=== PATIENT | female | born 1945 | race Caucasian/White ===

== ENCOUNTER 2018-11-11 01:39 | Emergency (ER) | payer MEDICARE ==
[~2018-11-11] VITALS: Ht 167.6 cm; Wt 52.2 kg
--- OUTSIDE RECORDS SUMMARY | ~2018-11-11 | XMS | Clinical Summary ---
Demographics + + + | Address | [address] | | | [place] [address] | + + + | Home Phone | | + + + | Preferred Language | Unknown | + + + | Marital Status | | + + + | Advent Affiliation | 1041 | + + + | Race | Unknown | + + + | Ethnic Group | Unknown | + + + Author + + + | Author | [facility] | + + + | Organization | [facility] | + + + | Address | [...] Team Providers + +------+ + | Care Special Events Assistant Name | Role | Phone | + +------+ + | Juan Dong MD | PP | | + +------+ + Allergies + + + + + + | Active Allergy | Reactions | Severity | Noted | Comments | | | | | Date | | + + + + + + | Codeine | Rash | Medium | 12/31/19 | | | | | | 15 | | + + + + + + | Prednisone | Red Man Syndrome | Medium | 01/19/20 | | | | | | 15 | | + + + + + + | Fluoxetine | Nausea and Vomiting | Low | 01/19/20 | | | | | | 15 | | + + + + + + | Zoledronic Acid | Nausea and Vomiting, | Medium | 01/22/20 | Loss of muscle | | | Other (See | | 18 | | | | Comments), Muscle | | | | | | Pain | | | | + + + + + + | Serotonin Reuptake | Anxiety, Rash | Medium | 12/31/19 | | | Inhibitors (Ssris) | | | 15 | | + + + + + + | Tramadol | Other (See Comments) | Medium | 01/19/20 | Blisters | | | | | 15 | | + + + + + + Current Medications + + +--------+---------+------+------+-------+ | Prescription | Sig. | Disp. | Refills | Star | End | Statu | | | | | | t | Date | s | | | | | | Date | | | + + +--------+---------+------+------+-------+ | omeprazole | Take 20 mg by mouth | | | | | Activ | | (PRILOSEC) 20 MG | every morning before | | | | | e | | capsule | breakfast. | | | | | | + + +--------+---------+------+------+-------+ | clonazePAM | Take 0.25 mg by | | | | | Activ | | (KLONOPIN) 0.5 MG | mouth daily. | | | | | e | | tabletIndications: | Indications: Take | | | | | | | Take half tabe by | half tabe by mouth | | | | | | | mouth every day. | every day. | | | | | | + + +--------+---------+------+------+-------+ | Coenzyme Q10 | Take by mouth | | | | | Activ | | (COQ10) 100 MG CAPS | daily. | | | | | e | + + +--------+---------+------+------+-------+ | Multiple | Take 1 tablet by | 30 | 0 | 05/0 | | Activ | | Vitamins-Minerals | mouth daily with | tablet | | 8/20 | | e | | (MULTIVITAMIN WITH | breakfast. | | | 15 | | | | MINERALS) tablet | | | | | | | + + +--------+---------+------+------+-------+ | Cholecalciferol | Take 2,000 Units by | | | | | Activ | | (VITAMIN D-3 PO) | mouth daily. | | | | | e | + + +--------+---------+------+------+-------+ | loratadine | Take 10 mg by mouth | | | | | Activ | | (CLARITIN) 10 MG | daily. | | | | | e | | tablet | | | | | | | + + +--------+---------+------+------+-------+ | ascorbic acid | Take 250 mg by mouth | | | | | Activ | | (VITAMIN C) 250 MG | daily. | | | | | e | | tablet | | | | | | | + + +--------+---------+------+------+-------+ | ferrous sulfate, | Take 65 mg of iron | | | | | Activ | | 65 FE, 324 (65 FE) | by mouth daily. | | | | | e | | MG EC tablet | | | | | | | + + +--------+---------+------+------+-------+ | aspirin 81 MG EC | Take 81 mg by mouth | | | | | Activ | | tablet | daily. | | | | | e | + + +--------+---------+------+------+-------+ | famotidine | Take 40 mg by mouth | | | | | Activ | | (PEPCID) 40 MG | daily. | | | | | e | | tablet | | | | | | | + + +--------+---------+------+------+-------+ | cyanocobalamin | Take 500 mcg by | | | | | Activ | | (VITAMIN B-12) 500 | mouth daily. | | | | | e | | MCG tablet | | | | | | | + + +--------+---------+------+------+-------+ Active Problems + + + | Problem | Noted Date | + + + | Sepsis(995.91) | 01/02/2015 | + + + | Anemia, unspecified | 01/02/2015 | + + + | Thrombocytopenia, unspecified | 01/02/2015 | + + + | Elevated liver enzymes | 01/02/2015 | + + + | STEMI (ST elevation myocardial infarction) | 12/31/2014 | + + + | Rhabdomyolysis | 12/30/2014 | + + + | BERTIN (acute kidney injury) | 12/30/2014 | + + + Resolved Problems + + + + | Problem | Noted | Resolved | | | Date | Date | + + + + | STEMI (ST elevation myocardial infarction) | 01/02/20 | | | | 15 | 5 | + + + + | Fever, unspecified | 12/31/19 | | | | 15 | 5 | + + + + | Delirium | 12/31/19 | | | | 15 | 5 | + + + + | Acute respiratory failure (HCC) | 12/31/19 | | | | 15 | 5 | + + + + | Metabolic acidosis | 12/31/19 | | | | 15 | 5 | + + + + | Severe sepsis with septic shock (HCC) | 12/31/19 | | | | 15 | 5 | + + + + Family History + + +------+ + | Medical History | Relation | Name | Comments | + + +------+ + | Diabetes type II | Father | | | + + +------+ + | Hypertension | Mother | | | + + +------+ + + +------+ + + | Relation | Name | Status | Comments | + +------+ + + | Father | | | acute pulmonary edema | | | | (Age | | | | | 83) | | + +------+ + + | Mother | | | | | | | (Age | | | | | 87) | | + +------+ + + Social History + +-------+ +--------+------+ | Tobacco Use | Types | Packs/Day | Years | Date | | | | | Used | | + +-------+ +--------+------+ | Former Smoker | | | | | + +-------+ +--------+------+ + +---+---+---+ | Smokeless Tobacco: | | | | | Never Used | | | | + +---+---+---+ + + | Comments: Cigars in college | + + + + +---------+ + | Alcohol Use | Drinks/We | oz/Week | Comments | | | ek | | | + + +---------+ + | Yes | | | | + + +---------+ + + + + | Sex Assigned at | Date Recorded | | | | + + + | Not on file | | + + + Last Filed Vital Signs + + + + | Vital Sign | Reading | Time Taken | + + + + | Blood Pressure | 110/70 | 01/21/2018 8:33 AM PDT | + + + + | Pulse | 69 | 01/21/2018 8:33 AM PDT | + + + + | Temperature | 36.3 C (97.4 F) | 01/11/2015 2:59 PM PDT | + + + + | Respiratory Rate | 20 | 01/21/2018 8:33 AM PDT | + + + + | Oxygen Saturation | 99% | 01/21/2018 8:33 AM PDT | + + + + | Inhaled Oxygen | - | - | | Concentration | | | + + + + | Weight | 53.2 kg (117 lb 3.2 | 01/21/2018 8:33 AM PDT | | | oz) | | + + + + | Height | 167.6 cm (5' 6") | 01/21/2018 8:33 AM PDT | + + + + | Body Mass Index | 18.92 | 01/21/2018 8:33 AM PDT | + + + + Plan of Treatment + + + + + | Health Maintenance | Due Date | Last Done | Comments | + + + + + | Vaccine: | | | | | Dtap/Tdap/Td (1 - | 6 | | | | Tdap) | | | | + + + + + | Breast Cancer | | | | | Screening | 7 | | | | (Mammogram) | | | | + + + + + | Colon Cancer | | | | | Screening | 7 | | | | (Colonoscopy) | | | | + + + + + | Vaccine: Zoster (1 | | | | | of 2) | 7 | | | + + + + + | DEXA SCAN SCREENING | | | | | | 2 | | | + + + + + | Vaccine: | | | | | Pneumococcal 65+ | 2 | | | | Low/Medium Risk (1 | | | | | of 2 - PCV13) | | | | + + + + + | Vaccine: Influenza | | | | | (#1) | 8 | | | + + + + + Results Not on filefrom Last 3 Months Insurance + +--------+ +--------+-------+---------+ | Payer | Benefi | Subscriber | Type | Phone | Address | | | t Plan | ID | | | | | | / | | | | | | | Group | | | | | + +--------+ +--------+-------+---------+ | [place] - GENERIC | [place]-GEN | [id number] | Medica | | | | | DONALD | | re | | | + +--------+ +--------+-------+---------+ + +--------+ +--------+ + + | Guarantor Name | Accoun | Relation to | Date | Phone | Billing Address | | | t Type | Patient | of | | | | | | | | | | + +--------+ +--------+ + + | JOSELYN LEUNG | Person | Self [birth year] | Home: | [address] | | | al/Kit | | 1946 | [phone] | [place] [address] | | | ike | | | [phone] | | + +--------+ +--------+ + +
--- OUTSIDE RECORDS SUMMARY | ~2018-11-11 | XMS | Clinical Summary ---
Demographics + + + | Address | [address] | | | [place] [address] | + + + | Home Phone [...] Team Providers + +------+ + | Care Print Line Inspector Name | Role | Phone | + +------+ + | Juan Dong MD | PP | | + +------+ + Source Comments [facility] and [facility] Allergies + + + + + + [...] Vomiting | | 03/19/20 | | | Kopn-Mooolfmh-Qnpzz | | | 17 | | + [...] + + + Current Medications + + +-------+---------+------+------+-------+ | Prescription | Sig. | Disp. | Refills | Star | End | Statu | | | | | | t | Date | s | | | | | | Date | | | + + +-------+---------+------+------+-------+ | cholecalciferol | Take 2,000 Units by | | | | | Activ | | (Vitamin D3) 1,000 | mouth once daily. | | | | | e | | unit oral tablet | | | | | | | + + +-------+---------+------+------+-------+ | | Take 1 tablet by | | | | | Activ | | multivitamin-mineral | mouth once daily. | | | | | e | | s oral tablet | | | | | | | + + +-------+---------+------+------+-------+ | Coenzyme Q10 10 mg | Take by mouth. | | | | | Activ | | oral capsule | | | | | | e | + + +-------+---------+------+------+-------+ | omeprazole 10 mg | Take 2 capsules by | | | 05/01 | | Activ | | oral capsule,delayed | mouth once daily. | | | 5/20 | | e | | release(DR/EC) | | | | 17 | | | + + +-------+---------+------+------+-------+ | acetaminophen 325 | Take 2 tablets by | | | 11/0 | | Activ | | mg oral | mouth every four | | | 8/20 | | e | | tabletIndications: | hours as needed. | | | 17 | | | | Primary | | | | | | | | hyperparathyroidism | | | | | | | | ([facility]) | | | | | | | + + +-------+---------+------+------+-------+ Active Problems + + + | Problem | Noted Date | + + + | Cough | 05/15/2017 | + + + | Seasonal allergies | 03/19/2017 | + + + | GERD (gastroesophageal reflux disease) | 03/19/2017 | + + + | Primary hyperparathyroidism (HCC) | 03/19/2017 | + + + | [...] Pressure | 100/52 | 07/08/2017 7:43 AM PST | + + + + | Pulse | 70 | 07/08/2017 7:43 AM PST | + + + + | Temperature | 36.8 C (98.2 F) | 07/08/2017 7:43 AM PST | + + + + | Respiratory Rate | 18 | 07/08/2017 7:43 AM PST | + + + + | Oxygen Saturation | 95% | 07/08/2017 7:43 AM PST | + + + + | Inhaled Oxygen | - | - | | Concentration | | | + + + + | Weight | 55.3 kg (122 lb) | 07/07/2017 8:54 AM PST | + + + + | Height | 168.9 cm (5' 6.5") | 07/07/2017 8:54 AM PST | + + + + | Body Mass Index | 19.4 | 07/07/2017 8:54 AM PST | + + + + Plan of Treatment + + + + + | Health Maintenance | Due Date | Last Done | Comments | + + + + + | Pneumococcal (Adult) | | | | | (1 of 2 - PCV13) | 2 | | | + + + + + | Influenza (Flu) | | | | | vaccination (#1) | 8 | | | + + + + + Results Not on filefrom Last 3 Months Insurance + +--------+ +------+ + + | Payer | Benefi | Subscriber | Type | Phone | Address | | | t Plan | ID | | | | | | / | | | | | | | Group | | | | | + +--------+ +------+ + + | [employer] | MODA | [phone] | PPO | [phone] [address] | | | MEDICA | | | [phone] | [place] [address] | | | RE PPO | | | | | + +--------+ +------+ + + + +--------+ +--------+ + + | Guarantor Name | Accoun | Relation to | Date | Phone | Billing Address | | | t Type | Patient | of | | | | | | | | | | + +--------+ +--------+ + + | PASTORA LEUNG | Person | Self [birth year] | Home: | [address] | | | al/Kit | | 1946 | [phone] | [place] [address] | | | ike | | | [phone] | | + +--------+ +--------+ + +
--- OUTSIDE RECORDS SUMMARY | ~2018-11-11 | XMS | Clinical Summary ---
Demographics + + + | Address | [address] | | | [place] [address] | + + + | Home Phone | | + + + | Preferred Language | Unknown | + + + | Marital Status | Single | + + + | Mormon Affiliation | 1041 | + + + | Race | Unknown | + + + | Ethnic Group | Unknown | + + + Author + + + | Author | [facility] | | | and [place] | + + + | Organization | [facility] | | | and [place] | + + + | Address | [...] Team Providers + +------+ + | Care Tank Crewmember Name | Role | Phone | + +------+ + | Mick Malik MD | PP | | + +------+ + Allergies + + + + + + | Active Allergy | Reactions | Severity | Noted | Comments | | | | | Date | | + + + + + + | Codeine Sulfate | | | | | + + + + + + | Serotonin Reuptake | | | 10/09/19 | | | Inhibitors (Ssris) | | | 12 | | + + + + + + | Tramadol Hcl | | | | | + + + + + + Current Medications + + +-------+---------+------+------+-------+ | Prescription | Sig. | Disp. | Refills | Star | End | Statu | | | | | | t | Date | s | | | | | | Date | | | + + +-------+---------+------+------+-------+ | gabapentin | Take 300 mg by mouth | | | 05/01 | | Activ | | (NEURONTIN) 300 mg | 3 times daily. | | | 01/17 | | e | | capsule | | | | 12 | | | + + +-------+---------+------+------+-------+ | Cholecalciferol | Take 2,000 Units by | | | 05/01 | | Activ | | (VITAMIN D3) 2000 | mouth Daily. | | | 01/17 | | e | | UNITS CAPS | | | | 12 | | | + + +-------+---------+------+------+-------+ | omeprazole | Take 20 mg by mouth | | | 05/01 | | Activ | | (PRILOSEC) 20 mg | 2 times daily. | | | 01/17 | | e | | capsule | | | | 12 | | | + + +-------+---------+------+------+-------+ | multivitamin | daily | | | 1 | | Activ | | (THERAGRAN) per | | | | 20 | | e | | tablet | | | | 12 | | | + + +-------+---------+------+------+-------+ | Calcium | 2 tablets two times | | | 09/1 | | Activ | | Citrate-Vitamin D | daily | | | 01/17 | | e | | (CITRACAL/VITAMIN D) | | | | 12 | | | | 250-200 MG-UNIT | | | | | | | | TABS | | | | | | | + + +-------+---------+------+------+-------+ | clonazePAM | one tablet at | | | 05/01 | | Activ | | (KLONOPIN) 0.5 mg | bedtime and twice | | | 01/17 | | e | | tablet | during the day as | | | 12 | | | | | needed | | | | | | + + +-------+---------+------+------+-------+ | Ibuprofen (ADVIL) | Take 200 mg by mouth | | | 05/01 | | Activ | | 200 MG CAPS | as needed. | | | 01/17 | | e | | | | | | 12 | | | + + +-------+---------+------+------+-------+ | Pseudoephedrine | TABS | | | 10/29 | | Activ | | HCl (SUDAFED PO) | | | | 11/17 | | e | | | | | | 12 | | | + + +-------+---------+------+------+-------+ Active Problems + + + | Problem | Noted Date | + + + | PERIPHERAL NEUROPATHY | 11/11/2011 | + + + | SACROILIITIS | | + + + | DEGENERATIVE DISC DISEASE, LUMBAR SPINE | | + + + | BACK PAIN, LUMBAR | | + + + | OSTEOARTHRITIS, LUMBOSACRAL SPINE | | + + + | ANXIETY DISORDER, GENERALIZED | | + + + | SPONDYLOLISTHESIS, LUMBAR | | + + + | DISTURBANCE OF SKIN SENSATION | | + + + | SOMATIC DYSFUNCTION, SPINE, SACRAL | | + + + | SCIATICA | | + + + | SCOLIOSIS | | + + + Social History + +-------+ [...] + + + | Blood Pressure | 118/76 | 11/26/2011 0000 PDT | + + + + | Pulse | - | - | + + + + | Temperature | - | - | + + + + | Respiratory Rate | - | - | + + + + | Oxygen Saturation | - | - | + + + + | Inhaled Oxygen | - | - | | Concentration | | | + + + + | Weight | 53.1 kg (117 lb) | 11/26/2011 0000 PDT | + + + + | Height | 167.6 cm (5' 6") | 10/09/2011 0000 PST | + + + + | Body Mass Index | 18.88 | 11/26/2011 0000 PDT | + + + + Plan [...] | | | + +--------+ +--------+-------+---------+ | [employer] | MODA | [id number] | Medica | | | | | HEALTH | | re | | | | | MDCR | | | | | + +--------+ +--------+-------+---------+ + [...] | [birth year] | Home: | [address] | | | al/[address] | | 1946 | [phone] | [place] [address] | | | ike | | | [phone] | | + +--------+ +--------+ + +
--- OUTSIDE RECORDS SUMMARY | ~2018-11-11 | XMS | Clinical Summary ---
Demographics + + + | Address | [address] | | | [place] [address] | + + + | Home Phone | | + + + | Preferred Language | Unknown | + + + | Marital Status | Single | + + + | Shinto Affiliation | CAT | + + + [...] Team Providers + +------+ + | Care Bookkeeping Clerk Name | Role | Phone | + +------+ + | Juan Dong MD | PP | | + +------+ + Source Comments STORMY is fully live on both [facility] and [facility] & [facility] Allergies + + + + + + [...] Vomiting | | 03/19/20 | | | Vxwn-Xbspfxov-Gggsh | | | 17 | | + [...] | MEDICA | | | [phone] | [place] [address] | | | RE PPO | | [...] | 1946 | [phone] | [place] [address] | | | ike | | | [phone] | | + +--------+ +--------+ + +
--- OUTSIDE RECORDS SUMMARY | ~2018-11-11 | XMS | Clinical Summary ---
Demographics + + + | Address | [address] | | | [place] [address] | + + + | Home Phone | | + + + | Preferred Language | Unknown | + + + | Marital Status | | + + + | Episcopal Affiliation | 1041 | + + + | Race | Unknown | + + + | Ethnic Group | Unknown | + + + Author + + + | Author | [facility] | + + + | Organization | [facility] | + + + [...] Team Providers + +------+ + | Care Manager Of Employee Relations Name | Role | Phone | + [...] | MA - GENERIC | MA-GEN | [id number] | Medica | | | | | [...] | 1946 | [phone] | [place] [address] | | | ike | | | [phone] | | + +--------+ +--------+ + +
--- OUTSIDE RECORDS SUMMARY | ~2018-11-11 | XMS | Clinical Summary ---
Demographics + + + | Address | [address] | | | [place] [address] | + + + | Home Phone | | + + + | Preferred Language | Unknown | + + + | Marital Status | Single | + + + | Anabaptism Affiliation | 1041 | + + + | Race | Unknown | + + + | Ethnic Group | Unknown | + + + Author + + + | Author | [facility] | | | and [place] | + + + | Organization | [facility] | | | and [place] | [...] Team Providers + +------+ + | Care Power Crane Operator Name | Role | Phone | [...] | [employer] | MODA | [id number] | Medica | | | | | [...] | 1946 | [phone] | [place] [address] | | | ike | | | [phone] | | + +--------+ +--------+ + +
[~2018-11-11 01:39] MED LIST: ASPIRIN EC81 MG PO; CLONAZEPAM0.5 MG PO; COQ-10100 MG PO; METFORMIN HCL500 MG PO; MULTI COMPLETE1 EACH PO; PRILOSEC20 MG PO; VITAMIN D2000 UNI1 PO
[2018-11-11] MEDS ORDERED: FAMOTIDINE40 MG PO (01:55)
--- NOTE | 2018-11-11 07:35 | EKG ---
[facility] [address] [facility] [place], [place] [address] Signed Normal sinus rhythm Low voltage QRS Possible Inferior infarct , age undetermined Abnormal ECG No previous ECGs available Confirmed by STEFFANIE WICK MD ([id number]) on 11/11/2018 7:35:00 AM Electronically Signed By: STEFFANIE WICK MD 11/11/18 0735 PATIENT NAME: PASTORA TREJO Electrocardiogram DATE OF : 47 PHYSICIAN: STEFFANIE WICK MD REPORT #: [id number] REPORT IS CONFIDENTIAL AND NOT TO BE RELEASED WITHOUT AUTHORIZATION
== END 2018-11-11 03:28 | disposition home or self-care (01) ==
LOC: ED 01:39
DX: M79.7 Fibromyalgia (principal); E11.9 Type 2 diabetes mellitus without complications; K21.9 Gastro-esophageal reflux disease without esophagitis; Z88.5 Allergy status to narcotic agent; Z88.8 Allergy status to other drugs, medicaments and biological substances; Z79.899 Other long term (current) drug therapy
CPT/HCPCS: 71045; 80053; 84484; 85025; 93005; 93010; 99284-25

== ENCOUNTER 2019-12-22 07:26 | Emergency (ER) | payer MEDICARE, OTHER ==
[~2019-12-22] VITALS: Ht 167.6 cm; Wt 53.5 kg
[~2019-12-22 07:26] MED LIST changes: +CIPROFLOXACIN500 MG PO; +FAMOTIDINE40 MG PO
== END 2019-12-22 09:34 | disposition home or self-care (01) ==
LOC: ED 07:26
DX: G43.909 Migraine, unspecified, not intractable, without status migrainosus (principal); E87.1 Hypo-osmolality and hyponatremia; E11.9 Type 2 diabetes mellitus without complications; K21.9 Gastro-esophageal reflux disease without esophagitis; Z88.5 Allergy status to narcotic agent; Z79.899 Other long term (current) drug therapy
CPT/HCPCS: 80048; 96374; 96375; 99284-25; J0780; J1100; J1200; J1885; J7030

== ENCOUNTER 2020-05-21 14:24 | Emergency (ER) | payer MEDICARE, OTHER ==
[~2020-05-21] VITALS: Ht 167.6 cm; Wt 53.5 kg
--- OUTSIDE RECORDS SUMMARY | ~2020-05-21 | XMS | Encounter Summary ---
Demographics + + + | Address | [address] | | | [place] [address] | + + + | Home Phone | | + + + | Preferred Language | Unknown | + + + | Marital Status | Single | + + + | Restoration Affiliation | 1041 | + + + | Race | White | + + + | Ethnic Group | Not or | + + + Author + + + | Author | [facility] | | | and [place] | + + + | Organization | [facility] | | | and [place] | + + + | Address | Unknown | + + + | Phone | Unavailable | + + + Support + + +---------+ + | Name | Relationship | Address | Phone | + + +---------+ + | Douglas Springer | ECON | Unknown | | + + +---------+ + | Isabelel Bell | ECON | Unknown | | + + +---------+ + | Facundo Springer | ECON | Unknown | | + + +---------+ + Care Team Providers + +------+ + | Care Database Administration Project Manager Name | Role | Phone | + +------+ + | Juan Dong MD | PCP | | + +------+ + Encounter Details +--------+ + + + + | Date | Type | Department | Care Team | Description | +--------+ + + + + | 12/02/ | Hospital | [facility] | Caitlin Shore | Visit for screening | | 2016 | Encounter | [facility] | Lissett Gomez DO | mammogram | | | | [address] | [address] | | | | | [place] | [place] | | | | | [address] | [id number] | | | | | [phone] | | | +--------+ + + + + Social History + +-------+ +--------+------+ | Tobacco Use | Types | Packs/Day | Years | Date | | | | | Used | | + +-------+ +--------+------+ | Never Assessed | | | | | + +-------+ +--------+------+ + + + | Sex Assigned at | Date Recorded | | | | + + + | Not on file | | + + + documented as of this encounter Medications at Time of Discharge + + + +---------+ + + | Medication | Sig | Dispensed | Refills | Start | End Date | | | | | | Date | | + + + +---------+ + + | Cholecalciferol | Take 2,000 Units by | | 0 | 05/15/20 | | | (VITAMIN D3) 2000 | mouth Daily. | | | 12 | | | UNITS CAPS | | | | | | + + + +---------+ + + | Multiple | Take 1 tablet by | | 0 | 01/06/20 | | | Vitamins-Minerals | mouth daily with | | | 15 | | | (MULTIVITAMIN WITH | breakfast. | | | | | | MINERALS) tablet | | | | | | + + + +---------+ + + | Calcium | 2 tablets two times | | 0 | 05/15/20 | | | Citrate-Vitamin D | daily | | | 12 | 9 | | (CITRACAL/VITAMIN D) | | | | | | | 250-200 MG-UNIT | | | | | | | TABS | | | | | | + + + +---------+ + + | clonazePAM | one tablet at | | 0 | 05/15/20 | | | (KLONOPIN) 0.5 mg | bedtime and twice | | | 12 | 9 | | tablet | during the day as | | | | | | | needed | | | | | + + + +---------+ + + | gabapentin | Take 300 mg by mouth | | 0 | 05/15/20 | | | (NEURONTIN) 300 mg | 3 times daily. | | | 12 | 9 | | capsule | | | | | | + + + +---------+ + + | Ibuprofen (ADVIL) | Take 200 mg by mouth | | 0 | 05/15/20 | | | 200 MG CAPS | as needed. | | | 12 | 9 | + + + +---------+ + + | multivitamin | daily | | 0 | 05/15/20 | | | (THERAGRAN) per | | | | 12 | 9 | | tablet | | | | | | + + + +---------+ + + | omeprazole | Take 20 mg by mouth | | 0 | 05/15/20 | | | (PRILOSEC) 20 mg | 2 times daily. | | | 12 | 9 | | capsule | | | | | | + + + +---------+ + + | Pseudoephedrine | TABS | | 0 | 11/11/19 | | | HCl (DEDE PO) | | | | 12 | 9 | + + + +---------+ + + documented as of this encounter Plan of Treatment Not on filedocumented as of this encounter Procedures + +--------+ + + + | Procedure Name | Priori | Date/Time | Associated Diagnosis | Comments | | | ty | | | | + +--------+ + + + | ASHANTI TOMOSYN | Routin | 12/03/2015 | Visit for | Results for this | | SCREENING BILATERAL | e | 11:03 AM | screening mammogram | procedure are in the | | | | PDT | | results section. | + +--------+ + + + documented in this encounter Results ASHANTI Tomosynthesis Screening Bilateral (12/03/2015 11:03 AM PDT) + + | Specimen | + + | | + + + + + | Narrative | Performed At | + + + | DIGITAL MAMMOGRAM WITH COMPUTER ASSISTED DIAGNOSIS AND | [facility] | | TOMOSYNTHESIS: 12/03/2015 10:45 AM CLINICAL HISTORY: Screening | | | COMPARISON: 2013 and 2014 FINDINGS: Digital MLO and CC views of | | | the breast along with bilateral breast tomosynthesis. The breast | | | parenchyma is of scattered fibroglandular density. Stable | | | asymmetric glandular tissue upper outer right breast. No underlying | | | mass or architectural distortion on tomosynthesis. No new mass or | | | area of distortion. No suspicious or clustered microcalcifications. | | | IMPRESSION - BI-RADS category 2-benign. RECOMMENDATION: Annual | | | screening. Dictated and Signed by: Bryan Flores MD | | | Electronically signed: 12/04/2015 7:41 AM | | + + + + + | Procedure Note | + + | Flavio, Rad Results In - 12/04/2015 7:44 AM PDT DIGITAL MAMMOGRAM WITH COMPUTER | | ASSISTED DIAGNOSIS AND TOMOSYNTHESIS: 12/03/201510:45 AMCLINICAL HISTORY: | | ScreeningCOMPARISON: 2013 and 2014FINDINGS: Digital MLO and CC views of the breast along | | with bilateral breasttomosynthesis. The breast parenchyma is of scattered | | fibroglandular density. Stable asymmetric glandular tissue upper outer right breast. No | | underlying massor architectural distortion on tomosynthesis. No new mass or area of | | distortion.No suspicious or clustered microcalcifications.IMPRESSION - BI-RADS category | | 2-benign.RECOMMENDATION: Annual screening.Dictated and Signed by: Bryan Flores MD | | Electronically signed: 12/04/2015 7:41 AM | | | |Stable asymmetric glandular tissue upper outer right breast. No underlying mass | |or architectural distortion on tomosynthesis. No new mass or area of distortion. | |No suspicious or clustered microcalcifications. | | | |IMPRESSION - BI-RADS category 2-benign. | | | |RECOMMENDATION: Annual screening. | | | |Dictated and Signed by: Bryan Flores MD | | Electronically signed: 12/04/2015 7:41 AM | + + + +---------+ + + | Performing | Address | City/State/Zipcode | Phone Number | | Organization | | | | + +---------+ + + | [facility] | | | | + +---------+ + + documented in this encounter Visit Diagnoses + + | Diagnosis | + + | Visit for screening mammogram Other screening mammogram | + + documented in this encounter"
--- OUTSIDE RECORDS SUMMARY | ~2020-05-21 | XMS | Encounter Summary ---
Demographics + + + | Address | [address] | | | [place] [address] | + + + | Home Phone | | + + + | Preferred Language | Unknown | + + + | Marital Status | Single | + + + | Confucianism Affiliation | 1041 | + + + | Race | White | + + + | Ethnic Group | Not or | + + + Author + + + | Author | [facility] | | | and [place] | + + + | Organization | [facility] | | | and [place] | + + + | Address | Unknown | + + + | Phone | Unavailable | + + + Support + + +---------+ + | Name | Relationship | Address | Phone | + + +---------+ + | Douglas Springer | ECON | Unknown | | + + +---------+ + | Isabel Bell | ECON | Unknown | | + + +---------+ + | Facundo Springer | ECON | Unknown | | + + +---------+ + Care Team Providers + +------+ + | Care Electric Arc Welder Name | Role | Phone | + +------+ + PCP | Unavailable | + +------+ + Encounter Details +--------+ + + + + | Date | Type | Department | Care Team | Description | +--------+ + + + + | 04/08/ | Hospital | [facility] | | | | 1998 | Encounter | [facility] | | | | | | CONV DEPT [address] | | | | | | [place], | | | | | | [place] [address] | | | | | | [phone] | | | +--------+ + + + [...] Not on filedocumented as of this encounter Visit Diagnoses Not on filedocumented in this encounter"
--- OUTSIDE RECORDS SUMMARY | ~2020-05-21 | XMS | Encounter Summary ---
Demographics + + + | Address | [address] | | | [place] [address] | + + + | Home Phone | | + + + | Preferred Language | Unknown | + + + | Marital Status | Single | + + + | Episcopalian Affiliation | 1041 | + + + | Race | White | + + + | Ethnic Group | Not or | + + + Author + + + | Author | [facility] | | | and [place] | + + + | Organization | [facility] | | | and [...] Team Providers + +------+ + | Care Visual Design Lead Name | Role | Phone | + +------+ + | Juan Dong MD | PCP | | + +------+ + Encounter Details +--------+ + + + + | Date | Type | Department | Care Team | Description | +--------+ + + + + | 12/30/ | Hospital | [facility] | Adonay Sesay MD | STEMI (ST elevation | | 2015 - | Encounter | [facility] | [address] | myocardial | | | | CARE FLOOR [address] | [place] [address] | infarction) ([facility]) | | 01/05/ | | [address] | [phone] | | | 2015 | | [place], [place] | | | | | | [address] | | | | | | [phone] | | | +--------+ + + + [...] + + documented as of this encounter Discharge Summaries Diane Nichols MD - 01/05/2015 11:01 AM PDT Discharge Summaries by Diane Nichols MD at 01/05/15 1101 Author: Diane Nichols MD Service: (none) Author Type: Physician Filed: 01/05/15 1601 Date of Service: 01/05/15 1101 Status: Signed Planning Assistant: Diane Nichols MD (Physician) Related Notes: Original Note by Diane Nichols MD (Physician) filed at 01/05/15 1126 [facility] Service: Hospitalist Physician Discharge Summary Patient ID: Pastora Trejo 1945 69 y.o. Admit date: 12/30/2014 Discharge date: 01/05/2015 Admitting Physician: Adonay Sesay MD Discharge Physician: Diane Nichols MD Consultants: Treatment Team: Consulting Physician: Clifford Quick DO Consulting Physician: Giorgi Javier MD Admitting Provider: Adonay Sesay MD Primary Discharge Diagnoses: Sepsis(995.91) resolved Secondary Discharge Diagnoses: Rhabdomyolysis Acute renal failure resolving STEMI (ST elevation myocardial infarction) Anemia, unspecified Thrombocytopenia, unspecified Elevated liver enzymes HPI and Hospital Course: A 69-year-old female with a past medical history of diabetes and history of getting dehydra debbie fast, was present at [facility] on December 30, 2014. She had a white count of 11,00 0 and was hypotensive and also had a fever of 105. She was given 5 liters of normal saline a nd then went into pulmonary edema. The patient was then transferred to the intensive care un it at [facility]. The patient was admitted with severe sepsis and septic shock. She also went into acute respiratory failure possibly secondary to pneumonia and als o required intubation. Also, infectious diseases was consulted, and she was started on broad -spectrum antibiotics. The patient also had acute renal failure secondary to the septic shoc k and the patient also had elevated LFTs. The patient also had ST-elevation UT in the intens cuca care unit and received aspirin and was treated with heparin. The patient was extubated, stabilized and transferred to the medical floor. The patient was restarted on a small dose o f metoprolol and Dr. Javier recommended outpatient cardiology followup. She was not started on Lisinopril or lipid-lowering therapy as the patient has an elevated creatinine and her LFTs continue to be high. This was explained to the patient and her family. Will require outpati ent followup to start the patient on an HARSHA inhibitor and lipid-lower therapy. The patient a lso had anemia and thrombocytopenia which are improving. The patient was started on ciproflo xacin and doxycycline and has been doing well. The patient has been ambulating with no diffi culty and has remained hemodynamically stable. She will follow up outpatient with cardiology and with Dr. Quick. Echocardiogram showed a normal ejection fraction. Blood cultures and CSF cultures have all been negative. Stool for Clostridium difficile was also negative. The kira n has been explained in detail to the patient and her . All data was reviewed with marie melgoza. All questions have been answered. Her creatinine is trending down. LFTs are trending karin n. Patient to be discharged home today with outpatient followup. Past Medical History: No past medical history on file. No past surgical history on file. Discharged Condition: Stable for discharge as stated above. Significant Diagnostic Studies: Ct Chest Abdomen Pelvis Without Contrast 12/31/2014 1. Large bilateral lower lobe consolidations and small effusions, suspicious fo r pneumonia. 2. Pancolitis. C. difficile colitis is possible. 3. NG tube tip in the transver se duodenum. [facility] Electronically signed by Vasyl Silver MD on Dec 31 2014 4:59AM Referring Provider Line: [phone] ID: [id number] X-ray Chest 1 View 01/01/2015 FINDINGS/ IMPRESSION: Endotracheal tube 4.4 cm above the jeramie. Enteric tube p assing below the level of diaphragm. Right internal jugular central venous catheter tip with in the proximal right atrium. Bilateral small pleural effusions with adjacent basilar atele ctasis. No pneumothorax. Lungs are otherwise clear. No acute osseous abnormality. Electr onically signed by Shekhar Hu MD on 01/01/2015 6:47 AM X-ray Chest 1 View 12/31/2014 1. Overall no interval change compared to the prior study. Bilateral lower lobe airspace densities/infiltrate and small moderate sized bilateral effusion X-ray Chest Ap Only 12/31/2014 1. Life-support devices as reported above with interval intubation and placemen t of a nasogastric tube 2. Interval progression of the bilateral lower lobe airspace densit ies and small effusions infiltrate versus edema. X-ray Chest Ap Only 12/30/2014 FINDINGS/ IMPRESSION: Right internal jugular central venous catheter with tip i n the proximal right atrium. No pneumothorax. Bilateral diffuse airspace disease, consisten t with pulmonary edema or diffuse infection. Left pleural effusion. Upper mediastinal cont ours are normal. Heart size is normal. Bibasilar atelectasis. Echo Cardiac Adult Complete 01/01/2015 1. Sinus rhythm. 2. A 2-dimensional transthoracic echocardiogram with m-mode, sp ectral and color flow Doppler was perfomed. 3. This was a technically difficult study with s uboptimal apical views. 4. Overall left ventricular systolic function is low-normal with, an EF between 50 - 55 %. 5. The left ventricle cavity size is normal. 6. Left ventricular wall thickness is normal. 7. The diastolic filling pattern indicates impaired relaxation consist ent with mild dysfunction (Grade I). 8. The right ventricle is normal in size. 9. The left a trial size is normal. 10. The right atrial size is normal. 11. The aortic valve is trileafle t and appears structurally normal. 12. There is no evidence of aortic regurgitation. 13. The re is no evidence of aortic stenosis. 14. The mitral valve is normal. 15. There is trace lotus ral regurgitation. 16. Mild mitral annular calcification present. 17. The tricuspid valve ap pears structurally normal. 18. Mild tricuspid regurgitation present. 19. There is no evidenc e of pulmonary hypertension. 20. The right ventricular systolic pressure (pulmonary artery s ystolic pressure), as measured by Doppler, is 29.00mmHg. 21. The pulmonic valve was not well visualized. 22. Trace pulmonic regurgitation 23. There is no pericardial effusion. 24. The IVC is normal size (1.5-2.5cm) and collapses <50% with sniff, consistent with central venous pressures of 10-15mmHg. Discharge Vitals: Filed Vitals: 01/04/15 2317 01/05/15 0100 01/05/15 0417 01/05/15 0800 BP: 112/62 125/70 138/70 122/69 Pulse: 74 77 79 89 Temp: 97.8 F (36.6 C) 97.5 F (36.4 C) 97.7 F (36.5 C) 96 F (35.6 C) TempSrc: Oral Axillary Axillary Axillary Resp: 20 16 16 18 Height: Weight: 62.959 kg (138 lb 12.8 oz) SpO2: 93% 95% 97% 97% Discharge Exam: General: Well nourished. Psych: Alert and oriented x 3. Calm, cooperative. Cardiovascular: Regular rate and rhythm, no murmurs, no thrills. Normal PMI. Respiratory: Clear to auscultation, no wheezing or crackles, breathing non labored. Decrea sed breath sounds bilaterally Gastrointestinal: Soft, non-tender, non-distended, positive bowel sounds. No HSM. Musculoskeletal: No edema in bilateral lower extremities. No joint swelling. Skin: Warm and dry, no rashes. Neck: No JVD, Trachea midline. Neurological: Non focal. Motor grossly intact. LABS: Recent Labs Lab 01/05/15 0440 01/04/15 0412 01/03/15 0408 WBC 9.08 9.04 12.44* RBC 3.19* 2.93* 2.94* HGB 8.5* 7.8* 7.8* HCT 26.0* 23.7* 23.7* MCV 81.4 81.0 80.6 MCH 26.5* 26.8* 26.5* MCHC 32.6 33.1 32.8 RDW 39.8 39.4 38.5 PLT 119* 65* 56* MPV 9.7 9.0 9.2 DIFFTYPE MANUAL MANUAL MANUAL Recent Labs Lab 01/05/15 04401/04/15 1450 01/04/1541101/03/15 0408 NA 139 -- 140 -- 139 K 3.8 3.9 3.3* < > 2.9* CL 103 -- 105 -- 100 CO2 29 -- 29 -- 30 BUN 13 -- 19 -- 27* CREATININE 1.06* -- 1.17* -- 1.51* PROT 5.7* -- 5.4* -- 5.8* BILITOT 1.8* -- 1.5 -- 2.0* ALT 136* -- 167* -- 209* AST 77* -- 115* -- 187* GLUF 93 -- 95 -- 78 < > = values in this interval not displayed. Recent Labs Lab 01/05/1543901/04/15 1050 01/04/1541101/03/15 0408 12/31/14 1622 12/31/14 0633 12/31/14 0046 CKTOTAL 322* -- 434* 908* < > 4956* 6104* 6732* TROPONINI -- 4.53* 6.01* 5.86* < > 7.52* 0.121* 0.178* CKMBINDEX -- -- -- -- -- 0.7 0.6 0.6 < > = values in this interval not displayed. Recent Labs Lab 01/05/1543901/04/1541101/03/15 2045 PHOS 2.5 2.9 1.8* Recent Labs Lab 01/05/1543901/04/1541101/03/15 0408 MG 1.7 1.8 2.2 Invalid input(s): ABG Disposition: Home Follow up: Giorgi Javier MD [address] [place] [address] Schedule an appointment as soon as possible for a visit in 2 weeks Clifford Quick DO [address] [facility] [address] Schedule an appointment as soon as possible for a visit in 1 week Juan Dong MD [address] [address] Schedule an appointment as soon as possible for a visit in 4 days Medication List START taking these medications aspirin 325 MG tablet QTY: 30 tablet Refills: 0 Take 1 tablet by mouth daily with breakfast. ciprofloxacin 500 MG tablet QTY: 14 tablet Refills: 0 Commonly known as: CIPRO Take 1 tablet by mouth Two times daily-Quinalones. doxycycline 100 MG tablet QTY: 14 tablet Refills: 0 Commonly known as: VIBRA-TABS Take 1 tablet by mouth every 12 (twelve) hours. metoprolol 25 MG tablet QTY: 30 tablet Refills: 0 Commonly known as: LOPRESSOR Take 0.5 tablets by mouth 2 (two) times daily. CHANGE how you take these medications * B COMPLEX PLUS VITAMIN C PO Refills: 0 What changed: Another medication with the same name was added. Make sure you understand ho w and when to take each. * multivitamin with minerals tablet QTY: 30 tablet Refills: 0 Take 1 tablet by mouth daily with breakfast. What changed: You were already taking a medication with the same name, and this prescripti on was added. Make sure you understand how and when to take each. * Notice: This list has 2 medication(s) that are the same as other medications prescribed for you. Read the directions carefully, and ask your doctor or other care provider to revie w them with you. CONTINUE taking these medications clonazePAM 0.5 MG tablet Refills: 0 Commonly known as: KlonoPIN CoQ10 100 MG Caps Refills: 0 omeprazole 20 MG capsule Refills: 0 Commonly known as: PRILOSEC Vitamin D-3 1000 UNITS Caps Refills: 0 STOP taking these medications metFORMIN 500 MG 24 hr tablet Commonly known as: GLUCOPHAGE-XR Where to Get Your Medications These are the prescriptions that you need to pick up attendant. You may get the following medications from any pharmacy - aspirin 325 MG tablet - ciprofloxacin 500 MG tablet - doxycycline 100 MG tablet - metoprolol 25 MG tablet - multivitamin with minerals tablet Diane Nichols MD 01/05/2015 11:01 AM Discharge took 40 minutes, to include final examination, discussion of admission, and prep aration of prescriptions, instructions for ongoing care, follow up and dictation of summary. This entry has been created using [employer] Speech Recognition software and [employer] The entry has been reviewed and there may still exist sound alike word errors. documented in th is encounter Medications at Time of Discharge + [...] 0 | 11/11/19 | | | HCl (SUDAFED PO) | | | | 12 | 9 | + + + +---------+ + + documented as of this encounter Progress Notes Conversion Transaction, Provider Unknown - 01/05/2015 12:28 PM PDTFormatting of this note m ight be different from the original. Progress Notes by Lyudmila Grijalva RN at 01/05/15 1228 Author: Lyudmila Grijalva RN Service: (none) Author Type: Registered Nurse Filed: 01/05/15 1229 Date of Service: 01/05/15 1228 Status: Signed Planning Assistant: Lyudmila Grijalva RN (Registered Nurse) Patient discharged to home. Patient was given discharge informations and had their question s answered. Patient was notified she should call the doctor if something is wrong. Patient was given information on Cardiac and Renal diet. I informed her to get labs drawn and sent t o her primary care provider. Lyudmila Grijalva RN Patricia Harris MD - 01/05/2015 10:13 AM PDT Progress Notes by Patricia Harper MD at 01/05/15 1013 Author: Patricia Harper MD Service: Infectious Disease Author Type: Physician Filed: 01/05/15 1044 Date of Service: 01/05/15 1013 Status: Signed Planning Assistant: Patricia Haprer MD (Physician) [facility] Service: Infectious Disease Progress Note Hospital Day: LOS: 6 days Post-Op Day: * No surgery found * SUBJECTIVE Patient Summary: 69 y.o. female with no significant past medical history, no chronic illnesses, known to get dehydrated easily due to small body habitus who was in her usual [facility] and recently attended a fitness class. Following that, the patient had reporte d some low back pain and thought that she might have strained a muscle. 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 Yesterday the patient started having nausea, vomiting, diar nelson and fever and was taken to the emergency department at [facility]. She had mild leukopenia there and low-grade fever. She was given cefepime and vancomycin and transfe rred to the ICU here for further management. Labs on arrival showed worsening rhabdomyolysis , renal failure, pancytopenia. She has been started on cefepime doxycycline and Cipro. She r emains on doxycycline and Cipro at this time, clinically improving, all workup negative incl uding stool cultures. Brucella and Q fever antibodies pending. CC: diarrheal illness, severe sepsis Chart reviewed: No new events. Subjective Patient feels well-ambulated and also Still has intermittent loose stools-more formed Denies any nausea vomiting Tolerating oral antibiotics Denies any rash or abdominal pain Scheduled Medications aspirin 325 mg Oral Daily with breakfast cholecalciferol 2,000 Units Oral Daily ciprofloxacin 500 mg Oral BIDQ co-enzyme Q-10 100 mg Oral Daily denture cleanser 1 tablet Does not apply Daily doxycycline 100 mg Oral 2 times per day insulin aspart 0-3 Units Subcutaneous Nightly insulin aspart 0-6 Units Subcutaneous TID AC metoprolol 12.5 mg Oral BID multivitamin with minerals 1 tablet Oral Daily with breakfast pantoprazole 40 mg Oral QAM AC Continuous Infusions dextrose PRN Medications benzocaine-menthol, dextrose, dextrose, dextrose, glucagon, glucagon, magnesium sulfate O R magnesium sulfate OR magnesium sulfate OR magnesium sulfate, ondansetron OR ondansetron, phosphorus OR sodium phosphate IVPB 10 mmol OR sodium phosphate IVPB 20 mmol, polyethylene glycol, potassium chloride OR potassium chloride OR potassium ch loride OBJECTIVE Vital Signs: BP 122/69 | Pulse 89 | Temp(Src) 96 F (35.6 C) (Axillary) | Resp 18 | Ht 1.651 m (5' 5" ) | Wt 62.959 kg (138 lb 12.8 oz) | BMI 23.10 kg/m2 | SpO2 97% | ? No Temp (24hrs), Av.7 F (36.5 C), Min:96 F (35.6 C), Max:98.3 F (36.8 C) Const: Vitals reviewed. No acute distress Skin: No rashes, no edema Tongue appears well-hydrated. No thrush Lungs: CTAB, no rales or wheezes Heart: RRR, no murmur Abd: soft, NT, + bowel sounds Alert and appropriate DATA CBC: Lab Results Component Value Date WBC 9.08 01/05/2015 RBC 3.19* 01/05/2015 HGB 8.5* 01/05/2015 HCT 26.0* 01/05/2015 MCV 81.4 01/05/2015 MCH 26.5* 01/05/2015 MCHC 32.6 01/05/2015 RDW 39.8 01/05/2015 PLT 119* 01/05/2015 MPV 9.7 01/05/2015 DIFFTYPE MANUAL 01/05/2015 CMP: Lab Results Component Value Date NA 139 01/05/2015 K 3.8 01/05/2015 CL 103 01/05/2015 CO2 29 01/05/2015 ANIONGAP 12 01/05/2015 GLUF 93 01/05/2015 BUN 13 01/05/2015 CREATININE 1.06* 01/05/2015 BCR 12 01/05/2015 CA 9.0 01/05/2015 PROT 5.7* 01/05/2015 ALB 2.8* 01/05/2015 BILITOT 1.8* 01/05/2015 ALP 113 01/05/2015 AST 77* 01/05/2015 ALT 136* 01/05/2015 EGFR 55* 01/05/2015 Component Latest Ref Rng 01/02/2015 01/03/2015 01/04/2015 01/05/2015 3:43 AM 4:08 AM 4:12 AM 4:40 AM TOTAL PROTEIN 6.3 - 8.2 g/dL 5.5 (L) 5.8 (L) 5.4 (L) 5.7 (L) ALBUMIN 3.3 - 4.8 g/dL 3.0 (L) 2.9 (L) 2.7 (L) 2.8 (L) TBIL 0.1 - 1.5 mg/dL 2.6 (H) 2.0 (H) 1.5 1.8 (H) BILI, DIRECT 0.0 - 0.3 mg/dL 0.4 (H) 0.3 0.4 (H) 0.3 ALK PHOS 35 - 115 U/L 98 125 (H) 114 113 AST 10 - 45 U/L 308 (H) 187 (H) 115 (H) 77 (H) ALT 10 - 65 U/L 239 (H) 209 (H) 167 (H) 136 (H) Microbiology: Stool cultures pending. Blood cultures negative so far. Serology for Brucella and Q fever pending. 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 Differen tial diagnosis includes gastroenteritis secondary to cattle associated scottie such as Escheri alana coli, although foodborne illness is also possible. Consideration was also given to Q fe kun and Brucella. So for stool culture, rotavirus and C. difficile negative. With elevation in liver enzymes, creatinine, CPK, GI symptoms-also check for Leptospira. Patient on oral doxycycline and ciprofloxacin Tolerating well. Fever, unspecified (12/30/2014) Resolved. We will continue to monitor. Rhabdomyolysis (12/30/2014) Component CPK Latest Ref Rng 30 - 240 U/L 12/31/2014 12:46 AM 6732 (H) 12/31/2014 6:33 AM 6104 (H) 12/31/2014 4:22 PM 4956 (H) 01/01/2015 5:50 AM 4131 (H) 01/01/2015 1:48 PM 3441 (H) 01/01/2015 6:08 PM 2897 (H) 01/03/2015 4:08 AM 908 (H) 01/04/2015 4:12 AM 434 (H) 01/05/2015 4:40 AM 322 (H) Suspect secondary to severe sepsis. Steadily improving. Continue attention to hydration. BERTIN (acute kidney injury) (12/30/2014) most likely secondary to acute dehydration and rhabdomyolysis. Component CREATININE Latest Ref Rng 0.50 - 1.00 mg/dL 12/30/2014 10:20 PM 2.48 (H) 12/31/2014 3:45 AM 1.97 (H) 12/31/2014 6:33 AM 2.07 (H) 12/31/2014 12:42 PM 2.18 (H) 12/31/2014 5:52 PM 1.98 (H) 01/01/2015 4:40 AM 1.73 (H) 01/02/2015 3:43 AM 1.97 (H) 01/03/2015 4:08 AM 1.51 (H) 01/04/2015 4:12 AM 1.17 (H) 01/05/2015 4:40 AM 1.06 (H) Consistent improvement noted , antibiotics may be dosed at regular dose Patient may be discharged on doxycycline and ciprofloxacin for 7 more days. To follow-up in the office in one week Code Status: Full Code Patricia Harper MD 01/05/2015 onversio n Transaction, Provider Unknown - 01/05/2015 8:46 AM PDTFormatting of this note might be di fferent from the original. Progress Notes by Cristina Kirkland RN at 01/05/15845 Author: Cristina Kirkland RN Service: (none) Author Type: Registered Nurse Filed: 01/05/15845 Date of Service: 01/05/15845 Status: Signed Planning Assistant: Cristina Kirkland RN (Registered Nurse) Patient up walking in the hallway with her , able to ambulate without her walker, st neeta gait noted. Denied any dizziness or light headedness, no chest pain/pressure or SOB. Royal Kirkland RN iane Rocha MD - 01/04/2015 2:44 PM PDTFormatting of this note might be different from t elsy original. Progress Notes by Diane Nichols MD at 01/04/151443 Author: Diane Nichols MD Service: (none) Author Type: Physician Filed: 01/04/15 1915 Date of Service: 01/04/151443 Status: Signed Planning Assistant: Diane Nichols MD (Physician) [facility] Service: Hospitalist Progress Note Hospital Day: LOS: 5 days SUBJECTIVE Patient Summary: 69-year-old female with history of Diabetes admitted to the intensi ve care unit with septic shock. Patient also had a ST elevation UT and cardiology consult w as obtained patient was treated with heparin and aspirin. Patient also had acute respirator y failure which required intubation. The patient also had bilateral pneumonia on CT scan an d infectious disease is consulted. She also had acute renal insufficiency secondary to dehy dration and rhabdomyolysis. Septic shock was thought to be secondary to acute gastroenterit is and aspiration pneumonia. Events Overnight: Denies any chest pain, shortness of breath dizziness. She has been able to ambulate in the hallway with no difficulty. Scheduled Medications [START ON 01/05/2015] aspirin 325 mg Oral Daily with breakfast cholecalciferol 2,000 Units Oral Daily ciprofloxacin 500 mg Oral BIDQ co-enzyme Q-10 100 mg Oral Daily denture cleanser 1 tablet Does not apply Daily doxycycline 100 mg Oral 2 times per day insulin aspart 0-3 Units Subcutaneous Nightly insulin aspart 0-6 Units Subcutaneous TID AC metoprolol 12.5 mg Oral BID multivitamin with minerals 1 tablet Oral Daily with breakfast pantoprazole 40 mg Oral QAM AC Continuous Infusions dextrose PRN Medications benzocaine-menthol, dextrose, dextrose, dextrose, glucagon, glucagon, magnesium sulfate O R magnesium sulfate OR magnesium sulfate OR magnesium sulfate, ondansetron OR ondansetron, phosphorus OR sodium phosphate IVPB 10 mmol OR sodium phosphate IVPB 20 mmol, polyethylene glycol, potassium chloride OR potassium chloride OR potassium ch loride OBJECTIVE Vital Signs: BP 125/69 | Pulse 78 | Temp(Src) 98.3 F (36.8 C) (Oral) | Resp 16 | Ht 1.651 m (5' 5") | Wt 61.598 kg (135 lb 12.8 oz) | BMI 22.60 kg/m2 | SpO2 96% | ? No Patient Vitals for the past 24 hrs: BP Temp Temp src Pulse Resp SpO2 01/04/15 1113 125/69 mmHg 98.3 F (36.8 C) Oral 78 16 96 % 05/07/15 0717 143/86 mmHg 97.9 F (36.6 C) Oral 82 16 94 % 01/04/15 0400 99/55 mmHg 98 F (36.7 C) Oral 81 18 97 % 01/03/15 2314 105/59 mmHg 98.5 F (36.9 C) Oral 84 18 94 % 01/03/152006 108/56 mmHg 98.2 F (36.8 C) Oral 98 18 91 % 01/03/15 1622 100/60 mmHg 98.6 F (37 C) Oral 96 20 91 % Intake/Output Summary (Last 24 hours) at 01/04/15 1444 Last data filed at 01/04/15 1348 Gross per 24 hour Intake 1010 ml Output 1250 ml Net -240 ml Physical Exam: Constitutional: Alert and oriented to person, place, and time. HEENT: Neck supple, no JVD, non icteric sclera. Right IJ present Cardiovascular: Normal rate, regular rhythm, normal heart sounds with S1 and S2, distant heart sounds Pulmonary/Chest: Effort normal and breath sounds decreased bilaterally. Bibasilar rales pr esent Abdominal: Soft. Bowel sounds are normal. exhibits no distension and no mass. There is no tenderness. There is no rebound and no guarding. Extremeties/Musculoskeletal: Normal range of motion.exhibits no tenderness. exhibits no ed andrew. Neurological: Alert and oriented to person, place, and time. Skin: Skin is warm and dry. Psychiatric: Has a normal mood and affect. DATA Recent Labs Lab 01/04/1541101/03/1540701/02/153 WBC 9.04 12.44* 11.87* RBC 2.93* 2.94* 3.11* HGB 7.8* 7.8* 8.1* HCT 23.7* 23.7* 24.7* MCV 81.0 80.6 79.3* MCH 26.8* 26.5* 26.1* MCHC 33.1 32.8 32.9 RDW 39.4 38.5 38.1 PLT 65* 56* 56* MPV 9.0 9.2 8.8 DIFFTYPE MANUAL MANUAL MANUAL Recent Labs Lab 01/04/1541101/03/15204401/03/158 01/02/15 034 NA 140 -- 139 132* K 3.3* 3.1* 2.9* 4.4 CL 105 -- 100 96* CO2 29 -- 30 28 BUN 19 -- 27* 27* CREATININE 1.17* -- 1.51* 1.97* PROT 5.4* -- 5.8* 5.5* BILITOT 1.5 -- 2.0* 2.6* ALT 167* -- 209* 239* AST 115* -- 187* 308* GLUF 95 -- 78 138* Recent Labs Lab 01/04/15 1050 01/04/15 0412 01/03/15 0408 01/01/15 1808 12/31/14 1622 12/31/14 0633 12/31/14 0046 CKTOTAL -- 434* 908* -- 2897* < > 4956* 6104* 6732* TROPONINI 4.53* 6.01* 5.86* < > 19.3* < > 7.52* 0.121* 0.178* CKMBINDEX -- -- -- -- -- -- 0.7 0.6 0.6 < > = values in this interval not displayed. Recent Labs Lab 01/04/1541101/03/15204401/03/15407 PHOS 2.9 1.8* 1.3* Recent Labs Lab 01/04/15 04101/03/15 0408 01/02/15 034 MG 1.8 2.2 2.0 Invalid input(s): ABG No results for input(s): CALCIUM in the last 168 hours. Recent Labs Lab 01/02/15 03401/01/15200001/01/15 1349 12/31/14 1829 12/30/14 2220 APTT 48* 53* 56* < > 58* 37* INR -- -- -- -- 1.7 1.3 < > = values in this interval not displayed. PROBLEM LIST Principal Problem: Sepsis(995.91) Active Problems: Rhabdomyolysis BERTIN (acute kidney injury) STEMI (ST elevation myocardial infarction) Anemia, unspecified Thrombocytopenia, unspecified Elevated liver enzymes ASSESSMENT & PLAN 1. Sepsis resolved secondary to gastroenteritis and pneumonia. . We will continue ciprof loxacin and doxycycline per 's recommendations. Patient remains afebrile. White cou nt is within normal limits. Cultures remain negative 2. Acute renal insufficiency creatinine is trending down and we will continue to monitor. 3 ST elevation UT we will continue aspirin .Troponin is trending down. Outpatient follow- up per . Blood pressure has improved today so we will start her on low-dose beta blo cker. We will hold off starting HARSHA inhibitor As her creatinine is still elevated. Will h old off starting lipid-lowering therapy as patient has elevated LFTs. 4. Diabetes blood sugars controlled on sliding scale insulin 5. DVT prophylaxis will only use mechanical agents as patient has thrombocytopenia 6. Elevated LFTs probably secondary to the septic shock .AST ALT are coming down , will co ntinue to monitor 7. Rhabdomyolysis CPK is trending down 8. Thrombocytopenia secondary to severe sepsis we will monitor and will hold all anticoagu lation. Platelet counts remain stable 9. Normocytic normochromic anemia we will monitor hemoglobin closely and transfuse if need ed 10. Hypokalemia will replenish 11.Bilateral lower lobe aspiration pneumonia. Continue antibiotics The plan has explained in detail to the patient and patient's , all questions were answered.All data was reviewed. Disposition: Pending course Code Status: Full Code Diane Nichols MD 01/04/2015 2:44 PM This entry has been created using [employer] Speech Recognition software and [employer] The entry has been reviewed and there may still exist sound alike word errors. Giorgi Reyes MD - 01/04/2015 1:29 PM PDT Progress Notes by Giorgi Javier MD at 01/04/15 1323 Author: Giorgi Javier MD Service: (none) Author Type: Physician Filed: 01/04/15 1580 Date of Service: 01/04/15 1329 Status: Signed Planning Assistant: Giorgi Javier MD (Physician) rec op cardiology fu, unless pt has cardiac symptoms while still in hospital. If so, then f urther in-pt testing will be appropriate. onversion Transacti on, Provider Unknown - 01/04/2015 11:03 AM PDTFormatting of this note might be different fro m the original. Therapy Progress Note by Alicia Tran PT at 01/04/15 1103 Author: Alicia Tran PT Service: (none) Author Type: Physical Therapist Filed: 01/04/15 1103 Date of Service: 01/04/151102 Status: Signed Planning Assistant: Alicia Tran PT (Physical Therapist) 01/04/15 1000 PT Last Visit PT Received On 01/04/15 Reason for Treatment Other (comment) (STEMI) Requires PT Follow Up No Follow up PT Only? No Assistance Required 1 person Other Comments Comments Pt moving appropriately w/use of FWW and able to have assist to move FWW up/down e ntry steps.Pt safe on steps and appropriate for amb in toth w/SO and use of FWW. Cognition Overall Cognitive Status WFL Orientation Level Oriented Bed Mobility Supine to Sit Independent Scooting Independent Transfers Sit to/from Stand Independent (from bed; to/from toilet) Mobility Ambulation Assistance Supervision;Verbal instruction Maximal Ambulation Distance (feet) 160 Total Ambulation Distance (feet) 160 (pt left ambulating halls w/SO) Pattern Alternating;Decreased andrea Assistive Device Walker front wheeled Stairs Assistance Standby assist;Verbal instruction Number of Stairs 6 Number of stairs limited by? (IV pole attached) Stair Management Technique [id number];Rail on right ascending Balance Balance (appropriate balance throughout eval using FWW) Activity Tolerance Activity Tolerance Patient tolerated treatment without report of fatigue Plan Treatment/Interventions Discharge skilled PT services Progress Reached highest level of independence with therapy Recommendation Recommendations Prior Setting Equipment Recommended Walker front wheeled PT Ready for Discharge Yes Recommendation Comments Pt safe to return home w/assist from spouse. onver ousmane Transaction, Provider Unknown - 01/04/2015 10:48 AM PDT Progress Notes by Sesar Duggan RPH at 01/04/15 1048 Author: Sesar Duggan RPH Service: Pharmacy Author Type: Pharmacist Filed: 01/04/158 Date of Service: 01/04/15 104 Status: Signed Planning Assistant: Sesar Duggan RPH (Pharmacist) Estimated Creatinine Clearance: 41.4 mL/min (by C-G formula based on Cr of 1.17). -adjusted Cipro from 400mg q24hr to q12h onver ousamne Transaction, Provider Unknown - 01/04/2015 9:14 AM PDT Progress Notes by Tracy Nuñez RPH at 01/04/15913 Author: Tracy Nuñez RPH Service: Pharmacy Author Type: Pharmacist Filed: 01/04/15914 Date of Service: 01/04/15913 Status: Signed Planning Assistant: Tracy Nuñez RPH (Pharmacist) Antimicrobial Stewardship Team Note IV to PO Antimicrobial Conversion Recommendation Patient: Pastora Trejo Admission Date: [id number] Current Antimicrobial Medications: Anti-infectives Start Dose/Rate Route Frequency Ordered Stop 01/01/15 0100 ciprofloxacin (CIPRO) IVPB 400 mg Ordering Provider: Adonay Sesay MD 400 mg 200 mL/hr over 60 Minutes Intravenous Every 24 Hours 12/31/14 0756 12/31/14 0030 doxycycline (VIBRAMYCIN) 100 mg in dextrose 5 % 250 mL IVPB Ordering Provider: Adonay Sesay MD 100 mg 250 mL/hr over 60 Minutes Intravenous Every 12 Hours 12/31/14 0002 Current Indication: Treatment Indication: Other (Comment) Specifiy Indication: Sepsis Assessment/Recommendation: Stewardship Recommendation Type: Parenteral to oral conversion Recommendation: Per Dr. Solitario note, suggest changing to oral therapy for ciprofloxacin and doxycyline Ciprofloxacin 500 mg po Bid Doxycycline 100 mg po Bid (Stewardship Recommendation Review Status: Pending MD Evaluation) Submitted by: Tracy Nuñez RPH Disclaimer: The recommendations from the Antibiotic Stewardship Program are derived from a review of the medical records and not a history and/or physical. The recommendations are n ot a substitute for either clinical judgement or an infectious disease consultation and are not binding. Clifford Blair DO - 01/04/2015 8:02 AM PDTFormatting of this note might be different from the gabbi ginal. Progress Notes by Clifford Quick DO at 01/04/15801 Author: Clifford Quick DO Service: (none) Author Type: Physician Filed: 01/04/1546 Date of Service: 01/04/15801 Status: Signed Planning Assistant: Clifford Quick DO (Physician) [facility] Service: Infectious Disease Progress Note Hospital Day: LOS: 5 days Post-Op Day: * No surgery found * SUBJECTIVE Patient Summary: 69 y.o. female with no significant past medical history, no chronic illnesses, known to get dehydrated easily due to small body habitus who was in her usual [facility] and recently attended a fitness class. Following that, the patient had reporte d some low back pain and thought that she might have strained a muscle. 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 Yesterday the patient started having nausea, vomiting, diar nelson and fever and was taken to the emergency department at [facility]. She had mild leukopenia there and low-grade fever. She was given cefepime and vancomycin and transfe rred to the ICU here for further management. Labs on arrival showed worsening rhabdomyolysis , renal failure, pancytopenia. She has been started on cefepime doxycycline and Cipro. She r emains on doxycycline and Cipro at this time, clinically improving, all workup negative incl uding stool cultures. Brucella and Q fever antibodies pending. CC: diarrheal illness, severe sepsis Chart reviewed: No new events. Subjective The patient was able to eat better yesterday. She denies any nausea or vomiting this mornin g. No more diarrhea. No abdominal pain or cramps. She is feeling much better overall. ROS No fevers, chills or sweats. No diarrhea. No rashes or pruritis. Scheduled Medications aspirin 325 mg Per OG Tube Daily with breakfast cholecalciferol 2,000 Units Oral Daily ciprofloxacin 400 mg Intravenous Q24H co-enzyme Q-10 100 mg Oral Daily denture cleanser 1 tablet Does not apply Daily doxycycline (VIBRAMYCIN) IVPB 100 mg Intravenous Q12H insulin aspart 0-3 Units Subcutaneous Nightly insulin aspart 0-6 Units Subcutaneous TID AC multivitamin with minerals 1 tablet Oral Daily with breakfast pantoprazole 40 mg Oral QAM AC pneumococcal 23-valent vaccine 0.5 mL Intramuscular Once Immunization Continuous Infusions dextrose PRN Medications benzocaine-menthol, dextrose, dextrose, dextrose, glucagon, glucagon, magnesium sulfate O R magnesium sulfate OR magnesium sulfate OR magnesium sulfate, ondansetron OR ondansetron, phosphorus OR sodium phosphate IVPB 10 mmol OR sodium phosphate IVPB 20 mmol, polyethylene glycol, potassium chloride OR potassium chloride OR potassium ch loride OBJECTIVE Vital Signs: BP 143/86 | Pulse 82 | Temp(Src) 97.9 F (36.6 C) (Oral) | Resp 16 | Ht 1.651 m (5' 5") | Wt 61.598 kg (135 lb 12.8 oz) | BMI 22.60 kg/m2 | SpO2 94% | ? No Temp (24hrs), Av.9 F (36.6 C), Min:96.8 F (36 C), Max:98.6 F (37 C) Exam: Const: Vitals reviewed. No acute distress Skin: No rashes, no edema Right IJ triple-lumen catheter site unremarkable. ENT: No thrush. Lungs: CTAB, no rales or wheezes Heart: RRR, no murmur Abd: soft, NT, + bowel sounds DATA CBC: Lab Results Component Value Date WBC 9.04 01/04/2015 RBC 2.93* 01/04/2015 HGB 7.8* 01/04/2015 HCT 23.7* 01/04/2015 MCV 81.0 01/04/2015 MCH 26.8* 01/04/2015 MCHC 33.1 01/04/2015 RDW 39.4 01/04/2015 PLT 65* 01/04/2015 MPV 9.0 01/04/2015 DIFFTYPE MANUAL 01/04/2015 CMP: Lab Results Component Value Date NA 140 01/04/2015 K 3.3* 01/04/2015 CL 105 01/04/2015 CO2 29 01/04/2015 ANIONGAP 10 01/04/2015 GLUF 95 01/04/2015 BUN 19 01/04/2015 CREATININE 1.17* 01/04/2015 BCR 17 01/04/2015 CA 8.1* 01/04/2015 PROT 5.4* 01/04/2015 ALB 2.7* 01/04/2015 BILITOT 1.5 01/04/2015 ALP 114 01/04/2015 AST 115* 01/04/2015 ALT 167* 01/04/2015 EGFR 49* 01/04/2015 Microbiology: Stool cultures pending. Blood cultures negative so far. Serology for Brucella and Q fever pending. 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 Differen tial diagnosis includes gastroenteritis secondary to cattle associated scottie such as Escheri alana coli, although foodborne illness is also possible. Consideration was also given to Q fe kun and Brucella. Cefepime can be discontinued. Continue Cipro and doxycycline, both of whic h can be given orally at this point. Fever, unspecified (12/30/2014) Resolved. We will continue to monitor. Rhabdomyolysis (12/30/2014) Suspect secondary to severe sepsis. BERTIN (acute kidney injury) (12/30/2014) Improving. Could be suggestive of Escherichia coli 0157 syndrome, versus septic shock. Im proving, will continue to monitor. Disposition: Anticipate discharge in 24 hours if she continues to do well on oral Cipro and doxycycline. Dr. Harper will assume Infectious Diseases followup on Thursday01/05/15. Code Status: Full Code Clifford Quick DO 01/04/2015 onversion Transaction , Provider Unknown - 01/04/2015 5:25 AM PDT Nurse Progress Note by Deb Ortiz RN at 01/04/15524 Author: Deb Ortiz RN Service: (none) Author Type: Registered Nurse Filed: 01/04/1528 Date of Service: 01/04/15524 Status: Signed Planning Assistant: Deb Ortiz RN (Registered Nurse) Troponin at 0412 was 6.01, elevated from yesterday's 5.86 but down significantly from 5/4 l evel of 49.2. Pt asymptomatic, no active chest pain, not on telemetry. Dr Barker notified, w ill draw another troponin level in 4 hours and continue to monitor. Deb Ortiz RN, 01/04/2015 5:26 AM onver ousmane Transaction, Provider Unknown - 01/03/2015 7:54 PM PDT Nurse Progress Note by Mirella Campos RN at 01/03/151953 Author: Mirella Campos RN Service: (none) Author Type: Registered Nurse Filed: 01/03/151958 Date of Service: 01/03/151953 Status: Signed Planning Assistant: Mirella Campos RN (Registered Nurse) Patient has been doing well today. She has been up ambulating in the hallway X 3 with FWW a nd SBA. She ate approximately 75% of her lunch and dinner tray. She denied any nausea or dis comfort. She was able to shower independently with setup. She continues be weak but she is i mproving throughout the day. onver ousmane Transaction, Provider Unknown - 01/03/2015 4:43 PM PDT Progress Notes by Noemi Olivares RD at 01/03/151642 Author: Noemi Olivares RD Service: (none) Author Type: Registered Dietitian Filed: 01/03/151642 Date of Service: 01/03/151642 Status: Signed Planning Assistant: Noemi Olivares RD (Registered Dietitian) 01/03/15 1634 Subjective Timepoint Follow up (Consult - poor po; H risk follow-up) Pt c/o Family reports pt has been eating well. Pt reports she is eating 'like a horse'. R eports getting sick this morning, but thinks it was due to the cranberry juice. Diet Experience Self-selected diet(s) followed Pt reports she typically eats 3 meals daily. Family thinks p t eats small meals typically. Pt reports she has oatmeal, egg, toast and 1/2 grapefruit for breakfast. Lunch is varied and dinner is substantial. Food Intake Amount of Food Family reports pt is eating more than she does at home. Ate eggs and toast for breakfast. Eating a sandwich for lunch currently. Type of Food / Meals Cardiac, diabetic 2200 kcal Nutrition-Focused Physical Findings Digestive System (Mouth to Rectum) Reports throat was a little sore from intubation, but be tter now. Anthropometrics Weight change Reports wt has been stable. Biochemical data, medical tests, and procedures reviewed Biochemical data, medical tests, and procedures reviewed Better BG control. BUN now WNL, C r trending down. Recommendations Recommended energy needs Monitor po intake. Supplements available if indicated. Nutritional Risk Nutritional risk Low / moderate Follow up date 01/09/15 Diane Azevedo MD - 01/03/2015 1:02 PM PDTFormatting of this note might be different from t he original. Progress Notes by Diane Nichols MD at 01/03/15 1302 Author: Diane Nichols MD Service: (none) Author Type: Physician Filed: 01/03/15 6030 Date of Service: 01/03/15 1302 Status: Signed Planning Assistant: Diane Nichols MD (Physician) [facility] Service: Hospitalist Progress Note Hospital Day: LOS: 4 days SUBJECTIVE Patient Summary: 69-year-old female with history of Diabetes admitted to the intensi ve care unit with septic shock. Patient also had a ST elevation UT and cardiology consult w as obtained patient was treated with heparin and aspirin. Patient also had acute respirator y failure which required intubation. The patient also had bilateral pneumonia on CT scan an d infectious disease is consulted. She also had acute renal insufficiency secondary to dehy dration and rhabdomyolysis. Septic shock was thought to be secondary to acute gastroenterit is and aspiration pneumonia. Events Overnight: Patient had nausea this morning which has resolved, denies any ches t pain, shortness of breath or dizziness. Patient states that she feels fatigued. Patient denies diarrhea Scheduled Medications aspirin 325 mg Per OG Tube Daily with breakfast cholecalciferol 2,000 Units Oral Daily ciprofloxacin 400 mg Intravenous Q24H co-enzyme Q-10 100 mg Oral Daily doxycycline (VIBRAMYCIN) IVPB 100 mg Intravenous Q12H insulin aspart 0-3 Units Subcutaneous Nightly insulin aspart 0-6 Units Subcutaneous TID AC multivitamin with minerals 1 tablet Oral Daily with breakfast pantoprazole 40 mg Oral QAM AC pneumococcal 23-valent vaccine 0.5 mL Intramuscular Once Immunization Continuous Infusions dextrose PRN Medications dextrose, dextrose, dextrose, glucagon, glucagon, magnesium sulfate OR magnesium sulfat e OR magnesium sulfate OR magnesium sulfate, ondansetron OR ondansetron, phospho jossy OR sodium phosphate IVPB 10 mmol OR sodium phosphate IVPB 20 mmol, polyethylene glycol, potassium chloride OR potassium chloride OR potassium chloride OBJECTIVE Vital Signs: BP 95/56 | Pulse 90 | Temp(Src) 96.8 F (36 C) (Axillary) | Resp 16 | Ht 1.651 m (5' 5") | Wt 61.598 kg (135 lb 12.8 oz) | BMI 22.60 kg/m2 | SpO2 91% | ? No Patient Vitals for the past 24 hrs: BP Temp Temp src Pulse Resp SpO2 Weight 01/03/15 1127 95/56 mmHg 96.8 F (36 C) Axillary 90 16 91 % - 01/03/15 0823 105/66 mmHg 97.2 F (36.2 C) Oral 81 16 88 % - 01/03/15 0409 104/65 mmHg - - - - - - 01/03/15 0400 86/52 mmHg 98 F (36.7 C) Oral 95 20 92 % 61.598 kg (135 lb 12.8 oz) 01/03/15 0015 99/66 mmHg - - - - - - 01/02/15 2313 84/50 mmHg 97.6 F (36.4 C) Oral 95 20 94 % - 01/02/15 1938 92/56 mmHg 98 F (36.7 C) Oral 93 22 93 % - 01/02/15 1500 98/71 mmHg 98.1 F (36.7 C) Oral 89 20 97 % - Intake/Output Summary (Last 24 hours) at 01/03/15 1303 Last data filed at 01/03/15 0402 Gross per 24 hour Intake 857.52 ml Output 700 ml Net 157.52 ml Physical Exam: Constitutional: Alert and oriented to person, place, and time. HEENT: Neck supple, no JVD, non icteric sclera. Right IJ present Cardiovascular: Normal rate, regular rhythm, normal heart sounds with S1 and S2, distant heart sounds Pulmonary/Chest: Effort normal and breath sounds decreased bilaterally. Bibasilar rales pr esent Abdominal: Soft. Bowel sounds are normal. exhibits no distension and no mass. There is no tenderness. There is no rebound and no guarding. Extremeties/Musculoskeletal: Normal range of motion.exhibits no tenderness. exhibits no ed andrew. Neurological: Alert and oriented to person, place, and time. Skin: Skin is warm and dry. Psychiatric: Has a normal mood and affect. DATA Recent Labs Lab 01/03/1540701/02/15 03401/01/15 0440 WBC 12.44* 11.87* 9.24 RBC 2.94* 3.11* 3.37* HGB 7.8* 8.1* 9.0* HCT 23.7* 24.7* 26.5* MCV 80.6 79.3* 78.6* MCH 26.5* 26.1* 26.8* MCHC 32.8 32.9 34.2 RDW 38.5 38.1 36.8* PLT 56* 56* 63* MPV 9.2 8.8 7.9 DIFFTYPE MANUAL MANUAL MANUAL Recent Labs Lab 01/03/15 0408 01/02/15 0343 01/01/15 1348 01/01/15 0441 01/01/15 0440 NA 139 132* -- -- 128* K 2.9* 4.4 3.4* -- 3.1* CL 100 96* -- -- 94* CO2 30 28 -- -- 23 BUN 27* 27* -- -- 24 CREATININE 1.51* 1.97* -- -- 1.73* PROT 5.8* 5.5* -- 5.0* -- BILITOT 2.0* 2.6* -- 2.7* -- ALT 209* 239* -- 226* -- AST 187* 308* -- 423* -- GLUF 78 138* -- -- 186* Recent Labs Lab 01/03/15 0408 01/02/15 0343 01/01/15 1808 01/01/15 1348 12/31/14 1622 12/31/14 0633 12/31/14 0046 CKTOTAL 908* -- 2897* 3441* < > 4956* 6104* 6732* TROPONINI -- 9.29* 19.3* 30.7* < > 7.52* 0.121* 0.178* CKMBINDEX -- -- -- -- -- 0.7 0.6 0.6 < > = values in this interval not displayed. Recent Labs Lab 01/03/15 0408 01/02/15 03412/31/14 0633 PHOS 1.3* 2.7 2.3 Recent Labs Lab 01/03/15 0408 01/02/15 03412/31/14 1933 MG 2.2 2.0 2.8* Invalid input(s): ABG No results for input(s): CALCIUM in the last 168 hours. Recent Labs Lab 01/02/15 0344 01/01/15200001/01/15 1349 12/31/14 1829 12/30/14 2220 APTT 48* 53* 56* < > 58* 37* INR -- -- -- -- 1.7 1.3 < > = values in this interval not displayed. Ct Chest Abdomen Pelvis Without Contrast 12/31/2014 1. Large bilateral lower lobe consolidations and small effusions, suspicious fo r pneumonia. 2. Pancolitis. C. difficile colitis is possible. 3. NG tube tip in the transver se duodenum. [facility] Electronically signed by Vasyl Silver MD on Dec 31 2014 4:59AM Referring Provider Line: [phone] ID: [id number] Echo Cardiac Adult Complete 01/01/2015 1. Sinus rhythm. 2. A 2-dimensional transthoracic echocardiogram with m-mode, sp ectral and color flow Doppler was perfomed. 3. This was a technically difficult study with s uboptimal apical views. 4. Overall left ventricular systolic function is low-normal with, an EF between 50 - 55 %. 5. The left ventricle cavity size is normal. 6. Left ventricular wall thickness is normal. 7. The diastolic filling pattern indicates impaired relaxation consist ent with mild dysfunction (Grade I). 8. The right ventricle is normal in size. 9. The left a trial size is normal. 10. The right atrial size is normal. 11. The aortic valve is trileafle t and appears structurally normal. 12. There is no evidence of aortic regurgitation. 13. The re is no evidence of aortic stenosis. 14. The mitral valve is normal. 15. There is trace lotus ral regurgitation. 16. Mild mitral annular calcification present. 17. The tricuspid valve ap pears structurally normal. 18. Mild tricuspid regurgitation present. 19. There is no evidenc e of pulmonary hypertension. 20. The right ventricular systolic pressure (pulmonary artery s ystolic pressure), as measured by Doppler, is 29.00mmHg. 21. The pulmonic valve was not well visualized. 22. Trace pulmonic regurgitation 23. There is no pericardial effusion. 24. The IVC is normal size (1.5-2.5cm) and collapses <50% with sniff, consistent with central venous pressures of 10-15mmHg. PROBLEM LIST Principal Problem: Sepsis(995.91) Active Problems: Rhabdomyolysis BERTIN (acute kidney injury) STEMI (ST elevation myocardial infarction) Anemia, unspecified Thrombocytopenia, unspecified Elevated liver enzymes ASSESSMENT & PLAN 1. Sepsis secondary to gastroenteritis and pneumonia. Septic shock has resolved. We will continue ciprofloxacin and doxycycline per 's recommendations. White count has gone up and patient remains afebrile. We will monitor. Cultures remain negative 2. Acute renal insufficiency creatinine is trending down and we will continue to monitor. 3 ST elevation UT we will continue aspirin .Blood pressure remains borderline so will not start patient on HARSHA inhibitor or beta jeremie Echocardiogram results noted. Will hold off starting lipid-lowering therapy as patient has elevated LFTs. Troponin is trending down 4. Diabetes blood sugars controlled on sliding scale insulin 5. DVT prophylaxis will only use mechanical agents as patient has thrombocytopenia 6. Elevated LFTs probably secondary to the septic shock .AST ALT are coming down , will co ntinue to monitor 7. Rhabdomyolysis CPK is trending down 8. Thrombocytopenia secondary to severe sepsis we will monitor and will hold all anticoagu lation. Platelet counts remain stable 9. Normocytic normochromic anemia we will monitor hemoglobin closely and transfuse if need ed 10. Hypokalemia/ hyperphosphatemia will replenish 11.Bilateral lower lobe aspiration pneumonia. Continue antibiotics The plan has explained in detail to the patient and patient's , all questions were answered.All data was reviewed. Disposition: Pending course Code Status: Full Code Diane Nichols MD 01/03/2015 1:03 PM This entry has been created using [employer] Speech Recognition software and [employer] The entry has been reviewed and there may still exist sound alike word errors. ork, Xin Amador O - 01/03/2015 7:06 AM PDT Progress Notes by Clifford Quick DO at 01/03/15705 Author: Clifford Quick DO Service: (none) Author Type: Physician Filed: 01/03/15 0743 Date of Service: 01/03/15705 Status: Signed Planning Assistant: Clifford Quick DO (Physician) [facility] Service: Infectious Disease Progress Note Hospital Day: LOS: 4 days Post-Op Day: * No surgery found * SUBJECTIVE Patient Summary: 69 y.o. female with no significant past medical history, no chronic illnesses, known to get dehydrated easily due to small body habitus who was in her usual [facility] and recently attended a fitness class. Following that, the patient had reporte d some low back pain and thought that she might have strained a muscle. 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 Yesterday the patient started having nausea, vomiting, diar nelson and fever and was taken to the emergency department at [facility]. She had mild leukopenia there and low-grade fever. She was given cefepime and vancomycin and transfe rred to the ICU here for further management. Labs on arrival showed worsening rhabdomyolysis , renal failure, pancytopenia. She has been started on cefepime doxycycline and Cipro. CC: diarrheal illness, severe sepsis Chart reviewed: No new events. Subjective The patient has had some nausea this morning after having milk on her cereal, notes that sh e is always lactose intolerant. She has otherwise been feeling better. She denies abdominal pain and cramps. No diarrhea. ROS No fevers, chills or sweats. No diarrhea. No rashes or pruritis. Scheduled Medications aspirin 325 mg Per OG Tube Daily with breakfast cefepime 1 g Intravenous Q12H cholecalciferol 2,000 Units Oral Daily ciprofloxacin 400 mg Intravenous Q24H co-enzyme Q-10 100 mg Oral Daily doxycycline (VIBRAMYCIN) IVPB 100 mg Intravenous Q12H insulin aspart 0-15 Units Subcutaneous TID AC insulin aspart 0-15 Units Subcutaneous Nightly multivitamin with minerals 1 tablet Oral Daily with breakfast pantoprazole 40 mg Oral QAM AC pneumococcal 23-valent vaccine 0.5 mL Intramuscular Once Immunization Continuous Infusions dextrose PRN Medications dextrose, dextrose, dextrose, glucagon, glucagon, magnesium sulfate OR magnesium sulfat e OR magnesium sulfate OR magnesium sulfate, ondansetron OR ondansetron, phospho jossy OR sodium phosphate IVPB 10 mmol OR sodium phosphate IVPB 20 mmol, polyethylene glycol, potassium chloride OR potassium chloride OR potassium chloride OBJECTIVE Vital Signs: BP 104/65 | Pulse 95 | Temp(Src) 98 F (36.7 C) (Oral) | Resp 20 | Ht 1.651 m (5' 5") | Wt 61.598 kg (135 lb 12.8 oz) | BMI 22.60 kg/m2 | SpO2 92% | ? No Temp (24hrs), Av.1 F (36.7 C), Min:97.6 F (36.4 C), Max:98.5 F (36.9 C) Exam: Const: Vitals reviewed. No acute distress Skin: No rashes, no edema Right IJ triple-lumen catheter site unremarkable. ENT: No thrush. Lungs: CTAB, no rales or wheezes Heart: RRR, no murmur Abd: soft, NT, + bowel sounds DATA CBC: Lab Results Component Value Date WBC 12.44* 01/03/2015 RBC 2.94* 01/03/2015 HGB 7.8* 01/03/2015 HCT 23.7* 01/03/2015 MCV 80.6 01/03/2015 MCH 26.5* 01/03/2015 MCHC 32.8 01/03/2015 RDW 38.5 01/03/2015 PLT 56* 01/03/2015 MPV 9.2 01/03/2015 DIFFTYPE MANUAL 01/03/2015 CMP: Lab Results Component Value Date NA 139 01/03/2015 K 2.9* 01/03/2015 CL 100 01/03/2015 CO2 30 01/03/2015 ANIONGAP 12 01/03/2015 GLUF 78 01/03/2015 BUN 27* 01/03/2015 CREATININE 1.51* 01/03/2015 BCR 18 01/03/2015 CA 8.5 01/03/2015 PROT 5.8* 01/03/2015 ALB 2.9* 01/03/2015 BILITOT 2.0* 01/03/2015 ALP 125* 01/03/2015 AST 187* 01/03/2015 ALT 209* 01/03/2015 EGFR 36* 01/03/2015 Microbiology: Stool cultures pending. Blood cultures negative so far. PROBLEM LIST Active Problems: Rhabdomyolysis BERTIN (acute kidney injury) STEMI (ST elevation myocardial infarction) Sepsis(995.91) Anemia, unspecified Thrombocytopenia, unspecified Elevated liver enzymes ASSESSMENT & PLAN Severe sepsis with septic shock (12/30/2014) The illnesses associated with severe diarrhea and recent exposure to young cattle. [place] dwyer diagnosis includes gastroenteritis secondary to cattle associated scottie such as Escheri alana coli, although foodborne illness is also possible. Consideration was also given to Q fe kun and Brucella. Cefepime can be discontinued. Continue Cipro and doxycycline, both of whic h can be given orally. I will hold off on switching 2 pills today due to the patient's nause a and vomiting this morning. Fever, unspecified (12/30/2014) Improving. We will continue to monitor. Rhabdomyolysis (12/30/2014) Suspect secondary to severe sepsis. BERTIN (acute kidney injury) (12/30/2014) Improving. Could be suggestive of Escherichia coli 0157 syndrome, versus septic shock. Im proving, will continue to monitor. Code Status: Full Code Clifford Quick DO 01/03/2015 onversion Transaction , Provider Unknown - 01/02/2015 6:12 PM PDT Case Management by AMOS Hyman at 01/02/151811 Author: AMOS Hyman Service: (none) Author Type: Cash Controller Filed: 01/02/151815 Date of Service: 01/02/151811 Status: Addendum Planning Assistant: AMOS Hyman (Cash Controller) Related Notes: Original Note by AMOS Hyman (Cash Controller) filed at 01/02/15181301/02/151807 Discharge Planning Evaluation Admitting Diagnosis rhabdo Readmission No Living Arrangements Alone Support Systems Children;Family members;Friends/neighbors Type of Residence Private residence House type House 2 story Steps to enter 6 (w/ hand rail) Independent with ADL's Yes Independent with Mobility Yes Home Care Services No Caregiver after Discharge Yes Caregiver Name several family members and family happily able to assist Mental Status Oriented (Son answered questions d/t pt's pain associated with ET tube.) Prior functional status independent, very active (does tonya chi daily), drives, excelled soc ial support. Power of Charm Filter Operator Helper Yes Power of Charm Filter Operator Helper Name alex Louis Power of Charm Filter Operator Helper Anticipated Discharge Plan Post Acute Care Needs None at this time (PT note not available - RN states pt walked with PT. Family reports no needs.) Plan communicated to patient/family Yes Resources Financial concerns No Transportation issues No (friend will transport w/ a vehicle that pt is able to get into easily) Patient/Family concerns [place] [facility] [place], [place] *Correction to flow sheet - PT note is available and indicates likely return to PLOF. Met with pt, son and friend to discuss discharge planning, Pt is a 69 y.o., female Patient's PCP is: JUAN DONG Pt is not engaged in any o/p medical services; she is not on home O2; she does not use bipa p. Pt does see her PCP and does not see any other specialists routinely. Pt's Son reports that pt is typically very active and in good health - they are very surprised by her current illness. Patient's insurance: "[place]" Coverage concerns: Medication coverage/concerns: Community resources utilized / needed: n/a Assistance in transportation: family, friends available to assist prn Identification of any specific education / training: n/a Barriers to Discharge / Alternative housing needed: none identified at this time Anticipated DCP: home w/ friend to transport, family and friends to assist Pamela Drew onver ousmane Transaction, Provider Unknown - 01/02/2015 1:03 PM PDT Therapy Progress Note by Vasyl Vera PT at 01/02/15 1303 Author: Vasyl Vera PT Service: Physical Medicine and Rehab Author Type: Physical Therapist Filed: 01/02/15 1424 Date of Service: 01/02/15 1303 Status: Signed Planning Assistant: Vasyl Vera PT (Physical Therapist) 01/02/15 1303 PT Last Visit PT Received On 01/02/15 Reason for Treatment Other (comment) (STEMI) Requires PT Follow Up Awaiting tx order Follow up PT Only? 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) Cognition Overall Cognitive Status WFL Orientation Level Oriented Comments (lethargic) Assessment of Patient Status Assessment of Patient Status Decreased functional mobility;Decreased endurance Prognosis Should progress with skilled therapy intervention Safety Devices Safety Devices in Place (call button in reach, family in room) Activity Tolerance Endurance Fair Sitting Balance Sits without support for > 30 sec Plan Treatment/Interventions Gait training;Stair training;Assist d/c plannning PT Frequency Once per day;5-7x/wk Care Duration (# of days) 5 # of days Recommendation Recommendations Defer Recommendation Comments Pt was active and independent before hospitalization. She was able to walk with FWW 400ft on initial PT session. She will likely progress to PLOF through hospi dave course and be appropriate for return home. 01/02/15 1303 PT Last Visit PT Received On 01/02/15 Reason for Treatment Other (comment) (STEMI) Requires PT Follow Up Awaiting tx order Follow up PT Only? No Focus for Next Treatment (ambulation w/o AD) PT Eval/Reassessment Date 01/02/15 Assistance Required 1 person Other Comments Comments Pt is 69 yo F s/p Admission with Septic Shock and subsequent STEMI. She reports n o pain, but is very tired. She is independent with bed mobility, and requires CGA with STS a nd ambulation. Was able to walk 400ft w/ FWW w/o LOB or symptoms. Pt returned to bed after s ession and reported increase in fatigue. VS: 115/73, 90, 95% post: 134/81, 115, 93% Cognition Overall Cognitive Status WFL Orientation Level Oriented Comments (lethargic) Bed Mobility Supine to Sit Independent Sit to Supine Independent Scooting Independent Transfers Sit to/from Stand Modified independent;Standby assist Bed to/from Chair Modified independent;Standby assist Mobility Ambulation Assistance Standby assist (CGA) Maximal Ambulation Distance (feet) 400 Total Ambulation Distance (feet) 400 Distance limited by? Therapist/staff discretion;Patient's ability Pattern Alternating;Decreased andrea Assistive Device Walker front wheeled Activity Tolerance Activity Tolerance Patient limited by fatigue Nurse Made Aware RN Hallspot Devices Safety Devices in Place (call button in reach, family in room) Plan Treatment/Interventions Gait training;Stair training;Assist d/c plannning PT Frequency Once per day;5-7x/wk Care Duration (# of days) 5 # of days Recommendation Recommendations Defer Recommendation Comments Pt was active and independent before hospitalization. She was able to walk with FWW 400ft on initial PT session. She will likely progress to PLOF through hospi dave course and be appropriate for return home. Alicia Carrillo MD - 01/02/2015 7:41 AM PDTFormatting of this note might be different from t he original. Progress Notes by Alicia Gomez MD at 01/02/15740 Author: Alicia Gomez MD Service: Equipment Application Specialist Author Type: Physician Filed: 01/02/1510 Date of Service: 01/02/15740 Status: Signed Planning Assistant: Alicia Gomez MD (Physician) [facility] Service: Equipment Application Specialist Progress Note Pastora Trejo 69 y.o. Date of Admission: 12/30/2014 Requesting Physician: Dr Whitney [facility], [place] Indication for ICU Admission: Fever, Rhabdomyolysis and BERTIN History Obtained From: Son Allison CHIEF COMPLAINT: "My mom really got sick and dehydrated" HISTORY OF PRESENT ILLNESS The patient is a 69 y.o. female with significant past medical history easily getting dehydr ated when she gets sick, diabetes. She is actually in good health without chronic illnesses . 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 Latter she de veloped diarrhea and seemed to get dehydrated. She had several episodes of vomiting. She f elt a little better on Thursday12/29/14 but worse again on Thursday12/30/14 so went to the ED at [facility]. In ED she had a WBC of 11 K without a left shift but had a fever to 105 degrees Farenheit. She was cultured up and given Cefipime and Vanco IV. CXR and CT of the head were negative. She was given 5 liters of NS but by the time she got to [facility] she had gone into mild pulmonary edema dn was wheezing. CVP was 20 and she was given bronchodiloat ors and Lasix. CPK was 2452 and Myoglobin 5691, troponin was low and EKG without ishcimic c hanges. Her creatinine was 3.3 and BUN was 40, bicarb was 19 and ABG 7.4//. She was co nfused. She had a mild [place] but denied CP of abdominal pain. No blood in diarrhea the color of it was green. ICU TIME LINE: 12/30/14 [place] [facility] Admission with Septic Shock 12/31/14 STEMI 01/01/15 Extubated. Off pressors Overnight Events: Extubated and doing well. Off pressors. Still generally weak. Eating. C ontinues to have some loose stools PAST MEDICAL HISTORY No past medical history on file. PAST SURGICAL HISTORY No past surgical history on file. ALLERGIES Allergies Allergen Reactions Codeine Rash Serotonin Reuptake Inhibitors (Ssris) Anxiety and Rash MEDICATIONS PRIOR TO ADMISSION Prior to Admission medications Not on File FAMILY HISTORY OF SIGNIFICANCE No family history on file. SOCIAL HISTORY History Social History Marital Status: Spouse Name: N/A Number of Children: N/A Years of Education: N/A Occupational History Not on file. Social History Main Topics Smoking status: Never Smoker Smokeless tobacco: Not on file Alcohol Use: Not on file Drug Use: Not on file Sexual Activity: Not on file Other Topics Concern Not on file Social History Narrative No narrative on file PHYSICAL EXAM VITAL SIGNS Temp: [98.2 F (36.8 C)-99.9 F (37.7 C)] 99 F (37.2 C) Heart Rate: [86-126] 86 Resp: [12-55] 25 BP: (77-106)/(51-67) 91/62 mmHg Arterial Line BP: (88-173)/(53-137) 92/58 mmHg FiO2 : [30 %-40 %] 30 % CVP (mean): [12 mmHg-48 mmHg] 19 mmHg (01/02 0300) PA catheter wave form: [-] EXAM GEN: eyes closed but easily rouses NEURO: PERRLA, EOMI, no facial asymmetry, moves all extremities well HEENT: sclerae clear, icteric sclera, oral mmm, pink, no exudates NECK: supple, trachea midline, right IJ in place. HEART: RRR, S1/S2, no murmur, rub or gallop LUNGS: Equal expansion, crackles on the lower lung zones, no wheezing ABD: soft, nondistended, nontender to palpation, no masses, no hepatosplenomegaly EXTR: no edema, clubbing or cyanosis SKIN: warm, dry, no rash or mottling; no e/o skin breakdown over the occiput, scapulae, elb ows, sacrum or heels LINES/TUBES: Right IJ TLC, Bonner catheter DATA Recent Labs Lab 01/02/15 0343 01/01/15 0440 12/31/14 1752 WBC 11.87* 9.24 7.29 HGB 8.1* 9.0* 9.8* HCT 24.7* 26.5* 28.8* PLT 56* 63* 77* Recent Labs Lab 01/02/15 0343 01/01/15 0440 12/31/14 1933 12/31/14 0633 NA 132* -- 128* -- -- < > 128* K 4.4 < > 3.1* < > -- < > 2.6* CL 96* -- 94* -- -- < > 95* CO2 28 -- 23 -- -- < > 17* ANIONGAP 13 -- 14 -- -- < > 19 GLUF 138* -- 186* -- -- < > 346* BUN 27* -- 24 -- -- < > 28* CREATININE 1.97* -- 1.73* -- -- < > 2.07* BCR 14 -- 14 -- -- < > 13 CA 7.8* -- 7.6* -- -- < > 6.2* ALB 3.0* < > -- -- -- -- -- PROT 5.5* < > -- -- -- -- -- BILITOT 2.6* < > -- -- -- -- -- ALT 239* < > -- -- -- -- -- AST 308* < > -- -- -- -- -- EGFR 27* -- 31* -- -- < > 25* PHOS -- -- -- -- -- -- 2.3 MG -- -- -- -- 2.8* < > 1.3* < > = values in this interval not displayed. Recent Labs Lab 12/31/14 [address] Chest Abdomen Pelvis Without Contrast 12/31/2014 1. Large bilateral lower lobe consolidations and small effusions, suspicious fo r pneumonia. 2. Pancolitis. C. difficile colitis is possible. 3. NG tube tip in the transver se duodenum. RADIA Electronically signed by Vasyl Silver MD on Dec 31 2014 4:59AM Referring Provider Line: [phone] ID: [id number] Echo Cardiac Adult Complete 01/01/2015 1. Sinus rhythm. 2. A 2-dimensional transthoracic echocardiogram with m-mode, sp ectral and color flow Doppler was perfomed. 3. This was a technically difficult study with s uboptimal apical views. 4. Overall left ventricular systolic function is low-normal with, an EF between 50 - 55 %. 5. The left ventricle cavity size is normal. 6. Left ventricular wall thickness is normal. 7. The diastolic filling pattern indicates impaired relaxation consist ent with mild dysfunction (Grade I). 8. The right ventricle is normal in size. 9. The left a trial size is normal. 10. The right atrial size is normal. 11. The aortic valve is trileafle t and appears structurally normal. 12. There is no evidence of aortic regurgitation. 13. The re is no evidence of aortic stenosis. 14. The mitral valve is normal. 15. There is trace lotus ral regurgitation. 16. Mild mitral annular calcification present. 17. The tricuspid valve ap pears structurally normal. 18. Mild tricuspid regurgitation present. 19. There is no evidenc e of pulmonary hypertension. 20. The right ventricular systolic pressure (pulmonary artery s ystolic pressure), as measured by Doppler, is 29.00mmHg. 21. The pulmonic valve was not well visualized. 22. Trace pulmonic regurgitation 23. There is no pericardial effusion. 24. The IVC is normal size (1.5-2.5cm) and collapses <50% with sniff, consistent with central venous pressures of 10-15mmHg. PROBLEM LIST Principal Problem: Severe sepsis with septic shock Active Problems: Fever, unspecified Delirium Rhabdomyolysis BERTIN (acute kidney injury) Acute respiratory failure Metabolic acidosis STEMI (ST elevation myocardial infarction) ASSESSMENT & PLAN NEURO: Metabolic Encephalopathy: Resolved. LP done on admission with negative cultures. CV: Severe Sepsis with Shock: Related to dehydration from diarrhea and fever. A unifying diagnosis is still not clear. 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 She has been pancultures and put on broad spectrum antibioti cs to cover a variety of enteric pathogens and Q fever. Covered with Doxy, Cipro and Cefapi me, cultures here still negative will need to check with [facility]. Awaiting Q fever and Brucella serologies. Off vasopressors currently. STEMI: Lateral wall on EKG, ECHO pending and troponin peaked at 12, treated with hepari n and ASA. Appreciate Dr Zuniga input. Will add b blockers, Harsha Inhibitors and statins as she recovers. PULM: Acute Resp Failure: Resolved. Bilateral lower lobe PNA, likely from aspiration. Appropriately covered with antibiotics . GI/NUTRITION: Nutrition: Tolerating a diet Diarrhea: Stools studies thus far negative Transaminitis: Likely from ischemic hepatopathy from severe shock. Liver enzymes trendi ng down. RENAL/LYTES: BERTIN: Related to dehydration and rhabdomyolysis, will keep well hydrated. Rhabdomyolysis. CPK trending down with hydration. Off HCO3 gtt. ID: Acute Gastroenteritis with Septic Shock: Suspected to have had a severe gastroenteritis resulting in septic shock and aspiration pneumonia from her persistent vomiting. Awaiting o n stool CS, and serology for Q fever and Brucellosis. Appreciate Dr Quick's input. On cefepim e, ciprofloxacin, and doxycycline. HEME: Pancytopenia; This is resolved and may have been related to severe sepsis. Thrombocytopenia. May still be related to sepsis and bone marrow suppression. ENDO: DM. On metformin at home. Will continue with SSI given her acute renal injury. MUSC/SKIN: no Skin lesions PROPHYLAXIS: Stress ulcer prophylaxis: H2 jeremie DVT prophylaxis: SCD, was on heparin for 48 hours, and now off. Ambulate. Disposition: Will need physical therapy. May be able to transition to floor level of care. Handed off care to Dr Feliciano Rangel. Code Status: Full Code Primary Care Physician: JUAN DONG *Please bill 45 minutes of critical care time spent evaluating the patient, reviewing the d niecy and formulating a plan exclusive of all other procedures. Alicia Gomez MD 01/02/2015 7:41 AM Clifford Blair D O - 01/02/2015 6:36 AM PDT Progress Notes by Clifford Quick DO at 01/02/1536 Author: Clifford Quick DO Service: (none) Author Type: Physician Filed: 01/02/15 0651 Date of Service: 01/02/15635 Status: Signed Planning Assistant: Clifford Quick DO (Physician) [facility] Service: Infectious Disease Progress Note Hospital Day: LOS: 3 days Post-Op Day: * No surgery found * SUBJECTIVE Patient Summary: 69 y.o. female with no significant past medical history, no chronic illnesses, known to get dehydrated easily due to small body habitus who was in her usual [facility] and recently attended a fitness class. Following that, the patient had reporte d some low back pain and thought that she might have strained a muscle. 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 Yesterday the patient started having nausea, vomiting, diar nelson and fever and was taken to the emergency department at [facility]. She had mild leukopenia there and low-grade fever. She was given cefepime and vancomycin and transfe rred to the ICU here for further management. Labs on arrival showed worsening rhabdomyolysis , renal failure, pancytopenia. She has been started on cefepime doxycycline and Cipro. CC: diarrheal illness, severe sepsis Chart reviewed: No new events. Subjective The patient was extubated yesterday. She denies shortness of breath and cough. She has been taking sips of clear liquids and eating Jell-O, feels hungry to eat more. Denies abdominal pain. No bowel movements since rectal tube was removed. Bonner catheter has been removed. ROS No fevers, chills or sweats. No nausea, vomiting or diarrhea. No rashes or pruritis. Scheduled Medications aspirin 325 mg Per OG Tube Daily with breakfast cefepime 1 g Intravenous Q12H cholecalciferol 2,000 Units Oral Daily ciprofloxacin 400 mg Intravenous Q24H co-enzyme Q-10 100 mg Oral Daily docusate sodium 100 mg Oral BID Or docusate 100 mg Per OG Tube BID doxycycline (VIBRAMYCIN) IVPB 100 mg Intravenous Q12H hydrocortisone sodium succinate PF 50 mg Intravenous Q6H insulin aspart 0-15 Units Subcutaneous TID AC insulin aspart 0-15 Units Subcutaneous Nightly multivitamin with minerals 1 tablet Oral Daily with breakfast pantoprazole 40 mg Oral QAM AC pneumococcal 23-valent vaccine 0.5 mL Intramuscular Once Immunization Continuous Infusions dextrose heparin 50 units/mL 250 Units/hr (01/01/15 0750) insulin regular 1 unit/mL 4.2 Units/hr (12/31/14 1054) norepinephrine in D5W 64 mcg/mL Stopped (01/01/15 1300) sodium chloride (IV) PRN Medications acetaminophen OR acetaminophen, dextrose, dextrose, dextrose, glucagon, glucagon, hepar in (porcine), heparin (porcine), lip moisturizer, magnesium sulfate OR magnesium sulfate OR magnesium sulfate OR magnesium sulfate, nystatin, nystatin, ondansetron OR o ndansetron, petrolatum, phosphorus OR sodium phosphate IVPB 10 mmol OR sodium phosph ate IVPB 20 mmol potassium chloride OR potassium chloride OR potassium chloride OBJECTIVE Vital Signs: BP 91/62 | Pulse 86 | Temp(Src) 99 F (37.2 C) (Bladder) | Resp 25 | Ht 1.651 m (5' 5") | Wt 60.5 kg (133 lb 6.1 oz) | BMI 22.20 kg/m2 | SpO2 91% | ? No Temp (24hrs), Av.8 F (37.1 C), Min:98.1 F (36.7 C), Max:99.9 F (37.7 C) Exam: Const: Vitals reviewed. No acute distress Skin: No rashes, no edema Right IJ triple-lumen catheter site unremarkable. ENT: No thrush. Lungs: CTAB, no rales or wheezes Heart: RRR, no murmur Abd: soft, NT, + bowel sounds DATA CBC: Lab Results Component Value Date WBC 11.87* 01/02/2015 RBC 3.11* 01/02/2015 HGB 8.1* 01/02/2015 HCT 24.7* 01/02/2015 MCV 79.3* 01/02/2015 MCH 26.1* 01/02/2015 MCHC 32.9 01/02/2015 RDW 38.1 01/02/2015 PLT 56* 01/02/2015 MPV 8.8 01/02/2015 DIFFTYPE MANUAL 01/02/2015 CMP: Lab Results Component Value Date NA 132* 01/02/2015 K 4.4 01/02/2015 CL 96* 01/02/2015 CO2 28 01/02/2015 ANIONGAP 13 01/02/2015 GLUF 138* 01/02/2015 BUN 27* 01/02/2015 CREATININE 1.97* 01/02/2015 BCR 14 01/02/2015 CA 7.8* 01/02/2015 PROT 5.5* 01/02/2015 ALB 3.0* 01/02/2015 BILITOT 2.6* 01/02/2015 ALP 98 01/02/2015 AST 308* 01/02/2015 ALT 239* 01/02/2015 EGFR 27* 01/02/2015 Microbiology: Stool cultures pending. Blood cultures negative so far. 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 Differen tial diagnosis includes gastroenteritis secondary to cattle associated scottie such as Escheri alana coli, although foodborne illness is also possible. Consideration was also given to Q fe kun and Brucella. Continue current coverage with cefepime, Cipro and doxycycline, clinically improving. I will discontinue cefepime tomorrow if stool culture is negative. Cipro and Dox y will be continued while awaiting Q fever and Brucella serology. Fever, unspecified (12/30/2014) Improving. We will continue to monitor. Rhabdomyolysis (12/30/2014) Suspect secondary to severe sepsis. BERTIN (acute kidney injury) (12/30/2014) Could be suggestive of Escherichia coli 0157 syndrome, versus septic shock. Improving, karma l continue to monitor. Code Status: Full Code Clifford Quick DO 01/02/2015 onversion Transaction , Provider Unknown - 01/01/2015 10:02 AM PDT Case Management by AMOS Vasquez at 01/01/15 1002 Author: AMOS Vasquez Service: (none) Author Type: Cash Controller Filed: 01/01/15 1014 Date of Service: 01/01/15 1002 Status: Signed Planning Assistant: AMOS Vasquez (Cash Controller) Attended morning rounds. Pt is vented. Family are at the bedside. Pt is on pressors a abx. She has bilateral LL pneumonias. Clifford Blair DO - 01/01/2015 6:33 AM PDTFormatting of this note might be different from the gabbi ginal. Progress Notes by Clifford Quick DO at 01/01/15 0633 Author: Clifford Quick DO Service: (none) Author Type: Physician Filed: 01/01/15 0649 Date of Service: 01/01/15632 Status: Signed Planning Assistant: Clifford Quick DO (Physician) [facility] Service: Infectious Disease Progress Note Hospital Day: LOS: 2 days Post-Op Day: * No surgery found * SUBJECTIVE Patient Summary: 69 y.o. female with no significant past medical history, no chronic illnesses, known to get dehydrated easily due to small body habitus who was in her usual [facility] and recently attended a fitness class. Following that, the patient had reporte d some low back pain and thought that she might have strained a muscle. 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 Yesterday the patient started having nausea, vomiting, diar nelson and fever and was taken to the emergency department at [facility]. She had mild leukopenia there and low-grade fever. She was given cefepime and vancomycin and transfe rred to the ICU here for further management. Labs on arrival showed worsening rhabdomyolysis , renal failure, pancytopenia. She has been started on cefepime doxycycline and Cipro. CC: diarrheal illness, severe sepsis Chart reviewed: No new events. Subjective The family reiterates that she had a sudden onset of nausea, vomiting and diarrhea associat ed with fever the day of admission. She had previously been very healthy. 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 The patient has bee n weaned from ventilatory support and is currently on a spontaneous breathing trial, may be able to extubate later today. She denies pain, shortness of breath, nausea. ROS Limited as above, still intubated. Scheduled Medications albuterol 6 puff Inhalation Q4H aspirin 325 mg Per OG Tube Daily with breakfast cefepime 1 g Intravenous Q24H chlorhexidine gluconate 15 mL Mouth/Throat Q12H ciprofloxacin 400 mg Intravenous Q24H docusate sodium 100 mg Oral BID Or docusate 100 mg Per OG Tube BID doxycycline (VIBRAMYCIN) IVPB 100 mg Intravenous Q12H famotidine 20 mg Oral Daily Or famotidine 20 mg Intravenous Daily hydrocortisone sodium succinate PF 50 mg Intravenous Q6H Continuous Infusions dextrose fentaNYL in NS 5 mcg/mL 75 mcg/hr (12/31/14 0047) heparin 50 units/mL Stopped (01/01/15 0045) insulin regular 1 unit/mL 4.2 Units/hr (12/31/14 1054) midazolam in NS 1 mg/mL 5 mg/hr (12/31/14 0048) norepinephrine in D5W 64 mcg/mL 14 mcg/min (12/31/14 1416) sodium bicarbonate drip 100 mEq/1000 mL 110 mL/hr at 01/01/159 sodium chloride (IV) vasopressin in NS 0.4 unit/mL 0.03 Units/min (01/01/15 0429) PRN Medications acetaminophen OR acetaminophen, dextrose, dextrose, dextrose, glucagon, glucagon, hepar in (porcine), heparin (porcine), lip moisturizer, magnesium sulfate OR magnesium sulfate OR magnesium sulfate OR magnesium sulfate, nystatin, nystatin, ondansetron OR o ndansetron, petrolatum, phosphorus OR sodium phosphate IVPB 10 mmol OR sodium phosph ate IVPB 20 mmol potassium chloride OR potassium chloride OR potassium chloride OBJECTIVE Vital Signs: BP 102/78 | Pulse 90 | Temp(Src) 98.1 F (36.7 C) (Bladder) | Resp 18 | Ht 1.651 m (5' 5 ") | Wt 60.5 kg (133 lb 6.1 oz) | BMI 22.20 kg/m2 | SpO2 100% | ? No Temp (24hrs), Av.7 F (37.1 C), Min:96.6 F (35.9 C), Max:100.9 F (38.3 C) Exam: Const: Vitals reviewed. No acute distress, intubated, but awake and alert Skin: No rashes, no edema Right IJ triple-lumen catheter site unremarkable. ENT: No thrush. Lungs: CTAB, no rales or wheezes Heart: RRR, no murmur Abd: soft, NT, + bowel sounds Musculoskeletal: No gross deformity or active arthritis DATA CBC: Lab Results Component Value Date WBC 9.24 01/01/2015 RBC 3.37* 01/01/2015 HGB 9.0* 01/01/2015 HCT 26.5* 01/01/2015 MCV 78.6* 01/01/2015 MCH 26.8* 01/01/2015 MCHC 34.2 01/01/2015 RDW 36.8* 01/01/2015 PLT 63* 01/01/2015 MPV 7.9 01/01/2015 DIFFTYPE MANUAL 01/01/2015 CMP: Lab Results Component Value Date NA 128* 01/01/2015 K 3.1* 01/01/2015 CL 94* 01/01/2015 CO2 23 01/01/2015 ANIONGAP 14 01/01/2015 GLUF 186* 01/01/2015 BUN 24 01/01/2015 CREATININE 1.73* 01/01/2015 BCR 14 01/01/2015 CA 7.6* 01/01/2015 PROT 5.0* 01/01/2015 ALB 3.3 01/01/2015 BILITOT 2.7* 01/01/2015 ALP 55 01/01/2015 AST 423* 01/01/2015 ALT 226* 01/01/2015 EGFR 31* 01/01/2015 Microbiology: Stool cultures pending. Blood cultures negative so far. Medical imaging: This morning's chest x-ray was viewed in PACS and does not show any eviden ce of focal consolidation or infiltrates. Possible small bilateral pleural effusions. Left i nspiratory effort today, otherwise no significant change compared to yesterday's study. Radi ology report pending. 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 Differen tial diagnosis includes gastroenteritis secondary to cattle associated scottie such as Escheri alana coli, although foodborne illness is also possible. Consideration was also given to Q fe kun and Brucella. Continue current coverage with cefepime, Cipro and doxycycline, clinically improving. I am going to hold off on adding an aminoglycoside unless Brucella is confirmed, due to the patient's acute renal failure. Serology has been sent for Q fever and Brucella. Stool studies including cultures and PCR for viral syndromes pending at this time. Fever, unspecified (12/30/2014) Improving. We will continue to monitor. Rhabdomyolysis (12/30/2014) Suspect secondary to severe sepsis. BERTIN (acute kidney injury) (12/30/2014) Could be suggestive of Escherichia coli 0157 syndrome, versus septic shock. Improving, karma l continue to monitor. I will increase cefepime to 1 g every 12 hours today. Cipro dose charly ins appropriate. Code Status: Full Code Clifford Quick DO 01/01/2015 Adonay Beckford MD - 6:28 AM PDT Progress Notes by Adonay Sesay MD at 01/01/15627 Author: Adonay Sesay MD Service: Equipment Application Specialist Author Type: Equipment Application Specialist Filed: 01/01/1547 Date of Service: 01/01/15627 Status: Signed Planning Assistant: Adonay Sesay MD (Physician) [facility] Service: Equipment Application Specialist Progress Note Pastora Trejo 69 y.o. Date of Admission: 12/30/2014 Requesting Physician: Dr Chelo Paz [facility], [facility] Indication for ICU Admission: Fever, Rhabdomyolysis and BERTIN History Obtained From: Alex Cooper CHIEF COMPLAINT: "My mom really got sick and dehydrated" HISTORY OF PRESENT ILLNESS The patient is a 69 y.o. female with significant past medical history easily getting dehydr ated when she gets sick. She is actually in good health without chronic illnesses. 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 Latter she developed di arrhea and seemed to get dehydrated. She had several episodes of vomiting. She felt a west le better on Thursday12/29/14 but worse again on Thursday12/30/14 so went to the ED at [facility]. In ED she had a WBC of 11 K without a left shift but had a fever to 105 degrees F arenheit. She was cultured up and given Cefipime and Vanco IV. CXR and CT of the head were negative. She was given 5 liters of NS but by the time she got to [facility] she had gone into mild pulmonary edema dn was wheezing. CVP was 20 and she was given bronchodiloators and La six. CPK was 2452 and Myoglobin 5691, troponin was low and EKG without ishcimic changes. H er creatinine was 3.3 and BUN was 40, bicarb was 19 and ABG 7.4/. She was confused. S he had a mild CUNNINGHAM but denied CP of abdominal pain. No blood in diarrhea the color of it was green. ICU TIME LINE: 12/30/14 [place] [facility] Admission with Septic Shock 12/31/14 STEMI Overnight Events: Has stabilized but has developed a complication of a STEMI in the later al wall. ECHO pending. Troponin peaked at 12 thus far. She is being treated with heparin and ASA. Pressers are being weaned. Being readied for extubation. PAST MEDICAL HISTORY No past medical history on file. PAST SURGICAL HISTORY No past surgical history on file. ALLERGIES Allergies Allergen Reactions Codeine Rash Serotonin Reuptake Inhibitors (Ssris) Anxiety and Rash MEDICATIONS PRIOR TO ADMISSION Prior to Admission medications Not on File FAMILY HISTORY OF SIGNIFICANCE No family history on file. SOCIAL HISTORY History Social History Marital Status: Spouse Name: N/A Number of Children: N/A Years of Education: N/A Occupational History Not on file. Social History Main Topics Smoking status: Never Smoker Smokeless tobacco: Not on file Alcohol Use: Not on file Drug Use: Not on file Sexual Activity: Not on file Other Topics Concern Not on file Social History Narrative No narrative on file PHYSICAL EXAM VITAL SIGNS Temp: [96.4 F (35.8 C)-100.9 F (38.3 C)] 98.1 F (36.7 C) Heart Rate: [80-109] 90 Resp: [0-38] 18 BP: (76-116)/(50-78) 102/78 mmHg Arterial Line BP: (70-140)/(53-71) 120/64 mmHg FiO2 : [40 %-60 %] 40 % CVP (mean): [8 mmHg-237 mmHg] 15 mmHg (01/01 0600) PA catheter wave form: [-] EXAM GEN: Intubated but on no sedation, awake and fpollows commands briskly NEURO: PERRLA, EOMI, no facial asymmetry, moves all extremities well HEENT: sclerae clear, icteric sclera, oral mmm, pink, no exudates NECK: supple, trachea midline, right IJ in place. HEART: RRR, S1/S2, no murmur, rub or gallop LUNGS: expiratory wheezing, no rales or rhonchi, symmetric chest expansion, labored respir ations ABD: soft, nondistended, nontender to palpation, no masses, no hepatosplenomegaly EXTR: no edema, clubbing or cyanosis SKIN: warm, dry, no rash or mottling; no e/o skin breakdown over the occiput, scapulae, elb ows, sacrum or heels LINES/TUBES: Right IJ TLC DATA Recent Labs Lab 01/01/15439 WBC 9.24 RBC 3.37* HGB 9.0* HCT 26.5* MCV 78.6* MCH 26.8* MCHC 34.2 RDW 36.8* PLT 63* MPV 7.9 BANDSABS 2.86* MORPH 1+ Recent Labs Lab 01/01/15 04401/01/15 0440 12/31/14 1933 12/31/14 1752 12/31/14 0633 NA -- 128* -- -- 132* < > 128* K -- 3.1* < > -- 3.2* < > 2.6* CL -- 94* -- -- 97* < > 95* CO2 -- 23 -- -- 21* < > 17* ANIONGAP -- 14 -- -- 17 < > 19 GLUF -- 186* -- -- 178* < > 346* BUN -- 24 -- -- 25 < > 28* CREATININE -- 1.73* -- -- 1.98* < > 2.07* BCR -- 14 -- -- 13 < > 13 CA -- 7.6* -- -- 7.4* < > 6.2* ALB 3.3 -- -- -- -- -- -- PROT 5.0* -- -- -- -- -- -- BILITOT 2.7* -- -- -- -- -- -- ALT 226* -- -- -- -- -- -- AST 423* -- -- -- -- -- -- EGFR -- 31* -- -- 27* < > 25* PHOS -- -- -- -- -- -- 2.3 MG -- -- -- 2.8* -- < > 1.3* < > = values in this interval not displayed. Recent Labs Lab 12/31/14 1829 INR 1.7 IMAGING PROBLEM LIST Principal Problem: Severe sepsis with septic shock Active Problems: STEMI (ST elevation myocardial infarction) Fever, unspecified Delirium Rhabdomyolysis BERTIN (acute kidney injury) Acute respiratory failure Metabolic acidosis ASSESSMENT & PLAN NEURO: Metabolic Encephalopathy: Related to her acid base derangements and fever etc. LP done with clear CSF results of studies pending, Noncontrast CT unremarkable at [facility]'s CV: Severe Sepsis with Shock: Related to dehydration from diarrhea and fever. A unifying diagnosis is still not clear. 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 She has been pancultures and put on broad spectrum antibioti cs to cover a variety of enteric pathogens and Q fever. Covered with Doxy, Cipro and Cefapi me, cultures here still negative will need to check with Yovanny's STEMI: Lateral wall on EKG, ECHO pending and troponin peaked at 12, treated with hepari n and ASA. Appreciate Dr Zuniga input. Will add b blockers, Harsha Inhibitors and statins as she recovers PULM: Acute Resp Failure: minimal vent settings, awake and anticipate extubation today GI/NUTRITION: Nutrition: Advance tube feedings Diarrhea: Stools studies thus far negative Transaminitis: AST 423 ALT 226 T Bili 2.7 Alkphos 55 RENAL/LYTES: BERTIN: Related to dehydration and rhabdomyolysis, will keep well hydrated, UA does not schilling ggest UTI cpk down to 4956 on December 31 ID: Fever of unclear etiology/?Sepsis: Have cultured blood and urine and CSF but no apparen t source at this time. A unifying diagnosis is still not clear. It may be that she came down with an underlying infection that has resulted in a combination of diarrhea and dehydr ation and rhabdomyolysis and BERTIN with a metabolic acidosis. She has been pancultures and pu t on broad spectrum antibiotics. Will check serial lactic acid levels January 01 level is 3 HEME: Pancytopenia; Related to severe sepsis, Platelets are 77K doubt HIT Protime slightly elevated at 15 sec from [place] ENDO: No DM MUSC/SKIN: no Skin lesions PROPHYLAXIS: Stress ulcer prophylaxis: pepcid DVT prophylaxis: heparin VAP bundle: chlorhexadine oral care, HOB >30 degrees. Disposition: ICU Care Code Status: Full Code Primary Care Physician: JUAN DONG *Please bill 40 minutes of critical care time spent evaluating the patient, reviewing the d niecy and formulating a plan exclusive of all other procedures. Adonay Sesay MD 01/01/2015 6:33 AM onversio n Transaction, Provider Unknown - 12/31/2014 6:49 PM PDTFormatting of this note might be di fferent from the original. Progress Notes by Katie June RN at 12/31/141848 Author: Katie June RN Service: (none) Author Type: Registered Nurse Filed: 12/31/141848 Date of Service: 12/31/141848 Status: Signed Planning Assistant: Katie June RN (Registered Nurse) OK to replace [address] Gomez. Serum K: 3.2 BUN: 25 Creat: 1.98 Katie June 12/31/2014 6:49 PM Alicia Carrillo MD - 12/31/2014 6:04 PM PDTFormatting of this note might be different from t elsy original. Progress Notes by Alicia Gomez MD at 12/31/141803 Author: Alicia Gomez MD Service: Equipment Application Specialist Author Type: Physician Filed: 12/31/141806 Date of Service: 12/31/141803 Status: Signed Planning Assistant: Alicia Gomez MD (Physician) [facility] Service: Equipment Application Specialist Progress Note Troponin noted at 7 this afternoon. Repeat EKG with lateral lead ST wave elevation. Cardiol ognathaly service contacted, and Dr Javier evaluated her. Given her medical condition, her risk is t oo high for a L heart cath and PCI high right now. Medical therapy is recommended. Please se e Dr Javier's consult note. Will update family of recent events. Continue supportive therapy. Alicia Gomez MD Pulmonary and Critical Care Medicine [facility] [address] [place] [address] onversion Trans action, Provider Unknown - 12/31/2014 11:12 AM PDT Progress Notes by Joseline Joy RD at 12/31/14 111 Author: Joseline Joy RD Service: (none) Author Type: Registered Dietitian Filed: 12/31/141111 Date of Service: 12/31/141111 Status: Signed Planning Assistant: Joseline oJy RD (Registered Dietitian) 12/31/14 1052 Subjective Timepoint Admit (routine ICU consult) Pt c/o Pt intubated and sedated. Admitted with septic shock, delirium, BERTIN, acute respirat ory failure, metabolic acidosis and diarrhea. Diet Experience Self-selected diet(s) followed No family present to obtain diet hx. Food Intake Amount of Food NPO x 1 day. Per RN, no plans for TF yet. Parenteral Nutrition Intake Rate/Solution Pt on norepinephrine at 18 mcg/min. Micronutrient Intake Vitamin Intake K Nutrition-Focused Physical Findings Overall Appearance Pt intubated and sedated; appears adequately nourished. No skin breakdo wn noted. Digestive System (Mouth to Rectum) Pt admitted with diarrhea, unknown cause at this time. Anthropometrics Height 1.651 m (5' 5") Weight 60.5 kg (133 lb 6.1 oz) Weight Change 100 Weight change BMI of 22.2 (wnl) BMI (Calculated) 22.2 Biochemical data, medical tests, and procedures reviewed Biochemical data, medical tests, and procedures reviewed Na 128 (L), K2.6 (L) - being repla honey; BG 346 (H) - receiving novolog; BUN 28 (H), Cr 2.07 (H) - pt with BERTIN. Estimated Energy Needs Total Energy Estimated Needs 1510 - 1815 kcal/day Method for Estimating Needs 25 - 30 kcal/kg Estimated Protein Needs Total Protein Estimated Needs 91 - 121 g/day Method for Estimating Needs 1.5 - 2 g/kg Recommendations Recommended energy needs If unable to advance pt's diet in next 24-48 hrs, recommend nutrit ion support. RD available for recommendations. Nutritional Risk Nutritional risk High Nutritional risk comment Inadequate oral intake related to mechanical ventilation as eviden honey by NPO diet order. Follow up date 01/03/15 onver ousmane Transaction, Provider Unknown - 12/31/2014 8:01 AM PDT Progress Notes by Miladis Benton RPH at 12/31/14 08 Author: Miladis Benton RPH Service: (none) Author Type: Pharmacist Filed: 12/31/14800 Date of Service: 12/31/14800 Status: Signed Planning Assistant: Miladis Benton RPH (Pharmacist) >> MILADIS BENTON 12/31/2014 08:00 Todays Scr= 2.07 with estim CrCl= 23.4 ml/min Decrease Cipro 400mg IVPB to q24hr with next dose 0100-01/01/15. Continue Cefepine 1gm IV q 24hr (based on normal dosing sched of 2gm IV q 12h) For CrCl 11-29 ml/min. Pharmacist; Miladis Benton 12/31/2014 8:00 AM onver ousmane Transaction, Provider Unknown - 12/31/2014 8:00 AM PDT Progress Notes by Miladis Benton RPH at 12/31/14 08 Author: Miladis Benton RPH Service: (none) Author Type: Pharmacist Filed: 12/31/14799 Date of Service: 12/31/14799 Status: Signed Planning Assistant: Miladis Benton RPH (Pharmacist) Todays Scr= 2.07 with estim CrCl= 23.4 ml/min Decrease Cipro 400mg IVPB to q24hr with next dose 0100-01/01/15. Continue Cefepine 1gm IV q 24hr (based on normal dosing sched of 2gm IV q 12h) For CrCl 11-29 ml/min. Pharmacist; Miladis Benton 12/31/2014 8:00 AM onver ousmane Transaction, Provider Unknown - 12/31/2014 12:31 AM PDT Progress Notes by Nighat Trinidad RPH at 12/31/1430 Author: Nighat Trinidad RPH Service: (none) Author Type: Pharmacist Filed: 12/31/1430 Date of Service: 12/31/1430 Status: Signed Planning Assistant: Nighat Trinidad RPH (Pharmacist) Clinical Pharmacy Note: Renal Monitoring Pastora Trejo 69 y.o. female Weight: 60.5 kg Serum Creatinine: 2.48 mg/dL Estimated creatinine clearance - Cockcroft-Gault CrCl: 20 mL/min. Pharmacy dosing for renal function per Dr. Sesay Will order the following dosage adjustments: Cefepime 1 g IV Q24H (adjusted based on 2 g Q12H per MD) Pepcid 20 mg IV/PO Q24H Will continue Cipro 400 mg IV Q12H for now. Will check AM labs - if creatinine has improved, will increase Cefepime; if not improved, w ill adjust Cipro to Q24H. Pharmacy will continue to monitor for changes in medication orders and in renal function an d adjust accordingly per protocol. Nighat Trinidad PharmD 12/31/2014 12:17 AM docume nted in this encounter H&P Notes Adonay Sesay MD - 12/30/2014 10:02 PM PDT H&P by Adonay Sesay MD at 12/30/142201 Author: Adonay Sesay MD Service: Equipment Application Specialist Author Type: Equipment Application Specialist Filed: 12/31/14 0005 Date of Service: 12/30/142201 Status: Addendum Planning Assistant: Adonay Sesay MD (Physician) Related Notes: Original Note by Adonay Sesay MD (Physician) filed at 12/30/142300 [facility] Service: Equipment Application Specialist Admission History & Physical Pastora Trejo 69 y.o. Date of Admission: 12/30/2014 Requesting Physician: Dr Chelo Paz [facility] ED, [facility] Indication for ICU Admission: Fever, Rhabdomyolysis and BERTIN History Obtained From: Alex Cooper CHIEF COMPLAINT: "My mom really got sick and dehydrated" HISTORY OF PRESENT ILLNESS The patient is a 69 y.o. female with significant past medical history easily getting dehydr ated when she gets sick. She is actually in good health without chronic illnesses. 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 Latter she developed di arrhea and seemed to get dehydrated. She had several episodes of vomiting. She felt a west le better on Thursday12/29/14 but worse again on Thursday12/30/14 so went to the ED at [facility]. In ED she had a WBC of 11 K without a left shift but had a fever to 105 degrees F arenheit. She was cultured up and given Cefipime and Vanco IV. CXR and CT of the head were negative. She was given 5 liters of NS but by the time she got to [facility] she had gone into mild pulmonary edema dn was wheezing. CVP was 20 and she was given bronchodiloators and La six. CPK was 2452 and Myoglobin 5691, troponin was low and EKG without ishcimic changes. H er creatinine was 3.3 and BUN was 40, bicarb was 19 and ABG 7.4/26/67. She was confused. S he had a mild CUNNINGHAM but denied CP of abdominal pain. No blood in diarrhea the color of it was green. REVIEW OF SYSTEMS Negative except for pertinent items noted in HPI. PAST MEDICAL HISTORY No past medical history on file. PAST SURGICAL HISTORY No past surgical history on file. ALLERGIES Allergies Allergen Reactions Codeine Rash Serotonin Reuptake Inhibitors (Ssris) Anxiety and Rash MEDICATIONS PRIOR TO ADMISSION Prior to Admission medications Not on File FAMILY HISTORY OF SIGNIFICANCE No family history on file. SOCIAL HISTORY History Social History Marital Status: Spouse Name: N/A Number of Children: N/A Years of Education: N/A Occupational History Not on file. Social History Main Topics Smoking status: Not on file Smokeless tobacco: Not on file Alcohol Use: Not on file Drug Use: Not on file Sexual Activity: Not on file Other Topics Concern Not on file Social History Narrative No narrative on file PHYSICAL EXAM VITAL SIGNS Temp: [102 F (38.9 C)] 102 F (38.9 C) Heart Rate: [111-117] 115 Resp: [24-58] 58 BP: (75-126)/(42-62) 94/62 mmHg CVP (mean): [2 mmHg-12 mmHg] 2 mmHg (12/30 2134) PA catheter wave form: [-] EXAM GEN: awake and oriented to name and follows one step commands but not oriented to day or ti me, uncomfortable rollikng around in bed trying to find a comfortable position NEURO: PERRLA, EOMI, no facial asymmetry, moves all extremities well GCS [id number] = 14 HEENT: sclerae clear, icteric sclera, oral mmm, pink, no exudates NECK: supple, trachea midline HEART: RRR, S1/S2, no murmur, rub or gallop LUNGS: expiratory wheezing, no rales or rhonchi, symmetric chest expansion, labored respir ations ABD: soft, nondistended, nontender to palpation, no masses, no hepatosplenomegaly EXTR: no edema, clubbing or cyanosis SKIN: warm, dry, no rash or mottling; no e/o skin breakdown over the occiput, scapulae, elb ows, sacrum or heels LINES/TUBES: Right IJ TLC DATA Recent Labs Lab 12/30/14 2322 WBC 1.75* RBC 4.09 HGB 11.1* HCT 33.5* MCV 81.8 MCH 27.1 MCHC 33.1 RDW 38.5 PLT 101* MPV 7.7 Recent Labs Lab 12/30/14 2220 NA 137 K 4.0 CL 107 CO2 16* ANIONGAP 18 GLUF 74 BUN 34* CREATININE 2.48* BCR 14 CA 6.5* ALB 2.4* PROT 5.0* BILITOT 1.7* ALT 62 AST 155* EGFR 21* Recent Labs Lab 12/30/14 2220 INR 1.3 IMAGING PROBLEM LIST Principal Problem: Severe sepsis with septic shock Active Problems: Fever, unspecified Delirium Rhabdomyolysis BERTIN (acute kidney injury) Acute respiratory failure Metabolic acidosis ASSESSMENT & PLAN NEURO: Metabolic Encephalopathy: Related to her acid base derangements and fever etc. LP done with clear CSF results of studies pending, Noncontrast CT unremarkable at [facility] CV: Severe Sepsis with Shock: Related to dehydration from diarrhea and fever. A unifying diagnosis is still not clear. 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 She has been pancultures and put on broad spectrum antibioti cs to cover a variety of enteric pathogens and Q fever, discussed with Dr Quick from ID by ph one. PULM: Acute Resp Failure: With wheezing and bibasilar infiltrates which may be related to agr essive rehydration and mild pulmonary edema or unrelated pneumonia GI/NUTRITION: NPO for now Diarrhea: Copious green diarrhea, may be infectious will send a C Diff and check O and P and shigga toxin. Differential would include food poisoning or campylobacter related diar nelson or salmonella Transaminitis: AST 103 ALT 55 T Bili 2.2 Alkphos 68 RENAL/LYTES: BERTIN: Related to dehydration and rhabdomyolysis, will keep well hydrated, UA does not schilling ggest UTI ID: Fever of unclear etiology/?Sepsis: Have cultured blood and urine and CSF but no apparen t source at this time. A unifying diagnosis is still not clear. It may be that she came down with an underlying infection that has resulted in a combination of diarrhea and dehydr ation and rhabdomyolysis and BERTIN with a metabolic acidosis. She has been pancultures and pu t on broad spectrum antibiotics. Will check serial lactic acid levels. HEME: Pancytopenia; Related to severe sepsis Protime slightly elevated at 15 sec from [facility] ENDO: No DM MUSC/SKIN: no Skin lesions PROPHYLAXIS: Stress ulcer prophylaxis: pepcid DVT prophylaxis: heparin VAP bundle: chlorhexadine oral care, HOB >30 degrees. Disposition: ICU Care Code Status: Full Code Primary Care Physician: JUAN DONG *Please bill 90 minutes of critical care time spent evaluating the patient, reviewing the d niecy and formulating a plan exclusive of all other procedures. Adonay Sesay MD 12/30/2014 11:51 PM documente d in this encounter Procedure Notes Adonay Sesay MD - 12/31/2014 12:05 AM PDT Procedures by Adonay Sesay MD at 12/31/144 Author: Adonay Sesay MD Service: Equipment Application Specialist Author Type: Equipment Application Specialist Filed: 12/31/14 0006 Date of Service: 12/31/144 Status: Signed Planning Assistant: Adonay Sesay MD (Physician) [facility] Service: Equipment Application Specialist Right Femoral Arterial Line Procedure Pastora [id number] @OS@ Indication: To provide closer and more intense monitoring of the patients blood pressure due to the patients critical illness and need for more timely and accurate assessment of the patients blood pressure. This line will also provide access for blood draws for assorted l abs and specifically ABG draws. Consent: Risks benefits and alternatives were discussed with the patient and or the family and they were given an opportunity to ask questions. The specific risks discussed included bleeding, infection and vascular injury. The patient and or family agreed to proceed. Procedure: The patients right groin was prepped and draped in a sterile fashion using 2% c hlorhexidine. The skin over the femoral artery at the level just under the inguinal ligamen t was anesthestized with 1% lidocaine 1-2 cc's and a needle was passed into the femoral elis ry without difficulty. A guide wire was passed and a 12 cm 20 gauge arterial line was passe d into the artery and secured in place with a suture. Complications: The patient tolerated the procedure well there were no complications. EBL: <1cc Adonay Sesay MD 12/31/201412:06 AM Adonay Beckford MD - 12/31/2014 12:05 AM PDTFormatting of this note might be different from the origin al. Procedures by Adonay Sesay MD at 12/31/144 Author: Adonay Sesay MD Service: Equipment Application Specialist Author Type: Equipment Application Specialist Filed: 12/31/14 0005 Date of Service: 12/31/144 Status: Signed Planning Assistant: Adonay Sesay MD (Physician) [facility] Service: Equipment Application Specialist Procedure: Oral Trachel Intubation Indication: Respiratory Failure Consent: Risks, benefits and alternatives are discussed with the family and or patient and the decision has been made to proceed. Risks discussed include aspiration pneumonia, loss of the airway, cardiac arrest and . Anesthesia: The patient was medicated with etomidate .3mg/kg IV and rocuronium .6mg/kg IV. Procedure: The glide scope was used with a number 4 blade and a #8 ET tube. The patients airway was first evaluated and found to be acceptable. The mouth opened widely and omitted 3 finger breaths between the maxilla and mandible. There were 3 finger breaths distance be tween the thyroid cartilage and the mental aspect of the mandible. The patient was bagged w ith 100% oxygen without difficulty. The medications were given and then the glide scope karla de was introduced and the ET tube was passed without difficulty and secured at 23 cm at the lip. Good C02 return was noted on the C02 detector and the patient had good bilateral breat h sounds. Vital signs and oxygen saturations remained acceptable throughout the procedure. There were no complications. Chest Xray: Showed good position of the tube. Complications: None Adonay Sesay MD, FCCP Adonay Beckford MD - 12/30/2014 11:02 PM PDTFormatting of this note might be different from the origin al. Procedures by Adonay Sesay MD at 12/30/142301 Author: Adonay Sesay MD Service: Equipment Application Specialist Author Type: Equipment Application Specialist Filed: 12/30/142302 Date of Service: 12/30/142301 Status: Signed Planning Assistant: Adonay Sesay MD (Physician) [facility] Service: Equipment Application Specialist Lumbar Puncture Procedure Note Pre-operative Diagnosis: Post-operative Diagnosis: Indications: Diagnostic Procedure Details Consent: Informed consent was obtained. Risks of the procedure were discussed as well as al ternatives the risks discussed included: infection, bleeding, pain and headache. The patient was positioned in the right lateral decubitus position under sterile conditions . The position was assumed. A 2% chlorhexidine solution and sterile drapes were util ized. A 22 gauge spinal needle was inserted at the L 3-4 interspace. The opening pressure w as 18 cm. Eight cc's of clear spinal fluid was obtained and sent to the laboratory. Complications: "None; patient tolerated the procedure well." Condition: Stable Plan Bed rest for 4 hours. Tylenol 650 mg for pain. Adonay Sesay MD 12/30/2014 11:02 PM dAonay Beckford MD - 12/30/2014 11:02 PM PDTFormatting of this note might be different from the origin al. Procedures by Adonay Sesay MD at 12/30/142301 Author: Adonay Sesay MD Service: Equipment Application Specialist Author Type: Equipment Application Specialist Filed: 12/30/142301 Date of Service: 12/30/142301 Status: Signed Planning Assistant: Adonay Sesay MD (Physician) [facility] Service: Equipment Application Specialist ICU Right Internal Jugular Vein Triple Lumen Catheter Procedure Pastora Stock [id number] @[facility]@ Time out was called: Indication: This line is placed in order to provide access for volume assessment and deliv farrukh of vasoactive medication. Consent: Risks benefits and alternatives were discussed with the patient and or the family regarding this procedure. Major risks include bleeding, infection, vascular injury, and pn eumothorax. The patient and or family was given opportunity to ask questions. They elected to proceed. Procedure: The patient was prepped and draped in a sterile fashion using 2% chlorhexidine to cleans the skin of the right neck. In the supine position the insertion site was found u sing ultrasound guidance. The point selected was several cm above the clavicle. The skin w as anesthetized with 1% lidocaine 1-2 cc's, and the needle passed into the right internal ju gular vein. Venous blood returned and the guide wire was passed with out difficulty. A tri ple lumen catheter was passed after a dilator was used to prepare the site. The catheter wa s sutured in place and a bio patch was applied. A follow up chest xray was ordered to confi rm position of the line and exclude the possibility of a pneumothorax. EBL: <1cc Complications: None Adonay Sesay MD 12/30/201411:02 PM documente d in this encounter Consult Notes Giorgi Javier MD - 12/31/2014 6:06 PM PDTFormatting of this note might be different fro m the original. Consult* by Giorgi Javier MD at 12/31/141805 Author: Giorgi Javier MD Service: (none) Author Type: Physician Filed: 01/01/15917 Date of Service: 12/31/141805 Status: Signed Planning Assistant: Giorgi Javier MD (Physician) Related Notes: Original Note by Giorgi Javier MD (Physician) filed at 12/31/141813 [facility] Service: Cardiology Consult Note CHIEF COMPLAINT No chief complaint on file. HISTORY OF PRESENT ILLNESS 69-year-old female consulted at request of Dr. Gomez. The patient was admitted yesterday after developing problems with vomiting. 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 She later had diarrhea and seemed to be dehydrated. She was eval u[facility] at [facility] where she was found to be febrile to 105 degrees, elevated whi te count. She was treated there and then transferred here for further evaluation and treatme nt. She was found to have severe sepsis with shock syndrome as well as rhabdomyolysis, renal insufficiency, lactic acidosis, acute respiratory failure, and metabolic encephalopathy. Th is afternoon, a troponin was checked and found to be about 7. Subsequent ECG showed sinus rh ythm with new ST elevation in the lateral leads consistent with acute ST segment elevation M I in the lateral region. She apparently has no significant past medical history and no history of cardiac disease. T he patient is unable to provide history because she is intubated and sedated. PAST MEDICAL HISTORY No past medical history on file. Scheduled Meds: albuterol 6 puff Inhalation Q4H aspirin 325 mg Per OG Tube Daily with breakfast cefepime 1 g Intravenous Q24H chlorhexidine gluconate 15 mL Mouth/Throat Q12H [START ON 01/01/2015] ciprofloxacin 400 mg Intravenous Q24H docusate sodium 100 mg Oral BID Or docusate 100 mg Per OG Tube BID doxycycline (VIBRAMYCIN) IVPB 100 mg Intravenous Q12H famotidine 20 mg Oral Daily Or famotidine 20 mg Intravenous Daily hydrocortisone sodium succinate PF 50 mg Intravenous Q6H Continuous Infusions: dextrose fentaNYL in NS 5 mcg/mL 75 mcg/hr (12/31/14 0047) insulin regular 1 unit/mL 4.2 Units/hr (12/31/14 1054) midazolam in NS 1 mg/mL 5 mg/hr (12/31/14 0048) norepinephrine in D5W 64 mcg/mL 14 mcg/min (12/31/14 1416) sodium bicarbonate drip 100 mEq/1000 mL 110 mL/hr at 12/31/14 1730 sodium chloride (IV) vasopressin in NS 0.4 unit/mL 0.03 Units/min (12/31/14 0231) PRN Meds:.acetaminophen OR acetaminophen, dextrose, dextrose, dextrose, glucagon, gluca niels, lip moisturizer, magnesium sulfate OR magnesium sulfate OR magnesium sulfate OR magnesium sulfate, nystatin, nystatin, ondansetron OR ondansetron, petrolatum, phos phorus OR sodium phosphate IVPB 10 mmol OR sodium phosphate IVPB 20 mmol, potassium chloride OR potassium chloride OR potassium chloride ALLERGIES TO MEDICINES Allergies Allergen Reactions Codeine Rash Serotonin Reuptake Inhibitors (Ssris) Anxiety and Rash HABITS History Social History Marital Status: Spouse Name: N/A Number of Children: N/A Years of Education: N/A Social History Main Topics Smoking status: Never Smoker Smokeless tobacco: None Alcohol Use: None Drug Use: None Sexual Activity: None Other Topics Concern None Social History Narrative None FAMILY HISTORY No family history on file. REVIEW OF SYSTEMS The patient has no GI complaints, infection symptoms, or renal complaints. No new skin rash es, upper respiratory symptoms, or problems with his currently medical regimen. PHYSICAL EXAMINATION VITAL SIGNS: BP 90/59 | Pulse 87 | Temp(Src) 99.9 F (37.7 C) (Bladder) | Resp 18 | Ht 1.651 m (5' 5" ) | Wt 60.5 kg (133 lb 6.1 oz) | BMI 22.20 kg/m2 | SpO2 97% | ? No General Appearance: Intubated and sedated Head: Normocephalic, without obvious abnormality, atraumatic Eyes: Neck: Supple, symmetrical, trachea midline, thyroid: not enlarged, symmetric, no tendernes s, no carotid bruit or JVD Back: Lungs: Clear to auscultation bilaterally Chest Wall: nontender Heart: Regular rate and rhythm, no murmur, rub or gallop Abdomen: Soft, non-tender, bowel sounds active, No obvious masses or organomegaly Rectal: Not performed Extremities: No edema Pulses: 2+ and symmetric Skin: Skin cool and dry No obvious rashes or lesions Neurologic: sedated DATA CBC: Lab Results Component Value Date WBC 7.29 12/31/2014 RBC 3.65* 12/31/2014 HGB 9.8* 12/31/2014 HCT 28.8* 12/31/2014 MCV 78.8* 12/31/2014 MCH 26.8* 12/31/2014 MCHC 34.0 12/31/2014 RDW 36.8* 12/31/2014 PLT 77* 12/31/2014 MPV 7.3 12/31/2014 DIFFTYPE PENDING 12/31/2014 CMP: Lab Results Component Value Date NA 129* 12/31/2014 K 3.6 12/31/2014 CL 97* 12/31/2014 CO2 19* 12/31/2014 ANIONGAP 16 12/31/2014 GLUF 276* 12/31/2014 BUN 26* 12/31/2014 CREATININE 2.18* 12/31/2014 BCR 12 12/31/2014 CA 6.1* 12/31/2014 PROT 5.0* 12/31/2014 ALB 3.5 12/31/2014 BILITOT 2.4* 12/31/2014 ALP 31* 12/31/2014 AST 128* 12/31/2014 ALT 48 12/31/2014 EGFR 24* 12/31/2014 BMP: Lab Results Component Value Date NA 129* 12/31/2014 K 3.6 12/31/2014 CL 97* 12/31/2014 CO2 19* 12/31/2014 ANIONGAP 16 12/31/2014 GLUF 276* 12/31/2014 BUN 26* 12/31/2014 CREATININE 2.18* 12/31/2014 BCR 12 12/31/2014 CA 6.1* 12/31/2014 EGFR 24* 12/31/2014 Magnesium: Lab Results Component Value Date MG 1.7 12/31/2014 Phosphorus: Lab Results Component Value Date PHOS 2.3 12/31/2014 PT/INR: Lab Results Component Value Date INR 1.3 12/30/2014 PTT: Lab Results Component Value Date APTT 37* 12/30/2014 [APTT Troponin: Lab Results Component Value Date TROPONINI 7.52* 12/31/2014 Last 3 Troponin: Lab Results Component Value Date TROPONINI 7.52* 12/31/2014 TROPONINI 0.121* 12/31/2014 TROPONINI 0.178* 12/31/2014 HgBA1c: No results found for this basename: HGBA1C, LABGLYC TSH: No results found for this basename: TSH, TSHNEO, TSHREFLEX CPK: No components found with this basename: CPK CPK-MB: No components found with this basename: CPKMB EKG: Impression: Sinus rhythm with lateral ST elevation consistent with acute ST elevation UT, new from previous tracing. Radiology Review: See report IMPRESSION acute lateral wall ST elevation UT in the face of severe septic shock, rhabdomyolysis, guerline l insufficiency, metabolic acidosis, encephalopathy and thrombocytopenia. PLAN I agree with the interventionalist that she is too high risk for coronary angiography at [facility] and that she should be treated with medical therapy. To that end, aspirin and hepari n would be reasonable in the absence of contraindications. She is already on pressors and ot herwise supported. Could consider low-dose nitroglycerin if blood pressure tolerates, as wel l as a statin drug. Echocardiogram has already been ordered though I do not feel the result will change therapy. She is not a candidate for thrombolysis at this time. Giorgi Javier MD 6:07 PM 12/31/2014 Clifford Blair DO - 12/31/2014 7:10 AM PDT Consult* by Clifford Quick DO at 12/31/1410 Author: Clifford Quick DO Service: (none) Author Type: Physician Filed: 12/31/14 0724 Date of Service: 12/31/14709 Status: Signed Planning Assistant: Clifford Quick DO (Physician) [facility] Service: Infectious Disease Initial Consult Note Date of Admission: 12/30/2014 Reason for Consultation: Severe sepsis, enteric source, exposure to farm animals Requesting Physician: Shama Equipment Application Specialist History Obtained From: patient, chart review CHIEF COMPLAINT: Severe sepsis HISTORY OF PRESENT ILLNESS The patient is a 69 y.o. female with no significant past medical history, no chronic illnes ses, known to get dehydrated easily due to small body habitus who was in her usual state of health and recently attended a fitness class. Following that, the patient had reported some low back pain and thought that she might have strained a muscle. 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 Yesterday the patient started having nausea, vomiting, diarrhea an d fever and was taken to the emergency department at [facility]. She had mild le ukopenia there and low-grade fever. She was given cefepime and vancomycin and transferred to the ICU here for further management. Labs on arrival showed worsening rhabdomyolysis, renal failure, pancytopenia. She has been started on cefepime doxycycline and Cipro. The patient has required IV fluids and pressor support overnight, maxed out on norepinephrine with vasop ressin added this morning. The patient was cooled with a cooling blanket overnight, cooling blanket then removed with the patient's body temperature continuing to decline from 36-34. She is now being passively warmed under standard blankets. REVIEW OF SYSTEMS Review of Systems Not possible, intubated and sedated No past medical history on file. No past surgical history on file. Allergies Allergen Reactions Codeine Rash Serotonin Reuptake Inhibitors (Ssris) Anxiety and Rash No prescriptions prior to admission Scheduled Medications cefepime 1 g Intravenous Q24H chlorhexidine gluconate 15 mL Mouth/Throat Q12H ciprofloxacin 400 mg Intravenous Q12H docusate sodium 100 mg Oral BID Or docusate 100 mg Per OG Tube BID doxycycline (VIBRAMYCIN) IVPB 100 mg Intravenous Q12H famotidine 20 mg Oral Daily Or famotidine 20 mg Intravenous Daily heparin (porcine) 5000 unit/0.5mL 5,000 Units Subcutaneous 2 times per day hydrocortisone sodium succinate PF 50 mg Intravenous Q6H insulin aspart 0-10 Units Subcutaneous 4 times per day ipratropium-albuterol 3 mL Nebulization Q4H ipratropium-albuterol potassium chloride 40 mEq Intravenous Once Continuous Infusions dextrose fentaNYL in NS 5 mcg/mL 75 mcg/hr (12/31/14 0047) midazolam in NS 1 mg/mL 5 mg/hr (12/31/14 0048) norepinephrine in D5W 64 mcg/mL 10 mcg/min (12/30/14 6175) sodium bicarbonate drip 100 mEq/1000 mL 110 mL/hr at 12/31/14 0653 vasopressin in NS 0.4 unit/mL 0.03 Units/min (12/31/14 0231) PRN Medications acetaminophen OR acetaminophen, dextrose, dextrose, dextrose, glucagon, glucagon, lip m oisturizer, magnesium sulfate OR magnesium sulfate OR magnesium sulfate OR magne sium sulfate, nystatin, nystatin, ondansetron OR ondansetron, petrolatum, phosphorus O R sodium phosphate IVPB 10 mmol OR sodium phosphate IVPB 20 mmol, potassium chloride * *OR potassium chloride OR potassium chloride No family history on file. History Social History Marital Status: Spouse Name: N/A Number of Children: N/A Years of Education: N/A Occupational History Not on file. Social History Main Topics Smoking status: Not on file Smokeless tobacco: Not on file Alcohol Use: Not on file Drug Use: Not on file Sexual Activity: Not on file Other Topics Concern Not on file Social History Narrative No narrative on file PHYSICAL EXAM Vital Signs: BP 87/50 | Pulse 93 | Temp(Src) 95 F (35 C) (Bladder) | Resp 18 | Ht 1.651 m (5' 5") | Wt 60.5 kg (133 lb 6.1 oz) | BMI 22.20 kg/m2 | SpO2 90% | ? No Temp (24hrs), Av.5 F (38.1 C), Min:95 F (35 C), Max:102.9 F (39.4 C) Physical Exam Constitutional: The patient is intubated and sedated. Vital signs were reviewed as above Head: Normocephalic and atraumatic ENT: Mucous membranes are dry. Endotracheal tube is in place. Neck: Supple without thyromegaly or meningismus. Right IJ triple-lumen catheter site unremarkable Heart: Regular rate and rhythm without murmurs gallops or rubs Lungs: Mechanical breath sounds bilaterally without wheezes rales or rhonchi. Abdomen: Firm, not distended, bowel sounds are present, there is no organomegaly or mass Musculoskeletal: There is no gross deformity or active arthritis. Neuro: Not possible, intubated and sedated Skin: There are no rashes of clinical significance. There are no ulcerations or significant wounds. Extremities: There is no clubbing, cyanosis, or peripheral edema. Psychiatric: Not possible, intubated and sedated DATA CBC: Lab Results Component Value Date WBC 1.15* 12/31/2014 RBC 3.52* 12/31/2014 HGB 9.4* 12/31/2014 HCT 28.5* 12/31/2014 MCV 81.1 12/31/2014 MCH 26.8* 12/31/2014 MCHC 33.1 12/31/2014 RDW 38.1 12/31/2014 PLT 83* 12/31/2014 MPV 7.9 12/31/2014 DIFFTYPE MANUAL 12/31/2014 CMP: Lab Results Component Value Date NA 128* 12/31/2014 K 2.6* 12/31/2014 CL 95* 12/31/2014 CO2 17* 12/31/2014 ANIONGAP 19 12/31/2014 GLUF 346* 12/31/2014 BUN 28* 12/31/2014 CREATININE 2.07* 12/31/2014 BCR 13 12/31/2014 CA 6.2* 12/31/2014 PROT 5.0* 12/31/2014 ALB 3.5 12/31/2014 BILITOT 2.4* 12/31/2014 ALP 31* 12/31/2014 AST 128* 12/31/2014 ALT 48 12/31/2014 EGFR 25* 12/31/2014 Microbiology: Stool studies are pending including Beulah virus, rotavirus, stool culture. C. difficile n egative. Blood cultures negative 2 so far. Medical imaging: Chest x-rays were both reviewed and packs and show subtle bibasilar infiltrates, no dense c onsolidation seen, no apparent pleural effusions. Chest images on her CT scan of the chest a bdomen and pelvis show bibasilar consolidation with small adjacent pleural effusions. Radiol ogy reports as follows: Ct Chest Abdomen Pelvis Without Contrast 12/31/2014 1. Large bilateral lower lobe consolidations and small effusions, suspicious fo r pneumonia. 2. Pancolitis. C. difficile colitis is possible. 3. NG tube tip in the transver se duodenum. [facility] Electronically signed by Vasyl Silver MD on Dec 31 2014 4:59AM Referring Provider Line: [phone] ID: [id number] X-ray Chest Ap Only 12/31/2014 1. Life-support devices as reported above with interval intubation and placemen t of a nasogastric tube 2. Interval progression of the bilateral lower lobe airspace densit ies and small effusions infiltrate versus edema. X-ray Chest Ap Only 12/30/2014 FINDINGS/ IMPRESSION: Right internal jugular central venous catheter with tip i n the proximal right atrium. No pneumothorax. Bilateral diffuse airspace disease, consisten t with pulmonary edema or diffuse infection. Left pleural effusion. Upper mediastinal cont ours are normal. Heart size is normal. Bibasilar atelectasis. Medical record review: I have reviewed the patient's admission history and physical as well as progress notes from the current hospital stay. Emergency department notes have also been reviewed. Much of this information is summarized above in history of present illness. PROBLEM LIST Principal Problem: Severe sepsis with septic shock Active Problems: Fever, unspecified Delirium Rhabdomyolysis BERTIN (acute kidney injury) Acute respiratory failure Metabolic acidosis ASSESSMENT & PLAN Patient Active Hospital Problem List: Severe sepsis with septic shock (12/30/2014) The illnesses associated with severe diarrhea and recent exposure to young cattle. Differ ential diagnosis includes gastroenteritis secondary to cattle associated scottie such as Esche richia coli, although foodborne illness is also possible. Consideration was also given to Q fever and Brucella. Current coverage with cefepime, Cipro and doxycycline is reasonable. I a m going to hold off on adding an aminoglycoside unless Brucella is confirmed, due to the pat ient's current acute renal failure. Serology has been sent for Q fever and Brucella. Stool s tudies including cultures and PCR for viral syndromes pending at this time. Continue support cuca care. Fever, unspecified (12/30/2014) Resolved, although this may be artifact from cooling blanket overnight. We will continue to monitor. Rhabdomyolysis (12/30/2014) Suspect secondary to severe sepsis. BERTIN (acute kidney injury) (12/30/2014) Could be suggestive of Escherichia coli 0157 syndrome, although with the degree of illnes s antibiotic therapy needs to be given empirically. Code Status: Full Code Primary Care Physician: JUAN DONG Thank you for allowing me to participate in the care of this patient. I will continue to follow with you. Clifford Quick DO 12/31/2014 documented in this enc ounter Miscellaneous Notes Plan of Care - Conversion Transaction, Provider Unknown - 01/05/2015 9:35 AM PDT Plan of Care by Lyudmila Grijalva RN at 01/05/15 0935 Author: Lyudmila Grijalva RN Service: (none) Author Type: Registered Nurse Filed: 01/05/15 0936 Date of Service: 01/05/15934 Status: Signed Planning Assistant: Lyudmila Grijalva RN (Registered Nurse) Patient has no complaint of pain. She frequently gets up and walks around the unit. She is able to ambulate without her walker. Patient states that she is feeling better today. Lyudmila tang RN lan o f Care - Conversion Transaction, Provider Unknown - 01/04/2015 10:32 AM PDTFormatting of thi s note might be different from the original. Plan of Care by Lyudmila Grijalva RN at 01/04/15 1032 Author: Lyudmila Grijalva RN Service: (none) Author Type: Registered Nurse Filed: 01/04/15 1035 Date of Service: 01/04/15 103 Status: Signed Planning Assistant: Lyudmila Grijalva RN (Registered Nurse) Patient ambulated around the unit and to the bathroom with her walker. Patient had no complaints of pain. docume nted in this encounter Plan of Treatment Not on filedocumented as of this encounter Procedures + +--------+ + + + | Procedure Name | Priori | Date/Time | Associated Diagnosis | Comments | | | ty | | | | + +--------+ + + + | POC GLUCOSE | Routin | 01/05/2015 | | Results for this | | | e | 11:28 AM | | procedure are in the | | | | PDT | | results section. | + +--------+ + + + | POC GLUCOSE | Routin | 01/05/2015 | | Results for this | | | e | 5:19 AM | | procedure are in the | | | | PDT | | results section. | + +--------+ + + + | EXTERNAL LAB: CBC | Routin | 01/05/2015 | | Results for this | | | e | 4:40 AM | | procedure are in the | | | | PDT | | results section. | + +--------+ + + + | PHOSPHORUS | Routin | 01/05/2015 | | Results for this | | | e | 4:40 AM | | procedure are in the | | | | PDT | | results section. | + +--------+ + + + | MAGNESIUM | Routin | 01/05/2015 | | Results for this | | | e | 4:40 AM | | procedure are in the | | | | PDT | | results section. | + +--------+ + + + | CK TOTAL | Routin | 01/05/2015 | | Results for this | | | e | 4:40 AM | | procedure are in the | | | | PDT | | results section. | + +--------+ + + + | HEPATIC FUNCTION | Routin | 01/05/2015 | | Results for this | | PANEL | e | 4:40 AM | | procedure are in the | | | | PDT | | results section. | + +--------+ + + + | BASIC METABOLIC | Routin | 01/05/2015 | | Results for this | | PANEL | e | 4:40 AM | | procedure are in the | | | | PDT | | results section. | + +--------+ + + + | POC GLUCOSE | Routin | 01/04/2015 | | Results for this | | | e | 9:23 PM | | procedure are in the | | | | PDT | | results section. | + +--------+ + + + | POC GLUCOSE | Routin | 01/04/2015 | | Results for this | | | e | 3:57 PM | | procedure are in the | | | | PDT | | results section. | + +--------+ + + + | POTASSIUM | Routin | 01/04/2015 | | Results for this | | | e | 2:50 PM | | procedure are in the | | | | PDT | | results section. | + +--------+ + + + | POC GLUCOSE | Routin | 01/04/2015 | | Results for this | | | e | 11:14 AM | | procedure are in the | | | | PDT | | results section. | + +--------+ + + + | TROPONIN I | Routin | 01/04/2015 | | Results for this | | | e | 10:50 AM | | procedure are in the | | | | PDT | | results section. | + +--------+ + + + | POC GLUCOSE | Routin | 01/04/2015 | | Results for this | | | e | 5:20 AM | | procedure are in the | | | | PDT | | results section. | + +--------+ + + + | EXTERNAL LAB: CBC | Routin | 01/04/2015 | | Results for this | | | e | 4:12 AM | | procedure are in the | | | | PDT | | results section. | + +--------+ + + + | TROPONIN I | Routin | 01/04/2015 | | Results for this | | | e | 4:12 AM | | procedure are in the | | | | PDT | | results section. | + +--------+ + + + | PHOSPHORUS | Routin | 01/04/2015 | | Results for this | | | e | 4:12 AM | | procedure are in the | | | | PDT | | results section. | + +--------+ + + + | MAGNESIUM | Routin | 01/04/2015 | | Results for this | | | e | 4:12 AM | | procedure are in the | | | | PDT | | results section. | + +--------+ + + + | CK TOTAL | Routin | 01/04/2015 | | Results for this | | | e | 4:12 AM | | procedure are in the | | | | PDT | | results section. | + +--------+ + + + | HEPATIC FUNCTION | Routin | 01/04/2015 | | Results for this | | PANEL | e | 4:12 AM | | procedure are in the | | | | PDT | | results section. | + +--------+ + + + | BASIC METABOLIC | Routin | 01/04/2015 | | Results for this | | PANEL | e | 4:12 AM | | procedure are in the | | | | PDT | | results section. | + +--------+ + + + | POC GLUCOSE | Routin | 01/03/2015 | | Results for this | | | e | 9:09 PM | | procedure are in the | | | | PDT | | results section. | + +--------+ + + + | POTASSIUM | Routin | 01/03/2015 | | Results for this | | | e | 8:45 PM | | procedure are in the | | | | PDT | | results section. | + +--------+ + + + | PHOSPHORUS | Routin | 01/03/2015 | | Results for this | | | e | 8:45 PM | | procedure are in the | | | | PDT | | results section. | + +--------+ + + + | POC GLUCOSE | Routin | 01/03/2015 | | Results for this | | | e | 4:20 PM | | procedure are in the | | | | PDT | | results section. | + +--------+ + + + | POC GLUCOSE | Routin | 01/03/2015 | | Results for this | | | e | 11:25 AM | | procedure are in the | | | | PDT | | results section. | + +--------+ + + + | POC GLUCOSE | Routin | 01/03/2015 | | Results for this | | | e | 5:17 AM | | procedure are in the | | | | PDT | | results section. | + +--------+ + + + | IRON AND IRON | Routin | 01/03/2015 | | Results for this | | BINDING CAPACITY | e | 4:38 AM | | procedure are in the | | | | PDT | | results section. | + +--------+ + + + | VITAMIN B-12 | Routin | 01/03/2015 | | Results for this | | | e | 4:38 AM | | procedure are in the | | | | PDT | | results section. | + +--------+ + + + | FOLATE | Routin | 01/03/2015 | | Results for this | | | e | 4:38 AM | | procedure are in the | | | | PDT | | results section. | + +--------+ + + + | FERRITIN | Routin | 01/03/2015 | | Results for this | | | e | 4:38 AM | | procedure are in the | | | | PDT | | results section. | + +--------+ + + + | EXTERNAL LAB: CBC | Routin | 01/03/2015 | | Results for this | | | e | 4:08 AM | | procedure are in the | | | | PDT | | results section. | + +--------+ + + + | TROPONIN I | Routin | 01/03/2015 | | Results for this | | | e | 4:08 AM | | procedure are in the | | | | PDT | | results section. | + +--------+ + + + | PHOSPHORUS | Routin | 01/03/2015 | | Results for this | | | e | 4:08 AM | | procedure are in the | | | | PDT | | results section. | + +--------+ + + + | MAGNESIUM | Routin | 01/03/2015 | | Results for this | | | e | 4:08 AM | | procedure are in the | | | | PDT | | results section. | + +--------+ + + + | CK TOTAL | Routin | 01/03/2015 | | Results for this | | | e | 4:08 AM | | procedure are in the | | | | PDT | | results section. | + +--------+ + + + | HEPATIC FUNCTION | Routin | 01/03/2015 | | Results for this | | PANEL | e | 4:08 AM | | procedure are in the | | | | PDT | | results section. | + +--------+ + + + | BASIC METABOLIC | Routin | 01/03/2015 | | Results for this | | PANEL | e | 4:08 AM | | procedure are in the | | | | PDT | | results section. | + +--------+ + + + | POC GLUCOSE | Routin | 01/02/2015 | | Results for this | | | e | 9:34 PM | | procedure are in the | | | | PDT | | results section. | + +--------+ + + + | POC GLUCOSE | Routin | 01/02/2015 | | Results for this | | | e | 5:31 PM | | procedure are in the | | | | PDT | | results section. | + +--------+ + + + | POC GLUCOSE | Routin | 01/02/2015 | | Results for this | | | e | 11:18 AM | | procedure are in the | | | | PDT | | results section. | + +--------+ + + + | POC GLUCOSE | Routin | 01/02/2015 | | Results for this | | | e | 6:12 AM | | procedure are in the | | | | PDT | | results section. | + +--------+ + + + | PTT | Routin | 01/02/2015 | | Results for this | | | e | 3:44 AM | | procedure are in the | | | | PDT | | results section. | + +--------+ + + + | EXTERNAL LAB: CBC | Routin | 01/02/2015 | | Results for this | | | e | 3:43 AM | | procedure are in the | | | | PDT | | results section. | + +--------+ + + + | TROPONIN I | Routin | 01/02/2015 | | Results for this | | | e | 3:43 AM | | procedure are in the | | | | PDT | | results section. | + +--------+ + + + | PHOSPHORUS | Routin | 01/02/2015 | | Results for this | | | e | 3:43 AM | | procedure are in the | | | | PDT | | results section. | + +--------+ + + + | MAGNESIUM | Routin | 01/02/2015 | | Results for this | | | e | 3:43 AM | | procedure are in the | | | | PDT | | results section. | + +--------+ + + + | HEPATIC FUNCTION | Routin | 01/02/2015 | | Results for this | | PANEL | e | 3:43 AM | | procedure are in the | | | | PDT | | results section. | + +--------+ + + + | BASIC METABOLIC | Routin | 01/02/2015 | | Results for this | | PANEL | e | 3:43 AM | | procedure are in the | | | | PDT | | results section. | + +--------+ + + + | POC GLUCOSE | Routin | 01/01/2015 | | Results for this | | | e | 11:12 PM | | procedure are in the | | | | PDT | | results section. | + +--------+ + + + | LEGIONELLA AG, EIA, | Routin | 01/01/2015 | | Results for this | | QUAL, URINE | e | 8:47 PM | | procedure are in the | | | | PDT | | results section. | + +--------+ + + + | PTT | Routin | 01/01/2015 | | Results for this | | | e | 8:01 PM | | procedure are in the | | | | PDT | | results section. | + +--------+ + + + | CYTOMEGALOVIRUS AB, | Routin | 01/01/2015 | | Results for this | | IGG AND IGM | e | 8:00 PM | | procedure are in the | | | | PDT | | results section. | + +--------+ + + + | MYCOPLASMA AB, IGG | Routin | 01/01/2015 | | Results for this | | AND IGM | e | 8:00 PM | | procedure are in the | | | | PDT | | results section. | + +--------+ + + + | CYTOMEGALOVIRUS, | Routin | 01/01/2015 | | Results for this | | NAAT, QUANT | e | 8:00 PM | | procedure are in the | | | | PDT | | results section. | + +--------+ + + + | POC GLUCOSE | Routin | 01/01/2015 | | Results for this | | | e | 7:44 PM | | procedure are in the | | | | PDT | | results section. | + +--------+ + + + | TROPONIN I | Routin | 01/01/2015 | | Results for this | | | e | 6:08 PM | | procedure are in the | | | | PDT | | results section. | + +--------+ + + + | CK TOTAL | Routin | 01/01/2015 | | Results for this | | | e | 6:08 PM | | procedure are in the | | | | PDT | | results section. | + +--------+ + + + | POC GLUCOSE | Routin | 01/01/2015 | | Results for this | | | e | 5:24 PM | | procedure are in the | | | | PDT | | results section. | + +--------+ + + + | POC GLUCOSE | Routin | 01/01/2015 | | Results for this | | | e | 4:37 PM | | procedure are in the | | | | PDT | | results section. | + +--------+ + + + | POC GLUCOSE | Routin | 01/01/2015 | | Results for this | | | e | 2:26 PM | | procedure are in the | | | | PDT | | results section. | + +--------+ + + + | PTT | Routin | 01/01/2015 | | Results for this | | | e | 1:49 PM | | procedure are in the | | | | PDT | | results section. | + +--------+ + + + | TROPONIN I | Routin | 01/01/2015 | | Results for this | | | e | 1:48 PM | | procedure are in the | | | | PDT | | results section. | + +--------+ + + + | POTASSIUM | Routin | 01/01/2015 | | Results for this | | | e | 1:48 PM | | procedure are in the | | | | PDT | | results section. | + +--------+ + + + | CK TOTAL | Routin | 01/01/2015 | | Results for this | | | e | 1:48 PM | | procedure are in the | | | | PDT | | results section. | + +--------+ + + + | POC GLUCOSE | Routin | 01/01/2015 | | Results for this | | | e | 12:29 PM | | procedure are in the | | | | PDT | | results section. | + +--------+ + + + | POC GLUCOSE | Routin | 01/01/2015 | | Results for this | | | e | 10:33 AM | | procedure are in the | | | | PDT | | results section. | + +--------+ + + + | POC GLUCOSE | Routin | 01/01/2015 | | Results for this | | | e | 9:23 AM | | procedure are in the | | | | PDT | | results section. | + +--------+ + + + | POC GLUCOSE | Routin | 01/01/2015 | | Results for this | | | e | 8:24 AM | | procedure are in the | | | | PDT | | results section. | + +--------+ + + + | ECHO COMPLETE | Routin | 01/01/2015 | | Results for this | | | e | 7:53 AM | | procedure are in the | | | | PDT | | results section. | + +--------+ + + + | POC GLUCOSE | Routin | 01/01/2015 | | Results for this | | | e | 7:02 AM | | procedure are in the | | | | PDT | | results section. | + +--------+ + + + | XR CHEST 1 VIEW | Routin | 01/01/2015 | | Results for this | | | e | 5:56 AM | | procedure are in the | | | | PDT | | results section. | + +--------+ + + + | HIV 1 SCREEN, RAPID | Routin | 01/01/2015 | | Results for this | | | e | 5:50 AM | | procedure are in the | | | | PDT | | results section. | + +--------+ + + + | TROPONIN I | Routin | 01/01/2015 | | Results for this | | | e | 5:50 AM | | procedure are in the | | | | PDT | | results section. | + +--------+ + + + | CK TOTAL | Routin | 01/01/2015 | | Results for this | | | e | 5:50 AM | | procedure are in the | | | | PDT | | results section. | + +--------+ + + + | POC GLUCOSE | Routin | 01/01/2015 | | Results for this | | | e | 5:47 AM | | procedure are in the | | | | PDT | | results section. | + +--------+ + + + | HEPATIC FUNCTION | Routin | 01/01/2015 | | Results for this | | PANEL | e | 4:41 AM | | procedure are in the | | | | PDT | | results section. | + +--------+ + + + | EXTERNAL LAB: CBC | Routin | 01/01/2015 | | Results for this | | | e | 4:40 AM | | procedure are in the | | | | PDT | | results section. | + +--------+ + + + | PATHOLOGY CONSULT | Routin | 01/01/2015 | | Results for this | | REQUEST | e | 4:40 AM | | procedure are in the | | | | PDT | | results section. | + +--------+ + + + | PTT | Routin | 01/01/2015 | | Results for this | | | e | 4:40 AM | | procedure are in the | | | | PDT | | results section. | + +--------+ + + + | HEMOGLOBIN A1C | Routin | 01/01/2015 | | Results for this | | | e | 4:40 AM | | procedure are in the | | | | PDT | | results section. | + +--------+ + + + | BASIC METABOLIC | Routin | 01/01/2015 | | Results for this | | PANEL | e | 4:40 AM | | procedure are in the | | | | PDT | | results section. | + +--------+ + + + | POC GLUCOSE | Routin | 01/01/2015 | | Results for this | | | e | 4:25 AM | | procedure are in the | | | | PDT | | results section. | + +--------+ + + + | POC GLUCOSE | Routin | 01/01/2015 | | Results for this | | | e | 3:22 AM | | procedure are in the | | | | PDT | | results section. | + +--------+ + + + | POC GLUCOSE | Routin | 01/01/2015 | | Results for this | | | e | 2:07 AM | | procedure are in the | | | | PDT | | results section. | + +--------+ + + + | POC GLUCOSE | Routin | 01/01/2015 | | Results for this | | | e | 1:03 AM | | procedure are in the | | | | PDT | | results section. | + +--------+ + + + | TROPONIN I | Routin | 01/01/2015 | | Results for this | | | e | 12:09 AM | | procedure are in the | | | | PDT | | results section. | + +--------+ + + + | PTT | Routin | 01/01/2015 | | Results for this | | | e | 12:09 AM | | procedure are in the | | | | PDT | | results section. | + +--------+ + + + | POTASSIUM | Routin | 01/01/2015 | | Results for this | | | e | 12:09 AM | | procedure are in the | | | | PDT | | results section. | + +--------+ + + + | POC GLUCOSE | Routin | 12/31/2014 | | Results for this | | | e | 11:54 PM | | procedure are in the | | | | PDT | | results section. | + +--------+ + + + | POC GLUCOSE | Routin | 12/31/2014 | | Results for this | | | e | 10:39 PM | | procedure are in the | | | | PDT | | results section. | + +--------+ + + + | POC GLUCOSE | Routin | 12/31/2014 | | Results for this | | | e | 9:37 PM | | procedure are in the | | | | PDT | | results section. | + +--------+ + + + | POC GLUCOSE | Routin | 12/31/2014 | | Results for this | | | e | 8:30 PM | | procedure are in the | | | | PDT | | results section. | + +--------+ + + + | MAGNESIUM | Routin | 12/31/2014 | | Results for this | | | e | 7:33 PM | | procedure are in the | | | | PDT | | results section. | + +--------+ + + + | POC GLUCOSE | Routin | 12/31/2014 | | Results for this | | | e | 7:17 PM | | procedure are in the | | | | PDT | | results section. | + +--------+ + + + | PTT | Routin | 12/31/2014 | | Results for this | | | e | 6:29 PM | | procedure are in the | | | | PDT | | results section. | + +--------+ + + + | PROTIME INR | Routin | 12/31/2014 | | Results for this | | | e | 6:29 PM | | procedure are in the | | | | PDT | | results section. | + +--------+ + + + | POC GLUCOSE | Routin | 12/31/2014 | | Results for this | | | e | 6:12 PM | | procedure are in the | | | | PDT | | results section. | + +--------+ + + + | EXTERNAL LAB: CBC | Routin | 12/31/2014 | | Results for this | | | e | 5:52 PM | | procedure are in the | | | | PDT | | results section. | + +--------+ + + + | BASIC METABOLIC | Routin | 12/31/2014 | | Results for this | | PANEL | e | 5:52 PM | | procedure are in the | | | | PDT | | results section. | + +--------+ + + + | POC GLUCOSE | Routin | 12/31/2014 | | Results for this | | | e | 5:26 PM | | procedure are in the | | | | PDT | | results section. | + +--------+ + + + | ECG 12 LEAD | Routin | 12/31/2014 | | Results for this | | | e | 5:24 PM | | procedure are in the | | | | PDT | | results section. | + +--------+ + + + | TROPONIN I | Routin | 12/31/2014 | | Results for this | | | e | 4:22 PM | | procedure are in the | | | | PDT | | results section. | + +--------+ + + + | CK-MB | Routin | 12/31/2014 | | Results for this | | | e | 4:22 PM | | procedure are in the | | | | PDT | | results section. | + +--------+ + + + | POTASSIUM | Routin | 12/31/2014 | | Results for this | | | e | 4:22 PM | | procedure are in the | | | | PDT | | results section. | + +--------+ + + + | MAGNESIUM | Routin | 12/31/2014 | | Results for this | | | e | 4:22 PM | | procedure are in the | | | | PDT | | results section. | + +--------+ + + + | CK TOTAL | Routin | 12/31/2014 | | Results for this | | | e | 4:22 PM | | procedure are in the | | | | PDT | | results section. | + +--------+ + + + | POC GLUCOSE | Routin | 12/31/2014 | | Results for this | | | e | 4:18 PM | | procedure are in the | | | | PDT | | results section. | + +--------+ + + + | POC GLUCOSE | Routin | 12/31/2014 | | Results for this | | | e | 3:12 PM | | procedure are in the | | | | PDT | | results section. | + +--------+ + + + | POC GLUCOSE | Routin | 12/31/2014 | | Results for this | | | e | 2:11 PM | | procedure are in the | | | | PDT | | results section. | + +--------+ + + + | POC GLUCOSE | Routin | 12/31/2014 | | Results for this | | | e | 1:06 PM | | procedure are in the | | | | PDT | | results section. | + +--------+ + + + | CALCIUM, IONIZED | Routin | 12/31/2014 | | Results for this | | | e | 12:42 PM | | procedure are in the | | | | PDT | | results section. | + +--------+ + + + | BASIC METABOLIC | Routin | 12/31/2014 | | Results for this | | PANEL | e | 12:42 PM | | procedure are in the | | | | PDT | | results section. | + +--------+ + + + | LACTIC ACID | Routin | 12/31/2014 | | Results for this | | | e | 12:41 PM | | procedure are in the | | | | PDT | | results section. | + +--------+ + + + | POC GLUCOSE | Routin | 12/31/2014 | | Results for this | | | e | 11:57 AM | | procedure are in the | | | | PDT | | results section. | + +--------+ + + + | POC GLUCOSE | Routin | 12/31/2014 | | Results for this | | | e | 9:39 AM | | procedure are in the | | | | PDT | | results section. | + +--------+ + + + | POC GLUCOSE | Routin | 12/31/2014 | | Results for this | | | e | 6:52 AM | | procedure are in the | | | | PDT | | results section. | + +--------+ + + + | TROPONIN I | Routin | 12/31/2014 | | Results for this | | | e | 6:33 AM | | procedure are in the | | | | PDT | | results section. | + +--------+ + + + | CK-MB | Routin | 12/31/2014 | | Results for this | | | e | 6:33 AM | | procedure are in the | | | | PDT | | results section. | + +--------+ + + + | PHOSPHORUS | Routin | 12/31/2014 | | Results for this | | | e | 6:33 AM | | procedure are in the | | | | PDT | | results section. | + +--------+ + + + | MAGNESIUM | Routin | 12/31/2014 | | Results for this | | | e | 6:33 AM | | procedure are in the | | | | PDT | | results section. | + +--------+ + + + | LACTIC ACID | Routin | 12/31/2014 | | Results for this | | | e | 6:33 AM | | procedure are in the | | | | PDT | | results section. | + +--------+ + + + | CK TOTAL | Routin | 12/31/2014 | | Results for this | | | e | 6:33 AM | | procedure are in the | | | | PDT | | results section. | + +--------+ + + + | BASIC METABOLIC | Routin | 12/31/2014 | | Results for this | | PANEL | e | 6:33 AM | | procedure are in the | | | | PDT | | results section. | + +--------+ + + + | XR CHEST 1 VIEW | Routin | 12/31/2014 | | Results for this | | | e | 5:31 AM | | procedure are in the | | | | PDT | | results section. | + +--------+ + + + | CT CHEST ABDOMEN | Routin | 12/31/2014 | | Results for this | | PELVIS WO CONTRAST | e | 4:28 AM | | procedure are in the | | | | PDT | | results section. | + +--------+ + + + | EXTERNAL LAB: CBC | Routin | 12/31/2014 | | Results for this | | | e | 3:45 AM | | procedure are in the | | | | PDT | | results section. | + +--------+ + + + | LACTIC ACID | Routin | 12/31/2014 | | Results for this | | | e | 3:45 AM | | procedure are in the | | | | PDT | | results section. | + +--------+ + + + | AMMONIA | Routin | 12/31/2014 | | Results for this | | | e | 3:45 AM | | procedure are in the | | | | PDT | | results section. | + +--------+ + + + | HEPATIC FUNCTION | Routin | 12/31/2014 | | Results for this | | PANEL | e | 3:45 AM | | procedure are in the | | | | PDT | | results section. | + +--------+ + + + | BASIC METABOLIC | Routin | 12/31/2014 | | Results for this | | PANEL | e | 3:45 AM | | procedure are in the | | | | PDT | | results section. | + +--------+ + + + | POC GLUCOSE | Routin | 12/31/2014 | | Results for this | | | e | 1:16 AM | | procedure are in the | | | | PDT | | results section. | + +--------+ + + + | GRAM STAIN, REFLEX | Timed | 12/31/2014 | | Results for this | | SPUTUM CULTURE | | 1:00 AM | | procedure are in the | | | | PDT | | results section. | + +--------+ + + + | TROPONIN I | Routin | 12/31/2014 | | Results for this | | | e | 12:46 AM | | procedure are in the | | | | PDT | | results section. | + +--------+ + + + | CK-MB | Routin | 12/31/2014 | | Results for this | | | e | 12:46 AM | | procedure are in the | | | | PDT | | results section. | + +--------+ + + + | CK TOTAL | Routin | 12/31/2014 | | Results for this | | | e | 12:46 AM | | procedure are in the | | | | PDT | | results section. | + +--------+ + + + | MRSA NAAT | Timed | 12/31/2014 | | Results for this | | | | 12:23 AM | | procedure are in the | | | | PDT | | results section. | + +--------+ + + + | XR CHEST 1 VIEW | Routin | 12/31/2014 | | Results for this | | | e | 12:18 AM | | procedure are in the | | | | PDT | | results section. | + +--------+ + + + | HISTORICAL | Timed | 12/30/2014 | | Results for this | | MICROBIOLOGY RESULT | | 11:25 PM | | procedure are in the | | | | PDT | | results section. | + +--------+ + + + | OVA AND PARASITE | Timed | 12/30/2014 | | Results for this | | EXAMINATION | | 11:25 PM | | procedure are in the | | | | PDT | | results section. | + +--------+ + + + | ROTAVIRUS ANTIGEN, | Timed | 12/30/2014 | | Results for this | | STOOL | | 11:25 PM | | procedure are in the | | | | PDT | | results section. | + +--------+ + + + | CULTURE, YERSINIA | Routin | 12/30/2014 | | Results for this | | STOOL | e | 11:24 PM | | procedure are in the | | | | PDT | | results section. | + +--------+ + + + | EXTERNAL LAB: CBC | Routin | 12/30/2014 | | Results for this | | | e | 11:22 PM | | procedure are in the | | | | PDT | | results section. | + +--------+ + + + | PATHOLOGY CONSULT | Routin | 12/30/2014 | | Results for this | | REQUEST | e | 11:22 PM | | procedure are in the | | | | PDT | | results section. | + +--------+ + + + | CULTURE, BLOOD, 2ND | Timed | 12/30/2014 | | Results for this | | SPECIMEN (NON-ORD) | | 11:21 PM | | procedure are in the | | | | PDT | | results section. | + +--------+ + + + | LACTIC ACID | Routin | 12/30/2014 | | Results for this | | | e | 11:20 PM | | procedure are in the | | | | PDT | | results section. | + +--------+ + + + | PROCALCITONIN, SERUM | Routin | 12/30/2014 | | Results for this | | | e | 10:20 PM | | procedure are in the | | | | PDT | | results section. | + +--------+ + + + | CULTURE, BLOOD | Timed | 12/30/2014 | | Results for this | | | | 10:20 PM | | procedure are in the | | | | PDT | | results section. | + +--------+ + + + | PTT | Routin | 12/30/2014 | | Results for this | | | e | 10:20 PM | | procedure are in the | | | | PDT | | results section. | + +--------+ + + + | PROTIME INR | Routin | 12/30/2014 | | Results for this | | | e | 10:20 PM | | procedure are in the | | | | PDT | | results section. | + +--------+ + + + | HEPATIC FUNCTION | Routin | 12/30/2014 | | Results for this | | PANEL | e | 10:20 PM | | procedure are in the | | | | PDT | | results section. | + +--------+ + + + | BASIC METABOLIC | Routin | 12/30/2014 | | Results for this | | PANEL | e | 10:20 PM | | procedure are in the | | | | PDT | | results section. | + +--------+ + + + | HISTORICAL | Timed | 12/30/2014 | | Results for this | | MICROBIOLOGY RESULT | | 10:10 PM | | procedure are in the | | | | PDT | | results section. | + +--------+ + + + | URINALYSIS, REFLEX | Routin | 12/30/2014 | | Results for this | | MICROSCOPIC AND/OR | e | 10:10 PM | | procedure are in the | | CULTURE | | PDT | | results section. | + +--------+ + + + | URINALYSIS, | Routin | 12/30/2014 | | Results for this | | MICROSCOPIC ONLY | e | 10:10 PM | | procedure are in the | | | | PDT | | results section. | + +--------+ + + + | CULTURE, CSF, SMEAR | Timed | 12/30/2014 | | Results for this | | | | 10:10 PM | | procedure are in the | | | | PDT | | results section. | + +--------+ + + + | CELL COUNT WITH | Timed | 12/30/2014 | | Results for this | | DIFFERENTIAL, CSF | | 10:10 PM | | procedure are in the | | | | PDT | | results section. | + +--------+ + + + | PROTEIN, CSF | Timed | 12/30/2014 | | Results for this | | | | 10:10 PM | | procedure are in the | | | | PDT | | results section. | + +--------+ + + + | GLUCOSE, CSF | Timed | 12/30/2014 | | Results for this | | | | 10:10 PM | | procedure are in the | | | | PDT | | results section. | + +--------+ + + + | XR CHEST 1 VIEW | Routin | 12/30/2014 | | Results for this | | | e | 9:19 PM | | procedure are in the | | | | PDT | | results section. | + +--------+ + + + | ECG 12 LEAD | Routin | 12/30/2014 | | Results for this | | | e | 1:57 AM | | procedure are in the | | | | PDT | | results section. | + +--------+ + + + documented in this encounter Results POC Glucose (01/05/2015 11:28 AM PDT) + + + + + + | Component | Value | Ref Range | Performed | Pathologist | | | | | At | Signature | + + + + + + | Glucose, | 117 (H)Comment: Testing | 65 - 99 mg/dL | EXTERNAL | | | Fingerstick | performed at [facility];[address] | | LAB | | | [address];[place] | | | | | | [address] | | | | + + + + + + + + | Specimen | + + | | + + + +---------+ + + | Performing | Address | City/State/Zipcode | Phone Number | | Organization | | | | + +---------+ + + | EXTERNAL LAB | | | | + +---------+ + + POC Glucose (01/05/2015 5:19 AM PDT) + + + + + + | Component | Value | Ref Range | Performed | Pathologist | | | | | At | Signature | + + + + + + | Glucose, | 91Comment: Testing | 65 - 99 mg/dL | EXTERNAL | | | Fingerstick | performed at [facility];[address] | | LAB | | | | [address];[place] | | | | | | [address] | | | | + + + + + + + + | Specimen | + + | | + + + +---------+ + + | Performing | Address | City/State/Zipcode | Phone Number | | Organization | | | | + +---------+ + + | EXTERNAL LAB | | | | + +---------+ + + External Lab: CBC (01/05/2015 4:40 AM PDT) + + + + + + | Component | Value | Ref Range | Performed | Pathologist | | | | | At | Signature | + + + + + + | WBC | 9.08Comment: Testing | 3.80 - 11.00 | EXTERNAL | | | | performed at [facility], [address] | [address] | LAB | | | | [address], | | | | | | [place] [address] | | | | + + + + + + | Non- | 3.19 (L)Comment: Testing | 3.70 - 5.10 | EXTERNAL | | | Red Blood | performed at [facility], [address] | [address] | LAB | | | Cells | [address], | | | | | Counted | [place] [address] | | | | + + + + + + | Hemoglobin | 8.5 (L)Comment: Testing | 11.3 - 15.5 | EXTERNAL | | | | performed at [facility], [address] | g/dL | LAB | | | | [address], | | | | | | [place] [address] | | | | + + + + + + | Hematocrit, | 26.0 (L)Comment: Testing | 34.0 - 46.0 % | EXTERNAL | | | POC | performed at [facility], [address] | | LAB | | | | [address], | | | | | | [place] [address] | | | | + + + + + + | MCV | 81.4Comment: Testing | 80.0 - 100.0 fl | EXTERNAL | | | | performed at [facility], [address] | | LAB | | | | [address], | | | | | | [place] [address] | | | | + + + + + + | MCH | 26.5 (L)Comment: Testing | 27.0 - 34.0 pg | EXTERNAL | | | | performed at [facility], [address] | | LAB | | | | [address], | | | | | | [place] [address] | | | | + + + + + + | MCHC | 32.6Comment: Testing | 32.0 - 35.5 | EXTERNAL | | | | performed at [facility], [address] | g/dL | LAB | | | | [address], | | | | | | [place] [address] | | | | + + + + + + | RDW-CV | 39.8Comment: Testing | 37 - 53 fl | EXTERNAL | | | | performed at [facility], [address] | | LAB | | | | [address], | | | | | | [place] [address] | | | | + + + + + + | Platelet | 119 (L)Comment: Testing | 150 - 400 K/uL | EXTERNAL | | | Count | performed at [facility], [address] | | LAB | | | Plasma | [address], | | | | | | [place] [address] | | | | + + + + + + | MPV | 9.7Comment: Testing | fl | EXTERNAL | | | | performed at [facility], [address] | | LAB | | | | [address], | | | | | | [place] [address] | | | | + + + + + + | Differentia | MANUALComment: Testing | | EXTERNAL | | | l Type | performed at [facility], [address] | | LAB | | | | [address], | | | | | | [place], [place] [address] | | | | + + + + + + | Segmented | 60Comment: Testing | % | EXTERNAL | | | Neutrophils | performed at [facility], [address] | | LAB | | | Manual | [address], | | | | | | [place], [place] [address] | | | | + + + + + + | % Bands | 8Comment: Testing | % | EXTERNAL | | | | performed at [facility], [address] | | LAB | | | | [address], | | | | | | [place], [place] [address] | | | | + + + + + + | Lymphocytes | 21Comment: Testing | % | EXTERNAL | | | Manual | performed at [facility], [address] | | LAB | | | | [address], | | | | | | [place] [address] | | | | + + + + + + | Monocytes | 10Comment: Testing | % | EXTERNAL | | | Manual | performed at [facility], [address] | | LAB | | | | [address], | | | | | | [place] [address] | | | | + + + + + + | Eosinophils | 1Comment: Testing | % | EXTERNAL | | | Manual | performed at [facility], [address] | | LAB | | | | [address], | | | | | | [place] [address] | | | | + + + + + + | Absolute | 5.44Comment: Testing | 1.90 - 7.40 | EXTERNAL | | | Neutrophils | performed at [facility], [address] | K/uL | LAB | | | | [address], | | | | | | [place] [address] | | | | + + + + + + | Bands | 0.73 (H)Comment: Testing | 0.00 - 0.20 | EXTERNAL | | | Manual | performed at [facility], [address] | [address] | LAB | | | | [address], | | | | | | [place] [address] | | | | + + + + + + | Absolute | 1.91Comment: Testing | 1.00 - 3.90 | EXTERNAL | | | Lymphocytes | performed at [facility], [address] | K/uL | LAB | | | | [address], | | | | | | [place] [address] | | | | + + + + + + | Absolute | 0.91 (H)Comment: Testing | 0.00 - 0.80 | EXTERNAL | | | Monocytes | performed at [facility], [address] | [address] | LAB | | | | [address], | | | | | | [place] [address] | | | | + + + + + + | Absolute | 0.09Comment: Testing | 0.00 - 0.50 | EXTERNAL | | | Eosinophils | performed at [facility], [address] | K[address] | LAB | | | | [address], | | | | | | [place] [address] | | | | + + + + + + | Platelet | DECREASEDComment: | | EXTERNAL | | | Estimate | Testing performed at | | LAB | | | | [facility], [address] [facility] | | | | | | [place], [place] | | | | | | [address] | | | | + + + + + + | RBC | NORMAL PLT MORPHComment: | | EXTERNAL | | | Morphology | NORMAL RBC MORPHTesting | | LAB | | | | performed at [facility], [address] | | | | | | [address], | | | | | | [place] [address] | | | | + + + + + + + + | Specimen | + + | Blood specimen | | (specimen) | + + + +---------+ + + | Performing | Address | City/State/Zipcode | Phone Number | | Organization | | | | + +---------+ + + | EXTERNAL LAB | | | | + +---------+ + + Phosphorus (01/05/2015 4:40 AM PDT) + + + + + + | Component | Value | Ref Range | Performed | Pathologist | | | | | At | Signature | + + + + + + | PHOSPHORUS | 2.5Comment: Testing | 2.3 - 4.8 mg/dL | EXTERNAL | | | | performed at [facility];[address] | | LAB | | | | [address];[place], [place] | | | | | | [address] | | | | + + + + + + + + | Specimen | + + | Blood specimen | | (specimen) | + + + +---------+ + + | Performing | Address | City/State/Zipcode | Phone Number | | Organization | | | | + +---------+ + + | EXTERNAL LAB | | | | + +---------+ + + Magnesium (01/05/2015 4:40 AM PDT) + + + + + + | Component | Value | Ref Range | Performed | Pathologist | | | | | At | Signature | + + + + + + | Magnesium | 1.7Comment: Testing | 1.7 - 2.4 mg/dL | EXTERNAL | | | | performed at [facility];[address] | | LAB | | | | [address];[place] | | | | | | [address] | | | | + + + + + + + + | Specimen | + + | Blood specimen | | (specimen) | + + + +---------+ + + | Performing | Address | City/State/Zipcode | Phone Number | | Organization | | | | + +---------+ + + | EXTERNAL LAB | | | | + +---------+ + + CK Total (01/05/2015 4:40 AM PDT) + + + + + + | Component | Value | Ref Range | Performed | Pathologist | | | | | At | Signature | + + + + + + | CK, Total | 322 (H)Comment: Testing | 30 - 240 U/L | EXTERNAL | | | | performed at [facility];[address] | | LAB | | | | [address];[place], [place] | | | | | | [address] | | | | + + + + + + + + | Specimen | + + | Blood specimen | | (specimen) | + + + +---------+ + + | Performing | Address | City/State/Zipcode | Phone Number | | Organization | | | | + +---------+ + + | EXTERNAL LAB | | | | + +---------+ + + Hepatic Function Panel (01/05/2015 4:40 AM PDT) + + + + + + | Component | Value | Ref Range | Performed | Pathologist | | | | | At | Signature | + + + + + + | Protein, | 5.7 (L)Comment: Testing | 6.3 - 8.2 g/dL | EXTERNAL | | | Total | performed at [facility];[address] | | LAB | | | | [address];[place] | | | | | | [address] | | | | + + + + + + | Albumin | 2.8 (L)Comment: Testing | 3.3 - 4.8 g/dL | EXTERNAL | | | | performed at [facility];[address] | | LAB | | | | [address];[place] | | | | | | [address] | | | | + + + + + + | Bilirubin | 1.8 (H)Comment: Testing | 0.1 - 1.5 mg/dL | EXTERNAL | | | Total | performed at [facility];[address] | | LAB | | | | [address];[place] | | | | | | [address] | | | | + + + + + + | Bilirubin | 0.3Comment: Testing | 0.0 - 0.3 mg/dL | EXTERNAL | | | Direct | performed at [facility];[address] | | LAB | | | | [address];[place] | | | | | | [address] | | | | + + + + + + | ALP, | 113Comment: Testing | 35 - 115 U/L | EXTERNAL | | | External | performed at [facility];[address] | | LAB | | | | [address];[place] | | | | | | [address] | | | | + + + + + + | AST | 77 (H)Comment: Testing | 10 - 45 U/L | EXTERNAL | | | | performed at [facility];[address] | | LAB | | | | [address];[place] | | | | | | [address] | | | | + + + + + + | ALT | 136 (H)Comment: Testing | 10 - 65 U/L | EXTERNAL | | | | performed at [facility];[address] | | LAB | | | | [address];[place] | | | | | | [address] | | | | + + + + + + + + | Specimen | + + | | + + + +---------+ + + | Performing | Address | City/State/Zipcode | Phone Number | | Organization | | | | + +---------+ + + | EXTERNAL LAB | | | | + +---------+ + + Basic Metabolic Panel (01/05/2015 4:40 AM PDT) + + + + + + | Component | Value | Ref Range | Performed | Pathologist | | | | | At | Signature | + + + + + + | Na | 139Comment: Testing | 135 - 143 | EXTERNAL | | | | performed at [facility];[address] | mmol/L | LAB | | | | [address];[place] | | | | | | [address] | | | | + + + + + + | K | 3.8Comment: Testing | 3.5 - 4.9 | EXTERNAL | | | | performed at [facility];[address] | mmol/L | LAB | | | | [address];[place] | | | | | | [address] | | | | + + + + + + | Cl | 103Comment: Testing | 99 - 109 mmol/L | EXTERNAL | | | | performed at [facility];[address] | | LAB | | | | [address];[place] | | | | | | [address] | | | | + + + + + + | CO2 | 29Comment: Testing | 23 - 32 mmol/L | EXTERNAL | | | | performed at [facility];[address] | | LAB | | | | [address];[place] | | | | | | [address] | | | | + + + + + + | Anion Gap | 12Comment: Testing | 5 - 20 mmol/L | EXTERNAL | | | | performed at [facility];[address] | | LAB | | | | [address];[place] | | | | | | [address] | | | | + + + + + + | Glucose, | 93Comment: Testing | 65 - 99 mg/dL | EXTERNAL | | | Fasting | performed at [facility];[address] | | LAB | | | | [address];[place] | | | | | | [address] | | | | + + + + + + | BUN | 13Comment: Testing | 8 - 25 mg/dL | EXTERNAL | | | | performed at [facility];[address] | | LAB | | | | [address];[place] | | | | | | [address] | | | | + + + + + + | Creatinine | 1.06 (H)Comment: Testing | 0.50 - 1.00 | EXTERNAL | | | | performed at [facility];[address] | mg/dL | LAB | | | | [address];[place] | | | | | | [address] | | | | + + + + + + | BUN/Creatin | 12Comment: Testing | | EXTERNAL | | | ine Ratio | performed at [facility];[address] | | LAB | | | | [address];[place] | | | | | | [address] | | | | + + + + + + | Calcium | 9.0Comment: Testing | 8.5 - 10.5 | EXTERNAL | | | | performed at [facility];[address] | mg/dL | LAB | | | | [address];[place] | | | | | | [address] | | | | + + + + + + | Estimated | 55 (L)Comment: GFR <60: | mL/min/1.73m2 | EXTERNAL | | | GFR | CHRONIC KIDNEY DISEASE, | | LAB | | | | IF FOUND OVER A 3 MONTH | | | | | | PERIOD.GFR <15: KIDNEY | | | | | | FAILURE.FOR | | | | | | AMERICANS, MULTIPLY THE | | | | | | CALCULATED GFR BY | | | | | | 1.210.Testing performed | | | | | | at [facility];[address];[place] [address] | | | | + + + + + + + + | Specimen | + + | Blood specimen | | (specimen) | + + + +---------+ + + | Performing | Address | City/State/Zipcode | Phone Number | | Organization | | | | + +---------+ + + | EXTERNAL LAB | | | | + +---------+ + + POC Glucose (01/04/2015 9:23 PM PDT) + + + + + + | Component | Value | Ref Range | Performed | Pathologist | | | | | At | Signature | + + + + + + | Glucose, | 112 (H)Comment: Testing | 65 - 99 mg/dL | EXTERNAL | | | Fingerstick | performed at [facility];[address] | | LAB | | | | [address];[place] | | | | | | [address] | | | | + + + + + + + + | Specimen | + + | | + + + +---------+ + + | Performing | Address | City/State/Zipcode | Phone Number | | Organization | | | | + +---------+ + + | EXTERNAL LAB | | | | + +---------+ + + POC Glucose (01/04/2015 3:57 PM PDT) + + + + + + | Component | Value | Ref Range | Performed | Pathologist | | | | | At | Signature | + + + + + + | Glucose, | 133 (H)Comment: Testing | 65 - 99 mg/dL | EXTERNAL | | | Fingerstick | performed at [facility];[address] | | LAB | | | | [address];[place], [place] | | | | | | [address] | | | | + + + + + + + + | Specimen | + + | | + + + +---------+ + + | Performing | Address | City/State/Zipcode | Phone Number | | Organization | | | | + +---------+ + + | EXTERNAL LAB | | | | + +---------+ + + Potassium (01/04/2015 2:50 PM PDT) + + + + + + | Component | Value | Ref Range | Performed | Pathologist | | | | | At | Signature | + + + + + + | K | 3.9Comment: Testing | 3.5 - 4.9 | EXTERNAL | | | | performed at [facility];[address] | mmol/L | LAB | | | | [address];[place], [place] | | | | | | [address] | | | | + + + + + + + + | Specimen | + + | Blood specimen | | (specimen) | + + + +---------+ + + | Performing | Address | City/State/Zipcode | Phone Number | | Organization | | | | + +---------+ + + | EXTERNAL LAB | | | | + +---------+ + + POC Glucose (01/04/2015 11:14 AM PDT) + + + + + + | Component | Value | Ref Range | Performed | Pathologist | | | | | At | Signature | + + + + + + | Glucose, | 115 (H)Comment: Testing | 65 - 99 mg/dL | EXTERNAL | | | Fingerstick | performed at [facility];[address] | | LAB | | | | [address];[place], [place] | | | | | | [address] | | | | + + + + + + + + | Specimen | + + | | + + + +---------+ + + | Performing | Address | City/State/Zipcode | Phone Number | | Organization | | | | + +---------+ + + | EXTERNAL LAB | | | | + +---------+ + + Troponin I (01/04/2015 10:50 AM PDT) + + + + + + | Component | Value | Ref Range | Performed | Pathologist | | | | | At | Signature | + + + + + + | Troponin I, | 4.53 ()Comment: 0.00 | 0.00 - 0.10 | EXTERNAL | | | Qual | to 0.10 CONSISTENT | ng/mL | LAB | | | | WITH NORMAL | | | | | | POPULATION0.11 to 0.60 | | | | | | CONSISTENT WITH | | | | | | INCREASED RISK FOR | | | | | | ADVERSE OUTCOMES> 0.60 | | | | | | CONSISTENT | | | | | | WITH WHO CRITERIA FOR | | | | | | ACUTE UT RESULT READ | | | | | | BACK BY:WINSTON Morley AT 1207 | | | | | | BY AETesting performed | | | | | | at [facility];[address] [place] [address] | | | | | | [facility];[place] [address] | | | | + + + + + + + + | Specimen | + + | Blood specimen | | (specimen) | + + + +---------+ + + | Performing | Address | City/State/Zipcode | Phone Number | | Organization | | | | + +---------+ + + | EXTERNAL LAB | | | | + +---------+ + + POC Glucose (01/04/2015 5:20 AM PDT) + + + + + + | Component | Value | Ref Range | Performed | Pathologist | | | | | At | Signature | + + + + + + | Glucose, | 88Comment: Testing | 65 - 99 mg/dL | EXTERNAL | | | Fingerstick | performed at [facility];[address] | | LAB | | | | [address];[place], [place] | | | | | | [address] | | | | + + + + + + + + | Specimen | + + | | + + + +---------+ + + | Performing | Address | City/State/Zipcode | Phone Number | | Organization | | | | + +---------+ + + | EXTERNAL LAB | | | | + +---------+ + + Troponin I (01/04/2015 4:12 AM PDT) + + + + + + | Component | Value | Ref Range | Performed | Pathologist | | | | | At | Signature | + + + + + + | Troponin I, | 6.01 ()Comment: 0.00 | 0.00 - 0.10 | EXTERNAL | | | Qual | to 0.10 CONSISTENT | ng/mL | LAB | | | | WITH NORMAL | | | | | | POPULATION0.11 to 0.60 | | | | | | CONSISTENT WITH | | | | | | INCREASED RISK FOR | | | | | | ADVERSE OUTCOMES> 0.60 | | | | | | CONSISTENT | | | | | | WITH WHO CRITERIA FOR | | | | | | ACUTE UT RESULTS CALLED | | | | | | TO AMITA SAN @0511T | | | | | | BY TLSREAD BACK RESULTS | | | | | | VERIFIEDTesting | | | | | | performed at [facility] | | | | | | [facility];[place], [place] | | | | | | [address] | | | | + + + + + + + + | Specimen | + + | Blood specimen | | (specimen) | + + + +---------+ + + | Performing | Address | City/State/Zipcode | Phone Number | | Organization | | | | + +---------+ + + | EXTERNAL LAB | | | | + +---------+ + + External Lab: CBC (01/04/2015 4:12 AM PDT) + + + + + + | Component | Value | Ref Range | Performed | Pathologist | | | | | At | Signature | + + + + + + | WBC | 9.04Comment: Testing | 3.80 - 11.00 | EXTERNAL | | | | performed at [facility], [address] | K/uL | LAB | | | | [address], | | | | | | [place] [address] | | | | + + + + + + | Non- | 2.93 (L)Comment: Testing | 3.70 - 5.10 | EXTERNAL | | | Red Blood | performed at [facility], [address] | M/uL | LAB | | | Cells | [address], | | | | | Counted | [place] [address] | | | | + + + + + + | Hemoglobin | 7.8 (L)Comment: Testing | 11.3 - 15.5 | EXTERNAL | | | | performed at [facility], [address] | g/dL | LAB | | | | [address], | | | | | | [place] [address] | | | | + + + + + + | Hematocrit, | 23.7 (L)Comment: Testing | 34.0 - 46.0 % | EXTERNAL | | | POC | performed at [facility], [address] | | LAB | | | | [address], | | | | | | [place] [address] | | | | + + + + + + | MCV | 81.0Comment: Testing | 80.0 - 100.0 fl | EXTERNAL | | | | performed at [facility], [address] | | LAB | | | | [address], | | | | | | [place] [address] | | | | + + + + + + | MCH | 26.8 (L)Comment: Testing | 27.0 - 34.0 pg | EXTERNAL | | | | performed at [facility], [address] | | LAB | | | | [address], | | | | | | [place] [address] | | | | + + + + + + | MCHC | 33.1Comment: Testing | 32.0 - 35.5 | EXTERNAL | | | | performed at [facility], [address] | g/dL | LAB | | | | [address], | | | | | | [place] [address] | | | | + + + + + + | RDW-CV | 39.4Comment: Testing | 37 - 53 fl | EXTERNAL | | | | performed at [facility], [address] | | LAB | | | | [address], | | | | | | [place] [address] | | | | + + + + + + | Platelet | 65 (L)Comment: Testing | 150 - 400 K/uL | EXTERNAL | | | Count | performed at [facility], [address] | | LAB | | | Plasma | [address], | | | | | | [place], [place] [address] | | | | + + + + + + | MPV | 9.0Comment: Testing | fl | EXTERNAL | | | | performed at [facility], [address] | | LAB | | | | [address], | | | | | | [place], [place] [address] | | | | + + + + + + | Differentia | MANUALComment: Testing | | EXTERNAL | | | l Type | performed at [facility], [address] | | LAB | | | | [address], | | | | | | [place], [place] [address] | | | | + + + + + + | Segmented | 60Comment: Testing | % | EXTERNAL | | | Neutrophils | performed at [facility], [address] | | LAB | | | Manual | [address], | | | | | | [place] [address] | | | | + + + + + + | % Bands | 8Comment: Testing | % | EXTERNAL | | | | performed at [facility], [address] | | LAB | | | | [address], | | | | | | [place] [address] | | | | + + + + + + | Lymphocytes | 22Comment: Testing | % | EXTERNAL | | | Manual | performed at [facility], [address] | | LAB | | | | [address], | | | | | | [place] [address] | | | | + + + + + + | Monocytes | 10Comment: Testing | % | EXTERNAL | | | Manual | performed at [facility], [address] | | LAB | | | | [address], | | | | | | [place] [address] | | | | + + + + + + | Absolute | 5.43Comment: Testing | 1.90 - 7.40 | EXTERNAL | | | Neutrophils | performed at [facility], [address] | [address] | LAB | | | | [address], | | | | | | [place] [address] | | | | + + + + + + | Bands | 0.72 (H)Comment: Testing | 0.00 - 0.20 | EXTERNAL | | | Manual | performed at [facility], [address] | [address] | LAB | | | | [address], | | | | | | [place] [address] | | | | + + + + + + | Absolute | 1.99Comment: Testing | 1.00 - 3.90 | EXTERNAL | | | Lymphocytes | performed at [facility], [address] | [address] | LAB | | | | [address], | | | | | | [place] [address] | | | | + + + + + + | Absolute | 0.90 (H)Comment: Testing | 0.00 - 0.80 | EXTERNAL | | | Monocytes | performed at [facility], [address] | [address] | LAB | | | | [address], | | | | | | [place] [address] | | | | + + + + + + | RBC | RBC AND PLT MORPHOLOGY | | EXTERNAL | | | Morphology | APPEAR NORMALComment: | | LAB | | | | Testing performed at | | | | | | [facility], [address] [facility] | | | | | | [place] | | | | | | [address] | | | | + + + + + + + + | Specimen | + + | Blood specimen | | (specimen) | + + + +---------+ + + | Performing | Address | City/State/Zipcode | Phone Number | | Organization | | | | + +---------+ + + | EXTERNAL LAB | | | | + +---------+ + + Phosphorus (01/04/2015 4:12 AM PDT) + + + + + + | Component | Value | Ref Range | Performed | Pathologist | | | | | At | Signature | + + + + + + | PHOSPHORUS | 2.9Comment: Testing | 2.3 - 4.8 mg/dL | EXTERNAL | | | | performed at [facility];[address] | | LAB | | | | [address];[place], [place] | | | | | | [address] | | | | + + + + + + + + | Specimen | + + | Blood specimen | | (specimen) | + + + +---------+ + + | Performing | Address | City/State/Zipcode | Phone Number | | Organization | | | | + +---------+ + + | EXTERNAL LAB | | | | + +---------+ + + Magnesium (01/04/2015 4:12 AM PDT) + + + + + + | Component | Value | Ref Range | Performed | Pathologist | | | | | At | Signature | + + + + + + | Magnesium | 1.8Comment: Testing | 1.7 - 2.4 mg/dL | EXTERNAL | | | | performed at [facility];[address] | | LAB | | | | [address];[place] | | | | | | [address] | | | | + + + + + + + + | Specimen | + + | Blood specimen | | (specimen) | + + + +---------+ + + | Performing | Address | City/State/Zipcode | Phone Number | | Organization | | | | + +---------+ + + | EXTERNAL LAB | | | | + +---------+ + + CK Total (01/04/2015 4:12 AM PDT) + + + + + + | Component | Value | Ref Range | Performed | Pathologist | | | | | At | Signature | + + + + + + | CK, Total | 434 (H)Comment: Testing | 30 - 240 U/L | EXTERNAL | | | | performed at [facility];[address] | | LAB | | | | [address] [facility];[place], [place] | | | | | | [address] | | | | + + + + + + + + | Specimen | + + | Blood specimen | | (specimen) | + + + +---------+ + + | Performing | Address | City/State/Zipcode | Phone Number | | Organization | | | | + +---------+ + + | EXTERNAL LAB | | | | + +---------+ + + Hepatic Function Panel (01/04/2015 4:12 AM PDT) + + + + + + | Component | Value | Ref Range | Performed | Pathologist | | | | | At | Signature | + + + + + + | Protein, | 5.4 (L)Comment: Testing | 6.3 - 8.2 g/dL | EXTERNAL | | | Total | performed at [facility];[address] | | LAB | | | | [address];[place] | | | | | | [address] | | | | + + + + + + | Albumin | 2.7 (L)Comment: Testing | 3.3 - 4.8 g/dL | EXTERNAL | | | | performed at [facility];[address] | | LAB | | | | [address];[place] | | | | | | [address] | | | | + + + + + + | Bilirubin | 1.5Comment: Testing | 0.1 - 1.5 mg/dL | EXTERNAL | | | Total | performed at [facility];[address] | | LAB | | | | [address];[place] | | | | | | [address] | | | | + + + + + + | Bilirubin | 0.4 (H)Comment: Testing | 0.0 - 0.3 mg/dL | EXTERNAL | | | Direct | performed at [facility];[address] | | LAB | | | | [address];[place] | | | | | | [address] | | | | + + + + + + | ALP, | 114Comment: Testing | 35 - 115 U/L | EXTERNAL | | | External | performed at [facility];[address] | | LAB | | | | [address];[place] | | | | | | [address] | | | | + + + + + + | AST | 115 (H)Comment: Testing | 10 - 45 U/L | EXTERNAL | | | | performed at [facility];[address] | | LAB | | | | [address];[place] | | | | | | [address] | | | | + + + + + + | ALT | 167 (H)Comment: Testing | 10 - 65 U/L | EXTERNAL | | | | performed at [facility];[address] | | LAB | | | | [address];[place] | | | | | | [address] | | | | + + + + + + + + | Specimen | + + | | + + + +---------+ + + | Performing | Address | City/State/Zipcode | Phone Number | | Organization | | | | + +---------+ + + | EXTERNAL LAB | | | | + +---------+ + + Basic Metabolic Panel (01/04/2015 4:12 AM PDT) + + + + + + | Component | Value | Ref Range | Performed | Pathologist | | | | | At | Signature | + + + + + + | Na | 140Comment: Testing | 135 - 143 | EXTERNAL | | | | performed at [facility];[address] | mmol/L | LAB | | | | [address];[place] | | | | | | [address] | | | | + + + + + + | K | 3.3 (L)Comment: Testing | 3.5 - 4.9 | EXTERNAL | | | | performed at [facility];[address] | mmol/L | LAB | | | | [address];[place] | | | | | | [address] | | | | + + + + + + | Cl | 105Comment: Testing | 99 - 109 mmol/L | EXTERNAL | | | | performed at [facility];[address] | | LAB | | | | [address];[place] | | | | | | [address] | | | | + + + + + + | CO2 | 29Comment: Testing | 23 - 32 mmol/L | EXTERNAL | | | | performed at [facility];[address] | | LAB | | | | [address];[place] | | | | | | [address] | | | | + + + + + + | Anion Gap | 10Comment: Testing | 5 - 20 mmol/L | EXTERNAL | | | | performed at [facility];[address] | | LAB | | | | [address];[place] | | | | | | [address] | | | | + + + + + + | Glucose, | 95Comment: Testing | 65 - 99 mg/dL | EXTERNAL | | | Fasting | performed at [facility];[address] | | LAB | | | | [address];[place] | | | | | | [address] | | | | + + + + + + | BUN | 19Comment: Testing | 8 - 25 mg/dL | EXTERNAL | | | | performed at [facility];[address] | | LAB | | | | [address];[place] | | | | | | [address] | | | | + + + + + + | Creatinine | 1.17 (H)Comment: Testing | 0.50 - 1.00 | EXTERNAL | | | | performed at [facility];[address] | mg/dL | LAB | | | | [address];[place] | | | | | | [address] | | | | + + + + + + | BUN/Creatin | 17Comment: Testing | | EXTERNAL | | | ine Ratio | performed at [facility];[address] | | LAB | | | | [address];[place] | | | | | | [address] | | | | + + + + + + | Calcium | 8.1 (L)Comment: Testing | 8.5 - 10.5 | EXTERNAL | | | | performed at [facility];[address] | mg/dL | LAB | | | | [address];[place] | | | | | | [address] | | | | + + + + + + | Estimated | 49 (L)Comment: GFR <60: | mL/min/1.73m2 | EXTERNAL | | | GFR | CHRONIC KIDNEY DISEASE, | | LAB | | | | IF FOUND OVER A 3 MONTH | | | | | | PERIOD.GFR <15: KIDNEY | | | | | | FAILURE.FOR | | | | | | AMERICANS, MULTIPLY THE | | | | | | CALCULATED GFR BY | | | | | | 1.210.Testing performed | | | | | | at [facility];[address];[place] [address] | | | | + + + + + + + + | Specimen | + + | Blood specimen | | (specimen) | + + + +---------+ + + | Performing | Address | City/State/Zipcode | Phone Number | | Organization | | | | + +---------+ + + | EXTERNAL LAB | | | | + +---------+ + + POC Glucose (01/03/2015 9:09 PM PDT) + + + + + + | Component | Value | Ref Range | Performed | Pathologist | | | | | At | Signature | + + + + + + | Glucose, | 130 (H)Comment: Testing | 65 - 99 mg/dL | EXTERNAL | | | Fingerstick | performed at [facility];[address] | | LAB | | | | [address];[place] | | | | | | [address] | | | | + + + + + + + + | Specimen | + + | | + + + +---------+ + + | Performing | Address | City/State/Zipcode | Phone Number | | Organization | | | | + +---------+ + + | EXTERNAL LAB | | | | + +---------+ + + Potassium (01/03/2015 8:45 PM PDT) + + + + + + | Component | Value | Ref Range | Performed | Pathologist | | | | | At | Signature | + + + + + + | K | 3.1 (L)Comment: Testing | 3.5 - 4.9 | EXTERNAL | | | | performed at [facility];[address] | mmol/L | LAB | | | | [address];[place], [place] | | | | | | [address] | | | | + + + + + + + + | Specimen | + + | Blood specimen | | (specimen) | + + + +---------+ + + | Performing | Address | City/State/Zipcode | Phone Number | | Organization | | | | + +---------+ + + | EXTERNAL LAB | | | | + +---------+ + + Phosphorus (01/03/2015 8:45 PM PDT) + + + + + + | Component | Value | Ref Range | Performed | Pathologist | | | | | At | Signature | + + + + + + | PHOSPHORUS | 1.8 (L)Comment: Testing | 2.3 - 4.8 mg/dL | EXTERNAL | | | | performed at [facility];[address] | | LAB | | | | [address];[place] | | | | | | [address] | | | | + + + + + + + + | Specimen | + + | Blood specimen | | (specimen) | + + + +---------+ + + | Performing | Address | City/State/Zipcode | Phone Number | | Organization | | | | + +---------+ + + | EXTERNAL LAB | | | | + +---------+ + + POC Glucose (01/03/2015 4:20 PM PDT) + + + + + + | Component | Value | Ref Range | Performed | Pathologist | | | | | At | Signature | + + + + + + | Glucose, | 195 (H)Comment: Testing | 65 - 99 mg/dL | EXTERNAL | | | Fingerstick | performed at [facility];[address] | | LAB | | | | [address];[place] | | | | | | [address] | | | | + + + + + + + + | Specimen | + + | | + + + +---------+ + + | Performing | Address | City/State/Zipcode | Phone Number | | Organization | | | | + +---------+ + + | EXTERNAL LAB | | | | + +---------+ + + POC Glucose (01/03/2015 11:25 AM PDT) + + + + + + | Component | Value | Ref Range | Performed | Pathologist | | | | | At | Signature | + + + + + + | Glucose, | 101 (H)Comment: Testing | 65 - 99 mg/dL | EXTERNAL | | | Fingerstick | performed at [facility];[address] | | LAB | | | | [address];[place] | | | | | | [address] | | | | + + + + + + + + | Specimen | + + | | + + + +---------+ + + | Performing | Address | City/State/Zipcode | Phone Number | | Organization | | | | + +---------+ + + | EXTERNAL LAB | | | | + +---------+ + + POC Glucose (01/03/2015 5:17 AM PDT) + + + + + + | Component | Value | Ref Range | Performed | Pathologist | | | | | At | Signature | + + + + + + | Glucose, | 96Comment: Testing | 65 - 99 mg/dL | EXTERNAL | | | Fingerstick | performed at [facility];[address] | | LAB | | | | [address];[place], [place] | | | | | | [address] | | | | + + + + + + + + | Specimen | + + | | + + + +---------+ + + | Performing | Address | City/State/Zipcode | Phone Number | | Organization | | | | + +---------+ + + | EXTERNAL LAB | | | | + +---------+ + + Iron and Iron Binding Capacity (01/03/2015 4:38 AM PDT) + + + + + + | Component | Value | Ref Range | Performed | Pathologist | | | | | At | Signature | + + + + + + | Iron | 40Comment: Testing | 30 - 180 ug/dL | EXTERNAL | | | | performed at [facility], [address] | | LAB | | | | [place], | | | | | | [place] [address] | | | | + + + + + + | TIBC | 177 (L)Comment: Testing | 260 - 490 ug/dL | EXTERNAL | | | | performed at [facility], [address] | | LAB | | | | [address], | | | | | | [place] [address] | | | | + + + + + + | Iron | 23Comment: Testing | 15 - 50 % | EXTERNAL | | | Saturation | performed at [facility], [address] | | LAB | | | | [address], | | | | | | [place] [address] | | | | + + + + + + + + | Specimen | + + | Blood specimen | | (specimen) | + + + +---------+ + + | Performing | Address | City/State/Zipcode | Phone Number | | Organization | | | | + +---------+ + + | EXTERNAL LAB | | | | + +---------+ + + Folate (01/03/2015 4:38 AM PDT) + + + + + + | Component | Value | Ref Range | Performed | Pathologist | | | | | At | Signature | + + + + + + | Folate | >24.0Comment: Testing | ng/mL | EXTERNAL | | | | performed at [facility], [address] | | LAB | | | | [address], | | | | | | [place] [address] | | | | + + + + + + + + | Specimen | + + | Blood specimen | | (specimen) | + + + +---------+ + + | Performing | Address | City/State/Zipcode | Phone Number | | Organization | | | | + +---------+ + + | EXTERNAL LAB | | | | + +---------+ + + Ferritin (01/03/2015 4:38 AM PDT) + + + + + + | Component | Value | Ref Range | Performed | Pathologist | | | | | At | Signature | + + + + + + | Ferritin, | 419 (H)Comment: Testing | 6 - 250 ng/mL | EXTERNAL | | | External | performed at [facility], [address] | | LAB | | | | [address], | | | | | | [place] [address] | | | | + + + + + + + + | Specimen | + + | Blood specimen | | (specimen) | + + + +---------+ + + | Performing | Address | City/State/Zipcode | Phone Number | | Organization | | | | + +---------+ + + | EXTERNAL LAB | | | | + +---------+ + + Vitamin B-12 (01/03/2015 4:38 AM PDT) + + + + + + | Component | Value | Ref Range | Performed | Pathologist | | | | | At | Signature | + + + + + + | VITAMIN | 1,886 (H)Comment: | 254 - 1,320 | EXTERNAL | | | B-12 | Testing performed at | pg/mL | LAB | | | | [facility], [address] | | | | | | [place] | | | | | | [address] | | | | + + + + + + + + | Specimen | + + | Blood specimen | | (specimen) | + + + +---------+ + + | Performing | Address | City/State/Zipcode | Phone Number | | Organization | | | | + +---------+ + + | EXTERNAL LAB | | | | + +---------+ + + Troponin I (01/03/2015 4:08 AM PDT) + + + + + + | Component | Value | Ref Range | Performed | Pathologist | | | | | At | Signature | + + + + + + | Troponin I, | 5.86 ()Comment: 0.00 | 0.00 - 0.10 | EXTERNAL | | | Qual | to 0.10 CONSISTENT | ng/mL | LAB | | | | WITH NORMAL | | | | | | POPULATION0.11 to 0.60 | | | | | | CONSISTENT WITH | | | | | | INCREASED RISK FOR | | | | | | ADVERSE OUTCOMES> 0.60 | | | | | | CONSISTENT | | | | | | WITH WHO CRITERIA FOR | | | | | | ACUTE UT RESULTS CALLED | | | | | | TO WINSTON Morley/[facility] | | | | | | 1342T,JBREAD BACK | | | | | | RESULTS VERIFIEDTesting | | | | | | performed at [facility];[address] | | | | | | [address];[place], [place] | | | | | | [address] | | | | + + + + + + + + | Specimen | + + | Blood specimen | | (specimen) | + + + +---------+ + + | Performing | Address | City/State/Zipcode | Phone Number | | Organization | | | | + +---------+ + + | EXTERNAL LAB | | | | + +---------+ + + External Lab: CBC (01/03/2015 4:08 AM PDT) + + + + + + | Component | Value | Ref Range | Performed | Pathologist | | | | | At | Signature | + + + + + + | WBC | 12.44 (H)Comment: | 3.80 - 11.00 | EXTERNAL | | | | Testing performed at | K/uL | LAB | | | | [facility], [address] [facility] | | | | | | [place] | | | | | | [address] | | | | + + + + + + | Non- | 2.94 (L)Comment: Testing | 3.70 - 5.10 | EXTERNAL | | | Red Blood | performed at [facility], [address] | [address] | LAB | | | Cells | [address], | | | | | Counted | [place] [address] | | | | + + + + + + | Hemoglobin | 7.8 (L)Comment: Testing | 11.3 - 15.5 | EXTERNAL | | | | performed at [facility], [address] | g/dL | LAB | | | | [address], | | | | | | [place] [address] | | | | + + + + + + | Hematocrit, | 23.7 (L)Comment: Testing | 34.0 - 46.0 % | EXTERNAL | | | POC | performed at [facility], [address] | | LAB | | | | [address], | | | | | | [place] [address] | | | | + + + + + + | MCV | 80.6Comment: Testing | 80.0 - 100.0 fl | EXTERNAL | | | | performed at [facility], [address] | | LAB | | | | [address], | | | | | | [place] [address] | | | | + + + + + + | MCH | 26.5 (L)Comment: Testing | 27.0 - 34.0 pg | EXTERNAL | | | | performed at [facility], [address] | | LAB | | | | [address], | | | | | | [place] [address] | | | | + + + + + + | MCHC | 32.8Comment: Testing | 32.0 - 35.5 | EXTERNAL | | | | performed at [facility], [address] | g/dL | LAB | | | [address], | | | | | | [place] [address] | | | | + + + + + + | RDW-CV | 38.5Comment: Testing | 37 - 53 fl | EXTERNAL | | | | performed at [facility], [address] | | LAB | | | [address], | | | | | | [place] [address] | | | | + + + + + + | Platelet | 56 (L)Comment: Testing | 150 - 400 K/uL | EXTERNAL | | | Count | performed at [facility], [address] | | LAB | | | Plasma | [address], | | | | | | [place] [address] | | | | + + + + + + | MPV | 9.2Comment: Testing | fl | EXTERNAL | | | | performed at [facility], [address] | | LAB | | | | [address], | | | | | | [place] [address] | | | | + + + + + + | Differentia | MANUALComment: Testing | | EXTERNAL | | | l Type | performed at [facility], [address] | | LAB | | | | [address], | | | | | | [place] [address] | | | | + + + + + + | Segmented | 64Comment: Testing | % | EXTERNAL | | | Neutrophils | performed at [facility], [address] | | LAB | | | Manual | [address], | | | | | | [place], [place] [address] | | | | + + + + + + | % Bands | 5Comment: Testing | % | EXTERNAL | | | | performed at [facility], [address] | | LAB | | | | [address], | | | | | | [place] [address] | | | | + + + + + + | Lymphocytes | 23Comment: Testing | % | EXTERNAL | | | Manual | performed at [facility], [address] | | LAB | | | | [address], | | | | | | [place], [place] [address] | | | | + + + + + + | Monocytes | 8Comment: Testing | % | EXTERNAL | | | Manual | performed at [facility], [address] | | LAB | | | | [address], | | | | | | [place] [address] | | | | + + + + + + | Absolute | 7.96 (H)Comment: Testing | 1.90 - 7.40 | EXTERNAL | | | Neutrophils | performed at [facility], [address] | [address] | LAB | | | | [address], | | | | | | [place] [address] | | | | + + + + + + | Bands | 0.62 (H)Comment: Testing | 0.00 - 0.20 | EXTERNAL | | | Manual | performed at [facility], [address] | [address] | LAB | | | | [address], | | | | | | [place] [address] | | | | + + + + + + | Absolute | 2.86Comment: Testing | 1.00 - 3.90 | EXTERNAL | | | Lymphocytes | performed at [facility], [address] | [address] | LAB | | | [address], | | | | | | [place] [address] | | | | + + + + + + | Absolute | 1.00 (H)Comment: Testing | 0.00 - 0.80 | EXTERNAL | | | Monocytes | performed at [facility], [address] | [address] | LAB | | | | [address], | | | | | | [place] [address] | | | | + + + + + + | RBC | RBC AND PLT MORPHOLOGY | | EXTERNAL | | | Morphology | APPEAR NORMALComment: | | LAB | | | | Testing performed at | | | | | | [facility], [address] | | | | | | [place] | | | | | | [address] | | | | + + + + + + + + | Specimen | + + | Blood specimen | | (specimen) | + + + +---------+ + + | Performing | Address | City/State/Zipcode | Phone Number | | Organization | | | | + +---------+ + + | EXTERNAL LAB | | | | + +---------+ + + Phosphorus (01/03/2015 4:08 AM PDT) + + + + + + | Component | Value | Ref Range | Performed | Pathologist | | | | | At | Signature | + + + + + + | PHOSPHORUS | 1.3 (L)Comment: Testing | 2.3 - 4.8 mg/dL | EXTERNAL | | | | performed at [facility];[address] | | LAB | | | | [address];[place] | | | | | | [address] | | | | + + + + + + + + | Specimen | + + | Blood specimen | | (specimen) | + + + +---------+ + + | Performing | Address | City/State/Zipcode | Phone Number | | Organization | | | | + +---------+ + + | EXTERNAL LAB | | | | + +---------+ + + Magnesium (01/03/2015 4:08 AM PDT) + + + + + + | Component | Value | Ref Range | Performed | Pathologist | | | | | At | Signature | + + + + + + | Magnesium | 2.2Comment: Testing | 1.7 - 2.4 mg/dL | EXTERNAL | | | | performed at [facility];[address] | | LAB | | | | [address];[place], [place] | | | | | | [address] | | | | + + + + + + + + | Specimen | + + | Blood specimen | | (specimen) | + + + +---------+ + + | Performing | Address | City/State/Zipcode | Phone Number | | Organization | | | | + +---------+ + + | EXTERNAL LAB | | | | + +---------+ + + CK Total (01/03/2015 4:08 AM PDT) + + + + + + | Component | Value | Ref Range | Performed | Pathologist | | | | | At | Signature | + + + + + + | CK, Total | 908 (H)Comment: Testing | 30 - 240 U/L | EXTERNAL | | | | performed at [facility];[address] | | LAB | | | | [address];[place] | | | | | | [address] | | | | + + + + + + + + | Specimen | + + | | + + + +---------+ + + | Performing | Address | City/State/Zipcode | Phone Number | | Organization | | | | + +---------+ + + | EXTERNAL LAB | | | | + +---------+ + + Hepatic Function Panel (01/03/2015 4:08 AM PDT) + + + + + + | Component | Value | Ref Range | Performed | Pathologist | | | | | At | Signature | + + + + + + | Protein, | 5.8 (L)Comment: Testing | 6.3 - 8.2 g/dL | EXTERNAL | | | Total | performed at [facility];[address] | | LAB | | | | [address];[place] | | | | | | [address] | | | | + + + + + + | Albumin | 2.9 (L)Comment: Testing | 3.3 - 4.8 g/dL | EXTERNAL | | | | performed at [facility];[address] | | LAB | | | | [address];[place] | | | | | | [address] | | | | + + + + + + | Bilirubin | 2.0 (H)Comment: Testing | 0.1 - 1.5 mg/dL | EXTERNAL | | | Total | performed at [facility];[address] | | LAB | | | | [address];[place] | | | | | | [address] | | | | + + + + + + | Bilirubin | 0.3Comment: Testing | 0.0 - 0.3 mg/dL | EXTERNAL | | | Direct | performed at [facility];[address] | | LAB | | | | [address];[place] | | | | | | [address] | | | | + + + + + + | ALP, | 125 (H)Comment: Testing | 35 - 115 U/L | EXTERNAL | | | External | performed at [facility];[address] | | LAB | | | | [address];[place] | | | | | | [address] | | | | + + + + + + | AST | 187 (H)Comment: Testing | 10 - 45 U/L | EXTERNAL | | | | performed at [facility];[address] | | LAB | | | | [address];[place] | | | | | | [phone] | | | | + + + + + + | ALT | 209 (H)Comment: Testing | 10 - 65 U/L | EXTERNAL | | | | performed at [facility];[address] | | LAB | | | | [address];[place] | | | | | | [address] | | | | + + + + + + + + | Specimen | + + | | + + + +---------+ + + | Performing | Address | City/State/Zipcode | Phone Number | | Organization | | | | + +---------+ + + | EXTERNAL LAB | | | | + +---------+ + + Basic Metabolic Panel (01/03/2015 4:08 AM PDT) + + + + + + | Component | Value | Ref Range | Performed | Pathologist | | | | | At | Signature | + + + + + + | Na | 139Comment: Testing | 135 - 143 | EXTERNAL | | | | performed at [facility] | mmol/L | LAB | | | | [address];[place] | | | | | | [phone] | | | | + + + + + + | K | 2.9 (L)Comment: Testing | 3.5 - 4.9 | EXTERNAL | | | | performed at [facility];[address] | mmol/L | LAB | | | | [address];[place] | | | | | | [address] | | | | + + + + + + | Cl | 100Comment: Testing | 99 - 109 mmol/L | EXTERNAL | | | | performed at [facility];[address] | | LAB | | | | [address];[place] | | | | | | [address] | | | | + + + + + + | CO2 | 30Comment: Testing | 23 - 32 mmol/L | EXTERNAL | | | | performed at [facility];[address] | | LAB | | | | [address];[place] | | | | | | [address] | | | | + + + + + + | Anion Gap | 12Comment: Testing | 5 - 20 mmol/L | EXTERNAL | | | | performed at [facility];[address] | | LAB | | | | [address];[place] | | | | | | [address] | | | | + + + + + + | Glucose, | 78Comment: Testing | 65 - 99 mg/dL | EXTERNAL | | | Fasting | performed at [facility];[address] | | LAB | | | | [address];[place] | | | | | | [address] | | | | + + + + + + | BUN | 27 (H)Comment: Testing | 8 - 25 mg/dL | EXTERNAL | | | | performed at [facility];[address] | | LAB | | | | [address];[place] | | | | | | [address] | | | | + + + + + + | Creatinine | 1.51 (H)Comment: Testing | 0.50 - 1.00 | EXTERNAL | | | | performed at [facility];888 | mg/dL | LAB | | | | [address];[place] | | | | | | [address] | | | | + + + + + + | BUN/Creatin | 18Comment: Testing | | EXTERNAL | | | ine Ratio | performed at [facility];[address] | | LAB | | | | [address];[place] | | | | | | [address] | | | | + + + + + + | Calcium | 8.5Comment: Testing | 8.5 - 10.5 | EXTERNAL | | | | performed at [facility];888 | mg/dL | LAB | | | | [address];[place] | | | | | | [address] | | | | + + + + + + | Estimated | 36 (L)Comment: GFR <60: | mL/min/1.73m2 | EXTERNAL | | | GFR | CHRONIC KIDNEY DISEASE, | | LAB | | | | IF FOUND OVER A 3 MONTH | | | | | | PERIOD.GFR <15: KIDNEY | | | | | | FAILURE.FOR | | | | | | AMERICANS, MULTIPLY THE | | | | | | CALCULATED GFR BY | | | | | | 1.210.Testing performed | | | | | | at [facility];[address] | | | | | | [address];[place] [address] | | | | + + + + + + + + | Specimen | + + | Blood specimen | | (specimen) | + + + +---------+ + + | Performing | Address | City/State/Zipcode | Phone Number | | Organization | | | | + +---------+ + + | EXTERNAL LAB | | | | + +---------+ + + POC Glucose (01/02/2015 9:34 PM PDT) + + + + + + | Component | Value | Ref Range | Performed | Pathologist | | | | | At | Signature | + + + + + + | Glucose, | 113 (H)Comment: Testing | 65 - 99 mg/dL | EXTERNAL | | | Fingerstick | performed at [facility];[address] | | LAB | | | | [address];[place], [place] | | | | | | [address] | | | | + + + + + + + + | Specimen | + + | | + + + +---------+ + + | Performing | Address | City/State/Zipcode | Phone Number | | Organization | | | | + +---------+ + + | EXTERNAL LAB | | | | + +---------+ + + POC Glucose (01/02/2015 5:31 PM PDT) + + + + + + | Component | Value | Ref Range | Performed | Pathologist | | | | | At | Signature | + + + + + + | Glucose, | 153 (H)Comment: Testing | 65 - 99 mg/dL | EXTERNAL | | | Fingerstick | performed at [facility];[address] | | LAB | | | | [address];[place] | | | | | | [address] | | | | + + + + + + + + | Specimen | + + | | + + + +---------+ + + | Performing | Address | City/State/Zipcode | Phone Number | | Organization | | | | + +---------+ + + | EXTERNAL LAB | | | | + +---------+ + + POC Glucose (01/02/2015 11:18 AM PDT) + + + + + + | Component | Value | Ref Range | Performed | Pathologist | | | | | At | Signature | + + + + + + | Glucose, | 244 (H)Comment: Testing | 65 - 99 mg/dL | EXTERNAL | | | Fingerstick | performed at [facility];[address] | | LAB | | | | [address];[place] | | | | | | [address] | | | | + + + + + + + + | Specimen | + + | | + + + +---------+ + + | Performing | Address | City/State/Zipcode | Phone Number | | Organization | | | | + +---------+ + + | EXTERNAL LAB | | | | + +---------+ + + POC Glucose (01/02/2015 6:12 AM PDT) + + + + + + | Component | Value | Ref Range | Performed | Pathologist | | | | | At | Signature | + + + + + + | Glucose, | 146 (H)Comment: Testing | 65 - 99 mg/dL | EXTERNAL | | | Fingerstick | performed at [facility];[address] | | LAB | | | | [address];[place] | | | | | | [address] | | | | + + + + + + + + | Specimen | + + | | + + + +---------+ + + | Performing | Address | City/State/Zipcode | Phone Number | | Organization | | | | + +---------+ + + | EXTERNAL LAB | | | | + +---------+ + + PTT (01/02/2015 3:44 AM PDT) + + + + + + | Component | Value | Ref Range | Performed | Pathologist | | | | | At | Signature | + + + + + + | aPTT, | 48 (H)Comment: Testing | 23 - 32 seconds | EXTERNAL | | | Patient | performed at [facility] | | LAB | | | | [address];[place], [place] | | | | | | [address] | | | | + + + + + + + + | Specimen | + + | Blood specimen | | (specimen) | + + + +---------+ + + | Performing | Address | City/State/Zipcode | Phone Number | | Organization | | | | + +---------+ + + | EXTERNAL LAB | | | | + +---------+ + + Troponin I (01/02/2015 3:43 AM PDT) + + + + + + | Component | Value | Ref Range | Performed | Pathologist | | | | | At | Signature | + + + + + + | Troponin I, | 9.29 ()Comment: 0.00 | 0.00 - 0.10 | EXTERNAL | | | Qual | to 0.10 CONSISTENT | ng/mL | LAB | | | | WITH NORMAL | | | | | | POPULATION0.11 to 0.60 | | | | | | CONSISTENT WITH | | | | | | INCREASED RISK FOR | | | | | | ADVERSE OUTCOMES> 0.60 | | | | | | CONSISTENT | | | | | | WITH WHO CRITERIA FOR | | | | | | ACUTE UT CKTRP PHONED TO | | | | | | ICU [place] AT [address] BY | | | | | | LJREAD BACK RESULTS | | | | | | VERIFIEDTesting | | | | | | performed at [facility];[address] | | | | | | [address];[place], [place] | | | | | | [address] | | | | + + + + + + + + | Specimen | + + | Blood specimen | | (specimen) | + + + +---------+ + + | Performing | Address | City/State/Zipcode | Phone Number | | Organization | | | | + +---------+ + + | EXTERNAL LAB | | | | + +---------+ + + External Lab: MERLYN (01/02/2015 3:43 AM PDT) + + +---- + + + | Component | Value | Ref Range | Performed | Pathologist | | | | | At | Signature | + + +---- + + + | WBC | 11.87 (H)Comment: | 3.8 0 - 11.00 | EXTERNAL | | | | Testing performed at | K/u L | LAB | | | | [facility], [address] | | | | | | [place] | | | | | | [address] | | | | + + +---- + + + | Non- | 3.11 (L)Comment: Testing | 3.7 0 - 5.10 | EXTERNAL | | | Red Blood | performed at [facility], [address] | M/u L | LAB | | | Cells | [address], | | | | | Counted | [place] [address] | | | | + + +---- + + + | Hemoglobin | 8.1 (L)Comment: Testing | 11. 3 - 15.5 | EXTERNAL | | | | performed at [facility], [address] | g/d L | LAB | | | | [address], | | | | | | [place] [address] | | | | + + +---- + + + | Hematocrit, | 24.7 (L)Comment: Testing | 34. 0 - 46.0 % | EXTERNAL | | | POC | performed at [facility], [address] | | LAB | | | | [address], | | | | | | [place] [address] | | | | + + +---- + + + | MCV | 79.3 (L)Comment: Testing | 80. 0 - 100.0 fl | EXTERNAL | | | | performed at [facility], [address] | | LAB | | | | [address], | | | | | | [place] [address] | | | | + + +---- + + + | MCH | 26.1 (L)Comment: Testing | 27. 0 - 34.0 pg | EXTERNAL | | | | performed at [facility], [address] | | LAB | | | | [address], | | | | | | [place] [address] | | | | + + +---- + + + | MCHC | 32.9Comment: Testing | 32. 0 - 35.5 | EXTERNAL | | | | performed at [facility], [address] | g/d L | LAB | | | | [address], | | | | | | [place] [address] | | | | + + +---- + + + | RDW-CV | 38.1Comment: Testing | 37 - 53 fl | EXTERNAL | | | | performed at [facility], [address] | | LAB | | | | [address], | | | | | | [place] [address] | | | | + + +---- + + + | Platelet | 56 (L)Comment: Testing | 150 - 400 K/uL | EXTERNAL | | | Count | performed at [facility], [address] | | LAB | | | Plasma | [address], | | | | | | [place] [address] | | | | + + +---- + + + | MPV | 8.8Comment: Testing | fl | EXTERNAL | | | | performed at [facility], [address] | | LAB | | | | [address], | | | | | | [place] [address] | | | | + + +---- + + + | Differentia | MANUALComment: Testing | | EXTERNAL | | | l Type | performed at [facility], [address] | | LAB | | | | [address], | | | | | | [place] [address] | | | | + + +---- + + + | Segmented | 75Comment: Testing | % | EXTERNAL | | | Neutrophils | performed at [facility], [address] | | LAB | | | Manual | [address], | | | | | | [place] [address] | | | | + + +---- + + + | % Bands | 14Comment: Testing | % | EXTERNAL | | | | performed at [facility], [address] | | LAB | | | | [address], | | | | | | [place] [address] | | | | + + +---- + + + | Lymphocytes | 7Comment: Testing | % | EXTERNAL | | | Manual | performed at [facility], [address] | | LAB | | | | [address], | | | | | | [place] [address] | | | | + + +---- + + + | Monocytes | 4Comment: Testing | % | EXTERNAL | | | Manual | performed at [facility], [address] | | LAB | | | | [address], | | | | | | [place] [address] | | | | + + +---- + + + | Absolute | 8.91 (H)Comment: Testing | 1.9 0 - 7.40 | EXTERNAL | | | Neutrophils | performed at [facility], [address] | K/u L | LAB | | | | [address], | | | | | | [place] [address] | | | | + + +---- + + + | Bands | 1.66 (H)Comment: Testing | 0.0 0 - 0.20 | EXTERNAL | | | Manual | performed at [facility], [address] | K/u L | LAB | | | | [address], | | | | | | [place] [address] | | | | + + +---- + + + | Absolute | 0.83 (L)Comment: Testing | 1.0 0 - 3.90 | EXTERNAL | | | Lymphocytes | performed at [facility], [address] | K/u L | LAB | | | | [address], | | | | | | [place] [address] | | | | + + +---- + + + | Absolute | 0.47Comment: Testing | 0.0 0 - 0.80 | EXTERNAL | | | Monocytes | performed at [facility], [address] | K/u L | LAB | | | | [facility] [place], | | | | | | [place] [address] | | | | + + +---- + + + | Platelet | DECREASEDComment: | | EXTERNAL | | | Estimate | Testing performed at | | LAB | | | | [facility], [address] [facility] | | | | | | [place] | | | | | | [address] | | | | + + +---- + + + | RBC | 1+Comment: | | EXTERNAL | | | Morphology | HYPO2+BURRNORMAL PLT | | LAB | | | | MORPHTesting performed | | | | | | at [facility], [address] | | | | | | [facility], | | | | | | [place] [address] | | | | | |Testing performed at [facility], [address] [facility], [place] [address] | | | | | | | | | | + + +---- + + + + + | Specimen | + + | Blood specimen | | (specimen) | + + + +---------+ + + | Performing | Address | City/State/Zipcode | Phone Number | | Organization | | | | + +---------+ + + | EXTERNAL LAB | | | | + +---------+ + + Phosphorus (01/02/2015 3:43 AM PDT) + + + + + + | Component | Value | Ref Range | Performed | Pathologist | | | | | At | Signature | + + + + + + | PHOSPHORUS | 2.7Comment: Testing | 2.3 - 4.8 mg/dL | EXTERNAL | | | | performed at [facility];[address] | | LAB | | | | [address];[place], [place] | | | | | | [address] | | | | + + + + + + + + | Specimen | + + | Blood specimen | | (specimen) | + + + +---------+ + + | Performing | Address | City/State/Zipcode | Phone Number | | Organization | | | | + +---------+ + + | EXTERNAL LAB | | | | + +---------+ + + Magnesium (01/02/2015 3:43 AM PDT) + + + + + + | Component | Value | Ref Range | Performed | Pathologist | | | | | At | Signature | + + + + + + | Magnesium | 2.0Comment: Testing | 1.7 - 2.4 mg/dL | EXTERNAL | | | | performed at [facility];[address] | | LAB | | | | [address];[place] | | | | | | [address] | | | | + + + + + + + + | Specimen | + + | Blood specimen | | (specimen) | + + + +---------+ + + | Performing | Address | City/State/Zipcode | Phone Number | | Organization | | | | + +---------+ + + | EXTERNAL LAB | | | | + +---------+ + + Hepatic Function Panel (01/02/2015 3:43 AM PDT) + + + + + + | Component | Value | Ref Range | Performed | Pathologist | | | | | At | Signature | + + + + + + | Protein, | 5.5 (L)Comment: Testing | 6.3 - 8.2 g/dL | EXTERNAL | | | Total | performed at [facility];[address] | | LAB | | | | [address];[place] | | | | | | [address] | | | | + + + + + + | Albumin | 3.0 (L)Comment: Testing | 3.3 - 4.8 g/dL | EXTERNAL | | | | performed at [facility];[address] | | LAB | | | | [address];[place] | | | | | | [address] | | | | + + + + + + | Bilirubin | 2.6 (H)Comment: Testing | 0.1 - 1.5 mg/dL | EXTERNAL | | | Total | performed at [facility];[address] | | LAB | | | | [address];[place] | | | | | | [address] | | | | + + + + + + | Bilirubin | 0.4 (H)Comment: Testing | 0.0 - 0.3 mg/dL | EXTERNAL | | | Direct | performed at [facility];[address] | | LAB | | | | [address];[place] | | | | | | [address] | | | | + + + + + + | ALP, | 98Comment: Testing | 35 - 115 U/L | EXTERNAL | | | External | performed at [facility];[address] | | LAB | | | | [address];[place] | | | | | | [address] | | | | + + + + + + | AST | 308 (H)Comment: Testing | 10 - 45 U/L | EXTERNAL | | | | performed at [facility];[address] | | LAB | | | | [address];[place] | | | | | | [address] | | | | + + + + + + | ALT | 239 (H)Comment: Testing | 10 - 65 U/L | EXTERNAL | | | | performed at [facility];[address] | | LAB | | | | [address];[place] | | | | | | [address] | | | | + + + + + + + + | Specimen | + + | | + + + +---------+ + + | Performing | Address | City/State/Zipcode | Phone Number | | Organization | | | | + +---------+ + + | EXTERNAL LAB | | | | + +---------+ + + Basic Metabolic Panel (01/02/2015 3:43 AM PDT) + + + + + + | Component | Value | Ref Range | Performed | Pathologist | | | | | At | Signature | + + + + + + | Na | 132 (L)Comment: Testing | 135 - 143 | EXTERNAL | | | | performed at [facility];[address] | mmol/L | LAB | | | | [address];[place] | | | | | | [address] | | | | + + + + + + | K | 4.4Comment: Testing | 3.5 - 4.9 | EXTERNAL | | | | performed at [facility];[address] | mmol/L | LAB | | | | [address];[place] | | | | | | [address] | | | | + + + + + + | Cl | 96 (L)Comment: Testing | 99 - 109 mmol/L | EXTERNAL | | | | performed at [facility];[address] | | LAB | | | | [address];[place] | | | | | | [address] | | | | + + + + + + | CO2 | 28Comment: Testing | 23 - 32 mmol/L | EXTERNAL | | | | performed at [facility];[address] | | LAB | | | | [address];[place] | | | | | | [address] | | | | + + + + + + | Anion Gap | 13Comment: Testing | 5 - 20 mmol/L | EXTERNAL | | | | performed at [facility];[address] | | LAB | | | | [address];[place] | | | | | | [address] | | | | + + + + + + | Glucose, | 138 (H)Comment: Testing | 65 - 99 mg/dL | EXTERNAL | | | Fasting | performed at [facility];[address] | | LAB | | | | [address];[place] | | | | | | [address] | | | | + + + + + + | BUN | 27 (H)Comment: Testing | 8 - 25 mg/dL | EXTERNAL | | | | performed at [facility];[address] | | LAB | | | | [address];[place] | | | | | | [address] | | | | + + + + + + | Creatinine | 1.97 (H)Comment: Testing | 0.50 - 1.00 | EXTERNAL | | | | performed at [facility];[address] | mg/dL | LAB | | | | [address];[place] | | | | | | [address] | | | | + + + + + + | BUN/Creatin | 14Comment: Testing | | EXTERNAL | | | ine Ratio | performed at [facility];[address] | | LAB | | | | [address];[place] | | | | | | [address] | | | | + + + + + + | Calcium | 7.8 (L)Comment: Testing | 8.5 - 10.5 | EXTERNAL | | | | performed at [facility];[address] | mg/dL | LAB | | | | [address];[place] | | | | | | [address] | | | | + + + + + + | Estimated | 27 (L)Comment: GFR <60: | mL/min/1.73m2 | EXTERNAL | | | GFR | CHRONIC KIDNEY DISEASE, | | LAB | | | | IF FOUND OVER A 3 MONTH | | | | | | PERIOD.GFR <15: KIDNEY | | | | | | FAILURE.FOR | | | | | | AMERICANS, MULTIPLY THE | | | | | | CALCULATED GFR BY | | | | | | 1.210.Testing performed | | | | | | at [facility];[address] [place] [address] | | | | | | Blvd;[place] [address] | | | | + + + + + + + + | Specimen | + + | Blood specimen | | (specimen) | + + + +---------+ + + | Performing | Address | City/State/Zipcode | Phone Number | | Organization | | | | + +---------+ + + | EXTERNAL LAB | | | | + +---------+ + + POC Glucose (01/01/2015 11:12 PM PDT) + + + + + + | Component | Value | Ref Range | Performed | Pathologist | | | | | At | Signature | + + + + + + | Glucose, | 181 (H)Comment: Testing | 65 - 99 mg/dL | EXTERNAL | | | Fingerstick | performed at [facility];[address] | | LAB | | | | [address];[place] | | | | | | [address] | | | | + + + + + + + + | Specimen | + + | | + + + +---------+ + + | Performing | Address | City/State/Zipcode | Phone Number | | Organization | | | | + +---------+ + + | EXTERNAL LAB | | | | + +---------+ + + Legionella, Ag, EIA, Qual, Urine (01/01/2015 8:47 PM PDT) + + + + + + | Component | Value | Ref Range | Performed | Pathologist | | | | | At | Signature | + + + + + + | LEGIONELLA | NEGATIVEComment: THIS | | EXTERNAL | | | AG,U INTERP | ASSAY DETECTS LEGIONELLA | | LAB | | | | PNEUMOPHILA SEROGROUP | | | | | | ONE (1) ANTIGEN.A | | | | | | NEGATIVE TEST RESULT | | | | | | DOES NOT RULE OUT THE | | | | | | POSSIBILITY OF | | | | | | LEGIONELLAINFECTION DUE | | | | | | TO OTHER SEROGROUPS OR | | | | | | SPECIES OF | | | | | | LEGIONELLA.Testing | | | | | | performed by [facility], | | | | | | [place] [address] | | | | + + + + + + + + | Specimen | + + | Urine specimen | | (specimen) | + + + +---------+ + + | Performing | Address | City/State/Zipcode | Phone Number | | Organization | | | | + +---------+ + + | EXTERNAL LAB | | | | + +---------+ + + PTT (01/01/2015 8:01 PM PDT) + + + + + + | Component | Value | Ref Range | Performed | Pathologist | | | | | At | Signature | + + + + + + | aPTT, | 53 (H)Comment: Testing | 23 - 32 seconds | EXTERNAL | | | Patient | performed at [facility];[address] | | LAB | | | | [address];[place], [place] | | | | | | [address] | | | | + + + + + + + + | Specimen | + + | Blood specimen | | (specimen) | + + + +---------+ + + | Performing | Address | City/State/Zipcode | Phone Number | | Organization | | | | + +---------+ + + | EXTERNAL LAB | | | | + +---------+ + + Cytomegalovirus Ab, IgG and IgM (01/01/2015 8:00 PM PDT) + + + + + + | Component | Value | Ref Range | Performed | Pathologist | | | | | At | Signature | + + + + + + | CMV IGG | NEGATIVEComment: CMV | | EXTERNAL | | | | AB, IGG (U/ML): <0.20A | | LAB | | | | VALUE OF LESS THAN 0.6 | | | | | | U/ML IS CONSIDERED | | | | | | NEGATIVETHE MAGNITUDE OF | | | | | | THE MEASURED RESULTS | | | | | | ARE NOT INDICATIVE OF | | | | | | THE AMOUNTOF ANTIBODY | | | | | | PRESENT.NO DETECTABLE | | | | | | IGG ANTIBODIES TO | | | | | | CYTOMEGALOVIRUS.Testing | | | | | | performed at [facility], [address] | | | | | | [facility] | | | | | | [place] [address] | | | | + + + + + + | CMV IGM | NEGATIVEComment: CMV | | EXTERNAL | | | | AB, IGM (AU/ML): <8.0A | | LAB | | | | VALUE OF LESS THAN 30.0 | | | | | | AU/ML IS CONSIDERED | | | | | | NEGATIVETHE MAGNITUDE OF | | | | | | THE MEASURED RESULTS | | | | | | ARE NOT INDICATIVE OF | | | | | | THE AMOUNTOF ANTIBODY | | | | | | PRESENT.NO DETECTABLE | | | | | | IGM ANTIBODIES TO | | | | | | CYTOMEGALOVIRUS.Testing | | | | | | performed at [facility], [address] | | | | | | [facility] | | | | | | [place] [address] | | | | + + + + + + + + | Specimen | + + | | + + + +---------+ + + | Performing | Address | City/State/Zipcode | Phone Number | | Organization | | | | + +---------+ + + | EXTERNAL LAB | | | | + +---------+ + + Mycoplasma Ab, IgG and IgM (01/01/2015 8:00 PM PDT) + + + + + + | Component | Value | Ref Range | Performed | Pathologist | | | | | At | Signature | + + + + + + | M PNEUMO | 0.060Comment: NEGATIVE. | U/L | EXTERNAL | | | AB,IGG | NO DETECTABLE IGG | | LAB | | | | ANTIBODY, SUGGESTS NO | | | | | | PRIOR EXPOSURE | | | | | | TOMYCOPLASMA PNEUMONIAE. | | | | | | RESULTS DO NOT RULE | | | | | | OUT RECENT | | | | | | EXPOSURE.Testing | | | | | | performed at [facility], [address] | | | | | | [place] | | | | | | [place] [address] | | | | + + + + + + | M PNEUMO | 0.117Comment: NEGATIVE. | U/L | EXTERNAL | | | AB,IGM | NO CLINICALLY | | LAB | | | | SIGNIFICANT AMOUNT OF | | | | | | MYCOPLASMA PNEUMONIAEIGM | | | | | | ANTIBODY | | | | | | DETECTED.Testing | | | | | | performed at [facility], [address] | | | | | | [place] | | | | | | [place] [address] | | | | + + + + + + + + | Specimen | + + | | + + + +---------+ + + | Performing | Address | City/State/Zipcode | Phone Number | | Organization | | | | + +---------+ + + | EXTERNAL LAB | | | | + +---------+ + + PAM Adams Quant (01/01/2015 8:00 PM PDT) + + + + + + | Component | Value | Ref Range | Performed | Pathologist | | | | | At | Signature | + + + + + + | Source | PLASMAComment: Testing | | EXTERNAL | | | | performed at [facility];[address] | | LAB | | | | [address] [facility];[place], [place] | | | | | | [address] | | | | + + + + + + | CMV DNA | NOT DETECTEDComment: | | EXTERNAL | | | QUANTITATIV | Unit: IU/MLTesting | | LAB | | | E INTERP | performed at [facility], [address] | | | | | | [place] | | | | | | [place] [address] | | | | + + + + + + | CMV DNA, | NOT DETECTEDComment: | | EXTERNAL | | | Qual PCR | Unit: COPIES/MLTesting | | LAB | | | | performed at [facility], [address] | | | | | | [place] | | | | | | [place] [address] | | | | + + + + + + | CMV, Quant, | NOT DETECTEDComment: | | EXTERNAL | | | log | Unit: LOG COPIES/ML | | LAB | | | copy/mL | REPORTABLE RANGE: | | | | | | 137 TO 9,100,000 | | | | | | IU/ML 151 | | | | | | TO 10,010,000 COPIES/ML | | | | | | 2.2 TO | | | | | | 7.0 LOG COPIES/MLA | | | | | | RESULT OF NOT DETECTED | | | | | | DOES NOT RULE OUT | | | | | | PRESENCE OF PCR | | | | | | INHIBITORSIN PATIENT | | | | | | SPECIMENS OR | | | | | | CYTOMEGALOVIRUS | | | | | | CONCENTRATIONS BELOW THE | | | | | | LEVELOF DETECTION OF | | | | | | THE ASSAY.THIS TEST WAS | | | | | | DEVELOPED AND ITS | | | | | | PERFORMANCE | | | | | | CHARACTERISTICS | | | | | | DETERMINEDBY [facility] | | | | | | DIVISION OF LABORATORY | | | | | | MEDICINE. THE [place] [employer] | | | | | | AND DRUGADMINISTRATION | | | | | | (FDA) HAS NOT APPROVED | | | | | | OR CLEARED THIS TEST. | | | | | | HOWEVER,FDA APPROVAL OR | | | | | | CLEARANCE IS CURRENTLY | | | | | | NOT REQUIRED FOR | | | | | | CLINICAL USEOF THIS | | | | | | TEST.THE RESULTS ARE NOT | | | | | | INTENDED TO BE USED | | | | | | THE SOLE MEANS FOR | | | | | | CLINICALDIAGNOSIS OR | | | | | | PATIENT MANAGEMENT | | | | | | DECISIONS. [facility] | | | | | | IS AUTHORIZEDUNDER | | | | | | CLINICAL LABORATORY | | | | | | IMPROVEMENT AMENDMENTS | | | | | | (CLIA) TO | | | | | | PERFORMHIGH-COMPLEXITY | | | | | | TESTING.THIS ASSAY | | | | | | INCLUDES REPORTING IN | | | | | | IU/ML TO PROVIDE | | | | | | TRACABILITY TO THE1ST | | | | | | WHO INTERNATIONAL | | | | | | STANDARD FOR HUMAN | | | | | | CYTOMEGALOVIRUS | | | | | | (HCMV).Testing performed | | | | | | at [facility], [address] | | | | | | [place] | | | | | | [id number] | | | | + + + + + + + + | Specimen | + + | Blood specimen | | (specimen) | + + + +---------+ + + | Performing | Address | City/State/Zipcode | Phone Number | | Organization | | | | + +---------+ + + | EXTERNAL LAB | | | | + +---------+ + + POC Glucose (01/01/2015 7:44 PM PDT) + + + + + + | Component | Value | Ref Range | Performed | Pathologist | | | | | At | Signature | + + + + + + | Glucose, | 155 (H)Comment: Testing | 65 - 99 mg/dL | EXTERNAL | | | Fingerstick | performed at [facility] | [address] | | | | [address];[place] | | | | | | [address] | | | | + + + + + + + + | Specimen | + + | | + + + +---------+ + + | Performing | Address | City/State/Zipcode | Phone Number | | Organization | | | | + +---------+ + + | EXTERNAL LAB | | | | + +---------+ + + Troponin I (01/01/2015 6:08 PM PDT) + + + + + + | Component | Value | Ref Range | Performed | Pathologist | | | | | At | Signature | + + + + + + | Troponin I, | 19.3 ()Comment: 0.00 | 0.00 - 0.10 | EXTERNAL | | | Qual | to 0.10 CONSISTENT | ng/mL | LAB | | | | WITH NORMAL | | | | | | POPULATION0.11 to 0.60 | | | | | | CONSISTENT WITH | | | | | | INCREASED RISK FOR | | | | | | ADVERSE OUTCOMES> 0.60 | | | | | | CONSISTENT | | | | | | WITH WHO CRITERIA FOR | | | | | | ACUTE [facility] RESULT READ | | | | | | BACK BY:DONOVAN M/ICU AT | | | | | | 1854 SAMTesting | | | | | | performed at [facility];[address] | | | | | | [address] [facility];[place], [place] | | | | | | [address] | | | | + + + + + + + + | Specimen | + + | Blood specimen | | (specimen) | + + + +---------+ + + | Performing | Address | City/State/Zipcode | Phone Number | | Organization | | | | + +---------+ + + | EXTERNAL LAB | | | | + +---------+ + + CK Total (01/01/2015 6:08 PM PDT) + + + + + + | Component | Value | Ref Range | Performed | Pathologist | | | | | At | Signature | + + + + + + | CK, Total | 2897 (H)Comment: Testing | 30 - 240 U/L | EXTERNAL | | | | performed at [facility];[address] | | LAB | | | | [address] [facility];[place], [place] | | | | | | [address] | | | | + + + + + + + + | Specimen | + + | Blood specimen | | (specimen) | + + + +---------+ + + | Performing | Address | City/State/Zipcode | Phone Number | | Organization | | | | + +---------+ + + | EXTERNAL LAB | | | | + +---------+ + + POC Glucose (01/01/2015 5:24 PM PDT) + + + + + + | Component | Value | Ref Range | Performed | Pathologist | | | | | At | Signature | + + + + + + | Glucose, | 76Comment: Testing | 65 - 99 mg/dL | EXTERNAL | | | Fingerstick | performed at [facility];[address] | | LAB | | | | [address];[place], [place] | | | | | | [address] | | | | + + + + + + + + | Specimen | + + | | + + + +---------+ + + | Performing | Address | City/State/Zipcode | Phone Number | | Organization | | | | + +---------+ + + | EXTERNAL LAB | | | | + +---------+ + + POC Glucose (01/01/2015 4:37 PM PDT) + + + + + + | Component | Value | Ref Range | Performed | Pathologist | | | | | At | Signature | + + + + + + | Glucose, | 53 (L)Comment: Testing | 65 - 99 mg/dL | EXTERNAL | | | Fingerstick | performed at [facility] | | LAB | | | | [address];[place] | | | | | | [address] | | | | + + + + + + + + | Specimen | + + | | + + + +---------+ + + | Performing | Address | City/State/Zipcode | Phone Number | | Organization | | | | + +---------+ + + | EXTERNAL LAB | | | | + +---------+ + + POC Glucose (01/01/2015 2:26 PM PDT) + + + + + + | Component | Value | Ref Range | Performed | Pathologist | | | | | At | Signature | + + + + + + | Glucose, | 134 (H)Comment: Testing | 65 - 99 mg/dL | EXTERNAL | | | Fingerstick | performed at [facility];[address] | | LAB | | | | [address];[place] | | | | | | [address] | | | | + + + + + + + + | Specimen | + + | | + + + +---------+ + + | Performing | Address | City/State/Zipcode | Phone Number | | Organization | | | | + +---------+ + + | EXTERNAL LAB | | | | + +---------+ + + PTT (01/01/2015 1:49 PM PDT) + + + + + + | Component | Value | Ref Range | Performed | Pathologist | | | | | At | Signature | + + + + + + | aPTT, | 56 (H)Comment: Testing | 23 - 32 seconds | EXTERNAL | | | Patient | performed at [facility];[address] | | LAB | | | | [address];[place], [place] | | | | | | [address] | | | | + + + + + + + + | Specimen | + + | Blood specimen | | (specimen) | + + + +---------+ + + | Performing | Address | City/State/Zipcode | Phone Number | | Organization | | | | + +---------+ + + | EXTERNAL LAB | | | | + +---------+ + + Troponin I (01/01/2015 1:48 PM PDT) + + + + + + | Component | Value | Ref Range | Performed | Pathologist | | | | | At | Signature | + + + + + + | Troponin I, | 30.7 ()Comment: 0.00 | 0.00 - 0.10 | EXTERNAL | | | Qual | to 0.10 CONSISTENT | ng/mL | LAB | | | | WITH NORMAL | | | | | | POPULATION0.11 to 0.60 | | | | | | CONSISTENT WITH | | | | | | INCREASED RISK FOR | | | | | | ADVERSE OUTCOMES> 0.60 | | | | | | CONSISTENT | | | | | | WITH WHO CRITERIA FOR | | | | | | ACUTE UT RESULT READ | | | | | | BACK BY:OMAR Melendez/ICU AT | | | | | | 1449 SAMTesting | | | | | | performed at [facility];[address] | | | | | | [facility];[place], [place] | | | | | | [address] | | | | + + + + + + + + | Specimen | + + | Blood specimen | | (specimen) | + + + +---------+ + + | Performing | Address | City/State/Zipcode | Phone Number | | Organization | | | | + +---------+ + + | EXTERNAL LAB | | | | + +---------+ + + Potassium (01/01/2015 1:48 PM PDT) + + + + + + | Component | Value | Ref Range | Performed | Pathologist | | | | | At | Signature | + + + + + + | K | 3.4 (L)Comment: Testing | 3.5 - 4.9 | EXTERNAL | | | | performed at [facility];[address] | mmol/L | LAB | | | | [address];[place] | | | | | | [address] | | | | + + + + + + + + | Specimen | + + | | + + + +---------+ + + | Performing | Address | City/State/Zipcode | Phone Number | | Organization | | | | + +---------+ + + | EXTERNAL LAB | | | | + +---------+ + + CK Total (01/01/2015 1:48 PM PDT) + + + + + + | Component | Value | Ref Range | Performed | Pathologist | | | | | At | Signature | + + + + + + | CK, Total | 3441 (H)Comment: Testing | 30 - 240 U/L | EXTERNAL | | | | performed at [facility];[address] | | LAB | | | | [address];[place] | | | | | | [address] | | | | + + + + + + + + | Specimen | + + | Blood specimen | | (specimen) | + + + +---------+ + + | Performing | Address | City/State/Zipcode | Phone Number | | Organization | | | | + +---------+ + + | EXTERNAL LAB | | | | + +---------+ + + POC Glucose (01/01/2015 12:29 PM PDT) + + + + + + | Component | Value | Ref Range | Performed | Pathologist | | | | | At | Signature | + + + + + + | Glucose, | 121 (H)Comment: Testing | 65 - 99 mg/dL | EXTERNAL | | | Fingerstick | performed at [facility];[address] | | LAB | | | | [address];[place] | | | | | | [address] | | | | + + + + + + + + | Specimen | + + | | + + + +---------+ + + | Performing | Address | City/State/Zipcode | Phone Number | | Organization | | | | + +---------+ + + | EXTERNAL LAB | | | | + +---------+ + + POC Glucose (01/01/2015 10:33 AM PDT) + + + + + + | Component | Value | Ref Range | Performed | Pathologist | | | | | At | Signature | + + + + + + | Glucose, | 124 (H)Comment: Testing | 65 - 99 mg/dL | EXTERNAL | | | Fingerstick | performed at [facility];[address] | | LAB | | | | [address];[place] | | | | | | [address] | | | | + + + + + + + + | Specimen | + + | | + + + +---------+ + + | Performing | Address | City/State/Zipcode | Phone Number | | Organization | | | | + +---------+ + + | EXTERNAL LAB | | | | + +---------+ + + POC Glucose (01/01/2015 9:23 AM PDT) + + + + + + | Component | Value | Ref Range | Performed | Pathologist | | | | | At | Signature | + + + + + + | Glucose, | 118 (H)Comment: Testing | 65 - 99 mg/dL | EXTERNAL | | | Fingerstick | performed at [facility];[address] | | LAB | | | | [address];[place] | | | | | | [address] | | | | + + + + + + + + | Specimen | + + | | + + + +---------+ + + | Performing | Address | City/State/Zipcode | Phone Number | | Organization | | | | + +---------+ + + | EXTERNAL LAB | | | | + +---------+ + + POC Glucose (01/01/2015 8:24 AM PDT) + + + + + + | Component | Value | Ref Range | Performed | Pathologist | | | | | At | Signature | + + + + + + | Glucose, | 119 (H)Comment: Testing | 65 - 99 mg/dL | EXTERNAL | | | Fingerstick | performed at [facility];[address] | | LAB | | | | [address];[place], [place] | | | | | | [address] | | | | + + + + + + + + | Specimen | + + | | + + + +---------+ + + | Performing | Address | City/State/Zipcode | Phone Number | | Organization | | | | + +---------+ + + | EXTERNAL LAB | | | | + +---------+ + + ECHO Complete (01/01/2015 7:53 AM PDT) + + | Specimen | + + | | + + + + + | Impressions | Performed At | + + + | 1. Sinus rhythm. 2. A 2-dimensional transthoracic echocardiogram | | | with m-mode, spectral and color flow Doppler was perfomed. 3. This | | | was a technically difficult study with suboptimal apical views. 4. | | | Overall left ventricular systolic function is low-normal with, an EF | | | between 50 - 55 %. 5. The left ventricle cavity size is normal. 6. | | | Left ventricular wall thickness is normal. 7. The diastolic filling | | | pattern indicates impaired relaxation consistent with mild dysfunction | | | (Grade I). 8. The right ventricle is normal in size. 9. The left | | | atrial size is normal. 10. The right atrial size is normal. 11. The | | | aortic valve is trileaflet and appears structurally normal. 12. There | | | is no evidence of aortic regurgitation. 13. There is no evidence of | | | aortic stenosis. 14. The mitral valve is normal. 15. There is trace | | | mitral regurgitation. 16. Mild mitral annular calcification present. | | | 17. The tricuspid valve appears structurally normal. 18. Mild | | | tricuspid regurgitation present. 19. There is no evidence of | | | pulmonary hypertension. 20. The right ventricular systolic pressure | | | (pulmonary artery systolic pressure), as measured by Doppler, is | | | 29.00mmHg. 21. The pulmonic valve was not well visualized. 22. Trace | | | pulmonic regurgitation 23. There is no pericardial effusion. 24. | | | The IVC is normal size (1.5-2.5cm) and collapses <50% with sniff, | | | consistent with central venous pressures of 10-15mmHg. | | + + + + + + | Narrative | Performed At | + + + | Patient Name: PASTORA TREJO Date of : 1945 | | | Performing Physician: Mo Max MD | | | | | | INDICATIONS abnormal ekg CONCLUSIONS | | | 1. Sinus rhythm. 2. A 2-dimensional transthoracic echocardiogram with | | | m-mode, spectral and color flow Doppler was perfomed. 3. This was a | | | technically difficult study with suboptimal apical views. 4. Overall | | | left ventricular systolic function is low-normal with, an EF between | | | 50 - 55 %. 5. The left ventricle cavity size is normal. 6. Left | | | ventricular wall thickness is normal. 7. The diastolic filling | | | pattern indicates impaired relaxation consistent with mild dysfunction | | | (Grade I). 8. The right ventricle is normal in size. 9. The left | | | atrial size is normal. 10. The right atrial size is normal. 11. The | | | aortic valve is trileaflet and appears structurally normal. 12. There | | | is no evidence of aortic regurgitation. 13. There is no evidence of | | | aortic stenosis. 14. The mitral valve is normal. 15. There is trace | | | mitral regurgitation. 16. Mild mitral annular calcification present. | | | 17. The tricuspid valve appears structurally normal. 18. Mild | | | tricuspid regurgitation present. 19. There is no evidence of | | | pulmonary hypertension. 20. The right ventricular systolic pressure | | | (pulmonary artery systolic pressure), as measured by Doppler, is | | | 29.00mmHg. 21. The pulmonic valve was not well visualized. 22. Trace | | | pulmonic regurgitation 23. There is no pericardial effusion. 24. | | | The IVC is normal size (1.5-2.5cm) and collapses <50% with sniff, | | | consistent with central venous pressures of 10-15mmHg. FINDINGS | | | -------- ECG rhythm: Sinus rhythm. Study: A 2-dimensional | | | transthoracic echocardiogram with m-mode, spectral and color flow | | | Doppler was perfomed. Study: This was a technically difficult study | | | with suboptimal apical views. Left Ventricle: Overall left | | | ventricular systolic function is low-normal with, an EF between 50 - | | | 55 %. Left Ventricle: The left ventricle cavity size is normal. Left | | | Ventricle: Left ventricular wall thickness is normal. Left | | | Ventricle: The diastolic filling pattern indicates impaired relaxation | | | consistent with mild dysfunction (Grade I). Right Ventricle: The | | | right ventricle is normal in size. Left Atrium: The left atrial size | | | is normal. Right Atrium: The right atrial size is normal. Aortic | | | Valve: The aortic valve is trileaflet and appears structurally normal. | | | Aortic Valve: There is no evidence of aortic regurgitation. Aortic | | | Valve: There is no evidence of aortic stenosis. Mitral Valve: The | | | mitral valve is normal. Mitral Valve: There is trace mitral | | | regurgitation. Mitral Valve: Mild mitral annular calcification | | | present. Tricuspid Valve: The tricuspid valve appears structurally | | | normal. Tricuspid Valve: Mild tricuspid regurgitation present. | | | Tricuspid Valve: There is no evidence of pulmonary hypertension. | | | Tricuspid Valve: The right ventricular systolic pressure (pulmonary | | | artery systolic pressure), as measured by Doppler, is 29.00mmHg. | | | Pulmonic Valve: The pulmonic valve was not well visualized. Pulmonic | | | Valve: Trace pulmonic regurgitation. Pericardium: There is no | | | pericardial effusion. IVC/Hepatic Veins: The IVC is normal size | | | (1.5-2.5cm) and collapses <50% with sniff, consistent with central | | | venous pressures of 10-15mmHg. MEASUREMENTS Ao | | | asc: 2.99 cm IVC: 1.85 cm LA Major: 3.54 cm EDV(Teich): | | | 58.96 ml IVSd: 1.06 cm LVIDd: 3.72 cm LVPWd: 1.06 cm | | | LVOT Diam: 1.87 cm %FS: 27.67 % EF(Teich): 54.51 % | | | ESV(Teich): 26.81 ml IVSs: 1.05 cm LVIDs: 2.69 cm LVPWs: | | | 1.44 cm SV(Teich): 32.14 ml RA Major: 3.94 cm RVIDd: | | | 2.68 cm LAESV(A-L): 27.21 ml LAESV Index (A-L): 16.39 ml/m2 | | | LAAs A2C: 11.65 cm2 LAESV A-L A2C: 28.38 ml LAESV MOD A2C: | | | 25.43 ml LALs A2C: 4.05 cm LAAs A4C: 11.16 cm2 LAESV A-L A4C: | | | 24.20 ml LAESV MOD A4C: 22.26 ml LALs A4C: 4.37 cm HR: | | | 100.81 BPM AV maxP.59 mmHg AV meanP.07 mmHg AV Vmax: | | | 1.46 m/s AV Vmean: 1.08 m/s AV VTI: 22.83 cm WYATT Vmax: | | | 1.75 cm2 WYATT (VTI): 1.95 cm2 LVCI Dopp: 2.81 l/minm2 LVCO | | | Dopp: 4.66 l/min HR: 104.45 BPM LVOT maxP.52 mmHg LVOT | | | meanP.03 mmHg LVSI Dopp: 26.90 ml/m2 LVSV Dopp: 44.66 | | | ml LVOT Vmax: 0.93 m/s LVOT Vmean: 0.67 m/s LVOT VTI: | | | 16.26 cm MCO: 380.62 ms MV A Bobby: 0.89 m/s MV DecT: 94.14 | | | ms MV E Bobby: 0.64 m/s MV E/A Ratio: 0.72 MV PHT: 51.80 ms | | | MVA By PHT: 4.24 cm2 MV A Dur: 96.88 ms IVRT: 93.42 ms | | | Septal e': 0.06 m/s Septal E/e': 10.30 Lateral e': 0.05 m/s | | | Lateral E/e': 12.47 P Vein D: 0.36 m/s P Vein S/D Ratio: | | | 1.31 P Vein S: 0.47 m/s HR: 95.80 BPM PV maxP.27 mmHg | | | PV meanP.72 mmHg PV Vmax: 0.56 m/s PV Vmean: 0.41 m/s | | | PV VTI: 12.35 cm RAP: 10 mmHg RVSP: 28.99 mmHg TR maxPG: | | | 18.99 mmHg TR Vmax: 2.17 m/s TV A Bobby: 0.49 m/s TV Dec | | | [place]: 2.04 m/s2 TV Dec Time: 148.23 ms TV E Bobby: 0.30 m/s | | | TV E/A Ratio: 0.61 Car Icer: RICHARD Authenticated by: Mo | | | Vu Max MD Report Date/Time: 01-01-2015 17:34:32 | | + + + + + | Procedure Note | + + | Bertrand Muniz Conversion - 04/15/2019 8:35 AM PDT Patient Name: Georgia TREJO of | | : 1945 Performing Physician: Mo Max | | MD INDICATIONS a | | bnormal ekg CONCLUSIONS 1. Sinus rhythm.2. A 2-dimensional transthoracic | | echocardiogram with m-mode, spectral and color flow Doppler was perfomed.3. This was a | | technically difficult study with suboptimal apical views.4. Overall left ventricular | | systolic function is low-normal with, an EF between 50 - 55 %.5. The left ventricle | | cavity size is normal.6. Left ventricular wall thickness is normal.7. The diastolic | | filling pattern indicates impaired relaxation consistent with mild dysfunction (Grade | | I).8. The right ventricle is normal in size.9. The left atrial size is normal.10. The | | right atrial size is normal.11. The aortic valve is trileaflet and appears structurally | | normal.12. There is no evidence of aortic regurgitation.13. There is no evidence of | | aortic stenosis.14. The mitral valve is normal.15. There is trace mitral | | regurgitation.16. Mild mitral annular calcification present.17. The tricuspid valve | | appears structurally normal.18. Mild tricuspid regurgitation present.19. There is no | | evidence of pulmonary hypertension.20. The right ventricular systolic pressure | | (pulmonary artery systolic pressure), as measured by Doppler, is 29.00mmHg.21. The | | pulmonic valve was not well visualized.22. Trace pulmonic [id number]. There is no | | pericardial effusion.24. The IVC is normal size (1.5-2.5cm) and collapses <50% with | | sniff, consistent with central venous pressures of 10-15mmHg. FINDINGS--------ECG | | rhythm: Sinus rhythm.Study: A 2-dimensional transthoracic echocardiogram with m-mode, | | spectral and color flow Doppler was perfomed.Study: This was a technically difficult | | study with suboptimal apical views.Left Ventricle: Overall left ventricular systolic | | function is low-normal with, an EF between 50 - 55 %.Left Ventricle: The left ventricle | | cavity size is normal.Left Ventricle: Left ventricular wall thickness is normal.Left | | Ventricle: The diastolic filling pattern indicates impaired relaxation consistent with | | mild dysfunction (Grade I).Right Ventricle: The right ventricle is normal in size.Left | | Atrium: The left atrial size is normal.Right Atrium: The right atrial size is | | normal.Aortic Valve: The aortic valve is trileaflet and appears structurally | | normal.Aortic Valve: There is no evidence of aortic regurgitation.Aortic Valve: There is | | no evidence of aortic stenosis.Mitral Valve: The mitral valve is normal.Mitral Valve: | | There is trace mitral regurgitation.Mitral Valve: Mild mitral annular calcification | | present.Tricuspid Valve: The tricuspid valve appears structurally normal.Tricuspid | | Valve: Mild tricuspid regurgitation present.Tricuspid Valve: There is no evidence of | | pulmonary hypertension.Tricuspid Valve: The right ventricular systolic pressure | | (pulmonary artery systolic pressure), as measured by Doppler, is 29.00mmHg.Pulmonic | | Valve: The pulmonic valve was not well visualized.Pulmonic Valve: Trace pulmonic | | regurgitation.Pericardium: There is no pericardial effusion.IVC/Hepatic Veins: The IVC | | is normal size (1.5-2.5cm) and collapses <50% with sniff, consistent with central venous | | pressures of 10-15mmHg. MEASUREMENTS Ao asc: 2.99 cmIVC: 1.85 cmLA | | Major: 3.54 cmEDV(Teich): 58.96 mlIVSd: 1.06 cmLVIDd: 3.72 cmLVPWd: 1.06 | | cmLVOT Diam: 1.87 cm%FS: 27.67 %EF(Teich): 54.51 %ESV(Teich): 26.81 mlIVSs: | | 1.05 cmLVIDs: 2.69 cmLVPWs: 1.44 cmSV(Teich): 32.14 mlRA Major: 3.94 cmRVIDd: | | 2.68 cmLAESV(A-L): 27.21 mlLAESV Index (A-L): 16.39 ml/m2LAAs A2C: 11.65 [id number] | | A-L A2C: 28.38 mlLAESV MOD A2C: 25.43 mlLALs A2C: 4.05 cmLAAs A4C: 11.16 | | [id number] A-L A4C: 24.20 mlLAESV MOD A4C: 22.26 mlLALs A4C: 4.37 cmHR: 100.81 | | BPMAV maxP.59 mmHgAV meanP.07 mmHgAV Vmax: 1.46 m/Lisa Vmean: 1.08 m/Lisa | | VTI: 22.83 cmAVA Vmax: 1.75 cm2AVA (VTI): 1.95 [id number] Dopp: 2.81 [id number] | | Dopp: 4.66 l/minHR: 104.45 BPMLVOT maxP.52 mmHgLVOT meanP.03 mmHgLVSI | | Dopp: 26.90 ml/m2LVSV Dopp: 44.66 mlLVOT Vmax: 0.93 m/sLVOT Vmean: 0.67 m/sLVOT | | VTI: 16.26 cmMCO: 380.62 msMV A Bobby: 0.89 m/sMV DecT: 94.14 msMV E Bobby: 0.64 | | m/sMV E/A Ratio: 0.72MV PHT: 51.80 msMVA By PHT: 4.24 cm2MV A Dur: 96.88 msIVRT: | | 93.42 msSeptal e': 0.06 m/sSeptal E/e': 10.30Lateral e': 0.05 m/sLateral E/e': | | 12.47P Vein D: 0.36 m/sP Vein S/D Ratio: 1.31P Vein S: 0.47 m/sHR: 95.80 BPMPV | | maxP.27 mmHgPV meanP.72 mmHgPV Vmax: 0.56 m/sPV Vmean: 0.41 m/sPV VTI: | | 12.35 cmRAP: 10 mmHgRVSP: 28.99 mmHgTR maxP.99 mmHgTR Vmax: 2.17 m/sTV A | | Bobby: 0.49 m/sTV Dec [place]: 2.04 m/s2TV Dec Time: 148.23 msTV E Bobby: 0.30 m/sTV | | E/A Ratio: 0.61 Car Icer: GDAuthenticated by: Mo Max [facility] Date/Time: | | 01-01-2015 17:34:32 IMPRESSION: 1. Sinus rhythm.2. A 2-dimensional transthoracic | | echocardiogram with m-mode, spectral and color flow Doppler was perfomed.3. This was a | | technically difficult study with suboptimal apical views.4. Overall left ventricular | | systolic function is low-normal with, an EF between 50 - 55 %.5. The left ventricle | | cavity size is normal.6. Left ventricular wall thickness is normal.7. The diastolic | | filling pattern indicates impaired relaxation consistent with mild dysfunction (Grade | | I).8. The right ventricle is normal in size.9. The left atrial size is normal.10. The | | right atrial size is normal.11. The aortic valve is trileaflet and appears structurally | | normal.12. There is no evidence of aortic regurgitation.13. There is no evidence of | | aortic stenosis.14. The mitral valve is normal.15. There is trace mitral | | regurgitation.16. Mild mitral annular calcification present.17. The tricuspid valve | | appears structurally normal.18. Mild tricuspid regurgitation present.19. There is no | | evidence of pulmonary hypertension.20. The right ventricular systolic pressure | | (pulmonary artery systolic pressure), as measured by Doppler, is 29.00mmHg.21. The | | pulmonic valve was not well visualized.22. Trace pulmonic [id number]. There is no | | pericardial effusion.24. The IVC is normal size (1.5-2.5cm) and collapses <50% with | | sniff, consistent with central venous pressures of 10-15mmHg. | |LVOT Diam: 1.87 cm | |%FS: 27.67 % | |EF(Teich): 54.51 % | |ESV(Teich): 26.81 ml | |IVSs: 1.05 cm | |LVIDs: 2.69 cm | |LVPWs: 1.44 cm | |SV(Teich): 32.14 ml | |RA Major: 3.94 cm | |RVIDd: 2.68 cm | |LAESV(A-L): 27.21 ml | |LAESV Index (A-L): 16.39 ml/m2 | |LAAs A2C: 11.65 cm2 | |LAESV A-L A2C: 28.38 ml | |LAESV MOD A2C: 25.43 ml | |LALs A2C: 4.05 cm | |LAAs A4C: 11.16 cm2 | |LAESV A-L A4C: 24.20 ml | |LAESV MOD A4C: 22.26 ml | |LALs A4C: 4.37 cm | |HR: 100.81 BPM | |AV maxP.59 mmHg | |AV meanP.07 mmHg | |AV Vmax: 1.46 m/s | |AV Vmean: 1.08 m/s | |AV VTI: 22.83 cm | |WYATT Vmax: 1.75 cm2 | |WYATT (VTI): 1.95 cm2 | |LVCI Dopp: 2.81 l/minm2 | |LVCO Dopp: 4.66 l/min | |HR: 104.45 BPM | |LVOT maxP.52 mmHg | |LVOT meanP.03 mmHg | |LVSI Dopp: 26.90 ml/m2 | |LVSV Dopp: 44.66 ml | |LVOT Vmax: 0.93 m/s | |LVOT Vmean: 0.67 m/s | |LVOT VTI: 16.26 cm | |MCO: 380.62 ms | |MV A Bobby: 0.89 m/s | |MV DecT: 94.14 ms | |MV E Bobby: 0.64 m/s | |MV E/A Ratio: 0.72 | |MV PHT: 51.80 ms | |MVA By PHT: 4.24 cm2 | |MV A Dur: 96.88 ms | |IVRT: 93.42 ms | |Septal e': 0.06 m/s | |Septal E/e': 10.30 | |Lateral e': 0.05 m/s | |Lateral E/e': 12.47 | |P Vein D: 0.36 m/s | |P Vein S/D Ratio: 1.31 | |P Vein S: 0.47 m/s | |HR: 95.80 BPM | |PV maxP.27 mmHg | |PV meanP.72 mmHg | |PV Vmax: 0.56 m/s | |PV Vmean: 0.41 m/s | |PV VTI: 12.35 cm | |RAP: 10 mmHg | |RVSP: 28.99 mmHg | |TR maxP.99 mmHg | |TR Vmax: 2.17 m/s | |TV A Bobby: 0.49 m/s | |TV Dec [place]: 2.04 m/s2 | |TV Dec Time: 148.23 ms | |TV E Bobby: 0.30 m/s | |TV E/A Ratio: 0.61 | | | |Car Icer: RICHARD | |Authenticated by: Mo Max MD | |Report Date/Time: 01-01-2015 17:34:32 | | | |IMPRESSION: | |1. Sinus rhythm. | |2. A 2-dimensional transthoracic echocardiogram with m-mode, spectral and color flow Dopple r was perfomed. | |3. This was a technically difficult study with suboptimal apical views. | |4. Overall left ventricular systolic function is low-normal with, an EF between 50 - 55 %. | |5. The left ventricle cavity size is normal. | |6. Left ventricular wall thickness is normal. | |7. The diastolic filling pattern indicates impaired relaxation consistent with mild dysfunc tion (Grade I). | |8. The right ventricle is normal in size. | |9. The left atrial size is normal. | |10. The right atrial size is normal. | |11. The aortic valve is trileaflet and appears structurally normal. | |12. There is no evidence of aortic regurgitation. | |13. There is no evidence of aortic stenosis. | |14. The mitral valve is normal. | |15. There is trace mitral regurgitation. | |16. Mild mitral annular calcification present. | |17. The tricuspid valve appears structurally normal. | |18. Mild tricuspid regurgitation present. | |19. There is no evidence of pulmonary hypertension. | |20. The right ventricular systolic pressure (pulmonary artery systolic pressure), as measur ed by Doppler, is 29.00mmHg. | |21. The pulmonic valve was not well visualized. | |22. Trace pulmonic regurgitation | |23. There is no pericardial effusion. | |24. The IVC is normal size (1.5-2.5cm) and collapses <50% with sniff, consistent with centr al venous pressures of 10-15mmHg. | + + POC Glucose (01/01/2015 7:02 AM PDT) + + + + + + | Component | Value | Ref Range | Performed | Pathologist | | | | | At | Signature | + + + + + + | Glucose, | 150 (H)Comment: Testing | 65 - 99 mg/dL | EXTERNAL | | | Fingerstick | performed at [facility];[address] | | LAB | | | | [address];[place] | | | | | | [address] | | | | + + + + + + + + | Specimen | + + | | + + + +---------+ + + | Performing | Address | City/State/Zipcode | Phone Number | | Organization | | | | + +---------+ + + | EXTERNAL LAB | | | | + +---------+ + + XR Chest 1 Vw (01/01/2015 5:56 AM PDT) + + | Specimen | + + | | + + + + + | Impressions | Performed At | + + + | FINDINGS/ IMPRESSION: Endotracheal tube 4.4 cm above the jeramie. | | | Enteric tube passing below the level of diaphragm. Right internal | | | jugular central venous catheter tip within the proximal right atrium. | | | Bilateral small pleural effusions with adjacent basilar | | | atelectasis. No pneumothorax. Lungs are otherwise clear. No | | | acute osseous abnormality. | | + + + + + + | Narrative | Performed At | + + + | PASTORA TREJO 1945 69 years XR CHEST 1 VIEW 01/01/2015 5:56 | | | AM INDICATION: Tube and line position. COMPARISON: 12/31/12 | | | TECHNIQUE: Chest 1 view, AP view of the chest | | + + + + + | Procedure Note | + + | Bertrand Muniz Conversion - 04/15/2019 8:35 AM PDT PASTORA Dayami [id number] yearsXR CHEST | | 1 VIEW01/01/2015 5:56 AM INDICATION: Tube and line position. COMPARISON: 12/31/12 TECHNIQUE: | | Chest 1 view, AP view of the chest IMPRESSION: FINDINGS/ IMPRESSION: Endotracheal tube | | 4.4 cm above the jeramie. Enteric tube passing below the level of diaphragm. Right | | internal jugular central venous catheter tip within the proximal right atrium. Bilateral | | small pleural effusions with adjacent basilar atelectasis. No pneumothorax. Lungs are | | otherwise clear. No acute osseous abnormality. | |COMPARISON: 12/31/12 | | | |TECHNIQUE: Chest 1 view, AP view of the chest | | | |IMPRESSION: | |FINDINGS/ IMPRESSION: | | | |Endotracheal tube 4.4 cm above the jeramie. Enteric tube passing below the level of diaphrag m. Right internal jugular central venous catheter tip within the proximal right atrium. | | | |Bilateral small pleural effusions with adjacent basilar atelectasis. | | | |No pneumothorax. Lungs are otherwise clear. | | | |No acute osseous abnormality. | | | | | | | + + HIV 1 Screen, Rapid (01/01/2015 5:50 AM PDT) + + + + + + | Component | Value | Ref Range | Performed | Pathologist | | | | | At | Signature | + + + + + + | HIV 1 and 2 | NON REACTIVEComment: | | EXTERNAL | | | Ab, Rapid | Testing performed at | | LAB | | | | [facility];[address] | | | | | | [address];[place] [address] | | | | + + + + + + + + | Specimen | + + | | + + + +---------+ + + | Performing | Address | City/State/Zipcode | Phone Number | | Organization | | | | + +---------+ + + | EXTERNAL LAB | | | | + +---------+ + + Troponin I (01/01/2015 5:50 AM PDT) + + + + + + | Component | Value | Ref Range | Performed | Pathologist | | | | | At | Signature | + + + + + + | Troponin I, | 49.2 ()Comment: 0.00 | 0.00 - 0.10 | EXTERNAL | | | Qual | to 0.10 CONSISTENT | ng/mL | LAB | | | | WITH NORMAL | | | | | | POPULATION0.11 to 0.60 | | | | | | CONSISTENT WITH | | | | | | INCREASED RISK FOR | | | | | | ADVERSE OUTCOMES> 0.60 | | | | | | CONSISTENT | | | | | | WITH WHO CRITERIA FOR | | | | | | ACUTE UT CALLED TO JEANNETTE Mcdonough | | | | | | ON ICU AT 0708 BY | | | | | | TRREAD BACK RESULTS | | | | | | VERIFIEDTesting | | | | | | performed at [facility];[address] | | | | | | [facility];[place], [place] | | | | | | [address] | | | | + + + + + + + + | Specimen | + + | Blood specimen | | (specimen) | + + + +---------+ + + | Performing | Address | City/State/Zipcode | Phone Number | | Organization | | | | + +---------+ + + | EXTERNAL LAB | | | | + +---------+ + + CK Total (01/01/2015 5:50 AM PDT) + + + + + + | Component | Value | Ref Range | Performed | Pathologist | | | | | At | Signature | + + + + + + | CK, Total | 4131 (H)Comment: Testing | 30 - 240 U/L | EXTERNAL | | | | performed at [facility];[address] | | LAB | | | | [address];[place] | | | | | | [address] | | | | + + + + + + + + | Specimen | + + | Blood specimen | | (specimen) | + + + +---------+ + + | Performing | Address | City/State/Zipcode | Phone Number | | Organization | | | | + +---------+ + + | EXTERNAL LAB | | | | + +---------+ + + POC Glucose (01/01/2015 5:47 AM PDT) + + + + + + | Component | Value | Ref Range | Performed | Pathologist | | | | | At | Signature | + + + + + + | Glucose, | 154 (H)Comment: Testing | 65 - 99 mg/dL | EXTERNAL | | | Fingerstick | performed at [facility];[address] | | LAB | | | | [address];[place], [place] | | | | | | [address] | | | | + + + + + + + + | Specimen | + + | | + + + +---------+ + + | Performing | Address | City/State/Zipcode | Phone Number | | Organization | | | | + +---------+ + + | EXTERNAL LAB | | | | + +---------+ + + Hepatic Function Panel (01/01/2015 4:41 AM PDT) + + + + + + | Component | Value | Ref Range | Performed | Pathologist | | | | | At | Signature | + + + + + + | Protein, | 5.0 (L)Comment: Testing | 6.3 - 8.2 g/dL | EXTERNAL | | | Total | performed at [facility], [address] | | LAB | | | | [address], | | | | | | [place] [address] | | | | + + + + + + | Albumin | 3.3Comment: Testing | 3.3 - 4.8 g/dL | EXTERNAL | | | | performed at [facility], [address] | | LAB | | | | [address], | | | | | | [place] [address] | | | | + + + + + + | Bilirubin | 2.7 (H)Comment: Testing | 0.1 - 1.5 mg/dL | EXTERNAL | | | Total | performed at [facility], [address] | | LAB | | | | [address], | | | | | | [place] [address] | | | | + + + + + + | Bilirubin | 1.0 (H)Comment: Testing | 0.0 - 0.3 mg/dL | EXTERNAL | | | Direct | performed at [facility], [address] | | LAB | | | | [address], | | | | | | [place] [address] | | | | + + + + + + | ALP, | 55Comment: Testing | 35 - 115 U/L | EXTERNAL | | | External | performed at [facility], [address] | | LAB | | | | [address], | | | | | | [place] [address] | | | | + + + + + + | AST | 423 (H)Comment: Testing | 10 - 45 U/L | EXTERNAL | | | | performed at [facility], [address] | | LAB | | | | [address], | | | | | | [place] [address] | | | | + + + + + + | ALT | 226 (H)Comment: Testing | 10 - 65 U/L | EXTERNAL | | | | performed at [facility], [address] | | LAB | | | | [address], | | | | | | [place] [address] | | | | + + + + + + + + | Specimen | + + | Blood specimen | | (specimen) | + + + +---------+ + + | Performing | Address | City/State/Zipcode | Phone Number | | Organization | | | | + +---------+ + + | EXTERNAL LAB | | | | + +---------+ + + PATHOLOGY CONSULT REQUEST (01/01/2015 4:40 AM PDT) + + + + + + | Component | Value | Ref Range | Performed | Pathologist | | | | | At | Signature | + + + + + + | Pathologist | Comment: Review of CBC | | EXTERNAL | | | Review 1 | collected 01/01/15. I | | LAB | | | | agree with the automated | | | | | | and manual cell counts. | | | | | | The presence of | | | | | | anemia and | | | | | | thrombocytopenia is | | | | | | confirmed. The | | | | | | neutrophils show a left | | | | | | shift with mild toxic | | | | | | changes. There are no | | | | | | schistocytes or other | | | | | | evidence of peripheral | | | | | | destruction. [place] | | | | | | cells are present, which | | | | | | can be seen in the | | | | | | setting of uremia. The | | | | | | platelets are decreased | | | | | | in number. No | | | | | | platelet clumps are | | | | | | seen. Please correlate | | | | | | clinically. Madhav | | | | | | 01/02/15 BS/trTesting | | | | | | performed at [facility];[address] | | | | | | [address] [facility];[place], [place] | | | | | | [address] | | | | + + + + + + + + | Specimen | + + | | + + + +---------+ + + | Performing | Address | City/State/Zipcode | Phone Number | | Organization | | | | + +---------+ + + | EXTERNAL LAB | | | | + +---------+ + + PTT (01/01/2015 4:40 AM PDT) + + + + + + | Component | Value | Ref Range | Performed | Pathologist | | | | | At | Signature | + + + + + + | aPTT, | 61 (H)Comment: Testing | 23 - 32 seconds | EXTERNAL | | | Patient | performed at [facility];[address] | | LAB | | | | [address];[place], [place] | | | | | | [address] | | | | + + + + + + + + | Specimen | + + | Blood specimen | | (specimen) | + + + +---------+ + + | Performing | Address | City/State/Zipcode | Phone Number | | Organization | | | | + +---------+ + + | EXTERNAL LAB | | | | + +---------+ + + External Lab: CBC (01/01/2015 4:40 AM PDT) + + +---- + + + | Component | Value | Ref Range | Performed | Pathologist | | | | | At | Signature | + + +---- + + + | WBC | 9.24Comment: Testing | 3.8 0 - 11.00 | EXTERNAL | | | | performed at [facility], [address] | K/u L | LAB | | | | [address], | | | | | | [place] [address] | | | | + + +---- + + + | Non- | 3.37 (L)Comment: Testing | 3.7 0 - 5.10 | EXTERNAL | | | Red Blood | performed at [facility], [address] | [address] | LAB | | | Cells | [address], | | | | | Counted | [place] [address] | | | | + + +---- + + + | Hemoglobin | 9.0 (L)Comment: Testing | 11. 3 - 15.5 | EXTERNAL | | | | performed at [facility], [address] | g/d L | LAB | | | | [address], | | | | | | [place] [address] | | | | + + +---- + + + | Hematocrit, | 26.5 (L)Comment: Testing | 34. 0 - 46.0 % | EXTERNAL | | | POC | performed at [facility], [address] | | LAB | | | | [address], | | | | | | [place] [address] | | | | + + +---- + + + | MCV | 78.6 (L)Comment: Testing | 80. 0 - 100.0 fl | EXTERNAL | | | | performed at [facility], [address] | | LAB | | | | [address], | | | | | | [place] [address] | | | | + + +---- + + + | MCH | 26.8 (L)Comment: Testing | 27. 0 - 34.0 pg | EXTERNAL | | | | performed at [facility], [address] | | LAB | | | | [address], | | | | | | [place] [address] | | | | + + +---- + + + | MCHC | 34.2Comment: Testing | 32. 0 - 35.5 | EXTERNAL | | | | performed at [facility], [address] | g/d L | LAB | | | | [address], | | | | | | [place] [address] | | | | + + +---- + + + | RDW-CV | 36.8 (L)Comment: Testing | 37 - 53 fl | EXTERNAL | | | | performed at [facility], [address] | | LAB | | | | [address], | | | | | | [place] [address] | | | | + + +---- + + + | Platelet | 63 (L)Comment: Testing | 150 - 400 K/uL | EXTERNAL | | | Count | performed at [facility], [address] | | LAB | | | Plasma | [address], | | | | | | [place] [address] | | | | + + +---- + + + | MPV | 7.9Comment: Testing | fl | EXTERNAL | | | | performed at [facility], [address] | | LAB | | | | [address], | | | | | | [place] [address] | | | | + + +---- + + + | Differentia | MANUALComment: Testing | | EXTERNAL | | | l Type | performed at [facility], [address] | | LAB | | | [address], | | | | | | [place] [address] | | | | + + +---- + + + | Segmented | 56Comment: Testing | % | EXTERNAL | | | Neutrophils | performed at [facility], [address] | | LAB | | | Manual | [address], | | | | | | [place] [address] | | | | + + +---- + + + | % Bands | 31Comment: Testing | % | EXTERNAL | | | | performed at [facility], [address] | | LAB | | | | [address], | | | | | | [place] [address] | | | | + + +---- + + + | % | 1Comment: Testing | % | EXTERNAL | | | Metamyelocy | performed at [facility], [address] | | LAB | | | [place] | [address], | | | | | | [place] [address] | | | | + + +---- + + + | Lymphocytes | 10Comment: Testing | % | EXTERNAL | | | Manual | performed at [facility], [address] | | LAB | | | | [address], | | | | | | [place] [address] | | | | + + +---- + + + | Monocytes | 2Comment: Testing | % | EXTERNAL | | | Manual | performed at [facility], [address] | | LAB | | | | [address], | | | | | | [place] [address] | | | | + + +---- + + + | Absolute | 5.19Comment: Testing | 1.9 0 - 7.40 | EXTERNAL | | | Neutrophils | performed at [facility], [address] | K/u L | LAB | | | | [address], | | | | | | [place] [address] | | | | + + +---- + + + | Bands | 2.86 (H)Comment: Testing | 0.0 0 - 0.20 | EXTERNAL | | | Manual | performed at [facility], [address] | [address] | LAB | | | | [address], | | | | | | [place] [address] | | | | + + +---- + + + | Absolute | 0.09 (H)Comment: Testing | K/u L | EXTERNAL | | | Metamyelocy | performed at [facility], [address] | | LAB | | | [place] | [address], | | | | | | [place] [address] | | | | + + +---- + + + | Absolute | 0.92 (L)Comment: Testing | 1.0 0 - 3.90 | EXTERNAL | | | Lymphocytes | performed at [facility], [address] | [address] | LAB | | | | [address], | | | | | | [place] [address] | | | | + + +---- + + + | Absolute | 0.18Comment: Testing | 0.0 0 - 0.80 | EXTERNAL | | | Monocytes | performed at [facility], [address] | K/u L | LAB | | | | [address], | | | | | | [place] [address] | | | | + + +---- + + + | Platelet | DECREASEDComment: | | EXTERNAL | | | Estimate | Testing performed at | | LAB | | | | [facility], [address] | | | | | | [place] | | | | | | [address] | | | | + + +---- + + + | RBC | 1+Comment: | | EXTERNAL | | | Morphology | HYPO2+BURRNORMAL PLT | | LAB | | | | MORPHTesting performed | | | | | | at [facility], [address] | | | | | | [place], | | | | | | [place] [address] | | | | | |Testing performed at [facility], [address] [place] [address] | | | | | | | | | | + + +---- + + + + + | Specimen | + + | Blood specimen | | (specimen) | + + + +---------+ + + | Performing | Address | City/State/Zipcode | Phone Number | | Organization | | | | + +---------+ + + | EXTERNAL LAB | | | | + +---------+ + + Hemoglobin A1C (01/01/2015 4:40 AM PDT) + + + + + + | Component | Value | Ref Range | Performed | Pathologist | | | | | At | Signature | + + + + + + | Hemoglobin | 6.0Comment: The [place] | 4.0 - 6.0 % | EXTERNAL | | | A1c | Diabetes Association | | LAB | | | | considers a hemoglobin | | | | | | A1c result of <7.0% to | | | | | | be the goal of diabetic | | | | | | therapy. When results | | | | | | are consistently >8.0%, | | | | | | the ADA suggests | | | | | | reevaluation of the | | | | | | treatment regimen. The | | | | | | testing method used is | | | | | | certified traceable to | | | | | | the Diabetes Control and | | | | | | Complications Trial | | | | | | reference method.Testing | | | | | | performed at [facility], [address] | | | | | [address] [facility], | | | | | | [place] [address] | | | | + + + + + + | Glycohemogl | 126Comment: The ADA | mg/dL | EXTERNAL | | | obin | considers an eAG result | | LAB | | | (GHb),Total | of LT 154 mg/dL to be | | | | | | the goal of diabetic | | | | | | therapy. Estimated | | | | | | Average Glucose | | | | | | calculated from | | | | | | hemoglobin A1c by use of | | | | | | the ADA recommended | | | | | | formula.Testing | | | | | | performed at [facility], [address] | | | | | | [facility], | | | | | | [place] [address] | | | | + + + + + + + + | Specimen | + + | Blood specimen | | (specimen) | + + + +---------+ + + | Performing | Address | City/State/Zipcode | Phone Number | | Organization | | | | + +---------+ + + | EXTERNAL LAB | | | | + +---------+ + + Basic Metabolic Panel (01/01/2015 4:40 AM PDT) + + + + + + | Component | Value | Ref Range | Performed | Pathologist | | | | | At | Signature | + + + + + + | Na | 128 (L)Comment: Testing | 135 - 143 | EXTERNAL | | | | performed at [facility], [address] | mmol/L | LAB | | | | [address], | | | | | | [place] [address] | | | | + + + + + + | K | 3.1 (L)Comment: Testing | 3.5 - 4.9 | EXTERNAL | | | | performed at [facility], [address] | mmol/L | LAB | | | | [address], | | | | | | [place] [address] | | | | + + + + + + | Cl | 94 (L)Comment: Testing | 99 - 109 mmol/L | EXTERNAL | | | | performed at [facility], [address] | | LAB | | | | [address], | | | | | | [place] [address] | | | | + + + + + + | CO2 | 23Comment: Testing | 23 - 32 mmol/L | EXTERNAL | | | | performed at [facility], [address] | | LAB | | | | [address], | | | | | | [place] [address] | | | | + + + + + + | Anion Gap | 14Comment: Testing | 5 - 20 mmol/L | EXTERNAL | | | | performed at [facility], [address] | | LAB | | | | [address], | | | | | | [place] [address] | | | | + + + + + + | Glucose, | 186 (H)Comment: Testing | 65 - 99 mg/dL | EXTERNAL | | | Fasting | performed at [facility], [address] | | LAB | | | | [address], | | | | | | [place] [address] | | | | + + + + + + | BUN | 24Comment: Testing | 8 - 25 mg/dL | EXTERNAL | | | | performed at [facility], [address] | | LAB | | | | [address], | | | | | | [place] [address] | | | | + + + + + + | Creatinine | 1.73 (H)Comment: Testing | 0.50 - 1.00 | EXTERNAL | | | | performed at [facility], [address] | mg/dL | LAB | | | | [address], | | | | | | [place] [address] | | | | + + + + + + | BUN/Creatin | 14Comment: Testing | | EXTERNAL | | | ine Ratio | performed at [facility], [address] | | LAB | | | | [address], | | | | | | [place] [address] | | | | + + + + + + | Calcium | 7.6 (L)Comment: Testing | 8.5 - 10.5 | EXTERNAL | | | | performed at [facility], [address] | mg/dL | LAB | | | | [address], | | | | | | [place] [address] | | | | + + + + + + | Estimated | 31 (L)Comment: GFR <60: | mL/min/1.73m2 | EXTERNAL | | | GFR | CHRONIC KIDNEY DISEASE, | | LAB | | | | IF FOUND OVER A 3 MONTH | | | | | | PERIOD.GFR <15: KIDNEY | | | | | | FAILURE.FOR | | | | | | AMERICANS, MULTIPLY THE | | | | | | CALCULATED GFR BY | | | | | | 1.210.Testing performed | | | | | | at [facility], [address] | | | | | | [address], | | | | | | [place] [address] | | | | + + + + + + + + | Specimen | + + | Blood specimen | | (specimen) | + + + +---------+ + + | Performing | Address | City/State/Zipcode | Phone Number | | Organization | | | | + +---------+ + + | EXTERNAL LAB | | | | + +---------+ + + POC Glucose (01/01/2015 4:25 AM PDT) + + + + + + | Component | Value | Ref Range | Performed | Pathologist | | | | | At | Signature | + + + + + + | Glucose, | 185 (H)Comment: Testing | 65 - 99 mg/dL | EXTERNAL | | | Fingerstick | performed at [facility];[address] | | LAB | | | | [address];[place] | | | | | | [address] | | | | + + + + + + + + | Specimen | + + | | + + + +---------+ + + | Performing | Address | City/State/Zipcode | Phone Number | | Organization | | | | + +---------+ + + | EXTERNAL LAB | | | | + +---------+ + + POC Glucose (01/01/2015 3:22 AM PDT) + + + + + + | Component | Value | Ref Range | Performed | Pathologist | | | | | At | Signature | + + + + + + | Glucose, | 167 (H)Comment: Testing | 65 - 99 mg/dL | EXTERNAL | | | Fingerstick | performed at [facility];[address] | | LAB | | | | [address];[place], [place] | | | | | | [address] | | | | + + + + + + + + | Specimen | + + | | + + + +---------+ + + | Performing | Address | City/State/Zipcode | Phone Number | | Organization | | | | + +---------+ + + | EXTERNAL LAB | | | | + +---------+ + + POC Glucose (01/01/2015 2:07 AM PDT) + + + + + + | Component | Value | Ref Range | Performed | Pathologist | | | | | At | Signature | + + + + + + | Glucose, | 158 (H)Comment: Testing | 65 - 99 mg/dL | EXTERNAL | | | Fingerstick | performed at [facility];[address] | | LAB | | | | [address];[place], [place] | | | | | | [address] | | | | + + + + + + + + | Specimen | + + | | + + + +---------+ + + | Performing | Address | City/State/Zipcode | Phone Number | | Organization | | | | + +---------+ + + | EXTERNAL LAB | | | | + +---------+ + + POC Glucose (01/01/2015 1:03 AM PDT) + + + + + + | Component | Value | Ref Range | Performed | Pathologist | | | | | At | Signature | + + + + + + | Glucose, | 113 (H)Comment: Testing | 65 - 99 mg/dL | EXTERNAL | | | Fingerstick | performed at [facility];[address] | | LAB | | | | [address];[place], [place] | | | | | | [address] | | | | + + + + + + + + | Specimen | + + | | + + + +---------+ + + | Performing | Address | City/State/Zipcode | Phone Number | | Organization | | | | + +---------+ + + | EXTERNAL LAB | | | | + +---------+ + + Troponin I (01/01/2015 12:09 AM PDT) + + + + + + | Component | Value | Ref Range | Performed | Pathologist | | | | | At | Signature | + + + + + + | Troponin I, | 12.5 ()Comment: 0.00 | 0.00 - 0.10 | EXTERNAL | | | Qual | to 0.10 CONSISTENT | ng/mL | LAB | | | | WITH NORMAL | | | | | | POPULATION0.11 to 0.60 | | | | | | CONSISTENT WITH | | | | | | INCREASED RISK FOR | | | | | | ADVERSE OUTCOMES> 0.60 | | | | | | CONSISTENT | | | | | | WITH WHO CRITERIA FOR | | | | | | ACUTE UT RESULT READ | | | | | | BACK BY:MILADIS Gore/ICU ON | | | | | | [phone] AT 0223, | | | | | | VAPTesting performed at | | | | | | [facility];[address] [facility] | | | | | | [facility];[place] [address] | | | | + + + + + + + + | Specimen | + + | | + + + +---------+ + + | Performing | Address | City/State/Zipcode | Phone Number | | Organization | | | | + +---------+ + + | EXTERNAL LAB | | | | + +---------+ + + PTT (01/01/2015 12:09 AM PDT) + + + + + + | Component | Value | Ref Range | Performed | Pathologist | | | | | At | Signature | + + + + + + | aPTT, | 106 ()Comment: CALLED | 23 - 32 seconds | EXTERNAL | | | Patient | TO ZAHRAA Melendez IN ICU AT | | LAB | | | | 0040 BY CD, READ | | | | | | BACKTesting performed at | | | | | | [facility];[address];[place] [address] | | | | + + + + + + + + | Specimen | + + | Blood specimen | | (specimen) | + + + +---------+ + + | Performing | Address | City/State/Zipcode | Phone Number | | Organization | | | | + +---------+ + + | EXTERNAL LAB | | | | + +---------+ + + Potassium (01/01/2015 12:09 AM PDT) + + + + + + | Component | Value | Ref Range | Performed | Pathologist | | | | | At | Signature | + + + + + + | K | 4.0Comment: Testing | 3.5 - 4.9 | EXTERNAL | | | | performed at [facility];[address] | mmol/L | LAB | | | | [address];[place], [place] | | | | | | [address] | | | | + + + + + + + + | Specimen | + + | Blood specimen | | (specimen) | + + + +---------+ + + | Performing | Address | City/State/Zipcode | Phone Number | | Organization | | | | + +---------+ + + | EXTERNAL LAB | | | | + +---------+ + + POC Glucose (12/31/2014 11:54 PM PDT) + + + + + + | Component | Value | Ref Range | Performed | Pathologist | | | | | At | Signature | + + + + + + | Glucose, | 121 (H)Comment: Testing | 65 - 99 mg/dL | EXTERNAL | | | Fingerstick | performed at [facility];[address] | | LAB | | | | [address];[place] | | | | | | [id number] | | | | + + + + + + + + | Specimen | + + | | + + + +---------+ + + | Performing | Address | City/State/Zipcode | Phone Number | | Organization | | | | + +---------+ + + | EXTERNAL LAB | | | | + +---------+ + + POC Glucose (12/31/2014 10:39 PM PDT) + + + + + + | Component | Value | Ref Range | Performed | Pathologist | | | | | At | Signature | + + + + + + | Glucose, | 146 (H)Comment: Testing | 65 - 99 mg/dL | EXTERNAL | | | Fingerstick | performed at [facility];[address] | | LAB | | | | [address];[place], [place] | | | | | | [id number] | | | | + + + + + + + + | Specimen | + + | | + + + +---------+ + + | Performing | Address | City/State/Zipcode | Phone Number | | Organization | | | | + +---------+ + + | EXTERNAL LAB | | | | + +---------+ + + POC Glucose (12/31/2014 9:37 PM PDT) + + + + + + | Component | Value | Ref Range | Performed | Pathologist | | | | | At | Signature | + + + + + + | Glucose, | 115 (H)Comment: Testing | 65 - 99 mg/dL | EXTERNAL | | | Fingerstick | performed at [facility];[address] | | LAB | | | | [address];[place], [place] | | | | | | [id number] | | | | + + + + + + + + | Specimen | + + | | + + + +---------+ + + | Performing | Address | City/State/Zipcode | Phone Number | | Organization | | | | + +---------+ + + | EXTERNAL LAB | | | | + +---------+ + + POC Glucose (12/31/2014 8:30 PM PDT) + + + + + + | Component | Value | Ref Range | Performed | Pathologist | | | | | At | Signature | + + + + + + | Glucose, | 154 (H)Comment: Testing | 65 - 99 mg/dL | EXTERNAL | | | Fingerstick | performed at [facility];[address] | | LAB | | | | [address];[place], [place] | | | | | | [address] | | | | + + + + + + + + | Specimen | + + | | + + + +---------+ + + | Performing | Address | City/State/Zipcode | Phone Number | | Organization | | | | + +---------+ + + | EXTERNAL LAB | | | | + +---------+ + + Magnesium (12/31/2014 7:33 PM PDT) + + + + + + | Component | Value | Ref Range | Performed | Pathologist | | | | | At | Signature | + + + + + + | Magnesium | 2.8 (H)Comment: Testing | 1.7 - 2.4 mg/dL | EXTERNAL | | | | performed at [facility] | | LAB | | | | [address];[place], [place] | | | | | | [address] | | | | + + + + + + + + | Specimen | + + | Blood specimen | | (specimen) | + + + +---------+ + + | Performing | Address | City/State/Zipcode | Phone Number | | Organization | | | | + +---------+ + + | EXTERNAL LAB | | | | + +---------+ + + POC Glucose (12/31/2014 7:17 PM PDT) + + + + + + | Component | Value | Ref Range | Performed | Pathologist | | | | | At | Signature | + + + + + + | Glucose, | 147 (H)Comment: Testing | 65 - 99 mg/dL | EXTERNAL | | | Fingerstick | performed at [facility];[address] | | LAB | | | | [address];[place], [place] | | | | | | [address] | | | | + + + + + + + + | Specimen | + + | | + + + +---------+ + + | Performing | Address | City/State/Zipcode | Phone Number | | Organization | | | | + +---------+ + + | EXTERNAL LAB | | | | + +---------+ + + PTT (12/31/2014 6:29 PM PDT) + + + + + + | Component | Value | Ref Range | Performed | Pathologist | | | | | At | Signature | + + + + + + | aPTT, | 58 (H)Comment: Testing | 23 - 32 seconds | EXTERNAL | | | Patient | performed at [facility];[address] | | LAB | | | | [address];[place] | | | | | | [address] | | | | + + + + + + + + | Specimen | + + | Blood specimen | | (specimen) | + + + +---------+ + + | Performing | Address | City/State/Zipcode | Phone Number | | Organization | | | | + +---------+ + + | EXTERNAL LAB | | | | + +---------+ + + Protime INR (12/31/2014 6:29 PM PDT) + + + + + + | Component | Value | Ref Range | Performed | Pathologist | | | | | At | Signature | + + + + + + | INR | 1.7Comment: REFERENCE | | EXTERNAL | | | | RANGE:0.9 - 1.2 | | LAB | | | | NON-ANTICOAGULATED2.0 | | | | | | - 3.0 ALL OTHER | | | | | | THERAPEUTIC | | | | | | INDICATIONS2.5 - 3.5 | | | | | | MECHANICAL HEART VALVES, | | | | | | RECURRENT OR SYSTEMIC | | | | | | EMBOLISMTesting | | | | | | performed at [facility];[address] | | | | | | [facility];[place], [place] | | | | | | [address] | | | | + + + + + + + + | Specimen | + + | Blood specimen | | (specimen) | + + + +---------+ + + | Performing | Address | City/State/Zipcode | Phone Number | | Organization | | | | + +---------+ + + | EXTERNAL LAB | | | | + +---------+ + + POC Glucose (12/31/2014 6:12 PM PDT) + + + + + + | Component | Value | Ref Range | Performed | Pathologist | | | | | At | Signature | + + + + + + | Glucose, | 175 (H)Comment: Testing | 65 - 99 mg/dL | EXTERNAL | | | Fingerstick | performed at [facility];[address] | | LAB | | | | [address];[place] | | | | | | [address] | | | | + + + + + + + + | Specimen | + + | | + + + +---------+ + + | Performing | Address | City/State/Zipcode | Phone Number | | Organization | | | | + +---------+ + + | EXTERNAL LAB | | | | + +---------+ + + External Lab: CBC (12/31/2014 5:52 PM PDT) + + + + + + | Component | Value | Ref Range | Performed | Pathologist | | | | | At | Signature | + + + + + + | WBC | 7.29Comment: Testing | 3.80 - 11.00 | EXTERNAL | | | | performed at [facility];[address] | K/uL | LAB | | | | [address];[place] | | | | | | [address] | | | | + + + + + + | Non- | 3.65 (L)Comment: Testing | 3.70 - 5.10 | EXTERNAL | | | Red Blood | performed at [facility];[address] | M/uL | LAB | | | Cells | [address];[place] | | | | | Counted | [address] | | | | + + + + + + | Hemoglobin | 9.8 (L)Comment: Testing | 11.3 - 15.5 | EXTERNAL | | | | performed at [facility];[address] | g/dL | LAB | | | | [address];[place] | | | | | | [address] | | | | + + + + + + | Hematocrit, | 28.8 (L)Comment: Testing | 34.0 - 46.0 % | EXTERNAL | | | POC | performed at [facility];[address] | | LAB | | | | [address];[place] | | | | | | [address] | | | | + + + + + + | MCV | 78.8 (L)Comment: Testing | 80.0 - 100.0 fl | EXTERNAL | | | | performed at [facility];[address] | | LAB | | | | [address];[place] | | | | | | [address] | | | | + + + + + + | MCH | 26.8 (L)Comment: Testing | 27.0 - 34.0 pg | EXTERNAL | | | | performed at [facility];[address] | | LAB | | | | [address];[place] | | | | | | [address] | | | | + + + + + + | MCHC | 34.0Comment: Testing | 32.0 - 35.5 | EXTERNAL | | | | performed at [facility];[address] | g/dL | LAB | | | | [address];[place] | | | | | | [address] | | | | + + + + + + | RDW-CV | 36.8 (L)Comment: Testing | 37 - 53 fl | EXTERNAL | | | | performed at [facility];[address] | | LAB | | | | [address];[place] | | | | | | [address] | | | | + + + + + + | Platelet | 77 (L)Comment: Testing | 150 - 400 K/uL | EXTERNAL | | | Count | performed at [facility];[address] | | LAB | | | Plasma | [address];[place] | | | | | | [address] | | | | + + + + + + | MPV | 7.3Comment: Testing | fl | EXTERNAL | | | | performed at [facility];[address] | | LAB | | | | [address];[place] | | | | | | [address] | | | | + + + + + + | Differentia | MANUALComment: Testing | | EXTERNAL | | | l Type | performed at [facility];[address] | | LAB | | | | [address];[place] | | | | | | [address] | | | | + + + + + + | Segmented | 40Comment: Testing | % | EXTERNAL | | | Neutrophils | performed at [facility];[address] | | LAB | | | Manual | [address];[place] | | | | | | [address] | | | | + + + + + + | % Bands | 30Comment: Testing | % | EXTERNAL | | | | performed at [facility];[address] | | LAB | | | | [address];[place] | | | | | | [address] | | | | + + + + + + | % | 4Comment: Testing | % | EXTERNAL | | | Metamyelocy | performed at [facility];[address] | | LAB | | | [place] | [address];[place] | | | | | | [address] | | | | + + + + + + | % | 1Comment: Testing | % | EXTERNAL | | | Myelocytes | performed at [facility];[address] | | LAB | | | | [address];[place] | | | | | | [address] | | | | + + + + + + | Lymphocytes | 19Comment: Testing | % | EXTERNAL | | | Manual | performed at [facility];[address] | | LAB | | | | [address];[place] | | | | | | [address] | | | | + + + + + + | Monocytes | 6Comment: Testing | % | EXTERNAL | | | Manual | performed at [facility];[address] | | LAB | | | | [address];[place] | | | | | | [address] | | | | + + + + + + | Absolute | 2.91Comment: Testing | 1.90 - 7.40 | EXTERNAL | | | Neutrophils | performed at [facility];[address] | K/uL | LAB | | | | [address];[place] | | | | | | [address] | | | | + + + + + + | Bands | 2.19 (H)Comment: Testing | 0.00 - 0.20 | EXTERNAL | | | Manual | performed at [facility];[address] | K/uL | LAB | | | | [address];[place] | | | | | | [address] | | | | + + + + + + | Absolute | 0.29 (H)Comment: Testing | K/uL | EXTERNAL | | | Metamyelocy | performed at [facility];[address] | | LAB | | | [place] | [address];[place] | | | | | | [address] | | | | + + + + + + | Absolute | 0.07 (H)Comment: Testing | K/uL | EXTERNAL | | | Myelocytes | performed at [facility];[address] | | LAB | | | | [address];[place] | | | | | | [address] | | | | + + + + + + | Absolute | 1.39Comment: Testing | 1.00 - 3.90 | EXTERNAL | | | Lymphocytes | performed at [facility];[address] | K/uL | LAB | | | | [address];[place] | | | | | | [address] | | | | + + + + + + | Absolute | 0.44Comment: Testing | 0.00 - 0.80 | EXTERNAL | | | Monocytes | performed at [facility];[address] | K/uL | LAB | | | | [address];[place] | | | | | | [address] | | | | + + + + + + | Platelet | DECREASEDComment: | | EXTERNAL | | | Estimate | Testing performed at | | LAB | | | | [facility];[address];[place] [address] | | | | + + + + + + | RBC | RBC AND PLT MORPHOLOGY | | EXTERNAL | | | Morphology | APPEAR NORMALComment: | | LAB | | | | Testing performed at | | | | | | [facility];[address];[place] [address] | | | | + + + + + + + + | Specimen | + + | Blood specimen | | (specimen) | + + + +---------+ + + | Performing | Address | City/State/Zipcode | Phone Number | | Organization | | | | + +---------+ + + | EXTERNAL LAB | | | | + +---------+ + + Basic Metabolic Panel (12/31/2014 5:52 PM PDT) + + + + + + | Component | Value | Ref Range | Performed | Pathologist | | | | | At | Signature | + + + + + + | Na | 132 (L)Comment: Testing | 135 - 143 | EXTERNAL | | | | performed at [facility];[address] | mmol/L | LAB | | | | [address];[place] | | | | | | [address] | | | | + + + + + + | K | 3.2 (L)Comment: Testing | 3.5 - 4.9 | EXTERNAL | | | | performed at [facility];[address] | mmol/L | LAB | | | | [address];[place] | | | | | | [address] | | | | + + + + + + | Cl | 97 (L)Comment: Testing | 99 - 109 mmol/L | EXTERNAL | | | | performed at [facility];[address] | | LAB | | | | [address];[place] | | | | | | [address] | | | | + + + + + + | CO2 | 21 (L)Comment: Testing | 23 - 32 mmol/L | EXTERNAL | | | | performed at [facility];[address] | | LAB | | | | [address];[place] | | | | | | [address] | | | | + + + + + + | Anion Gap | 17Comment: Testing | 5 - 20 mmol/L | EXTERNAL | | | | performed at [facility];[address] | | LAB | | | | [address];[place] | | | | | | [address] | | | | + + + + + + | Glucose, | 178 (H)Comment: Testing | 65 - 99 mg/dL | EXTERNAL | | | Fasting | performed at [facility];[address] | | LAB | | | | [address];[place] | | | | | | [address] | | | | + + + + + + | BUN | 25Comment: Testing | 8 - 25 mg/dL | EXTERNAL | | | | performed at [facility];[address] | | LAB | | | | [address];[place] | | | | | | [address] | | | | + + + + + + | Creatinine | 1.98 (H)Comment: Testing | 0.50 - 1.00 | EXTERNAL | | | | performed at [facility];[address] | mg/dL | LAB | | | | [address];[place] | | | | | | [address] | | | | + + + + + + | BUN/Creatin | 13Comment: Testing | | EXTERNAL | | | ine Ratio | performed at [facility];[address] | | LAB | | | | [address];[place] | | | | | | [address] | | | | + + + + + + | Calcium | 7.4 (L)Comment: Testing | 8.5 - 10.5 | EXTERNAL | | | | performed at [facility];[address] | mg/dL | LAB | | | | [address];[place] | | | | | | [address] | | | | + + + + + + | Estimated | 27 (L)Comment: GFR <60: | mL/min/1.73m2 | EXTERNAL | | | GFR | CHRONIC KIDNEY DISEASE, | | LAB | | | | IF FOUND OVER A 3 MONTH | | | | | | PERIOD.GFR <15: KIDNEY | | | | | | FAILURE.FOR | | | | | | AMERICANS, MULTIPLY THE | | | | | | CALCULATED GFR BY | | | | | | 1.210.Testing performed | | | | | | at [facility];[address] [place] [address] | | | | | | [facility];[place] [address] | | | | + + + + + + + + | Specimen | + + | Blood specimen | | (specimen) | + + + +---------+ + + | Performing | Address | City/State/Zipcode | Phone Number | | Organization | | | | + +---------+ + + | EXTERNAL LAB | | | | + +---------+ + + POC Glucose (12/31/2014 5:26 PM PDT) + + + + + + | Component | Value | Ref Range | Performed | Pathologist | | | | | At | Signature | + + + + + + | Glucose, | 188 (H)Comment: Testing | 65 - 99 mg/dL | EXTERNAL | | | Fingerstick | performed at [facility];[address] | | LAB | | | | [address];[place] | | | | | | [address] | | | | + + + + + + + + | Specimen | + + | | + + + +---------+ + + | Performing | Address | City/State/Zipcode | Phone Number | | Organization | | | | + +---------+ + + | EXTERNAL LAB | | | | + +---------+ + + ECG 12 lead (12/31/2014 5:24 PM PDT) + + + + + + | Component | Value | Ref Range | Performed | Pathologist | | | | | At | Signature | + + + + + + | DIAGNOSIS: | Accelerated Junctional | | EXTERNAL | | | | rhythmLow voltage | | LAB | | | | QRSCannot rule out | | | | | | Anterior infarct , | | | | | | newInferolateral injury | | | | | | pattern ACUTE UT / | | | | | | STEMI Abnormal | | | | | | ECGWhen compared with | | | | | | ECG of 31-DEC-2014 | | | | | | 17:24,Acute Anterior | | | | | | infarct is now | | | | | | PresentConfirmed by | | | | | | PEG MAX ([id number]) on | | | | | | 01/01/2015 11:50:59 AM | | | | + + + + + + + + | Specimen | + + | | + + + + + | Narrative | Performed At | + + + | Historically converted procedure from [facility] | EXTERNAL LAB | + + + + +---------+ + + | Performing | Address | City/State/Zipcode | Phone Number | | Organization | | | | + +---------+ + + | EXTERNAL LAB | | | | + +---------+ + + CK-MB (12/31/2014 4:22 PM PDT) + + + + + -+ | Component | Value | Ref Range | Performed | Pathologist | | | | | At | Signature | + + + + + -+ | CK-MB | 32.6 (H)Comment: Testing | 0.5 - 3.6 ng/mL | EXTERNAL | | | | performed at [facility];[address] | | LAB | | | | [address];[place] | | | | | | [address] | | | | + + + + + -+ | CK-MB Index | 0.7Comment: CK INDEX | | EXTERNAL | | | | INTERPRETATION: | | LAB | | | | MMB ng/mL | | | | | | | | | | | |CK INDEX INTERPRETATION: | | | | | | MMB ng/mL | | | | | | | | | | + + + + + -+ + + | Specimen | + + | | + + + +---------+ + + | Performing | Address | City/State/Zipcode | Phone Number | | Organization | | | | + +---------+ + + | EXTERNAL LAB | | | | + +---------+ + + Troponin I (12/31/2014 4:22 PM PDT) + + + + + + | Component | Value | Ref Range | Performed | Pathologist | | | | | At | Signature | + + + + + + | Troponin I, | 7.52 ()Comment: 0.00 | 0.00 - 0.10 | EXTERNAL | | | Qual | to 0.10 CONSISTENT | ng/mL | LAB | | | | WITH NORMAL | | | | | | POPULATION0.11 to 0.60 | | | | | | CONSISTENT WITH | | | | | | INCREASED RISK FOR | | | | | | ADVERSE OUTCOMES> 0.60 | | | | | | CONSISTENT | | | | | | WITH WHO CRITERIA FOR | | | | | | ACUTE UT CALLED TO | | | | | | ICU/KATIE Robison BY [id number] | | | | | | READ BACK RESULTS | | | | | | VERIFIEDTesting | | | | | | performed at [facility] | | | | | | [address] [facility];[place], [place] | | | | | | [address] | | | | + + + + + + + + | Specimen | + + | Blood specimen | | (specimen) | + + + +---------+ + + | Performing | Address | City/State/Zipcode | Phone Number | | Organization | | | | + +---------+ + + | EXTERNAL LAB | | | | + +---------+ + + Potassium (12/31/2014 4:22 PM PDT) + + + + + + | Component | Value | Ref Range | Performed | Pathologist | | | | | At | Signature | + + + + + + | K | 3.6Comment: Testing | 3.5 - 4.9 | EXTERNAL | | | | performed at [facility];[address] | mmol/L | LAB | | | | [address];[place] | | | | | | [address] | | | | + + + + + + + + | Specimen | + + | Blood specimen | | (specimen) | + + + +---------+ + + | Performing | Address | City/State/Zipcode | Phone Number | | Organization | | | | + +---------+ + + | EXTERNAL LAB | | | | + +---------+ + + Magnesium (12/31/2014 4:22 PM PDT) + + + + + + | Component | Value | Ref Range | Performed | Pathologist | | | | | At | Signature | + + + + + + | Magnesium | 1.7Comment: Testing | 1.7 - 2.4 mg/dL | EXTERNAL | | | | performed at [facility];[address] | | LAB | | | | [address];[place], [place] | | | | | | [address] | | | | + + + + + + + + | Specimen | + + | Blood specimen | | (specimen) | + + + +---------+ + + | Performing | Address | City/State/Zipcode | Phone Number | | Organization | | | | + +---------+ + + | EXTERNAL LAB | | | | + +---------+ + + CK Total (12/31/2014 4:22 PM PDT) + + + + + + | Component | Value | Ref Range | Performed | Pathologist | | | | | At | Signature | + + + + + + | CK, Total | 4956 (H)Comment: Testing | 30 - 240 U/L | EXTERNAL | | | | performed at [facility];[address] | | LAB | | | | [address];[place] | | | | | | [address] | | | | + + + + + + + + | Specimen | + + | Blood specimen | | (specimen) | + + + +---------+ + + | Performing | Address | City/State/Zipcode | Phone Number | | Organization | | | | + +---------+ + + | EXTERNAL LAB | | | | + +---------+ + + POC Glucose (12/31/2014 4:18 PM PDT) + + + + + + | Component | Value | Ref Range | Performed | Pathologist | | | | | At | Signature | + + + + + + | Glucose, | 196 (H)Comment: Testing | 65 - 99 mg/dL | EXTERNAL | | | Fingerstick | performed at [facility];[address] | | LAB | | | | [address];[place] | | | | | | [address] | | | | + + + + + + + + | Specimen | + + | | + + + +---------+ + + | Performing | Address | City/State/Zipcode | Phone Number | | Organization | | | | + +---------+ + + | EXTERNAL LAB | | | | + +---------+ + + POC Glucose (12/31/2014 3:12 PM PDT) + + + + + + | Component | Value | Ref Range | Performed | Pathologist | | | | | At | Signature | + + + + + + | Glucose, | 230 (H)Comment: Testing | 65 - 99 mg/dL | EXTERNAL | | | Fingerstick | performed at [facility];[address] | | LAB | | | | [address];[place], [place] | | | | | | [address] | | | | + + + + + + + + | Specimen | + + | | + + + +---------+ + + | Performing | Address | City/State/Zipcode | Phone Number | | Organization | | | | + +---------+ + + | EXTERNAL LAB | | | | + +---------+ + + POC Glucose (12/31/2014 2:11 PM PDT) + + + + + + | Component | Value | Ref Range | Performed | Pathologist | | | | | At | Signature | + + + + + + | Glucose, | 239 (H)Comment: Testing | 65 - 99 mg/dL | EXTERNAL | | | Fingerstick | performed at [facility];[address] | | LAB | | | | [address];[place] | | | | | | [address] | | | | + + + + + + + + | Specimen | + + | | + + + +---------+ + + | Performing | Address | City/State/Zipcode | Phone Number | | Organization | | | | + +---------+ + + | EXTERNAL LAB | | | | + +---------+ + + POC Glucose (12/31/2014 1:06 PM PDT) + + + + + + | Component | Value | Ref Range | Performed | Pathologist | | | | | At | Signature | + + + + + + | Glucose, | 345 (H)Comment: Testing | 65 - 99 mg/dL | EXTERNAL | | | Fingerstick | performed at [facility];[address] | | LAB | | | | [address];[place] | | | | | | [address] | | | | + + + + + + + + | Specimen | + + | | + + + +---------+ + + | Performing | Address | City/State/Zipcode | Phone Number | | Organization | | | | + +---------+ + + | EXTERNAL LAB | | | | + +---------+ + + Calcium, Ionized (12/31/2014 12:42 PM PDT) + + + + + + | Component | Value | Ref Range | Performed | Pathologist | | | | | At | Signature | + + + + + + | Calcium | 0.86 (L)Comment: Testing | 1.08 - 1.25 | EXTERNAL | | | (Calc) | performed at [facility];[address] | mmol/L | LAB | | | | [address];[place] | | | | | | [address] | | | | + + + + + + | pH, Bld | 7.408Comment: Testing | 7.300 - 7.450 | EXTERNAL | | | | performed at [facility];[address] | | LAB | | | | [address];[place], [place] | | | | | | [address] | | | | + + + + + + + + | Specimen | + + | Blood specimen | | (specimen) | + + + +---------+ + + | Performing | Address | City/State/Zipcode | Phone Number | | Organization | | | | + +---------+ + + | EXTERNAL LAB | | | | + +---------+ + + Basic Metabolic Panel (12/31/2014 12:42 PM PDT) + + + + + + | Component | Value | Ref Range | Performed | Pathologist | | | | | At | Signature | + + + + + + | Na | 129 (L)Comment: Testing | 135 - 143 | EXTERNAL | | | | performed at [facility];[address] | mmol/L | LAB | | | | [address];[place] | | | | | | [address] | | | | + + + + + + | K | 3.0 (L)Comment: Testing | 3.5 - 4.9 | EXTERNAL | | | | performed at [facility];[address] | mmol/L | LAB | | | | [address];[place] | | | | | | [address] | | | | + + + + + + | Cl | 97 (L)Comment: Testing | 99 - 109 mmol/L | EXTERNAL | | | | performed at [facility];[address] | | LAB | | | | [address];[place] | | | | | | [address] | | | | + + + + + + | CO2 | 19 (L)Comment: Testing | 23 - 32 mmol/L | EXTERNAL | | | | performed at [facility];[address] | | LAB | | | | [address];[place] | | | | | | [address] | | | | + + + + + + | Anion Gap | 16Comment: Testing | 5 - 20 mmol/L | EXTERNAL | | | | performed at [facility];[address] | | LAB | | | | [address];[place] | | | | | | [address] | | | | + + + + + + | Glucose, | 276 (H)Comment: Testing | 65 - 99 mg/dL | EXTERNAL | | | Fasting | performed at [facility];[address] | | LAB | | | | [address];[place] | | | | | | [address] | | | | + + + + + + | BUN | 26 (H)Comment: Testing | 8 - 25 mg/dL | EXTERNAL | | | | performed at [facility];[address] | | LAB | | | | [address];[place] | | | | | | [address] | | | | + + + + + + | Creatinine | 2.18 (H)Comment: Testing | 0.50 - 1.00 | EXTERNAL | | | | performed at [facility];[address] | mg/dL | LAB | | | | [address];[place] | | | | | | [address] | | | | + + + + + + | BUN/Creatin | 12Comment: Testing | | EXTERNAL | | | ine Ratio | performed at [facility];[address] | | LAB | | | | [address];[place] | | | | | | [address] | | | | + + + + + + | Calcium | 6.1 (L)Comment: Testing | 8.5 - 10.5 | EXTERNAL | | | | performed at [facility];[address] | mg/dL | LAB | | | | [address];[place], [place] | | | | | | [address] | | | | + + + + + + | Estimated | 24 (L)Comment: GFR <60: | mL/min/1.73m2 | EXTERNAL | | | GFR | CHRONIC KIDNEY DISEASE, | | LAB | | | | IF FOUND OVER A 3 MONTH | | | | | | PERIOD.GFR <15: KIDNEY | | | | | | FAILURE.FOR | | | | | | AMERICANS, MULTIPLY THE | | | | | | CALCULATED GFR BY | | | | | | 1.210.Testing performed | | | | | | at [facility];[address] | | | | | [address];[place] [address] | | | | + + + + + + + + | Specimen | + + | Blood specimen | | (specimen) | + + + +---------+ + + | Performing | Address | City/State/Zipcode | Phone Number | | Organization | | | | + +---------+ + + | EXTERNAL LAB | | | | + +---------+ + + Lactic Acid (12/31/2014 12:41 PM PDT) + + + + + + | Component | Value | Ref Range | Performed | Pathologist | | | | | At | Signature | + + + + + + | Lactate | 3.0 (H)Comment: Testing | 0.4 - 2.0 | EXTERNAL | | | | performed at [facility];[address] | mmol/L | LAB | | | | [address];[place] | | | | | | [address] | | | | + + + + + + + + | Specimen | + + | Blood specimen | | (specimen) | + + + +---------+ + + | Performing | Address | City/State/Zipcode | Phone Number | | Organization | | | | + +---------+ + + | EXTERNAL LAB | | | | + +---------+ + + POC Glucose (12/31/2014 11:57 AM PDT) + + + + + + | Component | Value | Ref Range | Performed | Pathologist | | | | | At | Signature | + + + + + + | Glucose, | 313 (H)Comment: Testing | 65 - 99 mg/dL | EXTERNAL | | | Fingerstick | performed at [facility];[address] | | LAB | | | | [address];[place], [place] | | | | | | [address] | | | | + + + + + + + + | Specimen | + + | | + + + +---------+ + + | Performing | Address | City/State/Zipcode | Phone Number | | Organization | | | | + +---------+ + + | EXTERNAL LAB | | | | + +---------+ + + POC Glucose (12/31/2014 9:39 AM PDT) + + + + + + | Component | Value | Ref Range | Performed | Pathologist | | | | | At | Signature | + + + + + + | Glucose, | 347 (H)Comment: Testing | 65 - 99 mg/dL | EXTERNAL | | | Fingerstick | performed at [facility];[address] | | LAB | | | | [address];[place] | | | | | | [address] | | | | + + + + + + + + | Specimen | + + | | + + + +---------+ + + | Performing | Address | City/State/Zipcode | Phone Number | | Organization | | | | + +---------+ + + | EXTERNAL LAB | | | | + +---------+ + + POC Glucose (12/31/2014 6:52 AM PDT) + + + + + + | Component | Value | Ref Range | Performed | Pathologist | | | | | At | Signature | + + + + + + | Glucose, | 360 (H)Comment: Testing | 65 - 99 mg/dL | EXTERNAL | | | Fingerstick | performed at [facility];[address] | | LAB | | | | [address];[place] | | | | | | [address] | | | | + + + + + + + + | Specimen | + + | | + + + +---------+ + + | Performing | Address | City/State/Zipcode | Phone Number | | Organization | | | | + +---------+ + + | EXTERNAL LAB | | | | + +---------+ + + CK-MB (12/31/2014 6:33 AM PDT) + + + + + -+ | Component | Value | Ref Range | Performed | Pathologist | | | | | At | Signature | + + + + + -+ | CK-MB | 35.9 (H)Comment: Testing | 0.5 - 3.6 ng/mL | EXTERNAL | | | | performed at [facility];[address] | | LAB | | | | [address];[place] | | | | | | [address] | | | | + + + + + -+ | CK-MB Index | 0.6Comment: CK INDEX | | EXTERNAL | | | | INTERPRETATION: | | LAB | | | | MMB ng/mL | | | | | | | | | | | |CK INDEX INTERPRETATION: | | | | | | MMB ng/mL | | | | | | | | | | + + + + + -+ + + | Specimen | + + | | + + + +---------+ + + | Performing | Address | City/State/Zipcode | Phone Number | | Organization | | | | + +---------+ + + | EXTERNAL LAB | | | | + +---------+ + + Troponin I (12/31/2014 6:33 AM PDT) + + + + + + | Component | Value | Ref Range | Performed | Pathologist | | | | | At | Signature | + + + + + + | Troponin I, | 0.121 (H)Comment: 0.00 | 0.00 - 0.10 | EXTERNAL | | | Qual | to 0.10 CONSISTENT | ng/mL | LAB | | | | WITH NORMAL | | | | | | POPULATION0.11 to 0.60 | | | | | | CONSISTENT WITH | | | | | | INCREASED RISK FOR | | | | | | ADVERSE OUTCOMES> 0.60 | | | | | | CONSISTENT | | | | | | WITH WHO CRITERIA FOR | | | | | | ACUTE UT Testing | | | | | | performed at [facility];[address] | | | | | | [address];[place], [place] | | | | | | [address] | | | | + + + + + + + + | Specimen | + + | Blood specimen | | (specimen) | + + + +---------+ + + | Performing | Address | City/State/Zipcode | Phone Number | | Organization | | | | + +---------+ + + | EXTERNAL LAB | | | | + +---------+ + + Phosphorus (12/31/2014 6:33 AM PDT) + + + + + + | Component | Value | Ref Range | Performed | Pathologist | | | | | At | Signature | + + + + + + | PHOSPHORUS | 2.3Comment: Testing | 2.3 - 4.8 mg/dL | EXTERNAL | | | | performed at [facility];[address] | | LAB | | | | [address];[place] | | | | | | [address] | | | | + + + + + + + + | Specimen | + + | Blood specimen | | (specimen) | + + + +---------+ + + | Performing | Address | City/State/Zipcode | Phone Number | | Organization | | | | + +---------+ + + | EXTERNAL LAB | | | | + +---------+ + + Magnesium (12/31/2014 6:33 AM PDT) + + + + + + | Component | Value | Ref Range | Performed | Pathologist | | | | | At | Signature | + + + + + + | Magnesium | 1.3 (L)Comment: Testing | 1.7 - 2.4 mg/dL | EXTERNAL | | | | performed at [facility];[address] | | LAB | | | | [address];[place], [place] | | | | | | [address] | | | | + + + + + + + + | Specimen | + + | Blood specimen | | (specimen) | + + + +---------+ + + | Performing | Address | City/State/Zipcode | Phone Number | | Organization | | | | + +---------+ + + | EXTERNAL LAB | | | | + +---------+ + + Lactic Acid (12/31/2014 6:33 AM PDT) + + + + + + | Component | Value | Ref Range | Performed | Pathologist | | | | | At | Signature | + + + + + + | Lactate | 2.4 (H)Comment: Testing | 0.4 - 2.0 | EXTERNAL | | | | performed at [facility];[address] | mmol/L | LAB | | | | [address];[place], [place] | | | | | | [address] | | | | + + + + + + + + | Specimen | + + | Blood specimen | | (specimen) | + + + +---------+ + + | Performing | Address | City/State/Zipcode | Phone Number | | Organization | | | | + +---------+ + + | EXTERNAL LAB | | | | + +---------+ + + CK Total (12/31/2014 6:33 AM PDT) + + + + + + | Component | Value | Ref Range | Performed | Pathologist | | | | | At | Signature | + + + + + + | CK, Total | 6104 (H)Comment: Testing | 30 - 240 U/L | EXTERNAL | | | | performed at [facility];[address] | | LAB | | | | [address];[place] | | | | | | [address] | | | | + + + + + + + + | Specimen | + + | Blood specimen | | (specimen) | + + + +---------+ + + | Performing | Address | City/State/Zipcode | Phone Number | | Organization | | | | + +---------+ + + | EXTERNAL LAB | | | | + +---------+ + + Basic Metabolic Panel (12/31/2014 6:33 AM PDT) + + + + + + | Component | Value | Ref Range | Performed | Pathologist | | | | | At | Signature | + + + + + + | Na | 128 (L)Comment: Testing | 135 - 143 | EXTERNAL | | | | performed at [facility];[address] | mmol/L | LAB | | | | [address];[place] | | | | | | [address] | | | | + + + + + + | K | 2.6 (LL)Comment: CALLED | 3.5 - 4.9 | EXTERNAL | | | | NURSING UNITREAD BACK | mmol/L | LAB | | | | RESULTS VERIFIEDJENNIFER | | | | | | G. IN ICU AT 0719 BY | | | | | | CRKTesting performed at | | | | | | [facility];[address];[place] [address] | | | | + + + + + + | Cl | 95 (L)Comment: Testing | 99 - 109 mmol/L | EXTERNAL | | | | performed at [facility];[address] | | LAB | | | | [address];[place] | | | | | | [address] | | | | + + + + + + | CO2 | 17 (L)Comment: Testing | 23 - 32 mmol/L | EXTERNAL | | | | performed at [facility];[address] | | LAB | | | | [address];[place] | | | | | | [address] | | | | + + + + + + | Anion Gap | 19Comment: Testing | 5 - 20 mmol/L | EXTERNAL | | | | performed at [facility];[address] | | LAB | | | | [address];[place] | | | | | | [address] | | | | + + + + + + | Glucose, | 346 (H)Comment: Testing | 65 - 99 mg/dL | EXTERNAL | | | Fasting | performed at [facility];[address] | | LAB | | | | [address];[place] | | | | | | [address] | | | | + + + + + + | BUN | 28 (H)Comment: Testing | 8 - 25 mg/dL | EXTERNAL | | | | performed at [facility];[address] | | LAB | | | | [address];[place] | | | | | | [address] | | | | + + + + + + | Creatinine | 2.07 (H)Comment: Testing | 0.50 - 1.00 | EXTERNAL | | | | performed at [facility];[address] | mg/dL | LAB | | | | [address];[place] | | | | | | [address] | | | | + + + + + + | BUN/Creatin | 13Comment: Testing | | EXTERNAL | | | ine Ratio | performed at [facility];[address] | | LAB | | | | [address];[place] | | | | | | [address] | | | | + + + + + + | Calcium | 6.2 (L)Comment: Testing | 8.5 - 10.5 | EXTERNAL | | | | performed at [facility];[address] | mg/dL | LAB | | | | [address];[place] | | | | | | [address] | | | | + + + + + + | Estimated | 25 (L)Comment: GFR <60: | mL/min/1.73m2 | EXTERNAL | | | GFR | CHRONIC KIDNEY DISEASE, | | LAB | | | | IF FOUND OVER A 3 MONTH | | | | | | PERIOD.GFR <15: KIDNEY | | | | | | FAILURE.FOR | | | | | | AMERICANS, MULTIPLY THE | | | | | | CALCULATED GFR BY | | | | | | 1.210.Testing performed | | | | | | at [facility];[address];[place] [address] | | | | + + + + + + + + | Specimen | + + | Blood specimen | | (specimen) | + + + +---------+ + + | Performing | Address | City/State/Zipcode | Phone Number | | Organization | | | | + +---------+ + + | EXTERNAL LAB | | | | + +---------+ + + XR Chest 1 Vw (12/31/2014 5:31 AM PDT) + + | Specimen | + + | | + + + + + | Impressions | Performed At | + + + | 1. Overall no interval change compared to the prior study. | | | Bilateral lower lobe airspace densities/infiltrate and small moderate | | | sized bilateral effusion | | + + + + + + | Narrative | Performed At | + + + | PASTORA TREJO XR CHEST 1 VIEW 12/31/2014 5:31 AM HISTORY: 69 | | | years. Female. Critical care unit patient with respiratory failure | | | TECHNIQUE: XR CHEST 1 VIEW. AP portable view of the chest 0502 | | | hrs.. Total of 1 images obtained. COMPARISON: Similar study | | | of 0005 hours this morning FINDINGS: Endotracheal tube tip is in | | | the mid trachea nasogastric tube extends to the stomach right IJ | | | central venous catheter tip at the atriocaval junction bilateral lower | | | lobe airspace densities right larger than left and bilateral small to | | | moderate-sized effusions also unchanged. No pneumothorax. No new | | + + + + + | Procedure Note | + + | Bertrand Muniz Conversion - 04/15/2019 8:35 AM PDT PASTORA A IRWINXR CHEST 1 VIEW12/31/2014 | | 5:31 AM HISTORY:69 years. Female. Critical care unit patient with respiratory failure | | TECHNIQUE:XR CHEST 1 VIEW. AP portable view of the chest 0502 hrs.. Total of 1 images | | obtained. COMPARISON:Similar study of 0005 hours this morning FINDINGS:Endotracheal tube | | tip is in the mid trachea nasogastric tube extends to the stomach right IJ central | | venous catheter tip at the atriocaval junction bilateral lower lobe airspace densities | | right larger than left and bilateral small to moderate-sized effusions also unchanged. | | No pneumothorax. No new IMPRESSION: 1. Overall no interval change compared to the prior | | study. Bilateral lower lobe airspace densities/infiltrate and small moderate sized | | bilateral effusion | |COMPARISON: | |Similar study of 0005 hours this morning | | | |FINDINGS: | |Endotracheal tube tip is in the mid trachea nasogastric tube extends to the stomach right I J central venous catheter tip at the atriocaval junction bilateral lower lobe airspace densi ties right larger than left and bilateral small to moderate-sized | |effusions also unchanged. No pneumothorax. No new | | | |IMPRESSION: | |1. Overall no interval change compared to the prior study. Bilateral lower lobe airspace d ensities/infiltrate and small moderate sized bilateral effusion | | | | | | | | | + + CT Chest Abdomen Pelvis wo Contrast (12/31/2014 4:28 AM PDT) + + | Specimen | + + | | + + + + + | Impressions | Performed At | + + + | 1. Large bilateral lower lobe consolidations and small effusions, | | | suspicious for pneumonia. 2. Pancolitis. C. difficile colitis is | | | possible. 3. NG tube tip in the transverse duodenum. RADIA | | | Electronically signed by Vasyl Silver MD on Dec 31 2014 | | | 4:59AM Referring Provider Line: [phone] ID: [id number] | | + + + + + + | Narrative | Performed At | + + + | EXAM: CT CHEST, ABDOMEN AND PELVIS EXAM DATE: 12/31/2014 04:28 | | | AM. CLINICAL HISTORY: Renal failure. Sepsis. Respiratory failure. | | | Diarrhea. COMPARISONS: None. TECHNIQUE: Routine helical CT | | | imaging was performed through the chest, abdomen, and pelvis. IV | | | contrast: None due to renal failure. Enteric contrast: Yes. | | | Reconstructions: Coronal and sagittal. FINDINGS: Lungs/Pleura: | | | Large bilateral lower lobe consolidations and small effusions. | | | Mediastinum: Grossly unremarkable noncontrast study. Endotracheal tube | | | appears to be in appropriate position. Noncontrast abdominal | | | organs: Peritoneal Cavity/Bowel: NG tube tip in the transverse | | | duodenum. Edematous colon throughout with mild pericolonic stranding. | | | Bowel otherwise appears unremarkable. No free air. Mild free fluid in | | | the pelvis. Rectal bag noted. Pelvic Organs: Bladder contains | | | Bonner catheter. No adnexal masses seen. Vasculature: No aneurysms | | | or other significant abnormality. Bones: No significant | | | abnormality. Other: None. | | + + + + + | Procedure Note | + + | Flavio, Rad Conversion - 04/15/2019 8:35 AM PDT EXAM:CT CHEST, ABDOMEN AND PELVIS EXAM | | DATE: 12/31/2014 04:28 AM. CLINICAL HISTORY: Renal failure. Sepsis. Respiratory failure. | | Diarrhea. COMPARISONS: None. TECHNIQUE: Routine helical CT imaging was performed through | | the chest, abdomen, and pelvis. IV contrast: None due to renal failure. Enteric | | contrast: Yes. Reconstructions: Coronal and sagittal. FINDINGS:Lungs/Pleura: Large | | bilateral lower lobe consolidations and small effusions. Mediastinum: Grossly | | unremarkable noncontrast study. Endotracheal tube appears to be in appropriate position. | | Noncontrast abdominal organs: Peritoneal Cavity/Bowel: NG tube tip in the transverse | | duodenum. Edematous colon throughout with mild pericolonic stranding. Bowel otherwise | | appears unremarkable. No free air. Mild free fluid in the pelvis. Rectal bag noted. | | Pelvic Organs: Bladder contains Bonner catheter. No adnexal masses seen. Vasculature: No | | aneurysms or other significant abnormality. Bones: No significant abnormality. Other: | | None. IMPRESSION: 1. Large bilateral lower lobe consolidations and small effusions, | | suspicious for pneumonia.2. Pancolitis. C. difficile colitis is possible.3. NG tube tip | | in the transverse duodenum. RADIA Electronically signed by Vasyl Silver MD on December 4:59AM Referring Provider Line: [phone] ID: [id number] | |Noncontrast abdominal organs: | | | |Peritoneal Cavity/Bowel: NG tube tip in the transverse duodenum. Edematous colon throughout with mild pericolonic stranding. Bowel otherwise appears unremarkable. No free air. Mild fr ee fluid in the pelvis. Rectal bag noted. | | | |Pelvic Organs: Bladder contains Bonner catheter. No adnexal masses seen. | | | |Vasculature: No aneurysms or other significant abnormality. | | | |Bones: No significant abnormality. | | | |Other: None. | | | |IMPRESSION: | | | |1. Large bilateral lower lobe consolidations and small effusions, suspicious for pneumonia. | |2. Pancolitis. C. difficile colitis is possible. | |3. NG tube tip in the transverse duodenum. | | | | | |RADIA | | | | Electronically signed by Vasyl Silver MD on Dec 31 2014 4:59AM Referring Provider Marcella e: [phone] ID: [id number] | + + External Lab: CBC (12/31/2014 3:45 AM PDT) + + + + + + | Component | Value | Ref Range | Performed | Pathologist | | | | | At | Signature | + + + + + + | WBC | 1.15 (LL)Comment: RESULT | 3.80 - 11.00 | EXTERNAL | | | | READ BACK BY:SCOTT Jacobson | LAB | | | | G, ICU, [id number], [id number], | | | | | | EBTesting performed at | | | | | | [facility], [address] | | | | | | [place] | | | | | | [address] | | | | + + + + + + | Non- | 3.52 (L)Comment: Testing | 3.70 - 5.10 | EXTERNAL | | | Red Blood | performed at [facility], [address] | M/uL | LAB | | | Cells | [address], | | | | | Counted | [place] [address] | | | | + + + + + + | Hemoglobin | 9.4 (L)Comment: Testing | 11.3 - 15.5 | EXTERNAL | | | | performed at [facility], [address] | g/dL | LAB | | | | [address], | | | | | | [place] [address] | | | | + + + + + + | Hematocrit, | 28.5 (L)Comment: Testing | 34.0 - 46.0 % | EXTERNAL | | | POC | performed at [facility], [address] | | LAB | | | | [address], | | | | | | [place] [address] | | | | + + + + + + | MCV | 81.1Comment: Testing | 80.0 - 100.0 fl | EXTERNAL | | | | performed at [facility], [address] | | LAB | | | [address], | | | | | | [place] [address] | | | | + + + + + + | MCH | 26.8 (L)Comment: Testing | 27.0 - 34.0 pg | EXTERNAL | | | | performed at [facility], [address] | | LAB | | | | [address], | | | | | | [place] [address] | | | | + + + + + + | MCHC | 33.1Comment: Testing | 32.0 - 35.5 | EXTERNAL | | | | performed at [facility], [address] | g/dL | LAB | | | | [address], | | | | | | [place] [address] | | | | + + + + + + | RDW-CV | 38.1Comment: Testing | 37 - 53 fl | EXTERNAL | | | | performed at [facility], [address] | | LAB | | | [address], | | | | | | [place] [address] | | | | + + + + + + | Platelet | 83 (L)Comment: Testing | 150 - 400 K/uL | EXTERNAL | | | Count | performed at [facility], [address] | | LAB | | | Plasma | [address], | | | | | | [place] [address] | | | | + + + + + + | MPV | 7.9Comment: Testing | fl | EXTERNAL | | | | performed at [facility], [address] | | LAB | | | | [address], | | | | | | [place] [address] | | | | + + + + + + | Differentia | MANUALComment: Testing | | EXTERNAL | | | l Type | performed at [facility], [address] | | LAB | | | | [address], | | | | | | [place] [address] | | | | + + + + + + | Segmented | 22Comment: Testing | % | EXTERNAL | | | Neutrophils | performed at [facility], [address] | | LAB | | | Manual | [address], | | | | | | [place], [place] [address] | | | | + + + + + + | % Bands | 25Comment: Testing | % | EXTERNAL | | | | performed at [facility], [address] | | LAB | | | | [address], | | | | | | [place], [place] [address] | | | | + + + + + + | % | 4Comment: Testing | % | EXTERNAL | | | Metamyelocy | performed at [facility], [address] | | LAB | | | [place] | [address], | | | | | | [place], [place] [address] | | | | + + + + + + | Lymphocytes | 39Comment: Testing | % | EXTERNAL | | | Manual | performed at [facility], [address] | | LAB | | | | [address], | | | | | | [place], [place] [address] | | | | + + + + + + | % Atypical | 2Comment: Testing | % | EXTERNAL | | | Lymphocytes | performed at [facility], [address] | | LAB | | | | [address], | | | | | | [place] [address] | | | | + + + + + + | Monocytes | 6Comment: Testing | % | EXTERNAL | | | Manual | performed at [facility], [address] | | LAB | | | | [address], | | | | | | [place] [address] | | | | + + + + + + | Eosinophils | 2Comment: Testing | % | EXTERNAL | | | Manual | performed at [facility], [address] | | LAB | | | | [address], | | | | | | [place] [address] | | | | + + + + + + | Absolute | 0.25 (LL)Comment: RESULT | 1.90 - 7.40 | EXTERNAL | | | Neutrophils | READ BACK BY:TEZ Siddiqui, | K/uL | LAB | | | | ICU, [id number], 0726, | | | | | | EBTesting performed at | | | | | | [facility], [address] [facility] [address] | | | | | | [place] | | | | | | [address] | | | | + + + + + + | Bands | 0.29 (H)Comment: Testing | 0.00 - 0.20 | EXTERNAL | | | Manual | performed at [facility], [address] | K/uL | LAB | | | | [address], | | | | | | [place] [address] | | | | + + + + + + | Absolute | 0.05 (H)Comment: Testing | K/uL | EXTERNAL | | | Metamyelocy | performed at [facility], [address] | | LAB | | | [place] | [address], | | | | | | [place] [address] | | | | + + + + + + | Absolute | 0.45 (L)Comment: Testing | 1.00 - 3.90 | EXTERNAL | | | Lymphocytes | performed at [facility], [address] | K/uL | LAB | | | | [address], | | | | | | [place] [address] | | | | + + + + + + | Absolute | 0.02 (H)Comment: Testing | K/uL | EXTERNAL | | | Atypical | performed at [facility], [address] | | LAB | | | Lymphocytes | [address], | | | | | | [place] [address] | | | | + + + + + + | Absolute | 0.07Comment: Testing | 0.00 - 0.80 | EXTERNAL | | | Monocytes | performed at [facility], [address] | K/uL | LAB | | | | [address], | | | | | | [place] [address] | | | | + + + + + + | Absolute | 0.02Comment: Testing | 0.00 - 0.50 | EXTERNAL | | | Eosinophils | performed at [facility], [address] | K/uL | LAB | | | | [address], | | | | | | [place] [address] | | | | + + + + + + | Platelet | DECREASEDComment: | | EXTERNAL | | | Estimate | Testing performed at | | LAB | | | | [facility], [address] | | | | | | [place], [place] | | | | | | [address] | | | | + + + + + + | RBC | NORMAL RBC MORPHComment: | | EXTERNAL | | | Morphology | NORMAL PLT MORPHTesting | | LAB | | | | performed at [facility], [address] | | | | | | [address], | | | | | | [place] [address] | | | | + + + + + + + + | Specimen | + + | Blood specimen | | (specimen) | + + + +---------+ + + | Performing | Address | City/State/Zipcode | Phone Number | | Organization | | | | + +---------+ + + | EXTERNAL LAB | | | | + +---------+ + + Lactic Acid (12/31/2014 3:45 AM PDT) + + + + + + | Component | Value | Ref Range | Performed | Pathologist | | | | | At | Signature | + + + + + + | Lactate | 2.0Comment: Testing | 0.4 - 2.0 | EXTERNAL | | | | performed at [facility];[address] | mmol/L | LAB | | | | [address];[place] | | | | | | [address] | | | | + + + + + + + + | Specimen | + + | Blood specimen | | (specimen) | + + + +---------+ + + | Performing | Address | City/State/Zipcode | Phone Number | | Organization | | | | + +---------+ + + | EXTERNAL LAB | | | | + +---------+ + + Ammonia (12/31/2014 3:45 AM PDT) + + + + + + | Component | Value | Ref Range | Performed | Pathologist | | | | | At | Signature | + + + + + + | Ammonia | 16Comment: Testing | umol/L | EXTERNAL | | | | performed at [facility];[address] | | LAB | | | | [address];[place], [place] | | | | | | [address] | | | | + + + + + + + + | Specimen | + + | Blood specimen | | (specimen) | + + + +---------+ + + | Performing | Address | City/State/Zipcode | Phone Number | | Organization | | | | + +---------+ + + | EXTERNAL LAB | | | | + +---------+ + + Hepatic Function Panel (12/31/2014 3:45 AM PDT) + + + + + + | Component | Value | Ref Range | Performed | Pathologist | | | | | At | Signature | + + + + + + | Protein, | 5.0 (L)Comment: Testing | 6.3 - 8.2 g/dL | EXTERNAL | | | Total | performed at [facility], [address] | | LAB | | | | [address], | | | | | | [place] [address] | | | | + + + + + + | Albumin | 3.5Comment: Testing | 3.3 - 4.8 g/dL | EXTERNAL | | | | performed at [facility], [address] | | LAB | | | | [address], | | | | | | [place] [address] | | | | + + + + + + | Bilirubin | 2.4 (H)Comment: Testing | 0.1 - 1.5 mg/dL | EXTERNAL | | | Total | performed at [facility], [address] | | LAB | | | [address], | | | | | | [place] [address] | | | | + + + + + + | Bilirubin | 0.9 (H)Comment: Testing | 0.0 - 0.3 mg/dL | EXTERNAL | | | Direct | performed at [facility], [address] | | LAB | | | | [address], | | | | | | [place] [address] | | | | + + + + + + | ALP, | 31 (L)Comment: Testing | 35 - 115 U/L | EXTERNAL | | | External | performed at [facility], [address] | | LAB | | | | [address], | | | | | | [place] [address] | | | | + + + + + + | AST | 128 (H)Comment: Testing | 10 - 45 U/L | EXTERNAL | | | | performed at [facility], [address] | | LAB | | | | [address], | | | | | | [place] [address] | | | | + + + + + + | ALT | 48Comment: Testing | 10 - 65 U/L | EXTERNAL | | | | performed at [facility], [address] | | LAB | | | [address], | | | | | | [place] [address] | | | | + + + + + + + + | Specimen | + + | | + + + +---------+ + + | Performing | Address | City/State/Zipcode | Phone Number | | Organization | | | | + +---------+ + + | EXTERNAL LAB | | | | + +---------+ + + Basic Metabolic Panel (12/31/2014 3:45 AM PDT) + + + + + + | Component | Value | Ref Range | Performed | Pathologist | | | | | At | Signature | + + + + + + | Na | 122 (L)Comment: Testing | 135 - 143 | EXTERNAL | | | | performed at [facility], [address] | mmol/L | LAB | | | | [address], | | | | | | [place] [address] | | | | + + + + + + | K | 2.4 (LL)Comment: RESULT | 3.5 - 4.9 | EXTERNAL | | | | READ BACK BY:JEANNETTE THOMAS @ | mmol/L | LAB | | | | [id number] KAWTesting | | | | | | performed at [facility], [address] | | | | | | [address], | | | | | | [place] [address] | | | | + + + + + + | Cl | 95 (L)Comment: Testing | 99 - 109 mmol/L | EXTERNAL | | | | performed at [facility], [address] | | LAB | | | | [address], | | | | | | [place] [address] | | | | + + + + + + | CO2 | 17 (L)Comment: Testing | 23 - 32 mmol/L | EXTERNAL | | | | performed at [facility], [address] | | LAB | | | | [address], | | | | | | [place] [address] | | | | + + + + + + | Anion Gap | 12Comment: Testing | 5 - 20 mmol/L | EXTERNAL | | | | performed at [facility], [address] | | LAB | | | | [address], | | | | | | [place] [address] | | | | + + + + + + | Glucose, | 335 (H)Comment: Testing | 65 - 99 mg/dL | EXTERNAL | | | Fasting | performed at [facility], [address] | | LAB | | | | [address], | | | | | | [place] [address] | | | | + + + + + + | BUN | 29 (H)Comment: Testing | 8 - 25 mg/dL | EXTERNAL | | | | performed at [facility], [address] | | LAB | | | | [address], | | | | | | [place] [address] | | | | + + + + + + | Creatinine | 1.97 (H)Comment: Testing | 0.50 - 1.00 | EXTERNAL | | | | performed at [facility], [address] | mg/dL | LAB | | | | [address], | | | | | | [place] [address] | | | | + + + + + + | BUN/Creatin | 15Comment: Testing | | EXTERNAL | | | ine Ratio | performed at [facility], [address] | | LAB | | | | [address], | | | | | | [place] [address] | | | | + + + + + + | Calcium | 6.4 (L)Comment: Testing | 8.5 - 10.5 | EXTERNAL | | | | performed at [facility], [address] | mg/dL | LAB | | | | [address], | | | | | | [place] [address] | | | | + + + + + + | Estimated | 27 (L)Comment: GFR <60: | mL/min/1.73m2 | EXTERNAL | | | GFR | CHRONIC KIDNEY DISEASE, | | LAB | | | | IF FOUND OVER A 3 MONTH | | | | | | PERIOD.GFR <15: KIDNEY | | | | | | FAILURE.FOR | | | | | | AMERICANS, MULTIPLY THE | | | | | | CALCULATED GFR BY | | | | | | 1.210.Testing performed | | | | | | at [facility], [address] | | | | | | [address], | | | | | | [place] [address] | | | | + + + + + + + + | Specimen | + + | Blood specimen | | (specimen) | + + + +---------+ + + | Performing | Address | City/State/Zipcode | Phone Number | | Organization | | | | + +---------+ + + | EXTERNAL LAB | | | | + +---------+ + + POC Glucose (12/31/2014 1:16 AM PDT) + + + + + + | Component | Value | Ref Range | Performed | Pathologist | | | | | At | Signature | + + + + + + | Glucose, | 149 (H)Comment: Testing | 65 - 99 mg/dL | EXTERNAL | | | Fingerstick | performed at [facility];[address] | | LAB | | | | [address];[place], [place] | | | | | | [address] | | | | + + + + + + + + | Specimen | + + | | + + + +---------+ + + | Performing | Address | City/State/Zipcode | Phone Number | | Organization | | | | + +---------+ + + | EXTERNAL LAB | | | | + +---------+ + + Gram Stain, reflex Sputum Culture (12/31/2014 1:00 AM PDT) + + | Specimen | + + | Body fluid sample | | (specimen) | + + + + + | Narrative | Performed At | + + + | Specimen Description TRACHEAL ASPIRATE GRAM | EXTERNAL LAB | | STAIN GREATER THAN 10 WBCS/LPF | | | LESS THAN 10 | | | SEC/LPF 1+ | | | GRAM | | | POSITIVE COCCI CULTURE 2+ | | | NORMAL | | | UPPER RESPIRATORY SCOTTIE | | | Testing performed at [facility], [address] [place], [place] | | | [address] | | + + + + +---------+ + + | Performing | Address | City/State/Zipcode | Phone Number | | Organization | | | | + +---------+ + + | EXTERNAL LAB | | | | + +---------+ + + CK-MB (12/31/2014 12:46 AM PDT) + + + + + -+ | Component | Value | Ref Range | Performed | Pathologist | | | | | At | Signature | + + + + + -+ | CK-MB | 41.4 (H)Comment: Testing | 0.5 - 3.6 ng/mL | EXTERNAL | | | | performed at [facility];[address] | | LAB | | | | [address];[place] | | | | | | [address] | | | | + + + + + -+ | CK-MB Index | 0.6Comment: CK INDEX | | EXTERNAL | | | | INTERPRETATION: | | LAB | | | | MMB ng/mL | | | | | | | | | | | |CK INDEX INTERPRETATION: | | | | | | MMB ng/mL | | | | | | | | | | + + + + + -+ + + | Specimen | + + | | + + + +---------+ + + | Performing | Address | City/State/Zipcode | Phone Number | | Organization | | | | + +---------+ + + | EXTERNAL LAB | | | | + +---------+ + + Troponin I (12/31/2014 12:46 AM PDT) + + + + + + | Component | Value | Ref Range | Performed | Pathologist | | | | | At | Signature | + + + + + + | Troponin I, | 0.178 (H)Comment: 0.00 | 0.00 - 0.10 | EXTERNAL | | | Qual | to 0.10 CONSISTENT | ng/mL | LAB | | | | WITH NORMAL | | | | | | POPULATION0.11 to 0.60 | | | | | | CONSISTENT WITH | | | | | | INCREASED RISK FOR | | | | | | ADVERSE OUTCOMES> 0.60 | | | | | | CONSISTENT | | | | | | WITH WHO CRITERIA FOR | | | | | | ACUTE UT Testing | | | | | | performed at [facility];[address] | | | | | | [address];[place], [place] | | | | | | [address] | | | | + + + + + + + + | Specimen | + + | Blood specimen | | (specimen) | + + + +---------+ + + | Performing | Address | City/State/Zipcode | Phone Number | | Organization | | | | + +---------+ + + | EXTERNAL LAB | | | | + +---------+ + + CK Total (12/31/2014 12:46 AM PDT) + + + + + + | Component | Value | Ref Range | Performed | Pathologist | | | | | At | Signature | + + + + + + | CK, Total | 6732 (H)Comment: Testing | 30 - 240 U/L | EXTERNAL | | | | performed at [facility];[address] | | LAB | | | | [address];[place] | | | | | | [address] | | | | + + + + + + + + | Specimen | + + | Blood specimen | | (specimen) | + + + +---------+ + + | Performing | Address | City/State/Zipcode | Phone Number | | Organization | | | | + +---------+ + + | EXTERNAL LAB | | | | + +---------+ + + MRSA NAAT (12/31/2014 12:23 AM PDT) + + | Specimen | + + | Stool specimen | | (specimen) | + + + + + | Narrative | Performed At | + + + | SOURCE NARES(NOSE) | EXTERNAL LAB | | Testing performed at [facility];[address] [place] [address];[place] [address] MRSA PCR | | | NEGATIVE Testing performed at | | | [facility];[address] [place] [address];[place] [address] | | + + + + +---------+ + + | Performing | Address | City/State/Zipcode | Phone Number | | Organization | | | | + +---------+ + + | EXTERNAL LAB | | | | + +---------+ + + XR Chest 1 Vw (12/31/2014 12:18 AM PDT) + + | Specimen | + + | | + + + + + | Impressions | Performed At | + + + | 1. Life-support devices as reported above with interval intubation | | | and placement of a nasogastric tube 2. Interval progression of the | | | bilateral lower lobe airspace densities and small effusions | | | infiltrate versus edema. | | + + + + + + | Narrative | Performed At | + + + | PASTORA Dayami NEIL XR CHEST 1 VIEW 12/31/2014 12:18 AM HISTORY: 69 | | | years. Female. Critical care unit patient evaluate line and | | | placement, respiratory failure TECHNIQUE: XR CHEST 1 VIEW. AP | | | portable view of the chest 005 hours. Total of 1 images obtained. | | | COMPARISON: 12/30/2014 FINDINGS: Right IJ central venous | | | catheter has been repositioned the tip is now at the atriocaval | | | junction. Endotracheal tube is present the tip is in the mid trachea. | | | Nasogastric tube is now present tip is in the gastric antrum. Cardiac | | | size normal.. Slight interval increase in the bilateral lower lobe | | | airspace densities and small effusions. Upper lung zones are clear. | | + + + + + | Procedure Note | + + | Flavio, Rad Conversion - 04/15/2019 8:35 AM PDT PASTORA A IRWINXR CHEST 1 VIEW12/31/2014 | | 12:18 AM HISTORY:69 years. Female. Critical care unit patient evaluate line and | | placement, respiratory failure TECHNIQUE:XR CHEST 1 VIEW. AP portable view of the chest | | 005 hours. Total of 1 images obtained. COMPARISON:12/30/2014 FINDINGS:Right IJ central | | venous catheter has been repositioned the tip is now at the atriocaval junction. | | Endotracheal tube is present the tip is in the mid trachea. Nasogastric tube is now | | present tip is in the gastric antrum. Cardiac size normal.. Slight interval increase in | | the bilateral lower lobe airspace densities and small effusions. Upper lung zones are | | clear. IMPRESSION: 1. Life-support devices as reported above with interval intubation | | and placement of a nasogastric tube2. Interval progression of the bilateral lower lobe | | airspace densities and small effusions infiltrate versus edema. | | | |FINDINGS: | |Right IJ central venous catheter has been repositioned the tip is now at the atriocaval natalia ction. Endotracheal tube is present the tip is in the mid trachea. Nasogastric tube is now p resent tip is in the gastric antrum. Cardiac size normal.. Slight | |interval increase in the bilateral lower lobe airspace densities and small effusions. Upper lung zones are clear. | | | |IMPRESSION: | |1. Life-support devices as reported above with interval intubation and placement of a naso gastric tube | |2. Interval progression of the bilateral lower lobe airspace densities and small effusions infiltrate versus edema. | | | | | | | | | + + HISTORICAL MICROBIOLOGY RESULT (12/30/2014 11:25 PM PDT) + + | Specimen | + + | Stool specimen | | (specimen) | + + + + + | Narrative | Performed At | + + + | Toxigenic C Difficile NEGATIVE Testing | EXTERNAL LAB | | performed at [facility];[address] [place] [address];[place] [address] 027 NAP1 BI | | | 027 NAP1 BI PRESUMPTIVE NEGATIVE | | | Detection of 027 NAP1 BI strains of C. difficile is presumptive and | | | for epidemiological purposes and not intended to guide or monitor | | | treatment for C. difficile infections. Testing performed at [facility];[address] | | | [facility];[place] [address] | | + + + + +---------+ + + | Performing | Address | City/State/Zipcode | Phone Number | | Organization | | | | + +---------+ + + | EXTERNAL LAB | | | | + +---------+ + + Ova and Parasite Examination (12/30/2014 11:25 PM PDT) + + | Specimen | + + | Stool specimen | | (specimen) | + + + + + | Narrative | Performed At | + + + | Specimen Description STOOL OVA AND | EXTERNAL LAB | | PARASITES SPECIMEN DESCRIPTION: | | | NOT GIVEN | | | MANY WBC'S SEEN | | | NO OVA OR PARASITES SEEN | | | Testing performed at [facility], | | | [address] [place] [address] | | + + + + +---------+ + + | Performing | Address | City/State/Zipcode | Phone Number | | Organization | | | | + +---------+ + + | EXTERNAL LAB | | | | + +---------+ + + Rotavirus antigen, stool (12/30/2014 11:25 PM PDT) + + | Specimen | + + | Stool specimen | | (specimen) | + + + + + | Narrative | Performed At | + + + | ROTAVIRUS NEGATIVE Testing | EXTERNAL LAB | | performed at [facility], [address] [place] [address] | | + + + + +---------+ + + | Performing | Address | City/State/Zipcode | Phone Number | | Organization | | | | + +---------+ + + | EXTERNAL LAB | | | | + +---------+ + + Culture, Yersinia Stool (12/30/2014 11:24 PM PDT) + + | Specimen | + + | Stool specimen | | (specimen) | + + + + + | Narrative | Performed At | + + + | Specimen Description STOOL CULTURE | EXTERNAL LAB | | NEGATIVE FOR SHIGA TOXIN TYPE 1 | | | AND 2. NEGATIVE | | | FOR SALMONELLA, SHIGELLA AND CAMPYLOBACTER | | | NO YERSINIA SPECIES ISOLATED | | | IF A VIBRIO IS SUSPECTED, | | | PLEASE CONTACT THE MICRO LAB FOR SPECIAL TESTING. | | | Testing performed at [facility], [address] | | | [place] [address] | | + + + + +---------+ + + | Performing | Address | City/State/Zipcode | Phone Number | | Organization | | | | + +---------+ + + | EXTERNAL LAB | | | | + +---------+ + + PATHOLOGY CONSULT REQUEST (12/30/2014 11:22 PM PDT) + + + + + + | Component | Value | Ref Range | Performed | Pathologist | | | | | At | Signature | + + + + + + | Pathologist | Comment: Review of CBC | | EXTERNAL | | | Review 1 | collected 12/30/14. I | | LAB | | | | agree with the automated | | | | | | and manual cell counts. | | | | | | The presence of | | | | | | pancytopenia is | | | | | | confirmed. The | | | | | | neutrophils show a left | | | | | | shift with mild toxic | | | | | | changes. Reactive | | | | | | appearing lymphocytes | | | | | | are present. Please | | | | | | correlate clinically. | | | | | | Madhav 01/01/15 | | | | | | BS/trTesting performed | | | | | | at [facility];[address];[place] [address] | | | | + + + + + + + + | Specimen | + + | | + + + +---------+ + + | Performing | Address | City/State/Zipcode | Phone Number | | Organization | | | | + +---------+ + + | EXTERNAL LAB | | | | + +---------+ + + External Lab: CBC (12/30/2014 11:22 PM PDT) + + + + + + | Component | Value | Ref Range | Performed | Pathologist | | | | | At | Signature | + + + + + + | WBC | 1.75 (LL)Comment: CALLED | 3.80 - 11.00 | EXTERNAL | | | | TO BAN K IN ICU AT | K/uL | LAB | | | | 2345 BY CD, READ | | | | | | BACKTesting performed at | | | | | | [facility];[address];[place] [address] | | | | + + + + + + | Non- | 4.09Comment: Testing | 3.70 - 5.10 | EXTERNAL | | | Red Blood | performed at [facility];[address] | M/uL | LAB | | | Cells | [address];[place] | | | | | Counted | [id number] | | | | + + + + + + | Hemoglobin | 11.1 (L)Comment: Testing | 11.3 - 15.5 | EXTERNAL | | | | performed at [facility];[address] | g/dL | LAB | | | | [address];[place] | | | | | | [address] | | | | + + + + + + | Hematocrit, | 33.5 (L)Comment: Testing | 34.0 - 46.0 % | EXTERNAL | | | POC | performed at [facility];[address] | | LAB | | | | [address];[place] | | | | | | [address] | | | | + + + + + + | MCV | 81.8Comment: Testing | 80.0 - 100.0 fl | EXTERNAL | | | | performed at [facility];[address] | | LAB | | | | [address];[place] | | | | | | [address] | | | | + + + + + + | MCH | 27.1Comment: Testing | 27.0 - 34.0 pg | EXTERNAL | | | | performed at [facility];[address] | | LAB | | | | [address];[place] | | | | | | [address] | | | | + + + + + + | MCHC | 33.1Comment: Testing | 32.0 - 35.5 | EXTERNAL | | | | performed at [facility];[address] | g/dL | LAB | | | | [address];[place] | | | | | | [address] | | | | + + + + + + | RDW-CV | 38.5Comment: Testing | 37 - 53 fl | EXTERNAL | | | | performed at [facility];[address] | | LAB | | | | [address];[place] | | | | | | [address] | | | | + + + + + + | Platelet | 101 (L)Comment: Testing | 150 - 400 K/uL | EXTERNAL | | | Count | performed at [facility];[address] | | LAB | | | Plasma | [address];[place] | | | | | | [address] | | | | + + + + + + | MPV | 7.7Comment: Testing | fl | EXTERNAL | | | | performed at [facility];[address] | | LAB | | | | [address];[place] | | | | | | [address] | | | | + + + + + + | Differentia | MANUALComment: Testing | | EXTERNAL | | | l Type | performed at [facility];[address] | | LAB | | | | [address];[place] | | | | | | [address] | | | | + + + + + + | Segmented | 7Comment: Testing | % | EXTERNAL | | | Neutrophils | performed at [facility];[address] | | LAB | | | Manual | [address];[place] | | | | | | [address] | | | | + + + + + + | % Bands | 11Comment: Testing | % | EXTERNAL | | | | performed at [facility];[address] | | LAB | | | | [address];[place] | | | | | | [address] | | | | + + + + + + | % | 2Comment: Testing | % | EXTERNAL | | | Metamyelocy | performed at [facility];[address] | | LAB | | | [place] | [address];[place] | | | | | | [address] | | | | + + + + + + | % | 1Comment: Testing | % | EXTERNAL | | | Myelocytes | performed at [facility];[address] | | LAB | | | | [address];[place] | | | | | | [address] | | | | + + + + + + | Lymphocytes | 72Comment: Testing | % | EXTERNAL | | | Manual | performed at [facility];[address] | | LAB | | | | [address];[place] | | | | | | [address] | | | | + + + + + + | % Atypical | 4Comment: Testing | % | EXTERNAL | | | Lymphocytes | performed at [facility];[address] | | LAB | | | | [address];[place] | | | | | | [address] | | | | + + + + + + | Monocytes | 3Comment: Testing | % | EXTERNAL | | | Manual | performed at [facility];[address] | | LAB | | | | [address];[place] | | | | | | [address] | | | | + + + + + + | Absolute | 0.12 (LL)Comment: CALLED | 1.90 - 7.40 | EXTERNAL | | | Neutrophils | TO BAN [place] IN ICU AT | K/uL | LAB | | | | [address] BY SCAR, READ | | | | | | BACKTesting performed at | | | | | | [facility];[address];[place] [address] | | | | + + + + + + | Bands | 0.19Comment: Testing | 0.00 - 0.20 | EXTERNAL | | | Manual | performed at [facility];[address] | K/uL | LAB | | | | [address];[place] | | | | | | [address] | | | | + + + + + + | Absolute | 0.04 (H)Comment: Testing | K/uL | EXTERNAL | | | Metamyelocy | performed at [facility];[address] | | LAB | | | [place] | [address];[place] | | | | | | [address] | | | | + + + + + + | Absolute | 0.02 (H)Comment: Testing | K/uL | EXTERNAL | | | Myelocytes | performed at [facility];[address] | | LAB | | | | [address];[place] | | | | | | [address] | | | | + + + + + + | Absolute | 1.26Comment: Testing | 1.00 - 3.90 | EXTERNAL | | | Lymphocytes | performed at [facility];[address] | K/uL | LAB | | | | [address];[place] | | | | | | [address] | | | | + + + + + + | Absolute | 0.07 (H)Comment: Testing | K/uL | EXTERNAL | | | Atypical | performed at [facility];[address] | | LAB | | | Lymphocytes | [address];[place] | | | | | | [address] | | | | + + + + + + | Absolute | 0.05Comment: Testing | 0.00 - 0.80 | EXTERNAL | | | Monocytes | performed at [facility];[address] | K/uL | LAB | | | | [address];[place] | | | | | | [address] | | | | + + + + + + | Platelet | DECREASEDComment: | | EXTERNAL | | | Estimate | Testing performed at | | LAB | | | | [facility];[address];[place] [address] | | | | + + + + + + | RBC | RBC AND PLT MORPHOLOGY | | EXTERNAL | | | Morphology | APPEAR NORMALComment: | | LAB | | | | Testing performed at | | | | | | [facility];[address];[place] [address] | | | | + + + + + + + + | Specimen | + + | Blood specimen | | (specimen) | + + + +---------+ + + | Performing | Address | City/State/Zipcode | Phone Number | | Organization | | | | + +---------+ + + | EXTERNAL LAB | | | | + +---------+ + + Culture, Blood, 2nd Specimen (12/30/2014 11:21 PM PDT) + + | Specimen | + + | Blood specimen | | (specimen) | + + + + + | Narrative | Performed At | + + + | Specimen Description BLOOD, LINE DRAW SPECIAL | EXTERNAL LAB | | REQUESTS R IJ CENTRAL | | | Testing performed at [facility];[address] | | | [facility];[place] [address] CULTURE | | | NO GROWTH | | | Testing performed at [facility], [address] [place] [address] | | | [address] | | + + + + +---------+ + + | Performing | Address | City/State/Zipcode | Phone Number | | Organization | | | | + +---------+ + + | EXTERNAL LAB | | | | + +---------+ + + Lactic Acid (12/30/2014 11:20 PM PDT) + + + + + + | Component | Value | Ref Range | Performed | Pathologist | | | | | At | Signature | + + + + + + | Lactate | 1.6Comment: Testing | 0.4 - 2.0 | EXTERNAL | | | | performed at [facility];[address] | mmol/L | LAB | | | | [address];[place], [place] | | | | | | [address] | | | | + + + + + + + + | Specimen | + + | Blood specimen | | (specimen) | + + + +---------+ + + | Performing | Address | City/State/Zipcode | Phone Number | | Organization | | | | + +---------+ + + | EXTERNAL LAB | | | | + +---------+ + + Procalcitonin (12/30/2014 10:20 PM PDT) + + + + + + | Component | Value | Ref Range | Performed | Pathologist | | | | | At | Signature | + + + + + + | Source | PLASMAComment: Testing | | EXTERNAL | | | | performed at [facility] | | LAB | | | | [address];[place] | | | | | | [address] | | | | + + + + + + | PROCALCITON | >200.00 (H)Comment: | ng/mL | EXTERNAL | | | IN | INTERPRETIVE | | LAB | | | | INFORMATION: | | | | | | PROCALCITONIN PCT <= | | | | | | 0.5 ng/mL: Low risk | | | | | | for progression to | | | | | | severe systemic | | | | | | bacterial infection | | | | | | (severe sepsis/septic | | | | | | shock). Does not | | | | | | exclude an infection, | | | | | | because localized | | | | | | infections may be | | | | | | associated with such low | | | | | | levels. If PCT is | | | | | | measured very early | | | | | | after bacterial | | | | | | challenge (usually <6 | | | | | | hours), results may | | | | | | still be low and | | | | | | should re-assess PCT | | | | | | 6-24 hours later. PCT | | | | | | >0.5 and <= 2 ng/mL: | | | | | | Moderate risk for | | | | | | progression to severe | | | | | | systemic infection | | | | | | (severe sepsis/septic | | | | | | shock). Other | | | | | | conditions are known | | | | | | to elevate PCT, patient | | | | | | should be closely | | | | | | monitored both | | | | | | clinically and by | | | | | | re-assessing PCT | | | | | | within 6-24 hours. PCT > | | | | | | 2 ng/mL: High | | | | | | likelihood for | | | | | | progression to severe | | | | | | systemic bacterial | | | | | | infection (severe | | | | | | sepsis/septic shock). | | | | | | PCT >= 10 ng/mL: | | | | | | High likelihood of | | | | | | severe sepsis or septic | | | | | | shock.Testing performed | | | | | | at [facility];[address];[place] [address] | | | | + + + + + + + + | Specimen | + + | | + + + +---------+ + + | Performing | Address | City/State/Zipcode | Phone Number | | Organization | | | | + +---------+ + + | EXTERNAL LAB | | | | + +---------+ + + PTT (12/30/2014 10:20 PM PDT) + + + + + + | Component | Value | Ref Range | Performed | Pathologist | | | | | At | Signature | + + + + + + | aPTT, | 37 (H)Comment: Testing | 23 - 32 seconds | EXTERNAL | | | Patient | performed at [facility];[address] | | LAB | | | [address];[place], [place] | | | | | | [address] | | | | + + + + + + + + | Specimen | + + | Blood specimen | | (specimen) | + + + +---------+ + + | Performing | Address | City/State/Zipcode | Phone Number | | Organization | | | | + +---------+ + + | EXTERNAL LAB | | | | + +---------+ + + Protime INR (12/30/2014 10:20 PM PDT) + + + + + + | Component | Value | Ref Range | Performed | Pathologist | | | | | At | Signature | + + + + + + | INR | 1.3Comment: REFERENCE | | EXTERNAL | | | | RANGE:0.9 - 1.2 | | LAB | | | | NON-ANTICOAGULATED2.0 | | | | | | - 3.0 ALL OTHER | | | | | | THERAPEUTIC | | | | | | INDICATIONS2.5 - 3.5 | | | | | | MECHANICAL HEART VALVES, | | | | | | RECURRENT OR SYSTEMIC | | | | | | EMBOLISMTesting | | | | | | performed at [facility];[address] | | | | | | [address] [facility];[place], [place] | | | | | | [address] | | | | + + + + + + + + | Specimen | + + | Blood specimen | | (specimen) | + + + +---------+ + + | Performing | Address | City/State/Zipcode | Phone Number | | Organization | | | | + +---------+ + + | EXTERNAL LAB | | | | + +---------+ + + Hepatic Function Panel (12/30/2014 10:20 PM PDT) + + + + + + | Component | Value | Ref Range | Performed | Pathologist | | | | | At | Signature | + + + + + + | Protein, | 5.0 (L)Comment: Testing | 6.3 - 8.2 g/dL | EXTERNAL | | | Total | performed at [facility];[address] | | LAB | | | | [address];[place], [place] | | | | | | [address] | | | | + + + + + + | Albumin | 2.4 (L)Comment: Testing | 3.3 - 4.8 g/dL | EXTERNAL | | | | performed at [facility];[address] | | LAB | | | | [address];[place] | | | | | | [address] | | | | + + + + + + | Bilirubin | 1.7 (H)Comment: Testing | 0.1 - 1.5 mg/dL | EXTERNAL | | | Total | performed at [facility];[address] | | LAB | | | | [address];[place] | | | | | | [address] | | | | + + + + + + | Bilirubin | 0.3Comment: Testing | 0.0 - 0.3 mg/dL | EXTERNAL | | | Direct | performed at [facility] [place] | | LAB | | | | [address];[place] | | | | | | [id number] | | | | + + + + + + | ALP, | 50Comment: Testing | 35 - 115 U/L | EXTERNAL | | | External | performed at [facility] [place];[address] | | LAB | | | | [address];[place] | | | | | | [id number] | | | | + + + + + + | AST | 155 (H)Comment: Testing | 10 - 45 U/L | EXTERNAL | | | | performed at [facility] [place];[address] | | LAB | | | | [address];[place] | | | | | | [id number] | | | | + + + + + + | ALT | 62Comment: Testing | 10 - 65 U/L | EXTERNAL | | | | performed at [facility] [place];[address] | | LAB | | | | [address];[place] | | | | | | [id number] | | | | + + + + + + + + | Specimen | + + | | + + + +---------+ + + | Performing | Address | City/State/Zipcode | Phone Number | | Organization | | | | + +---------+ + + | EXTERNAL LAB | | | | + +---------+ + + Basic Metabolic Panel (12/30/2014 10:20 PM PDT) + + + + + + | Component | Value | Ref Range | Performed | Pathologist | | | | | At | Signature | + + + + + + | Na | 137Comment: Testing | 135 - 143 | EXTERNAL | | | | performed at [facility];888 | mmol/L | LAB | | | | [address];[place] | | | | | | [address] | | | | + + + + + + | K | 4.0Comment: Testing | 3.5 - 4.9 | EXTERNAL | | | | performed at [facility];888 | mmol/L | LAB | | | | [address];[place] | | | | | | [address] | | | | + + + + + + | Cl | 107Comment: Testing | 99 - 109 mmol/L | EXTERNAL | | | | performed at [facility];[address] | | LAB | | | | [address];[place] | | | | | | [address] | | | | + + + + + + | CO2 | 16 (L)Comment: Testing | 23 - 32 mmol/L | EXTERNAL | | | | performed at [facility];[address] | | LAB | | | | [address];[place] | | | | | | [address] | | | | + + + + + + | Anion Gap | 18Comment: Testing | 5 - 20 mmol/L | EXTERNAL | | | | performed at [facility];[address] | | LAB | | | | [address];[place] | | | | | | [address] | | | | + + + + + + | Glucose, | 74Comment: Testing | 65 - 99 mg/dL | EXTERNAL | | | Fasting | performed at [facility];[address] | | LAB | | | | [address];[place] | | | | | | [address] | | | | + + + + + + | BUN | 34 (H)Comment: Testing | 8 - 25 mg/dL | EXTERNAL | | | | performed at [facility];[address] | | LAB | | | | [address];[place] | | | | | | [address] | | | | + + + + + + | Creatinine | 2.48 (H)Comment: Testing | 0.50 - 1.00 | EXTERNAL | | | | performed at [facility];888 | mg/dL | LAB | | | | [address];[place] | | | | | | [address] | | | | + + + + + + | BUN/Creatin | 14Comment: Testing | | EXTERNAL | | | ine Ratio | performed at [facility];[address] | | LAB | | | | [address];[place] | | | | | | [address] | | | | + + + + + + | Calcium | 6.5 (L)Comment: Testing | 8.5 - 10.5 | EXTERNAL | | | | performed at [facility];888 | mg/dL | LAB | | | | [address];[place] | | | | | | [address] | | | | + + + + + + | Estimated | 21 (L)Comment: GFR <60: | mL/min/1.73m2 | EXTERNAL | | | GFR | CHRONIC KIDNEY DISEASE, | | LAB | | | | IF FOUND OVER A 3 MONTH | | | | | | PERIOD.GFR <15: KIDNEY | | | | | | FAILURE.FOR | | | | | | AMERICANS, MULTIPLY THE | | | | | | CALCULATED GFR BY | | | | | | 1.210.Testing performed | | | | | | at [facility];[address] [place] [address] | | | | | | [address];[place] [address] | | | | + + + + + + + + | Specimen | + + | | + + + +---------+ + + | Performing | Address | City/State/Zipcode | Phone Number | | Organization | | | | + +---------+ + + | EXTERNAL LAB | | | | + +---------+ + + Culture, Blood (12/30/2014 10:20 PM PDT) + + | Specimen | + + | Blood specimen | | (specimen) | + + + + + | Narrative | Performed At | + + + | Specimen Description BLOOD CULTURE | EXTERNAL LAB | | NO GROWTH | | | Testing performed at [facility], [address] | | | [place] [address] | | + + + + +---------+ + + | Performing | Address | City/State/Zipcode | Phone Number | | Organization | | | | + +---------+ + + | EXTERNAL LAB | | | | + +---------+ + + Urinalysis, Reflex Microscopic and/or Culture (12/30/2014 10:10 PM PDT) + + + + + + | Component | Value | Ref Range | Performed | Pathologist | | | | | At | Signature | + + + + + + | Color | YELLOWComment: Testing | | EXTERNAL | | | | performed at [facility], [address] | | LAB | | | | [address], | | | | | | [place] [address] | | | | + + + + + + | Clarity, | TURBIDComment: Testing | | EXTERNAL | | | Urine | performed at [facility], [address] | | LAB | | | | [address], | | | | | | [place] [address] | | | | + + + + + + | Specific | 1.022Comment: Testing | 1.002 - 1.030 | EXTERNAL | | | [place], | performed at [facility], [address] | | LAB | | | Urine | [address], | | | | | | [place] [address] | | | | + + + + + + | Leukocyte | NEGATIVEComment: Testing | | EXTERNAL | | | Esterase, | performed at [facility], [address] | | LAB | | | [address] | [address], | | | | | | [place] [address] | | | | + + + + + + | Nitrite, | NEGATIVEComment: Testing | | EXTERNAL | | | Urine | performed at [facility], [address] | | LAB | | | | [address], | | | | | | [place] [address] | | | | + + + + + + | Urobilinoge | 0.2Comment: Testing | mg/dL | EXTERNAL | | | n, Urine | performed at [facility], [address] | | LAB | | | | [address], | | | | | | [place] [address] | | | | + + + + + + | Protein, | 100 (A)Comment: Testing | mg/dL | EXTERNAL | | | Urine | performed at [facility], [address] | | LAB | | | | [address], | | | | | | [place] [address] | | | | + + + + + + | pH, Urine | 5.5Comment: Testing | 5.0 - 8.0 | EXTERNAL | | | | performed at [facility], [address] | | LAB | | | | [address], | | | | | | [place] [address] | | | | + + + + + + | Blood, | LARGE (A)Comment: | | EXTERNAL | | | Urine | Testing performed at | | LAB | | | | [facility], [address] | | | | | | [place] | | | | | | [address] | | | | + + + + + + | Ketones | TRACE (A)Comment: | mg/dL | EXTERNAL | | | | Testing performed at | | LAB | | | | [facility], [address] | | | | | | [place] | | | | | | [address] | | | | + + + + + + | Bilirubin, | NEGATIVEComment: Testing | | EXTERNAL | | | Urine | performed at [facility], [address] | | LAB | | | | [address], | | | | | | [place] [address] | | | | + + + + + + | Glucose, | NEGATIVEComment: Testing | mg/dL | EXTERNAL | | | Urine | performed at [facility], [address] | | LAB | | | | [address], | | | | | | [place] [address] | | | | + + + + + + + + | Specimen | + + | | + + + +---------+ + + | Performing | Address | City/State/Zipcode | Phone Number | | Organization | | | | + +---------+ + + | EXTERNAL LAB | | | | + +---------+ + + Urinalysis, Microscopic Only (12/30/2014 10:10 PM PDT) + + + + + + | Component | Value | Ref Range | Performed | Pathologist | | | | | At | Signature | + + + + + + | WBC, UA | 1-5Comment: Testing | 0 - 5 /hpf | EXTERNAL | | | | performed at [facility], [address] | | LAB | | | | [address], | | | | | | [place] [address] | | | | + + + + + + | RBC, UA | 1-5Comment: Testing | 0 - 5 /hpf | EXTERNAL | | | | performed at [facility], [address] | | LAB | | | | [address], | | | | | | [place] [address] | | | | + + + + + + | Bacteria, | NONE SEENComment: | | EXTERNAL | | | UA | Testing performed at | | LAB | | | | [facility], [address] | | | | | | [place] | | | | | | [address] | | | | + + + + + + | Epithelial | 26-50Comment: Testing | /lpf | EXTERNAL | | | Cells | performed at [facility], [address] | | LAB | | | | [address], | | | | | | [place] [address] | | | | + + + + + + | HYALINE | 6-10Comment: Testing | | EXTERNAL | | | CASTS UA | performed at [facility], [address] | | LAB | | | | [address], | | | | | | [place] [address] | | | | + + + + + + + + | Specimen | + + | | + + + +---------+ + + | Performing | Address | City/State/Zipcode | Phone Number | | Organization | | | | + +---------+ + + | EXTERNAL LAB | | | | + +---------+ + + HISTORICAL MICROBIOLOGY RESULT (12/30/2014 10:10 PM PDT) + + | Specimen | + + | Cerebrospinal fluid | | sample (specimen) | + + + + + | Narrative | Performed At | + + + | MICRO SPECIMEN SOURCE CEREBROSPINAL FLUID | EXTERNAL LAB | | Testing performed at [facility];[address] [place] [address];[place] [address] SOURCE | | | SEE BELOW CEREBROSPINAL FLUID | | | Testing performed by [place] [address] HSV DNA Type 1 | | | NOT DETECTED Testing performed at [facility], [address] | | | [place] [address] HSV DNA Type 2 | | | NOT DETECTED Testing performed at [facility], [address] [facility], | | | [place] [address] COMMENT | | | SEE BELOW A DIAGNOSIS OF HSV INFECTION SHOULD NOT RELY ONLY ON THE | | | RESULT OF A PCR ASSAY BUT SHOULD BE CONSIDERED IN CONJUNCTION WITH | | | CLINICAL PRESENTATION AND OTHER ESTABLISHED DIAGNOSTIC TESTS. A | | | NEGATIVE PCR RESULT INDICATES ONLY THE ABSENCE OF HSV DNA OR HSV DNA | | | IN CONCENTRATIONS BELOW THE LEVEL OF DETECTION OF THE ASSAY AND DOES | | | NOT EXCLUDE THE DIAGNOSIS OF DISEASE. Testing performed at [facility], [address] | | [address] [place] [address] COMMENT | | | SEE BELOW THIS TEST WAS DEVELOPED AND ITS | | | PERFORMANCE CHARACTERISTICS DETERMINED BY [facility]. THE [place] FOOD AND | | | DRUG ADMINISTRATION (FDA) HAS NOT APPROVED OR CLEARED THIS TEST. | | | HOWEVER, FDA APPROVAL OR CLEARANCE IS CURRENTLY NOT REQUIRED FOR | | | CLINICAL USE OF THIS TEST. THE RESULTS ARE NOT INTENDED TO BE USED | | | THE SOLE MEANS FOR CLINICAL DIAGNOSIS OR PATIENT MANAGEMENT | | | DECISIONS. [facility] IS AUTHORIZED UNDER CLINICAL LABORATORY IMPROVEMENT | | | AMENDMENTS (CLIA) TO PERFORM HIGH-COMPLEXITY TESTING. Testing | | | performed at [facility], [address] [place] [address] | | + + + + +---------+ + + | Performing | Address | City/State/Zipcode | Phone Number | | Organization | | | | + +---------+ + + | EXTERNAL LAB | | | | + +---------+ + + Culture, CSF, Smear (12/30/2014 10:10 PM PDT) + + | Specimen | + + | Cerebrospinal fluid | | sample (specimen) | + + + + + | Narrative | Performed At | + + + | Specimen Description CEREBROSPINAL FLUID GRAM | EXTERNAL LAB | | STAIN WBC'S SEEN | | | NO ORGANISMS SEEN | | | Testing performed at [facility];[address] | | | [facility];[place] [address] CULTURE | | | NO GROWTH | | | Testing performed at [facility], [address] [place], [place] | | | [address] | | + + + + +---------+ + + | Performing | Address | City/State/Zipcode | Phone Number | | Organization | | | | + +---------+ + + | EXTERNAL LAB | | | | + +---------+ + + Cell Count with Differential, CSF (12/30/2014 10:10 PM PDT) + + | Specimen | + + | Cerebrospinal fluid | | sample (specimen) | + + + + + | Narrative | Performed At | + + + | COLOR COLORLESS | EXTERNAL LAB | | Testing performed at [facility];[address] [place] [address];[place] [address] APPEARANCE | | | CLEAR Testing performed at | | | [facility];[address] [place] [address];[place] [address] Tube Number, CSF | | | 3 Testing performed at [facility];[address] [place] [address] | | | Bl;[place] [address] CSF RBC | | | 1 High Testing performed at [facility];[address];[place] [address] CSF WBC | | | 5 Testing performed at [facility];[address];[place], [place] | | | [address] | | + + + + +---------+ + + | Performing | Address | City/State/Zipcode | Phone Number | | Organization | | | | + +---------+ + + | EXTERNAL LAB | | | | + +---------+ + + Protein, CSF (12/30/2014 10:10 PM PDT) + + | Specimen | + + | Cerebrospinal fluid | | sample (specimen) | + + + + + | Narrative | Performed At | + + + | CSF TOTAL PROTEIN 38 Testing | EXTERNAL LAB | | performed at [facility];[address] [place] [address];[place] [address] | | + + + + +---------+ + + | Performing | Address | City/State/Zipcode | Phone Number | | Organization | | | | + +---------+ + + | EXTERNAL LAB | | | | + +---------+ + + Glucose, CSF (12/30/2014 10:10 PM PDT) + + | Specimen | + + | Cerebrospinal fluid | | sample (specimen) | + + + + + | Narrative | Performed At | + + + | CSF GLUCOSE 86 | EXTERNAL LAB | | Testing performed at [facility];[address] [place] [address];[place] [address] | | + + + + +---------+ + + | Performing | Address | City/State/Zipcode | Phone Number | | Organization | | | | + +---------+ + + | EXTERNAL LAB | | | | + +---------+ + + XR Chest 1 Vw (12/30/2014 9:19 PM PDT) + + | Specimen | + + | | + + + + + | Impressions | Performed At | + + + | FINDINGS/ IMPRESSION: Right internal jugular central venous | | | catheter with tip in the proximal right atrium. No pneumothorax. | | | Bilateral diffuse airspace disease, consistent with pulmonary edema or | | | diffuse infection. Left pleural effusion. Upper mediastinal | | | contours are normal. Heart size is normal. Bibasilar atelectasis. | | | | | + + + + + + | Narrative | Performed At | + + + | PASTORA TREJO 1945 69 years XR CHEST 1 VIEW 12/30/2014 9:19 | | | PM INDICATION: Catheter placement. COMPARISON: None | | | TECHNIQUE: Chest 1 view, AP view of the chest | | + + + + + | Procedure Note | + + | Flavio, Rad Conversion - 04/15/2019 8:35 AM PDT PASTORA Stock [id number] yearsXR CHEST | | 1 VIEW12/30/2014 9:19 PM INDICATION: Catheter placement. COMPARISON: None TECHNIQUE: Chest | | 1 view, AP view of the chest IMPRESSION: FINDINGS/ IMPRESSION: Right internal jugular | | central venous catheter with tip in the proximal right atrium. No pneumothorax. | | Bilateral diffuse airspace disease, consistent with pulmonary edema or diffuse | | infection. Left pleural effusion. Upper mediastinal contours are normal. Heart size is | | normal. Bibasilar atelectasis. | | PM | |COMPARISON: None | | | |TECHNIQUE: Chest 1 view, AP view of the chest | | | |IMPRESSION: | |FINDINGS/ IMPRESSION: | | | |Right internal jugular central venous catheter with tip in the proximal right atrium. No pn eumothorax. | | | |Bilateral diffuse airspace disease, consistent with pulmonary edema or diffuse infection. | | | |Left pleural effusion. | | | |Upper mediastinal contours are normal. Heart size is normal. | | | |Bibasilar atelectasis. | | | | | | | + + ECG 12 lead (12/30/2014 1:57 AM PDT) + + + + + + | Component | Value | Ref Range | Performed | Pathologist | | | | | At | Signature | + + + + + + | DIAGNOSIS: | Sinus | | EXTERNAL | | | | tachycardiaProlonged | | LAB | | | | QTAbnormal ECGNo | | | | | | previous ECGs | | | | | | availableConfirmed by | | | | | | PEG MAX ([id number]) on | | | | | | 12/31/2014 7:02:59 PM | | | | + + + + + + + + | Specimen | + + | | + + + + + | Narrative | Performed At | + + + | Historically converted procedure from [facility] [employer] environment | EXTERNAL LAB | + + + + +---------+ + + | Performing | Address | City/State/Zipcode | Phone Number | | Organization | | | | + +---------+ + + | EXTERNAL LAB | | | | + +---------+ + + documented in this encounter Visit Diagnoses + + | Diagnosis | + + | STEMI (ST elevation myocardial infarction) (HCC) Acute myocardial infarction, | | unspecified site, episode of care unspecified | + + documented in this encounter
--- OUTSIDE RECORDS SUMMARY | ~2020-05-21 | XMS | Encounter Summary ---
Demographics + + + | Address | [address] | | | [place] [address] | + + + | Home Phone | | + + + | Preferred Language | Unknown | + + + | Marital Status | Single | + + + | Bahai Affiliation | CAT | + + + | Race | White | + + + | Ethnic Group | Not or | + + + Author + + + | Author | [facility] | + + + | Organization | [facility] | + + + | Address | Unknown | + + + | Phone | Unavailable | + + + Support + + +---------+ + | Name | Relationship | Address | Phone | + + +---------+ + | Douglas Springer | ECON | Unknown | | + + +---------+ + Care Team Providers + +------+ + | Care Rotary Drier Name | Role | Phone | + +------+ + | Juan Dong MD | PCP | | + +------+ + Encounter Details +--------+ + + + + | Date | Type | Department | Care Team | Description | +--------+ + + + + | 12/30/ | Document-Sc | Health Information | Unknown . | | | 2014 | anned | Services [id number] | | | | | [address] | | | | | | Mailcode: OP17A | | | | | | [facility] | | | | | | [place], [place] | | | | | | [address] | | | | | | [phone] | | | +--------+ + + + [...] | + +--------+ + + + | RADIOLOGY | | 12/30/2014 | | Results for this | | | | 12:00 AM | | procedure are in the | | | | PDT | | results section. | + +--------+ + + + documented in this encounter Results RADIOLOGY (12/30/2014 12:00 AM PDT) + + + | Narrative | Performed At | + + + | | | + + + documented in this encounter Visit Diagnoses Not on filedocumented in this encounter"
--- OUTSIDE RECORDS SUMMARY | ~2020-05-21 | XMS | Encounter Summary ---
Demographics + + + | Address | [address] | | | [place] [address] | + + + | Home Phone | | + + + | Preferred Language | Unknown | + + + | Marital Status | Single | + + + | Gnosticism Affiliation | CAT | + + + | Race | White | + + + | Ethnic Group | Not or | + + + Author + + + | Author | [facility] | + + + | Organization | [facility] | + + + | Address | Unknown | + + + | Phone | Unavailable | + + + Support + + +---------+ + | Name | Relationship | Address | Phone | + + +---------+ + | Douglas Springer | ECON | Unknown | | + + +---------+ + Care Team Providers + +------+ + | Care Family Dentist Name | Role | Phone | + +------+ + | Juan Dong MD | PCP | | + +------+ + Reason for Visit + +--------+ + | Reason | Onset | Comments | | | Date | | + +--------+ + | Lab Results | 07/16/ | | | | 2016 | | + +--------+ + Encounter Details +--------+ + + + + | Date | Type | Department | Care Team | Description | +--------+ + + + + | 07/16/ | Telephone | Otolaryngology | Rosalind Wu, | Lab Results | | 2017 | | Thyroid Services at | MD [address] | | | | | [address] | [facility] | | | | [address] | [place], [place] | | | | | Physician's | [address] | | | | | Pavilion, 2nd floor | [phone] | | | | | [place], [place] | | | | | | [address] | | | | | | [phone] | | | +--------+ + + + + Social History + +-------+ +--------+------+ | Tobacco Use | Types | Packs/Day | Years | Date | | | | | Used | | + +-------+ +--------+------+ | Never Smoker | | | | | + +-------+ +--------+------+ + +---+---+---+ | Smokeless Tobacco: | | | | | Never Used | | | | + +---+---+---+ + + +---------+ + | Alcohol Use | Drinks/Week | oz/Week | Comments | + + +---------+ + | Yes | | | social | + + +---------+ + + + + | Sex Assigned at [...] + +--------+ + + + | CALCIUM, IONIZED, | Routin | 07/13/2017 | | Results for this | | WHOLE BLOOD | e | | | procedure are in the | | | | | | results section. | + +--------+ + + + | CALCIUM, IONIZED, | Routin | 07/13/2017 | | Results for this | | WHOLE BLOOD | e | | | procedure are in the | | | | | | results section. | + +--------+ + + + documented in this encounter Results CALCIUM, IONIZED, WHOLE BLOOD (07/13/2017) + + + + + + | Component | Value | Ref Range | Performed | Pathologist | | | | | At | Signature | + + + + + + | ICA, | 1.29 (A) | 7.40 - 11.11 | [facility] | | | CORRECTED | | mmol/L | LAB | | | TO PH 7.4 | | | | | | | | | [place] | | + + + + + + + + | Specimen | + + | Blood - Blood | | (substance) | + + + +---------+ + + | Performing | Address | City/State/Zipcode | Phone Number | | Organization | | | | + +---------+ + + | [facility] | | | [phone] | | | | | | | [place] | | | | + +---------+ + + CALCIUM, IONIZED, WHOLE BLOOD (07/13/2017) + + + + + + | Component | Value | Ref Range | Performed | Pathologist | | | | | At | Signature | + + + + + + | CALC ICA, | 1.33 (A) | 1.11 - 1.30 | [facility] | | | WHOLE BLD | | mmol/L | LAB | | | | | | | | | | | | [place] | | + + + + + + + + | Specimen | + + | Blood - Blood | | (substance) | + + + +---------+ + + | Performing | Address | City/State/Zipcode | Phone Number | | Organization | | | | + +---------+ + + | [facility] | | | [phone] | | | | | | | [place] | | | | + +---------+ + + documented in this encounter Visit Diagnoses Not on filedocumented in this encounter"
--- OUTSIDE RECORDS SUMMARY | ~2020-05-21 | XMS | Encounter Summary ---
Demographics + + + | Address | [address] | | | [place] [address] | + + + | Home Phone | | + + + | Preferred Language | Unknown | + + + | Marital Status | Single | + + + | Advent Affiliation | 1041 | + + + | Race | White | + + + | Ethnic Group | Not or | + + + Author + + + | Author | [facility] | | | and [place] | + + + | Organization | [facility] | | | [...] Team Providers + +------+ + | Care Plant Operations Coordinator Name | Role | Phone | + +------+ + PCP | Unavailable | + +------+ + Encounter Details +--------+ + + + + | Date | Type | Department | Care Team | Description | +--------+ + + + + | 01/17/ | Hospital | [facility] | Sejal Beck | | | 2011 | Encounter | [facility] EM[facility]Y | MD [address] | | | | | CENTER [address] | [facility], | | | | | [place], [place] | [place] [address] | | | | | [address] | [phone] | | | | | [phone] | | | +--------+ + + + [...] encounter Medications at Time of Discharge + +------+ +---------+ + + | Medication | Sig | Dispensed | Refills | Start | End Date | | | | | | Date | | + +------+ +---------+ + + | Pseudoephedrine | TABS | | 0 | 11/11/19 | | | HCl (SUDAFED PO) | | | | 12 | 9 | + +------+ +---------+ + + documented as of this encounter ED Notes Sejal Beck MD - 01/18/2012 4:14 PM PDTDATE: 01/18/2012 PRIMARY CARE PHYSICIAN: Eve [place]. CHIEF COMPLAINT: Vomiting, diarrhea, and dehydration. HISTORY OF PRESENT ILLNESS: This is a 66-year-old female who [facility] accompanied by her mom. The patient had the onset of inten se vomiting and diarr hea yesterday. She has had some slightly blood-tinged diarrhea, assoc iated with rectal discomfort. Te mperature measured at 99.0. She has had a previous appende ctomy, cholecystectomy. She had a previous hospitalization in this facility for hyponatremi a associated with these symptoms, and she has felt de hydrated, so she came in for evaluati on. PAST MEDICAL HISTORY: Previous appendectomy, cholecystectomy, tonsillectomy, secti on. MEDICATIONS 1. Tylenol. 2. Vitamin D. 3. Docusate. 4. Ibuprofen. 5. Multivitamin. 6. Nortriptyline. 7. Omeprazole. ALLERGIES 1. CODEINE. 2. TRAMADOL. 3. "SSRIS." REVIEW OF SYSTEMS: As noted above. No known sickening foods or ill contacts. PHYSICAL EXAMINATION VITAL SIGNS: Temp 97.0, respirations 22, heart rate 98, blood pressure 121/82, O2 saturatio n 100% jens m air, 55 kilos stated. GENERAL: A thin female. SKIN: Warm, dry, a little bit pale, no jaundice. HEENT: Head normocephalic, atraumatic. Pupils equal, round, react to light. No scleral icte jossy. HEART: Regular rate and rhythm. No murmur. No tachycardia. LUNGS: Clear, normal effort. ABDOMEN: Active bowel sounds, soft, scaphoid, nontender. NEUROLOGIC: The patient is awake, alert, and oriented. EMERGENCY DEPARTMENT COURSE: The patient had an IV established, she was given Phenergan for nausea, w hich is her most effective regimen, a liter of normal saline, and lab work was c hecked. CBC, comprehe nsive panel, amylase and lipase, along with urinalysis. Her serum telma ctrolytes show only a mildly dec reased serum sodium today at 132, normal serum bicarbonate at 26, and potassium 4.5. Normal amylase a nd lipase, mildly elevated BUN at 23, creatinin e is normal at 0.93, consistent with volume contractio n. LFTs normal except for a total bi lirubin reported out at 3.5. This may be spurious. She does not a ppear frankly jaundiced. Her white count minimally elevated at 11.5, hemoglobin normal, platelet coun t normal. With the above measures she was able to tolerate some sips of liquids. She received Phenerg an liquid and suppositories for symptom control and at this point she is ready for discharg e. She will follow u p with her primary care if she does not seem to be improving in a coup le of days. IMPRESSION ACUTE GASTROENTERITIS. DICTATED BY: Sejal Beck MD Emergency Medicine JOB #: [id number] EXT JOB #:[id number] <Electronicall y Signed by Sejal Beck MD> 02/02/12 1324 documented in this encounter Plan of Treatment Not on filedocumented as of this encounter Procedures + +--------+ + + + | Procedure Name | Priori | Date/Time | Associated Diagnosis | Comments | | | ty | | | | + +--------+ + + + | CBC WITH | Routin | 01/18/2012 | | Results for this | | DIFFERENTIAL | e | 5:25 PM | | procedure are in the | | | | PDT | | results section. | + +--------+ + + + | LIPASE | Routin | 01/18/2012 | | Results for this | | | e | 5:25 PM | | procedure are in the | | | | PDT | | results section. | + +--------+ + + + | AMYLASE | Routin | 01/18/2012 | | Results for this | | | e | 5:25 PM | | procedure are in the | | | | PDT | | results section. | + +--------+ + + + | COMPREHENSIVE | Routin | 01/18/2012 | | Results for this | | METABOLIC PANEL | e | 5:25 PM | | procedure are in the | | | | PDT | | results section. | + +--------+ + + + documented in this encounter Results Comprehensive Metabolic Panel (01/18/2012 5:25 PM PDT) + + + + + + | Component | Value | Ref Range | Performed | Pathologist | | | | | At | Signature | + + + + + + | Glucose | 143 (H) | 70 - 109 mg/dL | [facility] | | | | | [facility] | | | | | | [facility] | | | | | | [facility] - | | | | | | LABORATORY | | + + + + + + | Calcium | 8.2 (L) | 8.3 - 10.5 | [facility] | | | | | mg/dL | [facility] | | | | | | [facility] | | | | | | [facility] - | | | | | | LABORATORY | | + + + + + + | Alkaline | 92 | 40 - 110 IU/L | [facility] | | | Phosphatase | | | [facility] | | | | | | [facility] | | | | | | C[facility] - | | | | | | LABORATORY | | + + + + + + | AST | 38 | 10 - 42 IU/L | [facility] | | | | | | [facility] | | | | | | [facility] | | | | | | [facility] - | | | | | | LABORATORY | | + + + + + + | ALT | 35 | 6 - 45 IU/L | [facility] | | | | | | [facility] | | | | | | [facility] | | | | | | [facility] - | | | | | | LABORATORY | | + + + + + + | Bilirubin | 3.5 (H) | 0.2 - 1.0 mg/dL | [facility] | | | Total | | | [facility] | | | | | | [facility] | | | | | | [facility] - | | | | | | LABORATORY | | + + + + + + | Total | 6.6 | 6.0 - 7.8 gm/dL | [facility] | | | Protein | | | [facility] | | | | | | [facility] | | | | | | [facility] - | | | | | | LABORATORY | | + + + + + + | Albumin | 3.8 | 3.2 - 5.0 gm/dL | [facility] | | | | | | [facility] | | | | | | [facility] | | | | | | [facility] - | | | | | | LABORATORY | | + + + + + + | BUN | 23 (H) | 7 - 18 mg/dL | [facility] | | | | | | [facility] | | | | | | [facility] | | | | | | C[facility] - | | | | | | LABORATORY | | + + + + + + | Creatinine | 0.93 | 0.60 - 1.30 | [facility] | | | | | mg/dL | [facility] | | | | | | [facility] | | | | | | CENTER - | | | | | | LABORATORY | | + + + + + + | Estimated | >60Comment: For | >60 mL/min/A | [facility] | | | GFR | -Americans, | | [facility] | | | | please multiply the | | MEDICAL | | | | result by 1.210 | | CENTER - | | | | This is an estimated | | LABORATORY | | | | GFR and is based on a | | | | | | standard adult | | | | | | body mass (A=1.73m2) and | | | | | | serum creatinine | | | | + + + + + + | BUN/Creatin | 24.7 (H) | 12 - 20 | [facility] | | | ine Ratio | | | [facility] | [facility] | | [facility] | | | | | | [facility] - | | | | | | LABORATORY | | + + + + + + | Na | 132 (L) | 136 - 149 mEq/L | [facility] | | | | | | [facility] | | | | | | [facility] | | | | | | CENTER - | | | | | | LABORATORY | | + + + + + + | K | 4.5 | 3.5 - 5.1 mEq/l | [facility] | | | | | | [facility] | | | | | | [facility] | | | | | | CENTER - | | | | | | LABORATORY | | + + + + + + | Cl | 99 | 98 - 109 mEq/l | [facility] | | | | | | [facility] | | | | | | MEDICAL | | | | | | CENTER - | | | | | | LABORATORY | | + + + + + + | CO2 | 26 | 24 - 31 mEq/L | [facility] | | | | | | [facility] | | | | | | [facility]ICAL | | | | | | CENTER - | | | | | | LABORATORY | | + + + + + + | Anion Gap | 11.5 | 6.0 - 17.0 | [facility] | | | | | | [facility] | | | | | | [facility]ICAL | | | | | | CENTER - | | | | | | LABORATORY | | + + + + + + + + | Specimen | + + | | + + + + + + + | Performing | Address | City/State/Zipcode | Phone Number | | Organization | | | | + + + + + | [facility] | [address] | [place], [place] | [phone] | | [facility] | | [address] | | | - LABORATORY | | | | + + + + + | [facility] | [address] | [place], [place] | | | [facility] | | [id number] | | | - LABORATORY | | | | + + + + + Lipase (01/18/2012 5:25 PM PDT) + +-------+ + + + | Component | Value | Ref Range | Performed | Pathologist | | | | | At | Signature | + +-------+ + + + | Lipase | 20 | 0 - 60 U/L | [facility] | | | | | | [facility] | | | | | | [facility] | | | | | | CENTER - | | | | | | LABORATORY | | + +-------+ + + + + + | Specimen | + + | | + + + + + + + | Performing | Address | City/State/Zipcode | Phone Number | | Organization | | | | + + + + + | [facility] | [address] | [place] | [phone] | | [facility] | | [address] | | | - LABORATORY | | | | + + + + + | [facility] | [address] | [place] | | | [facility] | | [address], [facility] | | | - LABORATORY | | | | + + + + + Amylase (01/18/2012 5:25 PM PDT) + +-------+ + + + | Component | Value | Ref Range | Performed | Pathologist | | | | | At | Signature | + +-------+ + + + | Amylase | 65 | 27 - 100 U/L | [facility] | | | | | | [facility] | | | | | | MEDICAL | | | | | | CENTER - | | | | | | LABORATORY | | + +-------+ + + + + + | Specimen | + + | | + + + + + + + | Performing | Address | City/State/Zipcode | Phone Number | | Organization | | | | + + + + + | [facility] | [address] | [place], [place] | [phone] | | [facility] | | [address] | | | - LABORATORY | | | | + + + + + | [facility] | [address] | [place], [place] | | | [facility] | | [address] [place] [address] | | | - LABORATORY | | | | + + + + + CBC with Differential (01/18/2012 5:25 PM PDT) + + + + + + | Component | Value | Ref Range | Performed | Pathologist | | | | | At | Signature | + + + + + + | White Blood | 11.5 (H) | 4.0 - 11.0 K/uL | [facility] | | | Cells | | | [facility] | | | | | | [facility] | | | | | | CENTER - | | | | | | LABORATORY | | + + + + + + | Red Blood | 4.74 | 3.70 - 5.20 | [facility] | | | Cells | | M/uL | [facility] | | | | | | [facility]ICAL | | | | | | CENTER - | | | | | | LABORATORY | | + + + + + + | Hemoglobin | 13.2 | 11.5 - 16.0 | [facility] | | | | | gm/dL | [facility] | | | | | | MEDICAL | | | | | | CENTER - | | | | | | LABORATORY | | + + + + + + | Hematocrit | 38.7 | 34.0 - 47.0 % | [facility] | | | | | | [facility] | | | | | | MEDICAL | | | | | | CENTER - | | | | | | LABORATORY | | + + + + + + | MCV | 81.5 (L) | 83.0 - 101.0 fL | [facility] | | | | | | [facility] | | | | | | MEDICAL | | | | | | CENTER - | | | | | | LABORATORY | | + + + + + + | MCH | 27.9 (L) | 28.0 - 35.0 pg | [facility] | | | | | | [facility] | | | | | | MEDICAL | | | | | | CENTER - | | | | | | LABORATORY | | + + + + + + | MCHC | 34.2 | 32.0 - 36.0 | [facility] | | | | | g/dL | [facility] | | | | | | MEDICAL | | | | | | CENTER - | | | | | | LABORATORY | | + + + + + + | RDW-CV | 13.7 | <15.0 % | [facility] | | | | | | [facility] | | | | | | MEDICAL | | | | | | CENTER - | | | | | | LABORATORY | | + + + + + + | Platelet | 197 | 140 - 440 K/uL | [facility] | | | Count | | | [facility] | | | | | | MEDICAL | | | | | | CENTER - | | | | | | LABORATORY | | + + + + + + | % | 77.2 (H) | 45 - 75 % | [facility] | | | Neutrophils | | | [facility] | | | | | | MEDICAL | | | | | | CENTER - | | | | | | LABORATORY | | + + + + + + | % | 12.5 (L) | 20 - 45 % | [facility] | | | Lymphocytes | | | [facility] | | | | | | MEDICAL | | | | | | CENTER - | | | | | | LABORATORY | | + + + + + + | % Monocytes | 9.0 | 4 - 12 % | [facility] | | | | | | [facility] | | | | | | MEDICAL | | | | | | CENTER - | | | | | | LABORATORY | | + + + + + + | % | 0.9 | 0 - 5 % | [facility] | | | Eosinophils | | | [facility] | | | | | | MEDICAL | | | | | | CENTER - | | | | | | LABORATORY | | + + + + + + | % Basophils | 0.4 | 0 - 1 % | [facility] | | | | | | [facility] | | | | | | MEDICAL | | | | | | CENTER - | | | | | | LABORATORY | | + + + + + + | Absolute | 8.9 (H) | 1.5 - 6.6 K/uL | [facility] | | | Neutrophils | | | [facility] | | | | | | MEDICAL | | | | | | CENTER - | | | | | | LABORATORY | | + + + + + + | Absolute | 1.4 | 0.6 - 3.2 K/uL | [facility] | | | Lymphocytes | | | [facility] | | | | | | MEDICAL | | | | | | CENTER - | | | | | | LABORATORY | | + + + + + + | Absolute | 1.0 | 0.0 - 1.0 K/uL | [facility] | | | Monocytes | | | [facility] | | | | | | MEDICAL | | | | | | CENTER - | | | | | | LABORATORY | | + + + + + + | Absolute | 0.1 | 0.0 - 0.4 K/uL | [facility] | | | Eosinophils | | | [facility] | | | | | | MEDICAL | | | | | | CENTER - | | | | | | LABORATORY | | + + + + + + | Absolute | 0.0 | 0.0 - 0.1 K/uL | [facility] | | | Basophils | | | [facility] | | | | | | MEDICAL | | | | | | CENTER - | | | | | | LABORATORY | | + + + + + + + + | Specimen | + + | | + + + + + + + | Performing | Address | City/State/Zipcode | Phone Number | | Organization | | | | + + + + + | [facility] | [address] | [place] | [phone] | | [facility] | | [address] | | | - LABORATORY | | | | + + + + + | [facility] | [address] | [place] | | | [facility] | | [address] | | | - LABORATORY | | | | + + + + + documented in this encounter Visit Diagnoses Not on filedocumented in this encounter
--- OUTSIDE RECORDS SUMMARY | ~2020-05-21 | XMS | Encounter Summary ---
Demographics + + + | Address | [address] | | | [place] [address] | + + + | Home Phone | | + + + | Preferred Language | Unknown | + + + | Marital Status | Single | + + + | Mormonism Affiliation | 1041 | + + + | Race | White | + + + | Ethnic Group | Not or | + + + Author + + + | Author | [facility] | | | and [place] | + + + | Organization | [facility] | | | [...] Team Providers + +------+ + | Care Senior Sql Server Dba Name | Role | Phone | + +------+ + | Juan Dong MD | PCP | | + +------+ + Encounter Details +--------+ + + + + | Date | Type | Department | Care Team | Description | +--------+ + + + + | 01/30/ | Hospital | [facility] | [facility] | Visit for screening | | 2017 | Encounter | [facility] M[facility] | Lissett Gomez DO | mammogram | | | | [address] | [address] | | | | | [place] | [place] | | | | | [address] | [address] | | | | | [phone] | | | +--------+ + + + [...] + | ASHANTI TOMOSYN | Routin | 01/30/2017 | Visit for | Results for this | | SCREENING BILATERAL | e | 10:00 AM | screening mammogram | procedure are in the | | | | PDT | | results section. | + +--------+ + + + documented in this encounter Results ASHANTI Tomosynthesis Screening Bilateral (01/30/2017 10:00 AM PDT) + + | Specimen | + + | | + + + + + | Narrative | Performed At | + + + | EXAM: ASHANTI TOMOSYN SCREENING BILATERAL dated 01/30/2017 9:44 AM | [facility] | | HISTORY: Routine Screening. TECHNIQUE: Bilateral digital CC | | | and MLO. Jean Paul synthesis was performed. CAD utilized. | | | COMPARISON: 12/03/2015 and 11/29/2014 FINDINGS: Scattered areas of | | | fibroglandular density are present bilaterally. There are no | | | suspicious masses, area of architectural distortion or suspicious | | | groups of microcalcifications. Benign right breast calcification. | | | Jean Paul images demonstrate no suspicious mass or architectural | | | distortion. Images were reviewed with CAD. IMPRESSION - No | | | mammographic evidence of malignancy. BI-RAD CATEGORY 1: NEGATIVE | | | RECOMMENDATION: Annual screening. Dictated and Signed by: | | | Segundo Foreman MD Electronically signed: 01/30/2017 3:20 PM | | + + + + + | Procedure Note | + + | Flavio, Rad Results In - 01/30/2017 3:23 PM PDT EXAM: ASHANTI TOMOSYN SCREENING BILATERAL | | dated 01/30/2017 9:44 AMHISTORY: Routine Screening. TECHNIQUE: Bilateral digital CC | | and MLO. Jean Paul synthesis was performed. CADutilized.COMPARISON: 12/03/2015 and | | 11/29/2014FINDINGS: Scattered areas of fibroglandular density are present bilaterally. | | There are no suspicious masses, area of architectural distortion or suspiciousgroups of | | microcalcifications. Benign right breast calcification.Jean Paul images demonstrate no | | suspicious mass or architectural distortion. Images were reviewed with CAD.IMPRESSION - | | No mammographic evidence of malignancy.BI-RAD CATEGORY 1: NEGATIVERECOMMENDATION: | | Annual screening.Dictated and Signed by: Segundo Foreman MD Electronically signed: | | 01/30/2017 3:20 PM | |Scattered areas of fibroglandular density are present bilaterally. | | | |There are no suspicious masses, area of architectural distortion or suspicious | |groups of microcalcifications. Benign right breast calcification. | | | |Jean Paul images demonstrate no suspicious mass or architectural distortion. | | | |Images were reviewed with CAD. | | | |IMPRESSION - No mammographic evidence of malignancy. | | | |BI-RAD CATEGORY 1: NEGATIVE | | | |RECOMMENDATION: Annual screening. | | | |Dictated and Signed by: Segundo Foreman MD | | Electronically signed: 01/30/2017 3:20 PM | + + + +---------+ + + [...]
--- OUTSIDE RECORDS SUMMARY | ~2020-05-21 | XMS | Clinical Summary ---
Demographics + + + | Address | [address] | | | [place] [address] | + + + | Home Phone | | + + + | Preferred Language | Unknown | + + + | Marital Status | Single | + + + | Faith Affiliation | CAT | + + + | Race | White | + + + | Ethnic Group | Not or | + + + Author + + + | Author | [facility] | + + + | Organization | [facility] | + + + | Address | Unknown | + + + | Phone | Unavailable | + + + Support + + +---------+ + | Name | Relationship | Address | Phone | + + +---------+ + | Douglas Springer | ECON | Unknown | | + + +---------+ + Care Team Providers + +------+ + | Care Rivet Tester Name | Role | Phone | + +------+ + | Juan Dong MD | PCP | | + +------+ + Source Comments STOR[facility] is fully live on both [facility] and [facility] Allergies + + + + + + | Active Allergy | Reactions | Severity | Noted | Comments | | | | | Date | | + + + + + + | Codeine | Rash | | 03/19/20 | | | | | | 17 | | + + + + + + | Paroxetine Hcl | Anxiety, Rash | Medium | 12/31/19 | | | | | | 15 | | + + + + + + | Prednisone | Hives | | 03/19/20 | | | | | | 17 | | + + + + + + | Fluoxetine Hcl | Unknown | | 07/06/20 | serotonin | | | | | 17 | syndrome?? | + + + + + + | Zoledronic | Nausea and Vomiting | | 03/19/20 | | | Heze-Hyoavnit-Nzhjm | | | 17 | | + + + + + + | Sertraline | Unknown, Anxiety, | Medium | 10/09/19 | serotonin | | | Rash | | 12 | syndrome?? | + + + + + + | Tramadol | Lip Swelling | | 03/19/20 | | | | | | 17 | | + + + + + + Medications + + + +---------+------+------+-------+ | Medication | Sig | Dispensed | Refills | Star | End | Statu | | | | | | t | Date | s | | | | | | Date | | | + + + +---------+------+------+-------+ | cholecalciferol | Take 2,000 Units by | | 0 | | | Activ | | (Vitamin D3) 1,000 | mouth once daily. | | | | | e | | unit oral tablet | | | | | | | + + + +---------+------+------+-------+ | | Take 1 tablet by | | 0 | | | Activ | | multivitamin-mineral | mouth once daily. | | | | | e | | s oral tablet | | | | | | | + + + +---------+------+------+-------+ | Coenzyme Q10 10 mg | Take by mouth. | | 0 | | | Activ | | oral capsule | | | | | | e | + + + +---------+------+------+-------+ | omeprazole 10 mg | Take 2 capsules by | | 0 | 09/1 | | Activ | | oral capsule,delayed | mouth once daily. | | | 5/20 | | e | | release(DR/EC) | | | | 17 | | | + + + +---------+------+------+-------+ | acetaminophen 325 | Take 2 tablets by | | 0 | 11/0 | | Activ | | mg oral | mouth every four | | | 8/20 | | e | | tabletIndications: | hours as needed. | | | 17 | | | | Primary | | | | | | | | hyperparathyroidism | | | | | | | | ([facility]) | | | | | | | + + + +---------+------+------+-------+ Active Problems + + + | Problem | Noted Date | + + + | Cough | 05/15/2017 | + + + | Seasonal allergies | 03/19/2017 | + + + | GERD (gastroesophageal reflux disease) | 03/19/2017 | + + + | Primary hyperparathyroidism | 03/19/2017 | + + + | Osteoporosis without pathological fracture | 03/19/2017 | + + + Family History + + +------+ + | Medical History | Relation | Name | Comments | + + +------+ + | Blood Disease | Brother | | | + + +------+ + | Heart Attack | Father | | | + + +------+ + | Hypertension | Mother | | | + + +------+ + + +------+--------+ + | Relation | Name | Status | Comments | + +------+--------+ + | Brother | | | | + +------+--------+ + | Father | | | | + +------+--------+ + | Mother | | | | + +------+--------+ + Social History + +-------+ +--------+------+ | [...] on file | | + + + Last Filed Vital Signs + + + + + | Vital Sign | Reading | Time Taken | Comments | + + + + + | Blood Pressure | 100/52 | 07/08/2017 7:43 AM | | | | | PST | | + + + + + | Pulse | 70 | 07/08/2017 7:43 AM | | | | | PST | | + + + + + | Temperature | 36.8 C (98.2 F) | 07/08/2017 7:43 AM | | | | | PST | | + + + + + | Respiratory Rate | 18 | 07/08/2017 7:43 AM | | | | | PST | | + + + + + | Oxygen Saturation | 95% | 07/08/2017 7:43 AM | | | | | PST | | + + + + + | Inhaled Oxygen | - | - | | | Concentration | | | | + + + + + | Weight | 55.3 kg (122 lb) | 07/07/2017 8:54 AM | | | | | PST | | + + + + + | Height | 168.9 cm (5' 6.5") | 07/07/2017 8:54 AM | | | | | PST | | + + + + + | Body Mass Index | 19.4 | 07/07/2017 8:54 AM | | | | | PST | | + + + + + Plan of Treatment + + +-------+ + | Health Maintenance | Due Date | Last | Comments | | | | Done | | + + +-------+ + | Pneumococcal | | | | | vaccination (1 of 1 | 2 | | | | - PPSV23) | | | | + + +-------+ + | Influenza (Flu) | | | | | vaccination (#1) | 0 | | | + + +-------+ + Results Not on filefrom Last 3 Months Advance Directives + + + + + | Code Status | Date | Date | Comments | | | Activated | Inactivated | | + + + + + | Full Code | 07/07/2017 | 07/08/2017 | | | | 5:34 PM | 7:03 PM | | + + + + + + + + +---+ | | | | | + + + +---+ | Full Code | 07/07/2017 | 07/07/2017 | | | | 8:52 AM | 5:34 PM | | + + + +---+
--- OUTSIDE RECORDS SUMMARY | ~2020-05-21 | XMS | Encounter Summary ---
Demographics + + + | Address | [address] | | | [place] [address] | + + + | Home Phone | | + + + | Preferred Language | Unknown | + + + | Marital Status | Single | + + + | Judaism Affiliation | CAT | + + + | Race | White | + + + | Ethnic Group | Not or | + + + Author + + + | Author | [facility] | + + + | Organization | [facility] | + + + | Address | Unknown | + + + | Phone | Unavailable | + + + Support + + +---------+ + | Name | Relationship | Address | Phone | + + +---------+ + | Douglas Springer | ECON | Unknown | | + + +---------+ + Care Team Providers + +------+ + | Care Envelope Folding Machine Adjuster Name | Role | Phone | + +------+ + | Juan Dong MD | PCP | | + +------+ + Reason for Visit + +--------+ + | Reason | Onset | Comments | | | Date | | + +--------+ + | Lab Results | 05/21/ | | | | 2016 | | + +--------+ + Encounter Details +--------+ + + + + | Date | Type | Department | Care Team | Description | +--------+ + + + + | 05/21/ | Telephone | Otolaryngology | Ricco Salmeron, | Lab Results | | 2017 | | Thyroid Services at | PA-C | | | | | [facility] [address] | | | | | | Physician's | | | | | | [address], [address] floor | | | | | | [place], [place] | | | | | | [address] | | | | | | [phone] | | | +--------+ + + + [...] + + documented as of this encounter Miscellaneous Notes Telephone Encounter - Ricco Salmeron PA-C - 05/21/2017 1:57 PM PDTCalling to let patient know about CT results. No parathyroid adenoma localized per radiology read however on revi ew of the images there appears to be a candidate on the left paraesophageal side that is con cordant with what is show on the US. Will plan to start on the left, possible bilateral. R eviewed this with her, no further questions. Ricco Salmeron PA-C documented in this encounter Plan of Treatment Not on filedocumented as of this encounter Visit Diagnoses Not on filedocumented in this encounter"
--- OUTSIDE RECORDS SUMMARY | ~2020-05-21 | XMS | Encounter Summary ---
Demographics + + + | Address | [address] | | | [place] [address] | + + + | Home Phone | | + + + | Preferred Language | Unknown | + + + | Marital Status | Single | + + + | Scientology Affiliation | 1041 | + + + | Race | White | + + + | Ethnic Group | Not or | + + + Author + + + | Author | [facility] | | | and [place] | + + + | Organization | [facility] | | | and [...] Team Providers + +------+ + | Care Data Entry Operator Name | Role | Phone | + +------+ + | Mick Malik MD | PCP | | + +------+ + Encounter Details +--------+ + + + + | Date | Type | Department | Care Team | Description | +--------+ + + + + | 01/08/ | Orders Only | [facility] | Conversion | | | 2014 | | INFECTIOUS DISEASE | Transaction, | | | | | [address] | Provider Unknown | | | | | [place], [place] | | | | | | [address] | (Fax) | | | | | [phone] | | | +--------+ + + + [...] +--------+ + + + | CBC WITH MANUAL | Routin | 01/08/2015 | | Results for this | | DIFFERENTIAL | e | 12:00 AM | | procedure are in the | | | | PDT | | results section. | + +--------+ + + + | COMPREHENSIVE | Routin | 01/08/2015 | | Results for this | | METABOLIC PANEL | e | 12:00 AM | | procedure are in the | | | | PDT | | results section. | + +--------+ + + + documented in this encounter Results CBC with Manual Differential (01/08/2015 12:00 AM PDT) + +-------+ + + + | Component | Value | Ref Range | Performed | Pathologist | | | | | At | Signature | + +-------+ + + + | WBC | 8.4 | 10 | EXTERNAL | | | | | | LAB | | + +-------+ + + + | Non- | 3.35 | 10 | EXTERNAL | | | Red Blood | | | LAB | | | Cells | | | | | | Counted | | | | | + +-------+ + + + | Hemoglobin | 9.1 | g/dL | EXTERNAL | | | | | | LAB | | + +-------+ + + + | Hematocrit, | 27.9 | % | EXTERNAL | | | POC | | | LAB | | + +-------+ + + + | MCV | 83.3 | fL | EXTERNAL | | | | | | LAB | | + +-------+ + + + | MCH | 27 | pg | EXTERNAL | | | | | | LAB | | + +-------+ + + + | MCHC | 33 | g/dL | EXTERNAL | | | | | | LAB | | + +-------+ + + + | RDW-CV | 14.4 | % | EXTERNAL | | | | | | LAB | | + +-------+ + + + | Platelet | 261 | K/ L | EXTERNAL | | | Count | | | LAB | | | Plasma | | | | | + +-------+ + + + | MPV | | fL | EXTERNAL | | | | | | LAB | | + +-------+ + + + | % Segmented | 71.5 | % | EXTERNAL | | | | | | LAB | | | Neutrophils | | | | | + +-------+ + + + | % | 19.4 | % | EXTERNAL | | | Lymphocytes | | | LAB | | + +-------+ + + + | % Monocytes | 7.5 | % | EXTERNAL | | | | | | LAB | | + +-------+ + + + | % | 1.0 | % | EXTERNAL | | | Eosinophils | | | LAB | | + +-------+ + + + | % Basophils | 0.6 | % | EXTERNAL | | | | | | LAB | | + +-------+ + + + | Absolute | | / L | EXTERNAL | | | Neutrophils | | | LAB | | + +-------+ + + + | Absolute | | / L | EXTERNAL | | | Lymphocytes | | | LAB | | + +-------+ + + + | Absolute | | / L | EXTERNAL | | | Monocytes | | | LAB | | + +-------+ + + + | Absolute | | / L | EXTERNAL | | | Eosinophils | | | LAB | | + +-------+ + + + | Absolute | | / L | EXTERNAL | | | Basophils | | | LAB | | + +-------+ + + + + + | Specimen | + + | Blood specimen | | (specimen) | + + + +---------+ + + | Performing | Address | City/State/Zipcode | Phone Number | | Organization | | | | + +---------+ + + | EXTERNAL LAB | | | | + +---------+ + + Comprehensive Metabolic Panel (01/08/2015 12:00 AM PDT) + +-------+ + + + | Component | Value | Ref Range | Performed | Pathologist | | | | | At | Signature | + +-------+ + + + | Glucose, | 147 | mg/dL | EXTERNAL | | | Fasting | | | LAB | | + +-------+ + + + | BUN | 11 | mg/dL | EXTERNAL | | | | | | LAB | | + +-------+ + + + | Creatinine | 0.84 | mg/dL | EXTERNAL | | | | | | LAB | | + +-------+ + + + | BUN/Creatin | 13.1 | | EXTERNAL | | | ine Ratio | | | LAB | | + +-------+ + + + | Calcium | 9.1 | mg/dL | EXTERNAL | | | | | | LAB | | + +-------+ + + + | Protein, | 5.9 | g/dL | EXTERNAL | | | Total | | | LAB | | + +-------+ + + + | Albumin | 3.6 | | EXTERNAL | | | | | | LAB | | + +-------+ + + + | Globulin | 2.3 | | EXTERNAL | | | | | | LAB | | + +-------+ + + + | A/G Ratio | 1.6 | | EXTERNAL | | | | | | LAB | | + +-------+ + + + | Bilirubin | 1.7 | mg/dL | EXTERNAL | | | Total | | | LAB | | + +-------+ + + + | ALP, | 72 | | EXTERNAL | | | External | | | LAB | | + +-------+ + + + | ALT | 65 | U/L | EXTERNAL | | | | | | LAB | | + +-------+ + + + | AST | 39 | U/L | EXTERNAL | | | | | | LAB | | + +-------+ + + + | Na | 138 | mmol/L | EXTERNAL | | | | | | LAB | | + +-------+ + + + | K | 4.1 | mmol/L | EXTERNAL | | | | | | LAB | | + +-------+ + + + | Cl | 102 | mmol/L | EXTERNAL | | | | | | LAB | | + +-------+ + + + | CO2 | 26 | mmol/L | EXTERNAL | | | | | | LAB | | + +-------+ + + + | Anion Gap | 14.1 | mmol/L | EXTERNAL | | | | | | LAB | | + +-------+ + + + | Estimated | 67 | mg/dL | EXTERNAL | | | GFR | | | LAB | | + +-------+ + + + [...]
--- OUTSIDE RECORDS SUMMARY | ~2020-05-21 | XMS | Encounter Summary ---
Demographics + + + | Address | [address] | | | [place] [address] | + + + | Home Phone | | + + + | Preferred Language | Unknown | + + + | Marital Status | Single | + + + | Mandaen Affiliation | CAT | + + + | Race | White | + + + | Ethnic Group | Not or | + + + Author + + + | Author | [facility] | + + + | Organization | [facility] | + + + | Address | Unknown | + + + | Phone | Unavailable | + + + Support + + +---------+ + | Name | Relationship | Address | Phone | + + +---------+ + | Douglas Springer | ECON | Unknown | | + + +---------+ + Care Team Providers + +------+ + | Care Axminster Weaver Name | Role | Phone | + +------+ + | Juan Dong MD | PCP | | + +------+ + Encounter Details +--------+ + + + + | Date | Type | Department | Care Team | Description | +--------+ + + + + | 01/01/ | Document-Sc | Health Information | Unknown . | | | 2014 | anned | [phone] | | | | | [address] | | | | | | Mailcode: [id number] | | | | | | [facility] | | | | | | [place], [place] | | | | | | [address] | | | | | | [phone] | | | +--------+ + + + [...] | + +--------+ + + + | OUTSIDE CARDIOLOGY | | 01/01/2015 | | Results for this | | | | 12:00 AM | | procedure are in the | | | | PDT | | results section. | + +--------+ + + + | RADIOLOGY | | 01/01/2015 | | Results for this | | | | 12:00 AM | | procedure are in the | | | | PDT | | results section. | + +--------+ + + + documented in this encounter Results OUTSIDE CARDIOLOGY (01/01/2015 12:00 AM PDT) + + + | Narrative | Performed At | + + + | | | + + + RADIOLOGY (01/01/2015 12:00 AM PDT) + + + | Narrative | Performed At | + + + | | | + + + documented in this encounter Visit Diagnoses Not on filedocumented in this encounter"
--- OUTSIDE RECORDS SUMMARY | ~2020-05-21 | XMS | Encounter Summary ---
Demographics + + + | Address | [address] | | | [place] [address] | + + + | Home Phone | | + + + | Preferred Language | Unknown | + + + | Marital Status | Single | + + + | Yarsani Affiliation | CAT | + + + | Race | White | + + + | Ethnic Group | Not or | + + + Author + + + | Author | [facility] | + + + | Organization | [facility] | + + + | Address | Unknown | + + + | Phone | Unavailable | + + + Support + + +---------+ + | Name | Relationship | Address | Phone | + + +---------+ + | Douglas Springer | ECON | Unknown | | + + +---------+ + Care Team Providers + +------+ + | Care Dining Host Name | Role | Phone | + +------+ + | Juan Dong MD | PCP | | + +------+ + Encounter Details +--------+ + + + + | Date | Type | Department | Care Team | Description | +--------+ + + + + | 02/18/ | Abstract | Otolaryngology | Rosalind Wu, | | | 2017 | | Thyroid Services at | [address] | | | | | [facility] [address] | | | | | [address] | [place], [place] | | | | | Physician's | [address] | | | | | [address], [address] floor | [phone] | | | | | [facility] [place] | | | | | | [address] | | | | | | [phone] | | | +--------+ + + + [...]
--- OUTSIDE RECORDS SUMMARY | ~2020-05-21 | XMS | Encounter Summary ---
Demographics + + + | Address | [address] | | | [place] [address] | + + + | Home Phone | | + + + | Preferred Language | Unknown | + + + | Marital Status | Single | + + + | Bahai Affiliation | 1041 | + + + | Race | White | + + + | Ethnic Group | Not or | + + + Author + + + | Author | [facility] | | | and [place] | + + + | Organization | [facility] | | | and [...] Team Providers + +------+ + | Care Warehouse Order Selector Name | Role | Phone | + +------+ + PCP | Unavailable | + +------+ + Encounter Details +--------+ + + + + | Date | Type | Department | Care Team | Description | +--------+ + + + + | 04/28/ | Hospital | [facility] | Porfirio, Christopher Khan, | | | 2009 | Encounter | [facility] | MD [address] | | | | | CENTER [address] | [facility] [place] | | | | | [place], [place] | [place] [address] | | | | | [address] | [phone] | | | | | [phone] | | | +--------+ + + + [...]
--- OUTSIDE RECORDS SUMMARY | ~2020-05-21 | XMS | Encounter Summary ---
Demographics + + + | Address | [address] | | | [place] [address] | + + + | Home Phone | | + + + | Preferred Language | Unknown | + + + | Marital Status | Single | + + + | Christian Affiliation | CAT | + + + | Race | White | + + + | Ethnic Group | Not or | + + + Author + + + | Author | [facility] | + + + | Organization | [facility] | + + + | Address | Unknown | + + + | Phone | Unavailable | + + + Support + + +---------+ + | Name | Relationship | Address | Phone | + + +---------+ + | Douglas Springer | ECON | Unknown | | + + +---------+ + Care Team Providers + +------+ + | Care Curator [employer] Name | Role | Phone | + +------+ + | Juan Dong MD | PCP | | + +------+ + Reason for Visit AUTH/CERT +--------+--------+ + + + + | Status | Reason | Specialty | Diagnoses / | Referred By | Referred To | | | | | Procedures | Contact | Contact | +--------+--------+ + + + + | | | | | | | +--------+--------+ + + + + Encounter Details +--------+ + + + + | Date | Type | Department | Care Team | Description | +--------+ + + + + | 07/07/ | Hospital | [address] | Rosalind uW, | | | 2017 - | Encounter | [address] | [place] [address] [facility] | | | | [facility] | [address] | | | 07/08/ | | [place] | [place] | | | 2017 | | [address] | [id number] | | | | | [phone] | [phone] | | | | | | | | +--------+ + + + [...] + + documented as of this encounter Last Filed Vital Signs + + + [...] + + + documented in this encounter Discharge Summaries Rosalind Wu MD - 07/08/2017 12:37 PM PSTFormatting of this note might be different fr om the original. DOS: 07/08/2017 12:37 PM INPATIENT PHYSICIAN DISCHARGE SUMMARY Author: Deonte Zambrano PA-C Attending Physician: Rosalind Wu MD PCP: Juan Dong MD Admission Date: 07/07/2017 Discharge Date: 08 Jul 2017 Diagnoses Principal Final Diagnosis: Primary hyperparathyroidism. Past Medical History: Anxiety state GERD (gastroesophageal reflux disease) Hearing loss Comment: slight in left ear Hx of myocardial infarction 12/2014: [place] (myocardial infarction) Comment: X [address] Wu (ENT) 07/07/2017 Procedure: Parathyroidectomy Brief Hospital Course The patient underwent above procedure without complication. Voice good; No nausea; Pain under good control; No breathing difficulties. Post op PTH: 6 to 11 Ionized calculated Calcium at discharge: 1.18 Medications: Medication List START taking these medications acetaminophen 325 mg Tab Commonly known as: TYLENOL Take 2 tablets by mouth every four hours as needed. calcium carbonate chewable 300 mg elemental (750 mg total salt) Chew Commonly known as: TUMS Chew and swallow 1 tablet two times daily for 30 days. CONTINUE taking these medications cholecalciferol (Vitamin D3) 1,000 unit Tab Commonly known as: VITAMIN D-3 Coenzyme Q10 10 mg Cap Commonly known as: CO Q-10 multivitamin-minerals Tab omeprazole 10 mg Cpdr Commonly known as: PRILOSEC Take 2 capsules by mouth once daily. Diet Regular Regular diet- There are no restrictions to your diet. You may eat or drink whatever you pr efer, though healthy food choices are recommended. Other Discharge Orders and Instructions Diet: Soft or Regular as tolerated. Activity: No heavy lifting or driving for 3-4 days. No driving for 3 days or if you are taking narcotics for pain. Special Instructions: Do not take Aspirin for one week. Do not take nonsteroidal anti-inflammatory pain medicatio ns such as Motrim, Advil, etc for 3 days. Wound Care Dermabond Skin Glue: You incision is covered in dermabond skin glue. This glue will come off on its own in 1-2 weeks. You may get your incision wet immediately. It is ok to wash t he area surrounding your incision with soap and water. Do not scrub your incision. Call: and page ENT resident information technology program manager if you have any of the following: Difficulty breathing or unusual shortness of breath Excessive welling, bleeding or drainage at the operative site Fevers, chills, increased pain that is not relieved by pain medications Persistent nausea or vomiting Please watch out for symptoms of hypocalcemia: muscle cramps, numbness/tingling in the lips , perioral and fingers, toes,confusion and mental status changes. If your are expecting any of these symtoms, please go to your local ED and/or contact us at [phone] Follow Up Appointments: Please call and arrange an appointment. Come back to see Dr. Rosalind Wu MD in 2 week s. Prior to her appointment, please have your labs drawn prior to your appointment date at [facility] next week in the morning. Please continue to take 300 mg elemental of TUMS (1 tablet) twice daily Pertinent labs: Recent Labs 07/07/17 1150 07/07/17 1433 07/07/17 1802 NA 137 -- 136 K 4.9 -- 4.3 CL 103 -- 102 BICARB 26 -- 23 BUN 19 -- 18 CR 0.88 -- 0.76 GLU 86 138* 206* CA 9.6 -- 8.7 Recent Labs 07/07/17 1150 07/07/17 1802 AST 30 26 ALT 26 26 TBILI 1.5* 1.3* AP 100 93 ALB 4.0 3.5 TP 7.3 7.1 Vitals on discharge: Ht 1.689 m (5' 6.5"), Wt 55.3 kg (122 lb), BP 100/52, Pulse 70, Temper ature 36.8 C (98.2 F), RR 18, SpO2 95%, BMI 19.4 kg/(m^2). Physical Exam on discharge: General: awake, alert in NAD Neck: soft, flat, no hematoma, no crepitus. Incision c/d/i with Dermabond No perioral/extremities numbness and tingling sensation present Respiratory: Breathing unlabored on RA Outstanding labs/studies: Surgical Pathology Discharging Physician: Deonte Zambrano PA-C Attending Physician: Rosalind Wu MD I spent 52 minutes in the care of this patient. Greater than 50% of the time was spent cou nseling and coordination of care, including physical examination, wound management and coord inating follow-up appointment. DEONTE ZAMBRANO PA-C Department of Otolaryngology/Head and Neck Surgery Mail Code PV[address] [place] [address] Pager [phone] Consult/Night/Weekend Pager: [phone] I personally interviewed the patient, duplicated the pertinent parts of the physical examin ation and personally formulated the plan with the PA. I have reviewed, entered my findings, and agree with the PA's documentation. Rosalind Wu M.D. documented in this encounter Medications at Time of Discharge + + + +---------+ + + | Medication | Sig | Dispensed | Refills | Start | End Date | | | | | | Date | | + + + +---------+ + + | acetaminophen 325 | Take 2 tablets by | | 0 | 07/08/20 | | | mg oral | mouth every four | | | 17 | | | tabletIndications: | hours as needed. | | | | | | Primary | | | | | | | hyperparathyroidism | | | | | | | ([facility] | | | | | | + + + +---------+ + + | cholecalciferol | Take 2,000 Units by | | 0 | | | | (Vitamin D3) 1,000 | mouth once daily. | | | | | | unit oral tablet | | | | | | + + + +---------+ + + | Coenzyme Q10 10 mg | Take by mouth. | | 0 | | | | oral capsule | | | | | | + + + +---------+ + + | | Take 1 tablet by | | 0 | | | | multivitamin-mineral | mouth once daily. | | | | | | s oral tablet | | | | | | + + + +---------+ + + | omeprazole 10 mg | Take 2 capsules by | | 0 | 05/15/20 | | | oral capsule,delayed | mouth once daily. | | | 17 | | | release(/EC) | | | | | | + + + +---------+ + + documented as of this encounter Progress Notes Rosalidn Wu MD - 07/07/2017 2:36 PM PSTOPnote dictated Job # [id number] signed by Rosalind Wu MD at 07/07/2017 2:36 PM PSTdocali lewis in this encounter H&P Notes Ruth Carpio MD - 07/07/2017 10:55 AM PST Chief Complaint: hyperarathyroisism HPI: Joselyn Leung is a 71 y.o. female who has osteoporosis and is indicated for removal of p arathyroid adenoma. No changes to her health since last seen in clinic PAST MEDICAL HISTORY: Past Medical History: Diagnosis Date Anxiety state GERD (gastroesophageal reflux disease) Hearing loss slight in left ear Heart attack Hx of myocardial infarction [place] (myocardial infarction) 12/2014 X 2 Migraine Pneumonia due to organism PONV (postoperative nausea and vomiting) PAST SURGICAL HISTORY: Past Surgical History Procedure Laterality Date section 1977,1979 Tonsil and adenoid surgery 1951 Carpal tunnel release Bilateral 1981,1982 Cholecystectomy 2000 L5 laminectomy Cataract extraction with lens implant Bilateral HOME MEDICATIONS: lactated Ringers IV, 10 mL/hr, intravenous, PROCEDURE CONTINUOUS lidocaine (XYLOCAINE) 10 mg/mL (1 %) injection, , subcutaneous, PREPROCEDURE PRN scopolamine (TRANSDERM-SCOP) 1 mg over 3 days 1 patch, 1 patch, transdermal, ONCE ALLERGIES: Allergies Allergen Reactions Paroxetine Hcl Anxiety and Rash Sertraline Unknown, Anxiety and Rash serotonin syndrome?? Codeine Rash Prednisone Hives Prozac [Fluoxetine Hcl] Unknown serotonin syndrome?? Reclast [Zoledronic Bysx-Yqgpdsbw-Ychox] Nausea and Vomiting Tramadol Lip Swelling SOCIAL HISTORY: Social History Substance Use Topics Smoking status: Never Smoker Smokeless tobacco: Never Used Alcohol use Yes Comment: social FAMILY HISTORY: Family History Problem Relation Hypertension Mother Heart Attack Father Blood Disease Brother REVIEW OF SYSTEMS: Gen: no fevers, chills, weight loss HEENT: no post nasal drip, sore throat Resp: no SOB, cough, wheezing. CV: no chest pain, palpitations, dyspnea, claudication GI: No nausea, vomiting, diarrhea, constipation, melena, hematochezia. : no changes in urination or frequency/urge/incontinence. Skin: no changes in skin color, suspicious/new lesions, itching, or flushing. Heme: no easy bruising or bleeding, no enlarged lymph nodes. Endo: no excessive thirst or temperature sensitivity. MSK: no joint pain, muscle aches/pains. Allergic: no seasonal allergies, hives, rash, or exposure to infectious diseases. PHYSICAL EXAM: BP 136/79 | Pulse 94 | Temp 36.5 C (97.7 F) | RR 16 | Ht 1.689 m (5' 6.5") | Wt 55.3 kg (122 lb) | SpO2 100% | BMI 19.4 kg/(m^2) General: Alert and oriented, NAD HEENT: Sclerae anicteric, EOMI Respiratory: Unlabored, CTA throughout CV: RRR, no murmurs/rubs/gallops ASSESSMENT AND PLAN: To OR for parathyroidectomy. Admission bs d/c pending PTH. documented in this e ncounter Procedure Notes Rosalind Wu MD - 07/07/2017 2:56 PM PSTAssociated Order(s): OPERATION RECORDDate of Service: 07/07/2017 Attending Surgeon:Rosalind Wu MD Biology Internship(s):MD Ricco Romero PA-C Preoperative Diagnosis: Primary hyperparathyroidism. Postoperative Diagnosis: Primary hyperparathyroidism. Procedure: Parathyroidectomy. Operative Findings: Enlarged left superior (paraesophageal) parathyroid adenoma measuring approximately 2 cm x 3 mm. This was also noted to be enhancing on the CT scan. The other 3 parathyroid glands were identified, which were all normal in size, although the right super ior was also paraesophageal and measured approximately 14 mm x 2 mm. Surgical Procedure: The patient was intubated with a nerve monitoring endotracheal tube. Local anesthesia was infiltrated over the anticipated incision site as well as along the ant erior borders of the sternocleidomastoid muscle. An incision was made midway between the cr icoid and the sternal notch. Skin flaps were elevated. The left side was explored first. The recurrent laryngeal nerve was identified after rotating the thyroid lobe medially. Ante rior to the nerve, below the thyroid lobe was a normal-appearing parathyroid at the tip of t he thymic fat remnant. Approximately 1/3 of that was biopsied and sent to Surgical Patholog y for frozen section. Meanwhile, we followed the nerve up superiorly and protected it. Pos terior and lateral to the nerve was an enlarged superior parathyroid gland which was long an d tubular and sitting on the spine next to the esophagus. One-half of it was sent to Surgic al Pathology to confirm it is parathyroid. The rest of it was excised. Attention was directed to the right side where the right thyroid lobe was then reflected me dially. Just posterior to the inferior pole of the thyroid was a parathyroid gland that was identified. It was flat and triangular-shaped but normal size. Approximately 1/3 of it wa s biopsied. The rest of it was left in situ on its blood supply. The recurrent laryngeal n erve was identified posterior to it. Posterolateral to the insertion of the nerve into the cricothyroid muscle, we found the superior parathyroid gland which was tubular as well. It measured approximately 14 mm x 2 mm in size. One-half of that was biopsied and sent to Surg ical Pathology. All of the specimens came back parathyroid tissue. Of note, the right infe rior one was read as hypercellular, however, it was visually the most normal-appearing gland . We had sent an intraparathyroid hormone level preoperatively which was 1:41, approximatel y 7 minutes after the left superior parathyroid was completely excised. It came back 30.6. Another 5 minutes after that, the level was reported to be 6.85. The remaining 3 parathyro id glands were marked with hemoclips adjacent to the parathyroid glands. Hemostasis was ach ieved meticulously after making sure the wound was completely dry. The strap muscles were c losed. The platysma layer was closed and the incision was closed with interrupted subcuticu lar 4-0 Polysorb sutures and running 4-0 monofilament suture. Prior to closure, we injected the wound with local anesthetic along the incision site as well as along the anterior olmstead ocleidomastoid muscle for superficial block. The patient tolerated the procedure well without any complications. The recurrent laryngeal nerves were restimulated prior to closure and they were both intact bilaterally. The patient was awakened from anesthesia, extubated, sent to the [facility] in satisfactory condition. Complications: None. Estimated Blood Loss: Approximately 20 mL. I was physically present for the entire procedure. Rosalind Wu MD MLS/MODL /[id number] signed by Rosalind Wu MD at 07/08/2017 8:32 AM PSTdocumented in this encounter Miscellaneous Notes Handoff - Kesha Jackman RN - 07/08/2017 10:37 AM PSTNursing Handoff Patient Daily Goal: talk to family (07/08/17 0448) [facility] IP NURSE HANDOFF: [facility] hospital course events: S/P 4 Gland exploration, removal of L schilling perior parathyroid gland Hx: Anxiety, GERD, [place] 2015, PONV, migraine SAFETY Patient/Family Target: Joselyn will remain free from falls during the shift. Progress to Target: Improving As evidenced by: Joselyn has been OOB independently and she is doing well. COMFORT/ANXIETY/BEHAVIOR Patient/Family Target: Joselyn's pain will be well controlled with oral pain meds. Progress to Target: Improving As evidenced by: Joselyn has not complained of any pain and she appears comfortable and able to rest. NURSING ASSESSMENT & RECOMMENDATIONS FORWARD Nursing Assessment of Patient Stability Risk: Moderately stable Recommendations Forward: Joselyn did well overnight. Her pain is well controlled. She is am bulating and voiding. She is tolerating food and liquids. She walked off the unit and her drove her home. She understood her DC instructions and received her tums prescripti on and lab paperwork. For Thursday Auditing: Did the Pt upgrade to Inpatient? no Was Case Management involved? no Was Social Work involved? no Was the Length of Stay >1 midnight? If yes, why? Please explain any issues that arose on the weekend where applicable (will be the exception ). andoff - Pawan Flores RN - 07/08/2017 3:18 AM PSTNursing Handoff Patient Daily Goal: talk to family (07/07/17 3285) [facility] IP NURSE HANDOFF: [facility] hospital course events: Procedure: 07/07/17 - Left superior parat hyroidectomy, 4 samples for pathology PMHx: Hypothyroidism, GERD, Hearing loss in left ear, [place] x 2, Migraine, Pneumonia, Asthma SAFETY Patient/Family Target: Joselyn will ambulate 1x in toth Progress to Target: Improving As evidenced by: Ambulated up to BR several times with SBA. Has some dizziness with ambulation. She takes her time getting to edge of bed and needs time before she stands. Otherwise tolerates well. She has been walking back ind from BR COMFORT/ANXIETY/BEHAVIOR Patient/Family Target: Joselyn will have tolerable pain control to rest Progress to Target: Improving As evidenced by: Joselyn reports baseline pain in bilateral legs in calfs, hot packs, walking and SCDs help. She reports minimal pain from neck incision and has been only receiving Tylenol and ice pac ks to neck. This allows her to rest comfortably. NURSING ASSESSMENT & RECOMMENDATIONS FORWARD Nursing Assessment of Patient Stability Risk: Moderately stable Recommendations Forward: Tolerated reg diet overnight SL RA SBA Voids Pain- Tylenol/ice packs Barriers to discharge: Meeting all d/c goals this AM andcarol - Sa luis Conde RN - 07/07/2017 7:34 PM PSTNursing Handoff Patient Daily Goal: Pain management, Eat, Walk, Rest (07/07/17 0787) [facility] IP NURSE HANDOFF: [facility] hospital course events: Procedure: 07/07/17 - Left superior parat hyroidectomy, 4 samples for pathology PMHx: Hypothyroidism, GERD, Hearing loss in left ear, [place] x 2, Migraine, Pneumonia, Asthma SAFETY Patient/Family Target: Joselyn will demonstrate safe ambulation from the stretcher to the bed. Progress to Target: Improving As evidenced by: Joselyn was able to walk from the stretcher to the bed, but reported some slight dizziness. Joselyn later ambulated in the hallway with this RN without incident. NURSING ASSESSMENT & RECOMMENDATIONS FORWARD Nursing Assessment of Patient Stability Risk: Moderately stable Recommendations Forward: - Pain management - BLE with numbness/tingling and pain, intermitt ent at baseline. notified. Metabolic panel unremarkable. PO tylenol given. Continue to mo nitor. - Tolerating clear liquids. - Ambulated x 2 this shift. - Voided a large amount in PACU. Barriers to discharge: - Labs in the AM - Above documented in this encou nter Plan of Treatment Not on filedocumented as of this encounter Procedures + +--------+ + + + | Procedure Name | Priori | Date/Time | Associated Diagnosis | Comments | | | ty | | | | + +--------+ + + + | CALCIUM, IONIZED, | Urgent | 07/08/2017 | | Results for this | | WHOLE BLOOD | | 11:24 AM | | procedure are in the | | | | PST | | results section. | + +--------+ + + + | OPERATION RECORD | | 07/08/2017 | | Results for this | | | | 8:32 AM | | procedure are in the | | | | PST | | results section. | + +--------+ + + + | PTH, SERUM | Routin | 07/08/2017 | | Results for this | | | e | 4:56 AM | | procedure are in the | | | | PST | | results section. | + +--------+ + + + | LIVER SET | Routin | 07/07/2017 | | Results for this | | (AST,ALT,BILI | e | 6:02 PM | | procedure are in the | | TOTAL,BILI | | PST | | results section. | | DIRECT,ALK | | | | | | PHOS,ALB,PROT TOTAL) | | | | | + +--------+ + + + | BASIC METABOLIC SET | Routin | 07/07/2017 | | Results for this | | (NA, K, CL, TCO2, | e | 6:02 PM | | procedure are in the | | BUN, CR, GLU, CA) | | PST | | results section. | + +--------+ + + + | CAPILLARY BLOOD | Routin | 07/07/2017 | Primary | Results for this | | GLUCOSE (NO CHG), | e | 2:33 PM | hyperparathyroidism | procedure are in the | | POC | | PST | (HCC) | results section. | + +--------+ + + + | PTH - OPERATIVE | Routin | 07/07/2017 | | Results for this | | | e | 1:15 PM | | procedure are in the | | | | PST | | results section. | + +--------+ + + + | PTH - OPERATIVE | Routin | 07/07/2017 | | Results for this | | | e | 1:10 PM | | procedure are in the | | | | PST | | results section. | + +--------+ + + + | LIVER SET | Routin | 07/07/2017 | | Results for this | | (AST,ALT,BILI | e | 11:50 AM | | procedure are in the | | TOTAL,BILI | | PST | | results section. | | DIRECT,ALK | | | | | | PHOS,ALB,PROT TOTAL) | | | | | + +--------+ + + + | BASIC METABOLIC SET | Routin | 07/07/2017 | | Results for this | | (NA, K, CL, TCO2, | e | 11:50 AM | | procedure are in the | | BUN, CR, GLU, CA) | | PST | | results section. | + +--------+ + + + | PTH - OPERATIVE | Routin | 07/07/2017 | | Results for this | | | e | 11:18 AM | | procedure are in the | | | | PST | | results section. | + +--------+ + + + | PARATHYROIDECTOMY W/ | Electi | 07/07/2017 | | | | CRYOPRESERVATION | ve | 11:02 AM | Hyperparathyroidism | | | | Surgic | PST | (HCC) | | | | al | | | | + +--------+ + + + +---+--------+ | | | | | Specia | | | l | | | Needs | | | | | | OVERNI | | | GHT | | | DAYPAT | | | IENT | +---+--------+ + +--------+ +---+ + | SURGICAL PATHOLOGY | Routin | 07/07/2017 | | Results for this | | | e | | | procedure are in the | | | | | | results section. | + +--------+ +---+ + documented in this encounter Results CALCIUM, IONIZED, WHOLE BLOOD (07/08/2017 11:24 AM PST) + +-------+ + + + | Component | Value | Ref Range | Performed | Pathologist | | | | | At | Signature | + +-------+ + + + | MARGARITA ICA, | 1.19 | 1.14 - 1.32 | [facility] | | | WHOLE BLD | | mmol/L | LABORATORY | | | | | | SERVICES, | | | | | | CORE | | + +-------+ + + + | PH, WHOLE | 7.38 | | [facility] | | | BLOOD | | | LABORATORY | | | | | | SERVICES, | | | | | | CORE | | + +-------+ + + + | ICA, | 1.18 | 1.14 - 1.28 | [facility] | | | CORRECTED | | mmol/L | LABORATORY | | | TO PH 7.4 | | | SERVICES, | | | | | | CORE | | + +-------+ + + + + + | Specimen | + + | Blood - Blood | | (substance) | + + + + + + + | Performing | Address | City/State/Zipcode | Phone Number | | Organization | | | | + + + + + | [facility] | [address] | [place] [address] | | | [facility] | [address] | | | + + + + + OPERATION RECORD (07/08/2017 8:32 AM PST) + + | Procedure Note | + + | Rosalind Wu MD - 07/07/2017 2:56 PM PST Date of Service: 07/07/2017 | | Attending Surgeon:Rosalind Wu MD Biology Internship(s):Ruth Dicknison MD | | Ricco Salmeron PA-C Preoperative Diagnosis: Primary | | hyperparathyroidism.Postoperative Diagnosis: Primary hyperparathyroidism.Procedure: | | Parathyroidectomy.Operative Findings: Enlarged left superior (paraesophageal) | | parathyroid adenoma measuring approximately 2 cm x 3 mm. This was also noted to be | | enhancing on the CT scan. The other 3 parathyroid glands were identified, which were | | all normal in size, although the right superior was also paraesophageal and measured | | approximately 14 mm x 2 mm.Surgical Procedure: The patient was intubated with a nerve | | monitoring endotracheal tube. Local anesthesia was infiltrated over the anticipated | | incision site as well as along the anterior borders of the sternocleidomastoid muscle. | | An incision was made midway between the cricoid and the sternal notch. Skin flaps were | | elevated. The left side was explored first. The recurrent laryngeal nerve was | | identified after rotating the thyroid lobe medially. Anterior to the nerve, below the | | thyroid lobe was a normal-appearing parathyroid at the tip of the thymic fat remnant. | | Approximately 1/3 of that was biopsied and sent to Surgical Pathology for frozen | | section. Meanwhile, we followed the nerve up superiorly and protected it. Posterior | | and lateral to the nerve was an enlarged superior parathyroid gland which was long and | | tubular and sitting on the spine next to the esophagus. One-half of it was sent to | | Surgical Pathology to confirm it is parathyroid. The rest of it was excised. Attention | | was directed to the right side where the right thyroid lobe was then reflected | | medially. Just posterior to the inferior pole of the thyroid was a parathyroid gland | | that was identified. It was flat and triangular-shaped but normal size. Approximately | | 1/3 of it was biopsied. The rest of it was left in situ on its blood supply. The | | recurrent laryngeal nerve was identified posterior to it. Posterolateral to the | | insertion of the nerve into the cricothyroid muscle, we found the superior parathyroid | | gland which was tubular as well. It measured approximately 14 mm x 2 mm in size. | | One-half of that was biopsied and sent to Surgical Pathology. All of the specimens came | | back parathyroid tissue. Of note, the right inferior one was read as hypercellular, | | however, it was visually the most normal-appearing gland. We had sent an | | intraparathyroid hormone level preoperatively which was 1:41, approximately 7 minutes | | after the left superior parathyroid was completely excised. It came back 30.6. Another | | 5 minutes after that, the level was reported to be 6.85. The remaining 3 parathyroid | | glands were marked with hemoclips adjacent to the parathyroid glands. Hemostasis was | | achieved meticulously after making sure the wound was completely dry. The strap muscles | | were closed. The platysma layer was closed and the incision was closed with | | interrupted subcuticular 4-0 Polysorb sutures and running 4-0 monofilament suture. | | Prior to closure, we injected the wound with local anesthetic along the incision site as | | well as along the anterior sternocleidomastoid muscle for superficial block. The | | patient tolerated the procedure well without any complications. The recurrent laryngeal | | nerves were restimulated prior to closure and they were both intact bilaterally. The | | patient was awakened from anesthesia, extubated, sent to the recovery room in | | satisfactory condition.Complications: None.Estimated Blood Loss: Approximately 20 mL. | | I was physically present for the entire procedure.Rosalind Wu, PANTERA/MODLDD: | | 07/07/2017 14:35:38DT: 07/07/2017 14:56:06Job #: [id number] | |MLS/MODL | | | | | | /[id number] | + + PTH, SERUM (07/08/2017 4:56 AM PST) + +--------+ + + + | Component | Value | Ref Range | Performed | Pathologist | | | | | At | Signature | + +--------+ + + + | PTH, SERUM | 11 (L) | 12 - 77 pg/mL | [facility] | | | | | | LABORATORY | | | | | | SERVICES, | | | | | | CORE | | + +--------+ + + + + + | Specimen | + + | Blood - Blood | | (substance) | + + + + + + + | Performing | Address | City/State/Zipcode | Phone Number | | Organization | | | | + + + + + | [facility] | [address] | [place] [address] | | | SERVICES, CORE | [address] | | | + + + + + LIVER SET (AST,ALT,BILI TOTAL,BILI DIRECT,ALK PHOS,ALB,PROT TOTAL) (07/07/2017 6:02 PM PST ) + +---------+ + + + | Component | Value | Ref Range | Performed | Pathologist | | | | | At | Signature | + +---------+ + + + | ALBUMIN, | 3.5 | 3.5 - 4.7 g/dL | [facility] | | | PLASMA | | | LABORATORY | | | (LAB) | | | SERVICES, | | | | | | CORE | | + +---------+ + + + | BILIRUBIN | 1.3 (H) | 0.3 - 1.2 mg/dL | [facility] | | | TOTAL | | | LABORATORY | | | | | | SERVICES, | | | | | | CORE | | + +---------+ + + + | BILIRUBIN | 0.2 | 0.0 - 0.3 mg/dL | [facility] | | | DIRECT | | | LABORATORY | | | | | | SERVICES, | | | | | | CORE | | + +---------+ + + + | ALK PHOS | 93 | 53 - 141 U/L | [facility] | | | | | | LABORATORY | | | | | | SERVICES, | | | | | | CORE | | + +---------+ + + + | AST(SGOT) | 26 | <=41 U/L | [facility] | | | | | | LABORATORY | | | | | | SERVICES, | | | | | | CORE | | + +---------+ + + + | ALT (SGPT) | 26 | <=60 U/L | [facility] | | | | | | LABORATORY | | | | | | SERVICES, | | | | | | CORE | | + +---------+ + + + | TOTAL | 7.1 | 6.4 - 8.2 g/dL | [facility] | | | PROTEIN, | | | LABORATORY | | | PLASMA | | | SERVICES, | | | (LAB) | | | CORE | | + +---------+ + + + | AST CMNT | No Hemo | | [facility] | | | | | | LABORATORY | | | | | | SERVICES, | | | | | | CORE | | + +---------+ + + + | BILI T CMNT | No Hemo | | [facility] | | | | | | LABORATORY | | | | | | SERVICES, | | | | | | CORE | | + +---------+ + + + | BILI D CMNT | No Hemo | | [facility] | | | | | | LABORATORY | | | | | | SERVICES, | | | | | | CORE | | + +---------+ + + + + + | Specimen | + + | Blood - Blood | | (substance) | + + + + + + + | Performing | Address | City/State/Zipcode | Phone Number | | Organization | | | | + + + + + | [facility] | [address] | [place] [address] | | | SERVICES, CORE | [address] | | | + + + + + BASIC METABOLIC SET (NA, K, CL, TCO2, BUN, CR, GLU, CA) (07/07/2017 6:02 PM PST) + +---------+ + + + | Component | Value | Ref Range | Performed | Pathologist | | | | | At | Signature | + +---------+ + + + | GLUCOSE, | 206 (H) | 70 - 99 mg/dL | [facility] | | | PLASMA | | | LABORATORY | | | (LAB) | | | SERVICES, | | | | | | CORE | | + +---------+ + + + | BUN, PLASMA | 18 | 6 - 20 mg/dL | [facility] | | | (LAB) | | | LABORATORY | | | | | | SERVICES, | | | | | | CORE | | + +---------+ + + + | CREATININE | 0.76 | 0.60 - 1.10 | [facility] | | | PLASMA | | mg/dL | LABORATORY | | | (LAB) | | | SERVICES, | | | | | | CORE | | + +---------+ + + + | EGFR | >60 | >60 mL/min | [facility] | | | - | | | LABORATORY | | | SLOVENIAN | | | SERVICES, | | | | | | CORE | | + +---------+ + + + | EGFR NON | >60 | >60 mL/min | [facility] | | | -[facility] | | | LABORATORY | | | RICAN | | | SERVICES, | | | | | | CORE | | + +---------+ + + + | SODIUM, | 136 | 136 - 145 | [facility] | | | PLASMA | | mmol/L | LABORATORY | | | (LAB) | | | SERVICES, | | | | | | CORE | | + +---------+ + + + | POTASSIUM, | 4.3 | 3.4 - 5.0 | [facility] | | | PLASMA | | mmol/L | LABORATORY | | | (LAB) | | | SERVICES, | | | | | | CORE | | + +---------+ + + + | CHLORIDE, | 102 | 97 - 108 mmol/L | [facility] | | | PLASMA | | | LABORATORY | | | (LAB) | | | SERVICES, | | | | | | CORE | | + +---------+ + + + | TOTAL CO2, | 23 | 21 - 32 mmol/L | [facility] | | | PLASMA | | | LABORATORY | | | (LAB) | | | SERVICES, | | | | | | CORE | | + +---------+ + + + | CALCIUM, | 8.7 | 8.6 - 10.2 | [facility] | | | PLASMA | | mg/dL | LABORATORY | | | (LAB) | | | SERVICES, | | | | | | CORE | | + +---------+ + + + | ANION GAP | 11 | mmol/L | [facility] | | | | | | LABORATORY | | | | | | SERVICES, | | | | | | CORE | | + +---------+ + + + | POTASSIUM | No Hemo | | [facility] | | | CMNT | | | LABORATORY | | | | | | SERVICES, | | | | | | CORE | | + +---------+ + + + + + | Specimen | + + | Blood - Blood | | (substance) | + + + + + | Narrative | Performed At | + + + | Adult glucose reference range change effective 712-17. GFR is | [facility] | | estimated using the MDRD equation recommended by the National Kidney | LABORATORY | | Disease Education Program. Estimated GFR Interpretive Information: | SERVICES, CORE | | <60 mL/min/1.73 sq m Chronic Kidney Disease | | | <15 mL/min/1.73 sq m Kidney Failure Estimated | | | GFR greater that 60 mL/min/1.73 sq m is of limited clinical value. | | | The MDRD equation is not valid in the following situations: - | | | Patients under 18 years of age - Severe malnutrition or obesity - | | | Vegetarian diet - Rapidly changing kidney function | | + + + + + + + + | Performing | Address | City/State/Zipcode | Phone Number | | Organization | | | | + + + + + | [facility] | [address] | [place] [address] | | | JOVANNI INMAN | [address] | | | + + + + + CAPILLARY BLOOD GLUCOSE (NO CHG), POC (07/07/2017 2:33 PM PST) + +---------+ + + + | Component | Value | Ref Range | Performed | Pathologist | | | | | At | Signature | + +---------+ + + + | BLOOD | 138 (H) | 70 - 99 mg/dL | [facility] - | | | GLUCOSE, | | | [facility] | | | POC | | | [facility] | | | | | | OF CARE | | | | | | TESTS | | + +---------+ + + + + + | Specimen | + + | | + + + + + + + | Performing | Address | City/State/Zipcode | Phone Number | | Organization | | | | + + + + + | [facility] | [address] | [place], [place] | | | [facility]CK[facility] C[facility] | [address] | [phone] | | | TESTS | | | | + + + + + PTH - OPERATIVE (07/07/2017 1:15 PM PST) + +-------+ + + + | Component | Value | Ref Range | Performed | Pathologist | | | | | At | Signature | + +-------+ + + + | PTH - | 6.85 | pg/mL | [facility] | | | OPERATIVE | | | REFERENCE | | | | | | LAB | | + +-------+ + + + | TIME - PTH | 13:15 | Hrs:mins | [facility] | | | | | | REFERENCE | | | | | | LAB | | + +-------+ + + + + + | Specimen | + + | Blood - Blood | | (substance) | + + + + + | Narrative | Performed At | + + + | Test performed by: [facility] | [facility] | | [facility] [address], [place] | REFERENCE LAB | | [id number] | | + + + + + + + + | Performing | Address | City/State/Zipcode | Phone Number | | Organization | | | | + + + + + | [facility] | | | | + + + + + | [facility] | see below | | | + + + + + PTH - OPERATIVE (07/07/2017 1:10 PM PST) + +-------+ + + + | Component | Value | Ref Range | Performed | Pathologist | | | | | At | Signature | + +-------+ + + + | PTH - | 30.60 | pg/mL | [facility] | | | OPERATIVE | | | REFERENCE | | | | | | LAB | | + +-------+ + + + | TIME - PTH | 13:10 | Hrs:mins | [facility] | | | | | | REFERENCE | | | | | | LAB | | + +-------+ + + + + + | Specimen | + + | Blood - Blood | | (substance) | + + + + + | Narrative | Performed At | + + + | Test performed by: [facility] | [facility] | | [facility] [address], [place] | REFERENCE LAB | | [id number] | | + + + + + + + + | Performing | Address | City/State/Zipcode | Phone Number | | Organization | | | | + + + + + | [facility] | | | | + + + + + | [facility] | see below | | | + + + + + LIVER SET (AST,ALT,BILI TOTAL,BILI DIRECT,ALK PHOS,ALB,PROT TOTAL) (07/07/2017 11:50 AM PST ) + +---------+ + + + | Component | Value | Ref Range | Performed | Pathologist | | | | | At | Signature | + +---------+ + + + | ALBUMIN, | 4.0 | 3.5 - 4.7 g/dL | [facility] | | | PLASMA | | | LABORATORY | | | (LAB) | | | SERVICES, | | | | | | CORE | | + +---------+ + + + | BILIRUBIN | 1.5 (H) | 0.3 - 1.2 mg/dL | [facility] | | | TOTAL | | | LABORATORY | | | | | | SERVICES, | | | | | | CORE | | + +---------+ + + + | BILIRUBIN | 0.3 | 0.0 - 0.3 mg/dL | [facility] | | | DIRECT | | | LABORATORY | | | | | | SERVICES, | | | | | | CORE | | + +---------+ + + + | ALK PHOS | 100 | 53 - 141 U/L | [facility] | | | | | | LABORATORY | | | | | | SERVICES, | | | | | | CORE | | + +---------+ + + + | AST(SGOT) | 30 | <=41 U/L | [facility] | | | | | | LABORATORY | | | | | | SERVICES, | | | | | | CORE | | + +---------+ + + + | ALT (SGPT) | 26 | <=60 U/L | [facility] | | | | | | LABORATORY | | | | | | SERVICES, | | | | | | CORE | | + +---------+ + + + | TOTAL | 7.3 | 6.4 - 8.2 g/dL | [facility] | | | PROTEIN, | | | LABORATORY | | | PLASMA | | | SERVICES, | | | (LAB) | | | CORE | | + +---------+ + + + | AST CMNT | No Hemo | | [facility] | | | | | | LABORATORY | | | | | | SERVICES, | | | | | | CORE | | + +---------+ + + + | BILI T CMNT | No Hemo | | [facility] | | | | | | LABORATORY | | | | | | SERVICES, | | | | | | CORE | | + +---------+ + + + | BILI D CMNT | No Hemo | | [facility] | | | | | | LABORATORY | | | | | | SERVICES, | | | | | | CORE | | + +---------+ + + + + + | Specimen | + + | Blood - Blood | | (substance) | + + + + + + + | Performing | Address | City/State/Zipcode | Phone Number | | Organization | | | | + + + + + | [facility] | [address] | [place] [address] | | | SERVICES, CORE | [address] | | | + + + + + BASIC METABOLIC SET (NA, K, CL, TCO2, BUN, CR, GLU, CA) (07/07/2017 11:50 AM PST) + +---------+ + + + | Component | Value | Ref Range | Performed | Pathologist | | | | | At | Signature | + +---------+ + + + | GLUCOSE, | 86 | 70 - 99 mg/dL | [facility] | | | PLASMA | | | LABORATORY | | | (LAB) | | | SERVICES, | | | | | | CORE | | + +---------+ + + + | BUN, PLASMA | 19 | 6 - 20 mg/dL | [facility] | | | (LAB) | | | LABORATORY | | | | | | SERVICES, | | | | | | CORE | | + +---------+ + + + | CREATININE | 0.88 | 0.60 - 1.10 | [facility] | | | PLASMA | | mg/dL | LABORATORY | | | (LAB) | | | SERVICES, | | | | | | CORE | | + +---------+ + + + | EGFR | >60 | >60 mL/min | [facility] | | | - | | | LABORATORY | | | SLOVENIAN | | | SERVICES, | | | | | | CORE | | + +---------+ + + + | EGFR NON | >60 | >60 mL/min | [facility] | | | -[facility] | | | LABORATORY | | | RICAN | | | SERVICES, | | | | | | CORE | | + +---------+ + + + | SODIUM, | 137 | 136 - 145 | [facility] | | | PLASMA | | mmol/L | LABORATORY | | | (LAB) | | | SERVICES, | | | | | | CORE | | + +---------+ + + + | POTASSIUM, | 4.9 | 3.4 - 5.0 | [facility] | | | PLASMA | | mmol/L | LABORATORY | | | (LAB) | | | SERVICES, | | | | | | CORE | | + +---------+ + + + | CHLORIDE, | 103 | 97 - 108 mmol/L | [facility] | | | PLASMA | | | LABORATORY | | | (LAB) | | | SERVICES, | | | | | | CORE | | + +---------+ + + + | TOTAL CO2, | 26 | 21 - 32 mmol/L | [facility] | | | PLASMA | | | LABORATORY | | | (LAB) | | | SERVICES, | | | | | | CORE | | + +---------+ + + + | CALCIUM, | 9.6 | 8.6 - 10.2 | [facility] | | | PLASMA | | mg/dL | LABORATORY | | | (LAB) | | | SERVICES, | | | | | | CORE | | + +---------+ + + + | ANION GAP | 8 | mmol/L | [facility] | | | | | | LABORATORY | | | | | | SERVICES, | | | | | | CORE | | + +---------+ + + + | POTASSIUM | No Hemo | | [facility] | | | CMNT | | | LABORATORY | | | | | | SERVICES, | | | | | | CORE | | + +---------+ + + + + + | Specimen | + + | Blood - Blood | | (substance) | + + + + + | Narrative | Performed At | + + + | Adult glucose reference range change effective 7-12-17. GFR is | [facility] | | estimated using the MDRD equation recommended by the National Kidney | LABORATORY | | Disease Education Program. Estimated GFR Interpretive Information: | SERVICES, CORE | | <60 mL/min/1.73 sq m Chronic Kidney Disease | | | <15 mL/min/1.73 sq m Kidney Failure Estimated | | | GFR greater that 60 mL/min/1.73 sq m is of limited clinical value. | | | The MDRD equation is not valid in the following situations: - | | | Patients under 18 years of age - Severe malnutrition or obesity - | | | Vegetarian diet - Rapidly changing kidney function | | + + + + + + + + | Performing | Address | City/State/Zipcode | Phone Number | | Organization | | | | + + + + + | [facility] | [address] | [place] [address] | | | SERVICES, CORE | [address] | | | + + + + + PTH - OPERATIVE (07/07/2017 11:18 AM PST) + +--------+ + + + | Component | Value | Ref Range | Performed | Pathologist | | | | | At | Signature | + +--------+ + + + | PTH - | 141.00 | pg/mL | [facility] | | | OPERATIVE | | | REFERENCE | | | | | | LAB | | + +--------+ + + + | TIME - PTH | 11:18 | Hrs:mins | [facility] | | | | | | REFERENCE | | | | | | LAB | | + +--------+ + + + + + | Specimen | + + | Blood - Blood | | (substance) | + + + + + | Narrative | Performed At | + + + | | [facility] | | Test performed by: | REFERENCE LAB | | [facility] | | | [address] | | | [place], [place] [address] | | + + + + + + + + | Performing | Address | City/State/Zipcode | Phone Number | | Organization | | | | + + + + + | [facility] | | | | + + + + + | [facility] | see below | | | + + + + + SURGICAL PATHOLOGY (07/07/2017) + + + + + + | Component | Value | Ref Range | Performed | Pathologist | | | | | At | Signature | + + + + + + | SURGICAL | SOURCE OF SPECIMEN:A 1/4 | | [facility] | | | PATHOLOGY | of possible left | | DEPARTMENT | | | | inferior parathyroid | | OF | | | | FSSOURCE OF SPECIMEN:B | | PATHOLOGY | | | | 1/4 of left superior | | | | | | parathyroid FSSOURCE OF | | | | | | SPECIMEN:C 1/3 of right | | | | | | superior parathyroid | | | | | | FSSOURCE OF SPECIMEN:D | | | | | | 1/3 of right inferior | | | | | | parathyroid FSSOURCE OF | | | | | | SPECIMEN:E Remainder of | | | | | | left superior | | | | | | parathyroid Final | | | | | | Pathologic Diagnosis:A: | | | | | | One fourth of possible | | | | | | left inferior | | | | | | parathyroid, biopsy: | | | | | | - Normocellular | | | | | | parathyroid (40% | | | | | | cellularity, 0.01 g). | | | | | | B: One fourth of | | | | | | left superior | | | | | | parathyroid, biopsy: | | | | | | - Normocellular | | | | | | parathyroid (60% | | | | | | cellularity, 0.02 g). | | | | | | C: One third of | | | | | | right superior | | | | | | parathyroid, biopsy: | | | | | | - Normocellular | | | | | | parathyroid (40% | | | | | | cellularity, 0.02 g). | | | | | | D: One third of | | | | | | right inferior | | | | | | parathyroid, biopsy: | | | | | | - Hypercellular | | | | | | parathyroid (80% | | | | | | cellularity, 0.05 g) | | | | | | E: Remainder of left | | | | | | superior parathyroid, | | | | | | biopsy: - Enlarged | | | | | | slightly hypercellular | | | | | | parathyroid (70% | | | | | | cellularity, 0.15g) | | | | | | Case reviewed by:Renetta | | | | | | Dany Kim, Ph.D./ | | | | | | Surgical Pathology | | | | | | FellowMicjoshua Ny, | | | | | | M.DCullen/ Pathologist | | | | | | | | | | | | Intraoperative | | | | | | consultation (frozen | | | | | | section) diagnosis: | | | | | | A: One fourth of | | | | | | possible left inferior | | | | | | parathyroid | | | | | | | | | | | | | | | | | | Normocellularparathyroid | | | | | | B: One fourth of | | | | | | left superior | | | | | | parathyroid | | | | | | | | | | | | Normocellular | | | | | | parathyroid Frozen | | | | | | section diagnoses | | | | | | confirmed by Floyd | | | | | | Nasreen, | | | | | | M.Xin.,Ph.D./Pathologist | | | | | | and Analy Odom, | | | | | | M.D./Pathology Resident | | | | | | C: One third of | | | | | | right superior | | | | | | parathyroid | | | | | | | | | | | | Parathyroid tissue | | | | | | present D: One | | | | | | third of right inferior | | | | | | parathyroid | | | | | | | | | | | | Hypercellular | | | | | | parathyroidtissue | | | | | | Frozen section diagnoses | | | | | | confirmed by Zachary Hassan | | | | | | | | | | | | Dany Ny/Hematopathol | | | | | | ogist and Analy | | | | | | Dany Odom/Pathology | | | | | | Resident Clinical | | | | | | History:Primary | | | | | | hyperparathyroidism. | | | | | | Gross | | | | | | Description:Received are | | | | | | 5 specimens fresh | | | | | | labeled with the | | | | | | patient's medical | | | | | | record#[id number]. | | | | | | A: One fourth of | | | | | | possible left inferior | | | | | | parathyroid | | | | | | | | | | | | received is a 0.01 | | | | | | g,0.2 x 0.1 x 0.1 cm | | | | | | soft stanley-pink tissue. | | | | | | The entire specimen is | | | | | | submittedfor frozen | | | | | | section diagnosis, and | | | | | | is resubmitted in | | | | | | cassette A1. B: | | | | | | One fourth of left | | | | | | superior parathyroid | | | | | | | | | | | | received is a 0.02 g, | | | | | | 0.3 x0.2 x 0.2 cm soft | | | | | | stanley-pink tissue. The | | | | | | entire specimen is | | | | | | submitted forfrozen | | | | | | section diagnosis, and | | | | | | is resubmitted in | | | | | | cassette B1. C: | | | | | | One third of right | | | | | | superior parathyroid | | | | | | | | | | | | received is a 0.02 g, | | | | | | 0.5 x0.3 x 0.2 cm soft | | | | | | stanley-pink tissue. The | | | | | | entire specimen is | | | | | | submitted forfrozen | | | | | | action diagnosis and is | | | | | | resubmitted in cassette | | | | | | C1. D: One third | | | | | | of right inferior | | | | | | parathyroid | | | | | | | | | | | | received is a 0.05 g, | | | | | | 1.0 x0.4 x 0.2 cm soft | | | | | | stanley-pink tissue. The | | | | | | entire specimen is | | | | | | submitted forfrozen | | | | | | section diagnosis and is | | | | | | resubmitted in cassette | | | | | | D1. E: Remainder | | | | | | of left superior | | | | | | parathyroid | | | | | | | | | | | | received is a 0.15 g, | | | | | | 0.6 x 0.5x 0.3 cm ovoid | | | | | | red-stanley nodule, entirely | | | | | | submitted in cassette | | | | | | E1. (KAVYAK) My | | | | | | electronic signature | | | | | | indicates that I have | | | | | | personally reviewed | | | | | | alldiagnostic slides, | | | | | | the gross and/or | | | | | | microscopic portion of | | | | | | thisreport and | | | | | | formulated the final | | | | | | diagnosis. | | | | | | Electronically signed | | | | | | by: Zachary Ny | | | | | | M.EfraínHematopathologistDat | | | | | | e Completed: 07/09/2017 | | | | | | 4:08PM | | | | + + + + + + + + | Specimen | + + | | + + + + + | Narrative | Performed At | + + + | | | + + + + + + + + | Performing | Address | City/State/Zipcode | Phone Number | | Organization | | | | + + + + + | [facility] | [address] | [place] [address] | | | PATHOLOGY | [address] | | | + + + + + documented in this encounter Visit Diagnoses + + | Diagnosis | + + | Primary hyperparathyroidism (HCC) - Primary Primary hyperparathyroidism | + + documented in this encounter Administered Medications + +--------+ +--------+------+------+ | Medication Order | MAR | Action | Dose | Rate | Site | | | Action | Date | | | | + +--------+ +--------+------+------+ | acetaminophen (TYLENOL) tablet | Given | 07/08/20 | 650 mg | | | | 650 mg 650 mg, oral, EVERY 4 | | 17 10:50 | | | | | HOURS, First dose on Thu07/07/17 | | AM PST | | | | | at 1745, Until Discontinued | | | | | | + +--------+ +--------+------+------+ +-------+ +--------+---+---+ | Given | 07/08/20 | 650 mg | | | | | 17 6:40 | | | | | | AM PST | | | | +-------+ +--------+---+---+ | Given | 07/08/20 | 650 mg | | | | | 17 2:41 | | | | | | AM PST | | | | +-------+ +--------+---+---+ + +---+ | | | + +---+ | calcium carbonate chewable | | | (TUMS) tablet 300 mg elemental | | | 300 mg elemental (750 mg total | | | salt), oral, TWICE DAILY, First | | | dose on Thu07/08/17 at 1415, | | | Until Discontinued | | + +---+ | | | + +---+ + +-------+ + +---+---+ | calcium carbonate chewable | Given | 07/08/20 | 600 mg | | | | (TUMS) tablet 600 mg elemental | | 17 8:51 | elementa | | | | 600 mg elemental (1,500 mg total | | AM PST | l | | | | salt), oral, TWICE DAILY, First | | | | | | | dose on Thu07/07/17 at 2100, | | | | | | | Until Discontinued | | | | | | + +-------+ + +---+---+ +-------+ + +---+---+ | Given | 07/07/20 | 600 mg | | | | | 17 9:50 | elementa | | | | | PM PST | l | | | +-------+ + +---+---+ +---+---+ | | | +---+---+ + +-------+ +--------+---+---+ | cholecalciferol (Vitamin D3) | Given | 07/08/20 | 2,000 | | | | (VITAMIN D-3) tablet 2,000 Units | | 17 8:51 | Units | | | | 2,000 Units, oral, DAILY, First | | AM PST | | | | | dose on Thu07/07/17 at 1745, | | | | | | | Until Discontinued | | | | | | + +-------+ +--------+---+---+ +-------+ +--------+---+---+ | Given | 07/07/20 | 2,000 | | | | | 17 6:19 | Units | | | | | PM PST | | | | +-------+ +--------+---+---+ +---+---+ | | | +---+---+ + + + +---+---+---+ | lactated Ringers IV 10 mL/hr, | given by | 07/07/20 | | | | | intravenous, PROCEDURE | | 17 2:04 | | | | | CONTINUOUS, Starting 07/07/17 | anesthes | PM PST | | | | | at 0900, Until 07/07/17 at | iology | | | | | | 1732 | | | | | | + + + +---+---+---+ +---------+ + + +---+ | New Bag | 07/07/20 | | | | | | 17 10:49 | | | | | | AM PST | | | | +---------+ + + +---+ | New Bag | 07/07/20 | 10 mL/hr | 10 mL/hr | | | | 17 9:27 | | | | | | AM PST | | | | +---------+ + + +---+ +---+---+ | | | +---+---+ + + + +---------+---+ + | scopolamine (TRANSDERM-SCOP) 1 | Applied | 07/07/20 | 1 patch | | Left | | mg over 3 days 1 patch 1 patch, | Patch | 17 9:36 | | | Post | | transdermal, ONCE, 1 dose, Tue | | AM PST | | | Auricula | | 07/07/17 at 0945 | | | | | r | + + + +---------+---+ + +---+---+ | | | +---+---+ + +-------+ + +---+---+ | senna-docusate (SENOKOT S) | Given | 07/08/20 | 1 tablet | | | | 8.6-50 mg 1 tablet 1 tablet, | | 17 8:51 | | | | | oral, TWICE DAILY, First dose on | | AM PST | | | | | 07/07/17 at 2100, Until | | | | | | | Discontinued | | | | | | + +-------+ + +---+---+ +-------+ + +---+---+ | Given | 07/07/20 | 1 tablet | | | | | 17 9:50 | | | | | | PM PST | | | | +-------+ + +---+---+ +---+---+ | | | +---+---+ documented in this encounter
--- OUTSIDE RECORDS SUMMARY | ~2020-05-21 | XMS | Encounter Summary ---
Demographics + + + | Address | [address] | | | [place] [address] | + + + | Home Phone | | + + + | Preferred Language | Unknown | + + + | Marital Status | Single | + + + | Congregation Affiliation | 1041 | + + + [...] | + + +---------+ + | Isabel Arabella | ECON | Unknown | | + + +---------+ + | Facundo Springer | ECON | Unknown | | + + +---------+ + Care Team Providers + +------+ + | Care Transit Clerk Name | Role | Phone | + +------+ + | Mick Malik MD | PCP | | + +------+ + Encounter Details +--------+ + + + + | Date | Type | Department | Care Team | Description | +--------+ + + + + | 03/31/ | Orders Only | [facility] | Juan Dong | | | 2017 | | [address] | [address] | | | | | [address] | [place] [address] | | | | | [place] | [place] | | | | | [phone] | [address] | | | | | [phone] | [phone] | | | | | | | [...] + +--------+ + + + | ECHO INTERPRETATION | Routin | 03/31/2017 | | Results for this | | OF OUTSIDE FILMS | e | 11:06 AM | | procedure are in the | | | | PDT | | results section. | + +--------+ + + + documented in this encounter Results ECHO Interpretation of Outside Films (03/31/2017 11:06 AM PDT) + + | Specimen | + + | | + + + + + | Impressions | Performed At | + + + | 1. Overall left ventricular systolic function is normal with, an EF | | | between 60 - 65 %. 2. The right ventricle is normal in size and | | | function. 3. No significant valvular abnormality. 4. There are no | | | significant changes noted in comparison to the previous | | | echocardiographic study, done 01/01/15. | | + + + + + + | Narrative | Performed At | + + + | Patient Name: JOSELYN LEUNG Date of : 1945 | | | Performing Physician: RYAN KAPADIA MD | | | | | | INDICATIONS Abnormal EKG CONCLUSIONS | | | 1. Overall left ventricular systolic function is normal with, an EF | | | between 60 - 65 %. 2. The right ventricle is normal in size and | | | function. 3. No significant valvular abnormality. 4. There are no | | | significant changes noted in comparison to the previous | | | echocardiographic study, done 01/01/15. FINDINGS -------- ECG | | | rhythm: Sinus rhythm. Study: A 2-dimensional transthoracic | | | echocardiogram with m-mode, spectral and color flow Doppler was | | | perfomed at [facility]. Study: This was a technically | | | adequate study. Left Ventricle: Overall left ventricular systolic | | | function is normal with, an EF between 60 - 65 %. The EF was | | | recorded at 50-55% on the previous study. Left Ventricle: The left | | | ventricle cavity size is normal. Left Ventricle: Left ventricular | | | wall thickness is normal. Left Ventricle: Sigmoid shaped septum with | | | focal hypertrophy of the basal septum. The remaining wall thickness is | | | normal. Left Ventricle: The diastolic filling pattern indicates | | | impaired relaxation consistent with mild dysfunction (Grade I), which | | | is normal for the patient's age. Right Ventricle: The right ventricle | | | is normal in size and function. Left Atrium: The left atrium is | | | normal in size. Right Atrium: The right atrium is normal in size. | | | Aortic Valve: Aortic valve is trileaflet and is mildly thickened. | | | Aortic Valve: There is no evidence of aortic regurgitation. Aortic | | | Valve: Tech failed to record LVOT and AV waveforms however, there is | | | no evidence of aortic stenosis on 2-D images. Mitral Valve: Normal | | | appearing mitral valve. Mitral Valve: There is trace-mild mitral | | | regurgitation. Tricuspid Valve: The tricuspid valve appears | | | structurally normal. Tricuspid Valve: Mild tricuspid regurgitation | | | present. Tricuspid Valve: There is no evidence of pulmonary | | | hypertension. Tricuspid Valve: The right ventricular systolic | | | pressure (pulmonary artery systolic pressure), as measured by Doppler, | | | is 20.34mmHg. Pulmonic Valve: Pulmonic valve appears structurally | | | normal. Pulmonic Valve: Trace pulmonic regurgitation. Pericardium: | | | There is no pericardial effusion. IVC/Hepatic Veins: The IVC is | | | normal size (1.5-2.5cm) and collapses >50% with sniff, consistent with | | | central venous pressures of 5-10mmHg. Aorta: The aortic root, | | | ascending aorta and aortic arch are normal. Pulmonary Artery: The | | | pulmonary artery is normal. Mass: No mass visualized Thrombus: No | | | clot visualized Thrombus: No vegetation visualized. Septum: No ASD | | | observed. MEASUREMENTS Ao asc: 2.75 cm IVC: | | | 1.93 cm LA Major: 3.25 cm EDV(Teich): 69.95 ml IVSd: 1.00 | | | cm LVIDd: 3.99 cm LVPWd: 0.97 cm LVOT Area: 2.75 cm2 | | | LVOT Diam: 1.87 cm %FS: 40.50 % EF(Teich): 71.80 % | | | ESV(Teich): 19.72 ml LVIDs: 2.37 cm SV(Teich): 50.22 ml RA | | | Major: 4.50 cm RVIDd: 2.13 cm LVEF MOD A2C: 48.18 % SV | | | MOD A2C: 23.42 ml LVEF MOD A4C: 57.75 % SV MOD A4C: 38.99 | | | ml EF Biplane: 54.19 % LVEDV MOD BP: 59.34 ml LVESV MOD BP: | | | 27.18 ml LVEDV MOD A2C: 48.61 ml LVLd A2C: 6.17 cm LVEDV | | | MOD A4C: 67.52 ml LVLd A4C: 6.65 cm LVESV MOD A2C: 25.18 ml | | | LVLs A2C: 5.85 cm LVESV MOD A4C: 28.53 ml LVLs A4C: 5.66 | | | cm LAESV(A-L): 32.51 ml LAESV Index (A-L): 20.07 ml/m2 LAAs | | | A2C: 14.10 cm2 LAESV A-L A2C: 36.60 ml LALs A2C: 4.61 cm | | | LAAs A4C: 8.79 cm2 LAESV A-L A4C: 20.28 ml LALs A4C: 3.23 | | | cm Ao Diam: 3.06 cm LA Diam: 3.39 cm LA/Ao: 1.10 MV A | | | Bobby: 0.85 m/s MV DecT: 246.46 ms MV E Bobby: 0.86 m/s MV E/A | | | Ratio: 1.00 MV PHT: 71.47 ms MVA By PHT: 3.07 cm2 Septal | | | e': 0.07 m/s Septal E/e': 12.12 Lateral e': 0.08 m/s | | | Lateral E/e': 10.60 PV maxP.55 mmHg PV Vmax: 0.79 m/s | | | RAP: 5 mmHg RVSP: 20.33 mmHg TR maxP.33 mmHg TR Vmax: | | | 1.95 m/s Infant Teacher: WILLIS Authenticated by: RYAN KAPADAI MD | | | Report Date/Time: 03-31-2017 18:38:30 | | + + + + + | Procedure Note | + + | Flavio, Bertrand Conversion - 04/21/2019 7:43 PM PDT Patient Name: Georgia LEUNG of | | : 1945 Performing Physician: RYAN KAPADIA, | | INDICATIONS A | | bnormal EKG CONCLUSIONS 1. Overall left ventricular systolic function is | | normal with, an EF between 60 - 65 %.2. The right ventricle is normal in size and | | function. 3. No significant valvular abnormality. 4. There are no significant changes | | noted in comparison to the previous echocardiographic study, done 01/01/15. | | FINDINGS--------ECG rhythm: Sinus rhythm.Study: A 2-dimensional transthoracic | | echocardiogram with m-mode, spectral and color flow Doppler was perfomed at [facility].Study: This was a technically adequate study.Left Ventricle: Overall left | | ventricular systolic function is normal with, an EF between 60 - 65 %. The EF was | | recorded at 50-55% on the previous study.Left Ventricle: The left ventricle cavity size | | is normal.Left Ventricle: Left ventricular wall thickness is normal.Left Ventricle: | | Sigmoid shaped septum with focal hypertrophy of the basal septum. The remaining wall | | thickness is normal.Left Ventricle: The diastolic filling pattern indicates impaired | | relaxation consistent with mild dysfunction (Grade I), which is normal for the patient's | | age.Right Ventricle: The right ventricle is normal in size and function.Left Atrium: | | The left atrium is normal in size.Right Atrium: The right atrium is normal in | | size.Aortic Valve: Aortic valve is trileaflet and is mildly thickened.Aortic Valve: | | There is no evidence of aortic regurgitation.Aortic Valve: Tech failed to record LVOT | | and AV waveforms however, there is no evidence of aortic stenosis on 2-D images.Mitral | | Valve: Normal appearing mitral valve.Mitral Valve: There is trace-mild mitral | | regurgitation.Tricuspid Valve: The tricuspid valve appears structurally normal.Tricuspid | | Valve: Mild tricuspid regurgitation present.Tricuspid Valve: There is no evidence of | | pulmonary hypertension.Tricuspid Valve: The right ventricular systolic pressure | | (pulmonary artery systolic pressure), as measured by Doppler, is 20.34mmHg.Pulmonic | | Valve: Pulmonic valve appears structurally normal.Pulmonic Valve: Trace pulmonic | | regurgitation.Pericardium: There is no pericardial effusion.IVC/Hepatic Veins: The IVC | | is normal size (1.5-2.5cm) and collapses >50% with sniff, consistent with central venous | | pressures of 5-10mmHg.Aorta: The aortic root, ascending aorta and aortic arch are | | normal.Pulmonary Artery: The pulmonary artery is normal.Mass: No mass | | visualizedThrombus: No clot visualizedThrombus: No vegetation visualized.Septum: No ASD | | observed. MEASUREMENTS Ao asc: 2.75 cmIVC: 1.93 cmLA Major: 3.25 | | cmEDV(Teich): 69.95 mlIVSd: 1.00 cmLVIDd: 3.99 cmLVPWd: 0.97 cmLVOT Area: 2.75 | | [id number] Diam: 1.87 cm%FS: 40.50 %EF(Teich): 71.80 %ESV(Teich): 19.72 mlLVIDs: | | 2.37 cmSV(Teich): 50.22 mlRA Major: 4.50 cmRVIDd: 2.13 cmLVEF MOD A2C: 48.18 | | %SV MOD A2C: 23.42 mlLVEF MOD A4C: 57.75 %SV MOD A4C: 38.99 mlEF Biplane: 54.19 | | %LVEDV MOD BP: 59.34 mlLVESV MOD BP: 27.18 mlLVEDV MOD A2C: 48.61 mlLVLd A2C: | | 6.17 cmLVEDV MOD A4C: 67.52 mlLVLd A4C: 6.65 cmLVESV MOD A2C: 25.18 mlLVLs A2C: | | 5.85 cmLVESV MOD A4C: 28.53 mlLVLs A4C: 5.66 cmLAESV(A-L): 32.51 mlLAESV Index | | (A-L): 20.07 ml/m2LAAs A2C: 14.10 [id number] A-L A2C: 36.60 mlLALs A2C: 4.61 | | cmLAAs A4C: 8.79 [id number] A-L A4C: 20.28 mlLALs A4C: 3.23 cmAo Diam: 3.06 cmLA | | Diam: 3.39 cmLA/Ao: 1.10MV A Bobby: 0.85 m/sMV DecT: 246.46 msMV E Bobby: 0.86 | | m/sMV E/A Ratio: 1.00MV PHT: 71.47 msMVA By PHT: 3.07 [id number] e': 0.07 | | m/sSeptal E/e': 12.12Lateral e': 0.08 m/sLateral E/e': 10.60PV maxP.55 | | mmHgPV Vmax: 0.79 m/sRAP: 5 mmHgRVSP: 20.33 mmHgTR maxP.33 mmHgTR Vmax: | | 1.95 m/s Infant Teacher: LETYuthenticated by: Lj ANDERSON Date/Time: 03-31-2017 | | 18:38:30 IMPRESSION: 1. Overall left ventricular systolic function is normal with, an EF | | between 60 - 65 %.2. The right ventricle is normal in size and function. 3. No | | significant valvular abnormality. 4. There are no significant changes noted in | | comparison to the previous echocardiographic study, done 01/01/15. | | | |Ao asc: 2.75 cm | |IVC: 1.93 cm | |LA Major: 3.25 cm | |EDV(Teich): 69.95 ml | |IVSd: 1.00 cm | |LVIDd: 3.99 cm | |LVPWd: 0.97 cm | |LVOT Area: 2.75 cm2 | |LVOT Diam: 1.87 cm | |%FS: 40.50 % | |EF(Teich): 71.80 % | |ESV(Teich): 19.72 ml | |LVIDs: 2.37 cm | |SV(Teich): 50.22 ml | |RA Major: 4.50 cm | |RVIDd: 2.13 cm | |LVEF MOD A2C: 48.18 % | |SV MOD A2C: 23.42 ml | |LVEF MOD A4C: 57.75 % | |SV MOD A4C: 38.99 ml | |EF Biplane: 54.19 % | |LVEDV MOD BP: 59.34 ml | |LVESV MOD BP: 27.18 ml | |LVEDV MOD A2C: 48.61 ml | |LVLd A2C: 6.17 cm | |LVEDV MOD A4C: 67.52 ml | |LVLd A4C: 6.65 cm | |LVESV MOD A2C: 25.18 ml | |LVLs A2C: 5.85 cm | |LVESV MOD A4C: 28.53 ml | |LVLs A4C: 5.66 cm | |LAESV(A-L): 32.51 ml | |LAESV Index (A-L): 20.07 ml/m2 | |LAAs A2C: 14.10 cm2 | |LAESV A-L A2C: 36.60 ml | |LALs A2C: 4.61 cm | |LAAs A4C: 8.79 cm2 | |LAESV A-L A4C: 20.28 ml | |LALs A4C: 3.23 cm | |Ao Diam: 3.06 cm | |LA Diam: 3.39 cm | |LA/Ao: 1.10 | |MV A Bobby: 0.85 m/s | |MV DecT: 246.46 ms | |MV E Bobby: 0.86 m/s | |MV E/A Ratio: 1.00 | |MV PHT: 71.47 ms | |MVA By PHT: 3.07 cm2 | |Septal e': 0.07 m/s | |Septal E/e': 12.12 | |Lateral e': 0.08 m/s | |Lateral E/e': 10.60 | |PV maxP.55 mmHg | |PV Vmax: 0.79 m/s | |RAP: 5 mmHg | |RVSP: 20.33 mmHg | |TR maxP.33 mmHg | |TR Vmax: 1.95 m/s | | | |Infant Teacher: | |Authenticated by: RYAN KAPADIA MD | |Report Date/Time: 03-31-2017 18:38:30 | | | |IMPRESSION: | |1. Overall left ventricular systolic function is normal with, an EF between 60 - 65 %. | |2. The right ventricle is normal in size and function. 3. No significant valvular abnormali ty. 4. There are no significant changes noted in comparison to the previous echocardiographi c study, done 01/01/15. | + + documented in this encounter Visit Diagnoses Not on filedocumented in this encounter"
--- OUTSIDE RECORDS SUMMARY | ~2020-05-21 | XMS | Encounter Summary ---
Demographics + + + | Address | [address] | | | [place] [address] | + + + | Home Phone | | + + + | Preferred Language | Unknown | + + + | Marital Status | Single | + + + | Temple Affiliation | 1041 | + + + | Race | White | + + + | Ethnic Group | Not or | + + + Author + + + | Author | [facility] | | | and [place] | + + + | Organization | [facility] | | | [...] Team Providers + +------+ + | Care Bisque Kiln Placer Name | Role | Phone | + +------+ + | Mick Malik MD | PCP | | + +------+ + Encounter Details +--------+ + + + + | Date | Type | Department | Care Team | Description | +--------+ + + + + | 03/28/ | Orders Only | [facility] | Provider, | | | 2019 | | SYSTEM GENERIC OP | [address] | | | | | [address] | [place]. | | | | | [address] [place], [place] | [place] [address] | | | | | [address] | | | | | | [phone] | | | +--------+ + + + + Social History + +-------+ +--------+------+ | Tobacco Use | Types | Packs/Day | Years | Date | | | | | Used | | + +-------+ +--------+------+ | Former Smoker | | | | | + +-------+ +--------+------+ + + | Comments: Cigars in college | + + + + + | Sex Assigned at | Date Recorded | | | | + + + | Not on file | | + + + documented as of this encounter Plan of Treatment Not on filedocumented as of this encounter Visit Diagnoses Not on filedocumented in this encounter"
--- OUTSIDE RECORDS SUMMARY | ~2020-05-21 | XMS | Encounter Summary ---
Demographics + + + | Address | [address] | | | [place] [address] | + + + | Home Phone | | + + + | Preferred Language | Unknown | + + + | Marital Status | Single | + + + | Sikhism Affiliation | 1041 | + + + | Race | White | + + + | Ethnic Group | Not or | + + + Author + + + | Author | [facility] | | | and [place] | + + + | Organization | [facility] | | | and [...] Team Providers + +------+ + | Care Linux Architect Name | Role | Phone | + +------+ + PCP | Unavailable | + +------+ + Encounter Details +--------+ + + + + | Date | Type | Department | Care Team | Description | +--------+ + + + + | 05/14/ | Abstract | [place] [facility] | DATA MIGRATION ANDRE | | | 2011 | | Conversion Location | SR | | | | | [address] [facility] | | | | | | [place], [place] | | | | | | [address] | | | | | | [phone] | | | +--------+ + + + [...] | Blood Pressure | 118/76 | 11/26/2011 12:00 AM | | | | | PDT | | + + + + + | Pulse | - | - | | + + + + + | Temperature | - | - | | + + + + + | Respiratory Rate | - | - | | + + + + + | Oxygen Saturation | - | - | | + + + + + | Inhaled Oxygen | - | - | | | Concentration | | | | + + + + + | Weight | 53.1 kg (117 lb) | 11/26/2011 12:00 AM | | | | | PDT | | + + + + + | Height | 167.6 cm (5' 6") | 10/09/2011 12:00 AM | | | | | PST | | + + + + + | Body Mass Index | 18.88 | 10/09/2011 12:00 AM | | | | | PST | | + + + + + documented in this encounter Plan of Treatment Not on filedocumented as of this encounter Procedures + +--------+ + + + | Procedure Name | Priori | Date/Time | Associated Diagnosis | Comments | | | ty | | | | + +--------+ + + + | ENDOSCOPY, COLON, | Routin | 05/01/2011 | | Results for this | | DIAGNOSTIC | e | 12:00 AM | | procedure are in the | | | | PDT | | results section. | + +--------+ + + + documented in this encounter Results ENDOSCOPY, COLON, DIAGNOSTIC (05/01/2011 12:00 AM PDT) + + | Specimen | + + | | + + + + + | Narrative | Performed At | + + + | | | + + + documented in this encounter Visit Diagnoses Not on filedocumented in this encounter
--- OUTSIDE RECORDS SUMMARY | ~2020-05-21 | XMS | Encounter Summary ---
Demographics + + + | Address | [address] | | | [place] [address] | + + + | Home Phone [...] Author + + + | Author | [facility] | | | and [place] | + + + | Organization | [facility] | | | and [...] Team Providers + +------+ + | Care Labor Relations Supervisor Name | Role | Phone | + +------+ + | Mick Malik MD | PCP | | + +------+ + Encounter Details +--------+ + + + + | Date | Type | Department | Care Team | Description | +--------+ + + + + | 01/10/ | Abstract | [facility] | Provider, | | | 2019 | | PHYSIATRY [address] | [address] | | | | | [address] | [address] | | | | | [place] | [place] [address] | | | | | [address] | | | | | | [phone] | | | +--------+ + + + + Social History + +--------+ +--------+------+ | Tobacco Use | Types | Packs/Day | Years | Date | | | | | Used | | + +--------+ +--------+------+ | Former Smoker | Cigars | | | | + +--------+ +--------+------+ + +---+---+---+ | Smokeless Tobacco: | | | | | Never Used | | | | + +---+---+---+ + + | Comments: Cigars in college | + + + + +---------+ + | Alcohol Use | Drinks/Week | oz/Week | Comments | + + +---------+ + | Yes | | | 1/2 a beer per year | + + +---------+ + + + + | Sex Assigned at | Date Recorded | | | | + + + | Not on file | | + + + documented as of this encounter Plan of Treatment Not on filedocumented as of this encounter Visit Diagnoses Not on filedocumented in this encounter"
--- OUTSIDE RECORDS SUMMARY | ~2020-05-21 | XMS | Encounter Summary ---
Demographics + + + | Address | [address] | | | [place] [address] | + + + | Home Phone | | + + + | Preferred Language | Unknown | + + + | Marital Status | Single | + + + | Adventism Affiliation | 1041 | + + + | Race | White | + + + | Ethnic Group | Not or | + + + Author + + + | Author | [facility] | | | and [place] | + + + | Organization | [facility] | | | [...] Team Providers + +------+ + | Care Early Childhood Director Name | Role | Phone | + +------+ + | Juan Dong MD | PCP | | + +------+ + Reason for Visit + + + | Reason | Comments | + + + | Tinnitus | | + + + | Other | | + + + Evaluate & Treat (Routine) +--------+--------+ + + + + | Status | Reason | Specialty | Diagnoses / | Referred By | Referred To | | | | | Procedures | Contact | Contact | +--------+--------+ + + + + | Closed | | Audiology | Diagnoses | Iker, | Angus, | | | | | hearing | Juan Rea, | MS Isabella | | | | | loss | [address] | [facility] [address] | | | | | Procedures | [place] | [address] [place] | | | | | audiogram | [address] | [address] | | | | | | [place], | [place] | | | | | | [place] | [address] Phone: | | | | | | [address] | [phone] | | | | | | Phone: | Fax: | | | | | | [phone] | [phone] | | | | | | Fax: | | | | | | | [phone] | | +--------+--------+ + + + + Encounter Details +--------+---------+ + + + | Date | Type | Department | Care Team | Description | +--------+---------+ + + + | 06/23/ | Office | [facility] | Isabella Greco MS | Subjective tinnitus | | 2012 | Visit | AUDIOLOGY AND | [facility] [address] | (Primary Dx); | | | | [facility] | [address] | Dysfunction of | | | | [address] | [place] [address] | eustachian tube | | | | [address] [facility] | [phone] | | | | | [place] [address] | | | | | | [phone] | | | +--------+---------+ + + + Social History + +-------+ [...] documented as of this encounter Progress Notes Isabella Greco, CCC-A - 06/23/2013 2:21 PM PDTMs. Leung was referred by Dr. Dinh. Ms. Leung noticed ringing and buzzing in her ears two years ago following back surgery and new medication. Both ears also feel plugged since then. About three weeks ago, Ms. Leung expe rienced heavy nosebleeds. Results of hearing test: Right ear--Pure tone air and bone conduction testing showed a mil d conductive hearing loss with [id number] of 20-40dB in the low frequencies with normal he aring at 1000 through 4000Hz sloping to 45dB loss at 8000Hz. Left ear--Essentially normal hearing in the low fr equencies sloping to a 35-40dB sensory-neural loss at 1000Hz through 4000Hz, before sloping to 65dB loss at 8000Hz. A mild [id number]-hqfl-tno was recorded at 250 Hz and 4000Hz. Speech Recognition Thresholds were normal: 15dB in the Right ear and 20dB in hte left ear. Speech Discrimination ability was good with scores of 96% in both ears. Tympanometry showed significant positive middle-ea r air pressure in the right ear and significant negative middle-ear air pressure in the left ear. Impression and recommendation: Subjective tinnitus with bilateral eustachian tube dysfunct ion. Follow-up care with KAMERON Herman. Thank you. 3 :41 PM PDTdocumented in this encounter Procedure Notes ONBASE SCAN WAME - 06/23/2013 12:00 AM PDTAssociated Order(s): DIAGNOSTIC REPORT - EXTERNAL SCAN documented in this enco unter Plan of Treatment Not on filedocumented as of this encounter Procedures + +--------+ + + + | Procedure Name | Priori | Date/Time | Associated Diagnosis | Comments | | | ty | | | | + +--------+ + + + | DIAGNOSTIC REPORT - | | 06/23/2013 | | | | EXTERNAL SCAN | | 12:00 AM | | | | | | PDT | | | + +--------+ + + + documented in this encounter Visit Diagnoses + + | Diagnosis | + + | Subjective tinnitus - Primary | + + | Dysfunction of eustachian tube Dysfunction of Eustachian tube | + + documented in this encounter"
--- OUTSIDE RECORDS SUMMARY | ~2020-05-21 | XMS | Encounter Summary ---
Demographics + + + | Address | [address] | | | [place] [address] | + + + | Home Phone | | + + + | Preferred Language | Unknown | + + + | Marital Status | Single | + + + | Moravian Affiliation | CAT | + + + | Race | White | + + + | Ethnic Group | Not or | + + + Author + + + | Author | [facility] | + + + | Organization | [facility] | + + + | Address | Unknown | + + + | Phone | Unavailable | + + + Support + + +---------+ + | Name | Relationship | Address | Phone | + + +---------+ + | Douglas Springer | ECON | Unknown | | + + +---------+ + Care Team Providers + +------+ + | Care Health Education Director Name | Role | Phone | + +------+ + | Juan Dong MD | PCP | | + +------+ + Reason for Referral PROC - Outpatient Surgery (Routine) +--------+--------+ + + + + | Status | Reason | Specialty | Diagnoses / | Referred By | Referred To | | | | | Procedures | Contact | Contact | +--------+--------+ + + + + | Closed | | Otolaryngolog | Diagnoses | Shindo, | Shindo, | | | | y | Primary | Rosalind Mayo MD | Rosalind Mayo MD | | | | | hyperparathy | [address] | | | | | roidism | [address] | [address] | | | | | Procedures | Bina [address]ara | [address] [place], | | | | | REQUEST TO | [place], [place] | [place] | | | | | SURGERY | [address] | [address] | | | | | JOB ESTIMATOR | Phone: | Phone: | | | | | [place] EXPLORE | [phone] | [phone] | | | | | PARATHYROID | Fax: | Fax: | | | | | [place] | [phone] | [phone] | | | | | AUTOTRANSPLA | | | | | | | NT, | | | | | | | PARATHYROID | | | | | | | [place] | | | | | | | GUIDE, | | | | | | | INTRAOP 90 | | | | | | | global | | | +--------+--------+ + + + + Diagnostic Testing (Routine) +--------+--------+ + + + + | Status | Reason | Specialty | Diagnoses / | Referred By | Referred To | | | | | Procedures | Contact | Contact | +--------+--------+ + + + + | Closed | | Radiology | Diagnoses | Jaron, | Rad General | | | | | | Ricco Stock PA-C | [address] | | | | | Hyperparathy | [address] | [address] | | | | | roidism | [address] | [address] | | | | | (HCC) | [address] | Physician's | | | | | Procedures | [place], [place] | Pav[address], [address] | | | | | CT NECK | [address] | Floor | | | | | PARATHYROID | | [place], [place] | | | | | [address] CONTRAST | | [address] | | | | | [place] [address] N[address]K | | Phone: | | | | | TISSUE | | [phone] | | | | | CONTRAST | | Fax: | | | | | | | [phone] | +--------+--------+ + + + + Reason for Visit + + + | Reason | Comments | + + + | New patient | | | consultation | | + + + Consultation (Routine) +--------+--------+ + + + + | Status | Reason | Specialty | Diagnoses / | Referred By | Referred To | | | | | Procedures | Contact | Contact | +--------+--------+ + + + + | Closed | | Otolaryngolog | Diagnoses | Iker, | Bryce, | | | | y | | Juan Mayo MD | Rosalind Mayo MD | | | | | Hyperparathy | [place] | [address] [facility] | | | | | roidism | INTERNAL | [address] | | | | | ([facility]) | MEDICINE | [address] [place], | | | | | | [address] | [place] | | | | | | [address] | [address] | | | | | | [address] | Phone: | | | | | | [place], | [phone] | | | | | | [place] [address] | Fax: | | | | | | Phone: | [phone] | | | | | | [phone] | | | | | | | Fax: | | | | | | | [phone] | | +--------+--------+ + + + + Encounter Details +--------+---------+ + + + | Date | Type | Department | Care Team | Description | +--------+---------+ + + + | 03/19/ | Office | Otolaryngology | Ricco Salmeron, | Hyperparathyroidism | | 2017 | Visit | Thyroid Services at | PA-C | ([facility]) (Primary Dx); | | | | [address] | | Coronary artery | | | | [address] | | disease, angina | | | | Physician's | | presence | | | | Pavilion, [address] floor | | unspecified, | | | | [place], [place] | | unspecified vessel | | | | [address] | | or lesion type, | | | | [phone] | | unspecified whether | | | | | | [place] or | | | | | | transplanted heart; | | | | | | Osteoporosis, | | | | | | unspecified | | | | | | osteoporosis type, | | | | | | unspecified | | | | | | pathological | | | | | | fracture presence | +--------+---------+ + + + Social History [...] + + + | Blood Pressure | 122/60 | 03/19/2017 10:03 AM | | | | | PDT | | + + + + + | Pulse | 80 | 03/19/2017 10:03 AM | | | | | PDT [...] + + + + | Weight | 56 kg (123 lb 8 oz) | 03/19/2017 10:03 AM | | | | | PDT | | + + + + + | Height | - | - | | + + + + + | Body Mass Index | - | - | | + + + + + documented in this encounter Progress Notes Ricco Salmeron PA-C - 03/19/2017 11:00 AM PDTFormatting of this note might be different f rom the original. PATIENT: Joselyn Leung Date of Office Visit: 03/19/2017 [facility] MR#: [id number] : 1945 REFERRING PROVIDER: Juan Dong MD PRIMARY CARE PROVIDER: Juan Dong MD Chief Complaint Patient presents with New patient consultation HPI: Joselyn Leung is a 71 y.o. female who was referred to the [facility] by Dr. Dong for evaluation and consideration for surgical treatment of primary hype rparthyroidism. The patient was discovered to have hypercalcemia approximately 3-4 years ag o, where calcium was 10.5 at the highest. It has been followed over the years and remained high. She has osteoporosis with the left forearm being the worst at -4.7. She had one infu ousmane of Reclast but did not tolerate this. In 2014 patient was hospitalized for severe sepsis, respiratory failure, and acute ST-eleva tion ND in 2015, but has made a full recovery. Symptoms/manifestations related to primary hyperparathyroidism: History of renal stones No Bone pain Yes Muscle weakness/pain Yes Constipation No Fatigue Yes Depression/mood swings No She does have a history of fracture, broken arm at age 5 from a fall and pinky fracture fro m injury in highschool. She has had a bone density. Which shows osteopetrosis on 12/12/2015 (radius included -4.7) No past medical history on file. No past surgical history on file. Allergies Allergen Reactions Codeine Rash Prednisone Hives Reclast [Zoledronic Efcm-Igikrvmm-Drcve] Nausea and Vomiting Tramadol Lip Swelling Current Medication List Name Sig CHOLECALCIFEROL (VITAMIN D3) 1,000 UNIT TABLET Take 2,000 Units by mouth once daily. COENZYME Q10 10 MG CAPSULE Take by mouth. LORATADINE 10 MG TABLET Take 10 mg by mouth once daily. MULTIVITAMIN WITH MINERALS TABLET Take 1 tablet by mouth once daily. OMEPRAZOLE 10 MG CAPSULE,DELAYED RELEASE Take 10 mg by mouth once daily. There is no family history of high calcium or hyperparathyroidism Social Social History Substance Use Topics Smoking status: Never Smoker Smokeless tobacco: Never Used Alcohol use Yes Comment: social REVIEW OF SYSTEMS In addition to information already stated in HPI, the following was reviewed: Constitutional symptoms Fatigue - Yes Eyes: Change in vision? yes - cataract surgery 3 years ago Ears, Nose and Throat: Information in HPI. Respiratory: See HPI. In addition, no wheezing. Musculoskeletal: Joint Pain - See above HPI; Muscle pain or weakness - see above HPI Cardiovascular: Chest pain or palpitations? yes - racing heart when nervous Gastrointestinal: Constipation ? no Neurologic: Numbness or tingling? no EXAMINATION: BP 122/60 | Pulse 80 | Wt 56 kg (123 lb 8 oz) General: Well nourished, well-developed patient, calm Face: no facial deformities or dysmorphic features Eyes: sclera anicteric, conjunctiva pink Ears: Right external ear, external auditory canal, and tympanic membrane normal, no effusi ons or lesions. Left external ear, external auditory canal, and tympanic membrane normal, no effusions or lesions Nose: Normal external appearance, anterior rhinoscopy demonstrates healthy pink mucosa, no concerning lesions Oropharynx: Normal tonsillar pillars, palatine tonsils, tongue base, soft palate, pharyngea l wall on inspection and palpation Neck: On inspection and palpation, no cervical lymphadenopathy identified, no palpable thyr oid lesions, and the trachea is in the midline. Salivary gland contours normal. Respiratory and Voice: normal respiratory effort, no stridor, normal voice Cardiovascular: regular heart rate Psychiatric: Normal mood and affect, very pleasant Neurological: cranial nerves II through XII grossly intact, alert, normal speech articulati on and fluency Skin: no obvious skin lesions within scalp, head or neck skin STUDIES REVIEWED [facility] Sestamibi 08/26/2016 in [facility] DEXA 12/12/2015 12/30/2016 11/03/2016 06/13/2016 05/18/2011 TSH 3.46 2.79 2.69 0.90 Free T4 1.09 -- 1.14 -- 12/30/2016 07/23/2016 06/27/2016 06/13/2016 Intact PTH 91.37 71.31 82.52 103.3 Calcium 10.2 10.3 10.0 10.3 12/30/2016 06/13/2016 11/27/2015 01/12/2015 BUN 19 16 22 15 Creatinine 0.96 0.97 0.96 0.85 01/12/2015 01/10/2010 Vitamin D 25-Hydroxy 51 45.4 11/06/2016 24-HR Urine Calcium 212 Urine Volume 2000 Assessment: The patient does meet biochemical criteria for primary hyperparathyroidism. He r indication for surgery is osteoporosis. She had a sestamibi done in 2015 that did not lo calize a parathyroid adenoma however on review there is a possible candidate on the left. U S done today did not localize an adenoma. She did have a right sided thyroid nodule, spongi form appearing measuring 8 x 3.8 x 6.5 mm. Patient will need a CT parathyroid to evaluate f or an adenoma. She also needs an ECG, given her hx of ND in 2014. She had a follow up stre ss treadmill in 2014 that was normal and is asymptomatic. Recommendation(s). -CT parathyroid to be done same day as preop evaluation, patient may want to do preop appt the day prior to surgery since she is coming from [place], [place]. -FFL at preop visit Ricco Salmeron PA-C Department of Otolaryngology - Head & Neck Surgery Display Progress Note in MyChart: No documented in this encounter Plan of Treatment Not on filedocumented as of this encounter Procedures + +--------+ + + + | Procedure Name | Priori | Date/Time | Associated Diagnosis | Comments | | | ty | | | | + +--------+ + + + | 12 LEAD ECG | Routin | 03/19/2017 | | Results for this | | | e | 12:25 PM | Hyperparathyroidism | procedure are in the | | | | PDT | ([facility]) Coronary | results section. | | | | | artery disease, | | | | | | angina presence | | | | | | unspecified, | | | | | | unspecified vessel | | | | | | or lesion type, | | | | | | unspecified whether | | | | | | [place] or | | | | | | transplanted heart | | + +--------+ + + + documented in this encounter Results CT NECK PARATHYROID W CONTRAST (05/15/2017 12:33 PM PDT) + + | Specimen | + + | | + + + + + | Narrative | Performed At | + + + | EXAM: CT Neck - Parathyroid with contrast HISTORY: 71-year-old | [facility] | | with history of hyperparathyroidism presents for her dynamic CT | RADIOLOGY VOICE | | imaging of the neck. COMPARISON: None TECHNIQUE: 25 sec | RECOGNITION | | arterial phase CT from inferior aspect of mandible to right atrium, | | | followed by a 90 sec delayed phase scan. Sagittal and coronal | | | reconstructions for arterial and venous phase scans. Iodine based | | | contrast was administerd intravenously. FINDINGS: Neck soft | | | tissues: No definitive evidence of hyperenhancing lesion about the | | | thyroid or perithyroidal soft tissues. There is no evidence of | | | lymphadenopathy. Several subcentimeter hypoenhancing foci are observed | | | within the thyroid gland most prominently within the right aspect | | | measuring approximately 4 mm. Minimal bilateral proximal internal | | | carotid artery calcified and noncalcified atherosclerotic disease is | | | observed. Skull/Skull base: No fractures or destructive lesions. | | | Visualized mastoids and middle ears are unremarkable. Paranasal | | | sinuses: Visualized portions are unremarkable. Posterior fossa: | | | Visualized portions are unremarkable. Spine: Visualized portions | | | are unremarkable. Lung apices: Visualized portions are | | | unremarkable. IMPRESSION: No CT imaging evidence of | | | parathyroid adenoma. I have personally reviewed the images and, | | | if necessary, edited the report. I agree with the report as now | | | presented. | | + + + + + | Procedure Note | + + | Service Account, Radiant Res In Interface - 05/15/2017 2:56 PM PDT EXAM: CT Neck - | | Parathyroid with contrastHISTORY: 71-year-old with history of hyperparathyroidism | | presents for her dynamic CT imaging of the neck.COMPARISON: None TECHNIQUE: 25 sec | | arterial phase CT from inferior aspect of mandible to right atrium, followed by a 90 sec | | delayed phase scan. Sagittal and coronal reconstructions for arterial and venous phase | | scans. Iodine based contrast was administerd intravenously.FINDINGS:Neck soft tissues: | | No definitive evidence of hyperenhancing lesion about the thyroid or perithyroidal soft | | tissues. There is no evidence of lymphadenopathy. Several subcentimeter hypoenhancing | | foci are observed within the thyroid gland most prominently within the right aspect | | measuring approximately 4 mm. Minimal bilateral proximal internal carotid artery | | calcified and noncalcified atherosclerotic disease is observed.Skull/Skull base: No | | fractures or destructive lesions. Visualized mastoids and middle ears are unremarkable. | | Paranasal sinuses: Visualized portions are unremarkable.Posterior fossa: Visualized | | portions are unremarkable.Spine: Visualized portions are unremarkable. Lung apices: | | Visualized portions are unremarkable.IMPRESSION:No CT imaging evidence of parathyroid | | adenoma.I have personally reviewed the images and, if necessary, edited the report. I | | agree with the report as now presented. | | | |Posterior fossa: Visualized portions are unremarkable. | | | |Spine: Visualized portions are unremarkable. | | | |Lung apices: Visualized portions are unremarkable. | | | |IMPRESSION: | | | |No CT imaging evidence of parathyroid adenoma. | | | | | |I have personally reviewed the images and, if necessary, edited the report. I agree with t he report as now presented. | + + + +---------+ + + | Performing | Address | City/State/Zipcode | Phone Number | | Organization | | | | + +---------+ + + | [facility] | | | | | VOICE RECOGNITION | | | | + +---------+ + + 12 LEAD ECG (03/19/2017 12:25 PM PDT) + + + + + + | Component | Value | Ref Range | Performed | Pathologist | | | | | At | Signature | + + + + + + | VENTRICULAR | 72 | bpm | [facility] | | | RATE | | | OF | | | | | | CARDIOLOGY | | + + + + + + | ATRIAL RATE | 71 | ms | [facility] | | | | | | OF | | | | | | CARDIOLOGY | | + + + + + + | P-R | 156 | ms | [facility] | | | INTERVAL | | | OF | | | | | | CARDIOLOGY | | + + + + + + | P AXIS | 13 | deg | [facility] | | | | | | OF | | | | | | CARDIOLOGY | | + + + + + + | QRS | 82 | ms | [facility] | | | DURATION | | | OF | | | | | | CARDIOLOGY | | + + + + + + | QT | 404 | ms | [facility] | | | | | | OF | | | | | | CARDIOLOGY | | + + + + + + | QTC-LIZ | 443 | ms | [facility] | | | | | | OF | | | | | | CARDIOLOGY | | + + + + + + | R AXIS | -12 | deg | [facility] | | | | | | OF | | | | | | CARDIOLOGY | | + + + + + + | T AXIS | 15 | deg | [facility] | | | | | | OF | | | | | | CARDIOLOGY | | + + + + + + | ECG | SINUS RHYTHM | | [facility] | | | IMPRESSION | | | OF | | | | | | CARDIOLOGY | | + + + + + + | ECG | ABNRM R PROG, CONSIDER | | [facility] | | | IMPRESSION | ASMI OR LEAD PLACEMENT- | | OF | | | | ABNORMAL ECG - | | CARDIOLOGY | | + + + + + + | ECG | Electronically signed | | [facility] | | | IMPRESSION | by: NICK SAUCEDO | | OF | | | | 03-19-2017 13:48:15 | | CARDIOLOGY | | + + + + + [...] | + + + + + | [facility] | [address] | [place], [place] | | | CARDIOLOGY | [address] | [address] | | + + + + + documented in this encounter Visit Diagnoses + + | Diagnosis | + + | Hyperparathyroidism (HCC) - Primary Hyperparathyroidism, unspecified | + + | Coronary artery disease, angina presence unspecified, unspecified vessel or lesion | | type, unspecified whether [place] or transplanted heart | + + | Osteoporosis, unspecified osteoporosis type, unspecified pathological fracture | | presence | + + documented in this encounter"
--- OUTSIDE RECORDS SUMMARY | ~2020-05-21 | XMS | Encounter Summary ---
Demographics + + + | Address | [address] | | | [place] [address] | + + + | Home Phone [...] + + + | Author | [facility] | + + + | Organization | [facility] | + + + | Address | Unknown | + + + | Phone | Unavailable | + + + Support + + +---------+ + | Name | Relationship | Address | Phone | + + +---------+ + | Douglas Springer | ECON | Unknown | | + + +---------+ + Care Team Providers + +------+ + | Care Designer/Writer Name | Role | Phone | + [...] + + + + | 07/07/ | Anesthesia | 4N INTRA OP 3161 | Bhavik Barrow | | | 2017 | Event | BARR[place] Martin | MD Al [address] | | | | | [place] | [address] | | | | | Ambulatory Surgery | [place], [place] | | | | | Admitting Desk | [address] | | | | | Located on the [facility] | [phone] | | | | | floor, Room [facility] | | | | | | [place], [place] | Lowell Saravia, | | | | | [address] | [facility] [address] | | | | | | [address] | | | | | | [place], [place] | | | | | | [address] | | +--------+ + + + + Anesthesia Record + + + + + | Procedure Name | Responsible | Anesthesia Start | Anesthesia Stop Time | | | Anesthesiologist | Time | | + + + + + | Four gland | Bhavik Barrow, | 07/07/17 1057 | 07/07/17 1422 | | exploration; | MD | | | | specimen x 5 to | | | | | pathology (Bilateral | | | | | Neck) | | | | + + + + + +----+---+ + + | Da | T | Event | Comment | | te | i | | | | | m | | | | | e | | | +----+---+ + + | 11 | 0 | | | | /0 | 8 | | | | 7/ | 4 | | | | 20 | 1 | | | | 17 | | | | +----+---+ + + | | 1 | An Start | | | | 0 | | | | | 5 | | | | | 7 | | | +----+---+ + + | | 1 | Eq Check | Anesthesia machine checked Equipment verified | | | 1 | | | | | 0 | | | | | 2 | | | +----+---+ + + | | 1 | Pt. Check | Prior to anesthesia start, pt. Identified, examined, chart | | | 1 | | reviewed, PARQ held, anesthetic plan made or approved by | | | 0 | | attending anesthesiologist. NPO status confirmed as appropriate | | | 2 | | for procedure Preoperative evaluation: unchanged | +----+---+ + + | | 1 | An Start | | | | 1 | Data | | | | 0 | | | | | 2 | | | +----+---+ + + | | 1 | Vitals | Monitors applied Vital signs checked Patient ready for anesthesia | | | 1 | Checked | | | | 0 | | | | | 3 | | | +----+---+ + + | | 1 | ETT | | | | 1 | | | | | 0 | | | | | 9 | | | +----+---+ + + | | 1 | Ready | | | | 1 | | | | | 1 | | | | | 5 | | | +----+---+ + + | | 1 | Timeout | | | | 1 | | | | | 5 | | | | | 2 | | | +----+---+ + + | | 1 | Abx held | Contraindicated, or not indicated for this procedure, or already | | | 1 | Medical or | receiving antibiotics | | | 5 | Surgical | | | | 3 | Reason | | +----+---+ + + | | 1 | Incision | | | | 1 | | | | | 5 | | | | | 7 | | | +----+---+ + + | | 1 | Surgery end | | | | 4 | | | | | 0 | | | | | 8 | | | +----+---+ + + | | 1 | An Extubate | Neuromuscular function Intact. Pharynx suctioned. Patient obeys | | | 4 | | commands. Adequate pulmonary mechanics. | | | 1 | | | | | 0 | | | +----+---+ + + | | 1 | an stop | | | | 4 | data | | | | 1 | | | | | 1 | | | +----+---+ + + | | 1 | PACU Rpt | | | | 4 | Given | | | | 2 | | | | | 2 | | | +----+---+ + + | | 1 | Anesthesia | | | | 4 | End | | | | 2 | | | | | 2 | | | +----+---+ + + +------+ | Meds | +------+ + + + | Name | Total | + + + | midazolam | 2 mg | + + + | fentaNYL | 250 mcg | + + + | lidocaine 2% | 60 mg | + + + | propofol | 180 mg | + + + | succinylcholine | 90 mg | + + + | dexamethasone | 10 mg | + + + | PHENYLEPHrine INF (50mg/250mL) | 4,153.03 mcg | + + + | metoclopramide | 10 mg | + + + | scopolamine (TRANSDERM-SCOPE) | 1 mg | | patch | | + + + | ePHEDrine | 30 mg | + + + | PHENYLEPHrine | 400 mcg | + + + | propofol INF | 226,730 mcg | + + + | lactated Ringers IV | 1,250 mL | + + + + + | Name | + + | Insp Sevo | + + | Et Sevo | + + | EtN2O % | + + | Insp N2O % | + + | O2 Flow Rate (Total Liters) | + + | Air Flow rate (L/min) | + + + + | No blood administrations on file. | + + +--------+ + + + | Type | Details | Placement | Removal | +--------+ + + + | Incisi | 07/07/17; Anterior, Transverse; | 07/07/17 0000 by Sofi | | | on | neck | VIV Childers | | +--------+ + + + | Periph | 07/07/17; 926; Bao Turner RN; | 07/07/17926 by | 07/08/17 1255 by | | eral | Right; Forearm; 20 g; Lidocaine; | Harshad Turner RN | Kesha Jackman RN | | IV | No; Positive; 07/08/17; 1255; | | | | | Discharge | | | +--------+ + + + | Periph | 07/07/17; 1115; Clinic Staff; | 07/07/17 1115 by | 07/08/17 0859 by | | mikie | elliot rubio; Left; Wrist; 18 g; | Lowell Saravia, | Kesha Jackman RN | | IV | Positive; 07/08/17; 0859; Per | FRONT END MECHANIC | | | | patient/family request | | | +--------+ + + + documented in this encounter Social History + +-------+ +--------+------+ | Tobacco [...] + + documented as of this encounter OR Notes Anesthesia Postprocedure Evaluation - Lowell Saravia CRNA - 07/07/2017 2:23 PM PSTFor matting of this note might be different from the original. Joselyn Leung [id number] Allergies Allergen Reactions Paroxetine Hcl Anxiety and Rash Sertraline Unknown, Anxiety and Rash serotonin syndrome?? Codeine Rash Prednisone Hives Prozac [Fluoxetine Hcl] Unknown serotonin syndrome?? Reclast [Zoledronic Kwvr-Wurfoyoy-Lcnhl] Nausea and Vomiting Tramadol Lip Swelling Past Surgical History Procedure Laterality Date section 1977,1979 Tonsil and adenoid surgery 1951 Carpal tunnel release Bilateral 1981,1982 Cholecystectomy 2000 L5 laminectomy Cataract extraction with lens implant Bilateral Temp: 36.6 C (97.9 F) Pulse: 101 Resp: 14 BP: 104/61 SpO2: 99 % Evaluation Patient personally seen and evaluated for recovery from anesthesia care, VS including tempe rature and hydration status are normal and ROS including card, resp, Neuro, and GI w/o evide nce of adverse effects Complications nesthesia Proce marion Notes - Lowell Saravia CRNA - 07/07/2017 12:01 PM PSTAssociated Order(s): ANE ETTP rocedure Reason for Intubation: For surgical procedure, Location Performed: OR , Patient was preoxyg enated Mask Ventilation Grade 1 - Ventilated by mask Intubation Blade type: Carrero , Blade size: 2, Atraumatic laryngoscopy: Atraumatic Laryngoscopy, Laryn goscopic view: Grade I, Number of Attempts: 1, Positive for EtCO2: Yes, Breath sounds: Bilat eral and equal ETT Ett Adult: OtherOther Type Ett: NIMS Tube PSR ETT Size: 7 ETT secured with: adhesive tape Depth at Teeth: 22 Cm Narrative Attending physically present Associated attestation - Bhavik Barrow MD - 07/07/2017 1:11 PM PSTPresent for proce dure; agree with documentationAnesthesia Preprocedure Evaluation - Bhavik Barrow MD - 07/07/2017 8:41 AM PST Joselyn Madhu [id number] Allergies Allergen Reactions Paroxetine Hcl Anxiety and Rash Codeine Rash Prednisone Hives Prozac [Fluoxetine Hcl] Unknown serotonin syndrome?? Reclast [Zoledronic Bwhj-Opualthw-Dfroe] Nausea and Vomiting Sertraline Unknown serotonin syndrome?? Tramadol Lip Swelling NPO: Last Vitals: Temp: 36.5 C (97.7 F) Pulse: 94 Resp: 16 BP: 136/79 SpO2: 100 % O2 Delivery Device: None (room air) Preg Status/LMP: Patient Active Problem List Diagnosis Seasonal allergies GERD (gastroesophageal reflux disease) Primary hyperparathyroidism (HCC) Osteoporosis without pathological fracture Cough Past Surgical History Procedure Laterality Date section 1977,1979 Tonsil and adenoid surgery 1951 Carpal tunnel release 1981,1982 Cholecystectomy 2000 L5 laminectomy Current Medication List Name Sig Last Dose CHOLECALCIFEROL (VITAMIN D3) 1,000 UNIT TABLET Take 2,000 Units by mouth once daily. COENZYME Q10 10 MG CAPSULE Take by mouth. MULTIVITAMIN WITH MINERALS TABLET Take 1 tablet by mouth once daily. OMEPRAZOLE 10 MG CAPSULE,DELAYED RELEASE Take 2 capsules by mouth once daily. Lab Results Component Value Date RATE 72 03/19/2017 ATRIALRATE 71 03/19/2017 OK 156 03/19/2017 QRS 82 03/19/2017 QT 404 03/19/2017 PAXIS 13 03/19/2017 RAXIS -12 03/19/2017 TAXIS 15 03/19/2017 Preoperative Adult Anesthesia Plan Last edited 07/06/17 1433 by Angie Bradford NP ROS Pertinent HPI: Pulmonary: Reflux induced asthma - no treatments. Pt. Has asthma No dx of sleep apnea Cardiovascular: "intermittent "catch" - a left sided - funny feeling - palpitation. Denies CP, presyncope, syncope. ECHO normal. Activity: walks 2 flights - walks 5 miles last Thursday at the [place] without CP. Functional Capacity: Moderate - dyspnea on exertion, palpitations and chest pressure no hypertension Vascular: no VASCULAR SYMPTOMS GI/Hepatic: High bilirubin GERD Control: Well controlled No liver disease : no renal failure Endo: Borderline DM2 no Diabetes: Parathyroid: hyperparathyroidism Neurological: Treatments: Treated w/medications no seizures psychiatric problem anxiety pain Chronic pain > 6 months Chronic pain related to scheduled surgery In chronic pain: Yes Current Pain Level: MS: Chronic L5S1 back pain. Chronic upper back pain with "catch". arthritis Other MS, Heme/Onc: Within Defined Limits except as noted below no Bleeding diathesis / thrombotic bleeding Previous Transfusions: no transfusion hx Hx: no other heme, Malignancy: no cancer, Location: Metastasis: Skin: Obstetrics: 1433 Revision History Date/Time User Provider Type Action > 07/06/17 1433 Angie Bradford NP Nurse Practitioner Addend 07/06/17 1413 Angie Bradford NP Nurse Practitioner Sign Anesthesia Plan Comments ASA ASA 2 NPO Status NPO Status: NPO by protocol Monitors/Lines to be used Standard Anesthetic Consideration PONV prophylaxis and Scopolamine patch Induction intravenous induction Anesthetic Technique General; Obstetric Anesthesia Post-Op Pain Plan IV analgesics; Blood Products Interpretive Services Informed Consent PARQ discussed with: patient, Procedures, Alternatives, Risks, and Questions discussed and Risk/benefit of anesthesia plan and blood product discussed Code status in OR Patients Code Status in OR: FULL 07/07 8:41 AM documented in thi s encounter Miscellaneous Notes PMC/ANE PreOp Note - Angie Bradford NP - 07/06/2017 2:06 PM PST ROS Pertinent HPI: Pulmonary: Reflux induced asthma - no treatments. Pt. Has asthma No dx of sleep apnea Cardiovascular: "intermittent "catch" - a left sided - funny feeling - palpitation. Denies CP, presyncope, syncope. ECHO normal. Activity: walks 2 flights - walks 5 miles last Thursday at the [place] without CP. Func tional Capacity: Moderate - dyspnea on exertion, palpitations and chest pressure no hypertension Vascular: no VASCU LAR SYMPTOMS GI/Hepatic: High bilirubin GERD Control: Well controlled No liver disease : no renal failure Endo: Borderline DM2 no Diabetes: Parathyroid: hyperparathyroidism Neurological: Treatments: Treated w/medications no seizures psychiatric problem anxiety p ain Chronic pain > 6 months Chronic pain related to scheduled surgery In chronic pain: Yes Current Pain Level: MS: Chronic L5S1 back pain. Chronic upper back pain with "catch". arthritis Other MS, Heme/Onc: Within Defined Limits except as noted below no Bleeding diathesis / thrombotic bl eeding Previous Transfusions: no transfusion hx Hx: no other heme, Malignancy: no cancer, Location: Metastasis: Skin: Obstetrics: MC/ANE PreOp Note - Bhavik Elizabeth MD - 07/06/2017 1:43 PM PST ROS Pertinent HPI: HPI: Joselyn Leung is a 71 y.o. female who was referred to the [facility] for primary hyperparathyroidism. The patient was discovered to have h ypercalcemia approximately 3-4 years ago, where calcium was 10.5 at the highest. It has bee n followed over the years and remained high. She had one infusion of Reclast but did not bernie erate this. Indication for surgery is osteoporosis. In 2014 patient was hospitalized for severe sepsis, respiratory failure, and acute ST-eleva tion [place] in 2014, but has made a full recovery. ECHO - 03-31-17 1. Overall left ventricular systolic function is normal with, an EF between 60 - 65 %. 2. The right ventricle is normal in size and function. 3. No significant valvular abnormali ty. 4. There are no significant changes noted in comparison to the previous echocardiographi c study, done 01/01/15. Pulmonary: cough chronic Pt. Has no asthma no COPD No dx of sleep apnea Risks factors for sleep apnea: Age>50 Pt at low risk of PATRICK Cardiovascular: Functional Capacity: Moderate - cyanosis, dyspnea on exertion, palpitations and chest pressure no CAD no CHF no hyperte nsion no pacemaker GI/Hepatic: GERD Control: Well controlled No liver disease : no renal failure no dialysis Endo: no Diabetes: Parathyroid: hyperparathyroidism Neurological: no psychiatric problem no pain Current Pain Level: Current pain level: 0 MS: osteoporosis Heme/Onc: Skin: Obstetrics: Physical Exam General: Patients general appearance: Healthy, Alert and No distress Head & Neck/Airway: TM Distance:> 6cm Dentition: dentures-upper Dental risk discussed with/pt : Yes Pitts: No Mallampati: II Mouth Opening: > = 3 cm C-Spine: normal Neck Anatomy: Normal Jaw Protrusion: Normal, lower incisors can protrude past upper incisors Lung Exam: breath sounds normal Cardiac: Rhythm: regular Rate: normal Abdominal: Musculoskeletal: Neuro/Psych: alert Integument: Implants: documented in thi s encounter Plan of Treatment Not on filedocumented as of this encounter Procedures + +--------+ + + + | Procedure Name | Priori | Date/Time | Associated Diagnosis | Comments | | | ty | | | | + +--------+ + + + | ADRIAN FIGUEROA | Routin | 07/07/2017 | | Results for this | | | e | 1:11 PM | | procedure are in the | | | | PST | | results section. | + +--------+ + + + documented in this encounter Results ADRIAN ETDonnie (07/07/2017 1:11 PM PST) + + + | Narrative | Performed At | + + + | Lowell Saravia CRNA 07/07/2017 12:05 PM Procedure Reason | | | for Intubation: For surgical procedure, Location Performed: OR , | | | Patient was preoxygenated Mask Ventilation Grade 1 - Ventilated by | | | mask Intubation Blade type: Carrero , Blade size: 2, Atraumatic | | | laryngoscopy: Atraumatic Laryngoscopy, Laryngoscopic view: Grade I, | | | Number of Attempts: 1, Positive for EtCO2: Yes, Breath sounds: | | | Bilateral and equal ETT Ett Adult: OtherOther Type Ett: NIMS | | | Tube PSR ETT Size: 7 ETT secured with: adhesive tape Depth at | | | Teeth: 22 Cm Narrative Attending physically present | | + + + documented in this encounter Visit Diagnoses Not on filedocumented in this encounter Administered Medications + +--------+ +-------+------+------+ | Medication Order | MAR | Action | Dose | Rate | Site | | | Action | Date | | | | + +--------+ +-------+------+------+ | dexamethasone (DECADRON) | Given | 07/07/20 | 10 mg | | | | injection INTRAPROCEDURE PRN, | | 17 11:15 | | | | | Starting 07/07/17 at 1115, | | AM PST | | | | | Until 07/07/17 at 1412 | | | | | | + +--------+ +-------+------+------+ +---+---+ | | | +---+---+ + +-------+ +------+---+---+ | ePHEDrine injection | Given | 07/07/20 | 5 mg | | | | intravenous, INTRAPROCEDURE PRN, | | 17 1:25 | | | | | Starting e 07/07/17 at 1111, | | PM PST | | | | | Until e 07/07/17 at 1412 | | | | | | + +-------+ +------+---+---+ +-------+ +-------+---+---+ | Given | 07/07/20 | 10 mg | | | | | 17 11:16 | | | | | | AM PST | | | | +-------+ +-------+---+---+ | Given | 07/07/20 | 15 mg | | | | | 17 11:11 | | | | | | AM PST | | | | +-------+ +-------+---+---+ +---+---+ | | | +---+---+ + +-------+ +--------+---+---+ | fentaNYL citrate (PF) | Given | 07/07/20 | 50 mcg | | | | (SUBLIMAZE) injection | | 17 12:57 | | | | | INTRAPROCEDURE PRN, Starting Tue | | PM PST | | | | | 07/07/17 at 1109, Until Tue | | | | | | | 07/07/17 at 1412 | | | | | | + +-------+ +--------+---+---+ +-------+ +---------+---+---+ | Given | 07/07/20 | 100 mcg | | | | | 17 11:56 | | | | | | AM PST | | | | +-------+ +---------+---+---+ | Given | 07/07/20 | 100 mcg | | | | | 17 11:09 | | | | | | AM PST | | | | +-------+ +---------+---+---+ +---+---+ | | | +---+---+ + + + +---+---+---+ | lactated Ringers IV 10 mL/hr, | given by | 07/07/20 | | | | | intravenous, PROCEDURE | | 17 2:04 | | | | | CONTINUOUS, Starting e 07/07/17 | anesthes | PM PST | | | | | at 0900, Until Thu07/07/17 at | iology | | | | [...] +---+ +---+---+ | | | +---+---+ + +-------+ +-------+---+---+ | lidocaine (XYLOCAINE MPF) 2 % | Given | 07/07/20 | 60 mg | | | | (20 mg/mL) injection | | 17 11:07 | | | | | INTRAPROCEDURE PRN, Starting Tue | | AM PST | | | | | 07/07/17 at 1107, Until Tue | | | | | | | 07/07/17 at 1412 | | | | | | + +-------+ +-------+---+---+ +---+---+ | | | +---+---+ + +-------+ +-------+---+---+ | metoclopramide HCl (REGLAN) | Given | 07/07/20 | 10 mg | | | | injection intravenous, | | 17 11:15 | | | | | INTRAPROCEDURE PRN, Starting Tue | | AM PST | | | | | 07/07/17 at 1115, Until Tue | | | | | | | 07/07/17 at 1412 | | | | | | + +-------+ +-------+---+---+ +---+---+ | | | +---+---+ + +-------+ +------+---+---+ | midazolam (VERSED) injection | Given | 07/07/20 | 2 mg | | | | INTRAPROCEDURE PRN, Starting Tue | | 17 10:57 | | | | | 07/07/17 at 1057, Until Tue | | AM PST | | | | | 07/07/17 at 1412 | | | | | | + +-------+ +------+---+---+ +---+---+ | | | +---+---+ + +-------+ +---------+---+---+ | PHENYLEPHrine 100 mcg/mL IV | Given | 07/07/20 | 100 mcg | | | | syringe INTRAPROCEDURE PRN, | | 17 11:28 | | | | | Starting 07/07/17 at 1112, | | AM PST | | | | | Until 07/07/17 at 1412 | | | | | | + +-------+ +---------+---+---+ +-------+ +---------+---+---+ | Given | 07/07/20 | 100 mcg | | | | | 17 11:16 | | | | | | AM PST | | | | +-------+ +---------+---+---+ | Given | 07/07/20 | 200 mcg | | | | | 17 11:12 | | | | | | AM PST | | | | +-------+ +---------+---+---+ +---+---+ | | | +---+---+ + + + + +-------+---+ | PHENYLEPHrine 50 mg/250 mL (0.2 | Rate/Dos | 07/07/20 | 0.2 | 3.32 | | | mg/mL) IV infusion (ADC) | e Change | 17 2:00 | mcg/kg/m | mL/hr | | | intravenous, INTRAPROCEDURE | | PM PST | in | | | | CONTINUOUS PRN, Starting Tue | | | | | | | 07/07/17 at 1122, Until Tue | | | | | | | 07/07/17 at 1412 | | | | | | + + + + +-------+---+ + + + +-------+---+ | Rate/Dose Change | 11/07/20 | 0.5 | 8.3 | | | | 17 1:24 | mcg/kg/m | mL/hr | | | | PM PST | in | | | + + + +-------+---+ | Rate/Dose Change | 07/07/20 | 0.4 | 6.64 | | | | 17 1:02 | mcg/kg/m | mL/hr | | | | PM PST | in | | | + + + +-------+---+ +---+---+ | | | +---+---+ + + + + +--------+---+ | propofol (DIPRIVAN) injection | Rate/Dos | 07/07/20 | 50 | 16.59 | | | INTRAPROCEDURE CONTINUOUS PRN, | e Change | 17 1:54 | mcg/kg/m | mL/hr | | | Starting Thu07/07/17 at 1130, | | PM PST | in | | | | Until Thu07/07/17 at 1412 | | | | | | + + + + +--------+---+ +---------+ + +-------+---+ | New Bag | 07/07/20 | 25 | 8.3 | | | | 17 11:30 | mcg/kg/m | mL/hr | | | | AM PST | in | | | +---------+ + +-------+---+ +---+---+ | | | +---+---+ + +-------+ +--------+---+---+ | propofol INTRAPROCEDURE PRN, | Given | 07/07/20 | 180 mg | | | | Starting Thu07/07/17 at 1107, | | 17 11:07 | | | | | Until Thu07/07/17 at 1412 | | AM PST | | | | + +-------+ +--------+---+---+ +---+---+ | | | +---+---+ + +-------+ +------+---+---+ | scopolamine (TRANSDERM-SCOP) 1 | Given | 07/07/20 | 1 mg | | | | mg over 3 days INTRAPROCEDURE | | 17 10:26 | | | | | PRN, Starting 07/07/17 at | | AM PST | | | | | 1026, Until Thu07/07/17 at 1412 | | | | | | + +-------+ +------+---+---+ +---+---+ | | | +---+---+ + +-------+ +-------+---+---+ | SUCCINYLCHOLINE CHLORIDE 20 | Given | 07/07/20 | 90 mg | | | | MG/ML INJ (PROSED/RSI) | | 17 11:07 | | | | | INTRAPROCEDURE PRN, Starting Tue | | AM PST | | | | | 07/07/17 at 1107, Until Tue | | | | | | | 07/07/17 at 1412 | | | | | | + +-------+ +-------+---+---+ +---+---+ | | | +---+---+ documented in this encounter
--- OUTSIDE RECORDS SUMMARY | ~2020-05-21 | XMS | Encounter Summary ---
Demographics + + + | Address | [address] | | | [place] [address] | + + + | Home Phone | | + + + | Preferred Language | Unknown | + + + | Marital Status | Single | + + + | [employer]aritan Affiliation | 1041 | + + + | Race | White | + + + | Ethnic Group | Not or | + + + Author + + + | Author | [facility] | | | and [place] | + + + | Organization | [facility] | | | [...] Team Providers + +------+ + | Care Calculation Reviewer Name | Role | Phone | + +------+ + | Mick Malik MD | PCP | | + +------+ + Encounter Details +--------+ + + + + | Date | Type | Department | Care Team | Description | +--------+ + + + + | 07/08/ | Imaging | [facility] | Provider, | | | 2018 | Exam | [facility] | MD [address] | | | | | IMAGING [address] | | | | | [address] | [place] [address] | | | | | [place] [address] | | | | | | [phone] | | | +--------+ + + + [...] | + +--------+ + + + | DEXA BONE DENSITY | Routin | 12/12/2015 | | Results for this | | STUDY WO MYRONDonnie FX | e | 1:30 PM | | procedure are in the | | ASSESSMENT | | PDT | | results section. | + +--------+ + + + documented in this encounter Results DEXA Bone Density wo Vert Fx Assmt (12/12/2015 1:30 PM PDT) + + | Specimen | + + | | + + + + + | Narrative | Performed At | + + + | External films for comparison only | [facility] | | | | | No results will be in the chart. | | + + + + +---------+ + + | Performing | Address | City/State/Zipcode | Phone Number | | Organization | | | | + +---------+ + + | [facility] | | | | + +---------+ + + documented in this encounter Visit Diagnoses Not on filedocumented in this encounter"
--- OUTSIDE RECORDS SUMMARY | ~2020-05-21 | XMS | Encounter Summary ---
Demographics + + + | Address | [address] | | | [place] [address] | + + + | Home Phone | | + + + | Preferred Language | Unknown | + + + | Marital Status | Single | + + + | Sabianism Affiliation | CAT | + + + | Race | White | + + + | Ethnic Group | Not or | + + + Author + + + | Author | [facility] | + + + | Organization | [facility] | + + + | Address | Unknown | + + + | Phone | Unavailable | + + + Support + + +---------+ + | Name | Relationship | Address | Phone | + + +---------+ + | Douglas Springer | ECON | Unknown | | + + +---------+ + Care Team Providers + +------+ + | Care Director Business Management Name | Role | Phone | + +------+ + | Juan Dong MD | PCP | | + +------+ + Encounter Details +--------+ + + + + | Date | Type | Department | Care Team | Description | +--------+ + + + + | 03/18/ | Documentati | Otolaryngology | Rosalind Wu, | | | 2017 | on | Thyroid Services at | [address] | | | | | [address] [address] | | | | | [address] | [place], [place] | | | | | Physician's | [address] | | | | | Ever, [address] floor | [phone] | | | | | [place], [place] | | | | | | [address] | | | | | | [phone] | | | +--------+ + + + [...] this encounter Miscellaneous Notes Telephone Encounter - Erendira Murillo - 03/18/2017 4:48 PM PDT [facility] 08/26/2016 in [facility] DEXA 12/12/2015 12/30/2016 11/03/2016 06/13/2016 05/18/2011 TSH 3.46 2.79 2.69 0.90 Free T4 1.09 -- 1.14 -- 12/30/2016 07/23/2016 06/27/2016 06/13/2016 Intact PTH 91.37 71.31 82.52 103.3 Calcium 10.2 10.3 10.0 10.3 12/30/2016 06/13/2016 11/27/2015 01/12/2015 BUN 19 16 22 15 Creatinine 0.96 0.97 0.96 0.85 01/12/2015 01/10/2010 Vitamin D 25-Hydroxy 51 45.4 11/06/2016 24-HR Urine Calcium 212 Urine Volume 2000 documented in this encounte r Plan of Treatment Not on filedocumented as of this encounter Visit Diagnoses Not on filedocumented in this encounter"
--- OUTSIDE RECORDS SUMMARY | ~2020-05-21 | XMS | Encounter Summary ---
Demographics + + + | Address | [address] | | | [place] [address] | + + + | Home Phone | | + + + | Preferred Language | Unknown | + + + | Marital Status | Single | + + + | Adventist Affiliation | 1041 | + + + | Race | White | + + + | Ethnic Group | Not or | + + + Author + + + | Author | [facility] | | | and [place] | + + + | Organization | [facility] | | | [...] Team Providers + +------+ + | Care Hematology Technician Name | Role | Phone | + +------+ + | Mick Malik MD | PCP | | + +------+ + Reason for Visit Auth/Cert +--------+--------+ + + + + | Status | Reason | Specialty | Diagnoses / | Referred By | Referred To | | | | | Procedures | Contact | Contact | +--------+--------+ + + + + | | | | Diagnoses | | Harri, | | | | | | | Zachary Acosta MD | | | | | Gastroesopha | | [address], | | | | | geal reflux | | [address] | | | | | disease, | | [place], | | | | | esophagitis | | [place] [address] | | | | | presence not | | Phone: | | | | | specified | | [phone] | | | | | Weight loss, | | Fax: | | | | | | | [phone] | | | | | unintentiona | | | | | | | l Insomnia, | | | | | | | unspecified | | | | | | | type Hx of | | | | | | | aspiration | | | | | | | pneumonitis | | | | | | | Positive | | | | | | | colorectal | | | | | | | cancer | | | | | | | screening | | | | | | | using | | | | | | | Cologuard | | | | | | | test | | | | | | | Procedures | | | | | | | [place] | | | | | | | ESOPHAGOGAST | | | | | | | RODUODENOSCO | | | | | | | PY TRANSORAL | | | | | | | DIAGNOSTIC | | | | | | | [place] EGD | | | | | | | TRANSORAL | | | | | | | BIOPSY | | | | | | | SINGLE/MULTI | | | | | | | PLE [place] | | | | | | | ANESTHESIA | | | | | | | UPPER GI | | | | | | | ENDOSCOPIC | | | | | | | PX NOS [place] | | | | | | | COLONOSCOPY | | | | | | | FLX DX | | | | | | | W/COLLJ SPEC | | | | | | | WHEN PFRMD | | | | | | | [place] | | | | | | | COLONOSCOPY | | | | | | | W/BIOPSY | | | | | | | SINGLE/MULTI | | | | | | | PLE MN | | | | | | | COLSC FLX | | | | | | | W/RMVL OF | | | | | | | TUMOR POLYP | | | | | | | LESION SNARE | | | | | | | TQ MN | | | | | | | ANESTHESIA | | | | | | | COMBINED | | | | | | | UPPER&LOWER | | | | | | | GI | | | | | | | ENDOSCOPIC | | | | | | | PX EGD | | | +--------+--------+ + + + + Encounter Details +--------+ + + + + | Date | Type | Department | Care Team | Description | +--------+ + + + + | 05/31/ | Hospital | [facility] | Zachary Ramírez MD | Gastroesophageal | | 2019 | Encounter | [facility] | [address], [place] | reflux disease, | | | | [address] | [address] [place], [place] | esophagitis presence | | | | [place], [place] | [address] | not specified; | | | | [address] | | Weight loss, | | | | [phone] | | unintentional; | | | | | | Insomnia, | | | | | | unspecified type; Hx | | | | | | of aspiration | | | | | | pneumonitis; | | | | | | Positive colorectal | | | | | | cancer screening | | | | | | using Cologuard test | +--------+ + + + + Social [...] + + + | Blood Pressure | 106/68 | 05/31/2019 2:20 PM | | | | | PDT | | + + + + + | Pulse | 87 | 05/31/2019 2:20 PM | | | | | PDT | | + + + + + | Temperature | 36.1 C (97 F) | 05/31/2019 1:39 PM | | | | | PDT | | + + + + + | Respiratory Rate | 16 | 05/31/2019 1:39 PM | | | | | PDT | | + + + + + | Oxygen Saturation | 99% | 05/31/2019 2:20 PM | | | | | PDT | | + + + + + | Inhaled Oxygen | - | - | | | Concentration | | | | + + + + + | Weight | 52.5 kg (115 lb 11.9 | 05/31/2019 10:45 AM | | | | oz) | PDT | | + + + + + | Height | 167.6 cm (5' 6") | 05/31/2019 10:45 AM | | | | | PDT | | + + + + + | Body Mass Index | 18.68 | 05/31/2019 10:45 AM | | | | | PDT | | + + + + + documented in this encounter Medications at Time of Discharge + + + +---------+ + + | Medication | Sig | Dispensed | Refills | Start | End Date | | | | | | Date | | + + + +---------+ + + | acetaminophen | Take 2 tablets by | | 0 | 07/08/20 | | | (TYLENOL) 325 mg | mouth every four | | | 17 | | | tablet | hours as needed. | | | | | + + [...] + + + +---------+ + + | pantoprazole | Take 40 mg by mouth | | 0 | | | | (PROTONIX) 40 mg | every evening | | | | | | tablet | | | | | | + + + +---------+ + + | coenzyme Q10 100 | Take 100 mg by mouth | | 0 | | | | MG CAPS | daily | | | | 0 | + + + +---------+ + + | famotidine | Take 40 mg by mouth | | 0 | 06/14/20 | | | (PEPCID) 40 MG | daily evening | | | 18 | 9 | | tablet | | [...] + + documented as of this encounter H&P Zachary Santana MD - 05/31/2019 12:46 PM PDTPatient has no questions consent forms were sig sydney we will proceed with upper endoscopy colonoscopy arri, Zachary Acosta MD - 05/26/2019 10:30 AM PDT PRE-ENDOSCOPY HISTORY AND PRE-SEDATION ASSESSMENT PATIENT NAME: Joselyn Leung : 1945 TODAY'S DATE: 05/31/2019 PLANNED PROCEDURE: upper endoscopy and colonoscopy PERTINENT HISTORY/INDICATION FOR PROCEDURE: Joselyn Leung is a 73 y.o. female who is und ergoing upper endoscopy and colonoscopy for evaluation of GERD, weight loss and for positive Cologuard. The patient reports that her weight loss has stabilized and in fact she's been able to gain some weight. She denies any change in bowel pattern blood in the stools or abd ominal pain. The patient is on Pepcid with respect to her treatment of reflux. She denies dysphagia or odontophagia. There is no family history of colon cancer or polyps PAST HISTORY: Past Medical History: Diagnosis Date Acute kidney injury (HCC) Adverse effect of anesthesia aspirated when had colonoscopy Anorexia Anxiety Aortic heart murmur Asthma Chest pain 11/17/2018 ER Visit Elevated blood sugar GERD (gastroesophageal reflux disease) Hearing loss of left ear Hyperparathyroidism (HCC) Hyperthyroidism Impacted cerumen Insomnia Migraine Normocytic anemia Old myocardial infarction Osteoporosis Other iron deficiency anemia Parathyroid adenoma PONV (postoperative nausea and vomiting) scop patch worked well Positive PPD Prediabetes Sciatica Scoliosis of lumbosacral spine, unspecified scoliosis type Seasonal allergies Skin lesion ST elevation myocardial infarction (STEMI) (HCC) 12/2014 Syncope and collapse Tinnitus UTI (urinary tract infection) Wears dentures Weight loss PAST SURGICAL HISTORY Past Surgical History: Procedure Laterality Date CARPAL TUNNEL RELEASE Bilateral CATARACT REMOVAL SECTION x 2 CHOLECYSTECTOMY COLONOSCOPY [address] Ramírez LAMINECTOMY PARATHYROIDECTOMY 07/07/2017 [facility] TONSILLECTOMY AND ADENOIDECTOMY HOME MEDS: Prior to Admission medications Medication Sig Taking? acetaminophen (TYLENOL) 325 mg tablet Take 2 tablets by mouth every four hours as needed. acyclovir (ZOVIRAX) 400 MG tablet calcium carbonate (TUMS) 500 mg chewable tablet Take 1 tablet by mouth Daily. Calcium Citrate-Vitamin D (CITRACAL/VITAMIN D) 250-200 MG-UNIT TABS 2 tablets two times chang ly cholecalciferol (CHOLECALCIFEROL) 1000 units TABS Take 2,000 Units by mouth once daily. Cholecalciferol (VITAMIN D-3 PO) Take 2,000 Units by mouth daily. Cholecalciferol (VITAMIN D3) 2000 UNITS CAPS Take 2,000 Units by mouth Daily. ciprofloxacin (CIPRO) 500 mg tablet clonazePAM (KLONOPIN) 0.5 mg tablet one tablet at bedtime and twice during the day as neede d coenzyme Q10 10 MG CAPS Take by mouth. coenzyme Q10 100 MG CAPS Take 100 mg by mouth daily famotidine (PEPCID) 40 MG tablet Take 40 mg by mouth daily gabapentin (NEURONTIN) 300 mg capsule Take 300 mg by mouth 3 times daily. Ibuprofen (ADVIL) 200 MG CAPS Take 200 mg by mouth as needed. Multiple Vitamins-Minerals (MULTIVITAMIN WITH MINERALS) tablet Take 1 tablet by mouth daily with breakfast. Multiple Vitamins-Minerals (MULTIVITAMIN WITH MINERALS) tablet Take 1 tablet by mouth once daily. multivitamin (THERAGRAN) per tablet daily omeprazole (PRILOSEC) 10 mg capsule Take 2 capsules by mouth once daily. omeprazole (PRILOSEC) 20 mg capsule Take 20 mg by mouth 2 times daily. Oral Electrolytes (EMERGEN-C ELECTRO MIX PO) Take 4 oz by mouth daily pantoprazole (PROTONIX) 40 mg tablet Take 40 mg by mouth every morning before breakfast. Pseudoephedrine HCl (SUDAFED PO) TABS sodium sulfate-potassium sulfate-magnesium sulfate (SUPREP BOWEL PREP KIT) oral solution Ta ke 177 mLs by mouth See Admin Instructions. Drink one bottle at 4PM day prior to procedure a nd 2ND bottle at 6AM day of procedure. Vit G-Yhjytyhoaoyznsb-Tbww Hip (VITAMIN C & D3/RASHAWN HIPS PO) Take 2 tablets by mouth daily ALLERGIES Allergies Allergen Reactions Tramadol Swelling and Other (See Comments) Blisters Fluoxetine Nausea And Vomiting and Unknown serotonin syndrome?? Prednisone Hives Serotonin Reuptake Inhibitors (Ssris) Anxiety and Rash Sertraline Anxiety, Rash, Other (See Comments) and Unknown Reaction: serotonin syndrome?? Zoledronic Acid Nausea And Vomiting Codeine Rash ASA CLASSIFICATION: 3 EXAMINATION: Blood pressure 116/75, pulse 96, temperature 36.1 C (97 F), temperature source Temporal , resp. rate 16, height 1.676 m (5' 6"), weight 52.5 kg (115 lb 11.9 oz), SpO2 97 %, not cur rently . General: Alert and orientedx3 Throat: Normal Lungs: Clear Heart: Regular rate and rhythm with out significant murmur Abdomen: flat, normal bowel sounds. Soft, nontender 1. Available medical records have been reviewed. [facility] 03/11 2. Medication list reviewed. IMPRESSION: weight loss now stabilized and partially reversed positive ColoCARE history o f reflux Patient appropriate for procedures. PLAN: 1. Proceed with procedure as stated above with propofol sedation/analgesia due to allergy t o narcotics, anxiety benzodiazepine use and previous difficulty with sedation. 2. Procedure, indications, risks and alternatives explained to patient/family and they agre ed to proceed and consent was signed. 3. Patient will be reevaluated immediately (1-2 minutes) before sedation administration and approved for the plan as stated above. Electronically Signed by: Zachary Ramírez MD 05/31/2019 [facility] Portions of this chart may have been created with [employer] voice recognition software. Occasi onal wrong-word or sound-alike substitutions may have occurred due to the inherent christian itations of voice recognition software. Please read the chart carefully and recognize, using context, where these substitutions have occurred documented in this encounter Miscellaneous Notes Op Note - Zachary Ramírez MD - 05/31/2019 1:32 PM PDTUpper endoscopy was remarkable for ve ry patulous EG junction at approximately 32 cm. There appeared to be a hiatal hernia approx imately 4 cm in length. There were multiple PPI polyps which were large in the cardia and b valencia of the stomach. Sole imaging was used to identify a distal esophageal biopsies. Biops ies of the PPI polyps were also obtained as were H. pylori biopsy. Duodenal mucosa appeared normal Colonoscopy was a difficult exam due to marked redundancy and associated tortuosity of the colon. There is a small polyp removed from the sigmoid colon and submitted to pathology. P atient be discharged with post polypectomy instructions follow-up frequency I suspect in 5 y ears -C Instructions Pr ovation - Zachary Ramírez MD - 05/31/2019 12:40 PM PDTDischarge Instructions for Upper Endos copy Patient: Joselyn Leung : 1945 Acct: [id number] Exam Date: Friday, May 31, 2019 Doctor: Zachary Ramírez MD The chances of difficulty following this procedure are minimal. The following instructions will assist you in your recovery. 1. Do Not eat or drink anything for 1 hour. Try sips of water first. If tolerated, resume your regular diet or one recommended by your physician. 2. Do not drive, operate machinery, make critical decisions, or do activities that require coordination or balance for 24 hours. 3. You may experience a sore throat for 24 - 48 hours. You may use throat lozenges or gargle with warm salt water to relieve the discomfort. 4. Because air was put into your stomach druing the procedure, you may experience some belching. 5. Do not use any medication containing aspirin for 10 days, unless otherwise directed by your physician. 6. Sometimes the medications given to you druing the exam can aggravate the veins. The chemical irritation can cause inflammation or pain along the arm with redness, swelling and warmth. This does not mean there is an infection. You can treat the affected area by applying warm, wet compresses (towels) 4 times a day for 20 minutes at a time until inflammation is resolved 7. Report to your doctor: Chills and/or fever over 100 Persistent vomiting or vomiting with blood/nasal regurgitation Severe abdominal pain, other than gas cramps Severe chest pain Black, tarry stools You may reach your physician at Work: . If unable to reach your physician, call [facility] Emergency Department at Ext. [phone] Your doctor recommends these additional instructions: You have a contact number available for emergencies. The signs and symptoms of potential delayed complications were discussed with you. You may return to normal activities tomorrow. Written discharge instructions were provided to you. You are being discharged to home. Eat a mechanical soft diet for three days. Continue your present medications. Do not take any aspirin, ibuprofen (including Advil, Motrin or Nuprin), naproxen (including Aleve), or any other non-steroidal anti-inflammatory drugs for 7 days after your polyp removal. Follow an antireflux regimen indefinitely. This includes: - Do not lie down for at least 3 to 4 hours after meals. - Raise the head of the bed 4 to 6 inches. - Decrease excess weight. - Avoid citrus juices and other acidic foods, alcohol, chocolate, mints, coffee and other caffeinated beverages, carbonated beverages, fatty and fried foods. - Avoid tight-fitting clothing. - Avoid cigarettes and other tobacco products. We are waiting for your pathology results. Your physician has recommended a repeat upper endoscopy for surveillance based on pathology results. Telephone your GI clinic for pathology results in one week. These instructions have been explained to the patient and/or escort. A copy has been given to the patient/escort. Nurse Signature Patient Signature Escort Signature Date Zachary Ramírez MD 05/31/2019 1:39:54 PM This report has been signed electronically.Electronically signed by Zachary Ramírez MD at 1:40 PM PDTD-C Instructions Provation - Zachary Ramírez MD - 05/31/2019 12:39 PM P DTDischarge Instructions for Colonoscopy Exams Patient: Joselyn Leung : 1945 Acct: [id number] Exam Date: Friday, May 31, 2019 Doctor: Zachary Ramírez MD You have had an examination of the gastrointestinal tract. The chances of difficulty following this procedure are minimal. The following instructions will assist you in your recovery. ACTIVITIES: Rest quietly until sedation wears off. DO NOT drive a motor vehicle or operate machinery for 24 hours after sedation. Be cautious making critical decisions for 24 hours after sedation. DIET: If throat has been sprayed, do not eat or drink for 1 hour after. Start with a swallow of tap water, if you experience any lack of sensation in your throat, wait another 30 - 60 minutes and start with water again. Once swallowing has returned to normal you may resume your usual diet unless otherwise instructed by your physician. DISCOMFORT: If you had a bowel exam, you may have some abdominal discomfort from the air put into your bowel during the exam. Moving about will help you pass this air. Sometimes the medications given to you during the exam can aggravate the veins. The chemical irritation can cause inflammation or pain along the arm with redness, swelling and warmth. This does not mean there is an infection. You can treat the affected area by applying warm,wet compresses (towels) 4 times a day for 20 minutes at a time until inflammation is resolved. REPORT TO YOUR DOCTOR: Unusual abdominal pain Chest pain or unusual shortness of breath Shoulder pain Nausea, vomiting Fever over 100 degrees, chills Signs of rectal bleeding (red or black stools) Any concern you have resulting from procedure You may reach your physician at Work: . If unable to reach your physician, call [facility] Emergency Department at Ext. [phone] Your doctor recommends these additional instructions: You have a contact number available for emergencies. The signs and symptoms of potential delayed complications were discussed with you. You may return to normal activities tomorrow. Written discharge instructions were provided to you. You are being discharged to home. Eat a mechanical soft diet for three days. Continue your present medications. Do not take any aspirin, ibuprofen (including Advil, Motrin or Nuprin), naproxen (including Aleve), or any other non-steroidal anti-inflammatory drugs for 7 days after your polyp removal. Your physician has recommended a repeat colonoscopy for surveillance based on pathology results. Return to your primary care physician as previously scheduled. Telephone your GI clinic for pathology results in one week. Telephone your GI clinic if symptoms are present. These instructions have been explained to the patient and/or escort. A copy has been given to the patient/escort. Nurse Signature Patient Signature Escort Signature Date Zachary Ramírez MD 05/31/2019 1:43:43 PM This report has been signed electronically.Electronically signed by Zachary Ramírez MD at 1:43 PM PDTdocumented in this encounter Plan of Treatment Not on filedocumented as of this encounter Procedures + +--------+ + + + | Procedure Name | Priori | Date/Time | Associated Diagnosis | Comments | | | ty | | | | + +--------+ + + + | HELICOBACTER PYLORI | Routin | 05/31/2019 | | Results for this | | BIOPSY | e | 12:53 PM | | procedure are in the | | | | PDT | | results section. | + +--------+ + + + | COLONOSCOPY | | 05/31/2019 | Gastroesophageal | | | | | 12:45 PM | reflux disease, | | | | | PDT | esophagitis presence | | | | | | not specified | | | | | | Weight loss, | | | | | | unintentional | | | | | | Insomnia, | | | | | | unspecified type Hx | | | | | | of aspiration | | | | | | pneumonitis | | | | | | Positive colorectal | | | | | | cancer screening | | | | | | using Cologuard test | | + +--------+ + + + | EGD | | 05/31/2019 | Gastroesophageal | | | | | 12:45 PM | reflux disease, | | | | | PDT | esophagitis presence | | | | | | not specified | | | | | | Weight loss, | | | | | | unintentional | | | | | | Insomnia, | | | | | | unspecified type Hx | | | | | | of aspiration | | | | | | pneumonitis | | | | | | Positive colorectal | | | | | | cancer screening | | | | | | using Cologuard test | | + +--------+ + + + | EGD | Routin | 05/31/2019 | | Results for this | | | e | 12:40 PM | | procedure are in the | | | | PDT | | results section. | + +--------+ + + + | COLONOSCOPY | Routin | 05/31/2019 | | Results for this | | | e | 12:39 PM | | procedure are in the | | | | PDT | | results section. | + +--------+ + + + | SURGICAL PATHOLOGY | Routin | 05/31/2019 | | Results for this | | EXAM | e | 12:00 AM | | procedure are in the | | | | PDT | | results section. | + +--------+ + + + | LABS - EXTERNAL SCAN | | 04/28/2019 | | Results for this | | | | 12:00 AM | | procedure are in the | | | | PDT | | results section. | + +--------+ + + + documented in this encounter Results Helicobactor pylori Biopsy (05/31/2019 12:53 PM PDT) + + + + + + | Component | Value | Ref Range | Performed | Pathologist | | | | | At | Signature | + + + + + + | Helicobacte | Negative | Negative | [facility] | | | r pylori Ag | | | [facility] - | | | | | | LABORATORY | | + + + + + + + + | Specimen | + + | Tissue - Specimen | | from stomach | | (specimen) | + + + + + + + | Performing | Address | City/State/Zipcode | Phone Number | | Organization | | | | + + + + + | [facility] | [address] | [place] | [phone] | | [facility] | | [id number] | | | - LABORATORY | | | | + + + + + EGD (05/31/2019 12:40 PM PDT) + + | Specimen | + + | | + + + + -+ | Narrative | Performed At | + + -+ | | [facility] | | GastroenterologyPatient Name: Joselyn Mckeon Date: 05/31/2019 | [facility] | | 12:40 PMMRN: [id number] #: [id number] of : | | | 7Admit Type: AmbulatoryAge: 73Room: Endo Room 1Gender: | | | FemaleNote Status: FinalizedAttending MD: Zachary Ramírez , | | | MDProcedure: Upper GI endoscopyIndications: | | | Esophageal reflux, Follow-up of esophageal refluxProviders: | | | Zachary Ramírez MD, Juana Peng RN, Jason Martins, | | | [facility], Raymond Madrigal MD (Anesthesia | | | Staff)Medicines: Propofol per AnesthesiaComplications: | | | No immediate complications. Estimated blood loss: | | | Minimal.Procedure: Pre-Anesthesia Assessment: - Prior to | | | the procedure, a History and Physical was performed, and | | | patient medications, allergies and sensitivities were reviewed. The | | | patient's tolerance of previous anesthesia was reviewed. - | | | Prior to the procedure, a History and Physical was performed, and | | | patient medications and allergies were reviewed. The patient is | | | competent. The risks and benefits of the procedure and the | | | sedation options and risks were discussed with the patient. All | | | questions were answered and informed consent was obtained. | | | Patient identification and proposed procedure were verified by | | | the physician, the nurse, the anesthesiologist and the | | | husbandry technician in the endoscopy suite. Mental Status Examination: | | | alert and oriented. Airway Examination: normal oropharyngeal | | | airway and neck mobility and Mallampati Class II (the uvula but | | | not tonsillar pillars visualized). Respiratory Examination: | | | clear to auscultation. CV Examination: normal. Prophylactic | | | Antibiotics: The patient does not require prophylactic | | | antibiotics. Prior Anticoagulants: The patient has taken no | | | previous anticoagulant or antiplatelet agents. ASA Grade | | | Assessment: III - A patient with severe systemic disease. After | | | reviewing the risks and benefits, the patient was deemed in | | | satisfactory condition to undergo the procedure. The anesthesia | | | plan was to use monitored anesthesia care (MAC). Immediately | | | prior to administration of medications, the patient was re-assessed | | | for adequacy to receive sedatives. The heart rate, respiratory | | | rate, oxygen saturations, blood pressure, adequacy of pulmonary | | | ventilation, and response to care were monitored throughout | | | the procedure. The physical status of the patient was | | | re-assessed after the procedure. - After reviewing the risks and | | | benefits, the patient was deemed in satisfactory condition to | | | undergo the procedure. - Using IV propofol under the supervision | | | of an anesthesiologist was determined to be medically | | | necessary for this procedure based on age 65 or older, severe | | | comorbidity (greater than ASA Grade II), increased risk of | | | airway obstruction (oral, facial, neck, jaw abnormalities), patient's | | | history of problems with anesthesia and patient's anxiety. | | | - Immediately prior to administration of medications, the patient | | | was re-assessed for adequacy to receive sedatives. - The | | | heart rate, respiratory rate, oxygen saturations, blood pressure, | | | adequacy of pulmonary ventilation, and response to care were | | | monitored throughout the procedure. - The physical status | | | of the patient was re-assessed after the procedure. After | | | obtaining informed consent, the endoscope was passed under direct | | | vision. Throughout the procedure, the patient's blood pressure, | | | pulse, and oxygen saturations were monitored continuously. The | | | Endoscope was introduced through the mouth, and advanced to the | | | third part of duodenum. The upper GI endoscopy was | | | accomplished without difficulty. The patient tolerated the | | | procedure well.Findings: The cricopharyngeus, upper third of the | | | esophagus, middle third of the esophagus and lower third of | | | the esophagus were normal. A gaping lower esophageal sphincter | | | was found. The Z-line was irregular and was found 32 cm from the | | | incisors. Imaging was performed using the [employer] | | | Chromo Endoscopy (FICE) system to visualize the esophageal | | | mucosa. Biopsies were taken with a cold forceps for histology. | | | Verification of patient identification for the specimen was | | | done. Estimated blood loss was minimal. A 6 cm hiatal hernia was | | | found. The proximal extent of the gastric folds (end of | | | tubular esophagus) was 32 to 38 cm from the incisors. The hiatal | | | narrowing was 32 cm from the incisors. The Z-line was 32 cm from | | | the incisors. Multiple large sessile polyps with no | | | bleeding and no stigmata of recent bleeding were found in the | | | cardia and in the gastric fundus. Biopsies were taken with a | | | cold forceps for histology. Verification of patient | | | identification for the specimen was done. Estimated blood loss was | | | minimal. Localized mild inflammation characterized by | | | friability and granularity was found in the gastric antrum. | | | Biopsies were taken with a cold forceps for Helicobacter pylori | | | testing using CLOtest. Verification of patient identification | | | for the specimen was done. Estimated blood loss was minimal. | | | The duodenal bulb, first portion of the duodenum, second portion | | | of the duodenum, area of the papilla and third portion of the | | | duodenum were normal. The retroflexed view confirmed | | | previous findings,Impression: - Normal cricopharyngeus, upper | | | third of esophagus, middle third of esophagus and lower third | | | of esophagus. - Gaping lower esophageal sphincter. - | | | Z-line irregular, 32 cm from the incisors. Biopsied. - 6 cm | | | hiatal hernia. - Multiple gastric polyps. Biopsied. - | | | Gastritis. Biopsied. - Normal duodenal bulb, first portion of | | | the duodenum, second portion of the duodenum, area of the | | | papilla and third portion of the duodenum. - The retroflexed | | | view confirmed previous findings,Recommendation: - Patient has a | | | contact number available for emergencies. The signs and | | | symptoms of potential delayed complications were discussed with the | | | patient. Return to normal activities tomorrow. Written discharge | | | instructions were provided to the patient. - Discharge | | | patient to home (ambulatory). - Mechanical soft diet for 3 days. | | | - Continue present medications. - No aspirin, ibuprofen, | | | naproxen, or other non-steroidal anti-inflammatory drugs for 7 | | | days after polyp removal. - Follow an antireflux regimen | | | indefinitely. - Await pathology results. - Repeat upper | | | endoscopy for surveillance based on pathology results. - | | | Telephone GI clinic for pathology results in 1 week.Zachary Ramírez | | | 05/31/2019 1:39:54 PMThis report has been signed | | | electronically.Number of Addenda: 0Note Initiated On: 05/31/2019 12:40 | | | PMScope In: 12:51:54 PMScope Out: 1:00:22 PM [facility] | | | [facility], [address] [place] [id number] | | | [phone] | | | - Continue present medications. | | | - No aspirin, ibuprofen, naproxen, or other non-steroidal | | | anti-inflammatory drugs for 7 days after polyp removal. | | | - Follow an antireflux regimen indefinitely. | | | - Await pathology results. | | | - Repeat upper endoscopy for surveillance based on pathology results. | | | - Telephone GI clinic for pathology results in 1 week. | | |Zachary Ramírez MD | | |05/31/2019 1:39:54 PM | | |This report has been signed electronically. | | |Number of Addenda: 0 | | |Note Initiated On: 05/31/2019 12:40 PM | | |Scope In: 12:51:54 PM | | |Scope Out: 1:00:22 PM | | | [facility], [address] [place] [address] | | | [id number] | | + + -+ + +---------+ + + | Performing | Address | City/State/Zipcode | Phone Number | | Organization | | | | + +---------+ + + | [facility] | | | | + +---------+ + + COLONOSCOPY (05/31/2019 12:39 PM PDT) + + | Specimen | + + | | + + + + -+ | Narrative | Performed At | + + -+ | | [facility] | | GastroenterologyPatient Name: Joselyn MckeonWalker Date: 05/31/2019 | [facility] | | 12:39 PMMRN: [id number] #: [id number] of : | | | 1945dmit Type: AmbulatoryAge: 73Room: Endo Room 1Gender: | | | FemaleNote Status: FinalizedAttending MD: Zachary Ramírez , | | | MDProcedure: ColonoscopyIndications: Positive | | | Cologuard testProviders: Zachary Ramírez MD, [place] | | | VIV Peng, Jason Martins, [facility], Raymond | | | Mary Madrigal MD (Anesthesia Staff)Medicines: Propofol per | | | AnesthesiaComplications: No immediate complications. Estimated | | | blood loss: None.Procedure: Pre-Anesthesia Assessment: - | | | Prior to the procedure, a History and Physical was performed, and | | | patient medications, allergies and sensitivities were reviewed. The | | | patient's tolerance of previous anesthesia was reviewed. | | | - Prior to the procedure, a History and Physical was performed, and | | | patient medications and allergies were reviewed. The patient is | | | competent. The risks and benefits of the procedure and the | | | sedation options and risks were discussed with the patient. All | | | questions were answered and informed consent was obtained. | | | Patient identification and proposed procedure were verified. | | | Prophylactic Antibiotics: The patient does not require | | | prophylactic antibiotics. Prior Anticoagulants: The patient has | | | taken no previous anticoagulant or antiplatelet agents. ASA | | | Grade Assessment: III - A patient with severe systemic disease. After | | | reviewing the risks and benefits, the patient was deemed in | | | satisfactory condition to undergo the procedure. The anesthesia | | | plan was to use monitored anesthesia care (MAC). Immediately | | | prior to administration of medications, the patient was | | | re-assessed for adequacy to receive sedatives. The heart rate, | | | respiratory rate, oxygen saturations, blood pressure, adequacy | | | of pulmonary ventilation, and response to care were monitored | | | throughout the procedure. The physical status of the patient | | | was re-assessed after the procedure. - After reviewing the risks | | | and benefits, the patient was deemed in satisfactory condition | | | to undergo the procedure. - Using IV propofol under the | | | supervision of an anesthesiologist was determined to be | | | medically necessary for this procedure based on age 65 or | | | older, severe comorbidity (greater than ASA Grade II), patient's | | | history of problems with anesthesia and patient's anxiety. - | | | Immediately prior to administration of medications, the patient was | | | re-assessed for adequacy to receive sedatives. - The heart | | | rate, respiratory rate, oxygen saturations, blood pressure, | | | adequacy of pulmonary ventilation, and response to care were monitored | | | throughout the procedure. - The physical status of the | | | patient was re-assessed after the procedure. After I obtained | | | informed consent, the scope was passed under direct vision. | | | Throughout the procedure, the patient's blood pressure, pulse, | | | and oxygen saturations were monitored continuously. The Colonoscope | | | was introduced through the anus and advanced to the cecum, | | | identified by the appendiceal orifice, ileocecal valve and | | | palpation. The colonoscopy was technically difficult and | | | complex due to a redundant colon and a tortuous colon. | | | Successful completion of the procedure was aided by using | | | manual pressure and straightening and shortening the scope to | | | obtain bowel loop reduction. The patient tolerated the procedure well. | | | The quality of the bowel preparation was excellent.Findings: | | | The perianal and digital rectal examinations were normal. | | | Pertinent negatives include normal sphincter tone and no | | | palpable rectal lesions. The colon (entire examined portion) was | | | grossly redundant. The sigmoid colon and splenic flexure were | | | moderately tortuous. A small polyp was found in the mid sigmoid | | | colon. The polyp was sessile. The polyp was removed with a hot | | | snare. Resection and retrieval were complete. Verification of | | | patient identification for the specimen was done. Estimated | | | blood loss: none. The exam was otherwise without abnormality. | | | The retroflexed view of the distal rectum and anal verge was | | | normal and showed no anal or rectal abnormalities.Impression: | | | - Redundant colon. - Tortuous colon. - One small | | | polyp in the mid sigmoid colon, removed with a hot snare. | | | Resected and retrieved. - The examination was otherwise normal. | | | - The distal rectum and anal verge are normal on retroflexion | | | view.Recommendation: - Patient has a contact number available | | | for emergencies. The signs and symptoms of potential delayed | | | complications were discussed with the patient. Return to normal | | | activities tomorrow. Written discharge instructions were | | | provided to the patient. - Discharge patient to home | | | (ambulatory). - Mechanical soft diet for 3 days. - | | | Continue present medications. - No aspirin, ibuprofen, naproxen, | | | or other non-steroidal anti-inflammatory drugs for 7 days | | | after polyp removal. - Repeat colonoscopy for surveillance based | | | on pathology results. - Return to primary care physician as | | | previously scheduled. - Telephone GI clinic for pathology | | | results in 1 week. - Telephone GI clinic if symptomatic.Zachary Martini | | | MD Desiree05/31/2019 1:43:43 PMThis report has been signed | | | electronically.Number of Addenda: 0Note Initiated On: 05/31/2019 12:39 | | | PMScope Withdrawal Time: 0 hours 16 minutes 1 second Scope In: 1:02:29 | | | PMScope Out: 1:28:51 PM [facility], [facility] | | | [place] [address] | | | - Continue present medications. | | | - No aspirin, ibuprofen, naproxen, or other non-steroidal | | | anti-inflammatory drugs for 7 days after polyp removal. | | | - Repeat colonoscopy for surveillance based on pathology results. | | | - Return to primary care physician as previously scheduled. | | | - Telephone GI clinic for pathology results in 1 week. | | | - Telephone GI clinic if symptomatic. | | |Zachary Ramírez MD | | |05/31/2019 1:43:43 PM | | |This report has been signed electronically. | | |Number of Addenda: 0 | | |Note Initiated On: 05/31/2019 12:39 PM | | |Scope Withdrawal Time: 0 hours 16 minutes 1 second | | |Scope In: 1:02:29 PM | | |Scope Out: 1:28:51 PM | | | [facility], [address] [place], [place] | | | [address] | | + + -+ + +---------+ + + | Performing | Address | City/State/Zipcode | Phone Number | | Organization | | | | + +---------+ + + | [facility] | | | | + +---------+ + + Surgical Pathology Exam (05/31/2019 12:00 AM PDT) + + | Specimen | + + | | + + + + + | Narrative | Performed At | + + + | SPECIMEN(S): A GASTRIC POLYP SPECIMEN(S): B DISTAL ESOPHAGEAL | [facility] | | BIOPSY SPECIMEN(S): C SIGMOID POLYP SPECIMEN SOURCE: A. GASTRIC | [facility] | | POLYP B. DISTAL ESOPHAGEAL BIOPSY C. SIGMOID POLYP CLINICAL | | | HISTORY: K21.9 (gastroesophageal reflux disease without esophagitis), | | | R63.4 (abnormal weight loss), G47.00 (Insomnia, unspecified), Z87.09 | | | (Personal history of other diseases of the respiratory system), R19.5 | | | (other fecal abnormalities) MICROSCOPIC DESCRIPTION: Histologic | | | sections of all submitted blocks are examined by light microscopy. | | | These findings, together with the gross examination, support the | | | pathologic diagnosis. FINAL PATHOLOGIC DIAGNOSIS: A. Stomach, | | | gastric polyp, biopsy: - Fragments of fundic gland polyp(s) with | | | features suggestive of proton pump inhibitor effect. B. Esophagus, | | | distal, biopsy: - Fragments of squamocolumnar junction mucosa | | | with chronic inflammation and reactive epithelial changes. - | | | Negative for unequivocal intestinal metaplasia in examined sections. | | | - Negative for significantly increased intraepithelial | | | eosinophils. C. Sigmoid polyp, biopsy: - Polypoid fragment of | | | colonic mucosa with foci of adenomatous change, consistent with early | | | tubular adenoma. CLR:[facility]:C2NR GROSS DESCRIPTION: Three | | | specimens are received in three containers, labeled "TI." A. The | | | specimen, labeled "TI, gastric polyp BX," is received in formalin and | | | consists of four stanley-white soft tissue fragments ranging from 0.2-0.3 | | | cm in greatest dimension. The specimen is entirely submitted in | | | cassette (A1). B. The specimen, labeled "TI, distal esophageal | | | BX," is received in formalin and consists of three stanley-white soft | | | tissue fragments ranging from 0.1-0.2 cm in greatest dimension. The | | | specimen is entirely submitted in cassette (B1). C. The specimen, | | | labeled "TI, sigmoid polyp," is received in formalin and consists of | | | a 0.4 cm greatest dimension stanley-pink and polypoid soft tissue | | | fragment. The specimen is entirely submitted in cassette (C1). AR | | | (under the direct supervision of a pathologist) The Gross | | | Description was prepared using a voice recognition system. The | | | report was reviewed for accuracy; however, sound-alike word errors, | | | addition and/or deletions may occur. If there is any question about | | | this report, please contact Client Services. PERFORMING | | | LABORATORY: The technical component was performed by [facility] | | | [employer] [address] (Orthopedic Shoes Salesperson: | | | Joseline Soni MD; CLIA# [id number]). Professional interpretation was | | | performed by [facility], [facility] | | | [address] [address] (Orthopedic Shoes Salesperson: | | | Cesar Johnson M.D.; CLIA#: [id number]). | | | Diagnostician: Cesar Johnson MD Pathologist Electronically | | | Signed 06/01/2019 | | + + + + +---------+ + + | Performing | Address | City/State/Zipcode | Phone Number | | Organization | | | | + +---------+ + + | [facility] | | | | | [facility] | | | | + +---------+ + + LABS - EXTERNAL SCAN (04/28/2019 12:00 AM PDT) + + + | Narrative | Performed At | + + + | Ordered by an | | | unspecified provider. | | + + + documented in this encounter Visit Diagnoses + + | Diagnosis | + + | Gastroesophageal reflux disease, esophagitis presence not specified | + + | Weight loss, unintentional Loss of weight | + + | Insomnia, unspecified type | + + | Hx of aspiration pneumonitis Personal history of other diseases of respiratory system | + + | Positive colorectal cancer screening using Cologuard test | + + | Osteoporosis, severe Osteoporosis, unspecified | + + | Prediabetes Other abnormal glucose | + + | Thrombocytopenia, unspecified (HCC) Thrombocytopenia, unspecified | + + | Chronic renal insufficiency Chronic kidney disease, unspecified | + + | Migraines Migraine, unspecified, without mention of intractable migraine without | | mention of status migrainosus | + + | 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 | + + documented in this encounter Admitting Diagnoses + + | Diagnosis | + + | Gastroesophageal reflux disease, esophagitis presence not specified | + + | Weight loss, unintentional Loss of weight | + + | Insomnia, unspecified type | + + | Hx of aspiration pneumonitis Personal history of other diseases of respiratory system | + + | Positive colorectal cancer screening using Cologuard test | + + documented in this encounter Administered Medications + +--------+---------+------+------+------+ | Medication Order | MAR | Action | Dose | Rate | Site | | | Action | Date | | | | + +--------+---------+------+------+------+ + +---+ | albuterol-ipratropium 2.5-0.5 | | | mg/3 mL nebulizer solution 3 mL | | | 3 mL, Nebulization, ONCE PRN, | | | Wheezing, Shortness of Breath, | | | Starting 05/31/19 at 1339, For | | | 1 dose, Recovery/Phase I | | + +---+ | | | + +---+ + +---------+ +---+---+---+ | lactated ringers (LR) infusion | New Bag | 05/31/20 | | | | | at 100 mL/hr, Intravenous, | | 19 12:20 | | | | | CONTINUOUS, Starting 05/31/19 | | PM PDT | | | | | at 1115, Pre-op | | | | | | + +---------+ +---+---+---+ + +---+ | | | + +---+ | ondansetron (ZOFRAN ODT) | | | disintegrating tablet 4 mg 4 mg, | | | Oral, EVERY 6 HOURS PRN, Nausea, | | | Vomiting, Starting 05/31/19 | | | at 1339, First line agent, | | | Post-op/Phase II | | + +---+ | | | + +---+ | ondansetron (ZOFRAN) injection | | | 4 mg 4 mg, Oral, EVERY 4 HOURS | | | PRN, Nausea, Vomiting, Starting | | | 05/31/19 at 1339, | | | Recovery/Phase I | | + +---+ | | | + +---+ | ondansetron (ZOFRAN) injection | | | 4 mg 4 mg, Intravenous, ONCE | | | PRN, Nausea, Starting 05/31/19 | | | at 1339, For 1 dose, | | | Recovery/Phase I | | + +---+ | | | + +---+ | ondansetron (ZOFRAN) injection | | | 4 mg 4 mg, Intravenous, EVERY 6 | | | HOURS PRN, Nausea, Vomiting, | | | Starting 05/31/19 at 1339, | | | First line agent. Use PO option | | | unless NPO status or unable to | | | tolerate., Post-op/Phase II | | + +---+ | | | + +---+ + +---------+ +---------+---+ + | scopolamine (TRANSDERM-SCOP) 1 | Patch | 05/31/20 | 1 patch | | Ear-Behi | | mg/3 days 1 patch 1 patch, | Applied | 19 12:52 | | | nd Right | | Transdermal, ONCE PRN, PRN for | | PM PDT | | | | | adult patients with history of | | | | | | | PONV. Hold for patients with | | | | | | | glaucoma, dementia, altered | | | | | | | mental status, or history of | | | | | | | allergy to Scopolamine. Apply | | | | | | | to mastoid process behind ear., | | | | | | | Starting 05/31/19 at 1250, For | | | | | | | 1 dose, PRN for adult patients | | | | | | | with history of PONV. Hold for | | | | | | | patients with glaucoma, dementia, | | | | | | | altered mental status, or | | | | | | | history of allergy to | | | | | | | Scopolamine. Apply to mastoid | | | | | | | process behind ear. Each patch is | | | | | | | designed to deliver 1 mg over 3 | | | | | | | days. DO NOT CUT patch., Pre-op | | | | | | + +---------+ +---------+---+ + +---+---+ | | | +---+---+ documented in this encounter
--- OUTSIDE RECORDS SUMMARY | ~2020-05-21 | XMS | Encounter Summary ---
Demographics + + + | Address | [address] | | | [place] [address] | + + + | Home Phone | | + + + | Preferred Language | Unknown | + + + | Marital Status | Single | + + + | Yarsanism Affiliation | [id number] | + + + | Race | White | + + + | Ethnic Group | Not or | + + + Author + + + | Author | [facility] | | | and [place] | + + + | Organization | [facility] | | | [...] Team Providers + +------+ + | Care Civil Engineering Draftsperson Name | Role | Phone | + +------+ + | Mick Malik MD | PCP | | + +------+ + Encounter Details +--------+ + + + + | Date | Type | Department | Care Team | Description | +--------+ + + + + | 03/26/ | Orders Only | [facility] | Giorgi Javier, | | | 2015 | | [facility]ARDI[facility] [place] | [address] | | | | | [address] | [place] [address] | | | | | [address] | [phone] | | | | | [place], [place] | | | | | | [address] | | | | | | [phone] | | | +--------+ + + + [...] | + +--------+ + + + | NM MYOCARDIAL | Routin | 03/26/2015 | | Results for this | | PERFUSION MULT SPECT | e | 3:32 PM | | procedure are in the | | | | PDT | | results section. | + +--------+ + + + documented in this encounter Results NM Myocardial Perfusion Mult SPECT (03/26/2015 3:32 PM PDT) + + | Specimen | + + | | + + + + + | Narrative | Performed At | + + + | [facility] CARDIOLOGY Nuclear Treadmill Stress Test | | | INDICATION FOR TEST: Coronary artery disease. RISK FACTORS: | | | stress. PROCEDURE: Prashanth protocol. Rest dose- 10.2 mCi of Tc-99 | | | Myoview given intravenously. Stress dose- At 03:02 minutes 28.3 mCi of | | | Tc-99 Myoview given intravenously. Effective Dose Equivalent: 13.3 | | | mSv. Predicted exercise time was 4.5 minutes. Predicted Maximum HR: | | | 152. Predicted 85% Max HR: 129. REST DATA: Heart Rate: 74 bpm, | | | BP: 135/89. ECG: Sinus rhythm. Poor R wave progression. STRESS | | | DATA: Exercise Time: 04:46 minutes, Heart Rate achieved: 164 bpm, Max | | | BP: 177/79, RPP: 44054. METS: 7.00. The patient walked to 107% MPHR. | | | Symptoms none given The test was terminated due to patient being | | | winded, ECG: No arrhythmias. No ischemia. EJECTION FRACTION: REST | | | EF: 73% STRESS EF: 80%. IMAGING: The quality images are good. No | | | artifacts are seen. SPECT images show no significant rest or stress | | | perfusion abnormality. Gated images show normal wall motion and normal | | | systolic thickening. Post stress ejection fraction 80%.. | | | IMPRESSIONS: Average exercise time No exercise-induced arrhythmias, | | | ischemia, or symptoms No significant rest or stress perfusion | | | abnormality Normal LV systolic function No comparison studies | | | available. Giorgi Javier MD, FACC, FACP, FASNC | | | | | + + + + + | Procedure Note | + + | Flavio, Rad Conversion - 04/21/2019 9:32 PM [facility] CARDIOLOGYNuclear | | Treadmill Stress Test INDICATION FOR TEST: Coronary artery disease. RISK FACTORS: | | stress. PROCEDURE: Prashanth protocol. Rest dose- 10.2 mCi of Tc-99 Myoview given | | intravenously. Stress dose- At 03:02 minutes 28.3 mCi of Tc-99 Myoview given | | intravenously. Effective Dose Equivalent: 13.3 mSv. Predicted exercise time was 4.5 | | minutes. Predicted Maximum HR: 152. Predicted 85% Max HR: 129. REST DATA: Heart Rate: | | 74 bpm, BP: 135/89. ECG: Sinus rhythm. Poor R wave progression. STRESS DATA: Exercise | | Time: 04:46 minutes, Heart Rate achieved: 164 bpm, Max BP: 177/79, RPP: 96028. METS: | | 7.00. The patient walked to 107% MPHR. Symptoms none given The test was terminated due | | to patient being winded, ECG: No arrhythmias. No ischemia. EJECTION FRACTION: REST EF: | | 73% STRESS EF: 80%. IMAGING:The quality images are good. No artifacts are seen. SPECT | | images show no significant rest or stress perfusion abnormality. Gated images show | | normal wall motion and normal systolic thickening. Post stress ejection fraction 80%.. | | IMPRESSIONS:Average exercise timeNo exercise-induced arrhythmias, ischemia, or | | symptomsNo significant rest or stress perfusion abnormalityNormal LV systolic functionNo | | comparison studies available. Giorgi Javier MD, RENATO, RADHA ARCOS Electronically | | signed by Giorgi Javier MD on 03/31/2015 12:38 PM | | | |IMAGING: | |The quality images are good. No artifacts are seen. SPECT images show no significant rest o r stress perfusion abnormality. Gated images show normal wall motion and normal systolic thi ckening. Post stress ejection fraction 80%.. | | | |IMPRESSIONS: | |Average exercise time | |No exercise-induced arrhythmias, ischemia, or symptoms | |No significant rest or stress perfusion abnormality | |Normal LV systolic function | |No comparison studies available. | | | |Giorgi Javier MD, RENATO, RADHA ARCOS | | | | | + + documented in this encounter Visit Diagnoses Not on filedocumented in this encounter"
--- OUTSIDE RECORDS SUMMARY | ~2020-05-21 | XMS | Encounter Summary ---
Demographics + + + | Address | [address] | | | [place] [address] | + + + | Home Phone | | + + + | Preferred Language | Unknown | + + + | Marital Status | Single | + + + | Methodist Affiliation | 1041 | + + + | Race | White | + + + | Ethnic Group | Not or | + + + Author + + + | Author | [facility] | | | and [place] | + + + | Organization | [facility] | | | [...] Team Providers + +------+ + | Care Treatment Supervisor Name | Role | Phone | + +------+ + | Mick Malik MD | PCP | | + +------+ + Encounter Details +--------+ + + + + | Date | Type | Department | Care Team | Description | +--------+ + + + + | 04/27/ | Abstract | [facility] | Mary Jo, | | | 2018 | | GASTROENTEROLOGY | MD [address] | | | | | [address] [facility] | [address]. | | | | | [address] [place] | [place] [address] | | | | | [address] | | | | | | [phone] | | | +--------+ + + + [...] +---------+ + | Yes | | | Occasionally | + + +---------+ + + + + | Sex Assigned at | Date Recorded | | | | + + + | Not on file | | + + + documented as of this encounter Plan of Treatment Not on filedocumented as of this encounter Visit Diagnoses Not on filedocumented in this encounter"
--- OUTSIDE RECORDS SUMMARY | ~2020-05-21 | XMS | Encounter Summary ---
Demographics + + + | Address | [address] | | | [place] [address] | + + + | Home Phone | | + + + | Preferred Language | Unknown | + + + | Marital Status | Single | + + + | Alevism Affiliation | 1041 | + + + | Race | White | + + + | Ethnic Group | Not or | + + + Author + + + | Author | [facility] | | | and [place] | + + + | Organization | 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 Name | Role | Phone | + [...] | | Gastroesopha | | [address], | | | | | geal reflux | | [address] | | | | | disease, | | [place], | | | | | esophagitis | | [place] [address] | | | | | presence not | | Phone: | | | | | specified | | [phone] | | | | | Weight loss, | | Fax: | | | | | | | [phone] | | | | | unintentiona | [...] | | | | | | | AL | | | | | | | ESOPHAGOGAST | | | | | | | RODUODENOSCO | | | | | | | PY TRANSORAL | | | | | | | DIAGNOSTIC | | | | | | | AL EGD | | | | | | | TRANSORAL | | | | | | | BIOPSY | | | | | | | SINGLE/MULTI | | | | | | | PLE AL | | | | | | | ANESTHESIA | | | | | | | UPPER GI | | | | | | | ENDOSCOPIC | | | | | | | PX NOS AL | | | | | | | COLONOSCOPY | | | | | | | FLX DX | | | | | | | W/COLLJ SPEC | | | | | | | WHEN PFRMD | | | | | | | AL | | | | | | | COLONOSCOPY | | | | | | | W/BIOPSY | | | | | | | SINGLE/MULTI | | | | | | | PLE AL | | | | | | | COLSC FLX | | | | | | | W/RMVL OF | | | | | | | TUMOR POLYP | | | | | | | LESION SNARE | | | | | | | TQ AL | | | | | | | [...] + + + + | 05/31/ | Anesthesia | [facility] | Raymond Madrigal | | | 2019 | Event | [facility] | P, [address] | | | | | [address] | [address] [place] | | | | | [place] | [address] | | | | | [address] | [phone] | | | | | [phone] | | | +--------+ + + + + Anesthesia Record + + + + + | Procedure Name | Responsible | Anesthesia Start | Anesthesia Stop Time | | | Anesthesiologist | Time | | + + + + + | FABIOLA (N/A Omid) | Raymond Madrigal, | 05/31/19 1243 | 05/31/19 8676 | | | MD | | | + + + + + +----+---+ + + | Da | T | Event | Comment | | te | i | | | | | m | | | | | e | | | +----+---+ + + | 10 | 1 | | | | /0 | 2 | | | | 1/ | 3 | | | | 20 | 8 | | | | 19 | | | | +----+---+ + + | | 1 | An Checkout | Pre-use anesthesia machine/equipment checkout. | | | 2 | | | | | 3 | | | | | 8 | | | +----+---+ + + | | 1 | An Start | | | | 2 | Data | | | | 3 | | | | | 8 | | | +----+---+ + + | | 1 | An Start | Room ready, anesthesia equipment checked, essential drugs & | | | 2 | | equipment available. Patient Identity checked, anesthesia plan | | | 4 | | explained and consent obtained. Patient transported to [facility], | | | 3 | | Monitors applied. Reassessment prior to anesthesia | | | | | induction/procedure. | +----+---+ + + | | 1 | an vanessa now | | | | 2 | | | | | 4 | | | | | 5 | | | +----+---+ + + | | 1 | Quick Note | Head of bed elevated 30 degrees | | | 2 | | | | | 4 | | | | | 5 | | | +----+---+ + + | | 1 | AN | Per surgeon request | | | 2 | Antibiotic | | | | 4 | declined | | | | 6 | | | +----+---+ + + | | 1 | Pre-Procedu | | | | 2 | ral Timeout | | | | 4 | Completed | | | | 7 | | | +----+---+ + + | | 1 | First | | | | 2 | Inc/Proc St | | | | 4 | | | | | 9 | | | +----+---+ + + | | 1 | an vanessa now | EGD | | | 2 | | | | | 5 | | | | | 1 | | | +----+---+ + + | | 1 | Quick Note | Sigmoid distention causes hypotension/Transverse causes | | | 3 | | hypertension & coughing. | | | 0 | | | | | 2 | | | +----+---+ + + | | 1 | an vanessa now | sdsu | | | 3 | | | | | 3 | | | | | 4 | | | +----+---+ + + | | 1 | an stop | | | | 3 | data | | | | 3 | | | | | 4 | | | +----+---+ + + | | 1 | An Stop | Patient handed off to recovery nurse. | | | 3 | | | | | 9 | | | +----+---+ + + +------+ | Meds | +------+ + + + | Name | Total | + + + | propofol | 120 mg | + + + | propofol | 301.88 mg | + + + | lactated ringers (LR) infusion | 1,300 mL | + + + + + | Name | + + | O2 Flow Rate (L/Min) | + + + + | No blood administrations on file. | + + +--------+ + + + | Type | Details | Placement | Removal | +--------+ + + + | Periph | 05/31/19; 1115; Right; Forearm; | 05/31/19 1115 by | 05/31/19 1418 by | | eral | [id number] catheter system; | Keyla Pedroza RN | Marleen Shaikh RN | | IV | 20 gauge, 1 1/2 in length; | | | | | distraction, intradermal | | | | | injection, tolerated well; no | | | | | longer indicated; 05/31/19; 1418 | | | +--------+ + + + documented in this encounter Social History + +--------+ +--------+------+ | Tobacco [...] encounter OR Notes Anesthesia Postprocedure Evaluation - Raymond Madrigal MD - 05/31/2019 2:26 PM PDTForm atting of this note might be different from the original. ANESTHESIA POSTANESTHESIA EVALUATION Joselyn Sofi Leung 73 y.o. female 1945 [id number] Procedure(s) EGD (N/A Mouth) COLONOSCOPY (N/A Rectum) Cooperates? Yes Mental Status Performs simple tasks. Respiratory Satisfactory - Airway patent (self maintained). Cardiovascular Satisfactory - Blood pressure and heart rate acceptable Temperature Satisfactory Pain Satisfactory N/V Control Satisfactory Hydration Satisfactory - No signs of dehydration Vitals Value Taken Time Temp 36.1 C (97 F) 05/31/2019 13:39 Pulse 87 05/31/2019 14:20 Resp 16 05/31/2019 13:39 BP 106/68 05/31/2019 14:20 Arterial Line BP Arterial Line BP 2 SpO2 99 % 05/31/2019 14:20 Electronically signed by Raymond Madrigal MD 05/31/2019 14:26 [facility] nesthesia Preprocedure Evaluation - Raymond Madrigal MD - 2018 11:16 PM PDT ANESTHESIA PREANESTHESIA EVALUATION Joselyn Sofi Leung 73 y.o. female 1945 [id number] Procedure(s): EGD (N/A Mouth) COLONOSCOPY (N/A Rectum) Review of Systems / Med History Anesthesia History (+) PONV Cardiovascular (+) history of heart murmur (+) Dysrhythmias: . Pulmonary (+) asthma. Neuromuscular (+) history of headaches, back pain, scoliosis. Physical Exam Airway MP II, TM >3 FB, Mouth opening >2 FB. Neck: limited ROM, extends <30 degrees. Jaw prot rusion limited. CV Rhythm regular. Anesthesia Plan ASA 3 Type: TIVA. Induction: Intravenous. Potential problems: None anticipated, none anticipated. Monitors: Standard ASA monitors. Consent statement:Anesthetic plan, alternatives, risks and benefits discussed with patient. . Consenting person understands and agrees to proceed . H/O Aspiration after last EGD 5 years ago. All questions answered in pre-op area before p roceeding to GI suite - agrees to plan of TIVA with possibility of advanced airway if clinic ally indicated. Risk of aspiration and hypoxia with endoscopy under TIVA explicitly discusse d and patient desires to proceed. Patient Active Problem List: SACROILIITIS DEGENERATIVE DISC DISEASE, LUMBAR SPINE BACK PAIN, LUMBAR OSTEOARTHRITIS, LUMBOSACRAL SPINE ANXIETY DISORDER, GENERALIZED Osteoporosis, severe DISTURBANCE OF SKIN SENSATION SOMATIC DYSFUNCTION, SPINE, SACRAL PERIPHERAL NEUROPATHY SCIATICA SCOLIOSIS BERTIN (acute kidney injury) Anemia, unspecified Cough Elevated liver enzymes GERD (gastroesophageal reflux disease) History of hyperparathyroidism Primary hyperparathyroidism Prediabetes Rhabdomyolysis Seasonal allergies Sepsis STEMI (ST elevation myocardial infarction) Thrombocytopenia, unspecified Weight loss, unintentional Insomnia, unspecified type Hx of aspiration pneumonitis Chronic renal insufficiency Gastroesophageal reflux disease, esophagitis presence not specified Positive colorectal cancer screening using Cologuard test BMI less than 19 Migraines . Electronically Signed by: Raymond Madrigal MD ESi date/time: 05/30/2019 23:16 documented in thi s encounter Miscellaneous Notes Anesthesia Post-op Handoff - Raymond Madrigal MD - 05/31/2019 1:40 PM PDT ANESTHESIA HANDOFF NOTE Joselyn Leung 73 y.o. female 1945 [id number] EGD (N/A Mouth) COLONOSCOPY (N/A Rectum) HANDOFF NOTE Handoff Protocol Used: post-procedure handoff checklist completed The following were completed during the transfer of care: 1. Identification of patient 2. Identification of responsible practitioner (primary service) 3. Discussion of pertinent medical history 4. Discussion of the surgical/procedure course (procedure, reason for surgery, procedure pe rformed) 5. Intraoperative anesthetic management and issues/concerns 6. Expectations/plans for the early post-procedure period 7. Opportunity for questions and acknowledgement of understanding of report from receiving team Patient Location: Phase II Condition: sedated Airway/O2: other (see comments) Multimodal analgesia: multimodal analgesia not used between 6 hours prior to anesthesia sta rt to PACU discharge Analgesics allergies?: Patient does not have documented allergies to multiple classes of an algesics Comments: Supplemental Oxygen administered as necessary to maintain oxygen saturations abov e 92%. If the surgery does not typically require Narcotics then Multi-Modal Analgesia is not indic ated. Head of bed elevated. The significant anesthesia concerns and VS in Epic were reviewed with the receiving team. Raymond Madrigal MD 05/31/2019 13:40 [facility] documented in this encounter Plan of Treatment Not on filedocumented as of this encounter Visit Diagnoses Not on filedocumented in this encounter Administered Medications + +---------+ +------+------+------+ | Medication Order | MAR | Action | Dose | Rate | Site | | | Action | Date | | | | + +---------+ +------+------+------+ | lactated ringers (LR) infusion | New Bag | 05/31/20 | | | | | at 100 mL/hr, Intravenous, | | 19 12:20 | | | | | CONTINUOUS, Starting 05/31/19 | | PM PDT | | | | | at 1115, Pre-op | | | | | | + +---------+ +------+------+------+ +---+---+ | | | +---+---+ + +-------+ +-------+---+---+ | propofol (DIPRIVAN) injection | Given | 05/31/20 | 40 mg | | | | Intravenous, PRN, Starting Tue | | 19 12:51 | | | | | 05/31/19 at 1249, Anesthesia | | PM PDT | | | | | Intra-op | | | | | | + +-------+ +-------+---+---+ +-------+ +-------+---+---+ | Given | 05/31/20 | 40 mg | | | | | 19 12:50 | | | | | | PM PDT | | | | +-------+ +-------+---+---+ | Given | 05/31/20 | 40 mg | | | | | 19 12:49 | | | | | | PM PDT | | | | +-------+ +-------+---+---+ +---+---+ | | | +---+---+ + + + + +-------+---+ | propofol (DIPRIVAN) injection | Rate/Dos | 05/31/20 | 100 | 31.5 | | | Intravenous, CONTINUOUS PRN, | e Change | 19 1:21 | mcg/kg/m | mL/hr | | | Starting 05/31/19 at 1251, | | PM PDT | in | | | | Anesthesia Intra-op | | | | | | + + + + +-------+---+ + + + +-------+---+ | Rate/Dose Change | 05/31/20 | 125 | 39.4 | | | | 19 1:11 | mcg/kg/m | mL/hr | | | | PM PDT | in | | | + + + +-------+---+ | Rate/Dose Change | 05/31/20 | 150 | 47.3 | | | | 19 1:01 | mcg/kg/m | mL/hr | | | | PM PDT | in | | | + + + +-------+---+ +---+---+ | | | +---+---+ documented in this encounter"
--- OUTSIDE RECORDS SUMMARY | ~2020-05-21 | XMS | Clinical Summary ---
Demographics + + + | Address | [address] | | | [place] [address] | + + + | Home Phone | | + + + | Preferred Language | Unknown | + + + | Marital Status | Single | + + + | Protestant Affiliation | 1041 | + + + [...] Team Providers + +------+ + | Care Potato Chip Cooker Machine Name | Role | Phone | + +------+ + | Mick Malik MD | PCP | | + +------+ + Allergies + + + + + + | Active Allergy | Reactions | Severity | Noted | Comments | | | | | Date | | + + + + + + | Codeine | Rash | Medium | 03/19/20 | | | | | | 17 | | + + + + + + | Fluoxetine | Diarrhea, Nausea And | Medium | 01/19/20 | serotonin | | | Vomiting | | 15 | syndrome?? | + + + + + + | Paroxetine | Anxiety, Rash | Medium | | | + + + + + + | Prednisone | Hives, Rash | Medium | 01/19/20 | "Red Man Syndrome" | | | | | 15 | | + + + + + + | Serotonin Reuptake | Anxiety, Rash | Medium | 10/09/19 | | | Inhibitors (Ssris) | | | 12 | | + + + + + + | Sertraline | Anxiety, Rash | Medium | 10/09/19 | Reaction: | | | | | 12 | serotonin syndrome?? | + + + + + + | Tramadol | Hives, Swelling, | High | 01/19/20 | Blisters, | | | Dermatitis, Rash | | 15 | Angioedema (facial | | | | | | swelling) | + + + + + + | Zoledronic Acid | Nausea And Vomiting, | Medium | 03/19/20 | Loss of muscle | | | Myalgia | | 17 | | + + + + + + Medications + + + +---------+------+------+-------+ | Medication | Sig | Dispensed | Refills | Star | End | Statu | | | | | | t | Date | s | | | | | | Date | | | + + + +---------+------+------+-------+ | Cholecalciferol | Take 2,000 Units by | | 0 | 09/1 | | Activ | | (VITAMIN D3) 2000 | mouth Daily. | | | 5/20 | | e | | UNITS CAPS | | | | 12 | | | + + + +---------+------+------+-------+ | acetaminophen | Take 2 tablets by | | 0 | 11/0 | | Activ | | (TYLENOL) 325 mg | mouth every four | | | 8/20 | | e | | tablet | hours as needed. | | | 17 | | | + + + +---------+------+------+-------+ | Multiple | Take 1 tablet by | | 0 | 05/0 | | Activ | | Vitamins-Minerals | mouth daily with | | | 8/20 | | e | | (MULTIVITAMIN WITH | breakfast. | | | 15 | | | | MINERALS) tablet | | | | | | | + + + +---------+------+------+-------+ | pantoprazole | Take 40 mg by mouth | | 0 | | | Activ | | (PROTONIX) 40 mg | every evening | | | | | e | | tablet | | | | | | | + + + +---------+------+------+-------+ | coenzyme Q10 100 | Take 100 mg by mouth | | 0 | | | Activ | | MG CAPS | Daily. | | | | | e | + + + +---------+------+------+-------+ | calcium carbonate | Chew and swallow 1 | | 0 | | | Activ | | (TUMS) 500 mg | tablet Daily as | | | | | e | | chewable tablet | needed for | | | | | | | | Heartburn. | | | | | | + + + +---------+------+------+-------+ Active Problems + + + | Problem | Noted Date | + + + | Incompetent lower esophageal sphincter | 05/31/2019 | + + + + + | Overview: Leads to reflux/aspiration in supine position | + + + + + | BMI less than 19 | 05/30/2019 | + + + | Migraines | 05/30/2019 | + + + | Weight loss, unintentional | 04/28/2019 | + + + + + | Overview: Added automatically from request for surgery | | [id number] | + + + + + | Insomnia, unspecified type | 04/28/2019 | + + + + + | Overview: Added automatically from request for surgery | | [id number] | + + + + + | Hx of aspiration pneumonitis | 04/28/2019 | + + + + + | Overview: Added automatically from request for surgery | | [id number] | + + + + + | Gastroesophageal reflux disease, esophagitis presence not | 04/28/2019 | | specified | | + + + + + | Overview: Added automatically from request for surgery | | [id number] | + + + + + | Positive colorectal cancer screening using Cologuard test | 04/28/2019 | + + + + + | Overview: Added automatically from request for surgery | | [id number] | + + + + + | Prediabetes | 08/11/2018 | + + + | Cough | 05/15/2017 | + + + | GERD (gastroesophageal reflux disease) | 03/19/2017 | + + + | History of hyperparathyroidism | 03/19/2017 | + + + + + | Overview: 07/07/2017 Parathyroidectomy [facility] | + + + + + | Primary hyperparathyroidism | 03/19/2017 | + + + | Seasonal allergies | 03/19/2017 | + + + | Anemia, unspecified | 01/02/2015 | + + + | Elevated liver enzymes | 01/02/2015 | + + + | Sepsis | 01/02/2015 | + + + | Thrombocytopenia, unspecified | 01/02/2015 | + + + | STEMI (ST elevation myocardial infarction) | 12/31/2014 | + + + | BERTIN (acute kidney injury) | 12/30/2014 | + + + | Rhabdomyolysis | 12/30/2014 | + + + | PERIPHERAL NEUROPATHY | 11/11/2011 | + + + | SACROILIITIS | | + + + | DEGENERATIVE DISC DISEASE, LUMBAR SPINE | | + + + | BACK PAIN, LUMBAR | | + + + | OSTEOARTHRITIS, LUMBOSACRAL SPINE | | + + + | ANXIETY DISORDER, GENERALIZED | | + + + | Osteoporosis, severe | | + + + + + | Overview: lumbar spine T score -2.6 | | Left femoral neck T score -3.6 | | Left forearm T score -4.6 | + + + +---+ | DISTURBANCE OF SKIN SENSATION | | + +---+ | SOMATIC DYSFUNCTION, SPINE, SACRAL | | + +---+ | SCIATICA | | + +---+ | SCOLIOSIS | | + +---+ | Chronic renal insufficiency | | + +---+ + + | Overview: 2015: GFR 30's-60's (limited data) | + + Resolved Problems + + + + | Problem | Noted | Resolved | | | Date | Date | + + + + | Osteoporosis | 04/28/20 | | | | 19 | 9 | + + + + + + | Overview: Added automatically from request for surgery | | [id number] | + + Family History + + +--------+ + | Medical History | Relation | Name | Comments | + + +--------+ + | Heart attack | Brother | | | + + +--------+ + | Other (see comment) | Brother | | Blood Disease | + + +--------+ + | No known problems | Brother | | | + + +--------+ + | No known problems | Brother | | | + + +--------+ + | No known problems | Child | | | + + +--------+ + | Diabetes, NIDDM | Father | | | + + +--------+ + | Heart attack | Father | | | + + +--------+ + | Heart disease | Father | | ASCVD | + + +--------+ + | Heart failure | Father | | | + + +--------+ + | Other (see comment) | Father | | Pulmonary Edema | + + +--------+ + | Early | Maternal | | Train Accident | | | Grandfath | | | | | er | | | + + +--------+ + | No known problems | Maternal | | | | | Grandmoth | | | | | er | | | + + +--------+ + | Hypertension | Mother | | | + + +--------+ + | Parkinsonism | Mother | | | + + +--------+ + | Stroke | Mother | | CVA | + + +--------+ + | Breast cancer | Other | | | + + +--------+ + | Stroke | Paternal | | CVA | | | Grandfath | | | | | er | | | + + +--------+ + | Cancer | Paternal | | | | | Grandmoth | | | | | er | | | + + +--------+ + | No known problems | Son | Rawley | | + + +--------+ + | No known problems | Son | Facundo | | + + +--------+ + + +--------+ + + | Relation | Name | Status | Comments | + +--------+ + + | Brother | | | | + +--------+ + + | Brother | | | | + +--------+ + + | Brother | | | | + +--------+ + + | Child | | | | + +--------+ + + | Father | | | acute pulmonary edema | | | | (Age | | | | | 83) | | + +--------+ + + | Maternal Grandfather | | | | + +--------+ + + | Maternal Grandmother | | | | + +--------+ + + | Mother | | | | | | | (Age | | | | | 87) | | + +--------+ + + | Other | | | Grandmother | + +--------+ + + | Paternal Grandfather | | | | + +--------+ + + | Paternal Grandmother | | | | + +--------+ + + | Son | Rawley | Alive | | + +--------+ + + | Son | Facundo | Alive | | + +--------+ + + Social History + +--------+ +--------+------+ [...] + + + | Blood Pressure | 96/58 | 06/29/2019 11:49 AM | | | | | PDT | | + + + + + | Pulse | 84 | 06/29/2019 11:49 AM | | | | | PDT [...] + + + | Oxygen Saturation | 96% | 06/29/2019 11:49 AM | | | | | PDT | | + + + + + | Inhaled Oxygen | - | - | | | Concentration | | | | + + + + + | Weight | 54 kg (119 lb) | 06/29/2019 11:49 AM | | | | | PDT | | + + + + + | Height | 170.2 cm (5' 7") | 06/29/2019 11:49 AM | | | | | PDT | | + + + + + | Body Mass Index | 18.64 | 06/29/2019 11:49 AM | | | | | PDT | | + + + + + Plan of Treatment + + + + + | Health Maintenance | Due Date | Last | Comments | | | | Done | | + + + + + | Hepatitis C | | | | | Screening | 7 | | | + + [...] | | | | | Pneumococcal 65+ (1 | 2 | | | | of 1 - PPSV23) | | | | + + + + + | Hemoglobin A1c | | 01/02/20 | | | Screening | 6 | 15, | | | | | 05/18/20 | | | | | 11 | | + + + + + | Adult Annual | | | | | Wellness Visit | 9 | | | + + + + + | Vaccine: Influenza | | | | | (#1) | 0 | | | + + + + + | Breast Cancer | | 06/10/20 | | | Screening | 1 | 19, | | | | | 05/28/20 | | | | | 18, | | | | | 01/31/20 | | | | | 17, | | | | | Addition | | | | | al | | | | | history | | | | | exists | | + + + + + | Colorectal Cancer | | 05/31/20 | | | Screening | 4 | 19, | | | (Colonoscopy) | | 05/01/20 | | | | | 11, | | | | | 08/31/19 | | | | | 11 | | + + + + + Results Not on filefrom Last 3 Months Insurance + +--------+ +--------+ + +--------+ | Payer | Benefi | Subscriber | Effect | Phone | Address | Type | | | t Plan | ID | cuca | | | | | | / | | Dates | | | | | | Group | | | | | | + +--------+ +--------+ + +--------+ | [facility] | [facility] | [id number] | 02/29/20 | | | Medica | | MEDICARE PPO | HEALTH | | 19-Pre | | | re | | | CARE | | sent | | | | | | MDCR | | | | | | | | PPO | | | | | | + +--------+ +--------+ + +--------+ | MEDICARE | MEDICA | [id number] | 11/30/19 | [phone] | | Medica | | | RE | | 12-Pre | 5 | | re | | | PART A | | sent | | | | | | AND B | | | | | | + +--------+ +--------+ + +--------+ | MODA | MODA | [id number] | 08/31/19 | [phone] | [address] | Indemn | | | HEALTH | | 20-Pre | 9 | [id number] | ity | | | MDCR | | sent | | [place], | | | | [place] | | | | [place] [address] | | + +--------+ +--------+ + +--------+ + +--------+ +--------+ + + | Guarantor Name | Accoun | Relation to | Date | Phone | Billing Address | | | t Type | Patient | of | | | | | | | | | | + +--------+ +--------+ + + | Joselyn Leung | Person | Self [birth year] | [address] | | | al/Fam | | 1945 | [phone] | [place] [address] | | | ike | | | 4 (Home) | | + +--------+ +--------+ + + | Joselyn Leung | Person | Self [birth year] | [address] | | | al/Fam | | 1946 | [phone] | [place] [address] | | | ike | | | 4 (Home) | | + +--------+ +--------+ + + | Joselyn Leung | Person | Self [birth year] | [address] | | | al/Fam | | 1946 | [phone] | [place] [address] | | | ike | | | 4 (Home) | | + +--------+ +--------+ + + Advance Directives + + + + + | Type | Date Recorded | Patient | Explanation | | | | 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
--- OUTSIDE RECORDS SUMMARY | ~2020-05-21 | XMS | Encounter Summary ---
Demographics + + + | Address | [address] | | | [place] [address] | + + + | Home Phone | | + + + | Preferred Language | Unknown | + + + | Marital Status | Single | + + + | Amish Affiliation | [id number] | + + + | Race | White | + + + | Ethnic Group | Not or | + + + Author + + + | Author | [facility] | | | and [place] | + + + | Organization | [facility] | | [...] Providers + +------+ + | Care Senior Ui Designer Name | Role | Phone | + +------+ + PCP | Unavailable | + +------+ + Encounter Details +--------+ + + + + | Date | Type | Department | Care Team | Description | +--------+ + + + + | 01/26/ | Hospital | [facility] | Kaur Stewart, | | | 2010 - | Encounter | MED CTR MED ONC | [address] | | | | | [address] | [place] | | | 01/27/ | | [place] [address] | [address] | | | 2010 | | [phone] | | | +--------+ + + + [...] documented as of this encounter Discharge Summaries Kaur Stewart MD - 01/26/2011 6:01 PM PDTADMISSION DATE: 01/26/2011 DISCHARGE DATE: 01/27/2011 DISCHARGE CONDITION: Good. DISCHARGE DIAGNOSES 1. FACET INFLAMMATION L4-5. 2. MUSCULAR PAIN SECONDARY TO MUSCULAR INFLAMMATION. 3. HISTORY OF ELEVATED BILIRUBIN CHRONIC. HOSPITAL COURSE: The patient was admitted to observation status through the emergency dep artment with intractable back pain and severe dehydration. She has responded nicely to IV f luids. MRI testing was done of the spine. The patient does not have any abscess or evidence of tumor or other acute problem needing further evaluation at this time. She does have marco a e bilaterally symmetric muscular inflammation and facet inflammation at L4-5. I have discus sed with her and her family that she may wish to follow up with someone like Dr. Charles gonzales, who may be able to do injections of her facet, and further evaluation of her muscul ar symptoms. In the meantime, she may try cold packs to her back and continue ibuprofen. Th e patient also has Ativan and Flexeril prescribed at home. The patient has had no complicat ions, no procedures, no consultants. VITAL SIGNS: Today, the patient's temperature is 36.6, pulse 87, blood pressure 102/63, r espirations 18. LABORATORY DATA: White blood cell count is 6000, hemoglobin and hematocrit of 10 and 31, platelets 208,000. Sodium 136, potassium 4.7, chloride 102, CO2 28, BUN 8, creatinine 0.68, glucose 111. MEDICATIONS: Medication reconciliation is done. The patient may take: 1. Flexeril 10 mg, take as p.r.n. 2. Lorazepam 1 mg at bedtime p.r.n. 3. Multiple vitamin 1 daily. 4. Pepcid, alternating with Protonix 20 mg every other day. 5. Vitamin D3 2000 units p.o. daily. FOLLOW UP: She will follow up with her usual physician, who is in the [place] area, and consider outpatient followup with Dr. Charles Tariq, she will be given the phone number f or [facility] and extension for his office. DICTATED BY: Kaur Stewart MD Internal Medicine JOB #: [id number] EXT JOB #:[id number] cc: Charles Tariq MD <Electronically Signed by Kaur Stewart MD> 01/27/11 1458 documented in this encounter H&P Notes Kaur Stewart MD - 01/26/2011 6:01 PM PDTDATE: 01/26/2011 ID CHIEF COMPLAINT: A 65-year-old female with chief complaint of syncopal episode at home with diarr hea and vomiting x1 day. The patient notes also intractable back pain. HISTORY OF PRESENT ILLNESS: Her pain is increased with movement. She has been seen and al luated in the emergency department for quite some time. The patient's pain has not been abel minated with IV Dila udid and she has been treated with ongoing boluses of IV fluids and cunningham s yet to make urine output. She appears to be significantly dehydrated. PAST MEDICAL HISTORY: The patient has a past history of L5-S1 laminectomy. She states this was done at [facility] in [place]. She is status post x2, and apparent ly has 3 children. S he has had eye surgery, appendectomy, cholecystectomy, this was done a t [facility] in 2001, carpal tunnel surgery, chronic back pain, hyperbili rubinemia, gastroesophageal reflux disease and chronic fatigue syndrome. She notes that prashant wesley is diagnosed around the time of her son coming karin with Crohn disease, which was diagno sed at this hospital. ALLERGIES: CODEINE AND RECLAST. MEDICATIONS: Include: 1. Flexeril 10 mg at bedtime. 2. Lorazepam 1 mg bedtime. 3. Pepcid 20 mg alternating with 20 mg of Protonix. 4. The patient also takes xlst-dlx-ciuqdcc Tums. 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 FAMILY HISTORY: Father has history of diabetes. Mother with hypertension. HABITS: No recent smoking, seldom uses alcohol. If drinking she states she would have beer . REVIEW OF SYSTEMS: Her legs and feet have been numb. This was treated with ibuprofen and kellie Peters made it better. She discontinue use of ibuprofen as of last . She n otes that she recentl y had blood tests and laboratory in [place], which showed that she did have persistent elevation of her bilirubin, which had been worked up as an outpatient b y a physician in [place]. She sees a Dr. Kay in [place]. PHYSICAL EXAMINATION GENERAL: She is a well-developed, well-nourished female, no apparent distress. VITAL SIGNS: Blood pressure 114/72, heart rate 87 and regular, respirations 16, temperatur e 97.2, sa turating 97% on room air. HEENT: Head is atraumatic, normocephalic. The patient's skin appears grossly jaundiced. Ey es- pupils are not equal. The left is enlarged. She notes that this is chronic. Nose is price ar. Throat is clear with fair dentition. NECK: Supple without adenopathy, thyromegaly, or masses. LUNGS: Clear to auscultation. HEART: Regular with normal S1, S2. No murmur. ABDOMEN: Soft, with normoactive bowel tones. Nontender. When asked to point to where she i s having b ack pain, she points posterior to the right hip area. She notes yesterday it was on the left side. NEUROLOGICAL: Deep tendon reflexes are 1+ and equal bilaterally. Babinski is negative. Sen sation is intact to lower extremities to light touch. She is able to move all extremities, however, further gai t testing was not done. The patient is awaiting MRI. Sodium is 127, po tassium 4, chloride 93, CO2 24, BUN 12, creatinine 0.8, glucose 122. White blood cell count 11.3, H and H of 13 and 39, platelets 25 1,000, bilirubin 3.7, AST 30, ALT 25, troponin 0. 01. EKG is abnormal, which showed normal sinus rhyth m but inferior Q-waves, no acute monteiro es. ASSESSMENT AND PLAN 1. A 65-YEAR-OLD FEMALE WITH INTRACTABLE BACK PAIN. I have asked that lipase be added. Will also plan to check SPEP and UPEP, and evaluation of acute on chronic back pain. The patien t may need further e valuation. MRI is pending at the time of this admission. She will be a dmitted to observation for ongo ing IV pain medication as well as IV hydration. 2. HYPERBILIRUBINEMIA. This appears actually to be more chronic, but due to chronic back pa in I have asked that lipase be done to evaluate for underlying malignancy. 3. DEHYDRATION. Patient appears acutely dehydrated. She has received several liters of IV normal sali ne i n the emergency department and appears to continue to be dehydrated with no urine output. Wi ll co ntinue close monitoring and strict I's and O's. 4. SYNCOPE, most likely related to dehydration and low volume status. There is no obvious e vidence fo r bleeding but serial blood tests will be done. The patient to be admitted to fl dical floor for IV ob servation. Will plan to follow up on MRI and other tests pending. DICTATED BY: Kaur Stewart MD Internal Medicine JOB #: [id number] EXT JOB #:[id number] cc: Mookie De Jesus M.D. <Electronically Signed by Kaur Stewart MD> 01/27/11 0657 documented in this encounter ED Notes Mookie De Jesus MD - 01/26/2011 6:01 PM PDTDATE: 01/26/2011 CHIEF COMPLAINT: Back pain. HISTORY: Joselyn is a 65-year-old female who has a history of chronic back pain. She said th at in the 1980s she had a L5-S1 laminectomy. Since that time she has done okay but periodic ally will have flare ups of her pain. A couple of days ago she started having increasing pa in. She said that she was taki ng ibuprofen and Ativan but the pain just got out of control . Yesterday she started with diarrhea and vomiting and then had a syncopal event. Today she has had syncopal events every time she stood up or moved. She is continuing to have severe back pain to the point that she cannot function at home so h er family brought her to the ER for further evaluation and treatment. She has had no fever, no cough. She did have a lot of vomiting and diarrhea yesterday, but no blood i n her vomit or her stool. She denies any abdominal pain. PAST MEDICAL HISTORY: Significant for 1. Asthma. 2. GERD. SOCIAL HISTORY: She is here with her son. REVIEW OF SYSTEMS: All systems reviewed and were negative except as in HPI. PHYSICAL EXAM GENERAL: This is a 65-year-old female in no apparent distress. INITIAL VITALS: BP 114/72, pulse 87, respirations 16, temperature 98.7, O2 saturations 97% on room a ir. HEENT: Pupils equally round and reactive to light. Mucous membranes are moist. Nasal passa ges clear. Trachea is midline. CHEST: Lungs are clear to auscultation bilaterally. No rales, no wheezes. CARDIOVASCULAR: Rate and rhythm is regular. ABDOMEN: Nontender, nondistended. She states that the painful area is kind of diffusely ov er her who le lower back. EXTREMITIES: No edema. SKIN: No rash. EMERGENCY DEPARTMENT COURSE / STUDIES: She had a CBC which was normal except for a white b lood cell count of 11.3. She had a comprehensive metabolic panel significant for glucose of 122 and a total som irubin of 3.7. She had a sodium of 127, chloride 93, troponin was norm al as well. She had an EKG done . EKG interpretation shows a sinus rhythm with a rate 87, NJ 178, QRS is 72, there is no acut e ST or T- wave changes consistent with ischemia. Chest x-ray was negative for pneumonia, pneumothorax, widened mediastinum, pleural effusion , or other cause of her symptoms. EMERGENCY DEPARTMENT COURSE: She received a total of 3 L of saline before she was no longe r orthosta tic. She received several mg of Dilaudid, a total of 4 of Zofran, 12 1/2 of Phen ergan, 2 Percocet but continued to have severe, intractable back pain when she stood up or tried to move. She has had no b owel or bladder incontinence. She has had no peripheral wea kness, just severe kind of lumbar back gina n. Therefore, the plan is to admit her for an MR I of her lumbar spine as well as further workup of he r elevated bilirubin. DIAGNOSIS 1. INTRACTABLE BACK PAIN. 2. ELEVATED BILIRUBIN. DISPOSITION: Admit. DICTATED BY: Mookie De Jesus M.D. Emergency Medicine JOB #: [id number] EXT JOB #:[id number] <Electronicall y Signed by Mookie De Jesus MD> 01/27/11 0728 documented in this encounter Plan of Treatment Not on filedocumented as of this encounter Procedures + +--------+ + + + | Procedure Name | Priori | Date/Time | Associated Diagnosis | Comments | | | ty | | | | + +--------+ + + + | CBC WITH | Routin | 01/27/2011 | | Results for this | | DIFFERENTIAL | e | 6:36 AM | | procedure are in the | | | | PDT | | results section. | + +--------+ + + + | PROTEIN | Routin | 01/27/2011 | | Results for this | | ELECTROPHORESIS, | e | 6:36 AM | | procedure are in the | | SERUM | | PDT | | results section. | + +--------+ + + + | BASIC METABOLIC | Routin | 01/27/2011 | | Results for this | | PANEL | e | 6:36 AM | | procedure are in the | | | | PDT | | results section. | + +--------+ + + + | PROTEIN | Routin | 01/26/2011 | | Results for this | | ELECTROPHORESIS, | e | 6:53 PM | | procedure are in the | | URINE 24HR, REFLEX | | PDT | | results section. | + +--------+ + + + | URINALYSIS, REFLEX | Routin | 01/26/2011 | | Results for this | | MICROSCOPIC AND/OR | e | 6:26 PM | | procedure are in the | | CULTURE | | PDT | | results section. | + +--------+ + + + | XR CHEST AP PORTABLE | | 01/26/2011 | | Results for this | | | | 6:01 PM | | procedure are in the | | | | PDT | | results section. | + +--------+ + + + | MRI LUMBAR SPINE W | | 01/26/2011 | | Results for this | | WO CONTRAST | | 6:01 PM | | procedure are in the | | | | PDT | | results section. | + +--------+ + + + | TROPONIN I | Routin | 01/26/2011 | | Results for this | | | e | 10:25 AM | | procedure are in the | | | | PDT | | results section. | + +--------+ + + + | CBC WITH | Routin | 01/26/2011 | | Results for this | | DIFFERENTIAL | e | 10:25 AM | | procedure are in the | | | | PDT | | results section. | + +--------+ + + + | LIPASE | Routin | 01/26/2011 | | Results for this | | | e | 10:25 AM | | procedure are in the | | | | PDT | | results section. | + +--------+ + + + | COMPREHENSIVE | Routin | 01/26/2011 | | Results for this | | METABOLIC PANEL | e | 10:25 AM | | procedure are in the | | | | PDT | | results section. | + +--------+ + + + documented in this encounter Results CBC with Differential (01/27/2011 6:36 AM PDT) + + + + + + | Component | Value | Ref Range | Performed | Pathologist | | | | | At | Signature | + + + + + + | White Blood | 6.0 (A) | 4.0 - 11.0 K/uL | [facility] | | | Cells | | | [facility] | | | | | | [facility] | | | | | | [facility] - | | | | | | LABORATORY | | + + + + + + | Red Blood | 3.72 | 3.70 - 5.20 | [facility] | | | Cells | | M/uL | [facility] | | | | | | [facility] | | | | | | [facility] - | | | | | | LABORATORY | | + + + + + + | Hemoglobin | 10.5 (L) | 11.5 - 16.0 | [facility] | | | | | gm/dL | [facility] | | | | | | [facility] | | | | | | C[facility] - | | | | | | LABORATORY | | + + + + + + | Hematocrit | 31.6 (L) | 34.0 - 47.0 % | [facility] | | | | | | [facility] | | | | | | [facility] | | | | | | [facility] - | | | | | | LABORATORY | | + + + + + + | MCV | 85.1 | 83.0 - 101.0 fL | [facility] | | | | | | [facility] | | | | | | [facility] | | | | | | [facility] - | | | | | | LABORATORY | | + + + + + + | MCH | 28.2 | 28.0 - 35.0 pg | [facility] | | | | | | [facility] | | | | | | [facility] | | | | | | [facility] - | | | | | | LABORATORY | | + + + + + + | MCHC | 33.1 | 32.0 - 36.0 | [facility] | | | | | g/dL | [facility] | | | | | | [facility] | | | | | | C[facility] - | | | | | | LABORATORY | | + + + + + + | RDW-CV | 13.0 | <15.0 % | [facility] | | | | | | [facility] | | | | | | [facility] | | | | | | C[facility] - | | | | | | LABORATORY | | + + + + + + | Platelet | 208 | 140 - 440 K/uL | [facility] | | | Count | | | [facility] | | | | | | MEDICAL | | | | | | CENTER - | | | | | | LABORATORY | | + + + + + + | % | 59.8 | 45 - 75 % | [facility] | | | Neutrophils | | | [facility] | | | | | | MEDICAL | | | | | | CENTER - | | | | | | LABORATORY | | + + + + + + | % | 26.1 | 20 - 45 % | [facility] | | | Lymphocytes | | | [facility] | | | | | | MEDICAL | | | | | | CENTER - | | | | | | LABORATORY | | + + + + + + | % Monocytes | 10.9 | 4 - 12 % | [facility] | | | | | | [facility] | | | | | | [facility] | | | | | | CENTER - | | | | | | LABORATORY | | + + + + + + | % | 2.8 | 0 - 5 % | [facility] [...] + + + + | Absolute | 3.6 (A) | 1.5 - 6.6 K/uL | [facility] | | | Neutrophils | | | [facility] | | | | | | [facility]ICAL | | | | | | C[facility] - | | | | | | LABORATORY | | + + + + + + | Absolute | 1.6 | 0.6 - 3.2 K/uL | [facility] | | | Lymphocytes | | | [facility] | | | | | | MEDICAL | | | | | | CENTER - | | | | | | LABORATORY | | + + + + + + | Absolute | 0.7 | 0.0 - 1.0 K/uL | [facility] | | | Monocytes | | | [facility] | | | | | | MEDICAL | | | | | | CENTER - | | | | | | LABORATORY | | + + + + + + | Absolute | 0.2 | 0.0 - 0.4 K/uL | [facility] [...] + | [facility] | [address] | [place], [place] | [phone] | | [facility] | | [id number] | | | - LABORATORY | | | | + + + + + | [facility] | [address] | [place], [place] | | | [facility] | | [id number], [facility] | | | - LABORATORY | | | | + + + + + Protein Electrophoresis, Serum (01/27/2011 6:36 AM PDT) + + + + + + | Component | Value | Ref Range | Performed | Pathologist | | | | | At | Signature | + + + + + + | Total | 6.2 | 6.2 - 7.8 gm/dL | [facility] | | | Protein | | | [facility] | | | | | | MEDICAL | | | | | | CENTER - | | | | | | LABORATORY | | + + + + + + | SPEP | *SEE SCANNED REPORT* | | [facility] | | | Interpretat | | | [facility] | | | ion | | | MEDICAL | | | [...] + | [facility] | [address] | [place] | [phone] | | [facility] | | [id number] | | | - LABORATORY | | | | + + + + + | [facility] | [address] | [place], [place] | | | [facility] | | [phone], [facility] | | | - LABORATORY | | | | + + + + + Basic Metabolic Panel (01/27/2011 6:36 AM PDT) + + + + + + | Component | Value | Ref Range | Performed | Pathologist | | | | | At | Signature | + + + + + + | Glucose | 111 (H) | 70 - 109 mg/dL | [facility] | | | | | | [facility] | | | | | | [facility]ICAL | | | | | | CENTER - | | | | | | LABORATORY | | + + + + + + | Calcium | 8.8 | 8.3 - 10.5 | [facility] | | | | | mg/dL | [facility] | | | | | [facility] | | | | | | [facility] - | | | | | | LABORATORY | | + + + + + + | BUN | 6 (L) | 7 - 18 mg/dL | [facility] | | | | | | [facility] | | | | | | MEDICAL | | | | | | CENTER - | | | | | | LABORATORY | | + + + + + + | Creatinine | 0.68 | 0.60 - 1.30 | [facility] | | | | | mg/dL | [facility] | | | | | | MEDICAL | | | | | | CENTER - | | | | | | LABORATORY | | + + + + + + | Estimated | >60Comment: For | >60 mL/min/A | [facility] | | | GFR | -Americans, | | [facility] | | | | please multiply the | | MEDICAL | | | | result by 1.210 | | CENTER - | | | | This is an estimated | | LABORATORY | | | | GFR and is based on | | | | | | a standard body | | | | | | mass and serum | | | | | | creatinine | | | | + + + + + + | BUN/Creatin | 8.8 (L) | 12 - 20 | [facility] | | | ine Ratio | | | [facility] | | | | | | [facility]ICAL | | | | | | CENTER - | | | | | | LABORATORY | | + + + + + + | Na | 136 | 136 - 149 mEq/L | [facility] | | | | | | [facility] | | | | | [facility] | | | | | | [facility] - | | | | | | LABORATORY | | + + + + + + | K | 4.7 | 3.5 - 5.1 mEq/l | [facility] | | | | | | [facility] | | | | | | MEDICAL | | | | | | CENTER - | | | | | | LABORATORY | | + + + + + + | Cl | 102 | 98 - 109 mEq/l | [facility] | | | | | | [facility] | | | | | | MEDICAL | | | | | | CENTER - | | | | | | LABORATORY | | + + + + + + | CO2 | 28 | 24 - 31 mEq/L | [facility] | | | | | | [facility] | | | | | | MEDICAL | | | | | | CENTER - | | | | | | LABORATORY | | + + + + + + | Anion Gap | 10.7 | 6.0 - 17.0 | [facility] | [...] + | [facility] | [address] | [place] | [phone] | | [facility] | | [id number] | | | - LABORATORY | | | | + + + + + | [facility] | [address] | [place] | | | [facility] | | [id number], [facility] | | | - LABORATORY | | | | + + + + + Protein Electrophoresis, Urine, 24Hr (01/26/2011 6:53 PM PDT) + + + + + + | Component | Value | Ref Range | Performed | Pathologist | | | | | At | Signature | + + + + + + | COLLECT | 01/26/11 | | [facility] | | | DATE | | | [facility] | | | | | | [facility]ICAL | | | | | | CENTER - | | | | | | LABORATORY | | + + + + + + | Protein, | 6 | <10 mg/dL | [facility] | | | Urine | | | [facility] | | | | | | MEDICAL | | | | | | CENTER - | | | | | | LABORATORY | | + + + + + + | TIME/DATE | 01-27-2011 | | [facility] | | | ANALYZED | | | [facility] | | | | | | MEDICAL | | | | | | CENTER - | | | | | | LABORATORY | | + + + + + + | PERFORMING | PW | | [facility] | | | TECH | | | [facility] | | | | | | [facility]ICAL | | | | | | CENTER - | | | | | | LABORATORY | | + + + + + + | UPEP Interp | *SEE SCANNED | | [facility] | | | | REPORT*Comment: | | [facility] | | | | | | MEDICAL | | | | | | CENTER - | | | | | | LABORATORY | | | | | | | | | | | | | | | | . | | | | | | | | | | | | | | | | | | | | | | | | | | | | | | . | | | | + + + + + + + + | Specimen | + + | | + + + + + + + | Performing | Address | City/State/Zipcode | Phone Number | | Organization | | | | + + + + + | [facility] | [address] | [place], [place] | [phone] | | [facility] | | [address] | | | - LABORATORY | | | | + + + + + | [facility] | [address] | [place], [place] | | | [facility] | | [id number], [facility] | | | - LABORATORY | | | | + + + + + Urinalysis, Reflex Microscopic and/or Culture (01/26/2011 6:26 PM PDT) + + + + + + | Component | Value | Ref Range | Performed | Pathologist | | | | | At | Signature | + + + + + + | COLLECTION | VOID | | [facility] | | | METHOD [facility] | | | [facility] | | | | | | MEDICAL | | | | | | CENTER - | | | | | | LABORATORY | | + + + + + + | Color, | LIGHT YELLOW | | [facility] | | | Urine | | | [facility] | | | | | | MEDICAL | | | | | | CENTER - | | | | | | LABORATORY | | + + + + + + | Clarity, | CLEAR | | [facility] | | | Urine | | | [facility] | | | | | | MEDICAL | | | | | | CENTER - | | | | | | LABORATORY | | + + + + + + | Glucose, | NEGATIVE | NEGATIVE mg/dL | [facility] | | | Urine | | | [facility] | | | | | | MEDICAL | | | | | | CENTER - | | | | | | LABORATORY | | + + + + + + | Bilirubin, | NEGATIVE | NEGATIVE | [facility] | | | Urine | | | [facility] | | | | | | MEDICAL | | | | | | CENTER - | | | | | | LABORATORY | | + + + + + + | Ketones, | NEGATIVE | NEGATIVE | [facility] | | | Urine | | | [facility] | | | | | | MEDICAL | | | | | | CENTER - | | | | | | LABORATORY | | + + + + + + | Specific | 1.015 | 1.001 - 1.030 | [facility] | | | [place], | | | [facility] | | | Urine | | | MEDICAL | | | | | | CENTER - | | | | | | LABORATORY | | + + + + + + | Blood, | NEGATIVE | NEGATIVE | [facility] | | | Urine | | | [facility] | | | | | | MEDICAL | | | | | | CENTER - | | | | | | LABORATORY | | + + + + + + | pH, Urine | 6.0 | 5.0 - 8.0 | [facility] | | | | | | [facility] | | | | | | MEDICAL | | | | | | CENTER - | | | | | | LABORATORY | | + + + + + + | Protein, | NEGATIVE | NEGATIVE mg/dL | [facility] | | | Urine | | | [facility] | | | | | | MEDICAL | | | | | | CENTER - | | | | | | LABORATORY | | + + + + + + | Urobilinoge | NORMAL | NORMAL EU/dL | [facility] | | | n, Urine | | | [facility] | | | | | | MEDICAL | | | | | | CENTER - | | | | | | LABORATORY | | + + + + + + | Nitrite, | NEGATIVE | NEGATIVE | [facility] | | | Urine | | | [facility] | | | | | | MEDICAL | | | | | | CENTER - | | | | | | LABORATORY | | + + + + + + | Leukocyte | NEGATIVE | NEGATIVE | [facility] | | | Esterase, | | | [facility] | | | Urine | | | MEDICAL | | | | | | CENTER - | | | | | | LABORATORY | | + + + + + + | MICROSCOPIC | NO | | [facility] | | | ? | | | [facility] | | [...] + | [facility] | [address] | [place], [place] | [phone] | | [facility] | | [address] | | | - LABORATORY | | | | + + + + + | [facility] | [address] | [place], [place] | | | [facility] | | [id number], [facility] | | | - LABORATORY | | | | + + + + + MRI Lumbar Spine w wo Contrast (01/26/2011 6:01 PM PDT) + + | Specimen | + + | | + + + + + | Narrative | Performed At | + + + | [facility] Diagnostic Imaging Department | [facility] | | [address] | [facility] | | UNENHANCED AND ENHANCED MRI | DIAG IMG | | LUMBAR SPINE, 01/26/2011 CLINICAL HISTORY: SEVERE LOW BACK PAIN | | | AND SPASM. COMPARISON: None. TECHNIQUE: The following 3-T | | | MRI sequences of the lumbar spine were obtained: 1. Axial and | | | sagittal T1. 2. Axial, sagittal and coronal T2. 3. Sagittal and | | | coronal STIR. 4. Following the uneventful intravenous | | | administration of 15 mL Magnevist, axial, sagittal and coronal fat | | | suppressed T1 sequences were obtained. FINDINGS: Five non-rib | | | bearing, lumbar type vertebrae are suggested on the coronal | | | sequences. There is leftward lumbar curvature centered at L2. Lumbar | | | vertebral body height is maintained, without evident fracture or | | | spondylolysis. Marrow signal is normal for age. The conus medullaris | | | is unremarkable, terminating at L1. No abnormal intradural, | | | epidural or interspace enhancement is seen following contrast | | | administration. There is a fairly symmetric STIR hyperintensity | | | and enhancement within the paramidline dorsal paraspinous | | | musculature throughout the lumbosacral region, without defined mass | | | or fluid collection. No signal alteration is seen within the | | | adjacent spinous processes or subcutaneous tissues. Minimal signal | | | alteration is noted within the interspinous ligaments. Imaged | | | intra-abdominal and paraspinal structures are otherwise unremarkable. | | | The T11-12 and T12-L1 levels are unremarkable on provided sagittal | | | images. The L1-2 and L2-3 levels demonstrate fairly mild | | | ligamentous and facet hypertrophy, without central canal or neural | | | foraminal stenosis. Early disc desiccation, mild disc space | | | narrowing, high signal annular tear, and biforaminal disc | | | protrusions are present at L3-4, combining with mild to moderate | | | ligamentous and facet hypertrophy to mildly narrow the neural foramina | | | , without evident nerve root compression or displacement. Severe | | | ligamentous and facet hypertrophy, high signal annular tear and 3 mm | | | of anterolisthesis are present at L4-5, combining with a mild, | | | diffuse posterior disc bulge to minimally encroach on the central | | | canal and neural foramina, without evident nerve root compression or | | | displacement. Bilateral facet joint effusions are present, along | | | with prominent subchondral cystic change and associated enhancement | | | along the margins of the facets. A small, rim enhancing synovial | | | cyst is suggested along the posterior aspect of the left facet joint. | | | Disc desiccation, moderate disc space narrowing, and high signal | | | annular tear are present at L5-S1, combining with fairly mild | | | ligamentous and facet hypertrophy to minimally narrow the neural | | | foramina, without evident nerve root compression or displacement. | | | IMPRESSION: 1. SYMMETRIC EDEMA AND ENHANCEMENT OF THE PARAMEDIAN | | | DORSAL PARASPINOUS MUSCULATURE AND INTERSPINOUS LIGAMENTS | | | THROUGHOUT THE LUMBOSACRAL REGION, POTENTIALLY INFLAMMATORY IN | | | NATURE. NO DEFINED MASS OR ABSCESS IS VISIBLE. INFECTION IS | | | CONSIDERED LESS LIKELY GIVEN THE SYMMETRIC DISTRIBUTION OF THIS | | | PROCESS WITH SPARING OF THE MORE LATERAL PORTIONS OF THE PARASPINAL | | | MUSCLES. 2. LEVOSCOLIOSIS AND MULTILEVEL FACET ARTHROPATHY, | | | GREATEST AT L4-5, WITH GRADE I PROBABLE DEGENERATIVE ANTEROLISTHESIS | | | AT THIS LEVEL. 3. DEGENERATIVE DISC DISEASE AND ANNULAR TEAR | | | AT L3-4, L4-5 AND L5-S1, WITHOUT SIGNIFICANT CENTRAL CANAL OR NEURAL | | | FORAMINAL STENOSIS. COMMENT: Preliminary results of this study | | | were reported by the [facility] radiologist on 01/26/2011 at 1722 | | | hours. Results were further discussed with Dr. Stewart at the time of | | | final interpretation on 01/27/2011 at 0945 hours. Dictated | | | Date/Time: 01/27/2011 10:15 Transcribed Date/Time: 01/27/2011 | | | 10:30 Sleeve Fixer: <Electronically Signed by Milton Mcclendon | | | MD Prashanth> 01/27/11 1556 | | + + + + + | Procedure Note | + + | Flavio, Rad Conversion - 10/07/2013 3:02 PM [facility] | | Diagnostic Imaging Department | | [address] [facility] | | | | | | | | UNENHANCED AND ENHANCED MRI LUMBAR SPINE, 01/26/2011 | | | | CLINICAL HISTORY: SEVERE LOW BACK PAIN AND SPASM. | | | | COMPARISON: None. | | | | TECHNIQUE: The following 3-T MRI sequences of the lumbar spine were obtained: | | 1. Axial and sagittal T1. | | 2. Axial, sagittal and coronal T2. | | 3. Sagittal and coronal STIR. | | 4. Following the uneventful intravenous administration of 15 mL Magnevist, | | axial, sagittal and coronal fat suppressed T1 sequences were obtained. | | | | FINDINGS: Five non-rib bearing, lumbar type vertebrae are suggested on the | | coronal sequences. There is leftward lumbar curvature centered at L2. Lumbar | | vertebral body height is maintained, without evident fracture or spondylolysis. | | Marrow signal is normal for age. The conus medullaris is unremarkable, | | terminating at L1. No abnormal intradural, epidural or interspace enhancement | | is seen following contrast administration. | | | | There is a fairly symmetric STIR hyperintensity and enhancement within the | | paramidline dorsal paraspinous musculature throughout the lumbosacral region, | | without defined mass or fluid collection. No signal alteration is seen within | | the adjacent spinous processes or subcutaneous tissues. Minimal signal | | alteration is noted within the interspinous ligaments. | | | | Imaged intra-abdominal and paraspinal structures are otherwise unremarkable. | | | | The T11-12 and T12-L1 levels are unremarkable on provided sagittal images. | | | | The L1-2 and L2-3 levels demonstrate fairly mild ligamentous and facet | | hypertrophy, without central canal or neural foraminal stenosis. | | | | Early disc desiccation, mild disc space narrowing, high signal annular tear, | | and biforaminal disc protrusions are present at L3-4, combining with mild to | | moderate ligamentous and facet hypertrophy to mildly narrow the neural foramina | | , without evident nerve root compression or displacement. | | | | Severe ligamentous and facet hypertrophy, high signal annular tear and 3 mm of | | anterolisthesis are present at L4-5, combining with a mild, diffuse posterior | | disc bulge to minimally encroach on the central canal and neural foramina, | | without evident nerve root compression or displacement. Bilateral facet joint | | effusions are present, along with prominent subchondral cystic change and | | associated enhancement along the margins of the facets. A small, rim enhancing | | synovial cyst is suggested along the posterior aspect of the left facet joint. | | | | Disc desiccation, moderate disc space narrowing, and high signal annular tear | | are present at L5-S1, combining with fairly mild ligamentous and facet | | hypertrophy to minimally narrow the neural foramina, without evident nerve root | | compression or displacement. | | | | IMPRESSION: | | 1. SYMMETRIC EDEMA AND ENHANCEMENT OF THE PARAMEDIAN DORSAL PARASPINOUS | | MUSCULATURE AND INTERSPINOUS LIGAMENTS THROUGHOUT THE LUMBOSACRAL REGION, | | POTENTIALLY INFLAMMATORY IN NATURE. NO DEFINED MASS OR ABSCESS IS VISIBLE. | | INFECTION IS CONSIDERED LESS LIKELY GIVEN THE SYMMETRIC DISTRIBUTION OF THIS | | PROCESS WITH SPARING OF THE MORE LATERAL PORTIONS OF THE PARASPINAL MUSCLES. | | | | 2. LEVOSCOLIOSIS AND MULTILEVEL FACET ARTHROPATHY, GREATEST AT L4-5, WITH | | GRADE I PROBABLE DEGENERATIVE ANTEROLISTHESIS AT THIS LEVEL. | | | | 3. DEGENERATIVE DISC DISEASE AND ANNULAR TEAR AT L3-4, L4-5 AND L5-S1, WITHOUT | | SIGNIFICANT CENTRAL CANAL OR NEURAL FORAMINAL STENOSIS. | | | | COMMENT: Preliminary results of this study were reported by the [facility] | | radiologist on 01/26/2011 at 1722 hours. Results were further discussed with | | Dr. Stewart at the time of final interpretation on 01/27/2011 at 0945 hours. | | | | Dictated Date/Time: 01/27/2011 10:15 | | Transcribed Date/Time: 01/27/2011 10:30 | | Sleeve Fixer: | | <Electronically Signed by Milton Alford MD> 01/27/11 1556 | + + + +---------+ + + | Performing | Address | City/State/Zipcode | Phone Number | | Organization | | | | + +---------+ + + | [facility] | | | | | [facility] | | | | + +---------+ + + XR Chest AP Portable (01/26/2011 6:01 PM PDT) + + | Specimen | + + | | + + + + + | Narrative | Performed At | + + + | [facility] Diagnostic Imaging Department | [facility] | | [address] [facility] [place] | [place] | | SINGLE AP CHEST, 01/26/2011 @ | DIAG IMG | | 1040 HOURS CLINICAL HISTORY: SYNCOPE. COMPARISON: None. | | | FINDINGS: The heart, mediastinum and pulmonary vasculature are | | | unremarkable. The lungs are clear wit hout pneumothorax or visible | | | pleural effusion. There is generalized rightward thoracic curvature. | | | Bon es and soft tissues are otherwise unremarkable. IMPRESSION: | | | 1. RIGHTWARD THORACIC CURVATURE WITHOUT EVIDENCE OF ACTIVE DISEASE | | | IN THE CHEST. Dictated Date/Time: 01/26/2011 12:33 Transcribed | | | Date/Time: 01/26/2011 12:36 Sleeve Fixer: | | | <Electronically Signed by Milton Alford MD> 01/26/11 1359 | | + + + + + | Procedure Note | + + | Flavio, Rad Conversion - 10/07/2013 3:02 PM [facility] | | Diagnostic Imaging Department [address], [facility] | | SINGLE AP CHEST, 01/26/2011 @ 1040 HOURS CLINICAL | | HISTORY: SYNCOPE. COMPARISON: None. FINDINGS: The heart, mediastinum and pulmonary | | vasculature are unremarkable. The lungs are clear without pneumothorax or visible | | pleural effusion. There is generalized rightward thoracic curvature. Bones and soft | | tissues are otherwise unremarkable. IMPRESSION: 1. RIGHTWARD THORACIC CURVATURE | | WITHOUT EVIDENCE OF ACTIVE DISEASE IN THE CHEST. Dictated Date/Time: 01/26/2011 | | 12:33Transcribed Date/Time: 01/26/2011 12:36Transcriptionist: <Electronically | | Signed by Milton Alford MD> 01/26/11 9949 | |COMPARISON: None. | | | |FINDINGS: The heart, mediastinum and pulmonary vasculature are unremarkable. The lungs are clear wit | |hout pneumothorax or visible pleural effusion. There is generalized rightward thoracic curv ature. Bon | |es and soft tissues are otherwise unremarkable. | | | |IMPRESSION: | |1. RIGHTWARD THORACIC CURVATURE WITHOUT EVIDENCE OF ACTIVE DISEASE IN THE CHEST. | | | |Dictated Date/Time: 01/26/2011 12:33 | |Transcribed Date/Time: 01/26/2011 12:36 | |Sleeve Fixer: | |<Electronically Signed by Milton Alford MD> 01/26/11 0459 | + + + +---------+ + + | Performing | Address | City/State/Zipcode | Phone Number | | Organization | | | | + +---------+ + + | [facility] | | | | | [facility] | | | | + +---------+ + + Comprehensive Metabolic Panel (01/26/2011 10:25 AM PDT) + + + + + + | Component | Value | Ref Range | Performed | Pathologist | | | | | At | Signature | + + + + + + | Glucose | 122 (H) | 70 - 109 mg/dL | [facility] | | | | | | [facility] | | | | | | [facility] | | | | | | C[facility] - | | | | | | LABORATORY | | + + + + + + | Calcium | 9.5 | 8.3 - 10.5 | [facility] | | | | | mg/dL | [facility] | | | | | | MEDICAL | | | | | | CENTER - | | | | | | LABORATORY | | + + + + + + | Alkaline | 58 | 40 - 110 IU/L | [facility] | | | Phosphatase | | | [facility] | | | | | | MEDICAL | | | | | | CENTER - | | | | | | LABORATORY | | + + + + + + | AST | 30 | 10 - 42 IU/L | [facility] | | | | | | [facility] | | | | | | [facility] | | | | | | CENTER - | | | | | | LABORATORY | | + + + + + + | ALT | 25 | 6 - 45 IU/L | [facility] | | | | | | [facility] | | | | | | [facility] | | | | | | CENTER - | | | | | | LABORATORY | | + + + + + + | Bilirubin | 3.7 (H) | 0.2 - 1.0 mg/dL | [facility] | | | Total | | | [facility] | | | | | | MEDICAL | | | | | | CENTER - | | | | | | LABORATORY | | + + + + + + | Total | 7.5 | 6.0 - 7.8 gm/dL | [facility] | | | Protein | | | [facility] | | | | | | MEDICAL | | | | | | CENTER - | | | | | | LABORATORY | | + + + + + + | Albumin | 4.0 | 3.2 - 5.0 gm/dL | [facility] | | | | | | [facility] | | | | | | [facility] | | | | | | CENTER - | | | | | | LABORATORY | | + + + + + + | BUN | 12 | 7 - 18 mg/dL | [facility] | | | | | [facility] | | [facility] | | | | | | [facility] - | | | | | | LABORATORY | | + + + + + + | Creatinine | 0.80 | 0.60 - 1.30 | [facility] | | | | | mg/dL | [facility] | | | | | | MEDICAL | | | | | | CENTER - | | | | | | LABORATORY | | + + + + + + | Estimated | >60Comment: For | >60 mL/min/A | [facility] | | | GFR | -Americans, | | [facility] | | | | please multiply the | | MEDICAL | | | | result by 1.210 | | CENTER - | | | | This is an estimated | | LABORATORY | | | | GFR and is based on | | | | | | a standard body | | | | | | mass and serum | | | | | | creatinine | | | | + + + + + + | BUN/Creatin | 15.0 | 12 - 20 | [facility] | | | ine Ratio | | | [facility] | | | | | | MEDICAL | | | | | | CENTER - | | | | | | LABORATORY | | + + + + + + | Na | 127 (L) | 136 - 149 mEq/L | [facility] | | | | | | [facility] | | | | | | MEDICAL | | | | | | CENTER - | | | | | | LABORATORY | | + + + + + + | K | 4.0 | 3.5 - 5.1 mEq/l | [facility] | | | | | | [facility] | | | | | | MEDICAL | | | | | | CENTER - | | | | | | LABORATORY | | + + + + + + | Cl | 93 (L) | 98 - 109 mEq/l | [facility] | | | | | | [facility] | | | | | | MEDICAL | | | | | | CENTER - | | | | | | LABORATORY | | + + + + + + | CO2 | 24 | 24 - 31 mEq/L | [facility] | | | | | | [facility] | | | | | | MEDICAL | | | | | | CENTER - | | | | | | LABORATORY | | + + + + + + | Anion Gap | 14.0 | 6.0 - 17.0 | [facility] | [...] + | [facility] | [address] | [place], [place] | [phone] | | [facility] | | [id number] | | | - LABORATORY | | | | + + + + + | [facility] | [address] | [place] | | | [facility] | | [id number] | | | - LABORATORY | | | | + + + + + Troponin I (01/26/2011 10:25 AM PDT) + + + + + + | Component | Value | Ref Range | Performed | Pathologist | | | | | At | Signature | + + + + + + | Troponin I | 0.01Comment: Reference | <0.10 ng/mL | [facility] | | | | Ranges: | | [facility] | | | | 0.00-0.09 = NORMAL | | MEDICAL | | | | 0.10-0.50 | | CENTER - | | | | = | | LABORATORY | | | | INDETERMINATE-SUSPICIOUS | | | | | | FOR | | | | | | | | | | | | NON-INFARCT | | | | | | MYOCARDIAL INJURY | | | | | | >0.50 = | | | | | | CONSISTENT WITH | | | | | | MYOCARDIAL INFARCT | | | | | | Results in the | | | | | | Indeterminate range can | | | | | | reflect a pre-infarct | | | | | | acute coronary | | | | | | syndrome, but can also | | | | | | reflect myocardial | | | | | | necrosis or injury | | | | | | that is not due to | | | | | | coronary artery | | | | | | disease. Some of these | | | | | | causes are sepsis, | | | | | | hypocolemia, atrial | | | | | | fibrillation, heart | | | | | | failure, pulmonary | | | | | | embolism, myocarditis, | | | | | | myocardial contusion, | | | | | | and renal failure. | | | | | | Testing performed on | | | | | | the Minnie Bhakti | | | | | | Access Analyzer. | | | | + + + + + + + + | Specimen | + + | | + + + + + + + | Performing | Address | City/State/Zipcode | Phone Number | | Organization | | | | + + + + + | [facility] | [address] | [place] | [phone] | | [facility] | | [address] | | | - LABORATORY | | | | + + + + + | [facility] | [address] | [place] | | | [facility] | | [id number] | | | - LABORATORY | | | | + + + + + Lipase (01/26/2011 10:25 AM PDT) + +-------+ + + + | Component | Value | Ref Range | Performed | Pathologist | | | | | At | Signature | + +-------+ + + + | Lipase | 27 | 0 - 60 U/L | [facility] | | | | | | [facility] [...] + | [facility] | [address] | [place] | [phone] | | [facility] | | [id number] | | | - LABORATORY | | | | + + + + + | [facility] | [address] | [place] | | | [facility] | | [id number], [facility] | | | - LABORATORY | | | | + + + + + CBC with Differential (01/26/2011 10:25 AM PDT) + + + + + + | Component | Value | Ref Range | Performed | Pathologist | | | | | At | Signature | + + + + + + | White Blood | 11.3 (H) | 4.0 - 11.0 K/uL | [facility] | | | Cells | | | [facility] | | | | | | [facility] | | | | | | CENTER - | | | | | | LABORATORY | | + + + + + + | Red Blood | 4.72 | 3.70 - 5.20 | [facility] | | | Cells | | M/uL | [facility] | | | | | | MEDICAL | | | | | | CENTER - | | | | | | LABORATORY | | + + + + + + | Hemoglobin | 13.3 | 11.5 - 16.0 | [facility] | | | | | gm/dL | [facility] | | | | | | [facility] | | | | | | C[facility] - | | | | | | LABORATORY | | + + + + + + | Hematocrit | 39.5 | 34.0 - 47.0 % | [facility] | | | | | | [facility] | | | | | [facility] | | | | | | [facility] - | | | | | | LABORATORY | | + + + + + + | MCV | 83.7 | 83.0 - 101.0 fL | [facility] | | | | | | [facility] | | | | | | [facility] | | | | | | [facility] - | | | | | | LABORATORY | | + + + + + + | MCH | 28.2 | 28.0 - 35.0 pg | [facility] | | | | | | [facility] | | | | | | MEDICAL | | | | | | CENTER - | | | | | | LABORATORY | | + + + + + + | MCHC | 33.7 | 32.0 - 36.0 | [facility] | | | | | g/dL | [facility] | | | | | | MEDICAL | | | | | | CENTER - | | | | | | LABORATORY | | + + + + + + | RDW-CV | 12.9 | <15.0 % | [facility] | | | | | | [facility] | | | | | | MEDICAL | | | | | | CENTER - | | | | | | LABORATORY | | + + + + + + | Platelet | 251 | 140 - 440 K/uL | [facility] | | | Count | | | [facility] | | | | | | MEDICAL | | | | | | CENTER - | | | | | | LABORATORY | | + + + + + + | % | 68.1 | 45 - 75 % | [facility] | | | Neutrophils | | | [facility] | | | | | | MEDICAL | | | | | | CENTER - | | | | | | LABORATORY | | + + + + + + | % | 19.2 (L) | 20 - 45 % | [facility] | | | Lymphocytes | | | [facility] | | | | | | MEDICAL | | | | | | CENTER - | | | | | | LABORATORY | | + + + + + + | % Monocytes | 10.7 | 4 - 12 % | [facility] | | | | | | [facility] | | | | | | MEDICAL | | | | | | CENTER - | | | | | | LABORATORY | | + + + + + + | % | 1.7 | 0 - 5 % | [facility] | | | Eosinophils | | | [facility] | | | | | | MEDICAL | | | | | | CENTER - | | | | | | LABORATORY | | + + + + + + | % Basophils | 0.3 | 0 - 1 % | [facility] | | | | | | [facility] | | | | | | MEDICAL | | | | | | CENTER - | | | | | | LABORATORY | | + + + + + + | Absolute | 7.7 (H) | 1.5 - 6.6 K/uL | [facility] | | | Neutrophils | | | [facility] | | | | | | MEDICAL | | | | | | CENTER - | | | | | | LABORATORY | | + + + + + + | Absolute | 2.2 | 0.6 - 3.2 K/uL | [facility] | | | Lymphocytes | | | [facility] | | | | | | MEDICAL | | | | | | CENTER - | | | | | | LABORATORY | | + + + + + + | Absolute | 1.2 (H) | 0.0 - 1.0 K/uL | [facility] | | | Monocytes | | | [facility] | | | | | | MEDICAL | | | | | | CENTER - | | | | | | LABORATORY | | + + + + + + | Absolute | 0.2 | 0.0 - 0.4 K/uL | [facility] [...] + | [facility] | [address] | [place] | [phone] | | [facility] | | [id number] | | | - LABORATORY | | | | + + + + + | [facility] | [address] | [place] | | | [facility] | | [id number] | | | - LABORATORY | | | | + + + + + documented in this encounter Visit Diagnoses Not on filedocumented in this encounter"
--- OUTSIDE RECORDS SUMMARY | ~2020-05-21 | XMS | Encounter Summary ---
Demographics + + + | Address | [address] | | | [place] [address] | + + + | Home Phone | | + + + | Preferred Language | Unknown | + + + | Marital Status | Single | + + + | Advent Affiliation | CAT | + + + | Race | White | + + + | Ethnic Group | Not or | + + + Author + + + | Author | [facility] | + + + | Organization | [facility] | + + + | Address | Unknown | + + + | Phone | Unavailable | + + + Support + + +---------+ + | Name | Relationship | Address | Phone | + + +---------+ + | Douglas Springer | ECON | Unknown | | + + +---------+ + Care Team Providers + +------+ + | Care Vamp Throater Name | Role | Phone | + +------+ + | Juan Dong MD | PCP | | + +------+ + Encounter Details +--------+ + + + + | Date | Type | Department | Care Team | Description | +--------+ + + + + | 07/17/ | MyChart | Otolaryngology | Rosalind Wu, | RE:lab results | | 2017 | Encounter | Head and Neck | [address] | | | | | Surgery Services at | [address] | | | | | [address] | [facility] [place] | | | | | [address] | [address] | | | | | Physician's | [phone] | | | | | Pavilion, 2nd floor | | | | | | [place], [place] | | | | | | [address] | | | | | | [phone] | | | +--------+ + + + [...] this encounter Miscellaneous Notes Telephone Encounter - Ritu Glez MA - 07/27/2017 7:13 AM PSTMy chart message to juan whitaker Instructed pt to call if there was any questions. Ritu Glez CMA elephone Encounter - Rosalind Wu MD - 07/22/2017 5:39 PM PSTCalcium normal documented in this encounter Plan of Treatment Not on filedocumented as of this encounter Procedures + +--------+ + + + | Procedure Name | Priori | Date/Time | Associated Diagnosis | Comments | | | ty | | | | + +--------+ + + + | BASIC METABOLIC SET | Routin | 07/20/2017 | | Results for this | | (NA, K, CL, TCO2, | e | | | procedure are in the | | BUN, CR, GLU, CA) | | | | results section. | + +--------+ + + + documented in this encounter Results BASIC METABOLIC SET (NA, K, CL, TCO2, BUN, CR, GLU, CA) (07/20/2017) + +-------+ + + + | Component | Value | Ref Range | Performed | Pathologist | | | | | At | Signature | + +-------+ + + + | GLUCOSE, | 91 | 70 - 100 mg/dL | [facility] | | | PLASMA | | | LAB - | | | (LAB) | | | [facility] | | + +-------+ + + + | BUN, PLASMA | 25.0 | 6.0 - 28.0 | [facility] | | | (LAB) | | mg/dL | LAB - | | | | | | [place] | | + +-------+ + + + | CREATININE | 0.88 | 0.7 - 1.18 | [facility] | | | PLASMA | | mg/dL | LAB - | | | (LAB) | | | [facility] | | + +-------+ + + + | SODIUM, | 137 | 132 - 143 | [facility] | | | PLASMA | | mmol/L | LAB - | | | (LAB) | | | [place] | | + +-------+ + + + | POTASSIUM, | 4.0 | 3.6 - 5.1 | [facility] | | | PLASMA | | mmol/L | LAB - | | | (LAB) | | | [facility] | | + +-------+ + + + | CHLORIDE, | 101 | 95 - 112 mmol/L | [facility] | | | PLASMA | | | LAB - | | | (LAB) | | | [place] | | + +-------+ + + + | TOTAL CO2, | 27 | 19 - 31 mmol/L | [facility] | | | PLASMA | | | LAB - | | | (LAB) | | | [place] | | + +-------+ + + + | CALCIUM, | 10.0 | 8.4 - 10.2 | [facility] | | | PLASMA | | mg/dL | LAB - | | | (LAB) | | | [facility] | | + +-------+ + + + + + | Specimen | + + | Blood - Blood | | (substance) | + + + + + + + | Performing | Address | City/State/Zipcode | Phone Number | | Organization | | | | + + + + + | [facility] - | [address] | [place], [place] | [phone] | | [place] | | | | + + + + + documented in this encounter Visit Diagnoses Not on filedocumented in this encounter"
--- OUTSIDE RECORDS SUMMARY | ~2020-05-21 | XMS | Encounter Summary ---
Demographics + + + | Address | [address] | | | [place] [address] | + + + | Home Phone | | + + + | Preferred Language | Unknown | + + + | Marital Status | Single | + + + | Synagogue Affiliation | 1041 | + + + | Race | White | + + + | Ethnic Group | Not or | + + + Author + + + | Author | [facility] | | | and [place] | + + + | Organization | [facility] | | | and [...] Team Providers + +------+ + | Care Chief Development Officer Name | Role | Phone | + +------+ + | Juan Dong MD | PCP | | + +------+ + Encounter Details +--------+ + + + + | Date | Type | Department | Care Team | Description | +--------+ + + + + | 11/29/ | Hospital | [facility] | Heraclio Aldana, | Other screening | | 2015 | Encounter | [facility] | [address] | mammogram | | | | [address] | [address] | | | | | [place] | [place] [address] | | | | | [address] | [phone] | | | | | [phone] | | | +--------+ + + + [...] + | [facility] | Routin | 11/29/2014 | Other screening | Results for this | | SCREENING BILATERAL | e | 7:56 AM | mammogram | procedure are in the | | | | PDT | | results section. | + +--------+ + + + documented in this encounter Results [facility] Tomosynthesis Screening Bilateral (11/29/2014 7:56 AM PDT) + + | Specimen | + + | | + + + + + | Narrative | Performed At | + + + | [facility] SCREENING BILATERAL 11/29/2014 7:56 AM History: | [facility] | | Family history of breast cancer in the patient's grandmother at age | | | 33. No personal history of breast cancer. Comparison: | | | Mammograms dating back to 11/19/2012 Technique: Bilateral | | | screening mammographic views were obtained. Images were reviewed with | | | the assistance of CAD. Tomosynthesis views were also obtained. | | | Findings: There is scattered fibroglandular tissue density. No | | | suspicious masses, calcifications, or architectural distortion are | | | seen in either breast. IMPRESSION - BIRADS Category 1: Negative. | | | Recommend annual screening mammography. Dictated and | | | Signed by: Rocky Michele MD Electronically signed: 11/30/2014 | | | 9:40 AM | | + + + + + | Procedure Note | + + | Flavio, Rad Results In - 11/30/2014 9:44 AM PDT [facility] SCREENING BILATERAL | | 11/29/2014 7:56 AMHistory: Family history of breast cancer in the patient's grandmother | | at age33. No personal history of breast cancer.Comparison: Mammograms dating back to | | 11/19/2012Technique: Bilateral screening mammographic views were obtained. Images | | werereviewed with the assistance of CAD. Tomosynthesis views were also | | obtained.Findings:There is scattered fibroglandular tissue density.No suspicious masses, | | calcifications, or architectural distortion are seen ineither breast.IMPRESSION -BIRADS | | Category 1: Negative. Recommend annual screening mammography. Dictated and Signed | | by: Rocky Michele MD Electronically signed: 11/30/2014 9:40 AM | | | |Findings: | |There is scattered fibroglandular tissue density. | |No suspicious masses, calcifications, or architectural distortion are seen in | |either breast. | | | |IMPRESSION - | |BIRADS Category 1: Negative. Recommend annual screening mammography. | | | | | |Dictated and Signed by: Rocky Michele MD | | Electronically signed: 11/30/2014 9:40 AM | + + + +---------+ + + | Performing | Address | City/State/Zipcode | Phone Number | | Organization | | | | + +---------+ + + | [facility] | | | | + +---------+ + + documented in this encounter Visit Diagnoses + + | Diagnosis | + + | Other screening mammogram | + + documented in this encounter"
--- OUTSIDE RECORDS SUMMARY | ~2020-05-21 | XMS | Encounter Summary ---
Demographics + + + | Address | [address] | | | [place] [address] | + + + | Home Phone | | + + + | Preferred Language | Unknown | + + + | Marital Status | Single | + + + | Gnosticism Affiliation | 1041 | + + + | Race | White | + + + | Ethnic Group | Not or | + + + Author + + + | Author | [facility] | | | and [place] | + + + | Organization | [facility] | | | [...] Team Providers + +------+ + | Care Speech Pathology Supervisor Name | Role | Phone | [...] | | Gastroesopha | | [address], | | | | | geal reflux | | [address] | | | | | disease, | | [place], | | | | | esophagitis | | [place] [address] | | | | | presence not | | Phone: | | | | | specified | | [phone] | | | | | Weight loss, | | Fax: | | | | | | | [phone] | | | | | unintentiona | [...] | | | | | | | OR | | | | | | | ESOPHAGOGAST | | | | | | | RODUODENOSCO | | | | | | | PY TRANSORAL | | | | | | | DIAGNOSTIC | | | | | | | OR EGD | | | | | | | TRANSORAL | | | | | | | BIOPSY | | | | | | | SINGLE/MULTI | | | | | | | PLE OR | | | | | | | ANESTHESIA | | | | | | | UPPER GI | | | | | | | ENDOSCOPIC | | | | | | | PX NOS OR | | | | | | | COLONOSCOPY | | | | | | | FLX DX | | | | | | | W/COLLJ SPEC | | | | | | | WHEN PFRMD | | | | | | | OR | | | | | | | COLONOSCOPY | | | | | | | W/BIOPSY | | | | | | | SINGLE/MULTI | | | | | | | PLE OR | | | | | | | COLSC FLX | | | | | | | W/RMVL OF | | | | | | | TUMOR POLYP | | | | | | | LESION SNARE | | | | | | | TQ OR | | | | | | | [...] Description | +--------+---------+ + + + | 05/31/ | Surgery | [facility] | Zachary Ramírez MD | EGD | | 2019 | | [facility] | [address], [place] | | | | | [address] | [address] | | | | | [place] | [address] | | | | | [address] | | | | | | [phone] | | | +--------+---------+ + + + Social History + +--------+ [...] + + + | Blood Pressure | 116/75 | 05/31/2019 10:45 AM | | | | | PDT | | + + + + + | Pulse | 96 | 05/31/2019 10:45 AM | | | | | PDT | | + + + + + | Temperature | 36.1 C (97 F) | 05/31/2019 10:45 AM | | | | | PDT | | + + + + + | Respiratory Rate | 16 | 05/31/2019 10:45 AM | | | | | PDT | | + + + + + | Oxygen Saturation | 97% | 05/31/2019 10:45 AM | | | [...] + documented as of this encounter H&P Notes Zachary Ramírze MD - 05/31/2019 12:46 PM PDTPatient has no questions consent forms were sig sydney we will proceed with upper endoscopy colonoscopy Zachary Torres MD - 05/26/2019 10:30 AM PDT PRE-ENDOSCOPY [...] [address] Ramírez LAMINECTOMY PARATHYROIDECTOMY 07/07/2017 [facility] TONSILLECTOMY AND ADENOIDECTOMY HOME MEDS: Prior to [...] bottle at 6AM day of procedure. Vit Q-Ytnlsitanympfxd-Ixok Hip (VITAMIN C & D3/RASHAWN HIPS PO) [...] 1. Available medical records have been reviewed. [facility] 03/11 2. Medication list reviewed. IMPRESSION: [...] Electronically Signed by: Zachary Ramírez MD 05/31/2019 [facility] Portions of this chart may have been created with [employer] voice recognition software. Occasi onal wrong-word or [...] copy Patient: Joselyn Leung : 1945 Acct: [id number] Exam Date: Friday, May 31, 2019 Doctor: [...] If unable to reach your physician, call [facility] Emergency Department at [address] Your doctor [...] Exams Patient: Joselyn Leung : 1945 Acct: [id number] Exam Date: Friday, May 31, 2019 Doctor: [...] If unable to reach your physician, call [facility] Emergency Department at [address] Your doctor [...] [address] | [place] | [phone] | | [facility] | | [address] | | | - LABORATORY | | | | + + + + + EGD (05/31/2019 12:40 PM PDT) + + | Specimen | + + | | + + + + -+ | Narrative | Performed At | + + -+ | | [facility] | | GastroenterologyPatient Name: Joselyn Mckeon Date: 05/31/2019 | [facility] | | 12:40 PMMRN: [id number] #: [id number] of : | | | 1945dmit Type: AmbulatoryAge: 73Room: Endo Room 1Gender: | | | FemaleNote Status: FinalizedAttending MD: Zachary Ramírez , | | | MDProcedure: Upper GI endoscopyIndications: | | | Esophageal reflux, Follow-up of esophageal refluxProviders: | | | Zachary Ramírez MD, Juana Peng RN, Jason Martins, | | | [facility], Raymond Madrigal MD (Anesthesia | | | [...] the anesthesiologist and the | | | warehousing technician in the endoscopy suite. Mental Status [...] | incisors. Imaging was performed using the [employer] Intelligent | | | Chromo Endoscopy (FICE) [...] clinic for pathology results in 1 week.Zachary Ramírez, | | | 05/31/2019 1:39:54 PMThis report has been signed | | | electronically.Number of Addenda: 0Note Initiated On: 05/31/2019 12:40 | | | PMScope In: 12:51:54 PMScope Out: 1:00:22 PM [facility] | | | [facility], [facility] [place] [address] | | | [phone] | | | - Continue present medications. [...] |Scope Out: 1:00:22 PM | | | [facility], [address] [facility], [place], [place] | | | [address] | | + + -+ + +---------+ [...] Mckeon Date: 05/31/2019 | [facility] | | 12:39 PMMRN: [id number] #: [id number] of : | | | 7Admit Type: AmbulatoryAge: 73Room: Endo Room 1Gender: | | | FemaleNote Status: FinalizedAttending MD: Zachary Ramírez , | | | MDProcedure: ColonoscopyIndications: Positive | | | Cologuard testProviders: Zachary Ramírez MD, Juana | | | VIV Peng, Jason Martins [facility], [place] | | | Mary Madrigal MD (Anesthesia [...] | | | PMScope Out: 1:28:51 PM [facility], [address] | | [place] [address] | | | - Continue present medications. [...] |Scope Out: 1:28:51 PM | | | [facility], [address] [place], [place] | | | [address] | | + + -+ + +---------+ [...] with early | | | tubular adenoma. CLR:[facility]:C2NR GROSS DESCRIPTION: Three | | [...] LABORATORY: The technical component was performed by [employer] | | | [employer], [address] [place] [address] (Cloth Shrinking Machine Operator: | | | Joseline Soni MD; CLIA# [id number]). Professional interpretation was | | | performed by [facility], [facility] | | | Branch, [address] [place] [address] (Cloth Shrinking Machine Operator: | | | Cesar Johnson M.D.; CLIA#: [id number]). | | | Diagnostician: Cesar Johnson MD [...]
--- OUTSIDE RECORDS SUMMARY | ~2020-05-21 | XMS | Encounter Summary ---
Demographics + + + | Address | [address] | | | [place] [address] | + + + | Home Phone | | + + + | Preferred Language | Unknown | + + + | Marital Status | Single | + + + | Evangelical Affiliation | [id number] | + + + | Race | White | + + + | Ethnic Group | Not or | + + + Author + + + | Author | [facility] | | | and [place] | + + + | Organization | [facility] | | | [...] Team Providers + +------+ + | Care Seismic Engineer Name | Role | Phone | + +------+ + PCP | Unavailable | + +------+ + Encounter Details +--------+ + + + + | Date | Type | Department | Care Team | Description | +--------+ + + + + | 05/18/ | Hospital | [facility] | Bryce Rodriguez, | | | 2010 - | Encounter | MED CTR MED [facility] | [address] | | | | | [address] [place] | [place], [place] | | | 05/22/ | | [place] [address] | [address] | | | 2010 | | [phone] | [phone] | | | | | | | [...] encounter Discharge Summaries Kaur Stewart MD - 05/18/2011 3:14 AM PDTADMISSION DATE: 05/18/2011 DISCHARGE DATE: 05/22/2011 DISCHARGE CONDITION: Improved. DISCHARGE DIAGNOSES 1. NAUSEA AND VOMITING, RESOLVED. 2. ABDOMINAL PAIN. 3. CHRONIC BACK PAIN. 4. HYPONATREMIA, RESOLVED. 5. ASPIRATION PNEUMONIA. 6. WEIGHT LOSS. 7. INFLAMMATORY PROCESS IN BACK. 8. CHRONIC FOOT NUMBNESS. HOSPITAL COURSE: The patient was admitted through the emergency department, found to be hyp ovolemic w ith severe hyponatremia with history of onset of nausea and vomiting after initi ation of several days of fluoxetine therapy. The patient was initially treated with Zofran and Phenergan in the emergency department with improvement of her symptoms. It is thought t hat the serotonin reuptake inhibitor may have also contributed to the patient's hyponatremi a. She had a prior history of hyponatremia, therefo re baseline a.m. cortisol was drawn. Th is was found to be normal. ACTH stimulation test was ordered b ut was not done correctly, t herefore results are not able to be interpreted. 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 She has no known history of live r disea se. Incidental finding on CT actually did show some fatty infiltration, no discreet lesions. T he patient's chronic low-back pain was treated with oxycodone. She was not found to have any new neur ologic deficits. Further workup was deferred to outpatient. The patient has b een seen in the past by Neurosurgery and therapeutic physiatry visits. The patient apparent ly had an intolerance to oral pred nisone therapy prescribed by a physician in [facility]. She remained on omeprazole 20 mg daily for her gastroesophageal reflux disease. DVT p rophylaxis was with enoxaparin. A CT scan was done, due to the patient's abdominal symptoms . This showed nonspecific findings of possible changes in the col on. GI consultation was d one. Dr. Zachary Ramírez saw the patient and evaluated her and performed colonos copy. The kristina ent had an episode of aspiration during the colonoscopy. I was called from the [facility] and told that a chest x-ray was done and that the anesthesiologist felt that t elsy juárez had an aspiration but there was no evidence of gastric contents, that most like ly this was oral secretions. Followup chest x-ray on 05/22/2011 does show a lingular infilt rate. The patient was start ed on empiric Zosyn with good results. Initially she was tachyc ardic with mild hypoxemia. She is now doing well on room air and will plan to continue a fu ll course of 10-14 days of therapy for aspiratio n pneumonia. HISTORY OF PRESENT ILLNESS: PHYSICAL EXAMINATION GENERAL: On this date, 05/22/2011, the patient's condition is improved. She is in no appare nt distres s on room air. VITAL SIGNS: Temperature 36.6, pulse 75, blood pressure 101/70, respirations 20, saturating 94%. HEENT: Stable. LUNGS: No rhonchi. HEART: Regular with normal S1 and S2, no murmur. ABDOMEN: Soft with normoactive bowel tones. EXTREMITIES: Within normal limits. NEUROLOGIC: Further neurologic exam is not done. LABORATORY STUDIES: White blood cell count 8.3, H and H is 9 and 29, significantly decrease d with hyd ration from 13 and 38, platelets 232,000. Sodium 137, potassium 4.2, chloride 10 2, CO2 of 27, BUN 4, creatinine 0.8, glucose 98. Differential showed decrease in lymphocyte s and monocytes. ESR on admissi on was 11. Urine electrolytes were done during the hospital course. Urine sodium 63, potassium 49, an d chloride 31. MEDICATIONS: Medication reconciliation is done: 1. TB skin testing p.r.n. 2. Acetaminophen 650 mg oral q.6h. p.r.n. 3. Albuterol inhalation q.1h. p.r.n. 4. Vitamin D3 2000 international units oral daily. 5. Dalteparin, Fragmin, 5000 international units subcutaneously daily. 6. Docusate 100 mg oral daily. 7. Lorazepam 1 mg at bedtime p.r.n. sleep. 8. Multiple vitamin 1 tablet daily. 9. Omeprazole 20 mg daily. 10. Zofran 4 mg IV q.8h. p.r.n. 11. Zosyn 3.375 g IV q.6h. 12. Oxycodone 5 mg oral every 4 hours p.r.n. The patient is being transferred to [place] today. DICTATED BY: Kaur Stewart MD Internal Medicine JOB #: [id number] EXT JOB #:[id number] cc: MD Bryce Reboleldo MD <Electronically Signed by Kaur Stewart MD> 05/23/11 1107 documented in this encounter H&P Notes Bryce Rodriguez MD - 05/18/2011 3:14 AM PDTDATE: 05/18/2011 CHIEF COMPLAINT: Nausea and vomiting. HISTORY OF PRESENT ILLNESS: Ms. Leung is a 65-year-old woman with a history of severe low back pain for 3 months, reflux and depression with anxiety who presents with severe nausea and vomiting since last Thursday. She stated that she recently started a new medicine, flu oxetine, last Thursday, 5 days ago, and then the next day began to have nausea, which worsen ed over the next 2 days. She then has had 36 hours of innumerable episodes of vomiting and dry heaves. She stated she has had no diarrhea and has actually had constipation in the la st few weeks. She denies any hematemesis. She has been able to keep some water and juice do wn. She denies any abdominal pain. She did not change any other medications other than the new fluoxetine. In the emergency department she was found to be hypovolemic and nauseated a nd she was given 1 liter of normal saline, as well as 12.5 mg of IV promethazine and 8 mg o f IV ondansetron. Her sodium was found to be 115 and she is being admitted for hyponatremi a. REVIEW OF SYSTEMS GENERAL: She denies fevers or chills. She has had decreased appetite over the last 3 month s, with a 15-pound weight loss. HEENT: She has chronic left eye anisocoria and difficulty constricting her left pupil, but no acute change. She came in with a very dry mouth. CARDIAC: She has had some fleeting chest pains, but no severe chest pain and no chest pain with exertion. PULMONARY: Denies any shortness of breath, cough or sputum production. GI: As above. : Denies any dysuria or hematuria. MUSCULOSKELETAL: She has chronic low back pain, which is basically unchanged at this point . She denies any acute neurologic deficits. PSYCHIATRIC: Her mood has been somewhat poor and anxious recently. HEMATOLOGY: No bruising, bleeding or lymphadenopathy noted. MEDICAL HISTORY 1. Low back pain. She began having this low back pain in December 2010 and had an MRI , which d id not show any acute deficits. Since that time she has tried a course of prednisone, but t his made her feel worse. She took 15 days of prednisone, starting at 50 mg daily, but this was tapered off and she stopped in February 2011. She has also had injections, but these do not seem to improve her symptoms either. She states that both her feet feel tingly since this low back pain started, although this has not changed recently. She says her sensation is i ntact. 2. GERD. She takes pantoprazole 20 mg p.o. one day, then famotidine 20 mg p.o. the next da y. 3. Anxiety and major depressive disorder. She recently started on fluoxetine for her depre ssion and anxiety, on Thursday. Normal mammogram this year, colonoscopy has been normal in the past, although she states s he is due for a new one. CURRENT MEDICATIONS 1. Lorazepam 1 mg p.o. every evening as needed for anxiety or sleeper. 2. Pantoprazole 20 mg p.o. every other day. 3. Famotidine 20 mg p.o. every other day. 4. Tylenol as needed for pain. 5. Multivitamin, 1 tab p.o. daily. 6. Ibuprofen 200 mg p.o. as needed for pain, she has not taken any since last week. 7. Cholecalciferol 2000 units p.o. daily. ALLERGIES 1. CODEINE CAUSES A RASH. 2. TRAMADOL CAUSES SWELLING. SURGICAL HISTORY: Remote history of appendectomy. Remote history of section x2. R emote history of cholecystectomy. Carpal tunnel syndrome surgery x2. Laminectomy. 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 Her 2 sons live nearby and help her when she needs them to do so. She does not smoke and has not smoked [employer]. She denies any alcohol use in the last week and has no illicit drug use. FAMILY HISTORY: Mother has diabetes and a brother has borderline diabetes. PHYSICAL EXAMINATION VITAL SIGNS: Blood pressure was 107/55 on arrival, heart rate 108, respiratory rate 22, te mperature 99.1. Oxygen saturation 98% on room air. GENERAL: She is a thin, but well-developed, well-nourished woman in no acute distress. HEENT: No scleral icterus. Moist mucous membranes. LYMPH: No cervical or axillary lymphadenopathy. CARDIAC: Regular rate and rhythm. No murmur, rub or gallop. JVP is flat. PULMONARY: Clear to auscultation bilaterally. No coughs, wheezes or rales. ABDOMEN: Soft, nontender, not distended. Bowel sounds are present. EXTREMITIES: Warm and well perfused. No clubbing, cyanosis or edema. NEURO: Strength is 5 out of 5 throughout, sensation is intact. Reflexes are diminished thr oughout. SKIN: No rashes or lesions noted. LABORATORY DATA: Sodium is 115, potassium 4.5, chloride 84, bicarbonate 23, BUN 11, creati nine 0.8, glucose 101. Liver function tests reveal AST was 32, ALT 38 , alkaline phosphatas e 60, albumin is 3.8, total protein 6.7, bilirubin is 2.9. Magnesium is 2, phosphate 3.1, c alcium 9.5. CBC shows a white count of 8.2, hematocrit of 35.5, platelets of 332,000, with a normal differential. DIAGNOSTIC DATA: Chest x-ray shows no consolidations, no cardiomegaly, no effusions. She h as some bowel gas noted. ASSESSMENT AND PLAN PROBLEM LIST: 1. HYPONATREMIA. She is hypovolemic and has hyponatremia, and this is likely due to severa l causes. Her recent severe nausea and vomiting likely contributed , as did her recent init iation of fluoxetine. She was recently admitted, in December 2010, with a sodium of 127. She was hypovolemic at that time as well and her sodium quickly corrected to 136. She does not hav e current symptoms of hyponatremia and our goal of correction is for less than 0.5 mEq/L pe r hour. Her fluoxetine will be stopped. We will check a fasting cortisol level and a TSH i n the morning. 2. NAUSEA AND VOMITING. She was given Zofran and Phenergan in the emergency room , with la rge improvement in her symptoms. This may be caused by a recent initiation of fluoxetine, w hich will be held. She will be given Zofran and Phenergan as needed for nausea and vomiting . 3. ELEVATED BILIRUBIN. Her bilirubin has chronically been elevated at 3 to 4 in the hospit al and she may have Gilbert syndrome. She has no other liver function test abnormalities an d no known liver disease. 4. LOW BACK PAIN. She will be given oxycodone as needed for her low back pain, as she does not have any new neuro deficits, and will not attempt further workup at this time. 5. GASTROESOPHAGEAL REFLUX DISEASE. Omeprazole 20 mg p.o. daily. ENOXAPARIN PROPHYLAXIS. CODE STATUS: FULL CODE. A son is her health power of tax attorney. DICTATED BY: Bryce Rodriguez MD Hospitalist JOB #: [id number] EXT JOB #:[id number] EDITED: 05/19/2011 07:16 <Electronically Signed by Bryce Rodriguez MD> 05/20/11 0033 documented in this encounter Consult Notes Zachary Ramírez MD - 05/18/2011 3:14 AM PDTDATE: 05/20/2011 CONSULTING PHYSICIAN: Zachary Ramírez MD PATIENT IDENTIFICATION: This is a 65-year-old female admitted with recurrent hyponatremia. CT scan of the abdomen and pelvis done in workup of the same showed some thickening of th e sigmoid colon with distention of the sigmoid colon and descending colon above that level. In addition, there was retai sydney stool. The patient complains of obstipation thought sec ondary to back pain and the medications t aken for her back pain. She has been treating th e same with stool softeners with variable results. The patient did have a colonoscopy by Xin Dillon in 1998. Family history is significant for Crohn dis ease. She complains of irre gular bowel pattern, primarily obstipation. The patient has had recurrent hyponatremia thought secondary to increased free water intake and medic ations. Due to her recurrent hyponatremia, abnormal CT scan, inpatient evaluati on is thought indicat ed. The patient's sodium is 128 on 05/20/2011. PAST MEDICAL HISTORY 1. Chronic low back pain. 2. Anxiety/depression. 3. Gastroesophageal reflux treated with pantoprazole alternating with pentamidine every ot her day. PAST SURGICAL HISTORY: Positive for appendectomy, x2, cholecystectomy, laminecto my. REVIEW OF SYSTEMS: Other than listed above is negative. PHYSICAL EXAMINATION GENERAL: A pleasant female in no apparent distress, oriented x4. VITAL SIGNS: Normal. HEENT: Intact. Mucous membranes are moist. CHEST: Clear to auscultation and percussion. CARDIOVASCULAR: S1, S2 within normal limits. No S3, S4, murmurs, or rubs. ABDOMEN: Soft. Bowel sounds are present. Well-healed midline scar is noted. Tympany to percussion . No pain to palpation or rebound. No masses are felt. Liver and spleen nonpa lpable. NEUROLOGIC: Gait normal. DTRs not tested. LABORATORY: Bilirubin elevated at 3 to 4 with no other liver function test abnormalities a nd no live r disease noted on CT scan. ASSESSMENT 1. OBSTIPATION, PROBABLY SECONDARY TO BACK PAIN, PAIN MEDICATIONS. 2. ABNORMAL CT SCAN, ETIOLOGY AND SIGNIFICANCE UNCLEAR. 3. GASTROESOPHAGEAL REFLUX, SYMPTOMATICALLY WELL CONTRO LLED. 4. ELEVATED BILIRUBIN WITHOUT FINDINGS OF OTHER SIGNIFICANT DISEASE WITH RESPECT TO THE BILIARY TRAC T BIOCHEMICALLY OR RADIOGRAPHICALLY. PLAN: At this time, the patient is a candidate for colonoscopy to evaluate her abnormal CT scan and her symptoms of left lower quadrant pain, although they have resolved. Benefits and risks of the pro cedure are explained to the patient, she concurs. She will be schedul ed with Anesthesia Services on 05/21/2011 in the early afternoon. With respect to her hyper bilirubinemia, would simply follow the [facility] clinically. DICTATED BY: Zachary Ramírez MD Gastroenterology JOB #: [id number] EXT JOB #:[id number] cc: Bryce Rodriguez MD <Electronically Signed by Zachary Ramírez MD> 05/27/11 1213 documented in this encounter ED Notes Juan Carrero MD - 05/18/2011 3:14 AM PDTDATE: 05/18/2011 ADDENDUM Just as I was getting ready to leave after signing the patient out to Dr. Monroy, the patien t's mini p michelle did come back. She is significantly hyponatremic with a sodium of 115 and h ypochloremic with a c hloride of 84. The rest of her lab work looks okay. I am adding maxi panel, magnesium, phosphorus, CB C, urine electrolytes and a portable chest x-ray. I discus sed the patient with Dr. Rodriguez, who is jay العراقي to admit her to the hospital. FINAL IMPRESSION SIGNIFICANT HYPONATREMIA. PLAN: The patient will be admitted by Dr. Rodriguez. DICTATED BY: Efraín Carrero MD Emergency Medicine JOB #: [id number] EXT JOB #:[id number] EDITED: 05/19/2011 07:23 <Electronically Signed by Xin Carrero MD> 05/20/11 1059 illJose perez MD - 05/18/2011 3:14 AM PDTDATE: 05/17/2011 PRIMARY PHYSICIAN: None locally. CHIEF COMPLAINT: Vomiting. HISTORY OF PRESENT ILLNESS: The patient is a 65-year-old female who was started on Prozac o n Thursday of this week. Thursday, after taking it, she had an episode of vomiting, but the n was okay on and then yesterday, which was Thursday, she started having vomiting i n the afternoon and has been vo miting continuously since then. She has had no diarrhea. Sh dave has had a little constipation, has not h ad any abdominal pain and has otherwise been fee ling fine. Her is fine. She denies any hemate mesis and denies any other complaints . PAST MEDICAL HISTORY: Back pain, anxiety, GE reflux disease, cholecystectomy, , an d appendec satya. CURRENT MEDICATIONS 1. Lorazepam. 2. Protonix. 3. Pepcid. 4. Tylenol. 5. Multivitamins. 6. Advil. 7. Vitamin D. ALLERGIES 1. CODEINE. 2. TRAMADOL. SOCIAL HISTORY: . Does smoke. Occasionally drinks alcohol. REVIEW OF SYSTEMS: Negative. She has not had any abdominal pain. She has not had any recent antibioti cs. Has not had any drinking out of streams and has not had any ill contacts. Sh dvae has had carpal tunn el surgery and laminectomy and has chronic back pain. Otherwise, revi ew of systems negative. PHYSICAL EXAMINATION VITAL SIGNS: Blood pressure 107/55, heart rate 108, respiratory rate 22, temp 99.1, pulse o ximetry 98 % on room air. GENERAL: She was vomiting when I talked in the room. Apparently, she had received some Zofr an in [employer], which did not help. HEENT: Oropharynx is dry. NECK: Supple. CARDIOVASCULAR: Regular rate and rhythm. No murmur or rub. LUNGS: Clear to auscultation bilaterally. ABDOMEN: Soft, nontender, nondistended. Hyperactive bowel sounds. No masses, guarding or re bound tend erness. No distention. EXTREMITIES: Have no edema or trauma. No pain to palpation or range of motion. NEUROLOGIC: She is alert and oriented with no focal abnormalities. EMERGENCY ROOM COURSE: At this point it is not clear why she is vomiting. I suppose it is p ossible it is induced by the Prozac, although it seems unusual, so we started an IV on her, and I have ordered 1 L normal saline bolus. Also, she got 12.5 mg of IV Phenergan and mary beth lly stopped vomiting. I have o rdered a BMP just to check her electrolytes and her blood schilling gar to make sure she is not acidotic at a ll. Those are all pending. She is feeling better right now, but the fluids are still just getting sta rted. IMPRESSION: NAUSEA, VOMITING AND DEHYDRATION WITH INTRAVENOUS REHYDRATION BEING DONE RIGHT NOW, AND B MP PENDING. PLAN: I am going to sign the patient out to Dr. Monroy for final disposition once the patien t is rehyd rated and her lab work has been completed. DICTATED BY: Efraín Carrero MD Emergency Medicine JOB #: [id number] EXT JOB #:[id number] <Electronicall y Signed by Xin Carrero MD> 05/20/11 1059 documented in this encounter Miscellaneous Notes Op Note - Zachary Ramírez MD - 05/18/2011 3:14 AM PDTPatient Name: Joselyn Leung Gender: Jules Procedure Date: 05/21/2011 2:30 PM Date of : 1945 Age: 65 Admit Type: Inpatient Room: [facility] Room 1 Note Status: Finalized Attending MD: Zachary Ramírez MD Procedure: Colonoscopy Indications: Abnormal CT of the GI tract, Change in bowel habits Providers: Zachary Ramírez MD, Jose Candelaria RN, Sarah Meredith, Supervisor P[employer], Heraclio Powers MD (Anesthesia Staff) Referring MD: Juan Dong MD Medicines: Sedation Required Anesthesia Staff Assistance Complications : Bradycardia, Hypoxia, Stridor Procedure: - Prior to the procedure, a History and Physical was performed, and patient medications, allergies and sensitivities have been reviewed. The patient's tolerance of previous anesthesia has been reviewed. - The risks and benefits of the procedure and the sedation options and risks were discussed with the patient. All questions were answered and informed consent was obtained. - Patient identification and proposed procedure were verified prior to the procedure by the physician, the nurse and the anesthesiologist. The procedure was verified in the procedure room. - Airway Examination: normal oropharyngeal airway and neck mobility and Mallampati Class II (the uvula but not tonsillar pillars visualized). - Mental Status Examination: alert and oriented. - ASA Grade Assessment: III - A patient with severe systemic disease. - After reviewing the risks and benefits, the patient was deemed in satisfactory condition to undergo the procedure. - Anesthesia under the supervision of an anesthesiologist using IV propofol was determined to be medically necessary for this procedure based on ASA Grade III-V and patient's dependence on opiates, sedatives or hypnotics. - Immediately prior to administration of medications, the patient was re-assessed for adequacy to receive sedatives. - The heart rate, respiratory rate, oxygen saturations, blood pressure, adequacy of pulmonary ventilation, and response to care were monitored throughout the procedure. - The physical status of the patient was re-assessed after the procedure. After I obtained informed consent, the scope was passed under direct vision. Throughout the procedure, the patient's blood pressure, pulse, and oxygen saturations were monitored continuously. The procedure was aborted. The colonscope was not inserted. Medications were given. The colonoscopy was extremely difficult due to restricted mobility of the colon, significant looping and a tortuous colon. Successful completion of the procedure was aided by changing the patient to a supine position, using manual pressure, straightening and shortening the scope to obtain bowel loop reduction, using scope torsion and managing the patient's medical instability. The colonoscopy was aborted due to the patient's cardiovascular instability (vasovagal reaction) and the patient's respiratory instability (hypoxia). Findings: The perianal and digital rectal examinations were normal. Pertinent negatives include normal sphincter tone and no palpable rectal lesions. The sigmoid colon, splenic flexure and transverse colon were significantly tortuous. The sigmoid colon, descending colon and transverse colon were significantly redundant. Impression: - Tortuous colon. - Redundant colon. Recommendation: - Observe patient in PACU for ongoing care. - Continue present medications. Zachary Ramírez MD Signed Date: 05/21/2011 3:17 PM Number of Addenda: 0 Note initiated on 05/21/2011 2:32 PM Scope Withdrawal Time: N/A Total Procedure Duration Time: 16 minutes 23 seconds <Electronically Signed by Zachary Ramírez MD> 05/21/11 1518 documented in this encounter Plan of Treatment Not on filedocumented as of this encounter Procedures + +--------+ + + + | Procedure Name | Priori | Date/Time | Associated Diagnosis | Comments | | | ty | | | | + +--------+ + + + | CBC WITH | Routin | 05/22/2011 | | Results for this | | DIFFERENTIAL | e | 6:15 AM | | procedure are in the | | | | PDT | | results section. | + +--------+ + + + | COMPREHENSIVE | Routin | 05/22/2011 | | Results for this | | METABOLIC PANEL | e | 6:15 AM | | procedure are in the | | | | PDT | | results section. | + +--------+ + + + | CBC WITH | Routin | 05/21/2011 | | Results for this | | DIFFERENTIAL | e | 6:20 AM | | procedure are in the | | | | PDT | | results section. | + +--------+ + + + | BASIC METABOLIC | Routin | 05/21/2011 | | Results for this | | PANEL | e | 6:20 AM | | procedure are in the | | | | PDT | | results section. | + +--------+ + + + | CORTISOL, POST | Routin | 05/20/2011 | | Results for this | | STIMULATION, RANDOM | e | 8:05 AM | | procedure are in the | | | | PDT | | results section. | + +--------+ + + + | CORTISOL | Routin | 05/20/2011 | | | | STIMULATION, 3 | e | 7:04 AM | | | | SPECIMENS | | PDT | | | + +--------+ + + + | CORTISOL, POST | Routin | 05/20/2011 | | Results for this | | STIMULATION, RANDOM | e | 7:04 AM | | procedure are in the | | | | PDT | | results section. | + +--------+ + + + | CORTISOL, BASELINE | Routin | 05/20/2011 | | Results for this | | | e | 7:04 AM | | procedure are in the | | | | PDT | | results section. | + +--------+ + + + | SEDIMENTATION RATE | Routin | 05/20/2011 | | Results for this | | | e | 7:04 AM | | procedure are in the | | | | PDT | | results section. | + +--------+ + + + | ACTH | Routin | 05/20/2011 | | Results for this | | | e | 7:04 AM | | procedure are in the | | | | PDT | | results section. | + +--------+ + + + | CBC NO DIFFERENTIAL | Routin | 05/20/2011 | | Results for this | | | e | 7:04 AM | | procedure are in the | | | | PDT | | results section. | + +--------+ + + + | BASIC METABOLIC | Routin | 05/20/2011 | | Results for this | | PANEL | e | 7:04 AM | | procedure are in the | | | | PDT | | results section. | + +--------+ + + + | BASIC METABOLIC | Routin | 05/19/2011 | | Results for this | | PANEL | e | 10:12 AM | | procedure are in the | | | | PDT | | results section. | + +--------+ + + + | CBC NO DIFFERENTIAL | Routin | 05/19/2011 | | Results for this | | | e | 6:46 AM | | procedure are in the | | | | PDT | | results section. | + +--------+ + + + | BASIC METABOLIC | Routin | 05/18/2011 | | Results for this | | PANEL | e | 10:25 PM | | procedure are in the | | | | PDT | | results section. | + +--------+ + + + | BASIC METABOLIC | Routin | 05/18/2011 | | Results for this | | PANEL | e | 4:17 PM | | procedure are in the | | | | PDT | | results section. | + +--------+ + + + | BASIC METABOLIC | Routin | 05/18/2011 | | Results for this | | PANEL | e | 9:44 AM | | procedure are in the | | | | PDT | | results section. | + +--------+ + + + | CORTISOL, AM | Routin | 05/18/2011 | | Results for this | | | e | 5:09 AM | | procedure are in the | | | | PDT | | results section. | + +--------+ + + + | VITAMIN B-12 | Routin | 05/18/2011 | | Results for this | | | e | 5:09 AM | | procedure are in the | | | | PDT | | results section. | + +--------+ + + + | CBC NO DIFFERENTIAL | Routin | 05/18/2011 | | Results for this | | | e | 5:09 AM | | procedure are in the | | | | PDT | | results section. | + +--------+ + + + | TSH | Routin | 05/18/2011 | | Results for this | | | e | 5:09 AM | | procedure are in the | | | | PDT | | results section. | + +--------+ + + + | HEMOGLOBIN A1C | Routin | 05/18/2011 | | Results for this | | | e | 5:09 AM | | procedure are in the | | | | PDT | | results section. | + +--------+ + + + | BASIC METABOLIC | Routin | 05/18/2011 | | Results for this | | PANEL | e | 5:09 AM | | procedure are in the | | | | PDT | | results section. | + +--------+ + + + | XR CHEST AP PORTABLE | | 05/18/2011 | | Results for this | | | | 3:14 AM | | procedure are in the | | | | PDT | | results section. | + +--------+ + + + | XR CHEST AP PORTABLE | | 05/18/2011 | | Results for this | | | | 3:14 AM | | procedure are in the | | | | PDT | | results section. | + +--------+ + + + | CT ABDOMEN PELVIS W | | 05/18/2011 | | Results for this | | CONTRAST | | 3:14 AM | | procedure are in the | | | | PDT | | results section. | + +--------+ + + + | XR CHEST PA AND | | 05/18/2011 | | Results for this | | LATERAL | | 3:14 AM | | procedure are in the | | | | PDT | | results section. | + +--------+ + + + | CBC NO DIFFERENTIAL | Routin | 05/18/2011 | | Results for this | | | e | 3:12 AM | | procedure are in the | | | | PDT | | results section. | + +--------+ + + + | ELECTROLYTES, URINE | Routin | 05/17/2011 | | Results for this | | | e | 11:49 PM | | procedure are in the | | | | PDT | | results section. | + +--------+ + + + | PHOSPHORUS | Routin | 05/17/2011 | | Results for this | | | e | 10:56 PM | | procedure are in the | | | | PDT | | results section. | + +--------+ + + + | MAGNESIUM | Routin | 05/17/2011 | | Results for this | | | e | 10:56 PM | | procedure are in the | | | | PDT | | results section. | + +--------+ + + + | COMPREHENSIVE | Routin | 05/17/2011 | | Results for this | | METABOLIC PANEL | e | 10:56 PM | | procedure are in the | | | | PDT | | results section. | + +--------+ + + + documented in this encounter Results Comprehensive Metabolic Panel (05/22/2011 6:15 AM PDT) + + + + + + | Component | Value | Ref Range | Performed | Pathologist | | | | | At | Signature | + + + + + + | Glucose | 98 | 70 - 109 mg/dL | [facility] | [facility] | | | [facility] | [facility] | | | | | [facility] - | | | | | | LABORATORY | | + + + + + + | Calcium | 8.7 | 8.3 - 10.5 | [facility] | | | | | mg/dL | [facility] | | | | | | [facility] | | | | | | [facility] - | | | | | | LABORATORY | | + + + + + + | Alkaline | 46 | 40 - 110 IU/L | [facility] | | | Phosphatase | | | [facility] | | | | | | [facility] | | | | | | [facility] - | | | | | | LABORATORY | | + + + + + + | AST | 28 | 10 - 42 IU/L | [facility] | | | | | [facility] | | | | | | [facility] | | | | | | [facility] - | | | | | | LABORATORY | | + + + + + + | ALT | 39 | 6 - 45 IU/L | [facility] | | | | | | [facility] | | | | | | [facility] | | | | | | [facility] - | | | | | | LABORATORY | | + + + + + + | Bilirubin | 2.0 (H) | 0.2 - 1.0 mg/dL | [facility] | | | Total | | | [facility] | | | | | | [facility] | | | | | | [facility] - | | | | | | LABORATORY | | + + + + + + | Total | 5.3 (L) | 6.0 - 7.8 gm/dL | [facility] | | | Protein | | | [facility] | | | | | | [facility] | | | | | | [facility] - | | | | | | LABORATORY | | + + + + + + | Albumin | 3.0 (L) | 3.2 - 5.0 gm/dL | [facility] | | | | | [facility] | | | | | | [facility] | | | | | | [facility] - | | | | | | LABORATORY | | + + + + + + | BUN | 4 (L) | 7 - 18 mg/dL | [facility] | | | | | | [facility] | | | | | | [facility] | | | | | | [facility] - | | | | | | LABORATORY | | + + + + + + | Creatinine | 0.81 | 0.60 - 1.30 | [facility] | | | | | mg/dL | [facility] | | | | | | [facility] | | | | | | [facility] - | | | | | | LABORATORY | | + + + + + + | Estimated | >60Comment: For | >60 mL/min/A | [facility] | | | GFR | -Americans, | [...] + + + + | BUN/Creatin | 4.9 (L) | 12 - 20 | [facility] | | | ine Ratio | | | [facility] | | | | | | [facility] | | | | | | CENTER - | | | | | | LABORATORY | | + + + + + + | Na | 137 | 136 - 149 mEq/L | [facility] | | | | | | [facility] | | | | | | [facility] | | | | | | [facility] - | | | | | | LABORATORY | | + + + + + + | K | 4.2 | 3.5 - 5.1 mEq/l | [facility] [...] + + + + | CO2 | 27 | 24 - 31 mEq/L | [facility] | | | | | | [facility] | | | | | | [facility] | | | | | | [facility] - | | | | | | LABORATORY | | + + + + + + | Anion Gap | 12.2 | 6.0 - 17.0 | [facility] | [...] + | [facility] | [address] | [place], [place] | [phone] | | [facility] | | [address] | | | - LABORATORY | | | | + + + + + | [facility] | [address] | [place], [place] | | | [facility] | | [address] [place] [address] | | | - LABORATORY | | | | + + + + + CBC with Differential (05/22/2011 6:15 AM PDT) + + + + + + | Component | Value | Ref Range | Performed | Pathologist | | | | | At | Signature | + + + + + + | White Blood | 8.3 (A) | 4.0 - 11.0 K/uL | [facility] | | | Cells | | | [facility] | | | | | | [facility] | | | | | | C[facility] - | | | | | | LABORATORY | | + + + + + + | Red Blood | 3.45 (L) | 3.70 - 5.20 | [facility] | | | Cells | | M/uL | [facility] | | | | | | MEDICAL | | | | | | CENTER - | | | | | | LABORATORY | | + + + + + + | Hemoglobin | 9.9 (L) | 11.5 - 16.0 | [facility] | | | | | gm/dL | [facility] | | | | | | [facility]ICAL | | | | | | CENTER - | | | | | | LABORATORY | | + + + + + + | Hematocrit | 29.4 (L) | 34.0 - 47.0 % | [...] + + + + | MCH | 28.7 | 28.0 - 35.0 pg | [facility] [...] + + + + | RDW-CV | 14.9 | <15.0 % | [facility] | | | | | | [facility] | | | | | | [facility]ICAL | | | | | | CENTER - | | | | | | LABORATORY | | + + + + + + | Platelet | 232 | 140 - 440 K/uL | [facility] | | | Count | | | [facility] | | | | | | [facility] | | | | | | CENTER - | | | | | | LABORATORY | | + + + + + + | % | 77.1 (H) | 45 - 75 % | [facility] | | | Neutrophils | | | [facility] | | | | | | MEDICAL | | | | | | CENTER - | | | | | | LABORATORY | | + + + + + + | % | 18.2 (L) | 20 - 45 % | [facility] | | | Lymphocytes | | | [facility] | | | | | | MEDICAL | | | | | | CENTER - | | | | | | LABORATORY | | + + + + + + | % Monocytes | 3.6 (L) | 4 - 12 % | [facility] | | | | | | [facility] | | | | | | [facility]ICAL | | | | | | CENTER - | | | | | | LABORATORY | | + + + + + + | % | 0.6 | 0 - 5 % | [facility] | | | Eosinophils | | | [facility] | | | | | | MEDICAL | | | | | | CENTER - | | | | | | LABORATORY | | + + + + + + | % Basophils | 0.5 | 0 - 1 % | [facility] | | | | | | [facility] | | | | | | MEDICAL | | | | | | CENTER - | | | | | | LABORATORY | | + + + + + + | Absolute | 6.4 (A) | 1.5 - 6.6 K/uL | [facility] | | | Neutrophils | | | [facility] | | | | | | MEDICAL | | | | | | CENTER - | | | | | | LABORATORY | | + + + + + + | Absolute | 1.5 | 0.6 - 3.2 K/uL | [facility] | | | Lymphocytes | | | [facility] | | | | | | MEDICAL | | | | | | CENTER - | | | | | | LABORATORY | | + + + + + + | Absolute | 0.3 | 0.0 - 1.0 K/uL | [facility] | | | Monocytes | | | [facility] | | | | | | MEDICAL | | | | | | CENTER - | | | | | | LABORATORY | | + + + + + + | Absolute | 0.0 | 0.0 - 0.4 K/uL | [facility] [...] + | [facility] | [address] | [place], [place] | [phone] | | [facility] | | [address] | | | - LABORATORY | | | | + + + + + | [facility] | [address] | [place], [place] | | | [facility] | | [address] [place] [address] | | | - LABORATORY | | | | + + + + + Basic Metabolic Panel (05/21/2011 6:20 AM PDT) + + + + + + | Component | Value | Ref Range | Performed | Pathologist | | | | | At | Signature | + + + + + + | Glucose | 90 | 70 - 109 mg/dL | [facility] | | | | | | [facility] | | | | | | MEDICAL | | | | | | CENTER - | | | | | | LABORATORY | | + + + + + + | Calcium | 9.0 | 8.3 - 10.5 | [facility] | | | | | mg/dL | [facility] | | | | | | [facility] | | | | | | CENTER - | | | | | | LABORATORY | | + + + + + + | BUN | 3 (L) | 7 - 18 mg/dL | [facility] | | | | | | [facility] | [facility] | [facility] | [facility] | | | | | | [facility] - | | | | | | LABORATORY | | + + + + + + | Creatinine | 0.57 (L) | 0.60 - 1.30 | [facility] | [...] + + + + | BUN/Creatin | 5.3 (L) | 12 - 20 | [facility] [...] + + + + | Cl | 103 | 98 - 109 mEq/l | [facility] [...] + + + | Anion Gap | 11.0 | 6.0 - 17.0 | [facility] | [...] | + + + + + | [facility] | [address] | [place] | [phone] | | [facility] | | [address] | | | - LABORATORY | | | | + + + + + | [facility] | [address] | [place], [place] | | | [facility] | | [address] | | | - LABORATORY | | | | + + + + + CBC with Differential (05/21/2011 6:20 AM PDT) + + + + + + | Component | Value | Ref Range | Performed | Pathologist | | | | | At | Signature | + + + + + + | White Blood | 4.7 (A) | 4.0 - 11.0 K/uL | [facility] | | | Cells | | | [facility] | | | | | | MEDICAL | | | | | | CENTER - | | | | | | LABORATORY | | + + + + + + | Red Blood | 3.44 (L) | 3.70 - 5.20 | [facility] | | | Cells | | M/uL | [facility] | | | | | | [facility] | | | | | | CENTER - | | | | | | LABORATORY | | + + + + + + | Hemoglobin | 9.9 (L) | 11.5 - 16.0 | [facility] | | | | | gm/dL | [facility] | | | | | | [facility] | | | | | | CENTER - | | | | | | LABORATORY | | + + + + + + | Hematocrit | 29.0 (L) | 34.0 - 47.0 % | [facility] | | | | | | [facility] | | | | | | MEDICAL | | | | | | CENTER - | | | | | | LABORATORY | | + + + + + + | MCV | 84.2 | 83.0 - 101.0 fL | [facility] | | | | | | [facility] | | | | | | MEDICAL | | | | | | CENTER - | | | | | | LABORATORY | | + + + + + + | MCH | 28.7 | 28.0 - 35.0 pg | [facility] | | | | | | [facility] | | | | | | MEDICAL | | | | | | CENTER - | | | | | | LABORATORY | | + + + + + + | MCHC | 34.1 | 32.0 - 36.0 | [facility] | | | | | g/dL | [facility] | | | | | | MEDICAL | | | | | | CENTER - | | | | | | LABORATORY | | + + + + + + | RDW-CV | 14.7 | <15.0 % | [facility] | | | | | | [facility] | | | | | | MEDICAL | | | | | | CENTER - | | | | | | LABORATORY | | + + + + + + | Platelet | 239 | 140 - 440 K/uL | [facility] | | | Count | | | [facility] | | | | | | MEDICAL | | | | | | CENTER - | | | | | | LABORATORY | | + + + + + + | % | 62.7 | 45 - 75 % | [facility] | | | Neutrophils | | | [facility] | | | | | | MEDICAL | | | | | | CENTER - | | | | | | LABORATORY | | + + + + + + | % | 31.7 | 20 - 45 % | [facility] | | | Lymphocytes | | | [facility] | | | | | | MEDICAL | | | | | | CENTER - | | | | | | LABORATORY | | + + + + + + | % Monocytes | 4.3 | 4 - 12 % | [facility] | | | | | | [facility] | | | | | | MEDICAL | | | | | | CENTER - | | | | | | LABORATORY | | + + + + + + | % | 0.7 | 0 - 5 % | [facility] | | | Eosinophils | | | [facility] | | | | | | MEDICAL | | | | | | CENTER - | | | | | | LABORATORY | | + + + + + + | % Basophils | 0.6 | 0 - 1 % | [facility] | | | | | | [facility] | | | | | | MEDICAL | | | | | | CENTER - | | | | | | LABORATORY | | + + + + + + | Absolute | 2.9 | 1.5 - 6.6 K/uL | [facility] | | | Neutrophils | | | [facility] | | | | | | MEDICAL | | | | | | CENTER - | | | | | | LABORATORY | | + + + + + + | Absolute | 1.5 | 0.6 - 3.2 K/uL | [facility] | | | Lymphocytes | | | [facility] | | | | | | MEDICAL | | | | | | CENTER - | | | | | | LABORATORY | | + + + + + + | Absolute | 0.2 | 0.0 - 1.0 K/uL | [facility] | | | Monocytes | | | [facility] | | | | | | MEDICAL | | | | | | CENTER - | | | | | | LABORATORY | | + + + + + + | Absolute | 0.0 | 0.0 - 0.4 K/uL | [facility] [...] + | [facility] | [address] | [place], [place] | [phone] | | [facility] | | [address] | | | - LABORATORY | | | | + + + + + | [facility] | [address] | [place], [place] | | | [facility] | | [address] [place] [address] | | | - LABORATORY | | | | + + + + + Cortisol, Post Stimulation, Random (05/20/2011 8:05 AM PDT) + + + + + + | Component | Value | Ref Range | Performed | Pathologist | | | | | At | Signature | + + + + + + | Cortisol, | 12.1Comment: | ug/dL | [facility] | | | Stim, | Normal post | | [facility] | | | Sample 3 | stimulation: >20.0 | | MEDICAL | | | | ug/dL | | CENTER - | | | | | | LABORATORY | | + + + + + + + + | Specimen | + + | | + + + + + + + | Performing | Address | City/State/Zipcode | Phone Number | | Organization | | | | + + + + + | [facility] | [address] | [place] | [phone] | | [facility] | | [address] | | | - LABORATORY | | | | + + + + + | [facility] | [address] | [place] | | | [facility] | | [address], [facility] | | | - LABORATORY | | | | + + + + + Adrenocorticotropic Hormone (05/20/2011 7:04 AM PDT) + + + + + + | Component | Value | Ref Range | Performed | Pathologist | | | | | At | Signature | + + + + + + | ACTH | 268 (H)Comment: 0 to 46 | 0 - 46 pg/mL | [facility] | | | | pg/mL for adults drawn | | [facility] | | | | between 7 and 10 a.m. | | MEDICAL | | | | Testing Performed: | | CENTER - | | | | [facility] | | LABORATORY | | | | [facility], [address] | | | | | | [address] [place] [address] | | | | | | CRYSTAL: [id number] | | | | + + + + + + + + | Specimen | + + | | + + + + + + + | Performing | Address | City/State/Zipcode | Phone Number | | Organization | | | | + + + + + | [facility] | [address] | [place] | [phone] | | [facility] | | [address] | | | - LABORATORY | | | | + + + + + | [facility] | [address] | [place], [place] | | | [facility] | | [address], [facility] | | | - LABORATORY | | | | + + + + + Cortisol, Post Stimulation, Random (05/20/2011 7:04 AM PDT) + +-------+ + + + | Component | Value | Ref Range | Performed | Pathologist | | | | | At | Signature | + +-------+ + + + | Cortisol, | 12.2 | ug/dL | [facility] | | | Stim, | | | [facility] | | | Sample 2 | | | MEDICAL | | | [...] + | [facility] | [address] | [place] | [phone] | | [facility] | | [address] | | | - LABORATORY | | | | + + + + + | [facility] | [address] | [place], [place] | | | [facility] | | [address] | | | - LABORATORY | | | | + + + + + Cortisol, Baseline (05/20/2011 7:04 AM PDT) + + + + + + | Component | Value | Ref Range | Performed | Pathologist | | | | | At | Signature | + + + + + + | CORTISOL | NDComment: Use AM | 6.7 - 22.6 | [facility] | | | BASE | Cortisol from 05/18/11 | ug/dL | [facility] | | | | as a baseline value for | | MEDICAL | | | | the stimulation test. | | CENTER - | | | | MEGAN-AM: 6.86 ug/dL | | LABORATORY | | | |MEGAN-AM: 6.86 ug/dL | | | | + + + + + + + + | Specimen | + + | | + + + + + + + | Performing | Address | City/State/Zipcode | Phone Number | | Organization | | | | + + + + + | [facility] | [address] | [place], [place] | [phone] | | [facility] | | [address] | | | - LABORATORY | | | | + + + + + | [facility] | [address] | [place], [place] | | | [facility] | | [id number] [place] [address] | | | - LABORATORY | | | | + + + + + Cortisol Stimulation, 3 Specimens (05/20/2011 7:04 AM PDT) + + | Specimen | + + | | + + + + + + + | Performing | Address | City/State/Zipcode | Phone Number | | Organization | | | | + + + + + | [facility] | [address] | [place] | [phone] | | [facility] | | [address] | | | - LABORATORY | | | | + + + + + Basic Metabolic Panel (05/20/2011 7:04 AM PDT) + + + + + + | Component | Value | Ref Range | Performed | Pathologist | | | | | At | Signature | + + + + + + | Glucose | 102 | 70 - 109 mg/dL | [facility] [...] + + + + | BUN | 5 (L) | 7 - 18 mg/dL | [facility] | | | | | | [facility] | | | | | | MEDICAL | | | | | | CENTER - | | | | | | LABORATORY | | + + + + + + | Creatinine | 0.57 (L) | 0.60 - 1.30 | [facility] | [...] + + + | Na | 128 (L) | 136 - 149 mEq/L | [facility] | | | | | | [facility] | | | | | | MEDICAL | | | | | | CENTER - | | | | | | LABORATORY | | + + + + + + | K | 4.2 | 3.5 - 5.1 mEq/l | [facility] | | | | | | [facility] | | | | | | MEDICAL | | | | | | CENTER - | | | | | | LABORATORY | | + + + + + + | Cl | 101 | 98 - 109 mEq/l | [facility] [...] + + + | Anion Gap | 7.2 | 6.0 - 17.0 | [facility] | [...] + | [facility] | [address] | [place] | [phone] | | [facility] | | [address] | | | - LABORATORY | | | | + + + + + | [facility] | [address] | [place], [place] | | | [facility] | | [address], [facility] | | | - LABORATORY | | | | + + + + + CBC no Differential (05/20/2011 7:04 AM PDT) + + + + + + | Component | Value | Ref Range | Performed | Pathologist | | | | | At | Signature | + + + + + + | White Blood | 5.3 (A) | 4.0 - 11.0 K/uL | [facility] | | | Cells | | | [facility] | | | | | | MEDICAL | | | | | | CENTER - | | | | | | LABORATORY | | + + + + + + | Red Blood | 3.77 | 3.70 - 5.20 | [facility] | | | Cells | | M/uL | [facility] | | | | | | MEDICAL | | | | | | CENTER - | | | | | | LABORATORY | | + + + + + + | Hemoglobin | 10.9 (L) | 11.5 - 16.0 | [facility] | | | | | gm/dL | [facility] | | | | | | MEDICAL | | | | | | CENTER - | | | | | | LABORATORY | | + + + + + + | Hematocrit | 31.7 (L) | 34.0 - 47.0 % | [facility] | | | | | | [facility] | | | | | | MEDICAL | | | | | | CENTER - | | | | | | LABORATORY | | + + + + + + | MCV | 84.2 | 83.0 - 101.0 fL | [facility] | | | | | | [facility] | | | | | | MEDICAL | | | | | | CENTER - | | | | | | LABORATORY | | + + + + + + | MCH | 29.0 | 28.0 - 35.0 pg | [facility] | | | | | | [facility] | | | | | | MEDICAL | | | | | | CENTER - | | | | | | LABORATORY | | + + + + + + | MCHC | 34.5 | 32.0 - 36.0 | [facility] | | | | | g/dL | [facility] | | | | | | MEDICAL | | | | | | CENTER - | | | | | | LABORATORY | | + + + + + + | RDW-CV | 14.5 | <15.0 % | [facility] | | | | | | [facility] | | | | | | MEDICAL | | | | | | CENTER - | | | | | | LABORATORY | | + + + + + + | Platelet | 282 | 140 - 440 K/uL | [facility] [...] + | [facility] | [address] | [place], [place] | [phone] | | [facility] | | [address] | | | - LABORATORY | | | | + + + + + | [facility] | [address] | [place] | | | [facility] | | [address], [facility] | | | - LABORATORY | | | | + + + + + Sedimentation Rate (05/20/2011 7:04 AM PDT) + +-------+ + + + | Component | Value | Ref Range | Performed | Pathologist | | | | | At | Signature | + +-------+ + + + | Erythrocyte | 11 | 0 - 30 mm/hr | [facility] | | | | | | [facility] | | | Sedimentati | | | MEDICAL | | | on Rate | | | CENTER - | | | | | | LABORATORY | | + +-------+ + + + + + | Specimen | + + | | + + + + + + + | Performing | Address | City/State/Zipcode | Phone Number | | Organization | | | | + + + + + | [facility] | [address] | [place], [place] | [phone] | | [facility] | | [address] | | | - LABORATORY | | | | + + + + + | [facility] | [address] | [place] | | | [facility] | | [address] [place] [address] | | | - LABORATORY | | | | + + + + + Basic Metabolic Panel (05/19/2011 10:12 AM PDT) + + + + + + | Component | Value | Ref Range | Performed | Pathologist | | | | | At | Signature | + + + + + + | Glucose | 203 (H) | 70 - 109 mg/dL | [facility] | | | | | | [facility] | | | | | | [facility] | | | | | | [facility] - | | | | | | LABORATORY | | + + + + + + | Calcium | 8.7 | 8.3 - 10.5 | [facility] | | | | | mg/dL | [facility] | | | | | | [facility] | | | | | | [facility] - | | | | | | LABORATORY | | + + + + + + | BUN | 7 | 7 - 18 mg/dL | [facility] | | | | | | [facility] | | | | | | [facility] | | | | | | CENTER - | | | | | | LABORATORY | | + + + + + + | Creatinine | 0.74 | 0.60 - 1.30 | [facility] | | | | | mg/dL | [facility] | | | | | | [facility] | | | | | | C[facility] - | | | | | | LABORATORY | | + + + + + + | Estimated | >60Comment: For | >60 mL/min/A | [facility] | | | GFR | -Americans, | [...] + + + + | BUN/Creatin | 9.5 (L) | 12 - 20 | [facility] | | | ine Ratio | | | [facility] | | | | | | [facility] | | | | | | CENTER - | | | | | | LABORATORY | | + + + + + + | Na | 123 (L) | 136 - 149 mEq/L | [facility] | | | | | | [facility] | | | | | | [facility] | | | | | | [facility] - | | | | | | LABORATORY | | + + + + + + | K | 3.9 | 3.5 - 5.1 mEq/l | [facility] | | | | | | [facility] | | | | | | [facility] | | | | | | [facility] - | | | | | | LABORATORY | | + + + + + + | Cl | 94 (L) | 98 - 109 mEq/l | [facility] | | | | | | [facility] | | | | | | [facility] | | | | | | [facility]ENTER - | | | | | | LABORATORY | | + + + + + + | CO2 | 22 (L) | 24 - 31 mEq/L | [facility] | | | | | | [facility] | | | | | | [facility] | | | | | | [facility] - | | | | | | LABORATORY | | + + + + + + | Anion Gap | 10.9 | 6.0 - 17.0 | [facility] | [...] + | [facility] | [address] | [place] | [phone] | | [facility] | | [address] | | | - LABORATORY | | | | + + + + + | [facility] | [address] | [place] | | | [facility] | | [id number] | | | - LABORATORY | | | | + + + + + CBC no Differential (05/19/2011 6:46 AM PDT) + +---------+ + + + | Component | Value | Ref Range | Performed | Pathologist | | | | | At | Signature | + +---------+ + + + | White Blood | 7.1 (A) | 4.0 - 11.0 K/uL | [facility] | | | Cells | | | [facility] | | | | | | [facility] | | | | | | CENTER - | | | | | | LABORATORY | | + +---------+ + + + | Red Blood | 4.44 | 3.70 - 5.20 | [facility] | | | Cells | | M/uL | [facility] | | | | | | [facility]ICAL | | | | | | CENTER - | | | | | | LABORATORY | | + +---------+ + + + | Hemoglobin | 12.8 | 11.5 - 16.0 | [facility] | | | | | gm/dL | [facility] | | | | | | [facility] | | | | | | CENTER - | | | | | | LABORATORY | | + +---------+ + + + | Hematocrit | 37.7 | 34.0 - 47.0 % | [facility] | | | | | | [facility] | | | | | | [facility] | | | | | | [facility] - | | | | | | LABORATORY | | + +---------+ + + + | MCV | 84.9 | 83.0 - 101.0 fL | [facility] | | | | | | [facility] | | | | | | [facility] | | | | | | [facility] - | | | | | | LABORATORY | | + +---------+ + + + | MCH | 28.8 | 28.0 - 35.0 pg | [facility] | | | | | | [facility] | | | | | | MEDICAL | | | | | | CENTER - | | | | | | LABORATORY | | + +---------+ + + + | MCHC | 33.9 | 32.0 - 36.0 | [facility] | | | | | g/dL | [facility] | | | | | | [facility] | | | | | | CENTER - | | | | | | LABORATORY | | + +---------+ + + + | RDW-CV | 14.4 | <15.0 % | [facility] | | | | | | [facility] | | | | | | [facility]ICAL | | | | | | CENTER - | | | | | | LABORATORY | | + +---------+ + + + | Platelet | 295 | 140 - 440 K/uL | [facility] | | | Count | | | [facility] | | | | | | [facility] | | | | | | CENTER - | | | | | | LABORATORY | | + +---------+ + + + + + | Specimen | + + | | + + + + + + + | Performing | Address | City/State/Zipcode | Phone Number | | Organization | | | | + + + + + | [facility] | [address] | [place] | [phone] | | [facility] | | [address] | | | - LABORATORY | | | | + + + + + | [facility] | [address] | [place] | | | [facility] | | [address], [facility] | | | - LABORATORY | | | | + + + + + Basic Metabolic Panel (05/18/2011 10:25 PM PDT) + + + + + + | Component | Value | Ref Range | Performed | Pathologist | | | | | At | Signature | + + + + + + | Glucose | 118 (H) | 70 - 109 mg/dL | [facility] | | | | | | [facility] | | | | | | MEDICAL | | | | | | CENTER - | | | | | | LABORATORY | | + + + + + + | Calcium | 9.0 | 8.3 - 10.5 | [facility] | | | | | mg/dL | [facility] | | | | | | MEDICAL | | | | | | CENTER - | | | | | | LABORATORY | | + + + + + + | BUN | 10 | 7 - 18 mg/dL | [facility] | | | | | | [facility] | | | | | | MEDICAL | | | | | | CENTER - | | | | | | LABORATORY | | + + + + + + | Creatinine | 0.97 | 0.60 - 1.30 | [facility] | | | | | mg/dL | [facility] | | | | | | MEDICAL | | | | | | CENTER - | | | | | | LABORATORY | | + + + + + + | Estimated | 58 (L)Comment: For | >60 mL/min/A | [facility] | [...] + + + + | BUN/Creatin | 10.3 (L) | 12 - 20 | [facility] [...] + + + + | K | 5.0 | 3.5 - 5.1 mEq/l | [facility] [...] + + + + | CO2 | 22 (L) | 24 - 31 mEq/L | [facility] | | | | | | [facility] | | | | | | MEDICAL | | | | | | CENTER - | | | | | | LABORATORY | | + + + + + + | Anion Gap | 11.0 | 6.0 - 17.0 | [facility] | [...] + | [facility] | [address] | [place], [place] | [phone] | | [facility] | | [address] | | | - LABORATORY | | | | + + + + + | [facility] | [address] | [place], [place] | | | [facility] | | [id number] | | | - LABORATORY | | | | + + + + + Basic Metabolic Panel (05/18/2011 4:17 PM PDT) + + + + + + | Component | Value | Ref Range | Performed | Pathologist | | | | | At | Signature | + + + + + + | Glucose | 149 (H) | 70 - 109 mg/dL | [facility] | | | | | | [facility] | | | | | | MEDICAL | | | | | | CENTER - | | | | | | LABORATORY | | + + + + + + | Calcium | 9.2 | 8.3 - 10.5 | [facility] | | | | | mg/dL | [facility] | | | | | | MEDICAL | | | | | | CENTER - | | | | | | LABORATORY | | + + + + + + | BUN | 11 | 7 - 18 mg/dL | [facility] | | | | | [facility] | | | [facility] | [facility] | | | | | | C[facility] - | | | | | | LABORATORY | | + + + + + + | Creatinine | 0.96 | 0.60 - 1.30 | [facility] | | | | | mg/dL | [facility] | | | | | | MEDICAL | | | | | | CENTER - | | | | | | LABORATORY | | + + + + + + | Estimated | 59Comment: For | >60 mL/min/A | [facility] | | | GFR | -Americans, | | [facility] | | | | please multiply [...] + + + + | BUN/Creatin | 11.5 (L) | 12 - 20 | [facility] [...] + + + + | K | 4.1 | 3.5 - 5.1 mEq/l | [facility] | | | | | | [facility] | | | | | | MEDICAL | | | | | | CENTER - | | | | | | LABORATORY | | + + + + + + | Cl | 97 (L) | 98 - 109 mEq/l | [facility] | | | | | | [facility] | | | | | | MEDICAL | | | | | | CENTER - | | | | | | LABORATORY | | + + + + + + | CO2 | 23 (L) | 24 - 31 mEq/L | [facility] | | | | | | [facility] | | | | | | MEDICAL | | | | | | CENTER - | | | | | | LABORATORY | | + + + + + + | Anion Gap | 11.1 | 6.0 - 17.0 | [facility] | | | | | [...] [address] | [place] | [phone] | | [facility] | | [address] | | | - LABORATORY | | | | + + + + + | [facility] | [address] | [place] | | | [facility] | | [address], [facility] | | | - LABORATORY | | | | + + + + + Basic Metabolic Panel (05/18/2011 9:44 AM PDT) + + + + + + | Component | Value | Ref Range | Performed | Pathologist | | | | | At | Signature | + + + + + + | Glucose | 146 (H) | 70 - 109 mg/dL | [facility] | | | | | | [facility] | | | | | | MEDICAL | | | | | | CENTER - | | | | | | LABORATORY | | + + + + + + | Calcium | 9.1 | 8.3 - 10.5 | [facility] | | | | | mg/dL | [facility] | | | | | | MEDICAL | | | | | | CENTER - | | | | | | LABORATORY | | + + + + + + | BUN | 7 | 7 - 18 mg/dL | [facility] | | | | | | [facility] | | | | | | MEDICAL | | | | | | CENTER - | | | | | | LABORATORY | | + + + + + + | Creatinine | 0.82 | 0.60 - 1.30 | [facility] | | | | | mg/dL | [facility] | | | | | | MEDICAL | | | | | | CENTER - | | | | | | LABORATORY | | + + + + + + | Estimated | >60Comment: For | >60 mL/min/A | [facility] | | | GFR | -Americans, | [...] + + + + | BUN/Creatin | 8.5 (L) | 12 - 20 | [facility] | | | ine Ratio | | | [facility] | | | | | | MEDICAL | | | | | | CENTER - | | | | | | LABORATORY | | + + + + + + | Na | 123 (L) | 136 - 149 mEq/L | [facility] | | | | | | [facility] | | | | | | MEDICAL | | | | | | CENTER - | | | | | | LABORATORY | | + + + + + + | K | 4.3 | 3.5 - 5.1 mEq/l | [facility] | | | | | | [facility] | | | | | | MEDICAL | | | | | | CENTER - | | | | | | LABORATORY | | + + + + + + | Cl | 92 (L) | 98 - 109 mEq/l | [facility] | | | | | | [facility] | | | | | | MEDICAL | | | | | | CENTER - | | | | | | LABORATORY | | + + + + + + | CO2 | 23 (L) | 24 - 31 mEq/L | [facility] | | | | | | [facility] | | | | | | MEDICAL | | | | | | CENTER - | | | | | | LABORATORY | | + + + + + + | Anion Gap | 12.3 | 6.0 - 17.0 | [facility] | [...] + | [facility] | [address] | [place] | [phone] | | [facility] | | [address] | | | - LABORATORY | | | | + + + + + | [facility] | [address] | [place], [place] | | | [facility] | | [address] [place] [address] | | | - LABORATORY | | | | + + + + + CBC no Differential (05/18/2011 5:09 AM PDT) + + + + + + | Component | Value | Ref Range | Performed | Pathologist | | | | | At | Signature | + + + + + + | White Blood | 6.1 (A) | 4.0 - 11.0 K/uL | [facility] | | | Cells | | | [facility] | | | | | | MEDICAL | | | | | | CENTER - | | | | | | LABORATORY | | + + + + + + | Red Blood | 4.24 | 3.70 - 5.20 | [facility] | | | Cells | | M/uL | [facility] | | | | | | MEDICAL | | | | | | CENTER - | | | | | | LABORATORY | | + + + + + + | Hemoglobin | 12.1 | 11.5 - 16.0 | [facility] | | | | | gm/dL | [facility] | | | | | | MEDICAL | | | | | | CENTER - | | | | | | LABORATORY | | + + + + + + | Hematocrit | 35.3 (A) | 34.0 - 47.0 % | [facility] | | | | | | [facility] | | | | | | MEDICAL | | | | | | CENTER - | | | | | | LABORATORY | | + + + + + + | MCV | 83.3 | 83.0 - 101.0 fL | [facility] | | | | | | [facility] | | | | | | MEDICAL | | | | | | CENTER - | | | | | | LABORATORY | | + + + + + + | MCH | 28.5 | 28.0 - 35.0 pg | [facility] [...] + + + + | RDW-CV | 14.0 | <15.0 % | [facility] | | | | | | [facility] | | | | | | MEDICAL | | | | | | CENTER - | | | | | | LABORATORY | | + + + + + + | Platelet | 292 | 140 - 440 K/uL | [facility] [...] + | [facility] | [address] | [place] | [phone] | | [facility] | | [address] | | | - LABORATORY | | | | + + + + + | [facility] | [address] | [place], [place] | | | [facility] | | [address] | | | - LABORATORY | | | | + + + + + TSH (05/18/2011 5:09 AM PDT) + + + + + + | Component | Value | Ref Range | Performed | Pathologist | | | | | At | Signature | + + + + + + | TSH | 0.90Comment: Testing | 0.34 - 5.60 | [facility] | | | | performed on the Minnie | uIU/mL | [facility] | | | | [employer] | | MEDICAL | | | | Analyzer. | | CENTER - | | | | | | LABORATORY | | + + + + + + + + | Specimen | + + | | + + + + + + + | Performing | Address | City/State/Zipcode | Phone Number | | Organization | | | | + + + + + | [facility] | [address] | [place] | [phone] | | [facility] | | [address] | | | - LABORATORY | | | | + + + + + | [facility] | [address] | [place] | | | [facility] | | [address] | | | - LABORATORY | | | | + + + + + Hemoglobin A1C (05/18/2011 5:09 AM PDT) + + + + + + | Component | Value | Ref Range | Performed | Pathologist | | | | | At | Signature | + + + + + + | Hemoglobin | 6.5 (H)Comment: | 4.3 - 5.8 % | [facility] | | | A1c | DIABETIC PATIENT RANGES: | | [facility] | | | | 6.2-7.0% = Well | | MEDICAL | | | | Controlled | | CENTER - | | | | | | LABORATORY | | | | 7.0-9.0% = | | | | | | Intermediate | | | | | | | | | | | | | | | | | | >9.0% = Poorly | | | | | | Controlled | | | | + + + + + + + + | Specimen | + + | | + + + + + + + | Performing | Address | City/State/Zipcode | Phone Number | | Organization | | | | + + + + + | [facility] | [address] | [place], [place] | [phone] | | [facility] | | [address] | | | - LABORATORY | | | | + + + + + | [facility] | [address] | [place], [place] | | | [facility] | | [address] [place] [address] | | | - LABORATORY | | | | + + + + + Basic Metabolic Panel (05/18/2011 5:09 AM PDT) + + + + + + | Component | Value | Ref Range | Performed | Pathologist | | | | | At | Signature | + + + + + + | Glucose | 90 | 70 - 109 mg/dL | [facility] | | | | | | [facility] | | | | | | MEDICAL | | | | | | CENTER - | | | | | | LABORATORY | | + + + + + + | Calcium | 9.0 | 8.3 - 10.5 | [facility] | | | | | mg/dL | [facility] | | | | | | MEDICAL | | | | | | CENTER - | | | | | | LABORATORY | | + + + + + + | BUN | 8 | 7 - 18 mg/dL | [facility] | | | | | | [facility] | | | | | | MEDICAL | | | | | | CENTER - | | | | | | LABORATORY | | + + + + + + | Creatinine | 0.72 | 0.60 - 1.30 | [facility] | | | | | mg/dL | [facility] | | | | | | MEDICAL | | | | | | CENTER - | | | | | | LABORATORY | | + + + + + + | Estimated | >60Comment: For | >60 mL/min/A | [facility] | | | GFR | -Americans, | [...] + + + + | BUN/Creatin | 11.1 (L) | 12 - 20 | [facility] | | | ine Ratio | | | [facility] | | | | | | MEDICAL | | | | | | CENTER - | | | | | | LABORATORY | | + + + + + + | Na | 122 (L) | 136 - 149 mEq/L | [facility] | | | | | | [facility] | | | | | | MEDICAL | | | | | | CENTER - | | | | | | LABORATORY | | + + + + + + | K | 4.4 | 3.5 - 5.1 mEq/l | [facility] | | | | | | [facility] | | | | | | MEDICAL | | | | | | CENTER - | | | | | | LABORATORY | | + + + + + + | Cl | 92 (L) | 98 - 109 mEq/l | [...] + + + | Anion Gap | 10.4 | 6.0 - 17.0 | [facility] | [...] + | [facility] | [address] | [place], [place] | [phone] | | [facility] | | [address] | | | - LABORATORY | | | | + + + + + | [facility] | [address] | [place], [place] | | | [facility] | | [address], [facility] | | | - LABORATORY | | | | + + + + + Vitamin B-12 (05/18/2011 5:09 AM PDT) + + + + + + | Component | Value | Ref Range | Performed | Pathologist | | | | | At | Signature | + + + + + + | VITAMIN | 855Comment: | 180 - 914 pg/mL | [facility] | | | B-12 | | | [facility] | | | | DEFICIENT: | | MEDICAL | | | | <145 pg/mL | | CENTER - | | | | | | LABORATORY | | | | | | | | | | INDETERMINATE: 145-180 | | | | | | pg/mL Testing | | | | | | performed on the [employer] | | | | | | [employer] | | | | | | Analyzer. | | | | + + + + + + + + | Specimen | + + | | + + + + + + + | Performing | Address | City/State/Zipcode | Phone Number | | Organization | | | | + + + + + | [facility] | [address] | [place] | [phone] | | [facility] | | [address] | | | - LABORATORY | | | | + + + + + | [facility] | [address] | [place] | | | [facility] | | [address] | | | - LABORATORY | | | | + + + + + Cortisol, AM (05/18/2011 5:09 AM PDT) + +-------+ + + + | Component | Value | Ref Range | Performed | Pathologist | | | | | At | Signature | + +-------+ + + + | CORTISOL, | 6.86 | 6.7 - 22.6 | [facility] | | | AM | | ug/dL | [facility] | | | | | | MEDICAL [...] + | [facility] | [address] | [place] | [phone] | | [facility] | | [address] | | | - LABORATORY | | | | + + + + + | [facility] | [address] | [place] | | | [facility] | | [address], [facility] | | | - LABORATORY | | | | + + + + + XR Chest PA and Lateral (05/18/2011 3:14 AM PDT) + + | Specimen | + + | | + + + + + | Narrative | Performed At | + + + | [facility] Diagnostic Imaging Department | [facility] | | [address] [facility] | [facility] | | CHEST, PA AND LATERAL - | DIAG IMG | | 05/22/2011 CLINICAL HISTORY: Aspiration. COMPARISON: | | | 05/21/2011. FINDINGS: Frontal and lateral views of the | | | chest. There is a developing airspace process in the tasneem gula. | | | There may be a component in the left lower lobe with a small amount | | | of costophrenic angle blun ting. Right lung remains clear. No | | | pneumothorax. Cardiac and mediastinal contours are stable. | | | IMPRESSION: LINGULAR AND POSSIBLY LEFT LOWER LOBE AIRSPACE PROCESS | | | MAY BE ASSOCIATED WITH A SMALL EF FUSION. GIVEN THE HISTORY ON THE | | | PRIOR EXAM THIS IS CONCERNING FOR AN ASPIRATION RELATED PROCESS. | | | Dictated Date/Time: 05/22/2011 08:16 Transcribed Date/Time: | | | 05/22/2011 09:48 Inspector And Tester: <Electronically Signed | | | by Zachary Reynolds MD> 05/22/11 1604 | | + + + + + | Procedure Note | + + | Flavio, Rad Conversion - 10/07/2013 3:50 PM [facility] | | Diagnostic Imaging Department [address] [place] [address] | | CHEST, PA AND LATERAL - 05/22/2011 CLINICAL HISTORY: | | Aspiration. COMPARISON: 05/21/2011. FINDINGS: Frontal and lateral views of the | | chest. There is a developing airspace process in the lingula. There may be a component | | in the left lower lobe with a small amount of costophrenic angle blunting. Right lung | | remains clear. No pneumothorax. Cardiac and mediastinal contours are stable. | | IMPRESSION: LINGULAR AND POSSIBLY LEFT LOWER LOBE AIRSPACE PROCESS MAY BE ASSOCIATED | | WITH A SMALL EFFUSION. GIVEN THE HISTORY ON THE PRIOR EXAM THIS IS CONCERNING FOR AN | | ASPIRATION RELATED PROCESS. Dictated Date/Time: 05/22/2011 08:16Transcribed | | Date/Time: 05/22/2011 09:48Transcriptionist: <Electronically Signed by Zachary Fields | | MD Gail> 05/22/11 1604 | |FINDINGS: Frontal and lateral views of the chest. There is a developing airspace process in the tasneem | |gula. There may be a component in the left lower lobe with a small amount of costophrenic angle blun | |ting. Right lung remains clear. No pneumothorax. Cardiac and mediastinal contours are st able. | | | |IMPRESSION: LINGULAR AND POSSIBLY LEFT LOWER LOBE AIRSPACE PROCESS MAY BE ASSOCIATED WITH A SMALL EF | |FUSION. GIVEN THE HISTORY ON THE PRIOR EXAM THIS IS CONCERNING FOR AN ASPIRATION RELATED P ROCESS. | | | | | |Dictated Date/Time: 05/22/2011 08:16 | |Transcribed Date/Time: 05/22/2011 09:48 | |Inspector And Tester: | |<Electronically Signed by Zachayr Reynolds MD> 05/22/11 1604 | + + + +---------+ + + | Performing | Address | City/State/Zipcode | Phone Number | | Organization | | | | + +---------+ + + | [facility] | | | | | [facility] | | | | + +---------+ + + XR Chest AP Portable (05/18/2011 3:14 AM PDT) + + | Specimen | + + | | + + + + + | Narrative | Performed At | + + + | [facility] Diagnostic Imaging Department | [facility] | | [address] [place] | [place] | | PORTABLE CHEST - 05/21/2011 | DIAG IMG | | CLINICAL HISTORY: Status post colonoscopy, coughing and | | | desaturation. Rule out aspiration. COMPARISON: 05/17/2011. | | | FINDINGS: Frontal view of the chest. There is a new parenchymal | | | opacity in the lingula. Right lung remains clear. No | | | pneumothorax. No large effusion. Cardiac and mediastinal contours | | | are stable. There is gaseous distension of the colon consistent | | | with the given history. S-shaped scoliosis. IMPRESSION: NEW | | | PARENCHYMAL OPACITY IN THE LEFT LUNG CENTERED NEAR THE LINGULA. THIS | | | IS CONCERNING F OR ASPIRATION RELATED PROCESS. COMMENT: | | | FINDINGS WERE DISCUSSED WITH WINSTON IN THE RECOVERY ROOM AT ABOUT 3:30 | | | P.M. Dictated Date/Time: 05/21/2011 15:34 Transcribed | | | Date/Time: 05/21/2011 16:25 Inspector And Tester: | | | <Electronically Signed by Zachary Reynolds MD> 05/21/11 1739 | | + + + + + | Procedure Note | + + | Flavio, Rad Conversion - 10/07/2013 3:50 PM [facility] | | Diagnostic Imaging Department [address] [facility] [place] | | PORTABLE CHEST - 05/21/2011 CLINICAL HISTORY: Status | | post colonoscopy, coughing and desaturation. Rule out aspiration. COMPARISON: | | 05/17/2011. FINDINGS: Frontal view of the chest. There is a new parenchymal opacity in | | the lingula. Right lung remains clear. No pneumothorax. No large effusion. Cardiac | | and mediastinal contours are stable. There is gaseous distension of the colon | | consistent with the given history. S-shaped scoliosis. IMPRESSION: NEW PARENCHYMAL | | OPACITY IN THE LEFT LUNG CENTERED NEAR THE LINGULA. THIS IS CONCERNING FOR ASPIRATION | | RELATED PROCESS. COMMENT: FINDINGS WERE DISCUSSED WITH WINSTON IN THE RECOVERY ROOM AT | | ABOUT 3:30 P.M. Dictated Date/Time: 05/21/2011 15:34Transcribed Date/Time: 05/21/2011 | | 16:25Transcriptionist: <Electronically Signed by Zachary Reynolds MD> 05/21/11 | | 1739 | | remains clear. No pneumothorax. No large effusion. Cardiac and mediastinal contours are stable. | |There is gaseous distension of the colon consistent with the given history. S-shaped scoli osis. | | | |IMPRESSION: NEW PARENCHYMAL OPACITY IN THE LEFT LUNG CENTERED NEAR THE LINGULA. THIS IS CO NCERNING F | |OR ASPIRATION RELATED PROCESS. | | | |COMMENT: FINDINGS WERE DISCUSSED WITH WINSTON IN THE RECOVERY ROOM AT ABOUT 3:30 P.M. | | | |Dictated Date/Time: 05/21/2011 15:34 | |Transcribed Date/Time: 05/21/2011 16:25 | |Inspector And Tester: | |<Electronically Signed by Zachary Reynolds MD> 05/21/11 6829 | + + + +---------+ + + | Performing | Address | City/State/Zipcode | Phone Number | | Organization | | | | + +---------+ + + | [place] | | | | | [facility] | | | | + +---------+ + + CT Abdomen Pelvis w Contrast (05/18/2011 3:14 AM PDT) + + | Specimen | + + | | + + + + + | Narrative | Performed At | + + + | [facility] Diagnostic Imaging Department | [facility] | | [address] [facility] | [facility] | | ENHANCED CT ABDOMEN AND PELVIS, | DIAG IMG | | 05/19/2011, 0739 HOURS CLINICAL HISTORY: PELVIC PAIN, WEIGHT | | | LOSS, AND HYPONATREMIA. COMPARISON: Lumbar radiographs | | | 04/04/2011, lumbar MRI 01/26/2011, chest radiograph 05/17/2011. | | | TECHNIQUE: Axial images are performed through the abdomen and pelvis | | | following the uneventful intravenous administration of 80 mL Isovue | | | 370 contrast, as well as oral contrast. Coronal and sagittal | | | reformations are also performed. ABDOMEN FINDINGS: There is mild | | | gaseous distention of the imaged distal thoracic esophagus. | | | Imaged lung bases and mediastinum are otherwise unremarkable. | | | There is mild, diffuse hypoattenuation of the liver, consistent | | | with fatty infiltration. The gallbladder is surgically absent. The | | | spleen, pancreas, adrenal glands, and kidneys are unremarkable. | | | There is no hydronephrosis. A segment of mid sigmoid colon is | | | decompressed and there is mild to moderate distention of the sigmoid | | | colon proximal to this level, which contains prominent formed | | | stool. Oral contrast has reached the descending colon at the time | | | of the study and there is no evidence of overt bowel obstruction. | | | Segments of nondilated, gas and oral contrast containing small bowel | | | are present throughout the abdomen, without suspicious bowel wall | | | thickening or mesenteric stranding. No stranding of the | | | pericolonic fat is evident. The appendix is not visualized and is | | | likely absent. No free air, free fluid, pathologic lymph node | | | enlargement, or hernia is evident. Minimal gas in the subcutaneous | | | tissues of the right periumbilical region favors a site of | | | medication administration. There is scattered aortoiliac | | | calcification. Leftward lumbar curvature persists. Diffuse | | | osteopenia is suggested. There is degenerative disk disease and | | | spondylosis within the mid to lower lumbar spine. PELVIS FINDINGS: | | | The bladder is mostly decompressed and not well evaluated. Low | | | attenuation cystic foci are noted in both adnexal regions, measuring | | | up to 1.2 cm bilaterally. Uterus is grossly unremarkable. No | | | free air, free fluid, pathologic lymph node enlargement or hernia is | | | evident. Calcifications in the bilateral gluteal subcutaneous | | | tissues are consistent with injection granulomata. Mild contour | | | irregularity and sclerosis involving the pubic symphysis are likely | | | degenerative. IMPRESSION: 1. DECOMPRESSION OF A SEGMENT OF THE | | | SIGMOID COLON WITH MILD TO MODERATE DISTENTION OF THE DESCENDING AND | | | SIGMOID COLON PROXIMAL TO THIS LEVEL AND ASSOCIATED STOOL | | | RETENTION. WHILE NO DEFINITE MASS OR PERICOLONIC FAT STRANDING IS | | | PRESENT TO RAISE SUSPICION FOR AN OBSTRUCTIVE PROCESS, ENDOSCOPIC | | | CORRELATION SHOULD BE CONSIDERED. 2. STATUS POST CHOLECYSTECTOMY | | | WITH PROBABLE APPENDECTOMY. 3. TINY LOW ATTENUATION BILATERAL | | | ADNEXAL CYSTS. 4. HYPOATTENUATION OF THE LIVER CONSISTENT WITH | | | FATTY INFILTRATION. 5. OSTEOPENIA, SCOLIOSIS, AND DEGENERATIVE | | | DISK DISEASE AND SPONDYLOSIS. Dictated Date/Time: 05/19/2011 | | | 08:50 Transcribed Date/Time: 05/19/2011 09:01 Inspector And Tester: | | | <Electronically Signed by Milton Alford MD> 05/19/11 1308 | | + + + + + | Procedure Note | + + | Flavio, Rad Conversion - 10/07/2013 3:50 PM [facility] | | Diagnostic Imaging Department | | [address] [facility] | | | | | | | | ENHANCED CT ABDOMEN AND PELVIS, 05/19/2011, 0739 HOURS | | | | CLINICAL HISTORY: PELVIC PAIN, WEIGHT LOSS, AND HYPONATREMIA. | | | | COMPARISON: Lumbar radiographs 04/04/2011, lumbar MRI 01/26/2011, chest | | radiograph 05/17/2011. | | | | TECHNIQUE: Axial images are performed through the abdomen and pelvis following | | the uneventful intravenous administration of 80 mL Isovue 370 contrast, as well | | as oral contrast. Coronal and sagittal reformations are also performed. | | | | ABDOMEN FINDINGS: There is mild gaseous distention of the imaged distal | | thoracic esophagus. Imaged lung bases and mediastinum are otherwise | | unremarkable. There is mild, diffuse hypoattenuation of the liver, consistent | | with fatty infiltration. The gallbladder is surgically absent. The spleen, | | pancreas, adrenal glands, and kidneys are unremarkable. There is no | | hydronephrosis. | | | | A segment of mid sigmoid colon is decompressed and there is mild to moderate | | distention of the sigmoid colon proximal to this level, which contains | | prominent formed stool. Oral contrast has reached the descending colon at the | | time of the study and there is no evidence of overt bowel obstruction. | | Segments of nondilated, gas and oral contrast containing small bowel are | | present throughout the abdomen, without suspicious bowel wall thickening or | | mesenteric stranding. No stranding of the pericolonic fat is evident. The | | appendix is not visualized and is likely absent. No free air, free fluid, | | pathologic lymph node enlargement, or hernia is evident. Minimal gas in the | | subcutaneous tissues of the right periumbilical region favors a site of | | medication administration. There is scattered aortoiliac calcification. | | Leftward lumbar curvature persists. Diffuse osteopenia is suggested. There is | | degenerative disk disease and spondylosis within the mid to lower lumbar spine. | | | | PELVIS FINDINGS: The bladder is mostly decompressed and not well evaluated. | | Low attenuation cystic foci are noted in both adnexal regions, measuring up to | | 1.2 cm bilaterally. Uterus is grossly unremarkable. No free air, free fluid, | | pathologic lymph node enlargement or hernia is evident. Calcifications in the | | bilateral gluteal subcutaneous tissues are consistent with injection | | granulomata. Mild contour irregularity and sclerosis involving the pubic | | symphysis are likely degenerative. | | | | IMPRESSION: | | 1. DECOMPRESSION OF A SEGMENT OF THE SIGMOID COLON WITH MILD TO MODERATE | | DISTENTION OF THE DESCENDING AND SIGMOID COLON PROXIMAL TO THIS LEVEL AND | | ASSOCIATED STOOL RETENTION. WHILE NO DEFINITE MASS OR PERICOLONIC FAT STRANDING | | IS PRESENT TO RAISE SUSPICION FOR AN OBSTRUCTIVE PROCESS, ENDOSCOPIC | | CORRELATION SHOULD BE CONSIDERED. | | | | 2. STATUS POST CHOLECYSTECTOMY WITH PROBABLE APPENDECTOMY. | | | | 3. TINY LOW ATTENUATION BILATERAL ADNEXAL CYSTS. | | | | 4. HYPOATTENUATION OF THE LIVER CONSISTENT WITH FATTY INFILTRATION. | | | | 5. OSTEOPENIA, SCOLIOSIS, AND DEGENERATIVE DISK DISEASE AND SPONDYLOSIS. | | | | Dictated Date/Time: 05/19/2011 08:50 | | Transcribed Date/Time: 05/19/2011 09:01 | | Inspector And Tester: | | <Electronically Signed by Milton Alford MD> 05/19/11 1308 | + + + +---------+ + + | Performing | Address | City/State/Zipcode | Phone Number | | Organization | | | | + +---------+ + + | [place] [facility] | | | | | [facility] | | | | + +---------+ + + XR Chest AP Portable (05/18/2011 3:14 AM PDT) + + | Specimen | + + | | + + + + + | Narrative | Performed At | + + + | [facility] Diagnostic Imaging Department | [facility] | | [address] [facility] | [facility] | | PORTABLE, SINGLE VIEW, UPRIGHT AP | DIAG IMG | | CHEST, 2320 HOURS, 05/17/2011 COMPARISON: 26 January. CLINICAL | | | HISTORY: VOMITING. FINDINGS: The lungs are clear. | | | Cardiomediastinal silhouette is normal. The visualized upper | | | abdomi nal structures demonstrate gas-filled borderline prominent | | | small and large bowel loops. There is no obvious free air. | | | IMPRESSION: 1. NEGATIVE CHEST. 2. ABNORMAL APPEARANCE OF | | | UPPER ABDOMINAL BOWEL LOOPS; CONSIDER CT OR DEDICATED ABDOMEN SERIES. | | | Dictated Date/Time: 05/18/2011 10:12 Transcribed Date/Time: | | | 05/18/2011 10:16 Inspector And Tester: RICHA <Electronically Signed | | | by Morgan Verdugo MD> 05/18/11 1245 | | + + + + + | Procedure Note | + + | Flavio, Rad Conversion - 10/07/2013 3:50 PM [facility] | | Diagnostic Imaging Department [address] [facility] | | PORTABLE, SINGLE VIEW, UPRIGHT AP CHEST, 2320 HOURS, | | 05/17/2011 COMPARISON: 26 January. CLINICAL HISTORY: VOMITING. FINDINGS: The lungs are | | clear. Cardiomediastinal silhouette is normal. The visualized upper abdominal | | structures demonstrate gas-filled borderline prominent small and large bowel loops. | | There is no obvious free air. IMPRESSION: 1. NEGATIVE CHEST. 2. ABNORMAL APPEARANCE | | OF UPPER ABDOMINAL BOWEL LOOPS; CONSIDER CT OR DEDICATED ABDOMEN SERIES. Dictated | | Date/Time: 05/18/2011 10:12Transcribed Date/Time: 05/18/2011 10:16Transcriptionist: | | <Electronically Signed by Morgan Verdugo MD> 05/18/11 1245 | |CLINICAL HISTORY: VOMITING. | | | |FINDINGS: The lungs are clear. Cardiomediastinal silhouette is normal. The visualized up per abdomi | |nal structures demonstrate gas-filled borderline prominent small and large bowel loops. Th ere is no | |obvious free air. | | | |IMPRESSION: | |1. NEGATIVE CHEST. | | | |2. ABNORMAL APPEARANCE OF UPPER ABDOMINAL BOWEL LOOPS; CONSIDER CT OR DEDICATED ABDOMEN SE SIMEON. | | | |Dictated Date/Time: 05/18/2011 10:12 | |Transcribed Date/Time: 05/18/2011 10:16 | |Inspector And Tester: | |<Electronically Signed by Morgan Verdugo MD> 05/18/11 1245 | + + + +---------+ + + | Performing | Address | City/State/Zipcode | Phone Number | | Organization | | | | + +---------+ + + | [facility] | | | | | [facility] | | | | + +---------+ + + CBC no Differential (05/18/2011 3:12 AM PDT) + +-------+ + + + | Component | Value | Ref Range | Performed | Pathologist | | | | | At | Signature | + +-------+ + + + | White Blood | 8.2 | 4.0 - 11.0 K/uL | [facility] | | | Cells | | | [facility] | | | | | | MEDICAL | | | | | | CENTER - | | | | | | LABORATORY | | + +-------+ + + + | Red Blood | 4.55 | 3.70 - 5.20 | [facility] | | | Cells | | M/uL | [facility] | | | | | | MEDICAL | | | | | | CENTER - | | | | | | LABORATORY | | + +-------+ + + + | Hemoglobin | 13.0 | 11.5 - 16.0 | [facility] | | | | | gm/dL | [facility] | | | | | | MEDICAL | | | | | | CENTER - | | | | | | LABORATORY | | + +-------+ + + + | Hematocrit | 38.4 | 34.0 - 47.0 % | [facility] | | | | | | [facility] | | | | | | MEDICAL | | | | | | CENTER - | | | | | | LABORATORY | | + +-------+ + + + | MCV | 84.4 | 83.0 - 101.0 fL | [facility] | | | | | | [facility] | | | | | | MEDICAL | | | | | | CENTER - | | | | | | LABORATORY | | + +-------+ + + + | MCH | 28.6 | 28.0 - 35.0 pg | [facility] | | | | | | [facility] | | | | | | MEDICAL | | | | | | CENTER - | | | | | | LABORATORY | | + +-------+ + + + | MCHC | 33.8 | 32.0 - 36.0 | [facility] | | | | | g/dL | [facility] | | | | | | MEDICAL | | | | | | CENTER - | | | | | | LABORATORY | | + +-------+ + + + | RDW-CV | 13.8 | <15.0 % | [facility] | | | | | | [facility] | | | | | | MEDICAL | | | | | | CENTER - | | | | | | LABORATORY | | + +-------+ + + + | Platelet | 300 | 140 - 440 K/uL | [facility] | | | Count | | | [facility] | | [...] + | [facility] | [address] | [place] | [phone] | | [facility] | | [address] | | | - LABORATORY | | | | + + + + + | [facility] | [address] | [place] | | | [facility] | | [address], [facility] | | | - LABORATORY | | | | + + + + + Electrolytes, Urine (05/17/2011 11:49 PM PDT) + + + + + + | Component | Value | Ref Range | Performed | Pathologist | | | | | At | Signature | + + + + + + | Sodium, | 63Comment: NO NORMAL | mEq/L | [facility] | | | Urine | RANGE FOR RANDOM URINE | | [facility] | | | Random | SPECIMEN | | MEDICAL | | | | | | CENTER - | | | | | | LABORATORY | | + + + + + + | Potassium, | 49Comment: NO NORMAL | mEq/L | [facility] | | | Urine | RANGE FOR RANDOM URINE | | [facility] | | | (mmol/L) | SPECIMEN | | MEDICAL | | | | | | CENTER - | | | | | | LABORATORY | | + + + + + + | Chloride, | 31Comment: NO NORMAL | mEq/L | [facility] | | | Urine | RANGE FOR RANDOM URINE | | [facility] | | | | SPECIMEN | | MEDICAL | | | | [...] + | [facility] | [address] | [place] | [phone] | | [facility] | | [address] | | | - LABORATORY | | | | + + + + + | [facility] | [address] | [place] | | | [facility] | | [address], [facility] | | | - LABORATORY | | | | + + + + + Comprehensive Metabolic Panel (05/17/2011 10:56 PM PDT) + + + + + + | Component | Value | Ref Range | Performed | Pathologist | | | | | At | Signature | + + + + + + | Glucose | 101 | 70 - 109 mg/dL | [facility] [...] + + + + | Alkaline | 60 | 40 - 110 IU/L | [facility] | | | Phosphatase | | | [facility] | | | | | | MEDICAL | | | | | | CENTER - | | | | | | LABORATORY | | + + + + + + | AST | 32 | 10 - 42 IU/L | [facility] | | | | | | [facility] | | | | | | MEDICAL | | | | | | CENTER - | | | | | | LABORATORY | | + + + + + + | ALT | 38 | 6 - 45 IU/L | [facility] | | | | | | [facility] | | | | | | MEDICAL | | | | | | CENTER - | | | | | | LABORATORY | | + + + + + + | Bilirubin | 2.9 (H) | 0.2 - 1.0 mg/dL | [facility] | | | Total | | | [facility] | | | | | | MEDICAL | | | | | | CENTER - | | | | | | LABORATORY | | + + + + + + | Total | 6.7 | 6.0 - 7.8 gm/dL | [facility] | | | Protein | | | [facility] | | | | | | MEDICAL | | | | | | CENTER - | | | | | | LABORATORY | | + + + + + + | Albumin | 3.9 | 3.2 - 5.0 gm/dL | [facility] | | | | | | [facility] | | | | | | MEDICAL | | | | | | CENTER - | | | | | | LABORATORY | | + + + + + + | BUN | 11 | 7 - 18 mg/dL | [facility] | | | | | | [facility] | | | | | | MEDICAL | | | | | | CENTER - | | | | | | LABORATORY | | + + + + + + | Creatinine | 0.83 | 0.60 - 1.30 | [facility] | | | | | mg/dL | [facility] | | | | | | MEDICAL | | | | | | CENTER - | | | | | | LABORATORY | | + + + + + + | Estimated | >60Comment: For | >60 mL/min/A | [facility] | | | GFR | -Americans, | [...] + + + + | BUN/Creatin | 13.3 | 12 - 20 | [facility] | | | ine Ratio | | | [facility] | | | | | | MEDICAL | | | | | | CENTER - | | | | | | LABORATORY | | + + + + + + | Na | 115 (LL)Comment: | 136 - 149 mEq/L | [facility] | | | | | | [facility] | | | | ALERT VALUE | | MEDICAL | | | | DO NOT DISCARD WRITTEN | | CENTER - | | | | DOCUMENTATION. PLACE IN | | LABORATORY | | | | NURSING NOTES Nursing | | | | | | documentation will NOT | | | | | | be included on Summary | | | | | | Report @TELEPHONE | | | | | | NOTIFICATION? 05/17/11 | | | | | | @2316 by DAVIS | | | | | | Clinical Provider | | | | | | notification at Nurses | | | | | | discretion Report | | | | | | by Nursing Staff to | | | | | | Clinical Provider who | | | | | | will act/intervene on | | | | | | this value: Nurse | | | | | | Calling Result: | | | | | | | | | | | | Date/Time: | | | | | | Provider or licensee | | | | | | called: | | | | | | | | | | | | Time Provider | | | | | | called/paged: | | | | | | Time spoke to | | | | | | Provider: | | | | + + + + + + | K | 4.5 | 3.5 - 5.1 mEq/l | [facility] | | | | | | [facility] | | | | | | MEDICAL | | | | | | CENTER - | | | | | | LABORATORY | | + + + + + + | Cl | 84 (L) | 98 - 109 mEq/l | [facility] | | | | | | [facility] | | | | | | MEDICAL | | | | | | CENTER - | | | | | | LABORATORY | | + + + + + + | CO2 | 23 (L) | 24 - 31 mEq/L | [facility] | | | | | [facility] | | | | | | MEDICAL | | | | | | CENTER - | | | | | | LABORATORY | | + + + + + + | Anion Gap | 12.5Comment: VERIFIED BY | 6.0 - 17.0 | [facility] | | | | REPEAT ANALYSIS | | [facility] | | | [...] + + | [facility] | [address] | [place] | [phone] | | [facility] | | [address] | | | - LABORATORY | | | | + + + + + | [facility] | [address] | [place] | | | [facility] | | [id number] | | | - LABORATORY | | | | + + + + + Magnesium (05/17/2011 10:56 PM PDT) + +-------+ + + + | Component | Value | Ref Range | Performed | Pathologist | | | | | At | Signature | + +-------+ + + + | Magnesium | 2.0 | 1.8 - 2.5 mg/dL | [facility] | | | | | | [facility] | | | | | | MEDICAL [...] + | [facility] | [address] | [place], [place] | [phone] | | [facility] | | [address] | | | - LABORATORY | | | | + + + + + | [facility] | [address] | [place], [place] | | | [facility] | | [address], [facility] | | | - LABORATORY | | | | + + + + + Phosphorus (05/17/2011 10:56 PM PDT) + +-------+ + + + | Component | Value | Ref Range | Performed | Pathologist | | | | | At | Signature | + +-------+ + + + | Phosphorus | 3.1 | 2.5 - 4.6 mg/dL | [facility] | | | | [...] + | [facility] | [address] | [place] | [phone] | | [facility] | | [address] | | | - LABORATORY | | | | + + + + + | [facility] | [address] | [place] | | | [facility] | | [id number] | | | - LABORATORY | | | | + + + + + documented in this encounter Visit Diagnoses Not on filedocumented in this encounter"
--- OUTSIDE RECORDS SUMMARY | ~2020-05-21 | XMS | Encounter Summary ---
Demographics + + + | Address | [address] | | | [place] [address] | + + + | Home Phone | | + + + | Preferred Language | Unknown | + + + | Marital Status | Single | + + + | Cheondoism Affiliation | CAT | + + + | Race | White | + + + | Ethnic Group | Not or | + + + Author + + + | Author | [facility] | + + + | Organization | [facility] | + + + | Address | Unknown | + + + | Phone | Unavailable | + + + Support + + +---------+ + | Name | Relationship | Address | Phone | + + +---------+ + | Douglas Springer | ECON | Unknown | | + + +---------+ + Care Team Providers + +------+ + | Care Sole Leveler Machine Name | Role | Phone | + +------+ + | Juan Dong MD | PCP | | + +------+ + Encounter Details +--------+ + + + + | Date | Type | Department | Care Team | Description | +--------+ + + + + | 07/07/ | Procedure | [address] | | | | 2016 | Pass | [address] | | | | | | [facility] | | | | | | Ambulatory Surgery | | | | | | Admitting Desk | | | | | | Located on the 4th | | | | | | floor, Room [facility] | | | | | | [place], [place] | | | | | | [address] | | | +--------+ + + + [...]
--- OUTSIDE RECORDS SUMMARY | ~2020-05-21 | XMS | Encounter Summary ---
Demographics + + + | Address | [address] | | | [place] [address] | + + + | Home Phone [...] Team Providers + +------+ + | Care Experience Design Director Name | Role | Phone | + +------+ + | Mick Malik MD | PCP | | + +------+ + Reason for Visit + +--------+ + | Reason | Onset | Comments | | | Date | | + +--------+ + | Appointment | 05/09/ | now needs colonoscopy, r/s'd to 05/31/2019 | | | 2019 | | + +--------+ + Encounter Details +--------+ + + + + | Date | Type | Department | Care Team | Description | +--------+ + + + + | 05/09/ | Telephone | [facility] | Zachary Ramírez MD | Appointment (now | | 2019 | | GASTROENTEROLOGY | [address] [place] | needs colonoscopy, | | | | [address] [place] | [address] [place] | r/s'd to 05/31/2019) | | | | [address] [place] | [address] | | | | | [address] | | | | | | [phone] | | | +--------+ + + + [...] this encounter Miscellaneous Notes Telephone Encounter - Brittanie Rutherford RN - 05/10/2019 10:34 AM PDTPositive Cologuard received at our office. Case changed to include colonoscopy and rescheduled to May 31. Supre bowel prep ordered and instructions mailed to patient. elephone Encounter - Brittanie Rutherford RN - 05/09/2019 1:16 PM PDTSpoke with patient and informed her we are still waiting for that fa x from Dr. Malik's office with a positive Cologuard. Informed her that per Dr. Ramírez if Cologuard is indeed positive she should have colonoscopy along with her upper endoscopy. Re scheduled these 2 procedures to May 31 checking in at 10 AM. Will use propofol sedation. Patient states after previous surgeries such as her gallbladder she had vomiting after the sedation. When she had her parathyroid surgery at [facility] they put a scopolamine pat ch on and she did fine. She will discuss this with the anesthesiologist prior to her proced ure. Scheduling notified of change in date and need to add colonoscopy bowel prep ordered, she denied need for Zofran to take during the prep. states she had an echocardiogram perfor med through [place] [facility] but she has not received results yet. She will make sure that a copy of this study is sent to our office. elephone Encounter - Brittanie Rutherford RN - 05/09/2019 9:53 AM PDTTrudy call saying Dr. Malik's office called her this morning with a positive Colog uard result. Patient is scheduled for upper endoscopy tomorrow. She asks Dr. Ramírez's opini on if she should put off the upper endoscopy and have both done at a later date.Cell [phone] documented in this encounter Plan of Treatment Not on filedocumented as of this encounter Visit Diagnoses Not on filedocumented in this encounter"
--- OUTSIDE RECORDS SUMMARY | ~2020-05-21 | XMS | Encounter Summary ---
Demographics + + + | Address | [address] | | | [place] [address] | + + + | Home Phone | | + + + | Preferred Language | Unknown | + + + | Marital Status | Single | + + + | Caodaism Affiliation | [id number] | + + + | Race | White | + + + | Ethnic Group | Not or | + + + Author + + + | Author | [facility] | | | and [place] | + + + | Organization | [facility] | | | and [...] Team Providers + +------+ + | Care Inspector Final Assembly Conveyor Line Name | Role | Phone | + +------+ + | Mick Malik MD | PCP | | + +------+ + Reason for Visit + +--------+ + | Reason | Onset | Comments | | | Date | | + +--------+ + | Results, Pathology | 06/06/ | egd,colon | | | 2018 | | + +--------+ + Encounter Details +--------+ + + + + | Date | Type | Department | Care Team | Description | +--------+ + + + + | 06/06/ | Telephone | [facility] | Zachary Ramírez MD | Results, Pathology | | 2018 | | GASTROENTEROLOGY | [address], [place] | (egd,colon) | | | | [address] [place] | [address] [place] | | | | | [address] [place], [place] | [address] | | | | | [address] | | | | | | [phone] | | | +--------+ + + + [...] Telephone Encounter - Brittanie Rutherford RN - 06/06/2019 12:17 PM PDTNotified patient th at H Pylori biopsy from stomach was negative. Biopsies of the gastric polyp were negative. Lower esophageal biopsies positive for reflux, negative for Bolanos's. Per Dr. Ramírez, no c hange in her medication for reflux. She is taking pantoprazole 2 hours before bedtime. Pat hology on colon polyp negative, showed early tubular adenoma. Notified patient she should h ave repeat colonoscopy in [address] Ramírez asked if she is interested in surgery for the reflux. Patient states she is doing much better taking pantoprazole in the evening and her symptoms are controlled now. 1 2:25 PM PDTTelephone Encounter - Brittanie Rutherford RN - 06/06/2019 12:17 PM PDT----- Salomon lalito from Zachary Ramírez MD sent at 06/04/2019 10:16 PDT ----- The patient underwent upper endoscopy and colonoscopy for evaluation of reflux positive Cor suri. 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 H. pylori biopsy was nega tive biopsies of PPI polyps confirm the same. Distal esophageal biopsies were positive for reflux negative for definitive Bolanos's metaplasia. A polyp removed from the sigmoid colon had an adenomatous features. The patient should continue on her PPI therapy for reflux. G iven her patulous EG junction patient is a candidate for surgical treatment of reflux if she is interested. She should have a follow-up colonoscopy in 5 years documented in this encounter Plan of Treatment Not on filedocumented as of this encounter Visit Diagnoses Not on filedocumented in this encounter"
--- OUTSIDE RECORDS SUMMARY | ~2020-05-21 | XMS | Encounter Summary ---
Demographics + + + | Address | [address] | | | [place] [address] | + + + | Home Phone | | + + + | Preferred Language | Unknown | + + + | Marital Status | Single | + + + | Nondenominational Affiliation | 1041 | + + + | Race | White | + + + | Ethnic Group | Not or | + + + Author + + + | Author | [facility] | | | and [place] | + + + | Organization | [facility] | | | [...] Team Providers + +------+ + | Care Stock Digger Name | Role | Phone | + +------+ + | Mick Malik MD | PCP | | + +------+ + Reason for Visit + +--------+ + | Reason | Onset | Comments | | | Date | | + +--------+ + | Referral | 04/07/ | egd scheduled | | | 2018 | | + +--------+ + Encounter Details +--------+ + + + + | Date | Type | Department | Care Team | Description | +--------+ + + + + | 04/07/ | Telephone | [facility] | Zachary Ramírez MD | Referral (egd | | 2018 | | GASTROENTEROLOGY | [address] [place] | scheduled) | | | | [address] [place] | [address] [place] | | | | | [address] [place] | [address] | | | | | [address] | | | | | | [phone] | | | +--------+ + + + [...] Telephone Encounter - Brittanie Rutherford RN - 04/07/2019 9:50 AM PDTSpoke with patient and scheduled upper endoscopy for May 10 checking in at 9 AM. Patient was in terested in colon cancer screening but she had aspiration with her last colonoscopy and asks if Cologuard is an option. Patient has a son with Crohn's disease but no history of colon cancer or polyps. Called pt and left message that per Dr. Desiree salazar for patient to do Cologuard through PCP s office or our office. Upper endoscopy ordered and instructions and map mailed to patientE lectronically signed by Brittanie Rutherford RN at 04/07/2019 9:59 AM PDTdocumented in this encounter Plan of Treatment Not on filedocumented as of this encounter Visit Diagnoses + + | Diagnosis | + + | Gastroesophageal reflux disease, esophagitis presence not specified - Primary | + + | Weight loss, unintentional Loss of weight | + + | Insomnia, unspecified type | + + | Hx of aspiration pneumonitis Personal history of other diseases of respiratory system | + + documented in this encounter"
--- OUTSIDE RECORDS SUMMARY | ~2020-05-21 | XMS | Encounter Summary ---
Demographics + + + | Address | [address] | | | [place] [address] | + + + | Home Phone | | + + + | Preferred Language | Unknown | + + + | Marital Status | Single | + + + | Christian Affiliation | 1041 | + + + | Race | White | + + + | Ethnic Group | Not or | + + + Author + + + | Author | [facility] | | | and [place] | + + + | Organization | [facility] | | | [...] Team Providers + +------+ + | Care Hand Weaver Name | Role | Phone | + +------+ + PCP | Unavailable | + +------+ + Encounter Details +--------+ + + + + | Date | Type | Department | Care Team | Description | +--------+ + + + + | 04/22/ | Hospital | [facility] | Charles Tariq | | | 2010 | Encounter | MED CTR XRAY [address] | | | | | [place] | [address] [place], [place] | | | | | [place] [address] | [address] | | | | | [phone] | | | +--------+ + + + [...] | + +--------+ + + + | FL FACET INJECTION | | 04/22/2011 | | Results for this | | | | 2:16 PM | | procedure are in the | | | | PDT | | results section. | + +--------+ + + + documented in this encounter Results FL Facet Injection (04/22/2011 2:16 PM PDT) + + | Specimen | + + | | + + + + + | Narrative | Performed At | + + + | [facility] | [facility] | | [address] [facility] | [facility] | | 04/22/2011, LUMBAR FACET | DIAG IMG | | INJECTIONS AND SACROILIAC JOINT INJECTIONS CLINICAL HISTORY: | | | ICD-9 CODE IS 721.3, LUMBAR SPONDYLOSIS, AND 720.2, SACROILIITIS. | | | FINDINGS: Ms. Joselyn Leung presents to the fluoroscopy suite for | | | fluoroscopically guided bilateral L4 -L5 facet injections as part of | | | conservative management for chronic low back pain and lumbar spondylo | | | sis. Also for bilateral sacroiliac joint injections for chronic low | | | back pain and sacroiliitis. Aft er informed consent was obtained | | | the patient laid in the prone position on the fluoroscopy table. Th | | | e areas were identified under fluoroscopic guidance. The areas were | | | prepped and draped in sterile fa shion. A 25 gauge 1-1/2 inch | | | needle was inserted into each region and approximately 3 mL of | | | buffered 1% lidocaine was infused. Then a 22 gauge spinal needle | | | was inserted into the superior portion of e ach facet under | | | fluoroscopic guidance. Confirmation into the joint spaces was | | | obtained with the infu ousmane of approximately 0.5 mL of Isovue | | | contrast which showed outline of the facet joints. Then a 22 gauge | | | spinal needle was inserted into the inferior portion of each | | | sacroiliac joint under fluoroscopi c guidance. Confirmation into | | | the joint space was obtained with the infusion of approximately 0.5 | | | m L of Isovue contrast which showed outline of the sacroiliac joints. | | | Then a combination of 2 mL of 1% lidocaine and 2 mL of 40 mg per | | | milliliter Kenalog was infused divided between the four sites. The | | | patient tolerated the procedure without complications. Pre- and | | | post procedure blood pressures were stable. The patient was given | | | verbal as well as written followup instructions. The patient | | | reported no significant change in pain symptoms post procedure. | | | Prior to the start of the procedure the following were performed and | | | verified including correct patie nt identity, correct site/side | | | marked and visible, agreement of the procedure to be done, correct pat | | | ient positioning and an accurate procedure consent form. Any | | | safety precautions based on clinical hi story and/or medications have | | | been addressed. I personally performed the procedure above. | | | Dictated Date/Time: 04/22/2011 17:56 Transcribed Date/Time: | | | 04/22/2011 18:18 Manager Market Development: <Electronically Signed | | | by Charles Tariq MD> 04/23/11 1822 | | + + + + + | Procedure Note | + + | Flavio, Rad Conversion - 10/07/2013 3:39 PM [facility] | | Diagnostic Imaging Department [address] [place] [address] | | 04/22/2011, LUMBAR FACET INJECTIONS AND SACROILIAC JOINT | | INJECTIONS CLINICAL HISTORY: ICD-9 CODE IS 721.3, LUMBAR SPONDYLOSIS, AND 720.2, | | SACROILIITIS. FINDINGS: Ms. Joselyn Leung presents to the fluoroscopy suite for | | fluoroscopically guided bilateral L4-L5 facet injections as part of conservative | | management for chronic low back pain and lumbar spondylosis. Also for bilateral | | sacroiliac joint injections for chronic low back pain and sacroiliitis. After informed | | consent was obtained the patient laid in the prone position on the fluoroscopy table. | | The areas were identified under fluoroscopic guidance. The areas were prepped and | | draped in sterile fashion. A 25 gauge 1-1/2 inch needle was inserted into each region | | and approximately 3 mL of buffered 1% lidocaine was infused. Then a 22 gauge spinal | | needle was inserted into the superior portion of each facet under fluoroscopic guidance. | | Confirmation into the joint spaces was obtained with the infusion of approximately 0.5 | | mL of Isovue contrast which showed outline of the facet joints. Then a 22 gauge spinal | | needle was inserted into the inferior portion of each sacroiliac joint under | | fluoroscopic guidance. Confirmation into the joint space was obtained with the | | infusion of approximately 0.5 mL of Isovue contrast which showed outline of the | | sacroiliac joints. Then a combination of 2 mL of 1% lidocaine and 2 mL of 40 mg per | | milliliter Kenalog was infused divided between the four sites. The patient tolerated | | the procedure without complications. Pre- and post procedure blood pressures were | | stable. The patient was given verbal as well as written followup instructions. The | | patient reported no significant change in pain symptoms post procedure. Prior to the | | start of the procedure the following were performed and verified including correct | | patient identity, correct site/side marked and visible, agreement of the procedure to be | | done, correct patient positioning and an accurate procedure consent form. Any safety | | precautions based on clinical history and/or medications have been addressed. I | | personally performed the procedure above. Dictated Date/Time: 04/22/2011 | | 17:56Transcribed Date/Time: 04/22/2011 18:18Transcriptionist: <Electronically | | Signed by Charles Tariq MD> 04/23/111821 | |story and/or medications have been addressed. | | | |I personally performed the procedure above. | | | |Dictated Date/Time: 04/22/2011 17:56 | |Transcribed Date/Time: 04/22/2011 18:18 | |Manager Market Development: | |<Electronically Signed by Charles Tariq MD> 04/23/11 182 | + + + +---------+ + + | Performing | Address | City/State/Zipcode | Phone Number | | Organization | | | | + +---------+ + + | [facility] | | | | | [place] | | | | + +---------+ + + documented in this encounter Visit Diagnoses Not on filedocumented in this encounter"
--- OUTSIDE RECORDS SUMMARY | ~2020-05-21 | XMS | Encounter Summary ---
Demographics + + + | Address | [address] | | | [place] [address] | + + + | Home Phone | | + + + | Preferred Language | Unknown | + + + | Marital Status | Single | + + + | Jain Affiliation | CAT | + + + | Race | White | + + + | Ethnic Group | Not or | + + + Author + + + | Author | [facility] | + + + | Organization | [facility] | + + + | Address | Unknown | + + + | Phone | Unavailable | + + + Support + + +---------+ + | Name | Relationship | Address | Phone | + + +---------+ + | Douglas Springer | ECON | Unknown | | + + +---------+ + Care Team Providers + +------+ + | Care Director Of Hotel Operations Name | Role | Phone | + [...] Description | +--------+---------+ + + + | 07/07/ | Surgery | [address]N INTRA [address] | Rosalind Wu, | Four gland | | 2017 | | [address] | MD [address] | exploration; | | | | [address] | [facility] [address] | specimen x 5 to | | | | Ambulatory Surgery | [place], [place] | pathology | | | | Admitting Desk | [address] | | | | | Located on the 4th | [phone] | | | | | floor, Room [facility] | | | | | | [place], [place] | | | | | | [address] | | | +--------+---------+ + + + [...] left ear Hx of myocardial infarction 12/2014: ID (myocardial infarction) Comment: X 2 Migraine Procedures [...] your incision. Call: and page ENT resident commission agent livestock if you have any of the following: [...] your local ED and/or contact us at [phone] Follow Up Appointments: Please call and arrange an appointment. Come back to see Dr. Rosalind Wu MD in 2 week s. Prior to her appointment, please have your labs drawn prior to your appointment date at [facility] next week in the morning. Please [...] and Neck Surgery Mail Code PV01 [address] [place] [address] Pager [phone] Consult/Night/Weekend Pager: [phone] I personally interviewed the patient, duplicated the [...] | | | | | | | ([facility]) | | | | | | + [...] 2 capsules by | | 0 | // | | | oral capsule,delayed | mouth once daily. | | | 17 | | | release(DR/EC) | | | | | | + + + +---------+ + + documented as of this encounter Progress Notes Rosalind Wu MD - 07/07/2017 2:36 PM PSTOPnote dictated Job # [id number] signed by Rosalind Wu MD at 07/07/2017 [...] ear Heart attack Hx of myocardial infarction ID (myocardial infarction) 12/2014 X 2 Migraine Pneumonia [...] [Fluoxetine Hcl] Unknown serotonin syndrome?? Reclast [Zoledronic Nsrl-Oivcifvj-Oncxy] Nausea and Vomiting Tramadol Lip Swelling SOCIAL [...] of Service: 07/07/2017 Attending Surgeon:Rosalind Wu MD Hospice Music Therapy(s):MD Ricco Romero PA-C Preoperative Diagnosis: Primary hyperparathyroidism. [...] awakened from anesthesia, extubated, sent to the [facility] in satisfactory condition. Complications: None. Estimated Blood Loss: Approximately 20 mL. I was physically present for the entire procedure. Rosalind Wu MD MLS/MODL /[id number] signed by Rosalind Wu MD at 07/08/2017 8:32 AM PSTdocumented in this encounter Miscellaneous Notes Handoff - Kesha Jackman RN - 07/08/2017 10:37 AM PSTNursing Handoff Patient Daily Goal: talk to family (07/08/17 0448) [facility] IP NURSE HANDOFF: [facility] hospital course events: S/P 4 Gland exploration, removal of L schilling perior parathyroid gland Hx: Anxiety, GERD, ID 2015, PONV, migraine SAFETY Patient/Family Target: Joselyn [...] where applicable (will be the exception ). andcarol - Pawan Flores RN - 07/08/2017 3:18 AM PSTNursing Handoff Patient Daily Goal: talk to family (07/07/17 2242) [facility] IP NURSE HANDOFF: [facility] hospital course events: Procedure: 07/07/17 - Left superior parat hyroidectomy, 4 samples for pathology PMHx: Hypothyroidism, GERD, Hearing loss in left ear, ID x 2, Migraine, Pneumonia, Asthma SAFETY Patient/Family [...] discharge: Meeting all d/c goals this AM lissa - Sa luis Conde RN - 07/07/2017 7:34 PM PSTNursing Handoff Patient Daily Goal: Pain management, Eat, Walk, Rest (07/07/17 8101) [facility] IP NURSE HANDOFF: [facility] hospital course events: Procedure: 07/07/17 - Left superior parat hyroidectomy, 4 samples for pathology PMHx: Hypothyroidism, GERD, Hearing loss in left ear, ID x 2, Migraine, Pneumonia, Asthma SAFETY Patient/Family [...] the AM - Above documented in this enc nter Plan of Treatment Not on filedocumented [...] | | POC | | PST | ([facility]) | results section. | + +--------+ + [...] | + + + + + | [facility] | [address] [facility] | [place] [address] | | | SERVICES, CORE | [address] | | | + + + + + OPERATION RECORD (07/08/2017 8:32 AM PST) + + | Procedure Note | + + | Rosalind Wu MD - 07/07/2017 2:56 PM PST Date of Service: 07/07/2017 | | Attending Surgeon:Rosalind Wu MD Hospice Music Therapy(s):Ruth Dickinson MD | | Ricco Salmeron PA-C Preoperative [...] | | 07/07/2017 14:35:38DT: 07/07/2017 14:56:06Job #: [id number] | |MLS/MODL | | | | | | /[id number] | + + PTH, SERUM (07/08/2017 4:56 [...] [facility] | [address] | [place] [address] | | | SERVICES, JOVANNI | [address] | | | + [...] | + + + + + | [facility] | [address] | [place] [address] | | | SERVICES, CORE | [address] | | | + [...] | | | LABORATORY | | | [facility] | | | SERVICES, | | | [...] | Adult glucose reference range change effective 7-17. GFR is | [facility] | | estimated [...] | + + + + + | [facility] | [address] | [place] [address] | | | SERVICES, CORE | [address] | | | + + + + + CAPILLARY BLOOD GLUCOSE (NO CHG), POC (07/07/2017 2:33 PM PST) + +---------+ + + + | Component | Value | Ref Range | Performed | Pathologist | | | | | At | Signature | + +---------+ + + + | BLOOD | 138 (H) | 70 - 99 mg/dL | [facility] - | | | GLUCOSE, | [...] + + + + + | [facility] | [address] | [place], [place] | | | JENNIFER MCKENNA OF [facility] | [address] | [address] | | | TESTS | | | [...] + + + | Test performed by: [facility] | [facility] | | [facility] [address] | REFERENCE LAB | | [address] | | + + + + + [...] + + + | Test performed by: [facility] | [facility] | | [facility] [address] [place], [place] | REFERENCE LAB | | [address] | | + + + + + + + + | Performing | Address | City/State/Zipcode | Phone Number | | Organization | | | | + + + + + | [facility] REFERENCE LAB | | | | + + + + + | [facility] REFERENCE LAB | see below | [...] + | [facility] | [address] | [place] [address] | | | SERVICES, CORE | [address] [...] | | | LABORATORY | | | [place] | | | SERVICES, | | | [...] Education Program. Estimated GFR Interpretive Information: | [facility] | | <60 mL/min/1.73 sq m Chronic [...] | + + + + + | [facility] | [address] | [place] [address] | | | SERVICES, CORE | [address] [...] performed by: | REFERENCE LAB | | [facility] | | | [address] | | | [place], [place] [address] | | + + + + + [...] Nasreen, | | | | | | M.D.,Ph.D./Pathologist | | | | | | and [...] Analy | | | | | | Lei M.Xin./Pathology | | | | | | Resident [...] medical | | | | | | record#[id number]. | | | | | | A: [...] | | | | | | E1. (KEVIN) My | | | | | | [...] [place] | | | | | | DanyHematopathologistDaalex | | | | | | e [...] | + + + + + | [facility] | [address] | [place] [address] | | | PATHOLOGY | [address] | | | + + + + + documented in this encounter Visit Diagnoses + + | Diagnosis | + + | Hyperparathyroidism (HCC) Hyperparathyroidism, unspecified | + + documented in this [...] +---+---+ | | | +---+---+ + +-------+ +-------+---+ + | bupivacaine-EPINEPHrine | Given | 07/07/20 | 10 mL | | Surgical | | (MARCAINE-EPINEPHRINE) 0.25 | | 17 1:57 | | | Site | | %-1:200,000 injection | | PM PST | | | | | INTRAPROCEDURE PRN, Starting Tue | | | | | | | 07/07/17 at 1150, Until Tue | | | | | | | 07/07/17 at 1413 | | | | | | + +-------+ +-------+---+ + +-------+ +-------+---+ + | Given | 07/07/20 | 10 mL | | Surgical | | | 17 11:50 | | | Site | | | AM PST | | | | +-------+ +-------+---+ + + +---+ | | | + +---+ [...] | | | | | dose on e 07/07/17 at 1745, | | | | | [...] | | | | at 0900, Until e 07/07/17 at | iology | | | [...] Post | | transdermal, ONCE, 1 dose, Thu | | AM PST | | | [...]
--- OUTSIDE RECORDS SUMMARY | ~2020-05-21 | XMS | Encounter Summary ---
Demographics + + + | Address | [address] | | | [place] [address] | + + + | Home Phone | | + + + | Preferred Language | Unknown | + + + | Marital Status | Single | + + + | Lutheran Affiliation | CAT | + + + [...] Team Providers + +------+ + | Care Official Court Reporter Name | Role | Phone | + +------+ + | Juan Dong MD | PCP | | + +------+ + Reason for Visit + +--------+ + | Reason | Onset | Comments | | | Date | | + +--------+ + | Telephone follow-up | 07/13/ | | | | 2016 | | + +--------+ + Encounter Details +--------+ + + + + | Date | Type | Department | Care Team | Description | +--------+ + + + + | 07/13/ | Telephone | [address] | Rosalind Wu, | Telephone follow-up | | 2017 | IP | [address] | MD [address] [facility] | | | | | [facility] | [address] | | | | | [place], [place] | [place], [place] | | | | | [address] | [address] | | | | | [phone] | [phone] | | | | | | | [...] this encounter Miscellaneous Notes Telephone Encounter - Davy Hu RN - 07/13/2017 8:56 AM [facility] DayStay Follow-Up Call Patient: Joselyn Leung "This is Davy Hu RN. I am a nurse at [facility] on the 5B Day Stay unit where y ou recently stayed the night after surgery. I am calling to check-in on your post-op recover y and to see how your stay was on 5B. May I take 5-10 minutes of your time to ask you some r elated questions?" Patient: yes RN: "How have you been feeling since returning home after surgery?" Patient: not feeling good, I have been having RN: "Were you given education about wound ca re and infection prevention?" Patient: yes RN: "Did your nurses educate you about transitioning off of pain medication?" Patient: n/a RN: "How was the whiteboard helpful to you as a communication tool during your stay?" Patient: yes RN: "Is there anything we could have done to have improved your stay?" Patient: no RN: "Would you like to recognize anyone who provided exceptional service?" Patient: over all it was a very good experience "Thank you for taking the time to speak with me about how you are doing. Pierrebye." RN Notes: attempted to transfer phone call to ENT clinic but was unable. RN called ENT cli zaheer and requested that they call Joselyn about her muscle cramps and tingling in her L hand. She stated she would call Joselyn back on her home phone. documented in this encounter Plan of Treatment Not on filedocumented as of this encounter Visit Diagnoses Not on filedocumented in this encounter
--- OUTSIDE RECORDS SUMMARY | ~2020-05-21 | XMS | Encounter Summary ---
Demographics + + + | Address | [address] | | | [place] [address] | + + + | Home Phone | | + + + | Preferred Language | Unknown | + + + | Marital Status | Single | + + + | Jewish Affiliation | CAT | + + + | Race | White | + + + | Ethnic Group | Not or | + + + Author + + + | Author | [facility] | + + + | Organization | [facility] | + + + | Address | Unknown | + + + | Phone | Unavailable | + + + Support + + +---------+ + | Name | Relationship | Address | Phone | + + +---------+ + | Douglas Springer | ECON | Unknown | | + + +---------+ + Care Team Providers + +------+ + | Care Turn Down Worker Name | Role | Phone | + +------+ + | Juan Dong MD | PCP | | + +------+ + Reason for Visit + +--------+ + | Reason | Onset | Comments | | | Date | | + +--------+ + | Outside Records | 03/20/ | EKG | | Received | 2016 | | + +--------+ + | Pre-surgery | 03/20/ | | | evaluation | 2017 | | + +--------+ + Encounter Details +--------+ + + + + | Date | Type | Department | Care Team | Description | +--------+ + + + + | 03/20/ | Telephone | Otolaryngology | Ricco Salmeron, | Outside Records | | 2017 | | Thyroid Services at | PA-C | Received (EKG); | | | | [facility] [address] | | Pre-surgery | | | | [address] | | evaluation | | | | Physician's | | | | | | Pavilion, 2nd floor | | | | | | [place], [place] | | | | | | [address] | | | | | | [phone] | | | +--------+ + + + [...] this encounter Miscellaneous Notes Telephone Encounter - Sherri Goyal - 04/17/2017 11:59 AM PDTPlease review chart note loaded to media tab. TTelephone Encounter - Sherri Goyal - 04/09/2017 9:05 AM Laurie Wu - Please se e care everywhere for ECHO results 03/31/17. I faxed note to PCP to see if she has been cleared, if additional testing is needed and/or any recommendations. Horacio Munoz elephon e Encounter - Sherri Goyal - 03/25/2017 9:02 AM PDTSpoke to Joselyn and read note maddy w per Dr Wu. Patient will reach out to PCP office to schedule Echo. Once complete and cl eared we can complete scheduling preop, CT, surgery ect.for mid-May Spoke to Mindy at pcp Dr Dong's office. She will schedule patient for Echo. Tracing is bad. Cannot read anything. Report says old infarct. Should have PCP order an echo to be 100% sure so she does not get cancelled last minute d ay of surgery elephon e Encounter - Sherri Goyal - 03/24/2017 1:16 PM PDTHi Ricco - We received past EKGs and loaded to media tab. Please review and let me know if additional cardio clearance is nee ded. Patient interested in scheduling mid-may. Thank you documented in this encounter Plan of Treatment Not on filedocumented as of this encounter Visit Diagnoses Not on filedocumented in this encounter"
--- OUTSIDE RECORDS SUMMARY | ~2020-05-21 | XMS | Encounter Summary ---
Demographics + + + | Address | [address] | | | [place] [address] | + + + | Home Phone | | + + + | Preferred Language | Unknown | + + + | Marital Status | Single | + + + | Hoahaoism Affiliation | 1041 | + + + | Race | White | + + + | Ethnic Group | Not or | + + + Author + + + | Author | [facility] | | | and [place] | + + + | Organization | [facility] | | | and [place] | + + + | Address | Unknown | + + + | Phone | Unavailable | + + + Support + + +---------+ + | Name | Relationship | Address | Phone | + + +---------+ + | Dougals Springer | ECON | Unknown | | + + +---------+ + | Isabel Bell | ECON | Unknown | | + + +---------+ + | Facundo Springer | ECON | Unknown | | + + +---------+ + Care Team Providers + +------+ + | Care Furnace Filler Name | Role | Phone | + +------+ + PCP | Unavailable | + +------+ + Encounter Details +--------+ + + + + | Date | Type | Department | Care Team | Description | +--------+ + + + + | 09/22/ | Hospital | [facility] | | | | 2011 | Encounter | MED CTR XRAY [address] | | | | | | [address] [place] | | | | | | [place] [address] | | | | | | [phone] | | | +--------+ + + + [...] + + + | MRI LUMBAR SPINE WO | | 09/22/2011 | | Results for this | | CONTRAST | | 12:28 PM | | procedure are in the | | | | PST | | results section. | + +--------+ + + + documented in this encounter Results MRI Lumbar Spine wo Contrast (09/22/2011 12:28 PM PST) + + | Specimen | + + | | + + + + + | Narrative | Performed At | + + + | [facility] Diagnostic Imaging Department | [facility] | | [address], [facility] | [facility] | | LUMBAR SPINE MR WITHOUT CONTRAST | DIAG IMG | | 09/22/2011 CLINICAL HISTORY: BACK PAIN. COMPARISON: December | | | 2010. TECHNIQUE: Sagittal and transaxial T1, sagittal and | | | transaxial fast spin echo PD/T2. FINDINGS: There is interval | | | subtotal resolution of the posterior paraspinous muscle edema seen on | | | th e prior study. There is a minimal amount of residual muscle | | | edema centered at about the L3 level pre dominantly on the left. | | | There is no evidence of intraspinal infection. Lumbar body heights | | | and florentin ow signal are normal. Cortical signal is normal. The | | | intervertebral discs demonstrate multilevel di sc desiccation with | | | loss of disc height particularly at the 5-1 level. Canal diameter is | | | widely paten t. The conus terminates normally at about the | | | thoracolumbar junction. Coronal acquisition redemonstr ates | | | levoscoliosis with the apex at about the L2 level. L2-3: | | | Stable mild disc bulge without stenosis. L3-4: Stable broad | | | based degenerative disc bulge without stenosis. L4-5: Broad | | | based disc bulge minimally flattening the ventral thecal sac. This | | | does not produce sig nificant canal stenosis. There is stable | | | moderately advanced facet arthropathy with interval resoluti on of a | | | previously noted facet synovitis. There is no significant central or | | | lateral stenosis. L5-S1: Stable broad based degenerative | | | disc bulge without stenosis. IMPRESSION: 1. SUBTOTAL | | | RESOLUTION OF PARASPINOUS MUSCLE HIGH SIGNAL SEEN ON THE PREVIOUS | | | STUDY. 2. SCOLIOSIS WITH SPONDYLOSIS. 3. BROAD BASED | | | DISC BULGE AT THE 4-5 LEVEL WITH ASSOCIATED MILD ANTEROLISTHESIS OF 4 | | | OVER 5, AND RES IDUAL DEGENERATIVE FACET ARTHROPATHY WITH RESOLUTION | | | OF FACET JOINT FLUID SINCE THE PREVIOUS STUDY. Dictated | | | Date/Time: 09/22/2011 14:25 Transcribed Date/Time: 09/22/2011 | | | 14:40 Real Estate Executive Assistant: <Electronically Signed by Morgan Aguilar | | | MD Kartik> 09/23/11 0811 | | + + + + + | Procedure Note | + + | Bertrand Muniz - 10/07/2013 4:36 PM [facility] | | Diagnostic Imaging Department [address] [facility], [place] | | LUMBAR SPINE MR WITHOUT CONTRAST 09/22/2011 CLINICAL | | HISTORY: BACK PAIN. COMPARISON: December 2010. TECHNIQUE: Sagittal and transaxial T1, | | sagittal and transaxial fast spin echo PD/T2. FINDINGS: There is interval subtotal | | resolution of the posterior paraspinous muscle edema seen on the prior study. There is | | a minimal amount of residual muscle edema centered at about the L3 level predominantly | | on the left. There is no evidence of intraspinal infection. Lumbar body heights and | | marrow signal are normal. Cortical signal is normal. The intervertebral discs | | demonstrate multilevel disc desiccation with loss of disc height particularly at the 5-1 | | level. Canal diameter is widely patent. The conus terminates normally at about the | | thoracolumbar junction. Coronal acquisition redemonstrates levoscoliosis with the apex | | at about the L2 level. L2-3: Stable mild disc bulge without stenosis. L3-4: Stable | | broad based degenerative disc bulge without stenosis. L4-5: Broad based disc bulge | | minimally flattening the ventral thecal sac. This does not produce significant canal | | stenosis. There is stable moderately advanced facet arthropathy with interval resolution | | of a previously noted facet synovitis. There is no significant central or lateral | | stenosis. L5-S1: Stable broad based degenerative disc bulge without stenosis. | | IMPRESSION: 1. SUBTOTAL RESOLUTION OF PARASPINOUS MUSCLE HIGH SIGNAL SEEN ON THE | | PREVIOUS STUDY. 2. SCOLIOSIS WITH SPONDYLOSIS. 3. BROAD BASED DISC BULGE AT THE | | 4-5 LEVEL WITH ASSOCIATED MILD ANTEROLISTHESIS OF 4 OVER 5, AND RESIDUAL DEGENERATIVE | | FACET ARTHROPATHY WITH RESOLUTION OF FACET JOINT FLUID SINCE THE PREVIOUS STUDY. | | Dictated Date/Time: 09/22/2011 14:25Transcribed Date/Time: 09/22/2011 | | 14:40Transcriptionist: <Electronically Signed by Morgan Verdugo MD> 09/23/11 | | 0811 | | | |L4-5: Broad based disc bulge minimally flattening the ventral thecal sac. This does not p roduce sig | |nificant canal stenosis. There is stable moderately advanced facet arthropathy with interva l resoluti | |on of a previously noted facet synovitis. There is no significant central or lateral steno sis. | | | |L5-S1: Stable broad based degenerative disc bulge without stenosis. | | | |IMPRESSION: | |1. SUBTOTAL RESOLUTION OF PARASPINOUS MUSCLE HIGH SIGNAL SEEN ON THE PREVIOUS STUDY. | | | |2. SCOLIOSIS WITH SPONDYLOSIS. | | | |3. BROAD BASED DISC BULGE AT THE 4-5 LEVEL WITH ASSOCIATED MILD ANTEROLISTHESIS OF 4 OVER 5, AND RES | |IDUAL DEGENERATIVE FACET ARTHROPATHY WITH RESOLUTION OF FACET JOINT FLUID SINCE THE PREVIO US STUDY. | | | | | |Dictated Date/Time: 09/22/2011 14:25 | |Transcribed Date/Time: 09/22/2011 14:40 | |Real Estate Executive Assistant: | |<Electronically Signed by Morgan Verdugo MD> 09/23/11 0811 | + + + +---------+ + + | Performing | Address | City/State/Zipcode | Phone Number | | Organization | | | | + +---------+ + + | [facility] | | | | | [facility] | | | | + +---------+ + + documented in this encounter Visit Diagnoses Not on filedocumented in this encounter"
--- OUTSIDE RECORDS SUMMARY | ~2020-05-21 | XMS | Encounter Summary ---
Demographics + + + | Address | [address] | | | [place] [address] | + + + | Home Phone | | + + + | Preferred Language | Unknown | + + + | Marital Status | Single | + + + | Uatsdin Affiliation | 1041 | + + + [...] Providers + +------+ + | Care Manager Critical Care Unit Name | Role | Phone | + +------+ + | Mick Malik MD | PCP | | + +------+ + Encounter Details +--------+ + + + + | Date | Type | Department | Care Team | Description | +--------+ + + + + | 07/13/ | Hospital | [facility] | Argelia Camara, | Osteoporosis, | | 2018 | Encounter | MED CTR MAMMOGRAPHY | MD [address] | post-menopausal | | | | [address] | [address] [place], | | | | | [place] | [place] [address] | | | | | [address] | [phone] | | | | | [phone] | | | +--------+ + + + [...] 2,000 Units by | | 0 | 09/15/20 | | | (VITAMIN D3) 2000 | [...] + + + +---------+ + + | acyclovir | Take 400 mg by | | 0 | 06/14/20 | | | (ZOVIRAX) 400 MG | mouth. | | | 18 | 9 | [...] +---------+ + + | omeprazole | Take 2 capsules by | | 0 | 05/15/20 | | | (PRILOSEC) 10 mg | mouth once daily. | | | 17 | 9 | | capsule | | [...] | DEXA BONE DENSITY | Routin | 07/13/2018 | Osteoporosis, | Results for this | | STUDY WO VERT FX | e | 12:40 PM | post-menopausal | procedure are in the | | ASSESSMENT | | PST | | results section. | + +--------+ + + + documented in this encounter Results DEXA Bone Density wo Vinay Matta (07/13/2018 12:40 PM PST) + + | Specimen | + + | | + + + + + | Narrative | Performed At | + + + | DEXA SCAN OF THE AXIAL SKELETON 07/13/2018 12:40 PM CLINICAL | [facility] | | HISTORY: OSTEOPOROSIS, FDA APPOVED OSTEOPOROSIS DRUG THERAPY | | | COMPARISON: None available from this institution FINDINGS: Images | | | are acquired at the level of the left femoral neck, left forearm and | | | L1-L4 levels of the lumbar spine. Review of the accounts payable technician images and | | | data sheets demonstrates satisfactory technical quality. Total | | | bone mineral density in the lumbar spine is 0.761 g/sq cm which is 2.6 | | | standard deviations below the young adult mean (T score -2.6) and | | | 0.4 standard deviation below the mean for age-matched controls (Z | | | score -0.4). Lumbar curvature is visible on the limited accounts payable technician image | | | provided. Bone mineral density at the level of the left femoral | | | neck measures 0.452 g/sq cm which is 3.6 standard deviations below | | | the young adult mean (T score -3.6) and 1.7 standard deviation below | | | the mean for age-matched controls (Z score -1.7). Bone mineral | | | density at the level of the left forearm is 3.27 g/sq cm which is | | | 4.6 standard deviations below the young adult mean (T score -4.6) and | | | 2.4 standard deviations below the mean for age-matched controls (Z | | | score -2.4). IMPRESSION - 1. OSTEOPOROSIS OF THE LUMBAR SPINE, | | | LEFT FEMORAL NECK AND LEFT FOREARM PER WHO CRITERIA. Dictated | | | and Signed by: Milton Alford MD Electronically signed: 07/13/2018 | | | 1:34 PM | | + + + + + | Procedure Note | + + | Bertrand Muniz Results In - 07/13/2018 1:38 PM PST DEXA SCAN OF THE AXIAL SKELETON | | 07/13/2018 12:40 PMCLINICAL HISTORY: OSTEOPOROSIS, FDA APPOVED OSTEOPOROSIS DRUG | | THERAPYCOMPARISON: None available from this institutionFINDINGS: Images are acquired at | | the level of the left femoral neck, leftforearm and L1-L4 levels of the lumbar spine. | | Review of the accounts payable technician images anddata sheets demonstrates satisfactory technical | | quality.Total bone mineral density in the lumbar spine is 0.761 g/sq cm which is | | 2.6standard deviations below the young adult mean (T score -2.6) and 0.4 | | standarddeviation below the mean for age-matched controls (Z score -0.4). | | Lumbarcurvature is visible on the limited accounts payable technician image provided.Bone mineral density at | | the level of the left femoral neck measures 0.452 g/sqcm which is 3.6 standard | | deviations below the young adult mean (T score -3.6)and 1.7 standard deviation below the | | mean for age-matched controls (Z score-1.7). Bone mineral density at the level of the | | left forearm is 3.27 g/sq cm which is4.6 standard deviations below the young adult mean | | (T score -4.6) and 2.4standard deviations below the mean for age-matched controls (Z | | score -2.4).IMPRESSION -1. OSTEOPOROSIS OF THE LUMBAR SPINE, LEFT FEMORAL NECK AND | | LEFT FOREARM PERWHO CRITERIA.Dictated and Signed by: Milton Alford MD Electronically | | signed: 07/13/2018 1:34 PM | |and 1.7 standard deviation below the mean for age-matched controls (Z score | |-1.7). | | | |Bone mineral density at the level of the left forearm is 3.27 g/sq cm which is | |4.6 standard deviations below the young adult mean (T score -4.6) and 2.4 | |standard deviations below the mean for age-matched controls (Z score -2.4). | | | |IMPRESSION - | |1. OSTEOPOROSIS OF THE LUMBAR SPINE, LEFT FEMORAL NECK AND LEFT FOREARM PER | |WHO CRITERIA. | | | |Dictated and Signed by: Milton Alford MD | | Electronically signed: 07/13/2018 1:34 PM | + + + +---------+ + + | Performing | Address | City/State/Zipcode | Phone Number | | Organization | | | | + +---------+ + + | [facility] | | | | + +---------+ + + documented in this encounter Visit Diagnoses + + | Diagnosis | + + | Osteoporosis, post-menopausal Senile osteoporosis | + + documented in this encounter"
--- OUTSIDE RECORDS SUMMARY | ~2020-05-21 | XMS | Encounter Summary ---
Demographics + + + | Address | [address] | | | [place] [address] | + + + | Home Phone | | + + + | Preferred Language | Unknown | + + + | Marital Status | Single | + + + | Latter Day Affiliation | 1041 | + + + | Race | White | + + + | Ethnic Group | Not or | + + + Author + + + | Author | [facility] | | | and [place] | + + + | Organization | [facility] | | | and [...] Team Providers + +------+ + | Care Assistant Grocery Store Manager Name | Role | Phone | + +------+ + PCP | Unavailable | + +------+ + Encounter Details +--------+ + + + + | Date | Type | Department | Care Team | Description | +--------+ + + + + | 10/02/ | Hospital | [facility] | | | | 2011 | Encounter | MED CTR XRAY [address] | | | | | | [place] | | | | | | [place] [address] | | | | | | [phone] | | | +--------+ + + + [...] + +--------+ + + + | MRI THORACIC SPINE | | 10/02/2011 | | Results for this | | WO CONTRAST | | 11:57 AM | | procedure are in the | | | | PST | | results section. | + +--------+ + + + documented in this encounter Results MRI Thoracic Spine wo Contrast (10/02/2011 11:57 AM PST) + + | Specimen | + + | | + + + + + | Narrative | Performed At | + + + | [facility] Diagnostic Imaging Department | [facility] | | [address] [facility] | [facility] | | MRI THORACIC SPINE CLINICAL | DIAG IMG | | HISTORY: BACK PAIN. NO HISTORY OF TRAUMA. PRIOR LUMBAR SURGERY IN | | | 1986. TECHNIQUE: Multiplanar, multisequence imaging of the | | | thoracic spine was performed. FINDINGS: There is a very mild | | | dextroscoliosis present, compensatory to the patient's known lumbar l | | | evoscoliosis. In the sagittal plane alignment is normal. There are no | | | areas of abnormal marrow signal to indicate fracture or destructive | | | process. The thoracic cord shows a normal signal and appearance | | | throughout. No adjacent soft tissue abnormalities are seen. Review | | | of the axial images shows no areas of focal disc protrusion or bulge. | | | There are no areas of ce ntral canal or foraminal stenosis. Mild | | | facet degenerative changes are present in the lowest portions of the | | | thoracic spine. IMPRESSION: 1. NORMAL MRI THORACIC SPINE FOR | | | AGE. Dictated Date/Time: 10/02/2011 18:00 Transcribed | | | Date/Time: 10/02/2011 18:21 Failure Analysis Engineer: | | | <Electronically Signed by Gasper Flores MD> 10/02/11 2075 | | + + + + + | Procedure Note | + + | Flavio, Rad Conversion - 10/07/2013 4:40 PM [facility] | | Diagnostic Imaging Department [address] [place] [address] | | MRI THORACIC SPINE CLINICAL HISTORY: BACK PAIN. NO | | HISTORY OF TRAUMA. PRIOR LUMBAR SURGERY IN 1986. TECHNIQUE: Multiplanar, multisequence | | imaging of the thoracic spine was performed. FINDINGS: There is a very mild | | dextroscoliosis present, compensatory to the patient's known lumbar levoscoliosis. In | | the sagittal plane alignment is normal. There are no areas of abnormal marrow signal to | | indicate fracture or destructive process. The thoracic cord shows a normal signal and | | appearance throughout. No adjacent soft tissue abnormalities are seen. Review of the | | axial images shows no areas of focal disc protrusion or bulge. There are no areas of | | central canal or foraminal stenosis. Mild facet degenerative changes are present in the | | lowest portions of the thoracic spine. IMPRESSION: 1. NORMAL MRI THORACIC SPINE FOR | | AGE. Dictated Date/Time: 10/02/2011 18:00Transcribed Date/Time: 10/02/2011 | | 18:21Transcriptionist: <Electronically Signed by Gasper Flores MD> 10/02/11 | | 2115 | |throughout. No adjacent soft tissue abnormalities are seen. | | | |Review of the axial images shows no areas of focal disc protrusion or bulge. There are no a reas of ce | |ntral canal or foraminal stenosis. Mild facet degenerative changes are present in the lowes t portions | | of the thoracic spine. | | | |IMPRESSION: | |1. NORMAL MRI THORACIC SPINE FOR AGE. | | | |Dictated Date/Time: 10/02/2011 18:00 | |Transcribed Date/Time: 10/02/2011 18:21 | |Failure Analysis Engineer: | |<Electronically Signed by Gasper Flores MD> 10/02/11 2115 | + + + +---------+ + + | Performing | Address | City/State/Zipcode | Phone Number | | Organization | | | | + +---------+ + + | [facility] | | | | | [facility] | | | | + +---------+ + + documented in this encounter Visit Diagnoses Not on filedocumented in this encounter"
--- OUTSIDE RECORDS SUMMARY | ~2020-05-21 | XMS | Encounter Summary ---
Demographics + + + | Address | [address] | | | [place] [address] | + + + | Home Phone | | + + + | Preferred Language | Unknown | + + + | Marital Status | Single | + + + | Baptism Affiliation | [id number] | + + + | Race | White | + + + | Ethnic Group | Not or | + + + Author + + + | Author | [facility] | | | and [place] | + + + | Organization | [facility] | | | [...] Team Providers + +------+ + | Care Rabble Furnace Tender Name | Role | Phone | + +------+ + | Mick Malik MD | PCP | | + +------+ + Reason for Visit + + + | Reason | Comments | + + + | Follow-up | 3 month / ECHO | + + + Encounter Details +--------+---------+ + + + | Date | Type | Department | Care Team | Description | +--------+---------+ + + + | 06/29/ | Office | [facility] | Maria Isabel Junior DO | ST elevation | | 2019 | Visit | [facility]IOLOG[place] | [address] | myocardial | | | | [address] | [address] [place], [place] | infarction (STEMI), | | | | [place], [place] | [address] | unspecified artery | | | | [address] | | (HCC) (Primary Dx) | | | | [phone] | | | +--------+---------+ + + + [...] + documented in this encounter Progress Notes Maria Isabel Junior, - 06/29/2019 11:40 AM PDT [facility] Cardiology Follow Up Note Reason for Consultation: history STEMI Requesting Physician: Juan Dong History Obtained From: patient HISTORY OF PRESENT ILLNESS: Cardiac problem list History of inferior lateral STEMI Noncardiac problem list GERD Hyperparathyroidism Asthma The patient is a 73-year-old female who presents to the Cardiology Office for initial consu ltation regarding a history of STEMI. She was previously followed by Dr. Javier. In 2014, angely majano had a hospitalization during which she presented with severe sepsis and septic shock. She was given volume resuscitation, which tipped her into congestive heart failure. During [facility] admission, EKG was notable for an inferolateral ST-segment elevation [place]. Given the acuity of her illness, it was decided to treat her medically. Echocardiogram during that admissio n demonstrated and ejection fraction of 50-55 percent, regional wall motion was not commente d on. It was noted to be a technically difficult study. Her troponin from that admission p eaked at 49. She eventually recovered, was able to be discharged. She followed up with Dr. Javier, who performed nuclear stress test. The nuclear stress test was done on 03/26/2015, w [facility] was negative for any perfusion abnormalities. Her EF had normalized by that time. Her most recent echocardiogram was in 03/2017, which demonstrated an ejection fraction of 60-65 percent with normal right ventricular function. She reports that she had a hospitalization about 1 month ago during which she was very sick with diarrhea and nausea. She passed out whenever she got up to go to the bathroom while she was ill. She went to the emergency depa rtment and was diagnosed with a viral gastroenteritis as well as a UTI. She recovered and w as discharged. She was noted to have lost a significant amount of weight after this. Recen tly, she has been trying to take it easy. She denies any chest pains or shortness of breath lately. She denies any lower extremity swelling, orthopnea, PND. Interim History I last saw the patient 3 months ago, at that time, we ordered a complete echocardiogram. E chocardiogram was done on 04/12/2019, which demonstrated normal left ventricular function wi th an ejection fraction of 60-65 percent, no regional wall motion abnormalities, normal righ t ventricular size and systolic function. She had mild to moderate mitral regurgitation on that study. Since we last saw each other, she has been feeling better. Her appetite is im proved and she has gained a little bit of weight. She intends on starting some Abe Chi in or July. She also plans on increasing her aerobic activity. She denies any epi sodes of palpitations. She denies any episodes of syncope or presyncope. She denies any ch est pains or shortness of breath. She has been feeling otherwise well from a cardiac perspe ctive. Review of Systems Constitutional: Negative for fatigue. HENT: Negative for nosebleeds. Eyes: Negative for visual disturbance. Respiratory: Negative for cough and shortness of breath. Cardiovascular: see HPI Gastrointestinal: Negative for nausea, vomiting, abdominal pain and blood in stool. Genitourinary: Negative for hematuria or dysuria. Musculoskeletal: Negative for myalgias, back pain and arthralgias. Skin: Negative for color change. Neurological: Negative for dizziness and numbness. Hematological: Does not bruise/bleed easily. Psychiatric/Behavioral: The patient is not nervous/anxious. PAST MEDICAL & SURGICAL HISTORY Past Medical History Diagnosis Date Asthma GERD (gastroesophageal reflux disease) Old myocardial infarction Syncope and collapse Past Surgical History Procedure Laterality Date CARPAL TUNNEL RELEASE Bilateral CATARACT EXTRACTION SECTION CHOLECYSTECTOMY LAMINECTOMY PARATHYROIDECTOMY 07/07/2017 TONSILLECTOMY MEDICATIONS Home Medications Outpatient Encounter Prescriptions as of 03/24/2019 Medication Sig Dispense Refill Cholecalciferol (VITAMIN D-3 PO) Take 2,000 Units by mouth daily. Coenzyme Q10 (COQ10) 100 MG CAPS Take by mouth daily. Multiple Vitamins-Minerals (MULTIVITAMIN WITH MINERALS) tablet Take 1 tablet by mouth d aily with breakfast. 30 tablet 0 pantoprazole (PROTONIX) 40 MG tablet Take 40 mg by mouth every morning before breakfast . ascorbic acid (VITAMIN C) 250 MG tablet Take 250 mg by mouth daily. aspirin 81 MG EC tablet Take 81 mg by mouth daily. clonazePAM (KLONOPIN) 0.5 MG tablet Take 0.25 mg by mouth daily. Indications: Take half tabe by mouth every day. cyanocobalamin (VITAMIN B-12) 500 MCG tablet Take 500 mcg by mouth daily. famotidine (PEPCID) 40 MG tablet Take 40 mg by mouth daily. ferrous sulfate, 65 FE, 324 (65 FE) MG EC tablet Take 65 mg of iron by mouth daily. loratadine (CLARITIN) 10 MG tablet Take 10 mg by mouth daily. omeprazole (PRILOSEC) 20 MG capsule Take 20 mg by mouth every morning before breakfast. No facility-administered encounter medications on file as of 03/24/2019. Allergies Allergies Allergen Reactions Codeine Rash Prednisone Red Man Syndrome Reclast [Zoledronic Acid] Nausea and Vomiting, Other (See Comments) and Muscle Pain Loss of muscle Serotonin Reuptake Inhibitors (Ssris) Anxiety and Rash Tramadol Other (See Comments) Blisters Prozac [Fluoxetine] Nausea and Vomiting FAMILY HISTORY Family History Problem Relation Age of Onset Hypertension Mother Diabetes type II Father SOCIAL HISTORY Social History Social History Marital status: Spouse name: N/A Number of children: N/A Years of education: N/A Occupational History Not on file. Social History Main Topics Smoking status: Former Smoker Smokeless tobacco: Never Used Comment: Cigars in college Alcohol use Yes Drug use: No Sexual activity: Not on file Other Topics Concern Not on file Social History Narrative No narrative on file PHYSICAL EXAM Vitals: 06/29/19 1149 BP: 96/58 Pulse: 84 SpO2: 96% Weight: 54 kg (119 lb) Height: 1.702 m (5' 7") GENERAL: Well developed, well nourished, in no distress. Appears approximately stated age . HEENT: Normocephalic, atraumatic. EYES: PERRL, sclerae anicteric, no xanthelsasmas MOUTH: Oral mucosae moist, dentition adequate, no lesions noted NECK: No JVD, lymphadenopathy, thyromegaly, bruits. Carotid pulses are 2+ bilaterally LUNGS: Clear bilaterally, with no rales, rhonchi or wheezing noted, respirations unlabored HEART: Nondisplaced PMI, regular rate and rhythm, S1, S2 normal. No murmurs, rubs or gall ops noted. ABDOMEN: Soft, nontender, no organomegaly, masses or bruits. Bowel sounds are normal in a ll 4 quadrants. EXTREMITIES: No edema. Radial pulses 2+ bilaterally. DP and PT pulses are 2+ bilaterally . SKIN: Warm and dry, capillary refill is normal, no lesions. NEUROLOGIC: Awake, alert and oriented x 3. No focal motor deficits. PSYCHIATRIC: Appropriate, affect appears normal Blood work from 05/07/2018 reviewed including white blood cell count 4.4, hemoglobin 11.9, he matocrit 36.1, platelets 246, cholesterol 159, triglycerides 147, HDL 61, LDL 69, sodium 134 , potassium 4.0, chloride 99, carbon dioxide 26, BUN 17, creatinine 0.94, AST 21, ALT 16, al kaline phosphatase 75, total bilirubin 1.4 EK01/21/19 sinus bradycardia 66BPM Last Echo: 04/12/19 CONCLUSIONS 1. Overall left ventricular systolic function is normal with, an EF between 60 - 65 %. 2. No regional wall motion abnormalities. 3. The right ventricle is normal in size and function. 4. Tqrf-ny-gaeltlji mitral regurgitation is present. 03/31/17 Impression 1. Overall left ventricular systolic function is normal with, an EF between 60 - 65 %. 2. The right ventricle is normal in size and function. 3. No significant valvular abnormali ty. 4. There are no significant changes noted in comparison to the previous echocardiographi c study, done 01/01/15. Last stress test: 03/26/15 IMPRESSIONS: Average exercise time No exercise-induced arrhythmias, ischemia, or symptoms No significant rest or stress perfusion abnormality Normal LV systolic function No comparison studies available. Last cath: Carotid US: AAA screening: Lower extremity US: OTHERS: ASSESSMENT & PLAN 1. History of inferior lateral STEMI 2. GERD 3. Hyperparathyroidism 4. Asthma - The patient is a 73yo female with the above past medical histories who presents to the mo rdiology office to follow up. In 2014, she was critically ill with septic shock. During that hospitalization she had an inferior lateral STEMI which was treated medically due to the se verity of her illness. After she was discharged, she underwent a nuclear stress test which d emonstrated no perfusion abnormalities and an echocardiogram that demonstrated normal LV wal l motion. She may have had a plaque rupture event that reperfused vs a vasospastic event in the setting of acute illness/presser support. At this time she denies any anginal symptoms. She had a recent echocardiogram which demonstrated normal left ventricular function and no regional wall motion abnormality. She intends on increasing her physical activity, she was instructed to do this gradually and advised to call us if any chest pains or shortness of br eath occur. -Follow-up with cardiology in 1 year Thank you for allowing me to participate in the care of this patient. Primary Care Physician: MICK Junior DO documented in this enco unter Plan of Treatment Not on filedocumented as of this encounter Visit Diagnoses + + | Diagnosis | + + | ST elevation myocardial infarction (STEMI), unspecified artery (HCC) - Primary | + + documented in this encounter
--- OUTSIDE RECORDS SUMMARY | ~2020-05-21 | XMS | Encounter Summary ---
Demographics + + + | Address | [address] | | | [place] [address] | + + + | Home Phone | | + + + | Preferred Language | Unknown | + + + | Marital Status | Single | + + + | Denominational Affiliation | 1041 | + + + | Race | White | + + + | Ethnic Group | Not or | + + + Author + + + | Author | [facility] | | | and [place] | + + + | Organization | [facility] | | | and [place] | + + + | Address | Unknown | + + + | Phone | Unavailable | + + + Support + + +---------+ + | Name | Relationship | Address | Phone | + + +---------+ + | Dogulas Springer | ECON | Unknown | | + + +---------+ + | Isabelel Bell | ECON | Unknown | | + + +---------+ + | Facundo Springer | ECON | Unknown | | + + +---------+ + Care Team Providers + +------+ + | Care Foxing Closer Name | Role | Phone | + +------+ + | Mick Malik MD | PCP | | + +------+ + Encounter Details +--------+ + + + + | Date | Type | Department | Care Team | Description | +--------+ + + + + | 06/10/ | Hospital | [facility] | Mick Malik | Visit for screening | | 2019 | Encounter | MED CTR MAMMOGRAPHY | MD [address] | mammogram | | | | [address] | [place] | | | | | [place] | [place], [place] [address] | | | | | [address] | [phone] | | | | | [phone] | | | +--------+ + + + [...] + | ASHANTI TOMOSYN | Routin | 06/10/2019 | Visit for | Results for this | | SCREENING BILATERAL | e | 1:18 PM | screening mammogram | procedure are in the | | | | PDT | | results section. | + +--------+ + + + documented in this encounter Results ASHANTI Tomosynthesis Screening Bilateral (06/10/2019 1:18 PM PDT) + + | Specimen | + + | | + + + + + | Impressions | Performed At | + + + | No mammographic evidence of malignancy. BI-RADS CATEGORY 2: | [facility] | | BENIGN FINDINGS RECOMMENDATION: Annual screening. Dictated and | | | Signed by: Segundo Foreman MD Electronically signed: 06/14/2019 | | | 2:07 PM | | + + + + + + | Narrative | Performed At | + + + | EXAM: ASHANTI TOMOSYN SCREENING BILATERAL dated 06/10/2019 12:10 PM | [facility] | | HISTORY: Routine Screening. TECHNIQUE: Bilateral digital CC | | | and MLO. Jean Paul synthesis was performed. CAD utilized. | | | COMPARISON: Back to 11/19/2012 FINDINGS: Scattered areas of | | | fibroglandular density are present bilaterally. Jean Paul synthesis | | | and standard mammographic images demonstrate no suspicious masses, | | | area of architectural distortion or suspicious groups of | | | microcalcifications. Benign breast calcifications. Images were | | | reviewed with CAD. | | + + + + + | Procedure Note | + + | Flavio, Rad Results In - 06/14/2019 2:10 PM PDT EXAM: ASHANTI TOMOSYN SCREENING BILATERAL | | dated 06/10/2019 12:10 PMHISTORY: Routine Screening. TECHNIQUE: Bilateral digital CC | | and MLO. Jean Paul synthesis was performed. CADutilized.COMPARISON: Back to | | 11/19/2012FINDINGS: Scattered areas of fibroglandular density are present bilaterally. | | Jean Paul synthesis and standard mammographic images demonstrate no suspiciousmasses, area of | | architectural distortion or suspicious groups ofmicrocalcifications. Benign breast | | calcifications.Images were reviewed with CAD.IMPRESSION: No mammographic evidence of | | malignancy.BI-RADS CATEGORY 2: BENIGN FINDINGSRECOMMENDATION: Annual screening.Dictated | | and Signed by: Segundo Foreman MD Electronically signed: 06/14/2019 2:07 PM | |FINDINGS: | |Scattered areas of fibroglandular density are present bilaterally. | | | |Jean Paul synthesis and standard mammographic images demonstrate no suspicious | |masses, area of architectural distortion or suspicious groups of | |microcalcifications. Benign breast calcifications. | | | |Images were reviewed with CAD. | | | |IMPRESSION: | |No mammographic evidence of malignancy. | | | |BI-RADS CATEGORY 2: BENIGN FINDINGS | | | |RECOMMENDATION: Annual screening. | | | |Dictated and Signed by: Segundo Foreman MD | | Electronically signed: 06/14/2019 2:07 PM | + + + +---------+ + + | Performing | Address | City[facility] | Phone Number | | Organization | | | | + +---------+ + + | [facility] | | | | + +---------+ + + documented in this encounter Visit Diagnoses + + | Diagnosis | + + | Visit for screening mammogram Other screening mammogram | + + documented in this encounter"
--- OUTSIDE RECORDS SUMMARY | ~2020-05-21 | XMS | Encounter Summary ---
Demographics + + + | Address | [address] | | | [place] [address] | + + + | Home Phone | | + + + | Preferred Language | Unknown | + + + | Marital Status | Single | + + + | Pentecostal Affiliation | CAT | + + + [...] Team Providers + +------+ + | Care User Experience Designer Name | Role | Phone | + +------+ + | Juan Dong MD | PCP | | + +------+ + Encounter Details +--------+ + + + + | Date | Type | Department | Care Team | Description | +--------+ + + + + | 07/16/ | MyChart | Otolaryngology | Rosalind Wu, | RE:labs | | 2017 | Encounter | Head and Neck | [address] | | | | | Surgery Services at | [facility] | | | | | [address] | [place], [place] | | | | | [address] | [address] | | | | | Physician's | [phone] | | | | | [address], 2nd floor | | | | | | [place], [place] | | | | | | [address] | | | | | | [phone] | | | +--------+ + + + [...] this encounter Miscellaneous Notes Telephone Encounter - Gila Bello LPN - 07/17/2017 3:21 PM PSTSpoke with patient janet duggan she received Dr. Wu's message regarding stopping calcium. Will send BMP order to [facility]. Patient is curious about her pathology. Let her know I will check with MLS and get back to her. She stated a verbal understanding and had no additional questions or concerns. documente d in this encounter Plan of Treatment Not on filedocumented as of this encounter Visit Diagnoses + + | Diagnosis | + + | Primary hyperparathyroidism (HCC) - Primary Primary hyperparathyroidism | + + documented in this encounter"
--- OUTSIDE RECORDS SUMMARY | ~2020-05-21 | XMS | Encounter Summary ---
Demographics + + + | Address | [address] | | | [place] [address] | + + + | Home Phone | | + + + | Preferred Language | Unknown | + + + | Marital Status | Single | + + + | Confucianist Affiliation | 1041 | + + + | Race | White | + + + | Ethnic Group | Not or | + + + Author + + + | Author | [facility] | | | and [place] | + + + | Organization | [facility] | | | [...] Team Providers + +------+ + | Care Government Relations Analyst Name | Role | Phone | + +------+ + | Mick Malik MD | PCP | | + +------+ + Encounter Details +--------+ + + + + | Date | Type | Department | Care Team | Description | +--------+ + + + + | 01/10/ | Imaging | [facility] | Provider, | | | 2019 | Exam | MED CTR EXTERNAL | [address] | | | | | IMAGING [address] | [address] | | | | | [address] | [place] [address] | | | | | [place] [address] | | | | | | [phone] | | | +--------+ + + + [...] + +--------+ + + + | XR CERVICAL SPINE 4 | Routin | 12/29/2019 | | Results for this | | OR 5 VWS | e | 12:00 AM | | procedure are in the | | | | PDT | | results section. | + +--------+ + + + documented in this encounter Results XR Cervical Spine 4 or 5 Vws (12/29/2019 12:00 AM PDT) + + | Specimen [...]
--- OUTSIDE RECORDS SUMMARY | ~2020-05-21 | XMS | Encounter Summary ---
Demographics + + + | Address | [address] | | | [place] [address] | + + + | Home Phone [...] Author + + + | Author | [facility] | | | and [place] | + + + | Organization | [facility] | | [...] Team Providers + +------+ + | Care Box Coverer Hand Name | Role | Phone | + +------+ + | Mick Malik MD | PCP | | + +------+ + Encounter Details +--------+ + + + + | Date | Type | Department | Care Team | Description | +--------+ + + + + | 11/16/ | Imaging | [facility] | Provider, | | | 2019 | Exam | MED [facility] EXTERNAL | [address] | | | | | IMAGING [address] | [address] | | | | | [address] | [place] [address] | | | | | [place] [address] | | | | | | [phone] | | | +--------+ + + + [...] + +--------+ + + + | XR SHOULDER LEFT 2 + | Routin | 11/12/2018 | | Results for this | | VW | e | 12:30 PM | | procedure are in the | | | | PDT | | results section. | + +--------+ + + + documented in this encounter Results XR Shoulder Left 2 + Vw (11/12/2018 12:30 PM PDT) + + | Specimen | [...]
--- OUTSIDE RECORDS SUMMARY | ~2020-05-21 | XMS | Encounter Summary ---
Demographics + + + | Address | [address] | | | [place] [address] | + + + | Home Phone [...] Team Providers + +------+ + | Care Mission Assessment Specialist Name | Role | Phone | + +------+ + PCP | Unavailable | + +------+ + Encounter Details +--------+ + + + + | Date | Type | Department | Care Team | Description | +--------+ + + + + | 02/20/ | Hospital | [facility] | | | | 2002 | Encounter | MED CTR EMERGENCY | | | | | | CENTER [address] | | | | | | [place] | | | | | | [address] | | | | | | [phone] | | | +--------+ + + + [...]
--- OUTSIDE RECORDS SUMMARY | ~2020-05-21 | XMS | Encounter Summary ---
Demographics + + + | Address | [address] | | | [place] [address] | + + + | Home Phone [...] Author + + + | Author | [facility] | | | and [place] | + + + | Organization | [facility] | | | and [place] | + + + | Address | Unknown | + + + | Phone | Unavailable | + + + Support + + +---------+ + | Name | Relationship | Address | Phone | + + +---------+ + | oDuglas Springer | ECON | Unknown | | + + +---------+ + | Isabelel Bell | ECON | Unknown | | + + +---------+ + | Facundo Springer | ECON | Unknown | | + + +---------+ + Care Team Providers + +------+ + | Care Jewelry Enameler Name | Role | Phone | + +------+ + | Mick Malik MD | PCP | | + +------+ + Encounter Details +--------+ + + + + | Date | Type | Department | Care Team | Description | +--------+ + + + + | 05/28/ | Hospital | [facility] | Caitlin Shore | Visit for screening | | 2018 | Encounter | MED CTR MAMMOGRAPHY | Lissett Gomez DO | mammogram | | | | [address] | [address] | | | | | [place] | [place] | | | | | [address] | [address] | | | | | [phone] | | | +--------+ + + + [...] + | ASHANTI TOMOSYN | Routin | 05/28/2018 | Visit for | Results for this | | SCREENING BILATERAL | e | 8:43 AM | screening mammogram | procedure are in the | | | | PDT | | results section. | + +--------+ + + + documented in this encounter Results ASHANTI Tomosynthesis Screening Bilateral (05/28/2018 8:43 AM PDT) + + | Specimen | + + | | + + + + + | Narrative | Performed At | + + + | EXAM: ASHANTI TOMOSYN SCREENING BILATERAL dated 05/28/2018 7:58 AM | [facility] | | HISTORY: Routine Screening. Family history of breast cancer. | | | TECHNIQUE: Bilateral digital CC and MLO. Jean Paul synthesis was | | | performed. CAD utilized. COMPARISON: 01/30/2017, 12/03/2015, | | | 11/29/2014 FINDINGS: Scattered areas of fibroglandular density are | | | present bilaterally. Jean Paul synthesis and standard mammographic | | | images demonstrate no suspicious masses, area of architectural | | | distortion or suspicious groups of microcalcifications. Benign breast | | | calcifications. Images were reviewed with CAD. IMPRESSION - | | | No mammographic evidence of malignancy. BI-RADS CATEGORY 2: BENIGN | | | FINDINGS RECOMMENDATION: Annual screening. Dictated and | | | Signed by: Segundo Foreman MD Electronically signed: 05/28/2018 | | | 11:41 AM | | + + + + + | Procedure Note | + + | Flavio, Rad Results In - 05/28/2018 11:44 AM PDT EXAM: ASHANTI TOMOSYN SCREENING BILATERAL | | dated 05/28/2018 7:58 AMHISTORY: Routine Screening. Family history of breast | | cancer.TECHNIQUE: Bilateral digital CC and MLO. Jean Paul synthesis was performed. | | CADutilized.COMPARISON: 01/30/2017, 12/03/2015, 11/29/2014FINDINGS: Scattered areas of | | fibroglandular density are present bilaterally. Jean Paul synthesis and standard | | mammographic images demonstrate no suspiciousmasses, area of architectural distortion or | | suspicious groups ofmicrocalcifications. Benign breast calcifications.Images were | | reviewed with CAD.IMPRESSION - No mammographic evidence of malignancy.BI-RADS CATEGORY | | 2: BENIGN FINDINGSRECOMMENDATION: Annual screening.Dictated and Signed by: Segundo | | MD Ahsan Electronically signed: 05/28/2018 11:41 AM | |Scattered areas of fibroglandular density are [...] Segundo Foreman MD | | Electronically signed: 05/28/2018 11:41 AM | + + + +---------+ + [...]
--- OUTSIDE RECORDS SUMMARY | ~2020-05-21 | XMS | Encounter Summary ---
Demographics + + + | Address | [address] | | | [place] [address] | + + + | Home Phone | | + + + | Preferred Language | Unknown | + + + | Marital Status | Single | + + + | Church Affiliation | CAT | + + + | Race | White | + + + | Ethnic Group | Not or | + + + Author + + + | Author | [facility] | + + + | Organization | [facility] | + + + | Address | Unknown | + + + | Phone | Unavailable | + + + Support + + +---------+ + | Name | Relationship | Address | Phone | + + +---------+ + | Douglas Springer | ECON | Unknown | | + + +---------+ + Care Team Providers + +------+ + | Care Clinical Nursing Director Name | Role | Phone | + +------+ + | Juan Dong MD | PCP | | + +------+ + Encounter Details +--------+---------+ + + + | Date | Type | Department | Care Team | Description | +--------+---------+ + + + | 07/06/ | Office | Preoperative | Angie Bradford FNP | Pre-op evaluation | | 2017 | Visit | Medicine Clinic at | [address] | (Primary Dx) | | | | [facility] 4th Floor [address] [place], | | | | | [place] | [place] [address] | | | | | Mailcode: [facility] | [phone] | | | | | [place] [facility] | | | | | | and Healing, | | | | | | Building [address]4th Floor | | | | | | [place], [place] | | | | | | [address] | | | | | | [phone] | | | +--------+---------+ + + + Anesthesia Record + + [...] | Meds | +------+ + + + No medications | on file. | + + + + + | No agents on file. | + + + + | No [...] by | 07/08/17 1255 by | | mikie | Right; Forearm; 20 g; Lidocaine; | Harshad Turner RN | Kesha Jackman RN | | IV | No; Positive; 07/08/17; 1255; | | | | | Discharge | | | +--------+ + + + | Periph | 07/07/17; 1115; Clinic Staff; | 07/07/17 1115 by | 07/08/17 0859 by | | mikie saravia heavy equipment sales manager; Left; Wrist; 18 g; | Lowell Saravia, | Kesha Jackman RN | | IV | Positive; 07/08/17; 0859; Per | ARTS MANAGER | | | | patient/family request | [...] documented as of this encounter Progress Notes Angie Bradford NP - 07/06/2017 2:40 PM PSTFormatting of this note might be different from t he original. PREOPERATIVE CONSULT NOTE Author: Angie Bradford NP Referring Physician: Dr. Rosalind Wu Primary Care Provider: Juan Dong MD This PMC visit was completed by phone per discussion with Dr. Doll. H&P with PCP on - media. EKG and ECHO completed. Pt traveling from out of town. Reason for Consult: Preoperative evaluation and risk assessment Proposed Procedure/Date: BILATERAL PARATHYROIDECTOMY OR EXPLORATION OF PARATHYROID(S) RE-EX PLORATION POSSIBLE CRYOPRESERVATION on 07/07/17 HISTORY OF PRESENT ILLNESS: Joselyn Leung is a 71 y.o. female here for preoperative evaluatio n of medical problems in anticipation of the above procedure. Pt has dx of primary hyperpar athyroidism. Symptoms related to the diagnosis: hypercalcemia, osteoporosis. Pertinent medical problems discussed during this visit: CAD - history of acute STEMI in the setting of severe sepsis/resp failure: Subsequent Card iology eval - normal perfusion imaging. Abnormal pre op EKG triggered ECHO which revealed n o wall motion abnormalities, normal EF. She reports intermittent palpitations "feels like a catch". Denies CP, presyncope, syncope. Very active - walked five miles around [place] last week GERD: controlled on prn PPI. Asthma: pt reports reflux induced asthma - she does not use an inhaler. Chronic low back pain: history of L5-S1 laminectomy. Stable with no medications. Perioperative cardiac risks: CAD no CHF no CVA no CKD with creatinine >2 no DM treated with insulin no Functional Capacity: Moderate (4-10 mets) Prior complications of anesthesia: none ROS: Pulmonary: Reflux induced asthma - no treatments. Pt. Has asthma No dx of sleep apnea Cardiovascular: "intermittent "catch" - a left sided - funny feeling - palpitation. Denies CP, presyncope, syncope. ECHO normal. Activity: walks 2 flights - walks 5 miles last Thursday at the [place] without CP. Func tional Capacity: Moderate - [...] other heme, Malignancy: no cancer, Location: Metastasis: Current medications reviewed / updated Current Outpatient Prescriptions Medication Sig cholecalciferol (Vitamin D3) 1,000 unit oral tablet Take 2,000 Units by mouth once tae y. Coenzyme Q10 10 mg oral capsule Take by mouth. multivitamin-minerals oral tablet Take 1 tablet by mouth once daily. omeprazole 10 mg oral capsule,delayed release(DR/EC) Take 2 capsules by mouth once tae y. Allergies reviewed / updated Allergies Allergen Reactions Paroxetine Hcl Anxiety and Rash Codeine Rash Prednisone Hives Prozac [Fluoxetine Hcl] Unknown serotonin syndrome?? Reclast [Zoledronic Avzj-Urxemfkt-Cvboq] Nausea and Vomiting Sertraline Unknown serotonin syndrome?? Tramadol Lip Swelling Past medical history reviewed / updated Past Medical History: Diagnosis Date Hx of myocardial infarction PONV (postoperative nausea and vomiting) Past surgery reviewed / updated Past Surgical History Procedure Laterality Date section 1977,1979 Tonsil and adenoid surgery 1951 Carpal tunnel release 1981,1982 Cholecystectomy 2000 L5 laminectomy Family history reviewed / updated Family History Problem Relation Hypertension Mother Heart Attack Father Blood Disease Brother Social history reviewed / updated Social History Substance Use Topics Smoking status: Never Smoker Smokeless tobacco: Never Used Alcohol use Yes Comment: social PHYSICAL EXAM: Deferred - phone apt. Pre Op Exam per anesthesia. LABS & DATA REVIEWED/ORDERED Lab Results Component Value Date CR 1.0 05/15/2017 EKG: Results for orders placed or performed in visit on 03/19/17 12 LEAD ECG Result Value Ref Range VENTRICULAR RATE 72 bpm ATRIAL RATE 71 ms P-R INTERVAL 156 ms P AXIS 13 deg QRS DURATION 82 ms QT 404 ms QTCB 443 ms R AXIS -12 deg T AXIS 15 deg ECG IMPRESSION SINUS RHYTHM ECG IMPRESSION ABNRM R PROG, CONSIDER ASMI OR LEAD PLACEMENT- ABNORMAL ECG - ECG IMPRESSION Electronically signed by: NICK SAUCEDO 03-19-2017 13:48:15 Dec, 2016 Media. ECHO - 8-- 1. Overall left ventricular systolic function is normal with, an EF between 60 - 65 %. 2. The right ventricle is normal in size and function. 3. No significant valvular abnormali ty. 4. There are no significant changes noted in comparison to the previous echocardiographi c study, done 01/01/15. March, Nuc Med Stress ECHO IMPRESSIONS: Average exercise time No exercise-induced arrhythmias, ischemia, or symptoms No significant rest or stress perfusion abnormality Normal LV systolic function No comparison studies available. Perioperative risk calculators 2014 ACC/AHA Perioperative Cardiac Risk Stratification (assumes non-emergent, non-cardiac p rocedure) Are active cardiac conditions present? No Calculate the combined surgical and patient-specific risk: RCRI risk calculator (one point for each "yes" answer) A. Elevated risk surgery?: no B. Ischemic heart disease: yes C. Compensated / prior heart failure: no D. Diabetes mellitus (treated with insulin): no E. Renal insufficiency (Cr>2): no F. Cerebrovascular disease: no Risk of MACE 0 risk factors - 0.4% 1 risk factor - 0.9% 2 risk factors - 6.6% 3 risk factors - 11% The risk of major adverse cardiac event (MACE) is: less than 1%. No further risk stratific ation for coronary disease is indicated. Estimated ASA class 2 ASSESSMENT and RECOMMENDATIONS: Perioperative risk assessment: Joselyn Leung is a 71 y.o. female with diagnosis of prima ry hyperparathyroidism, scheduled for BILATERAL PARATHYROIDECTOMY OR EXPLORATION OF PARATHYR OID(S) RE-EXPLORATION POSSIBLE CRYOPRESERVATION . Based on the clinical information obtaine d and reviewed during this visit, the overall assessment is that the patient is having elect cuca surgery with risk factors. The patient is stable / optimized for surgery. Additional t esting/optimization is not needed. Medication management recommendations: The patient was advised to continue all usual med ications except as noted in Patient Instructions (After Visit Summary given to pt) CAD - history of acute STEMI in the setting of severe sepsis/resp failure: Subsequent C ardiology eval - normal perfusion imaging. Abnormal pre op EKG triggered ECHO which reveale d no wall motion abnormalities, normal EF. She reports intermittent palpitations "feels like a catch". Denies CP, presyncope, syncope. Active - walked five miles around [facility]. No further evaluation needed. GERD: controlled on prn PPI. Advised to continue the night before surgery. Asthma: pt reports reflux induced asthma - she does not use an inhaler. Denies SOB, whe abdulkadir. Chronic low back pain: history of L5-S1 laminectomy. Stable with no medications. Thank you for the opportunity to contribute to this patient's care. Angie Bradford NP [facility] [address]LO[address] [place] [phone] documented in this encou nter Plan of Treatment Not on filedocumented as of this encounter Visit Diagnoses + + | Diagnosis | + + | Pre-op evaluation - Primary Preoperative examination, unspecified | + + documented in this encounter
--- OUTSIDE RECORDS SUMMARY | ~2020-05-21 | XMS | Encounter Summary ---
Demographics + + + | Address | [address] | | | [place] [address] | + + + | Home Phone [...] + + + | Author | [facility] | | | and [place] | + + + | Organization | [facility] | | | and [...] Team Providers + +------+ + | Care Cabin Service Agent Name | Role | Phone | + +------+ + PCP | Unavailable | + +------+ + Encounter Details +--------+ + + + + | Date | Type | Department | Care Team | Description | +--------+ + + + + | 10/10/ | Hospital | [facility] | | | | 2006 | Encounter | [facility] | | | | | [facility] [address] | | | | | | [place] | | | | | | [address] | | | | | | [phone] | | | +--------+ + + + [...]
--- OUTSIDE RECORDS SUMMARY | ~2020-05-21 | XMS | Encounter Summary ---
Demographics + + + | Address | [address] | | | [place] [address] | + + + | Home Phone | | + + + | Preferred Language | Unknown | + + + | Marital Status | Single | + + + | Oriental Orthodox Affiliation | 1041 | + + + | Race | White | + + + | Ethnic Group | Not or | + + + Author + + + | Author | [facility] | | | and [place] | + + + | Organization | [facility] | | [...] Team Providers + +------+ + | Care Respiratory Clinician Name | Role | Phone | + +------+ + PCP | Unavailable | + +------+ + Encounter Details +--------+ + + + + | Date | Type | Department | Care Team | Description | +--------+ + + + + | 04/04/ | Hospital | [facility] | | | | 2010 | Encounter | [facility] EM[facility] | | | | | | CENTER [address] | | | | | | [place] | | | | | | [address] | | | | | | [phone] | | | +--------+ + + + [...] documented as of this encounter ED Notes Steve Sheldon MD - 04/04/2011 6:08 PM PDTDATE: 04/04/2011 CHIEF COMPLAINT: Back pain. HISTORY OF PRESENT ILLNESS: The patient is a 65-year-old complaining of back pain that has been ongo ing since December, but had worsened over the past few days. She denies any recent tr auma. She has not had bowel or bladder problems. She does have pain radiating into the left leg, but no specific weakness. She has not had fever. She has had previous back surgeries before. [facility] after an episode of syncope with the back pa in, had an MRI at that point. Reported clear neurolo gic injury, but she had seen it sounds like a neurologist, as well. She has been speaking with her bret martino doctor. Been on ibupro fen, done physical therapy, but continues to have symptoms, so came in [facility] for evaluat ion. Denies other specific complaints currently. PAST MEDICAL HISTORY: History of back pain, as per HPI, gastric reflux, anxiety. MEDICATIONS 1. Protonix. 2. Pepcid. 3. Vitamins. 4. Lorazepam. 5. Ibuprofen. 6. Vitamin D. ALLERGIES: CODEINE CAUSES A RASH. SOCIAL HISTORY: Noncontributory. REVIEW OF SYSTEMS: As per HPI. All other systems negative. PHYSICAL EXAMINATION VITAL SIGNS: Afebrile, respiratory rate 20, heart rate 87, BP 107/73, O2 saturations 98%. GENERAL: Alert, oriented, appears nontoxic, but anxious. HEENT: Normocephalic, atraumatic. Mucous membranes are moist. Oropharynx clear. NECK: Without any meningismus. CARDIOVASCULAR: Regular rate. No murmur, rub, or gallop. PULMONARY: Clear to auscultation. No wheeze or rhonchi. BACK: Reveals some mild diffuse tenderness, without crepitus, step-offs, or deformity. NEUROLOGIC: Grossly intact. No focal deficit. EMERGENCY DEPARTMENT COURSE: We did do x-rays of her cervical spine, revealed osteoporosis and scoli osis, but no other acute abnormality. We did a CBC, electrolytes. Apparently she has had some issues with hyponatremia, she is 13 3 here [facility], otherwise appears nontoxic. We did treat her with some Dilaudid here for pain, Zofran as well. At this point it appears to be an exacerbation of her back pain. I do think she can continue to follow up with her family doctor. Consi floyd further evaluation, consider repeat imaging , or worsening symptoms. Will go ahead and se nd her with some [place]. Limit activity to increased pain. R eturn for worsening symptoms, not improvin g, other complaints. DIAGNOSIS: BACK PAIN EXACERBATION. DISPOSITION: The patient discharged home. Instructions as above. DICTATED BY: Steve Sheldon MD Emergency Medicine JOB #: [id number] EXT JOB #:[id number] <Electronicall y Signed by Steve Sheldon MD> 04/05/11 2159 documented in this encounter Plan of Treatment Not on filedocumented as of this encounter Procedures + +--------+ + + + | Procedure Name | Priori | Date/Time | Associated Diagnosis | Comments | | | ty | | | | + +--------+ + + + | CBC WITH | Routin | 04/04/2011 | | Results for this | | DIFFERENTIAL | e | 8:08 PM | | procedure are in the | | | | PDT | | results section. | + +--------+ + + + | BASIC METABOLIC | Routin | 04/04/2011 | | Results for this | | PANEL | e | 8:08 PM | | procedure are in the | | | | PDT | | results section. | + +--------+ + + + | XR LUMBAR SPINE 2 OR | | 04/04/2011 | | Results for this | | 3 VW | | 6:08 PM | | procedure are in the | | | | PDT | | results section. | + +--------+ + + + | XR THORACIC SPINE 2 | | 04/04/2011 | | Results for this | | VW | | 6:08 PM | | procedure are in the | | | | PDT | | results section. | + +--------+ + + + documented in this encounter Results CBC with Differential (04/04/2011 8:08 PM PDT) + +---------+ + + + | [...] + + + | Red Blood | 4.18 | 3.70 - 5.20 | [facility] | | | Cells | | M/uL | [facility] | | | | | [facility] | | | | | | [facility] - | | | | | | LABORATORY | | + +---------+ + + + | Hemoglobin | 11.9 | 11.5 - 16.0 | [facility] | | | | | gm/dL | [facility] | | | | | | [facility] | | | | | | [facility] - | | | | | | LABORATORY | | + +---------+ + + + | Hematocrit | 35.5 | 34.0 - 47.0 % | [facility] | | | | | | [facility] | | | | | | [facility] | | | | | | [facility] - | | | | | | LABORATORY | | + +---------+ + + + | MCV | 84.8 | 83.0 - 101.0 fL | [facility] | | | | | | [facility] | | [facility] | [facility] | | | | | | [facility] - | | | | | | LABORATORY | | + +---------+ + + + | MCH | 28.3 | 28.0 - 35.0 pg | [facility] | | | | | | [facility] | | | | | | [facility] | | | | | | [facility] - | | | | | | LABORATORY | | + +---------+ + + + | MCHC | 33.4 | 32.0 - 36.0 | [facility] | | | | | g/dL | [facility] | | | | | | [facility] | | | | | | C[facility] - | | | | | | LABORATORY | | + +---------+ + + + | RDW-CV | 13.7 | <15.0 % | [facility] | | | | | | [facility] | | [facility] | [facility] | | | | | | [facility] - | | | | | | LABORATORY | | + +---------+ + + + | Platelet | 332 | 140 - 440 K/uL | [facility] | | | Count | | | [facility] | | | | | | [facility] | | | | | | [facility] - | | | | | | LABORATORY | | + +---------+ + + + | % | 51.0 | 45 - 75 % | [facility] | | | Neutrophils | | | [facility] | | | | | | [facility] | | | | | | CENTER - | | | | | | LABORATORY | | + +---------+ + + + | % | 39.6 | 20 - 45 % | [facility] | | | Lymphocytes | | | [facility] | | | | | | [facility] | | | | | | CENTER - | | | | | | LABORATORY | | + +---------+ + + + | % Monocytes | 7.0 | 4 - 12 % | [facility] | | | | | | [facility] | | [facility] | | [facility] | | | | | | [facility] - | | | | | | LABORATORY | | + +---------+ + + + | % | 1.9 | 0 - 5 % | [facility] | | | Eosinophils | | | [facility] | | | | | | [facility] | | | | | | CENTER - | | | | | | LABORATORY | | + +---------+ + + + | % Basophils | 0.5 | 0 - 1 % | [facility] | | | | | | [facility] | | | | | | [facility] | | | | | | [facility] - | | | | | | LABORATORY | | + +---------+ + + + | Absolute | 4.2 | 1.5 - 6.6 K/uL | [facility] | | | Neutrophils | | | [facility] | | | | | | [facility] | | | | | | CENTER - | | | | | | LABORATORY | | + +---------+ + + + | Absolute | 3.3 (H) | 0.6 - 3.2 K/uL | [facility] | | | Lymphocytes | | | [facility] | | | | | | [facility] | | | | | | CENTER - | | | | | | LABORATORY | | + +---------+ + + + | Absolute | 0.6 | 0.0 - 1.0 K/uL | [facility] | | | Monocytes | | | [facility] | | | | | | [facility] | | | | | | CENTER - | | | | | | LABORATORY | | + +---------+ + + + | Absolute | 0.2 | 0.0 - 0.4 K/uL | [facility] | | | Eosinophils | | | [facility] | | | | | | MEDICAL | | | | | | CENTER - | | | | | | LABORATORY | | + +---------+ + + + | Absolute | 0.0 [...] + | [facility] | [address] | [place], [place] | [phone] | | [facility] | | [address] | | | - LABORATORY | | | | + + + + + | [facility] | [address] | [place], [place] | | | [facility] | | [address] [place] [address] | | | - LABORATORY | | | | + + + + + Basic Metabolic Panel (04/04/2011 8:08 PM PDT) + + + + + + | Component | Value | Ref Range | Performed | Pathologist | | | | | At | Signature | + + + + + + | Glucose | 115 (H) | 70 - 109 mg/dL | [facility] | | | | | | [facility] | | | | | | [facility]ICAL | | | | | | CENTER - | | | | | | LABORATORY | | + + + + + + | Calcium | 9.4 | 8.3 - 10.5 | [facility] | | | | | mg/dL | [facility] | | | | | | MEDICAL | | | | | | CENTER - | | | | | | LABORATORY | | + + + + + + | BUN | 10 | 7 - 18 mg/dL | [facility] | | | | | | [facility] | | | | | | [facility]ICAL | | | | | | CENTER - | | | | | | LABORATORY | | + + + + + + | Creatinine | 0.72 | 0.60 - 1.30 | [facility] | [...] + + + + | BUN/Creatin | 13.9 | 12 - 20 | [facility] | | | ine Ratio | | | [facility] | | | | | | MEDICAL | | | | | | CENTER - | | | | | | LABORATORY | | + + + + + + | Na | 133 (L) | 136 - 149 mEq/L | [facility] | | | | | | [facility] | | [facility] | | | MEDICAL | | | | | | CENTER - | | | | | | LABORATORY | | + + + + + + | K | 4.3 | 3.5 - 5.1 mEq/l | [facility] | | | | | | [facility] | | | | | | MEDICAL | | | | | | CENTER - | | | | | | LABORATORY | | + + + + + + | Cl | 100 | 98 - 109 mEq/l | [facility] [...] + + + | Anion Gap | 11.3 | 6.0 - 17.0 | [facility] | [...] + | [facility] | [address] | [place], [place] | [phone] | | [facility] | | [address] | | | - LABORATORY | | | | + + + + + | [facility] | [address] | [place], [place] | | | [facility] | | [id number] | | | - LABORATORY | | | | + + + + + XR Thoracic Spine 2 Vw (04/04/2011 6:08 PM PDT) + + | Specimen | + + | | + + + + + | Narrative | Performed At | + + + | [facility] Diagnostic Imaging Department | [facility] | | [address] [facility] | [facility] | | THORACIC SPINE SERIES, 1949 | DIAG IMG | | HOURS, 04/04/2011 CLINICAL HISTORY: BACK PAIN. FINDINGS: | | | There is S-scoliosis of the thoracolumbar spine with a | | | dextroscoliotic component at the mi d thoracic level at about T7 and | | | a levoscoliotic curve in the lumbar level. Thoracic bodies are diff | | | usely osteopenic. Multilevel spondylitic changes are identified most | | | prominent at the mid thoracic le juanita. No compression deformities are | | | seen. No bony destructive lesions are identified. IMPRESSION: | | | 1. SCOLIOSIS AND SPONDYLOSIS. Dictated Date/Time: 04/05/2011 | | | 09:50 Transcribed Date/Time: 04/05/2011 11:59 Information Assoc: | | | <Electronically Signed by Morgan Verdugo MD> 04/05/11 1244 | | + + + + + | Procedure Note | + + | Flavio, Rad Conversion - 10/07/2013 3:32 PM [facility] | | Diagnostic Imaging Department [address] [facility] | | THORACIC SPINE SERIES, 1949 HOURS, 04/04/2011 CLINICAL | | HISTORY: BACK PAIN. FINDINGS: There is S-scoliosis of the thoracolumbar spine with a | | dextroscoliotic component at the mid thoracic level at about T7 and a levoscoliotic | | curve in the lumbar level. Thoracic bodies are diffusely osteopenic. Multilevel | | spondylitic changes are identified most prominent at the mid thoracic level. No | | compression deformities are seen. No bony destructive lesions are identified. | | IMPRESSION: 1. SCOLIOSIS AND SPONDYLOSIS. Dictated Date/Time: 04/05/2011 | | 09:50Transcribed Date/Time: 04/05/2011 11:59Transcriptionist: <Electronically | | Signed by Morgan Verdugo MD> 04/05/11 1244 | |d thoracic level at about T7 and a levoscoliotic curve in the lumbar level. Thoracic brenton s are diff | |usely osteopenic. Multilevel spondylitic changes are identified most prominent at the mid t horacic le | |juanita. No compression deformities are seen. No bony destructive lesions are identified. | | | |IMPRESSION: | |1. SCOLIOSIS AND SPONDYLOSIS. | | | |Dictated Date/Time: 04/05/2011 09:50 | |Transcribed Date/Time: 04/05/2011 11:59 | |Information Assoc: | |<Electronically Signed by Morgan Verdugo MD> 04/05/11 1244 | + + + +---------+ + + | Performing | Address | City/State/Zipcode | Phone Number | | Organization | | | | + +---------+ + + | [facility] | | | | | [facility] | | | | + +---------+ + + XR Lumbar Spine 2 or 3 Vw (04/04/2011 6:08 PM PDT) + + | Specimen | + + | | + + + + + | Narrative | Performed At | + + + | [facility] Diagnostic Imaging Department | [facility] | | [address] [facility] | [facility] | | LUMBAR SPINE LIMITED SERIES, 1939 | DIAG IMG | | HOURS, 04/04/2011 CLINICAL HISTORY: BACK PAIN. FINDINGS: | | | There is grade I anterolisthesis of L4 over L5. No compression | | | deformities are identified. There is levoscoliosis on the frontal | | | projection with the apex at about the L2 level. The bones are | | | diffusely osteopenic. Spondylitic changes are noted at the lower | | | lumbar levels. IMPRESSION: 1. SCOLIOSIS AND SPONDYLOSIS. 2. | | | GRADE I ANTEROLISTHESIS OF L4 OVER L5. Dictated Date/Time: | | | 04/05/2011 09:48 Transcribed Date/Time: 04/05/2011 11:57 | | | Information Assoc: <Electronically Signed by Morgan Verdugo, | | | MD> 04/05/11 1244 | | + + + + + | Procedure Note | + + | Flavio, Rad Conversion - 10/07/2013 3:32 PM [facility] | | Diagnostic Imaging Department [address] [place] [address] | | LUMBAR SPINE LIMITED SERIES, 1939 HOURS, 04/04/2011 | | CLINICAL HISTORY: BACK PAIN. FINDINGS: There is grade I anterolisthesis of L4 over | | L5. No compression deformities are identified. There is levoscoliosis on the frontal | | projection with the apex at about the L2 level. The bones are diffusely osteopenic. | | Spondylitic changes are noted at the lower lumbar levels. IMPRESSION: 1. SCOLIOSIS AND | | SPONDYLOSIS. 2. GRADE I ANTEROLISTHESIS OF L4 OVER L5. Dictated Date/Time: 04/05/2011 | | 09:48Transcribed Date/Time: 04/05/2011 11:57Transcriptionist: <Electronically | | Signed by Morgan Verdugo MD> 04/05/11 1244 | |FINDINGS: There is grade I anterolisthesis of L4 over L5. No compression deformities are i dentified. | | There is levoscoliosis on the frontal projection with the apex at about the L2 level. The bones are | |diffusely osteopenic. Spondylitic changes are noted at the lower lumbar levels. | | | |IMPRESSION: | |1. SCOLIOSIS AND SPONDYLOSIS. | | | |2. GRADE I ANTEROLISTHESIS OF L4 OVER L5. | | | |Dictated Date/Time: 04/05/2011 09:48 | |Transcribed Date/Time: 04/05/2011 11:57 | |Information Assoc: | |<Electronically Signed by Morgan Verdugo MD> 04/05/11 1244 | + + + +---------+ + + | Performing | Address | City/State/Zipcode | Phone Number | | Organization | | | | + +---------+ + + | [facility] | | | | | [facility] | | | | + +---------+ + + documented in this encounter Visit Diagnoses Not on filedocumented in this encounter"
--- OUTSIDE RECORDS SUMMARY | ~2020-05-21 | XMS | Encounter Summary ---
Demographics + + + | Address | [address] | | | [place] [address] | + + + | Home Phone | | + + + | Preferred Language | Unknown | + + + | Marital Status | Single | + + + | Latter-Day Affiliation | CAT | + + + [...] Team Providers + +------+ + | Care Show Host Name | Role | Phone | + +------+ + | Juan Dong MD | PCP | | + +------+ + Reason for Referral Diagnostic Testing (Routine) +--------+--------+ + + + [...] | Loop | | | | | ([facility]) | Bina [facility] | Physician's | | | | | Procedures | [place], [place] | Pavilion, [address] | | | | | [address] NECK | [address] | Floor | | | | | PARATHYROID | | [place], [place] | | | | | [address] | | [address] | | | | | [address] [address] | | Phone: | | | | | TISSUE | | [phone] | | | | | CONTRAST | | Fax: | | | | | | | [phone] | +--------+--------+ + + + + Reason for Visit Diagnostic Testing (Routine) +--------+--------+ + + + [...] | | | | | Procedures | [place], [place] | Pavilion, [address] | | | | | CT NECK | [address] | Floor | | | | | PARATHYROID | | [place], [place] | | | | | [address] | | [address] | | | | | [place] [address] N[address]K | | Phone: | | | | | TISSUE | | [phone] | | | | | CONTRAST | | Fax: | | | | | | | [phone] | +--------+--------+ + + + + Encounter Details +--------+ + + + + | Date | Type | Department | Care Team | Description | +--------+ + + + + | 05/15/ | Hospital | Diagnostic Imaging | Ricco [facility]on, | | | 2016 | Encounter | Services at [facility] | [facility] | | | | | [address] | | | | | | [facility] | | | | | | [address] | | | | | | [place], [place] | | | | | | [address] | | | | | | [phone] | | | +--------+ + + + [...] | | | | | | | (HCC) | | | | | | + [...] 2 capsules by | | 0 | 05/15/ | | | oral capsule,delayed | mouth once daily. | | | 17 | | | release(/ELIA) | | | | | | + + + +---------+ + + documented as of this encounter Plan of Treatment Not on filedocumented as of this encounter Procedures + +--------+ + + + | Procedure Name | Priori | Date/Time | Associated Diagnosis | Comments | | | ty | | | | + +--------+ + + + | CT NECK PARATHYROID | Routin | 05/15/2017 | | Results for this | | W CONTRAST | e | 12:33 PM | Hyperparathyroidism | procedure are in the | | | | PDT | ([facility]) | results section. | + +--------+ + + + | CREATININE, POC | Routin | 05/15/2017 | | Results for this | | | e | 12:19 PM | Hyperparathyroidism | procedure are in the | | | | PDT | ([facility]) | results section. | + +--------+ [...] Note | + + | Service Account, Konkura In Interface - 05/15/2017 2:56 PM PDT [...] | | | + +---------+ + + CREATININE, POC (05/15/2017 12:19 PM PDT) + +-------+ + + + | Component | Value | Ref Range | Performed | Pathologist | | | | | At | Signature | + +-------+ + + + | CREATININE, | 1.0 | 0.6 - 1.1 mg/dL | [facility] - | | | POC | | | [facility] | | | | | | [facility] | | | | | | OF CARE | | | | | | TESTS | | + +-------+ + + + + + | Specimen | + + | Blood - Blood | | (substance) | + + + + + + + | Performing | Address | City/State/Zipcode | Phone Number | | Organization | | | | + + + + + | [facility] | [address] | [place], [place] | | | [facility]ENN[facility]ER [facility]EN[facility] | [facility] | [address] | | | TESTS | | | | + + + + + documented in this encounter Visit Diagnoses + + | Diagnosis | + + | Hyperparathyroidism (HCC) Hyperparathyroidism, unspecified | + + documented in this encounter Administered Medications + +---------+ +--------+------+------+ | Medication Order | MAR | Action | Dose | Rate | Site | | | Action | Date | | | | + +---------+ +--------+------+------+ | iohexol (OMNIPAQUE) 350 mg | IV Push | 05/15/20 | 100 mL | | | | iodine/mL injection 100 mL 100 | | 17 12:33 | | | | | mL, intravenous, ONCE, 1 dose, | | PM PDT | | | | | 05/15/17 at 1315 | | | | | | + +---------+ +--------+------+------+ +---+---+ | | | +---+---+ documented in this encounter"
--- OUTSIDE RECORDS SUMMARY | ~2020-05-21 | XMS | Encounter Summary ---
Demographics + + + | Address | [address] | | | [place] [address] | + + + | Home Phone | | + + + | Preferred Language | Unknown | + + + | Marital Status | Single | + + + | Druze Affiliation | CAT | + + + | Race | White | + + + | Ethnic Group | Not or | + + + Author + + + | Author | [facility] | + + + | Organization | [facility] | + + + | Address | Unknown | + + + | Phone | Unavailable | + + + Support + + +---------+ + | Name | Relationship | Address | Phone | + + +---------+ + | Douglas Springer | ECON | Unknown | | + + +---------+ + Care Team Providers + +------+ + | Care Remote Control Assembler Name | Role | Phone | + +------+ + | Juan Dong MD | PCP | | + +------+ + Encounter Details +--------+ + + + + | Date | Type | Department | Care Team | Description | +--------+ + + + + | 12/31/ | Document-Sc | Health Information | Unknown . | | | 2014 | anned | Services [id number] | | | | | [address] | | | | | | Mailcode: [id number] | | | | | | [facility] | | | | | | [place], [place] | | | | | | [address] | | | | | | [phone] | | | +--------+ + + + [...] + + + | RADIOLOGY | | 12/31/2014 | | Results for this | | | | 12:00 AM | | procedure are in the | | | | PDT | | results section. | + +--------+ + + + documented in this encounter Results RADIOLOGY (12/31/2014 12:00 AM PDT) + + + | Narrative | Performed At | + + + | | | + + + documented in this encounter Visit Diagnoses Not on filedocumented in this encounter"
--- OUTSIDE RECORDS SUMMARY | ~2020-05-21 | XMS | Encounter Summary ---
Demographics + + + | Address | [address] | | | [place] [address] | + + + | Home Phone | | + + + | Preferred Language | Unknown | + + + | Marital Status | Single | + + + | Spiritism Affiliation | 1041 | + + + | Race | White | + + + | Ethnic Group | Not or | + + + Author + + + | Author | [facility] | | | and [place] | + + + | Organization | [facility] | | [...] Team Providers + +------+ + | Care Pole Shaver Name | Role | Phone | + +------+ + PCP | Unavailable | + +------+ + Encounter Details +--------+ + + + + | Date | Type | Department | Care Team | Description | +--------+ + + + + | 02/18/ | Hospital | [facility] | | | | 1998 | Encounter | MED CTR GENERIC OP | | | | | | CONV DEPT [address] | | | | | | [place], | | | | | | [place] [address] | | | | | | [phone] | | | +--------+ + + + [...]
--- OUTSIDE RECORDS SUMMARY | ~2020-05-21 | XMS | Encounter Summary ---
Demographics + + + | Address | [address] | | | [place] [address] | + + + | Home Phone | | + + + | Preferred Language | Unknown | + + + | Marital Status | Single | + + + | Hinduism Affiliation | 1041 | + + + | Race | White | + + + | Ethnic Group | Not or | + + + Author + + + | Author | [facility] | | | and [place] | + + + | Organization | [facility] | | | [...] Team Providers + +------+ + | Care Police Captain Precinct Name | Role | Phone | + +------+ + PCP | Unavailable | + +------+ + Encounter Details +--------+ + + + + | Date | Type | Department | Care Team | Description | +--------+ + + + + | 04/27/ | Hospital | [facility] | Adalberto Tee | | | 2009 - | Encounter | MED CTR EMERGENCY | MD Alli [address] | | | | | [address] | [facility] | | | 04/28/ | | [place], [place] | [place] [address] | | | 2009 | | [address] | [phone] | | | | | [phone] | | | +--------+ + + + [...]
--- OUTSIDE RECORDS SUMMARY | ~2020-05-21 | XMS | Encounter Summary ---
Demographics + + + | Address | [address] | | | [place] [address] | + + + | Home Phone | | + + + | Preferred Language | Unknown | + + + | Marital Status | Single | + + + | Quaker Affiliation | CAT | + + + | Race | White | + + + | Ethnic Group | Not or | + + + Author + + + | Author | [facility] | + + + | Organization | [facility] | + + + | Address | Unknown | + + + | Phone | Unavailable | + + + Support + + +---------+ + | Name | Relationship | Address | Phone | + + +---------+ + | Douglas Springer | ECON | Unknown | | + + +---------+ + Care Team Providers + +------+ + | Care Slide Fastener Chain Assembler Name | Role | Phone | + +------+ + | Juan Dong MD | PCP | | + +------+ + Encounter Details +--------+ + + + + | Date | Type | Department | Care Team | Description | +--------+ + + + + | 03/19/ | Hospital | Cardiac | [facility] | | | 2017 | Encounter | Non-Invasive Testing | [address] | | | | | at [address] | [facility] | | | | | [address] | [place] [address] | | | | | [address] | | | | | | [place], [address] [place] [address] | | | | | | [place], [place] | | | | | | [address] | | | | | | [phone] | | | +--------+ + + + [...] at Time of Discharge + + + +---------+--------+ + | Medication | Sig | Dispensed | Refills | Start | End Date | | | | | | Date | | + + + +---------+--------+ + | cholecalciferol | Take 2,000 Units by | | 0 | | | | (Vitamin D3) 1,000 | mouth once daily. | | | | | | unit oral tablet | | | | | | + + + +---------+--------+ + | Coenzyme Q10 10 mg | Take by mouth. | | 0 | | | | oral capsule | | | | | | + + + +---------+--------+ + | | Take 1 tablet by | | 0 | | | | multivitamin-mineral | mouth once daily. | | | | | | s oral tablet | | | | | | + + + +---------+--------+ + documented as of this encounter Plan [...] the | | | | PDT | ([facility]) Coronary | results section. | | | | | artery disease, | | | | | | angina presence | | | | | | unspecified, | | | | | | unspecified vessel | | | | | | or lesion type, | | | | | | unspecified whether | | | | | | [place] or | | | | | | transplanted heart | | + +--------+ + + + documented in this encounter Results 12 LEAD ECG (03/19/2017 12:25 PM PDT) [...] + + + + + + | [facility] | [address] | [address] | [facility] [...] + + | [facility] | [address] | [place], [place] | | | CARDIOLOGY | [address] | [address] | | + + + + + documented in this encounter Visit Diagnoses Not on filedocumented in this encounter"
--- OUTSIDE RECORDS SUMMARY | ~2020-05-21 | XMS | Encounter Summary ---
Demographics + + + | Address | [address] | | | [place] [address] | + + + | Home Phone [...] Author + + + | Author | [facility] | + + + | Organization | [facility] | + + + | Address | Unknown | + + + | Phone | Unavailable | + + + Support + + +---------+ + | Name | Relationship | Address | Phone | + + +---------+ + | Douglas Springer | ECON | Unknown | | + + +---------+ + Care Team Providers + +------+ + | Care Hazard Waste Handler Name | Role | Phone | + +------+ + | Juan Dong MD | PCP | | + +------+ + Reason for Visit + + + | Reason | Comments | + + + | Hyperparathyroidism | | + + + Encounter Details +--------+---------+ + + + | Date | Type | Department | Care Team | Description | +--------+---------+ + + + | 05/15/ | Office | Otolaryngology | Rosalind Wu, | Primary | | 2017 | Visit | Thyroid Services at | MD [address] | hyperparathyroidism | | | | [address] | ([facility]) (Primary Dx); | | | | [address] | [place], [place] | Cough | | | | Physician's | [address] | | | | | Pavilion, 2nd floor | [phone] | | | | | [place], [place] | | | | | | [address] | | | | | | [phone] | | | +--------+---------+ + + + [...] + + + | Blood Pressure | 103/69 | 05/15/2017 2:23 PM | | | | | PDT | | + + + + + | Pulse | 87 | 05/15/2017 2:23 PM | | | | | PDT [...] + + + + | Weight | 55.1 kg (121 lb 6.4 | 05/15/2017 2:23 PM | | | | oz) | PDT | | + + + + + | Height | - | - | | + + + + + | Body Mass Index | - | - | | + + + + + documented in this encounter Patient Instructions Patient Instructions Rosalind Wu MD - 05/15/2017 4:00 PM PDTPreop Instructions: Do not take the following medications at least one week prior to surgery. Aspirin Nonsteroidal anti-inflammatory medications, such as Advil, Motrin Ginkgo biloba, Vitamin E, Marinette Wart, Fish oil, Green tea, Large doses of fahad. Do not eat or drink anything after midnight the night before surgery. You have acid reflux. It is recommended that you modify your diet: Avoid caffeine, citrus or acidic foods, chocolate. Do not eat or drink anything at night for at least 2 hours prior to going to bed. Avoid throat clearing. You should also elevate you head of the bed up by at least 30 degrees Increase your omeprazole to 20 mg dailyElectronically signed by Rosalind Wu MD at 05/01 2:46 PM PDT documented in this encounter Progress Notes Vargas, Luda - 05/15/2017 4:00 PM PDTprocedure was performed using the following instr uments: Description #1: 2.5MM Serial ID #1: [id number] signed by Luda Vargas at 05/15/2017 6:31 PM PDTSh Rosalind hackett MD - 05/15/2017 4:00 PM PDT PATIENT NAME: Joselyn Leung [facility] MR#: [id number] : 1945 Date of Service: 05/15/2017 REASON FOR FOLLOW-UP:hyperparathyroidism Joselyn Leung is a 71 y.o. female was previously seen at the [facility] for evaluation of hyperparathyroidism. She returns today to go over test results and ad dress additional questions. New symptoms and complaints: None. Has had cough (dry) for some time. Was told it is related to reflux Exam: Wt 55.1 kg (121 lb 6.4 oz), BP 103/69, Pulse 87. Neck: Palpable neck mass - no Lungs are clear to auscultation bilaterally. Heart - RRR without murmur. Studies since last visit: ECHO - 03-31-17 1. Overall left ventricular systolic function is normal with, an EF between 60 - 65 %. 2. The right ventricle is normal in size and function. 3. No significant valvular abnormali ty. 4. There are no significant changes noted in comparison to the previous echocardiographi c study, done 01/01/15. ASSESSMENT: Ms. Leung's diagnosis is consistent with primary hyperparathyroidism. Her joyce cation for surgery is osteoporosis (T score -4.7, radius) Probable left paraesophageal parathyroid. May have bilateral disease. RECOMMENDATIONS/PLAN - Start left, plan possible bilateral, possible reimplantation left ar m, possible cryopreservation. The potential complications of surgery, including but not limited to bleeding, infection, i njury to the recurrent laryngeal nerve resulting in voice change, swallowing difficulties, p ostoperative low calcium level which can result in numbness and tingling and the potential n eed for permanent calcium/vitamin D replacement, and neck pain were explained to the patient . The possibility of persistent or recurrent hypercalcemia requiring multiple operations was also explained. All of the patient's questions were answered. After fully reviewing with t he patient the procedure and its risks, written informed consent was obtained. Rosalind Wu M.D., F.A.C.S. Professor of Otolaryngology Department of Otolaryngology - Head & Neck Surgery Display Progress Note in MyChart: No Procedure Note: Procedure: Flexible Fiberoptic Laryngoscopy Surgeon: Rosalind Wu MD Indications: Cough, unable to examine larynx and hypopharynx adequately with mirror exam du e to strong gag, base of tongue and laryngeal anatomy Procedure: A pediatric fiberoptic scope was inserted through the nasal cavities. After th e rhinoscopy scope was passed through the more patent left nasal passage. The nasopharynx, larynx, hypopharynx were examined. Findings: The larynx and hypopharynx were without any mass or lesions. Vocal cord mucosa - There was mild edema of true vocal cords; There was moderate erythema o f mucosa over arytenoids. Vocal cord mobility: Right - mobile, slight limitation on abduction; Left - mobile Complications: None Rosalind Wu M.D. documented in this encounter Plan of Treatment Not on filedocumented as of this encounter Procedures + +--------+ + + + | Procedure Name | Priori | Date/Time | Associated Diagnosis | Comments | | | ty | | | | + +--------+ + + + | LAB REPORTS | | 07/13/2017 | | Results for this | | | | 12:00 AM | | procedure are in the | | | | PST | | results section. | + +--------+ + + + | NM | Routin | 05/15/2017 | Cough | | | LARYNGOSCOPY,FLEXIBL | e | 6:31 PM | | | | E, DIAGNOSTIC | | PDT | | | + +--------+ + + + documented in this encounter Results LAB REPORTS (07/13/2017 12:00 AM PST) + + + | Narrative | Performed At | + + + | | | + + + documented in this encounter Visit Diagnoses + + | Diagnosis | + + | Primary hyperparathyroidism (HCC) - Primary Primary hyperparathyroidism | + + | Cough | + + documented in this encounter"
--- OUTSIDE RECORDS SUMMARY | ~2020-05-21 | XMS | Encounter Summary ---
Demographics + + + | Address | [address] | | | [place] [address] | + + + | Home Phone [...] Author + + + | Author | [facility] | | | and [place] | + + + | Organization | [facility] | | [...] Team Providers + +------+ + | Care Ict Support And Test Engineers Name | Role | Phone | + +------+ + PCP | Unavailable | + +------+ + Encounter Details +--------+ + + + + | Date | Type | Department | Care Team | Description | +--------+ + + + + | 12/04/ | Hospital | [facility] | | | | 2008 | Encounter | [facility] | | | | | | CENTER [address] | | | | | | [place] | | | | | | [address] | | | | | | [phone] | | | +--------+ + + + [...]
--- OUTSIDE RECORDS SUMMARY | ~2020-05-21 | XMS | Encounter Summary ---
Demographics + + + | Address | [address] | | | [place] [address] | + + + | Home Phone [...] + + | Author | [facility] | + + + | Organization | [facility] | + + + | Address | Unknown | + + + | Phone | Unavailable | + + + Support + + +---------+ + | Name | Relationship | Address | Phone | + + +---------+ + | Douglas Springer | ECON | Unknown | | + + +---------+ + Care Team Providers + +------+ + | Care Chemical Research Technician Name | Role | Phone | + +------+ + | Juan Dong MD | PCP | | + +------+ + Reason for Visit + + + | Reason | Comments | + + + | Hyperparathyroidism | | + + + Consultation (Routine) [...] | | Hyperparathy | [place] | [address] | | | | | roidism | INTERNAL | [address] | | | | | ([facility]) | MEDICINE | [address] [place], | | | | | | [address] | [place] | | | | | | [place] | [address] | | | | | | [address] | Phone: | | | | | | [place], | [phone] | | | | | | [place] [address] | Fax: | | | | | | Phone: | [phone] | | | | | | [phone] | | | | | | | Fax: | | | | | | | [phone] | | +--------+--------+ + + + + Encounter Details +--------+---------+ + + + | Date | Type | Department | Care Team | Description | +--------+---------+ + + + | 03/19/ | Office | Otolaryngology | Rosalind Wu, | Primary | | 2017 | Visit | Thyroid Services at | [address] | hyperparathyroidism | | | | [address] | (HCC) (Primary Dx); | | | | [address] | [place], [place] | Osteoporosis without | | | | Physician's | [address] | pathological | | | | Pavilion, 2nd floor | [phone] | fracture | | | | [place], [place] | | | | | | [address] | | | | | | [phone] | | | +--------+---------+ + + + [...] encounter Progress Notes Rosalind Wu MD - 03/19/2017 11:[address] [facility] Department of Otolaryngology [facility] Name: Joselyn Leung Date of : 1945 Date of Procedure: 03/19/2017 Physician: Jose Wu M.D. Indications: 71 y.o. female with primary hyperparathyroidism. Ultrasound of the anterior ne ck was performed for localization of enlarged parathyroid gland(s) Procedure: Multiple real time longitudinal and transverse images were obtained using a hig h resolution [employer] Ultrasound unit with a high resolution, high frequency linear small pa rts transducer. Exam was performed and interpreted by Rosalind Wu M.D. Findings No hypoechoic nodules were identified that could be candidates for a parathyroid adenoma. There was a spongiform nodule in the right lobe measuring 8 x 3.8 x 6.5 mm, which does not meet criteria for fine needle aspiration biopsy (Images in IMPAX/PACS) Rosalind Wu M.D. documented in this encounter Plan of Treatment Not on filedocumented as of this encounter Procedures + +--------+ + + + | Procedure Name | Priori | Date/Time | Associated Diagnosis | Comments | | | ty | | | | + +--------+ + + + | UT US,HEAD/NECK | Routin | 03/19/2017 | Primary | | | TISSUES,B-SCAN/REAL | e | 9:55 PM | hyperparathyroidism | | | GLOBAL | | PDT | (HCC) | | + +--------+ + + + documented in this encounter Visit Diagnoses + + | Diagnosis | + + | Primary hyperparathyroidism (HCC) - Primary Primary hyperparathyroidism | + + | Osteoporosis without pathological fracture | + + documented in this encounter"
--- OUTSIDE RECORDS SUMMARY | ~2020-05-21 | XMS | Encounter Summary ---
Demographics + + + | Address | [address] | | | [place] [address] | + + + | Home Phone | | + + + | Preferred Language | Unknown | + + + | Marital Status | Single | + + + | Presybeterian Affiliation | [id number] | + + + | Race | White | + + + | Ethnic Group | Not or | + + + Author + + + | Author | [facility] | | | and [place] | + + + | Organization | [facility] | | [...] | + + +---------+ + | Facundo Spirnger | ECON | Unknown | | + + +---------+ + Care Team Providers + +------+ + | Care Technical Services Representative Name | Role | Phone | + +------+ + | Mick Malik MD | PCP | | + +------+ + Encounter Details +--------+ + + + + | Date | Type | Department | Care Team | Description | +--------+ + + + + | 04/12/ | Orders Only | [facility] | Maria Isabel Junior DO | | | 2019 | | CONVERSION [address] | [address] | | | | | [address] | [place], [place] | | | | | [place], [place] | [address] | | | | | [address] | | | | | | [phone] | | | +--------+ + + + [...] + | ECHO INTERPRETATION | Routin | 04/12/2019 | | Results for this | | OF OUTSIDE FILMS | e | 12:25 PM | | procedure are in the | | | | PDT | | results section. | + +--------+ + + + documented in this encounter Results ECHO Interpretation of Outside Films (04/12/2019 12:25 PM PDT) + + | Specimen | + + | | + + + + + | Impressions | Performed At | + + + | 1. Overall left ventricular systolic function is normal with, an EF | | | between 60 - 65 %. 2. No regional wall motion abnormalities. 3. The | | | right ventricle is normal in size and function. 4. Tjra-og-seoezlsn | | | mitral regurgitation is present. | | + + + + + + | Narrative | Performed At | + + + | Patient Name: JOSELYN LEUNG Date of : 1945 | | | Performing Physician: Maria Isabel Junior MD | | | | | | INDICATIONS HX UT CONCLUSIONS 1. | | | Overall left ventricular systolic function is normal with, an EF | | | between 60 - 65 %. 2. No regional wall motion abnormalities. 3. The | | | right ventricle is normal in size and function. 4. Qhkq-js-xlyuupnn | | | mitral regurgitation is present. FINDINGS -------- ECG rhythm: | | | Sinus rhythm. Study: A 2-dimensional transthoracic echocardiogram | | | with m-mode, spectral and color flow Doppler was perfomed. Study: | | | This was a technically adequate study. Left Ventricle: Overall left | | | ventricular systolic function is normal with, an EF between 60 - 65 %. | | | Left Ventricle: The left ventricle cavity size is normal. Left | | | Ventricle: Left ventricular wall thickness is normal. Left Ventricle: | | | No regional wall motion abnormalities. Left Ventricle: The diastolic | | | filling pattern is normal for the age of the patient. Right | | | Ventricle: The right ventricle is normal in size and function. Left | | | Atrium: The left atrium is normal in size. Right Atrium: The right | | | atrium is normal in size. Aortic Valve: The aortic valve is | | | trileaflet. Aortic Valve: There is no evidence of aortic | | | regurgitation. Aortic Valve: The aortic valve is mildly calcified. | | | Aortic Valve: There is no evidence of aortic stenosis. Mitral Valve: | | | Eufn-pd-cvyqkyli mitral regurgitation is present. Mitral Valve: Mild | | | mitral annular calcification present. Tricuspid Valve: The tricuspid | | | valve appears structurally normal. Tricuspid Valve: Mild tricuspid | | | regurgitation present. Tricuspid Valve: The right ventricular | | | systolic pressure (pulmonary artery systolic pressure), as measured by | | | Doppler, is 23.54mmHg. Pulmonic Valve: The pulmonic valve was not | | | well visualized. Pulmonic Valve: Trace pulmonic regurgitation. | | | Pericardium: There is no pericardial effusion. IVC/Hepatic Veins: The | | | inferior vena cava is normal in size and collapses > 50 % with sniff, | | | indicating normal central venous pressures. Aorta: The aortic root, | | | ascending aorta and aortic arch are normal. Mass: No mass visualized | | | Thrombus: No clot visualized Thrombus: No vegetation visualized. | | | Septum: No ASD observed. Septum: No VSD observed. MEASUREMENTS | | | Ao asc: 2.95 cm Ao sinus: 3.[address] junct: | | | 2.67 cm IVC: 2.01 cm EDV(Teich): 57.15 ml IVSd: 0.79 cm | | | LVIDd: 3.67 cm LVPWd: 0.77 cm LVOT Area: 2.84 cm2 LVOT | | | Diam: 1.90 cm %FS: 39.58 % EF(Teich): 71.00 % ESV(Teich): | | | 16.57 ml LVIDs: 2.21 cm SV(Teich): 40.58 ml RV Major: | | | 5.99 cm RV Minor: 2.36 cm LVEF MOD A2C: 60.30 % SV MOD A2C: | | | 44.76 ml LVEF MOD A4C: 55.76 % SV MOD A4C: 42.96 ml EF | | | Biplane: 59.65 % LVEDV MOD BP: 80.09 ml LVESV MOD BP: 32.31 | | | ml LVEDV MOD A2C: 74.22 ml LVLd A2C: 7.12 cm LVEDV MOD A4C: | | | 77.05 ml LVLd A4C: 8.06 cm LVESV MOD A2C: 29.46 ml LVLs | | | A2C: 6.21 cm LVESV MOD A4C: 34.08 ml LVLs A4C: 6.52 cm | | | LAESV(A-L): 26.20 ml LAESV Index (A-L): 16.48 ml/m2 LAAs A2C: | | | 10.53 cm2 LAESV A-L A2C: 27.12 ml LALs A2C: 3.47 cm LAAs | | | A4C: 10.17 cm2 LAESV A-L A4C: 24.37 ml LALs A4C: 3.60 cm | | | RAAs: 10.58 cm2 RAESV A-L: 25.15 ml RAESV MOD: 22.52 ml | | | RALs: 3.77 cm TAPSE: 1.95 cm RAP: 5 mmHg RVSP: 23.53 | | | mmHg TR maxP.53 mmHg TR Vmax: 2.15 m/s RV s': 0.08 | | | m/s Floor Worker: DBS Authenticated by: Maria Isabel Junior MD Report | | | Date/Time: -- [id number] | | + + + + + | Procedure Note | + + | Bertrand Muniz Conversion - 05/06/2019 9:35 AM PDT Patient Name: Georgia LEUNG of | | : 1945 Performing Physician: Maria Isabel Junior | | MD INDICATIONS H | | X UT CONCLUSIONS 1. Overall left ventricular systolic function is normal with, | | an EF between 60 - 65 %.2. No regional wall motion abnormalities.3. The right ventricle | | is normal in size and function.4. Itve-gp-vxzlicqn mitral regurgitation is present. | | FINDINGS--------ECG rhythm: Sinus rhythm.Study: A 2-dimensional transthoracic | | echocardiogram with m-mode, spectral and color flow Doppler was perfomed.Study: This was | | a technically adequate study.Left Ventricle: Overall left ventricular systolic function | | is normal with, an EF between 60 - 65 %.Left Ventricle: The left ventricle cavity size | | is normal.Left Ventricle: Left ventricular wall thickness is normal.Left Ventricle: No | | regional wall motion abnormalities.Left Ventricle: The diastolic filling pattern is | | normal for the age of the patient.Right Ventricle: The right ventricle is normal in size | | and function.Left Atrium: The left atrium is normal in size.Right Atrium: The right | | atrium is normal in size.Aortic Valve: The aortic valve is trileaflet.Aortic Valve: | | There is no evidence of aortic regurgitation.Aortic Valve: The aortic valve is mildly | | calcified.Aortic Valve: There is no evidence of aortic stenosis.Mitral Valve: | | Qmnt-sb-dhideqpa mitral regurgitation is present.Mitral Valve: Mild mitral annular | | calcification present.Tricuspid Valve: The tricuspid valve appears structurally | | normal.Tricuspid Valve: Mild tricuspid regurgitation present.Tricuspid Valve: The right | | ventricular systolic pressure (pulmonary artery systolic pressure), as measured by | | Doppler, is 23.54mmHg.Pulmonic Valve: The pulmonic valve was not well | | visualized.Pulmonic Valve: Trace pulmonic regurgitation.Pericardium: There is no | | pericardial effusion.IVC/Hepatic Veins: The inferior vena cava is normal in size and | | collapses > 50 % with sniff, indicating normal central venous pressures.Aorta: The | | aortic root, ascending aorta and aortic arch are normal.Mass: No mass | | visualizedThrombus: No clot visualizedThrombus: No vegetation visualized.Septum: No ASD | | observed.Septum: No VSD observed. MEASUREMENTS Ao asc: 2.95 cmAo sinus: | | 3.[address] junct: 2.67 cmIVC: 2.01 cmEDV(Teich): 57.15 mlIVSd: 0.79 cmLVIDd: | | 3.67 cmLVPWd: 0.77 cmLVOT Area: 2.84 [id number] Diam: 1.90 cm%FS: 39.58 | | %EF(Teich): 71.00 %ESV(Teich): 16.57 mlLVIDs: 2.21 cmSV(Teich): 40.58 mlRV | | Major: 5.99 cmRV Minor: 2.36 cmLVEF MOD A2C: 60.30 %SV MOD A2C: 44.76 mlLVEF MOD | | A4C: 55.76 %SV MOD A4C: 42.96 mlEF Biplane: 59.65 %LVEDV MOD BP: 80.09 mlLVESV | | MOD BP: 32.31 mlLVEDV MOD A2C: 74.22 mlLVLd A2C: 7.12 cmLVEDV MOD A4C: 77.05 | | mlLVLd A4C: 8.06 cmLVESV MOD A2C: 29.46 mlLVLs A2C: 6.21 cmLVESV MOD A4C: 34.08 | | mlLVLs A4C: 6.52 cmLAESV(A-L): 26.20 mlLAESV Index (A-L): 16.48 ml/m2LAAs A2C: | | 10.53 gb2EXBOG A-L A2C: 27.12 mlLALs A2C: 3.47 cmLAAs A4C: 10.17 wt2QVBPL A-L A4C: | | 24.37 mlLALs A4C: 3.60 cmRAAs: 10.58 hu6KHTBJ A-L: 25.15 mlRAESV MOD: 22.52 | | mlRALs: 3.77 cmTAPSE: 1.95 cmRAP: 5 mmHgRVSP: 23.53 mmHgTR maxP.53 mmHgTR | | Vmax: 2.15 m/sRV s': 0.08 m/s Floor Worker: DBSAuthenticated by: Maria Isabel Junior | | MDReport Date/Time: -- [id number] IMPRESSION: 1. Overall left ventricular | | systolic function is normal with, an EF between 60 - 65 %.2. No regional wall motion | | abnormalities.3. The right ventricle is normal in size and function.4. Xowl-bu-sufhnvhp | | mitral regurgitation is present. | |IVC/Hepatic Veins: The inferior vena cava is normal in size and collapses > 50 % with sniff , indicating normal central venous pressures. | |Aorta: The aortic root, ascending aorta and aortic arch are normal. | |Mass: No mass visualized | |Thrombus: No clot visualized | |Thrombus: No vegetation visualized. | |Septum: No ASD observed. | |Septum: No VSD observed. | | | |MEASUREMENTS | | | |Ao asc: 2.95 cm | |Ao sinus: 3.21 cm | |Ao st junct: 2.67 cm | |IVC: 2.01 cm | |EDV(Teich): 57.15 ml | |IVSd: 0.79 cm | |LVIDd: 3.67 cm | |LVPWd: 0.77 cm | |LVOT Area: 2.84 cm2 | |LVOT Diam: 1.90 cm | |%FS: 39.58 % | |EF(Teich): 71.00 % | |ESV(Teich): 16.57 ml | |LVIDs: 2.21 cm | |SV(Teich): 40.58 ml | |RV Major: 5.99 cm | |RV Minor: 2.36 cm | |LVEF MOD A2C: 60.30 % | |SV MOD A2C: 44.76 ml | |LVEF MOD A4C: 55.76 % | |SV MOD A4C: 42.96 ml | |EF Biplane: 59.65 % | |LVEDV MOD BP: 80.09 ml | |LVESV MOD BP: 32.31 ml | |LVEDV MOD A2C: 74.22 ml | |LVLd A2C: 7.12 cm | |LVEDV MOD A4C: 77.05 ml | |LVLd A4C: 8.06 cm | |LVESV MOD A2C: 29.46 ml | |LVLs A2C: 6.21 cm | |LVESV MOD A4C: 34.08 ml | |LVLs A4C: 6.52 cm | |LAESV(A-L): 26.20 ml | |LAESV Index (A-L): 16.48 ml/m2 | |LAAs A2C: 10.53 cm2 | |LAESV A-L A2C: 27.12 ml | |LALs A2C: 3.47 cm | |LAAs A4C: 10.17 cm2 | |LAESV A-L A4C: 24.37 ml | |LALs A4C: 3.60 cm | |RAAs: 10.58 cm2 | |RAESV A-L: 25.15 ml | |RAESV MOD: 22.52 ml | |RALs: 3.77 cm | |TAPSE: 1.95 cm | |RAP: 5 mmHg | |RVSP: 23.53 mmHg | |TR maxP.53 mmHg | |TR Vmax: 2.15 m/s | |RV s': 0.08 m/s | | | |Floor Worker: DBS | |Authenticated by: Maria Isabel Junior MD | |Report Date/Time: -- [id number] | | | |IMPRESSION: | |1. Overall left ventricular systolic function is normal with, an EF between 60 - 65 %. | |2. No regional wall motion abnormalities. | |3. The right ventricle is normal in size and function. | |4. Iiog-km-gytrezxy mitral regurgitation is present. | + + documented in this encounter Visit Diagnoses Not on filedocumented in this encounter"
--- OUTSIDE RECORDS SUMMARY | ~2020-05-21 | XMS | Encounter Summary ---
Demographics + + + | Address | [address] | | | [place] [address] | + + + | Home Phone | | + + + | Preferred Language | Unknown | + + + | Marital Status | Single | + + + | Baptism Affiliation | CAT | + + + [...] Team Providers + +------+ + | Care Automotive Glass Mechanic Name | Role | Phone | + +------+ + | Juan Dong MD | PCP | | + +------+ + Encounter Details +--------+ + + + + | Date | Type | Department | Care Team | Description | +--------+ + + + + | 07/13/ | Telephone | Otolaryngology | Rosalind Wu, | | | 2016 | | Thyroid Services at | [address] | | | | | [address] | | | | | [address] | [facility] [place] | | | | | Physician's | [address] | | | | | [place], 2nd floor | [phone] | | | | | [place], [place] | | | | | | [address] | | | | | | [phone] | | | +--------+ + + + [...] Telephone Encounter - Gila Bello LPN - 07/22/2017 9:06 AM PSTSpoke with patient, she explains she is feeling good and her incision is a lot less swollen than the appearance of t he photo she sent us. She stated a verbal understanding and had no additional questions or c oncerns. elephone Enc Gila Coreas LPN - 07/14/2017 10:32 AM PSTSpoke with [facility], only ionized Ca drawn. Specimen was sent out and results pending. Electronically eula d by Gila Bello LPN at 07/14/2017 10:44 AM PSTTelephone Encounter - Erendira Murillo - 07/01 10:56 AM PSTReceived incision photo: elephone Encounter - Erendira Perry - 07/13/2017 10:41 AM PSTPatient called back to report that [facility] informed her that it would take them 3-5 days to result the ionized calcium since they need to send it to an outside lab. However, they did draw extra blood to run a normal calcium whi ch they will send to [facility]. Patient states that after taking the extra dose of TUMs, she felt a little better. Since patient does not need to come back for a post-op appointment in the clinic, she will be emailing me post-op pictures, so we can review.Electronically signed by Erendira Murillo at 1 09/12/2016 10:43 AM PSTTelephone Encounter - Gila Bello LPN - 07/13/2017 9:15 AM PSTSpo geraldine with patient, she explains she was contacted by [facility] follow up call nurse today. They discu ssed that she has had muscle cramping in her legs since she arrived in the recovery room af ter surgery. She currently takes 1 TUMS tablet twice a day. Patient denies any tingling arou nd her face or extremities but overall "just doesn't feel great" today. Patient has external lab orders and will go to local hospital lab [facility] in [facility]. If symptoms advanc e patient will call us. Patient will take an extra dose of TUMs. documented in this encounter Plan of Treatment Not on filedocumented as of this encounter Visit Diagnoses Not on filedocumented in this encounter
== END 2020-05-21 17:16 | disposition home or self-care (01) ==
LOC: ED 14:24
DX: G43.909 Migraine, unspecified, not intractable, without status migrainosus (principal); E87.1 Hypo-osmolality and hyponatremia; E11.9 Type 2 diabetes mellitus without complications; K21.9 Gastro-esophageal reflux disease without esophagitis; Z88.5 Allergy status to narcotic agent; Z88.8 Allergy status to other drugs, medicaments and biological substances; Z79.899 Other long term (current) drug therapy
CPT/HCPCS: 80048; 85025; 96361; 96374; 96375; 99284-25; J0780; J1100; J1200; J7030

== ENCOUNTER 2021-03-23 00:43 | Inpatient (IN) | payer MEDICARE, OTHER ==
[~2021-03-23] VITALS: Ht 167.6 cm; Wt 53.0 kg
[~2021-03-23 00:43] MED LIST changes: +CO Q-10100 MG PO; -MULTI COMPLETE1 EACH PO; -VITAMIN D2000 UNI1 PO; +VITAMIN D350 MC3 PO
[2021-03-23] MEDS ORDERED: PANTOPRAZOLE SO40 MG PO (01:11)
[2021-03-23] MEDS ORDERED: LATANOPROST2.5 ML OU (01:12)
[2021-03-24] MEDS ORDERED: IMITREX100 MG PO (10:55)
[2021-03-24] MEDS ORDERED: VITAMIN C250 M1 PO (12:19)
[2021-03-26] MEDS ORDERED: SODIUM CHLORIDE1 GM PO (13:54)
== END 2021-03-26 15:06 | disposition home or self-care (01) | DRG 645 ==
LOC: ED 00:43 → CCU 00:45
PROVIDERS: ADMIT Internal Medicine; ATTEND Internal Medicine
DX: E22.2 Syndrome of inappropriate secretion of antidiuretic hormone (principal); E11.9 Type 2 diabetes mellitus without complications; Z20.822 Contact with and (suspected) exposure to COVID-19; K21.9 Gastro-esophageal reflux disease without esophagitis; E80.6 Other disorders of bilirubin metabolism; Z98.890 Other specified postprocedural states; Z88.5 Allergy status to narcotic agent; Z88.8 Allergy status to other drugs, medicaments and biological substances; Z79.899 Other long term (current) drug therapy
CPT/HCPCS: 74177; 80048; 80053; 81001; 82248; 83690; 84295; 84550; 85025; 96375; 99285-25; C9803; G0378; J1650; J2405; J2550; J7030; J7040; J7070; J7131; Q9967; U0003

== ENCOUNTER 2021-04-13 08:55 | Emergency (ER) | payer MEDICARE, OTHER ==
[~2021-04-13] VITALS: Ht 167.6 cm; Wt 52.6 kg
[~2021-04-13 08:55] MED LIST changes: +IMITREX100 MG PO; +LATANOPROST2.5 ML OU; +PANTOPRAZOLE SO40 MG PO; +SODIUM CHLORIDE1 GM PO; +VITAMIN C250 M1 PO
--- OUTSIDE RECORDS SUMMARY | 2021-04-13 09:02 | XMS ---
PreManage Notification: PASTORA TREJO Security Director Of Financial Aid Events No recent Security Events currently on file CRITERIA MET - [facility] - 2 Visits in 30 Days CARE PROVIDERS There are no care providers on record at this time. Bakari has no Care Guidelines for this patient. Faby VISIT COUNT (12 MO.) 3 [facility] TOTAL 3 NOTE: Visits indicate total known visits. ED/C VISIT TRACKING (12 MO.) 04/13/2021 08:[facility] [place] TYPE: Emergency COMPLAINT: - WEAKNESS, NAUSEA 03/23/2021 00:44 [facility] [place] TYPE: Emergency COMPLAINT: - VOMITING 05/21/2020 14:26 [facility] [place] TYPE: Emergency COMPLAINT: - HEADACHE DIAGNOSES: - Allergy status to other drugs, medicaments and biological substances - Allergy status to narcotic agent - Hypo-osmolality and hyponatremia - Headache - Type 2 diabetes mellitus without complications - Gastro-esophageal reflux disease without esophagitis - Other long-term (current) drug therapy - Migraine, unspecified, not intractable, without status migrainosus INPATIENT VISIT TRACKING (12 MO.) 03/23/2021 09:22 [facility] [place] TYPE: Critical Care COMPLAINT: - HYPONATHREMIA DIAGNOSES: - Other long-term (current) drug therapy - Gastro-esophageal reflux disease without esophagitis - Type 2 diabetes mellitus without complications - Hypo-osmolality and hyponatremia - Allergy status to other drugs, medicaments and biological substances - Other specified postprocedural states - Syndrome of inappropriate secretion of antidiuretic hormone - Other disorders of bilirubin metabolism - Allergy status to narcotic agent [email or web address]
[2021-04-13] MEDS ORDERED: ONDANSETRON ODT4 MG PO (19:48)
== END 2021-04-13 14:30 | disposition home or self-care (01) ==
LOC: ED 08:55
DX: E22.2 Syndrome of inappropriate secretion of antidiuretic hormone (principal); K21.9 Gastro-esophageal reflux disease without esophagitis; E11.9 Type 2 diabetes mellitus without complications; Z88.5 Allergy status to narcotic agent; Z88.8 Allergy status to other drugs, medicaments and biological substances; Z79.899 Other long term (current) drug therapy
CPT/HCPCS: 80053; 81001; 85025; 99283; J7030; J7131

== ENCOUNTER 2021-04-15 06:10 | Observation (INO) | payer MEDICARE, OTHER ==
[~2021-04-15] VITALS: Ht 167.6 cm; Wt 53.0 kg
[~2021-04-15 06:10] MED LIST changes: +ONDANSETRON ODT4 MG PO
--- OUTSIDE RECORDS SUMMARY | 2021-04-15 06:18 | XMS ---
PreManage Notification: PASTORA TREJO Security Corporate Executive Events No recent Security Events currently on file CRITERIA MET - [facility] - 2 Visits in 30 Days CARE PROVIDERS There are no care providers on record at this time. Bakari has no Care Guidelines for this patient. Faby VISIT COUNT (12 MO.) 5 [facility] [place] [facility] TOTAL 5 NOTE: Visits indicate total known visits. ED/C VISIT TRACKING (12 MO.) 04/15/2021 06:[address] [facility] [place] TYPE: Emergency COMPLAINT: - WEAKNESS, FLU SYMPTOMS 04/13/2021 18:34 [facility] [place] [facility] [place] COMPLAINT: - VOMITING 04/13/2021 08:56 [facility] [place] COMPLAINT: - WEAKNESS, NAUSEA 03/23/2021 00:44 [facility] [place] [facility] [place] TYPE: Emergency COMPLAINT: - VOMITING 05/21/2020 14:26 [facility] [place] [facility] [place] COMPLAINT: - HEADACHE DIAGNOSES: - Allergy status to other drugs, medicaments and biological substances - Allergy status to narcotic agent - Hypo-osmolality and hyponatremia - Headache - Type 2 diabetes mellitus without complications - Gastro-esophageal reflux disease without esophagitis - 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 - Migraine, unspecified, not intractable, without status migrainosus INPATIENT VISIT TRACKING (12 MO.) 03/23/2021 09:22 [facility] [place] TYPE: Critical Care COMPLAINT: - HYPONATHREMIA DIAGNOSES: - Other alf (current) drug therapy - Gastro-esophageal reflux disease without esophagitis - Type 2 diabetes mellitus without complications - Hypo-osmolality and hyponatremia - Allergy status to other drugs, medicaments and biological substances - Other specified postprocedural states - Syndrome of inappropriate secretion of antidiuretic hormone - Other disorders of bilirubin metabolism - Allergy status to narcotic agent [email or web address]
--- NOTE | 2021-04-15 12:12 | NUR ---
New admit to the floor from ER. Patient a&ox4, vital signs stable at this time. Oriented patient to room and call light. IV fluids started per provider order. Admin suppository per provider order; pt tolerated well. Patient would like soap chencho enema after suppository if she has no results. Told patient we will await results from her suppository at this time. Call light within reach. No current needs.
--- NOTE | 2021-04-15 13:30 | NUR ---
Patient resting in bed, eyes closed, respirations even and non labored. Patient has no distress. Vital signs stable, afebrile. Continuous irrigation infusing; velazquez patent-pink urine noted. Patient has no distress. Personal supplies and call light within reach.
--- NOTE | 2021-04-15 13:48 | NUR ---
PATIENT BACK TO BED FROM BATHROOM, IND. BROTH GIVEN. VITALS AND I&O'S CHARTED. CALL LIGHT IN REACH. NO FURTHER NEEDS AT THIS TIME.
--- NOTE | 2021-04-15 14:00 | NUR ---
Second soap chencho enema admin per provider order as patient had no relief from the first emema. Patient tolerated 250ml of soap chencho/room temp water. Patient provided with call light and instructed to notify staff when she can no longer retain fluid. Patient has no distress at this time and agrees to call when she is in need of assistance.
--- NOTE | 2021-04-15 14:46 | NUR ---
Notified by GUALBERTO Hylton that pt had requested Pastoral Care. Pt awake and appeared to be in a positive state of mind. Expressed confidence that cause of illness would be determined. Prayed for wisdom and skill for medical team and patience and healing for pt.
--- NOTE | 2021-04-15 16:42 | EKG ---
[facility] [address] [facility] [place] [address] Signed Normal sinus rhythm Low voltage QRS Borderline ECG When compared with ECG of 13-FEB-2019 04:12, Criteria for Septal infarct are no longer present Confirmed by STEFFANIE WICK MD ([id number]) on 04/15/2021 4:41:50 PM Electronically Signed By: STEFFANIE WICK MD 04/15/21 1642 PATIENT NAME: PASTORA TREJO Electrocardiogram DATE OF : 47 PHYSICIAN: STEFFANIE WICK MD REPORT #: [id number] REPORT IS CONFIDENTIAL AND NOT TO BE RELEASED WITHOUT AUTHORIZATION
--- NOTE | 2021-04-15 16:46 | NUR ---
Patient had a small BM. Its classified as formed. Stacia care and hand hygiene was done. Patient was a standby assist from the bathroom to the bed. She is resting. Call light is in reach and there are no further requests at this time.
--- NOTE | 2021-04-15 18:11 | NUR ---
PATIENT BACK TO BED FROM BATHROOM, IND. VITALS AND I&O'S CHARTED. FRESH ICE CHIPS GIVEN. CALL LIGHT IN REACH. NO FURTHER NEEDS AT THIS TIME.
--- NOTE | 2021-04-15 19:30 | NUR ---
VORB to change Protonix 40mg IV from daily to BID.
--- NOTE | 2021-04-15 19:36 | NUR ---
REPORT RECEIVED FROM DAY SHIFT RN. PT LYING IN BED ALERT AND ORIENTED. IVF INFUSING WNL. DENIES NEEDS AT THIS TIME. WHITE BOARD UPDATED. CALL LIGHT IN REACH.
--- NOTE | 2021-04-15 19:55 | NUR ---
ACCOMPANIED PATIENT AMBULATES AROUND NURSES' STATION X1.
--- NOTE | 2021-04-15 20:50 | NUR ---
EVENING ASSESSMENT COMPLETE. PT DENIES NAUSEA. REPORTS "REFLUX". SCHEDULED MEDS ADMINISTERED PER EMAR. PRN FOR PAIN GIVEN FOR 2/10 HEADACHE. VS WNL. UP TO BR WITH SBA TO VOID. GAIT STEADY. BACK TO BED, AMINA WELL. IVF INFUSING WNL. PT DENIES QUESTIONS OR CONCERNS. CALL LIGHT IN REACH.
--- NOTE | 2021-04-15 21:42 | NUR ---
PT CALLED, IV ALARMING ABX COMPLETE. FLUSHED, REQUESTED AND RECEIVED WARM WASH CLOTH. NO OTHER NEEDS.
--- NOTE | 2021-04-15 23:15 | NUR ---
CALL LIGHT ANSWERED. PT REPORTS SHE WOKE UP DIAPHORETIC WITH INCREASED NECK/BACK OF HEAD PAIN, NAUSEA, AND TINGLING IN BILAT FEET. PT ALSO REPORTS TINGLING IN BILAT FEET HAPPENS OCCASIONALLY SINCE HAVING BACK SURGERY AND NECK PAIN IS CHRONIC SINCE A FALL SEVERAL MONTHS AGO AT HOME. PT NOTED TO BE SHAKY AND ALTERNATING BETWEEN HOT AND COLD. VS AND BLOOD SUGAR WNL. NEURO ASSESSMENT WNL. DR. WICK ON UNIT AND UPDATED. NEW ORDERS RECEIVED FOR PAIN CONTROL. PRN FOR NAUSEA AND PAIN ADMINISTERED PER EMAR. PT UP TO BSC WITH SBA TO VOID. DENIES FEELING DIZZY OR LIGHTHEADED. GAIT STEADY. BACK TO BED, AMINA WELL. 2330: PT REPORTS SX RESOLVED. WARM BLANKET PROVIDED. FLOAT RN IN TO START NEW PIV. PT DENIES FURTHER NEEDS. CALL CLARKE IN REACH.
--- NOTE | 2021-04-16 00:22 | NUR ---
PT AWAKE SITTING UP IN BED. REPORTS FEELING BETTER. PT DENIES NAUSEA, TINGLINGIN IN FEET, OR DIAPHORESIS. REPORTS NECK PAIN MUCH IMPROVED. JELLO PROVIDED. NO FURTHER NEEDS.
--- NOTE | 2021-04-16 02:58 | NUR ---
VS AND I&O COMPLETE. PT REPORTS SHE IS RESTING WELL. DENIES PAIN OR NAUSEA AT THIS TIME. UP TO BSC TO VOID 200 ML CLEAR YELLOW URINE WITH SBA. GAIT STEADY. BACK TO BED, AMINA WELL. DENIES FURTHER NEEDS. CALL LIGHT IN REACH.
--- NOTE | 2021-04-16 06:46 | NUR ---
PT DENIES PAIN OR NAUSEA. UP TO BR TO VOID WITH MINIMAL SBA. GAIT STEADY. BACK TO BED, AMINA WELL. PIV IN RIGHT FOREARM DC'D WNL. TIP INTACT. CLEAR LIQUIDS PROVIDED. NO FURTHER NEEDS AT THIS TIME. CALL LIGHT IN REACH.
--- NOTE | 2021-04-16 07:30 | NUR ---
PATIENT SITTING UP IN BED. PATIENT REFUSED TO GET UP TO CHAIR SHE IS FEELING NAUSEOUS, RN AWARE. CALL LIGHT IN REACH. NO FURTHER NEEDS AT THIS TIME.
--- NOTE | 2021-04-16 08:04 | NUR ---
pt off the unit to xray at this time. pt reports she does not feel well this am, she ate jello at 0630 and "feels like it could come back up" per her report. she is belching frequently, no emesis, she agreed to take tylenol for cunningham 02/07, but refused bowel medications at this time. she said she might take later. she ambulated to bathroom with standby assist to void. necklace taken off left on side table in denture cup for xray.
--- NOTE | 2021-04-16 08:15 | NUR ---
PT RESTING IN BED PRONE POSITION, NO DISTRESS NOTED. PT 97% OXYGEN SATURATION ON 3.5L OXYGEN, BREAKFAST ORDER TAKEN. PT REPORTS NO OTHER NEEDS, RN VERBALIZES I WILL BE IN SOON WITH AM MEDICATIONS AND BREAKFAST.
--- NOTE | 2021-04-16 08:45 | NUR ---
INTO PT ROOM PT SITTING UP IN BED ALERT AND ORIENTED. BREAFFAST SET UP AT SIDE TABLE. HE REPORTS HE DOES NOT HAVE HIS DENTURES, OMELETTE AND YOGURT FOR BREAKFAST. HE REPORTS HE HAS GOOD APPETITE. PT SWITCHED TO N.C. FROM OXYMASK TO EAT BREAKFAST. PT DESATURATED TO 88% ON 3.5L N.C. INCREASED TO 5L N.C. 92% OXYGEN SATURATION NOW WHILE EATING. PT REPORTS HIS NOSE IS STUFFY/CONGESTED AND HAS TROUBLE BREATHING THROUGH HIS NOSE.
--- NOTE | 2021-04-16 09:48 | NUR ---
PATIENT AMBULATED IN HALLWAY EARLIER, IND. PATIENT NOW IN BED. RN IN ROOM AT THIS TIME. VITALS AND I&O'S CHARTED. CALL LIGHT IN REACH. NO FURTHER NEEDS AT THIS TIME.
--- NOTE | 2021-04-16 10:13 | NUR ---
pt up to bedside commode after fleet enema placed. she had nausea after oral bowel medications given, zofran 4mg iv given. she had medium bowel movement, formed round shaped stool.
--- NOTE | 2021-04-16 10:20 | NUR ---
Spoke with Joselyn and she states she has been very ill. Did not tolerate enemas and has been vomiting since. Pt lives in a 2 story home and uses both floors. Rails are in place. Adonay Oconnell is her SO and has stayed last few days as she has been vomiting. Pt complains several times about her nausea and vomiting. Kitchen arrives to assist with meal order, pt ordered a fruit plate, ham sandwich, steame broccoli, and gurwinder food cake with strawberrys. I asked if her nausea is better and she denies. Pt plans on going home on discharge and SO will assist her as needed. Dr. Stewart updated.
--- NOTE | 2021-04-16 10:30 | NUR ---
PT UP AMBULATING IN HALLS, TOLERATING ACTIVITY WELL.
--- NOTE | 2021-04-16 11:55 | NUR ---
PT RESTING IN BED NO DISTRESS NOTED. SHE HAS NO NAUSEA AT THIS TIME. SHE REPORTS SHE HAS ORDERED LUNCH AND IS LOOKING FORWARD TO IT. EDUCATION ABOUT EATING SLOW AND SMALL AMOUNTS TO START, TO AVOID NAUSEA. PT AGREES TO EATING SLOW AND SMALL AMOUNTS.
--- NOTE | 2021-04-16 13:52 | NUR ---
PATIENT HAS BEEN AMBLATING IN [facility] IND. PATIENT NOW IN BED RESTING, RN IN ROOM. VITALS AND I&O'S CHARTED. CALL LIGHT IN REACH. NO FURTHER NEEDS AT THIS TIME.
--- NOTE | 2021-04-16 14:31 | NUR ---
PT WAS ABLE TO CONSUME 25% OF LUNCH WITH NO EMESIS. PT TOLERATED WELL. PT HAS MANY QUESTIONS IN REGARDS TO HER CARE SUCH "WILL I GET MORE IV SODIUM?" "IS THE DRCullen GOING TO ORDER ANOTHER XRAY?" "WILL LABS BE DRAWN AGAIN TODAY?", "WILL THERE BE MORE ENEMAS TODAY?" ALL QUESTIONS ANSWERED PER CARE PLAN, XRAY DONE TODAY, LABS DONE TODAY, PLANS TO HELP YOU TO MOVE THE STOOL OUT OF BOWELS THEN START BACK ON ORAL SODIUM TABS AGAIN, WILL MONITOR FOR NOW MAYBE MORE ENEMAS LATER TODAY IF NO MORE PROGRESS, MAY ORDER ANOTHER XRAY TOMORROW IF NO MORE PROGRESS TODAY WELL LABS. PT SATISFIED AT THIS TIME.
--- NOTE | 2021-04-16 16:07 | NUR ---
FLEETS ENEMA ADMINISTERED AT THIS TIME. PT TOLERATED WELL. SHE IS GOING TO HOLD IN LIQUID LONG SHE CAN TOLERATE.
--- NOTE | 2021-04-16 16:30 | NUR ---
PT CALLED TO REPORT SHE WAS FINISHED ON THE COMMODE. RN INTO CHECK COMMODE, PT HAD MEDIUM BM, ROUND FORMED STOOL.
--- NOTE | 2021-04-16 18:14 | NUR ---
PT HAS HAD TWO FLEETS ENEMAS, BM X3 TODAY, HAS BEEN TOLERATING SMALL AMOUNTS OF REGULAR DIET. SHE HAS BEEN WALKING REGULARLY IN HALLS. SHE HAS BEEN COOPERATIVE WITH CARE. SHE IS VERY INVOLVED IN HER CARE, INTEREST IN HER CARE PLAN NOW AND GOING FORWARD. BOWEL TONE VERY MUCH ACTIVE. XRAY THIS AM SHOWS STOOL HAS MOVED DOWN IN HER COLON AND AIR POCKET HAS RESOLVED.
--- NOTE | 2021-04-16 19:32 | NUR ---
REPORT RECEIVED FROM DAY SHIFT RN. PT LYING IN BED ALERT AND ORIENTED. DENIES NEEDS AT THIS TIME. WHITE BOARD UPDATED. CALL LIGHT IN REACH.
--- NOTE | 2021-04-16 21:00 | NUR ---
EVENING ASSESMENT COMPLETE. BOWEL TONES ACTIVE. ABD SOFT AND NON DISTENDED. PT HAD SMALL SOFT BM THIS EVENING. SCHEDULED MEDS ADMINISTERED PER EMAR. PT WITH ANXIETY RELATED TO TAKING STOOL SOFTENERS AND SODIUM CHLORIDE TABLETS DUE TO PREVIOUS EXPERIENCES AND N/V. EDUCATION PROVIDED. ASSURED PT MEDS ARE AVAILABLE TO RELIEVE N/V IF NECESSARY. PT AGREED TO TAKE 1 OF 2 STOOL SOFTENER AND SODIUM TAB WITH APPLESAUCE. AMINA WELL. FRESH WATER AND ICE CHIPS PROVIDED. TOOTHBRUSH AND WARM CLOTH PROVIDED. PT DENIES FURTHER NEEDS. CALL LIGHT IN REACH.
--- NOTE | 2021-04-16 22:28 | NUR ---
PT AWAKE IN BED READING. DENIES NAUSEA AT THIS TIME. REASSURED NAUSEA MED WOULD BE AVAILABLE AT THIS TIME. DENIES NEEDS. CALL LIGHT IN REACH.
--- NOTE | 2021-04-17 00:48 | NUR ---
PT CALLED, REQUESTED AND RECEIVED A WARM BLANKET. UP TO VOID, BACK TO BED, COVERS STRAIGHTENED UP, NO OTHER NEEDS AT THIS TIME.
--- NOTE | 2021-04-17 02:42 | NUR ---
PT RESTING IN BED ON RIGHT SIDE. RESPIRATIONS EVEN. NO APPARENT DISTRESS.
--- NOTE | 2021-04-17 05:21 | NUR ---
CALL LIGHT ANSWERED. PT COLD, WARM BLANKET PROVIDED. PT DENIES PAIN OR NAUSEA. VS AND I&O COMPLETE. FRESH ICE CHIPS AND WATER PROVIDED. NO FURTHER NEEDS AT THIS TIME. CALL LIGHT IN REACH.
--- NOTE | 2021-04-17 06:48 | NUR ---
PT REPORTS HAVING PHLEGM/MUCUS IN THROAT AND FEELING NAUSEOUS. OFFERED PRN FOR NAUSEA. PT WISHES TO AMB IN [place] TO "TRY TO GET PAST IT". PT TO [place] AMB INDEPENDENTLY. GAIT STEADY.
--- NOTE | 2021-04-17 07:00 | NUR ---
REPORT RECEIVED. PT AMBULATING IN HALLS INDEPENDENTLY. YAYAO PROVIDED FOR SOME HUNGER PAINS ONCE BACK IN ROOM. CALL LIGHT IN REACH
--- NOTE | 2021-04-17 07:35 | NUR ---
PATIENT RESTING IN BED. SHE REQUESTED MEDICATION FOR HER NAUSEOUSNESS. I NOTIFIED NURSE MAGGIE. PATIENT DOES NOT NEED ANYTHING ELSE AT THIS TIME. CALL LIGHT IN REACH.
--- NOTE | 2021-04-17 08:03 | NUR ---
PT CALLS REPORTING NAUSEA. IV PROTONIX AND ZOFRAN ADMINISTERED. PT LYING IN BED WITH LIGHTS OFF. WILL CONTINUE TO MONITOR.
--- NOTE | 2021-04-17 09:15 | NUR ---
Plan to dc today per Dr. Stewart in 829 meeting. NO change in plan for dc.
--- NOTE | 2021-04-17 09:30 | NUR ---
[place] RAS[facility] ROUNDED PLAN TO DISCHARE AND FOLLOW UP WITH PCP. ASSESSMENT COMPLETED. PT DENEIS PAIN. NAUSEA HAS IMPROVED. PT ATE 75% OF BREAKFAST. LUNGS ARE CLEAR. BOWEL TONES ACTIVE. IV DC'D AND WNL.
--- NOTE | 2021-04-17 09:50 | NUR ---
It was my pleasure to visit with Joselyn this morning regarding her care while she was here in the hospital. Joselyn feels like her treatment and care "went well" both in the emergency department and here on the medical floor. Joselyn feels like the nurses have done a good job explaining her medications to her, and she understands her treatment plan. She is anxious to follow-up with her PCP on discharge for continuation of clarification regarding her medications and a treatment plan that will prevent re-occuring admissions into the hospital. I assured Joselyn that we would make a follow-up appt with her for her PCP prior to discharge, and I verified that this was done prior to leaving the department. Joselyn felt that the staff had been helpful, and she verbalized that she does have help when she gets home and she does not express concern regarding her care at home, or her ability to aquire medications, attend Dr. ulloa, etc. Pharmacy had been in the room prior to me, and had explained Joselyn's home medications to her. No further questions or concerns were expressed to me by Joselyn during this visit.
--- NOTE | 2021-04-17 10:20 | NUR ---
PT's nurse reported that PT was feeling anxious and would most likely like a visit. Had a nice visit with PT talking about the weather and gardening. She accepted my offer for prayer and asked for prayers for healing and for them to figure out what is causing her issues. We prayed together and PT thanked me for praying with her and for the visit.
== END 2021-04-17 10:30 | disposition home or self-care (01) ==
LOC: ED 06:10 → MS 09:56
PROVIDERS: ADMIT Internal Medicine; ATTEND Internal Medicine
DX: E22.2 Syndrome of inappropriate secretion of antidiuretic hormone (principal); K21.9 Gastro-esophageal reflux disease without esophagitis; K59.00 Constipation, unspecified; R73.03 Prediabetes; E89.0 Postprocedural hypothyroidism; Z88.5 Allergy status to narcotic agent; Z88.8 Allergy status to other drugs, medicaments and biological substances; Z79.899 Other long term (current) drug therapy; Z20.822 Contact with and (suspected) exposure to COVID-19
CPT/HCPCS: 74022; 80048; 80053; 81001; 83735; 84100; 85025; 93005; 93010; 96374; 96375; 96376; C9113; C9803; G0378; J2405; J7131; U0003

== ENCOUNTER 2021-04-27 21:44 | Observation (INO) | payer MEDICARE, OTHER ==
[~2021-04-27] VITALS: Ht 167.6 cm; Wt 50.0 kg
--- OUTSIDE RECORDS SUMMARY | 2021-04-27 21:52 | XMS ---
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 Faby VISIT COUNT (12 MO.) 6 [facility] TOTAL 6 NOTE: Visits indicate total known visits. ED/UCC VISIT TRACKING (12 MO.) 04/27/2021 21:45 [facility] [place] TYPE: Emergency COMPLAINT: - NAUSEA,HEADACHE 04/15/2021 06:11 [facility] [place] TYPE: Emergency COMPLAINT: - WEAKNESS, FLU SYMPTOMS 04/13/2021 18:34 [facility] [place] TYPE: Emergency COMPLAINT: - VOMITING DIAGNOSES: - Other intermediate designer (current) drug therapy - Syndrome of inappropriate secretion of antidiuretic hormone - Allergy status to narcotic agent - Allergy status to other drugs, medicaments and biological substances - Nausea with vomiting, unspecified - Type 2 diabetes mellitus without complications - Gastro-esophageal reflux disease without esophagitis 04/13/2021 08:56 [facility] [place] TYPE: Emergency COMPLAINT: - WEAKNESS, NAUSEA DIAGNOSES: - Allergy status to narcotic agent - Type 2 diabetes mellitus without complications - Gastro-esophageal reflux disease without esophagitis - Allergy status to other drugs, medicaments and biological substances - Syndrome of inappropriate secretion of antidiuretic hormone - Other intermediate designer (current) drug therapy 03/23/2021 00:44 [facility] [place] TYPE: Emergency COMPLAINT: - VOMITING 05/21/2020 14:26 [facility] [place] TYPE: Emergency COMPLAINT: - HEADACHE DIAGNOSES: - Allergy status to other drugs, medicaments and biological substances - Allergy status to narcotic agent - Hypo-osmolality and hyponatremia - Headache - Type 2 diabetes mellitus without complications - Gastro-esophageal reflux disease without esophagitis - Other residential (current) drug therapy - Migraine, unspecified, not intractable, without status migrainosus INPATIENT VISIT TRACKING (12 MO.) 04/15/2021 09:56 [facility] [place] TYPE: Observation COMPLAINT: - HYPONATREMIA/CONSTIPATION DIAGNOSES: - Other residential (current) drug therapy - Postprocedural hypothyroidism - Weakness - Allergy status to narcotic agent - Gastro-esophageal reflux disease without esophagitis - Syndrome of inappropriate secretion of antidiuretic hormone - Constipation, unspecified - Prediabetes - Allergy status to other drugs, medicaments and biological substances 03/23/2021 09:22 [facility] [place] TYPE: Critical Care COMPLAINT: - HYPONATHREMIA DIAGNOSES: - Other residential (current) drug therapy - Gastro-esophageal reflux disease without esophagitis - Type 2 diabetes mellitus without complications - Hypo-osmolality and hyponatremia - Allergy status to other drugs, medicaments and biological substances - Other specified postprocedural states - Syndrome of inappropriate secretion of antidiuretic hormone - Other disorders of bilirubin metabolism - Allergy status to narcotic agent [email or web address]
--- NOTE | 2021-04-28 02:20 | NUR ---
PT ARRIVES TO FLOOR VIA STRETCHER. STOOD AND TRANSFERED TO BED. ADMISSION PROCESS COMPLETE. PT ASSESSMENT COMPLETE. PT REMAINS VERY DROWSY THROUGHOUT ASSESSMENT. WAKES BRIEFLY TO ANSWER QUESTIONS BUT QUICKLY FALLS BACK TO SLEEP. PT DENIES PAIN, SOB, OR NAUSEA. REPORTS OCCASIONAL LIGHTHEADEDNESS WITH MOVEMENT. EDCUATION PROVIDED REGARDING CALLING FOR ASSISTANCE AND CALL LIGHT USE. PT STATES UNDERSTANDING. IV FLUSHED, WNL, PATENT. WARM BLANKET AND ICE WATER PROVIDED. PT DENIES FURTHER NEEDS. CALL LIGHT AND PERSONAL ITEMS LEFT WITHIN PT REACH.
--- NOTE | 2021-04-28 02:32 | NUR ---
TRANSFERRED PATIENT FROM ED TO MS. PATIENT WAS ASLEEP IN BED CALL LIGHT LEFT WITHIN REACH AND ROOM ORGANIZED.
--- NOTE | 2021-04-28 05:31 | NUR ---
PT RESTING IN BED WITH EYES CLOSED. WAKES TO WRITERS VOICE AND TOUCH. PT STATES THAT SHE WAS SLEEPING VERY WELL. PT UP TO BATHROOM AND BACK TO BED WITH 1 PA. PT DENIES NAUSEA, DIZZINESS, OR LIGHTHEADEDNESS. WARM BLANKET PROVIDED. VS OBTAINED. PT DENIES FURTHER NEEDS AT THIS TIME. CALL LIGHT IN REACH.
--- NOTE | 2021-04-28 07:39 | NUR ---
THIS RN RECEIED REPORT FROM DEREK NAM. PT APPEARS TO BE RESTING COMFOTABLY AT THIS TIME WITH RESPIRATIONS NOTED
--- NOTE | 2021-04-28 08:30 | NUR ---
THIS RN IN PTS ROOM TO CHECK ON PT. PT STATES THAT SHE IS FEELING BETTER THIS AM AND THAT SHE HAD A GOOD NIGHT SLEEP LAST NIGHT. PT ASKING ABOUT HAVING NEW LABS DONE, THIS RN INFORMED HER THAT MD WILL BE ORDERING SOME SOON. PT STATES THAT SHE DOES NOT NEED ANYTHING AT THIS TIME.
--- NOTE | 2021-04-28 08:35 | NUR ---
PT NOTIFIED THIS RN THAT WE ARE ALLOWED TO GIVE UPDATES TO HER SONS AND TO HER SIGNIFICANT OTHER SHIRLEY DESPITE BEING CONFIDENTIONAL
--- NOTE | 2021-04-28 10:30 | NUR ---
THIS RN IN PTS ROOM TO GIVE PT HER SCHEDULED MEDS. PT DENIES HAVING ANY NAUSEA THIS AM AND WAS ABLE TO HAVE A GOOD APPETTITE. PT STATES THAT SHE WOULD LIKE TO HAVE METAMUCIL THAT SHE TAKES OTC AT HOME. THIS RN INFORMED MD. NO OTHER NEEDS DISCUSSED AT THIS TIME.
--- NOTE | 2021-04-28 13:00 | NUR ---
THIS RN IN PTS ROOM TO CHECK ON PT. PT STATES THAT SHE IS DOING WELL BUT DOES HAVE A HEADACHE PAIN LEVEL 4/10 BUT DENIES DESIRE FOR PAIN MED AT THIS TIME. PT STATES UNDERSTANDING WHEN THIS RN DISUCUSSED DELTA PT ABOUT PLAN OF CARE FOR THE DAY
--- NOTE | 2021-04-28 15:15 | NUR ---
THIS RN IN PTS ROOM TO GIVE PT HER TIMED MED. PT ALSO REQUESTING TYLENOL AT THSI TIME FOR AN INTOLREABLE PAIN IN HER HEAD- HEADACHE. PT STATES THAT OTHERWISE IS DOING WELL AND HAS NO N/V
--- NOTE | 2021-04-28 19:50 | NUR ---
REPORT RECEIVED FROM OFFGOING RN. PT RESTING IN BED WITH EYES CLOSED. DOES NOT WAKE WHEN SERVICE CENTER REPRESENTATIVE OPENS THE DOOR. CALL LIGHT IN REACH.
--- NOTE | 2021-04-28 23:01 | NUR ---
PT ASSESSMENT COMEPLETE. PT RESTING IN BED WITH EYES CLOSED. WAKES EASILY TO VOICE AND TOUCH. PT STATES THAT PAIN IS WELL CONTROLLED. PT PLACES NEW OTC PAIN RELIEF PATCH FOR BEDTIME. DENIES SOB OR NAUSEA. PT UP TO BATHROOM AND BACK TO BED WITH SBA. WARM BLANKET PROVIDED. IV FLUSHED, WNL, PATENT. PT DENIES FURTHER NEEDS AT THIS TIME. CALL LIGHT IN REACH.
--- NOTE | 2021-04-29 00:10 | NUR ---
PT RESTING IN BED WITH EYES CLOSED. RESPIRATIONS EVEN AND UNLABORED. PT APPEARS TO BE SLEEPING. CALL LIGHT IN REACH.
--- NOTE | 2021-04-29 00:35 | NUR ---
PT UTLIZES CALL LIGHT, REQUESTS TO USE THE BATHROOM. SBA TO BATHROOM AND BACK TO BED. PT DENIES FURTHER NEEDS AT THIS TIME. CALL LIGHT IN REACH.
--- NOTE | 2021-04-29 01:20 | NUR ---
PT UTLIZES CALL LIGHT, REPORTS DIFFICULTY FALLING BACK TO SLEEP. REQUESTS PRN, ADMINISTERED. CALL LIGHT IN REACH.
--- NOTE | 2021-04-29 02:40 | NUR ---
PT ASSESSMENT COMPLETE. PT RESTING IN BED WITH EYES CLOSED. WAKES EASILY. PT DENIES PAIN, NAUSEA, OR SOB. IV SL. PT DENIES FURTHER NEEDS AT THIS TIME. CALL LIGHT IN REACH.
--- NOTE | 2021-04-29 03:43 | NUR ---
PT RESTING IN BED WITH EYES CLOSED. DOES NOT WAKE WHEN MARKETING ROTATION ASSOCIATE AT DOORWAY. CALL LIGHT IN REACH.
--- NOTE | 2021-04-29 07:26 | NUR ---
THIS RN RECEIVED REPORT FROM DEREK NAM. PT APPEARS TO BE RESTING COMFORTABLY AT THIS TIME WITH RESPIRATIONS NOTED
--- NOTE | 2021-04-29 09:10 | NUR ---
PATIENT WAS IN CHAIR FOR BREAKFAST. PATIENT NOW BACK TO BED, IND. VITALS AND I&O'S CHARTED. ORAL CARE SUPPLIES AT BEDSIDE, PATIENT SAID SHE WOULD GET UP AND BRUSH TEETH IN A LITTLE BIT AND WILL SHOWER LATER. WARM WASHCLOTH GIVEN. FRESH WATER GIVEN. CALL LIGHT IN REACH. NO FURTHER NEEDS AT THIS TIME.
--- NOTE | 2021-04-29 09:55 | NUR ---
THIS RN IN PTS ROOM TO PROVIDE PT WITH HER MORNING MEDS. PT STATES THAT SHE GOT GOOD SLEEP DESPITE BEING WOKEN UP ON IN THE MIDDLE OF THE NIGHT BY THE PATIETN IN THE ROOM NEXT DOOR. PT DENIES A HEADACHE AND NAUSEA AT THIS TIME AND NEEDS NOTHING ELSE AT THIS TIME
--- NOTE | 2021-04-29 10:00 | NUR ---
It was my pleasure to round with Joselyn this morning. Joselyn states that she is "feeling better". She feels that her care has been "excellent", and that the nurses have met her expectations for patient care needs. She verbalizes understanding of her medications and side effects, and she states that she is going to talk to her PCP to make sure that she has a plan so that this issue (hyponatremia) does not occur again. Joselyn is oriented to person/place/time, and answers questions appropriately. She expresses no needs or concerns at this time and has no questions for me. She is aware that she will likely discharge today and states "I am ready to go home".
--- NOTE | 2021-04-29 13:18 | NUR ---
PT appeared to be in good spirits, indicating care had been good, and expressing hope that progress was being made. Accepted offer of prayer. Indicated a visit from Linux System Admin would be welcome. I left a note in the sacristry to that effect.
== END 2021-04-29 14:00 | disposition home or self-care (01) ==
LOC: ED 21:44 → MS 21:46
PROVIDERS: ADMIT Student in an Organized Health Care Education/Training Program; ATTEND Student in an Organized Health Care Education/Training Program
DX: E22.2 Syndrome of inappropriate secretion of antidiuretic hormone (principal); K21.9 Gastro-esophageal reflux disease without esophagitis; Z91.14 Patient's other noncompliance with medication regimen; Z20.822 Contact with and (suspected) exposure to COVID-19; Z88.5 Allergy status to narcotic agent; Z88.8 Allergy status to other drugs, medicaments and biological substances
CPT/HCPCS: 80048; 80053; 81001; 84295; 85025; 96372; 96374; 96375; 99284-25; A9270-GY; C9803; G0378; J1650; J1885; J2550; J7040; U0003

== ENCOUNTER 2021-05-22 06:25 | Inpatient (IN) | payer MEDICARE, OTHER ==
[~2021-05-22] VITALS: Ht 167.6 cm; Wt 47.5 kg
--- OUTSIDE RECORDS SUMMARY | 2021-05-22 06:32 | XMS ---
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 Faby VISIT COUNT (12 MO.) [address] TOTAL 7 NOTE: Visits indicate total known visits. ED/UCC VISIT TRACKING (12 MO.) 05/22/2021 06:25 [facility] [place] TYPE: Emergency COMPLAINT: - WEAKNESS 05/12/2021 13:00 [facility] TYPE: Emergency DIAGNOSES: - Abnormal Lab - Hypo-osmolality and hyponatremia - Dizziness 04/27/2021 21:45 [facility] [place] TYPE: Emergency COMPLAINT: - NAUSEA,HEADACHE 04/15/2021 06:11 [facility] [place] [facility] [place] TYPE: Emergency COMPLAINT: - WEAKNESS, FLU SYMPTOMS 04/13/2021 18:34 [facility] [place] [facility] [place] TYPE: Emergency COMPLAINT: - VOMITING DIAGNOSES: - Other alf (current) drug therapy - Syndrome of inappropriate secretion of antidiuretic hormone - Allergy status to narcotic agent - Allergy status to other drugs, medicaments and biological substances - Nausea with vomiting, unspecified - Type 2 diabetes mellitus without complications - Gastro-esophageal reflux disease without esophagitis 04/13/2021 08:56 [facility] [place] [facility] [place] TYPE: Emergency COMPLAINT: - WEAKNESS, NAUSEA DIAGNOSES: - Allergy status to narcotic agent - Type 2 diabetes mellitus without complications - Gastro-esophageal reflux disease without esophagitis - Allergy status to other drugs, medicaments and biological substances - Syndrome of inappropriate secretion of antidiuretic hormone - Other rn long term care (current) drug therapy 03/23/2021 00:44 [facility] [place] [facility] [place] TYPE: Emergency COMPLAINT: - VOMITING INPATIENT VISIT TRACKING (12 MO.) 04/27/2021 21:46 [facility] [place] TYPE: Observation COMPLAINT: - HYPONATREMIA DIAGNOSES: - Gastro-esophageal reflux disease without esophagitis - Hypo-osmolality and hyponatremia - Syndrome of inappropriate secretion of antidiuretic hormone - Patient's other noncompliance with medication regimen - Allergy status to narcotic agent - Allergy status to other drugs, medicaments and biological substances 04/15/2021 09:56 [facility] [place] TYPE: Observation COMPLAINT: - HYPONATREMIA/CONSTIPATION DIAGNOSES: - Other rn long term care (current) drug therapy - Postprocedural hypothyroidism - Weakness - Allergy status to narcotic agent - Gastro-esophageal reflux disease without esophagitis - Syndrome of inappropriate secretion of antidiuretic hormone - Constipation, unspecified - Prediabetes - Allergy status to other drugs, medicaments and biological substances 03/23/2021 09:22 [facility] [place] TYPE: Critical Care COMPLAINT: - HYPONATHREMIA DIAGNOSES: - Other rn long term care (current) drug therapy - Gastro-esophageal reflux disease without esophagitis - Type 2 diabetes mellitus without complications - Hypo-osmolality and hyponatremia - Allergy status to other drugs, medicaments and biological substances - Other specified postprocedural states - Syndrome of inappropriate secretion of antidiuretic hormone - Other disorders of bilirubin metabolism - Allergy status to narcotic agent [email or web address]
--- NOTE | 2021-05-22 12:00 | NUR ---
PT AAOX4, LUNG LOBES CLEAR, ABD SOUND PRESENT, NO PERIPH. EDEMA NOTED, V/S WDL OVERALL. WILL CONTINUE TO MONITOR.
--- NOTE | 2021-05-22 12:41 | NUR ---
PATIENT SITTING UP IN BED TO EAT LUNCH. IVF PAUSED WHILE PATIENT IS EATING. PATIENT DENIES OTHER NEEDS.
--- NOTE | 2021-05-22 14:00 | NUR ---
PT IN ROOM. NO NEW CONCERNS ARE NOTED AT THIS TIME.
--- NOTE | 2021-05-22 15:46 | NUR ---
B/P was 90/61. RN was notified. Vitals, I&Os are complete. Patient is feeling pain above belly button, RN was notified and is assesing. Patiet would like a protien shake. Call light is in reach.
--- NOTE | 2021-05-22 16:00 | NUR ---
PT DID HAVE A BM. BM WAS VERY FIRM HOWEVER. PT ALSO IS NOW COMPLAINING OF ABD PAIN. ABD SOUNDS ARE PRESENT HOWEVER AND NO DISTENTION HAS BEEN NOTED. MD FELIX AWARE OF FIRM STOOL. PT USED BSC FOR TOILETING. PT DENIED DIZZINESS WITH STANDING, PT HOWEVER APPEARS WEAK OVERALL. WILL CONTINUE TO MONITOR.
--- NOTE | 2021-05-22 17:35 | NUR ---
SINCE ARRIVAL, V/S HAVE BEEN WDL. BP'S ARE SOFT BUT ACCEPTABLE. PT VOIDED AND HAD A VERY FIRM BOWEL MOVEMENT. DULCOLAX WAS GIVEN. FLUID RESTRICTION IN PLACE. LUNG LOBES CLEAR, ABD SOUNDS PRESENT, NO PERIPH. EDEMA NOTED. PT STATED THAT SHE HAS LESS DIZZINESS AT THIS TIME.
--- NOTE | 2021-05-22 19:28 | NUR ---
PATIENT RESTING QUIETLY IN LOW FOWLERS POSITION IN BED, EYES CLOSED, RESPIRATIONS REGULAR AND EVEN, AND CALL LIGHT IS IN REACH. SHIFT REPORT RECEIVED FROM VIV BABCOCK.
--- NOTE | 2021-05-22 19:42 | NUR ---
in to assist pt to the bsc and back to bed, pt asking if bloodwork was back and if she was due for any meds
--- NOTE | 2021-05-22 20:30 | NUR ---
IN TO GET VITALS, I&Os DONE, PTs DENURES PLACED IN SOLUTION FOR PT
--- NOTE | 2021-05-22 20:45 | NUR ---
PATIENT RESTING IN BED. PATIENT HAS A 4/10 SPRINGER WITH SOME NECK PAIN AND GIVEN PO TYLENOL. PATIENTS PM ASSESSMENT COMPLETE ANVS ARE STABLE. PATIENT SITTING UP AND GUALBERTO PEDERSEN HELPING PATIENT WITH ORAL CARE. NO OTHER CARE NEEDS AT THIS TIME. CALL LIGHT IS IN REACH.
--- NOTE | 2021-05-22 22:40 | NUR ---
RETURNED TO WITH FRESH ICE WATER, SETUP PT WITH TOOTHBUSH AT BEDSIDE, NO FUTHER NEEDS AT THIS TIME
--- NOTE | 2021-05-22 23:00 | NUR ---
PT UP TO THE BSC, THEN BACK TO BED, NO FURTHER NEEDS AT THIS TIME
--- NOTE | 2021-05-23 00:05 | NUR ---
PATIENT'S IV BEEPING. PATIENT HAD BENT HER ARM AND OCCLUDED HER IV. IV SITE LOOKS FINE AND IV RESTARTED. PATIENT HAS NO OTHER CARE NEEDS AT THIS TIME. PATIENT'S SPRINGER IS BETTER AND CALL LIGHT IS IN REACH.
--- NOTE | 2021-05-23 01:11 | NUR ---
PT CALLED AND REQUESTED A WARM BLANKET FOR HER UPPER BACK. GIVEN. NO OTHER NEEDS.
--- NOTE | 2021-05-23 02:06 | NUR ---
IN TO GET VITALS WITH RN, WASHCLOTH REDAMPENED FOR PT, WARM BLANKET PROVIDED FOR PTs BACK, NO FURTHER NEEDS AT THIS TIME
--- NOTE | 2021-05-23 02:12 | NUR ---
PATIENT 2AM ASSESSMENT COMPLETE AND NO CHANGES NOTED. PATIENT'S SPRINGER IS BACK AT 5/10 WITH SOME NECK AND LOW BACK PAIN BEFORE. VS ARE STABLE AND I+O RECORDED. PO TYLENOL REPEATED. PATIENT GIVEN A NEW WARM BLANKET BY GUALBERTO PEDERSEN. PATIENT HAS NO OTHER CARE NEEDS AT THIS TIME. CALL LIGHT IS IN REACH.
--- NOTE | 2021-05-23 03:04 | NUR ---
PATIENT RESTING QUIETLY ON HER LEFT SIDE WITH HEAD OF THE BED SLIGHTLY ELEVATED. RESPIRATIONS ARE REGULAR AND EVEN, EYES ARE CLOSED, CALL LIGHT IS IN REACH.
--- NOTE | 2021-05-23 03:42 | NUR ---
PT UP TO VOID, SBA TO THE BSC, WARM BLANKET FOR BACK, NO FURTHER NEEDS AT THIS TIME
--- NOTE | 2021-05-23 05:39 | NUR ---
AM ORTHOSTATIC VS COMPLETE AND CHARTED. PATIENT UP TO THE BEDSIDE COMMODE TO VOID. NUVIA QUALITY ASSURANCE SPECIALIST WITH PATIENT AND WILL GET PATIENT'S TEMP WHEN PATIENT GETS BACK TO BED. CALL LIGHT IN PATIENT'S REACH TO CALL WHEN SHE IS DONE WITH THE COMMODE.
--- NOTE | 2021-05-23 06:22 | NUR ---
AM ASSESSMENT COMPLETE. PATIENT DENIES PAIN AT THIS TIME. PATIENT INFORMED THIS RN SHE HAS BEEN ABLE TO GET SOME SLEEP TONIGHT. PATIENT HAS NO CURRENT NEEDS AT THIS TIME. LIGHTS TURNED DOWN AT PATIENT'S REQUEST. CALL LIGHT IS IN REACH.
--- NOTE | 2021-05-23 07:14 | NUR ---
REPORT RECEIVED FROM VIV GRENEE. PT RESTING IN BED, ALERT AND ORIENTED. PT REPORTS 3/10 ACHING NECK PAIN, DENIES NEED FOR MEDICATION AT THIS TIME. PT ALSO REPORT OCCATIONAL ABDOMINAL CRAMPS STATING "i MIGHT NEED TO HAVE ANOTHER BOWEL MOVEMENT SOON." PT DECLINES ASSISTANCE UP TO RESTROOM AT THIS TIME. NO ADDITIONAL REQUESTS OR COMPLAINTS. CALL LIGHT WITHIN REACH. BED RAILS UP.
--- NOTE | 2021-05-23 07:20 | NUR ---
ASSISTED PT OVER TO THE BSC, PT TRYING FOR BM, WILL CALL WHEN FINISHED
--- NOTE | 2021-05-23 07:28 | NUR ---
PT BACK TO BED, DENTURES BACK IN, NO FURTHER NEEDS AT THIS TIME
--- NOTE | 2021-05-23 07:30 | NUR ---
LAB CALLED TO COORDINATE MORNING LAB DRAWS AND MEDICAITON ADMINISTRATION. BREAKFAST TO BE HELD UNTIL 0900. STRAIGHTENING PRESS OPERATOR HELPER AND CHARGE NURSE UPDATED.
--- NOTE | 2021-05-23 07:52 | NUR ---
Patient called for bedside commode. Patient independent with commode. Warm cloth given for face, white board updated, blinds opened. Refused chair. Patient now in bed. Call light in reach, no further needs at this time.
--- NOTE | 2021-05-23 08:00 | NUR ---
MORNING ASSESSMEN, LABS AND MEDICATION DUE. THIS RN TO ROOM. LABS DRAWN BY MILES BERG, MEDICATION GIVEN IMMIDATLY AFTER LAB DRAW. PT UPDATED ON LABS AND PROCEEDURE AND VERBALIZES UNDERSTANDING. IV ASSESSED, WNL. NO S/S OF PHLEBITIS NOTED, BRISK BLOOD RETURN NOTED FROM IV SITE. PT REPORTS 3/10 PAIN IN NECK, DENIES NEED FOR MEDICATION AT THIS TIME. REPORTS A COOL WASHCLOTH IS HELPING. PT DENIES DIZZINESS THIS MORNING. ORTHOSTATIC VITAL SIGNS TAKEN, DROP IN BLOOD PRESSURE NOTED WITH STANDING, PT DENIES DIZZINESS WHILE STANDING. BLOOD PRESSURE COMPENSATES AFTER 3 MINUTES. PT NOTES STRENGTH IS IMPROVING. PT CONTINUES TO REPORT CONSTIPATION, WILL CONSULT MD REGARDING ADDITIONAL MEDICAITONS PT IS ON FLUID RESTRICTION. PT ENCOURAGED TO GET UP TO CHAIR, DECLINES AT THIS TIME, WAITING FOR BREAKFAST. PT DENIES ADDITIONAL REQUESTS OR COMPLAINTS. CALL LIGHT WITHIN REACH. BED RAILS UP. BREAKFAST HELD UNTIL AFTER LABS ARE COMPLETED.
--- NOTE | 2021-05-23 08:29 | NUR ---
LAB RETURNED TO BEDSIDE FOR 2ND LAB DRAW. PT TOELRATED WELL. PT REMAINS RESTING IN BED. NO ADDITIONAL REQUESTS OR COMPLAINTS. CALL LIGHT WITHIN REACH.
--- NOTE | 2021-05-23 09:49 | NUR ---
THIS RN TO ROOM TO CHECK ON PT. PT BACK TO BED AFTER EATING BREAKFAST UP TO CHAIR. PT DENIES PAIN AND NAUSE. VITAL SIGNS STABLE. WATER REFILLED WITHIN FLUID RESTRICTION. NO ADDITIONAL REQUESTS OR COMPLAINTS. CALL LIGHT WITHIN REACH. BED RAILS UP.
--- NOTE | 2021-05-23 10:52 | NUR ---
PT UP FOR SHOWER WITH SALVAGE GRINDER'S. IV SALINE LOCKED. PT DENIES PAIN AND NAUSEA. NO ADDITIONAL REQUESTS OR COMPLAINTS. CALL LIGHT WITHIN REACH.
--- NOTE | 2021-05-23 11:20 | NUR ---
Patient independent in shower. Warm blankets, towels, and shampoo set in bathroom for patients shower. Linens changed. GUALBERTO Hylton helped patient out of shower and back to bed. Call light within reach. No further needs at this time.
--- NOTE | 2021-05-23 11:55 | NUR ---
PT CALL LIGHT ON. PT REQUESTS ASSISTANCE UP TO CHAIR FOR LUNCH. STAND BY ASSIST. UP TO CHAIR. PT DENIES DIZZINESS WITH AMBULATION AND DURING SHOWER. PT EATING LUNCH. NO ADDITIONAL REQUESTS OR COMPLAINTS. CALL LIGHT WITHIN REACH.
--- NOTE | 2021-05-23 12:17 | NUR ---
THIS RN TO ROOM WITH MD FOR ROUNDS. PT REMAINS UP TO CHAIR FOR LUNCH. PT CONTINUES TO DENY DIZZINESS. ACTIVITY ENCORAUGED. ADDITIONAL DOES OF DOCULAX ORDERED PER PT REQUEST. MD STATES TO SALINE LOCK IV AT THIS TIME. IV FLUSHED AND SALINE LOCKED, ALCOHOL CAP APPLIED. NO ADDITIONAL REQUESTS OR COMPLAINTS. CALL LIGHT WITHIN REACH.
--- NOTE | 2021-05-23 13:15 | NUR ---
PATIENT CALLED TO USE RESTROOM. THIS MORPHOLOGIST IN ROOM TO HELP PAITENT TO RESTROOM, SBA. PATIENT THEN AMBULATED IN HALLWAY, SBA, TO SECOND NURSES STATION AND BACK. PATIENT SAID SHE FELT A LITTLE WEAK BUT TOLERATED IT WELL. PATIENT NOW BACK TO BED. CALL LIGHT IN REACH. NO FURTHER NEEDS AT THIS TIME.
--- NOTE | 2021-05-23 14:20 | NUR ---
AFTERNOON ASSESSMENT DUE. THIS RN TO ROOM. PT INVOLVED AND ASKING APPROPIRATE QUESITONS ABOUT HER CARE. QUESTIONS ANSWERED AND PT VERBALIZES UNDERSTANDING. PT REPORTS BASELINE CHRONIC 3/10 ACHING NECK/BACK PAIN, PT DENIES NEED FOR PAIN MEDICAITON AT THIS TIME. PT UP TO AMBULATE IN SMITH WITH THIS RN X 1/2 LAP. PT DENIES FEELINGS OF DIZZINESS WITH WALKING, PT REPORTS SMALL EPISODE OF "WOOZYNESS" WITH PREVIOUS AMBULATION AND STATES IT DICIPATED QUICKLY ONCE SHE RESTED "FOR A FEW SECONDS." LUNG SOUNDS CLEAR. HEART TONES REGULAR. PT REPORTS CONCERN FOR ONGOING CONSTIPATION. VERBAL ORDERS FROM MD FOR ADDITIONAL DOSE OF MEDICATION (SEE MAR). BOWEL TONES ACTIVE, PT DENIES TENDERNESS TO ABDOMEN.PT DENIES ADDITIONAL REQUESTS OR COMPLAINTS. CALL LIGHT WITHIN REACH. BED RAILS UP.
--- NOTE | 2021-05-23 14:39 | NUR ---
PT AWAKE IN BED. CALL LIGHT IN REACH. NO FURTHER NEEDS AT THIS TIME.
--- NOTE | 2021-05-23 14:57 | NUR ---
PATIENT WAS RESTING EARLIER BUT IS AWAKE NOW. SHE IS DOING WELL. I ASKED HER IF SHE HAD ANY QUESTIONS FROM THE INFO I PROVIDED YESTERDAY AND SHE SAID NO. HER CAME IN AND BROUGHT HER 2 OF HER [employer] PROTEIN DRINKS THAT SHE LIKES. THEY HAVE 30 GM OF PROTEIN EACH. SHE HAS A GOOD APPETITE AND REALLY LIKES OUR SALMON. I MENTIONED TO HER THAT IF SHE FEELS SHE NEEDS MORE HELP WITH HER NUTRITION IN THE FUTURE, SHE CAN GIVE ME A CALL FOR POSSIBLE OUTPATIENT SERVICES IF HER INSURANCE COVERS IT.
--- NOTE | 2021-05-23 15:40 | NUR ---
THIS RN TO ROOM TO CHECK ON PT. PT RESTING IN BED, VISITNG WITH FRIEND. MD CONSULTED REGARDING ENSURE INTAKE AND FLUID RESTRICTION. DR. FELIX STATES ENSURE INTAKE DOES NOT COUNT TOWARD PTS FLUID RESTRICTION, FLUID RESTRICITON IS ONLY FOR FREE WATER. PT UPDATED. PT DEMONSTRATES UNDERSTANDING AND STATES "OK, THEN NOW I'LL DRINK AN ENSURE." PT DENIES PAIN AND NAUSEA OR ADDITIONAL REQUESTS OR COMPLAINTS. CALL LIGHT WITHIN REACH. BED RAILS UP.
--- NOTE | 2021-05-23 15:49 | EKG ---
[facility] [address] [facility] [place] [address] Signed Normal sinus rhythm Normal ECG When compared with ECG of 15-APR-2021 06:17, No significant change was found Confirmed by VIJAY FELIX MD ([id number]) on 05/23/2021 3:48:57 PM Electronically Signed By: VIJAY FELIX MD 05/23/21 1549 PATIENT NAME: PASTORA TREJO Electrocardiogram DATE OF : 47 PHYSICIAN: VIJAY FELIX MD REPORT #: [id number] REPORT IS CONFIDENTIAL AND NOT TO BE RELEASED WITHOUT AUTHORIZATION
--- NOTE | 2021-05-23 16:00 | NUR ---
PT HERE FOR HYPONATREMIA. 1 PERSON STAND BY ASSIT UP TO CHAIR FOR MEALS AND TO AMBULATE IN SMITH. PT DENIES DIZZINESS THIS SHIFT. ORTHOSTATIC VITAL SIGNS IMPROVING SO FAR THIS SHIFT. PT TOLREATING REGULAR DIET AND 1600ML FREE WATER FLUID RESTRICTION. PT ALSO DRINKING ENSURE WHICH DOES NOT COUNT TOWARD FLUID RESTRICION, PER MD. IV NOW SALINE LOCKED. PT CONTINUES TO REPORT CONSTIPATION, ADDITIONAL MEDICATION GIVEN, MULTIPLE BOWEL MOVEMENTS THIS SHIFT. PT REPORTS STOOLS ARE SOFTENING. PT ALERT AND OREINTED. PT REPORTS 3/10 CHRONIC NECK/BACK PAIN THIS SHIFT, NO MEDCATIONS GIVEN SO FAR. COSYNTROPIN PANNEL DRAWN THIS MORNING. PT VOIDING QUANTITY SUFFICIENT. PT USES CALL LIGHT AND MAKES NEEDS KNOWN.
--- NOTE | 2021-05-23 17:00 | NUR ---
DINNER ARRIVED, STAND BY ASSIST UP TO CHAIR FRO DINNER. PT DENIES REQUESTS OR COMPLAINTS. EATING AND VISITNG WITH FRIEND. CALL LIGHT WITHIN REACH.
--- NOTE | 2021-05-23 17:42 | NUR ---
PT CALL LIGHT ON. STAND BY ASSIST UP TO RESTROOM. PT VOIDS WITHOUT ISSUE. PT FINISHED WITH DINNER. PT PERFORMS SELF HAO CARE. PT BACK TO BED. NO ADDITIONAL REQUESTS OR COMPLAINTS. CALL LIGHT WIHTIN REACH. BED RAILS UP.
--- NOTE | 2021-05-23 18:09 | NUR ---
PT UP TO AMBULATE IN SMITH WITH STAND BY ASSIST X 1/2 LAP. PT DENIES DIZZINESS AND REPORTS FEELING STEADY ON HER FEET. PT BACK TO ROOM. NO ADDITIONAL REQUESTS OR COMPLAINTS. CALL LIGHT WITHIN REACH.
--- NOTE | 2021-05-23 19:25 | NUR ---
SHIFT REPORT RECEIVED FROM DAYSMSFT VIV DRAPER AT BEDSIDE. pt RESTING IN BED WITH EYES CLOSED. RR EVEN AND UNLABORED, NO DISTRESS NOTED. CALL LIGHT REMAINS IN REACH OF pt.
--- NOTE | 2021-05-23 19:55 | NUR ---
IN TO ASSIST PT TO THE TOILET, SBA, VOIDED AND BACK TO BED, ASKING WHEN WE'LL BE IN FOR VITALS, THIS INSURANCE SOLICITOR WILL BE BACK IN TO GET PT READY FOR BED, NO FURTHER NEEDS AT THIS TIME
--- NOTE | 2021-05-23 21:20 | NUR ---
IN TO GET VITALS, PT UP TO VOID, RN IN RM TO OBTAIN ORTHOSTATIC VITALS, THIS ENGINE SETTER ASSISTING RN, NO FURTHER NEEDS AT THIS TIME
--- NOTE | 2021-05-23 21:30 | NUR ---
ASSESSMENT COMPLETE, NO SCHEDULED MEDS. pt VERBALIZES INTEREST IN GETTING A TYLENOL LATER IN SHIFT, BUT CURRENTLY DENIES PAIN-HX OF NECK/BACK PAIN WITH FALL AT HOME EARLIER THIS YEAR. pt INSTRUCTED TO USE CALL LIGHT AND NOTIFY TRUCKING CONTRACTOR IF TYLENOL IS NEEDED, pt VERBALIZES UNDERSTANDING. BOWEL TONES ACTIVE, pt DENIES NAUSEA. IV SITE WNL, FLUSHES EASILY. ORTHO VS TAKEN AND IN CHART, pt DENIES DIZZINESS WITH STANDING, A/OX4. CALL LIGHT IN REACH.
--- NOTE | 2021-05-23 23:23 | NUR ---
NO AM LABS ORDERED, pt ASKING EARLIER IN SHIFT. MESSAGE SENT TO MD QUIÑONES VIA MESSAGE SYSTEM. PRECISION INSTRUMENT MAKER AND REPAIRER JASWINDER MCKEON.
--- NOTE | 2021-05-23 23:46 | NUR ---
ROUNDED ON pt, pt STATES SHE FEELS "RESTLESS". UP SBA TO VOID, 500MLS STRAW COLORED URINE NOTED. pt BACK IN BED, STEADY ON FEET. DENIES DIZZINESS. PRN TYLENOL GIVEN FOR 3/10 PAIN IN NECK/HEADACHE. FRESH WATER ALSO PROVIDED, CALL LIGHT IN REACH. NO FURTHER NEEDS, CALL LIGHT IN REACH.
--- NOTE | 2021-05-24 00:29 | NUR ---
CALL LIGHT ANSWERED, pt VERBALIZES INABILITY TO SLEEP, WARM BLANKET PROVIDED. ATTEMPTED TO SET UP WHITE NOISE ON COMPUTER, pt STATES, "I CAN'T HEAR IT, THAT USUALLY MEANS MY SODIUM IS GOING DOWN WHEN I CAN'T HEAR". THERAPEUTIC COMMUNICATION PROVIDED, CALL LIGHT IN REACH. NO FURTHER NEEDS.
--- NOTE | 2021-05-24 01:24 | NUR ---
CALL LIGHT ANSWERED, pt UP TO VOID, SBA TO BATHROOM AND BACK TO BED. pt STEADY ON FEET, DENIES DIZZINESS. WARM BLANKETS PROVIDED X2, NO NEW CONCERNS OR NEEDS, CALL LIGHT IN REACH. WHEN ASKED IF PAIN MEDICATION IMPROVED NECK PAIN, pt STATES, "WELL I FELL ASLEEP FOR A LITTLE BIT".
--- NOTE | 2021-05-24 02:24 | NUR ---
CALL LIGHT ANSWERED, pt REQUESTING ADDITIONAL TYLENOL, EDUCATED ON LAST ADMINISTRATION TIME. WARM BLANKET GIVEN FOR COMFORT. CURRENT IV FIELD START, NEW IV PLACED BY VIV GORMAN. NO FURTHER NEEDS CALL LIGHT IN REACH.
--- NOTE | 2021-05-24 03:15 | NUR ---
CALL LIGHT ANSWERED, pt REPORTS PAIN AT IV SITE. IV SITE SALINE LOCKED, FLUSHES EASILY WITH 10MLS NORMAL SALINE. NO REDDNESS, EDEMA, OR LEAKING NOTED. BRISK BLOOD RETURN NOTED. pt STATES, "I'VE NEVER HAD ONE HURT LIKE THIS BEFORE". pt EDUCATED ON IV PLACEMENT AND INSERTION. NO ABNORMALITIES NOTED, WARM BLANKET PROVIDED FOR COMFORT TO ARM, WILL MONITOR. PRN TYLENOL GIVEN, SEE EMAR FOR NECK/HEADACHE PAIN. CALL LIGHT IN REACH, NO FURTHER NEEDS.
--- NOTE | 2021-05-24 04:29 | NUR ---
IV SITE REDRESSED PER pt REQUEST TO PROMOTE COMFORT. SITE APPEARS WNL, CONTINUES TO FLUSH EASILY AND BRISK BLOOD RETURN REMAINS NOTED. pt REPORTS PAIN IMPROVED, WILL MONITOR. GUALBERTO NUVIA IN ROOM TO COLLECT VS. CALL LIGHT IN REACH.
--- NOTE | 2021-05-24 05:10 | NUR ---
pt HAD A RESTLESS NIGHT, SLEPT VERY LITTLE THE SECOND HALF OF THE SHIFT. pt WORRIED REGARDING HOSPITALIZATION AND PLAN OF CARE MOVING FORWARD. pt ASKS QUESTIONS, REASSURED WITH THERAPEUTIC COMMUNICATION. PAIN CONTROLLED WITH PRN TYLENOL AND WARM BLANKETS TO NECK. SBA WITH AMBULATION, CALLS FOR NEEDS. VSS, A/OX4. NEW IV PLACED, SALINE LOCKED. REGULAR DIET, WITH FREE WATER FLUID RESTRICTION. NO AM LABS ORDERED, MESSAGE SENT TO DR QUIÑONES. LYE BATH OPERATORVIV SAN ALSO AWARE.
--- NOTE | 2021-05-24 05:49 | NUR ---
CALL LIGHT ANSWERED, pt ASKS IF THIS RN HAS HEARD BACK FROM MD REGARDING AM LABS. pt EDUCATED THAT MD WAS SENT A MESSAGE, BUT WILL NOT SEE MESAGE UNTIL MORNING WHEN MD LOGS INTO GOWEX, pt VERBALIZED UNDERSTANDING. REPORTS SOME LEFT CALF CRAMPING, pt DOING LEG STRETCHING EXERCISES IN BED. NO FURTHER NEEDS, CALL LIGHT IN REACH.
--- NOTE | 2021-05-24 07:30 | NUR ---
RECEIVED REPORT AT 0700. PT WAS AWAKE IN BED. NO NEW CONCERNS NOTED AT THAT TIME.
--- NOTE | 2021-05-24 09:00 | NUR ---
PT DENIES DIZZINESS WITH ACTIVITY OVERALL. ALL LOBES CLEAR, PT AAOX4, ABD SOUNDS PRESENT. NO PERIPH. EDEMA NOTED. OVERALL HER ASSESSMENT WAS WDL. PT DID STATE THAT SHE FEELS ANXIOUS ABOUT HER PENDING LAB RESULTS... CALLED LAB, RESULTS ARE STILL PENDING.
--- NOTE | 2021-05-24 09:01 | NUR ---
PATIENT RESTING IN BED. ATE 100% OF BREAKFAST. PATIENT VOIDED AND IS BACK IN BED. SHE DOES NOT NEED ANYTHING AT THIS TIME. CALL LIGHT IN REACH.
--- NOTE | 2021-05-24 11:00 | NUR ---
PT IN ROOM AT THIS TIME. NO NEW CONCERNS NOTED AT THIS TIME.
--- NOTE | 2021-05-24 13:36 | NUR ---
LAB WAS CALLED SINCE THE NEEDED LAB RESULTS ARE STILL PENDING. LUCY FROM LAB WILL CALL THE LAB IN [place] AGAIN.
--- NOTE | 2021-05-24 13:53 | NUR ---
KARTHIK FROM LAB CALLED TO REPORT THAT SHE CALLED [facility] AND WAS TOLD THAT RESULTS WILL NOT BE AVAILABLE UNTIL END OF THE DAYS TOMORROW. YESTURDAY IT WAS REPORTED THAT LAB RESULTS WOULD BE AVAILABLE IN 24 HOURS.
--- NOTE | 2021-05-24 14:00 | NUR ---
I was able to meet with Joselyn today, she is happy with her care in the hospital but frustrated with re-current visits to the hospital and re-current problem with no resolution to reason for her chronic issues with hyponatremia. She is especially appreciative of care offered by [facility] and [facility], giving them "many kudos". Pt feels like her problems may be related to her medications and plans to discuss this with Dr Seals when he rounds today. She also shares that she has met with the corporate director Brittanie, and she feels that this visit was very beneficial for her. She is now seeing an table filler, and she is anxious to receive her most current test results. At this time she has no further questions or concerns for this RN, and she states no complaints at this time regarding the care she is receiving.
--- NOTE | 2021-05-24 14:30 | NUR ---
PT HAS A NEW COMPLAINT OF ABD PAIN WITH CONSTIPATION DESPITE PO LAXATIVES. MD ISHMAEL WERNER. ENEMA ORDERED. ABD IS SOFT BUT TENDER TO TOUCH WITH ACTIVE BOWEL TONES. NO OTHER NEW CONCERNS WERE NOTED WITH THIS ASSESSMENT. WILL CONTINUE TO MONITOR.
--- NOTE | 2021-05-24 16:17 | NUR ---
SINCE THE ENEMA WAS GIVEN, PT ONLY HAD A VERY SMALL AND VERY FIRM BM. PT ALSO HAS CONCERNS ABOUT HER NA+ BEING INCRASED TO MUCH TO FAST. MD QUIÑONES IS AWARE.
--- NOTE | 2021-05-24 18:04 | NUR ---
V/S WDL, PT HAS DENIED DIZZINESS AT REST AND WITH ACTIVITY. ASSESSMENTS OVERALL WERE WDL. PT DOES STILL HAVE CONSTRIPATION HOWEVER. ENEMA WAS NOT VERY SUCCESSFUL. NA+ AT 118, PO NA+ GIVEN. FOLOWING NA+ LEVELS FOR NOW.
--- NOTE | 2021-05-24 18:06 | NUR ---
PT AT THIS TIME WANTS TO WAIT ON AN ADDITIIONAL ENEMA/SUPP.
--- NOTE | 2021-05-24 19:05 | NUR ---
SHIFT REPORT RECEIVED FROM DAYSHIFT VIV BABCOCK, pt AWAKE AND RESTING IN BED. 3% SALINE INFUSING AT 50MLS/HR, SITE WNL. RR EVEN AND UNLABORED, CALL LIGHT IN REACH AND BOARD UPDATED.
--- NOTE | 2021-05-24 19:40 | NUR ---
CALL LIGHT ANSWERED, PUMP ALARMING. ISSUE RESOLVED. 3% SODIUM CHLORIDE CONTINUES TO INFUSE @ 50MLS/HR, SITE WNL.
--- NOTE | 2021-05-24 19:54 | NUR ---
CALL LIGHT ANSWERED, pt REPORTS PUMP "STOPPED PUMPING". IN ROOM TO ASSESS, IV FLUIDS ARE INFUSING PER MD ORDERS, PIGGYBACK LINE IS STOPPED. pt EDUCATED ON PUMP AND REASSURED FLUIDS ARE INFUSING PER DIRECTED, pt INSTRUCTED TO CALL PIT OPERATOR IF PUMP BEEPS THIS INDICATES FLUIDS HAVE STOPPED. pt VERBALIZED UNDERSTANDING. CALL LIGHT IN REACH.
--- NOTE | 2021-05-24 20:09 | NUR ---
ASSESSMENT COMPLETE, NO SCHEDULED MEDS. pt DENIES PAIN AND NAUSEA, BOWEL TONES ACTIVE IN ALL QUADRANTS. BSC AT BEDSIDE. 3% SODIUM CHLORIDE INFUSING AT 50MLS/HR, SITE WNL AND FLUSHES EASILY. pt REPORTS BASELINE NUMBNESS AT FINGERTIPS. NO FURTHER NEEDS, CALL LIGHT IN REACH. pt A/OX4.
--- NOTE | 2021-05-24 22:19 | NUR ---
DR QUIÑONES CALLED RN STATION AND DISCUSSED RECENT SODIUM RESULT OF 120. PER DR QUIÑONES, TITRATE 3% SODIUM CHLORIDE FROM 50MLS/HR TO 30MLS/HR AND RECHECK SODIUM LEVELS AT 0200. CALL MD IF SODIUM LEVEL DROPS BELOW 120 WITH 0200 RESULTS, IF SODIUM IS ABOVE 120 NO NEED TO CALL MD AND CONTINUE TO INFUSE, WILL RECHECK WITH 0600 AM LABS. INFO ABOVE REPEATED BACK TO DR QUIÑONES FOR VERIFICATION, MACHINE I CUTTERVIV FAJARDO UPDATED. 3% SODIUM CHLORIDE TITRATED TO 30MLS/HR AT THIS TIME, WILL MONITOR. IV SITE REMAINS WNL.
--- NOTE | 2021-05-24 23:48 | NUR ---
ISABELLE FROM LAB CALLED AND NOTIFIED THIS RN OF ADRENOCORTICOTROPIC HORMONE- RESULT OF 10.1. PER LAB, NO REFERENCE. SHEET WITH LAB RESULT ON FRONT OF CHART, CLASSIFIED AD TAKER SCOTTY AWARE.
--- NOTE | 2021-05-24 23:55 | NUR ---
pt RESTING IN BED WITH EYES CLOSED, RR EVEN AND UNLABORED. NO DISTRESS NOTED, CALL LIGHT IN REACH.
--- NOTE | 2021-05-25 02:45 | NUR ---
pt RESTING IN BED WITH EYES CLOSED, RR EVEN AND UNLABORED. NO DISTRESS NOTED. 0200 SODIUM DRAW COLLECTED BY VIV CHAVEZ AT 0205. IV SITE WNL, CALL LIGHT IN REACH.
--- NOTE | 2021-05-25 03:15 | NUR ---
DR QUIÑONES ON PHONE, MADE AWARE OF 0200 SODIUM LAB DRAW RESULT- 124. PER MD CONTINUE INFUSING 3% SODIUM CHLORIDE AT 30MLS/HR, NO PARAMETERS GIVEN REGARDING AM SODIUM LEVELS WHEN ASKED. PER MD, HE WILL ASSESS IN THE MORNING.
--- NOTE | 2021-05-25 06:11 | NUR ---
ASSESSMENT COMPLETE, NO ACUTE CHANGES OR CONCERNS. IV SITE WNL, 3% SODIUM CHLORIDE INFUSING AT 30MLS/HR. LAB RECENTLY IN FOR AM LAB DRAW. VS AND I&O'S COMPLETE, CALL LIGHT IN REACH.
--- NOTE | 2021-05-25 06:46 | NUR ---
PT CALLED, REQUESTED WARM WASH CLOTH, GIVEN
--- NOTE | 2021-05-25 07:56 | NUR ---
PT AWAKE AND INTERACTIVE AT TIME OF SHIFT EXCHANGE. ALL QUESTIONS ANSWERED, CURRENT LAB VALUES REPORTED. PT DENIES DISCOMFORTS OR IMMEDIATE NEEDS. CALL LIGHT AND NEEDED ITEMS IN REACH.
--- NOTE | 2021-05-25 09:57 | NUR ---
PT HAS COMPANY AND IS ACTIVELY VISITING. BREAKFAST COMPLETED DENIES OTHER NEEDS. IV RATE ADJUSTED PER ORDERS.
--- NOTE | 2021-05-25 10:12 | NUR ---
Patient vitals, I&Os are done. Patient ordered lunch. Call light is in reach.
--- NOTE | 2021-05-25 12:20 | NUR ---
PT SITTING UP ON THE EDGE OF BED FOR NOON MEAL. WAITING TO SEE PCP.
--- NOTE | 2021-05-25 14:42 | NUR ---
Vitals, I&Os are complete. Patient is busy talking on phone. Call light in reach.
--- NOTE | 2021-05-25 15:44 | NUR ---
DR QUIÑONES IN TO SEE PT DISCUSSES ALTERED LABS AND POSSIBLE DIAGNOSIS WITH HER. ALL QUESTIONS ANSWERED. PT RESTING IN BED VISITOR IS PRESENT. DENIES ANY NEEDS OR DISCOMFORT.
--- NOTE | 2021-05-25 17:48 | NUR ---
Patient vitals, I&Os are completed. Call light is in reach. Patient is wondering if she is going to have a blood test for sodium.
--- NOTE | 2021-05-25 17:51 | NUR ---
PT UP IN THE CHAIR EATING EVENING MEAL.
--- NOTE | 2021-05-25 19:27 | NUR ---
REPORT RECEIVED FROM DAY SHIFT RN. PT LYING IN BED ALERT AND ORIENTED. WASHCLOTH PROVIDED PER REQUEST. PT DENIES NEEDS. WHITE BOARD UPDATED. CALL LIGHT IN REACH.
--- NOTE | 2021-05-25 21:02 | NUR ---
BOOK TRIMMER ROUNDING NOTE. PT RESTING IN BED. ORTHOSTATIC VS OBTAINED. PT TOLERATED WELL. NO REPORTS OF DIZZINESS OR LIGHTHEADEDNESS. PRIMARY RN TO ROOM. PT DENIES FURTHER NEEDS FROM THIS WINE BLENDER. CALL LIGHT IN REACH. WHITEBOARD UPDATED.
--- NOTE | 2021-05-25 21:14 | NUR ---
EVENING ASSESSMENT COMPLETE. PT DENIES PAIN OR NAUSEA. NO REPORTS OF DIZZINESS OR LIGHTHEADEDNESS. PT INDEPENDENT IN ROOM. AGREES TO CALL FOR STAFF ASSIST IF FEELING UNSTEADY. ORTHOSTATIC VS COMPLETED BY TESTER PRINTED CIRCUIT BOARDS. PT WITHIN FLUID RESTRICTION, FRESH ICE WATER PROVIDED. WARM BLANKET PROVIDED. PT DENIES QUESTIONS OR CONCERNS. CALL LIGHT IN REACH.
--- NOTE | 2021-05-25 23:23 | NUR ---
PT RESTING IN BED WITH EYES CLOSED, NO APPARENT DISTRESS.
--- NOTE | 2021-05-26 01:07 | NUR ---
PT LYING ON RIGHT SIDE RESTING IN BED WITH EYES CLOSED. RESPIRATIONS EVEN. CALL LIGHT IN REACH.
--- NOTE | 2021-05-26 04:15 | NUR ---
PT RESTING IN BED WITH EYES CLOSED. RESPIRATIONS EVEN. NO APPARENT DISTRESS. CALL LIGHT IN REACH.
--- NOTE | 2021-05-26 06:00 | NUR ---
VS AND I&O COMPLETE. PT REPORTS SHE SLEPT WELL. DENIES DIZZINESS OR LIGHTHEADEDNESS. VOID QS. PT REMAINS WELL WITHIN FLUID RESTRICTION. DENIES NEEDS. CALL LIGHT IN REACH.
--- NOTE | 2021-05-26 07:35 | NUR ---
this rn received report from rosa isela carrillo. pt awake this am and states that she is dizzy but feels hungry. this rn took pts bp- 119/71 and rosa isela rn provided pt with applesauce. this rn asked pt to call if dizziness gets worse or doesn't go away in 10-15 mins
--- NOTE | 2021-05-26 09:33 | NUR ---
MORNING MEDICATION DUE. THIS RN TO ROOM TO ASSIST WITH MED PASS. MEDICATION EDUCATION DONE WITH PT. PT VERBALIZES UNDERSTANDING AND STATES HER QUESTIONS HAVE BEEN ANSWERED. MEDICAITON GIVEN. PT ASKING QUESTIONS ABOUT HER CONDITION, EDUCATION DONE. PT RESTING IN BED CALL LIGHT WITHIN REACH. BED RAILS UP.
--- NOTE | 2021-05-26 10:00 | NUR ---
THIS RN IN PTS ROOM TO CHECK ON PT. PT SIGNIFICANT OTHER IN ROOM WITH HER. PT STATES THAT SHE IS FEELING BETTER AFTER EATING AND NOT DIZZY ANYMORE. PT HAS NO COMPLAINTS OR CONCERNS THIS AM
--- NOTE | 2021-05-26 14:00 | NUR ---
THIS RN IN PTS ROOM TO CHECK ON PT AND GIVE HER AFTERNOON MEDS. PT STATES THAT SHE IS DOING WELL AND ASKING WHAT HER LABS LOOK LIKE TDOAY AND ASKING WHAT THE PLAN IS. PT STATES THAT SHE IS TIRED FROM HER SHOWER BUT OTHERWISE DOING WELL. SHE WAS ABLE TO GO FOR A WALK WITH HER SIGNIFICANT OTHER MIDDDAY AND HAS NO COMPLAINTS AT THIS TIME- NO NOTED NAUSEA OR DIZZINESS
--- NOTE | 2021-05-26 18:15 | NUR ---
pt up walking halls at this time. denies dizziness
--- NOTE | 2021-05-26 19:51 | NUR ---
REPORT RECEIVED FROM DAY SHIFT RN. PT LYING IN BED ALERT AND ORIENTED. DENIES NEEDS. WHITE BOARD UPDATED. CALL LIGHT IN REACH.
--- NOTE | 2021-05-26 21:45 | NUR ---
EVENING ASSESSMENT COMPLETE. PRN TUMS ADMINISTERED FOR REPORTED REFLUX. PT DENIES PAIN OR NAUSEA. NO REPORTS OF LIGHTHEADEDNESS OR DIZZINESS. WARM WASHCLOTH AND ICE WATER PROVIDED. PT DENIES QUESTIONS OR CONCERNS. PT INDEPENDENT IN ROOM, WILL CALL FOR ASSISTANCE NEEDED. CALL LIGHT IN REACH.
--- NOTE | 2021-05-26 23:59 | NUR ---
PT AWAKE READING IN BED. WARM BLANKET PROVIDED. URINE EMPTIED. NO FURTHER NEEDS. CALL LIGHT IN REACH.
--- NOTE | 2021-05-27 01:52 | NUR ---
PT RESTING IN BED WITH EYES CLOSED, NAD.
--- NOTE | 2021-05-27 04:23 | NUR ---
IN TO ROUND ON PT. PT AWAKE. REPORTS NECK PAIN. DENIES PRN FOR PAIN. WARM BLANKET PROVIDED FOR NECK. NO FURTHER NEEDS. CALL LIGHT IN REACH.
--- NOTE | 2021-05-27 05:37 | NUR ---
PT SITTING UP IN BED READING. VS AND I&O COMPLETE. PT REPORTS BACK/NECK PAIN. CONTINUES TO REFUSE PRN FOR PAIN. STATES "I'LL WAIT A WHILE". FRESH WATER AND APPLE SAUCE PROVIDED. NO FURTHER NEEDS AT THIS TIME. CALL LIGHT IN REACH.
--- NOTE | 2021-05-27 07:41 | NUR ---
this rn received report from rosa isela carrillo. pt awake this am and has concerns that her sodium is down from yesterday. this rn provided pt with a heat pack for back pain that pt noted this am.
--- NOTE | 2021-05-27 09:25 | NUR ---
THIS RN IN PTS ROOM TO GIVE PT HER MORNING MEDS. PT ASKING ABOUT DOSING AND IF THATS WHAT SHE GOT YESTERDAY- THIS RN ABLE TO CLARIFY THIS PT. PT STATES THAT SHE NEEDS NOTHING FURTHER. PT AWAITING TO SEE THIS AM
--- NOTE | 2021-05-27 09:40 | NUR ---
Vitals, I&Os complete. Call light is in reavh. Patient has been using the bed call light instead because the hand held call light has stopped working.
--- NOTE | 2021-05-27 11:25 | NUR ---
PT UP WALKING HALLS AT THIS TIME
--- NOTE | 2021-05-27 13:52 | NUR ---
Patient would like to go on a walk soon. Call light is in reach. Vitals, I&Os are done.
[2021-05-27] MEDS ORDERED: FLUDROCORTISON0.1 MG PO (14:13)
[2021-05-27] MEDS ORDERED: HYDROCORTISONE5 MG PO (14:13)
[2021-05-27] MEDS ORDERED: HYDROCORTISONE10 MG PO (14:13)
[2021-05-27] MEDS ORDERED: SOLU-CORTEF100 MG INJ (15:07)
[2021-05-27] MEDS ORDERED: INSULIN SYRING1 EA47 MISC (15:07)
--- NOTE | 2021-05-27 17:30 | NUR ---
Vitals, I&Os are complete. Patient is talking with RN.
== END 2021-05-27 18:10 | disposition home or self-care (01) | DRG 644 ==
LOC: ED 06:25 → MS 06:26
PROVIDERS: ADMIT Internal Medicine; ATTEND Internal Medicine
DX: E27.1 Primary adrenocortical insufficiency (principal); E22.2 Syndrome of inappropriate secretion of antidiuretic hormone; G89.29 Other chronic pain; I95.1 Orthostatic hypotension; Z20.822 Contact with and (suspected) exposure to COVID-19; E86.0 Dehydration; M54.2 Cervicalgia; D50.9 Iron deficiency anemia, unspecified; K21.9 Gastro-esophageal reflux disease without esophagitis; Z98.890 Other specified postprocedural states; Z90.49 Acquired absence of other specified parts of digestive tract; Z90.89 Acquired absence of other organs; Z88.5 Allergy status to narcotic agent; Z88.8 Allergy status to other drugs, medicaments and biological substances; Z79.899 Other long term (current) drug therapy
CPT/HCPCS: 80048; 83735; 83935; 84295; 84300; 85025; 93005; 93010; 96372; 96375; C9803; G0378; J0834; J1650; J1885; J7121; J7131; U0003

== ENCOUNTER 2021-06-02 23:27 | Emergency (ER) | payer MEDICARE, OTHER ==
[~2021-06-02] VITALS: Ht 167.6 cm; Wt 47.2 kg
[~2021-06-02 23:27] MED LIST changes: +FLUDROCORTISON0.1 MG PO; +HYDROCORTISONE10 MG PO; +HYDROCORTISONE5 MG PO; +INSULIN SYRING1 EA47 MISC; +SOLU-CORTEF100 MG INJ
--- OUTSIDE RECORDS SUMMARY | 2021-06-02 23:36 | XMS ---
PreManage Notification: PASTORA TREJO Security Pet Care Associate Events No recent Security Events currently on file CRITERIA MET - 6 ED Visits in 6 Months - [facility] - 2 Visits in 30 Days CARE PROVIDERS [facility] PHONE: [phone] Bakari has no Care Guidelines for this patient. Faby VISIT COUNT (12 MO.) [address] TOTAL 8 NOTE: Visits indicate total known visits. ED/C VISIT TRACKING (12 MO.) 06/02/2021 23:28 DMITRIY Jeronimo TYPE: Emergency COMPLAINT: - WEAKNESS 05/22/2021 06:25 [place] [place] TYPE: Emergency COMPLAINT: - WEAKNESS [facility] DIAGNOSES: - Abnormal Lab - Hypo-osmolality and hyponatremia - Dizziness 04/27/2021 21:[address] [facility] [place] TYPE: Emergency COMPLAINT: - NAUSEA,HEADACHE 04/15/2021 06:11 [facility] [place] TYPE: Emergency COMPLAINT: - WEAKNESS, FLU SYMPTOMS 04/13/2021 18:34 [facility] [place] TYPE: Emergency COMPLAINT: - VOMITING DIAGNOSES: - Other half-way (current) drug therapy - Syndrome of inappropriate secretion of antidiuretic hormone - Allergy status to narcotic agent - Allergy status to other drugs, medicaments and biological substances - Nausea with vomiting, unspecified - Type 2 diabetes mellitus without complications - Gastro-esophageal reflux disease without esophagitis 04/13/2021 08:[address] [facility] [place] TYPE: Emergency COMPLAINT: - WEAKNESS, NAUSEA DIAGNOSES: - Allergy status to narcotic agent - Type 2 diabetes mellitus without complications - Gastro-esophageal reflux disease without esophagitis - Allergy status to other drugs, medicaments and biological substances - Syndrome of inappropriate secretion of antidiuretic hormone - Other half-way (current) drug therapy 03/23/2021 00:44 [facility] [place] TYPE: Emergency COMPLAINT: - VOMITING INPATIENT VISIT TRACKING (12 MO.) 05/24/2021 15:32 [facility] [place] TYPE: Medical Surgical COMPLAINT: - SYNCOPE DIAGNOSES: - Acquired absence of other organs - Syndrome of inappropriate secretion of antidiuretic hormone - Cervicalgia - Iron deficiency anemia, unspecified - Other chronic pain - Dehydration - Other specified postprocedural states - Primary adrenocortical insufficiency - Acquired absence of other specified parts of digestive tract - Dehydration - Allergy status to narcotic agent - Orthostatic hypotension - Acquired absence of other organs - Other half-way (current) drug therapy - Primary adrenocortical insufficiency - Acquired absence of other specified parts of digestive tract - Gastro-esophageal reflux disease without esophagitis - Other long term care phlebotomist (current) drug therapy - Allergy status to other drugs, medicaments and biological substances - Allergy status to narcotic agent - Cervicalgia - Other specified postprocedural states - Gastro-esophageal reflux disease without esophagitis - Iron deficiency anemia, unspecified - Syndrome of inappropriate secretion of antidiuretic hormone - Allergy status to other drugs, medicaments and biological substances - Other chronic pain 04/27/2021 21:46 [facility] [facility] TYPE: Observation COMPLAINT: - HYPONATREMIA DIAGNOSES: - Gastro-esophageal reflux disease without esophagitis - Hypo-osmolality and hyponatremia - Syndrome of inappropriate secretion of antidiuretic hormone - Patient's other noncompliance with medication regimen - Allergy status to narcotic agent - Allergy status to other drugs, medicaments and biological substances 04/15/2021 09:56 [facility] [facility] [place] TYPE: Observation COMPLAINT: - HYPONATREMIA/CONSTIPATION DIAGNOSES: - Other half-way (current) drug therapy - Postprocedural hypothyroidism - Weakness - Allergy status to narcotic agent - Gastro-esophageal reflux disease without esophagitis - Syndrome of inappropriate secretion of antidiuretic hormone - Constipation, unspecified - Prediabetes - Allergy status to other drugs, medicaments and biological substances 03/23/2021 09:22 [facility] [place] TYPE: Critical Care COMPLAINT: - HYPONATHREMIA DIAGNOSES: - Other long term care phlebotomist (current) drug therapy - Gastro-esophageal reflux disease without esophagitis - Type 2 diabetes mellitus without complications - Hypo-osmolality and hyponatremia - Allergy status to other drugs, medicaments and biological substances - Other specified postprocedural states - Syndrome of inappropriate secretion of antidiuretic hormone - Other disorders of bilirubin metabolism - Allergy status to narcotic agent [email or web address]
== END 2021-06-03 01:38 | disposition home or self-care (01) ==
LOC: ED 23:27
DX: E27.40 Unspecified adrenocortical insufficiency (principal); E86.9 Volume depletion, unspecified; K21.9 Gastro-esophageal reflux disease without esophagitis; Z88.5 Allergy status to narcotic agent; Z88.8 Allergy status to other drugs, medicaments and biological substances; Z88.2 Allergy status to sulfonamides; Z79.899 Other long term (current) drug therapy
CPT/HCPCS: 80053; 83735; 85025; 99283; J7030

== ENCOUNTER 2021-07-10 04:50 | Emergency (ER) | payer MEDICARE, OTHER ==
[~2021-07-10] VITALS: Ht 167.6 cm; Wt 52.6 kg
--- OUTSIDE RECORDS SUMMARY | 2021-07-10 04:58 | XMS ---
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 Care History Medical/Surgical 06/18/2021 [facility] - PATIENT IS CURRENTLY FOLLOWING UP WITH PCP DR CHEEMA VERY CLOSELY-LAST APT 06/06/21. - PATIENT SPECIAL ED ASSISTANT- DR TUCKER - WAS LAST SEEN 06/03/21- CONTACT NUMBER [phone] FAX# [phone]. E.D. VISIT COUNT (12 MO.) 1 [facility] 8 DMITRIY [place] TOTAL 9 NOTE: Visits indicate total known visits. ED/UCC VISIT TRACKING (12 MO.) 07/10/2021 04:51 [facility] [place] TYPE: Emergency COMPLAINT: - BACK AND NECK PAIN 06/02/2021 23:28 [facility] [place] TYPE: Emergency COMPLAINT: - WEAKNESS DIAGNOSES: - Unspecified adrenocortical insufficiency - Gastro-esophageal reflux disease without esophagitis - Allergy status to other drugs, medicaments and biological substances - Allergy status to narcotic agent - Volume depletion, unspecified - Allergy status to sulfonamides - Other manager intermediate (current) drug therapy 05/22/2021 06:25 [facility] [place] TYPE: Emergency COMPLAINT: - WEAKNESS 05/12/2021 13:00 [facility] TYPE: Emergency DIAGNOSES: - Abnormal Lab - Hypo-osmolality and hyponatremia - Dizziness 04/27/2021 21:45 [facility] [place] TYPE: Emergency COMPLAINT: - NAUSEA,HEADACHE 04/15/2021 06:11 [facility] [place] TYPE: Emergency COMPLAINT: - WEAKNESS, FLU SYMPTOMS 04/13/2021 18:34 [facility] [place] TYPE: Emergency COMPLAINT: - VOMITING DIAGNOSES: - Other manager intermediate (current) drug therapy - Syndrome of inappropriate [...] inappropriate secretion of antidiuretic hormone - Other mcc (current) drug therapy 03/23/2021 00:44 DMITRIY [facility]os [...] Acquired absence of other organs - Other manager intermediate (current) drug therapy - Primary adrenocortical insufficiency - Acquired absence of other specified parts of digestive tract - Gastro-esophageal reflux disease without esophagitis - Other manager intermediate (current) drug therapy - Allergy status to other drugs, medicaments and biological substances - Allergy status to narcotic agent - Cervicalgia - Other specified postprocedural states - Gastro-esophageal reflux disease without esophagitis - Iron deficiency anemia, unspecified - Syndrome of inappropriate secretion of antidiuretic hormone - Allergy status to other drugs, medicaments and biological substances - Other chronic pain 04/27/2021 21:46 [facility] [place] TYPE: Observation [...] Observation COMPLAINT: - HYPONATREMIA/CONSTIPATION DIAGNOSES: - Other mcc (current) drug therapy - Postprocedural hypothyroidism - Weakness - Allergy status to narcotic agent - Gastro-esophageal reflux disease without esophagitis - Syndrome of inappropriate secretion of antidiuretic hormone - Constipation, unspecified - Prediabetes - Allergy status to other drugs, medicaments and biological substances 03/23/2021 09:22 [facility] [place] [place] TYPE: Critical Care COMPLAINT: - HYPONATHREMIA DIAGNOSES: - Other mcc (current) drug therapy - Gastro-esophageal reflux disease without esophagitis - Type 2 diabetes mellitus without complications - Hypo-osmolality and hyponatremia - Allergy status to other drugs, medicaments and biological substances - Other specified postprocedural states - Syndrome of inappropriate secretion of antidiuretic hormone - Other disorders of bilirubin metabolism - Allergy status to narcotic agent [email or web address]
== END 2021-07-10 07:10 | disposition home or self-care (01) ==
LOC: ED 04:50
DX: M54.2 Cervicalgia (principal); G89.29 Other chronic pain; M54.50 Low back pain, unspecified; K21.9 Gastro-esophageal reflux disease without esophagitis; Z88.5 Allergy status to narcotic agent; Z88.8 Allergy status to other drugs, medicaments and biological substances; Z79.899 Other long term (current) drug therapy
CPT/HCPCS: 70450; 72125; 80053; 99284-25

== ENCOUNTER 2021-07-23 21:11 | Emergency (ER) | payer MEDICARE, OTHER ==
[~2021-07-23] VITALS: Ht 167.6 cm; Wt 52.2 kg
--- OUTSIDE RECORDS SUMMARY | 2021-07-23 21:16 | XMS ---
PreManage Notification: PASTORA TREJO Security Director Of Graduate Medical Education Events No recent Security Events currently on file CRITERIA MET - [facility] - 2 Visits in 30 Days - 6 ED Visits in 6 Months CARE PROVIDERS CAITLIN, Internal Medicine: Endocrinology, 06/18/2021-Current RICA Diabetes \T\ Metabolism PHONE: [phone] DENI [facility] 04/15/2021-Current PHONE: [phone] Bakari has no Care Guidelines for this patient. Care History Medical/Surgical 07/17/2021 [facility] - PATIENT HAS A FOLLOW UP APT WITH DR CHEEMA 07/31/21. 06/18/2021 [facility] - PATIENT IS CURRENTLY FOLLOWING UP WITH PCP DR CHEEMA VERY CLOSELY-LAST APT 06/06/21. - PATIENT DIAMOND POLISHER- DR TUCKER - WAS LAST SEEN 06/03/21- CONTACT NUMBER [phone] FAX# [phone]. E.D. VISIT COUNT (12 MO.) 1 [place] [address] DMITRIY Costa TOTAL 10 NOTE: Visits indicate total known visits. ED/UCC VISIT TRACKING (12 MO.) 07/23/2021 21:12 [facility] [place] TYPE: Emergency COMPLAINT: - MIGRAINE 07/10/2021 04:51 [facility] [place] [place] TYPE: Emergency COMPLAINT: - BACK AND NECK PAIN DIAGNOSES: - LOW BACK PAIN, UNSPECIFIED - Other chronic pain - Allergy status to other drugs, medicaments and biological substances - Allergy status to narcotic agent - Gastro-esophageal reflux disease without esophagitis - Cervicalgia - Other longterm (current) drug therapy 06/02/2021 23:28 [facility] [place] TYPE: Emergency COMPLAINT: - WEAKNESS DIAGNOSES: - Unspecified adrenocortical insufficiency - Gastro-esophageal reflux disease without esophagitis - Allergy status to other drugs, medicaments and biological substances - Allergy status to narcotic agent - Volume depletion, unspecified - Allergy status to sulfonamides - Other buttermaker (current) drug therapy 05/22/2021 06:25 DMITRIY Jeronimo TYPE: Emergency COMPLAINT: - WEAKNESS 05/12/2021 13:00 [facility] TYPE: Emergency DIAGNOSES: - Abnormal Lab - Hypo-osmolality and hyponatremia - Dizziness 04/27/2021 21:45 [facility] [place] TYPE: Emergency COMPLAINT: - NAUSEA,HEADACHE 04/15/2021 06:11 [facility] [place] TYPE: Emergency COMPLAINT: - WEAKNESS, FLU SYMPTOMS 04/13/2021 18:34 [facility] [place] TYPE: Emergency COMPLAINT: - VOMITING DIAGNOSES: - Other longterm (current) drug therapy - Syndrome of inappropriate secretion of antidiuretic hormone - Allergy status to narcotic agent - Allergy status to other drugs, medicaments and biological substances - Nausea with vomiting, unspecified - Type 2 diabetes mellitus without complications - Gastro-esophageal reflux disease without esophagitis 04/13/2021 08:56 [facility] [place] [place] TYPE: Emergency COMPLAINT: - WEAKNESS, NAUSEA DIAGNOSES: - Allergy status to narcotic agent - Type 2 diabetes mellitus without complications - Gastro-esophageal reflux disease without esophagitis - Allergy status to other drugs, medicaments and biological substances - Syndrome of inappropriate secretion of antidiuretic hormone - Other longterm (current) drug therapy 03/23/2021 00:44 DMITRIY Villalobos [...] Acquired absence of other organs - Other buttermaker (current) drug therapy - Primary adrenocortical insufficiency - Acquired absence of other specified parts of digestive tract - Gastro-esophageal reflux disease without esophagitis - Other buttermaker (current) drug therapy - Allergy status to other drugs, medicaments and biological substances - Allergy status to narcotic agent - Cervicalgia - Other specified postprocedural states - Gastro-esophageal reflux disease without esophagitis - Iron deficiency anemia, unspecified - Syndrome of inappropriate secretion of antidiuretic hormone - Allergy status to other drugs, medicaments and biological substances - Other chronic pain 04/27/2021 21:46 [facility] [place] TYPE: Observation COMPLAINT: - HYPONATREMIA DIAGNOSES: - Gastro-esophageal reflux disease without esophagitis - Hypo-osmolality and hyponatremia - Syndrome of inappropriate secretion of antidiuretic hormone - Patient's other noncompliance with medication regimen - Allergy status to narcotic agent - Allergy status to other drugs, medicaments and biological substances 04/15/2021 09:56 [facility] [place] TYPE: Observation COMPLAINT: - HYPONATREMIA/CONSTIPATION DIAGNOSES: - Other longterm (current) drug therapy - Postprocedural hypothyroidism - Weakness - Allergy status to narcotic agent - Gastro-esophageal reflux disease without esophagitis - Syndrome of inappropriate secretion of antidiuretic hormone - Constipation, unspecified - Prediabetes - Allergy status to other drugs, medicaments and biological substances 03/23/2021 09:22 [facility] [place] TYPE: Critical Care COMPLAINT: - HYPONATHREMIA DIAGNOSES: - Other buttermaker (current) drug therapy - Gastro-esophageal reflux disease without esophagitis - Type 2 diabetes mellitus without complications - Hypo-osmolality and hyponatremia - Allergy status to other drugs, medicaments and biological substances - Other specified postprocedural states - Syndrome of inappropriate secretion of antidiuretic hormone - Other disorders of bilirubin metabolism - Allergy status to narcotic agent [email or web address]
[2021-07-23] MEDS ORDERED: CYCLOBENZAPRINE5 MG PO (21:30)
[2021-07-23] MEDS ORDERED: PANTOPRAZOLE SO40 MG PO (21:30)
== END 2021-07-24 00:05 | disposition home or self-care (01) ==
LOC: ED 21:11
DX: G43.909 Migraine, unspecified, not intractable, without status migrainosus (principal); K21.9 Gastro-esophageal reflux disease without esophagitis; Z88.5 Allergy status to narcotic agent; Z88.8 Allergy status to other drugs, medicaments and biological substances
CPT/HCPCS: 80053; 96374; 96375; 99283-25; A9270; J0780; J1170; J1200; J1885; J2405; J7030

== ENCOUNTER 2021-08-07 07:04 | Emergency (ER) | payer MEDICARE, OTHER ==
[~2021-08-07] VITALS: Ht 167.6 cm; Wt 52.2 kg
[~2021-08-07 07:04] MED LIST changes: +CYCLOBENZAPRINE5 MG PO
--- OUTSIDE RECORDS SUMMARY | 2021-08-07 07:10 | XMS ---
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 Care History Medical/Surgical 07/17/2021 [facility] - PATIENT HAS A FOLLOW UP APT WITH DR CHEEMA 07/31/21. 06/18/2021 [facility] - PATIENT IS CURRENTLY FOLLOWING UP WITH PCP DR CHEEMA VERY CLOSELY-LAST APT 06/06/21. - PATIENT COLLECTIONS PROFESSIONAL- DR TUCKER - WAS LAST SEEN 06/03/21- CONTACT NUMBER [phone] FAX# [phone]. E.D. VISIT COUNT (12 MO.) 1 [facility] 10 DMITRIY Costa TOTAL 11 NOTE: Visits indicate total known visits. ED/UCC VISIT TRACKING (12 MO.) 08/07/2021 07:06 [facility] [place] TYPE: Emergency COMPLAINT: - LEGS TINGLING, FAINT 07/23/2021 21:12 [facility] [place] [facility] COMPLAINT: - MIGRAINE DIAGNOSES: - Headache, unspecified - Migraine, unspecified, not intractable, without status migrainosus - Allergy status to narcotic agent - Allergy status to other drugs, medicaments and biological substances - Gastro-esophageal reflux disease without esophagitis 07/10/2021 04:51 [facility] [place] TYPE: Emergency COMPLAINT: - BACK AND NECK PAIN DIAGNOSES: - LOW BACK PAIN, UNSPECIFIED - Other chronic pain - Allergy status to other drugs, medicaments and biological substances - Allergy status to narcotic agent - Gastro-esophageal reflux disease without esophagitis - Cervicalgia - Other neuropsychology medical consultant (current) drug therapy 06/02/2021 23:28 [facility] [place]: Emergency COMPLAINT: - WEAKNESS DIAGNOSES: - Unspecified adrenocortical insufficiency - Gastro-esophageal reflux disease without esophagitis - Allergy status to other drugs, medicaments and biological substances - Allergy status to narcotic agent - Volume depletion, unspecified - Allergy status to sulfonamides - Other care home (current) drug therapy 05/22/2021 06:25 [facility] [place] TYPE: Emergency COMPLAINT: - WEAKNESS 05/12/2021 13:00 [facility] TYPE: Emergency DIAGNOSES: - Abnormal Lab - Hypo-osmolality and hyponatremia - Dizziness 04/27/2021 21:45 [facility] [place] TYPE: Emergency COMPLAINT: - NAUSEA,HEADACHE 04/15/2021 06:11 [facility] [place] TYPE: Emergency COMPLAINT: - WEAKNESS, FLU SYMPTOMS 04/13/2021 18:34 [facility] [place] TYPE: Emergency COMPLAINT: - VOMITING DIAGNOSES: - Other neuropsychology medical consultant (current) drug therapy - Syndrome of inappropriate [...] inappropriate secretion of antidiuretic hormone - Other neuropsychology medical consultant (current) drug therapy 03/23/2021 00:44 DMITRIY [place]os [...] Acquired absence of other organs - Other neuropsychology medical consultant (current) drug therapy - Primary adrenocortical insufficiency - Acquired absence of other specified parts of digestive tract - Gastro-esophageal reflux disease without esophagitis - Other care home (current) drug therapy - Allergy status to [...] Observation COMPLAINT: - HYPONATREMIA/CONSTIPATION DIAGNOSES: - Other neuropsychology medical consultant (current) drug therapy - Postprocedural hypothyroidism - Weakness - Allergy status to narcotic agent - Gastro-esophageal reflux disease without esophagitis - Syndrome of inappropriate secretion of antidiuretic hormone - Constipation, unspecified - Prediabetes - Allergy status to other drugs, medicaments and biological substances 03/23/2021 09:[address] [facility] [place] TYPE: Critical Care COMPLAINT: - HYPONATHREMIA DIAGNOSES: - Other care home (current) drug therapy - Gastro-esophageal reflux disease without esophagitis - Type 2 diabetes mellitus without complications - Hypo-osmolality and hyponatremia - Allergy status to other drugs, medicaments and biological substances - Other specified postprocedural states - Syndrome of inappropriate secretion of antidiuretic hormone - Other disorders of bilirubin metabolism - Allergy status to narcotic agent [email or web address]
[2021-08-07] MEDS ORDERED: PEPCID20 MG PO (07:31)
[2021-08-07] MEDS ORDERED: ONDANSETRON ODT8 MG PO (13:35)
[2021-08-07] MEDS ORDERED: HYDROCODON-ACE1 EA10 PO (13:35)
[2021-08-07] MEDS ORDERED: K-TAB ER20 MEQ PO (13:35)
== END 2021-08-07 13:52 | disposition home or self-care (01) ==
LOC: ED 07:04
DX: M54.2 Cervicalgia (principal); E87.1 Hypo-osmolality and hyponatremia; E27.40 Unspecified adrenocortical insufficiency; K21.9 Gastro-esophageal reflux disease without esophagitis; Z88.5 Allergy status to narcotic agent; Z88.8 Allergy status to other drugs, medicaments and biological substances; Z79.899 Other long term (current) drug therapy; Z20.822 Contact with and (suspected) exposure to COVID-19
CPT/HCPCS: 72100; 80048; 80053; 81001; 85025; 96374; 96375; 96376; 99285-25; J1170; J1720; J1885; J2405; J2550; J3480; J7030; J7060; U0003

== ENCOUNTER 2021-08-23 20:22 | Emergency (ER) | payer MEDICARE, OTHER ==
[~2021-08-23] VITALS: Ht 167.6 cm; Wt 54.0 kg
[~2021-08-23 20:22] MED LIST changes: +HYDROCODON-ACE1 EA10 PO; +K-TAB ER20 MEQ PO; +ONDANSETRON ODT8 MG PO; +PEPCID20 MG PO
--- OUTSIDE RECORDS SUMMARY | 2021-08-23 20:26 | XMS ---
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 Care History Medical/Surgical 07/17/2021 [facility] - PATIENT HAS A FOLLOW UP APT WITH DR CHEEMA 07/31/21. 06/18/2021 [facility] - PATIENT IS CURRENTLY FOLLOWING UP WITH PCP DR CHEEMA VERY CLOSELY-LAST APT 06/06/21. - PATIENT REVENUE COORDINATOR- DR TUCKER - WAS LAST SEEN 06/03/21- CONTACT NUMBER [phone] FAX# [phone]. E.D. VISIT COUNT (12 MO.) 1 [place] [id number] DMIT[facility]Y [place] TOTAL 12 NOTE: Visits indicate total known visits. ED/UCC VISIT TRACKING (12 MO.) 08/23/2021 20:23 [facility] [place] TYPE: Emergency COMPLAINT: - HEADACHE 08/07/2021 07:[address] [facility] [place] TYPE: Emergency COMPLAINT: - LEGS TINGLING, FAINT DIAGNOSES: - Cervicalgia - Allergy status to narcotic agent - Gastro-esophageal reflux disease without esophagitis - Unspecified adrenocortical insufficiency - Other correction (current) drug therapy - Weakness - Hypo-osmolality and hyponatremia - Allergy status to other drugs, medicaments and biological substances 07/23/2021 21:12 [facility] [place] [facility] [place] TYPE: Emergency COMPLAINT: - MIGRAINE DIAGNOSES: - Headache, unspecified - Migraine, unspecified, not intractable, without status migrainosus - Allergy status to narcotic agent - Allergy status to other drugs, medicaments and biological substances - Gastro-esophageal reflux disease without esophagitis 07/10/2021 04:51 [facility] [place] [facility] [place] TYPE: Emergency COMPLAINT: - BACK AND NECK PAIN DIAGNOSES: - LOW BACK PAIN, UNSPECIFIED - Other chronic pain - Allergy status to other drugs, medicaments and biological substances - Allergy status to narcotic agent - Gastro-esophageal reflux disease without esophagitis - Cervicalgia - Other correction (current) drug therapy 06/02/2021 23:28 [facility] [place] [place] TYPE: Emergency COMPLAINT: - WEAKNESS DIAGNOSES: - Unspecified adrenocortical insufficiency - Gastro-esophageal reflux disease without esophagitis - Allergy status to other drugs, medicaments and biological substances - Allergy status to narcotic agent - Volume depletion, unspecified - Allergy status to sulfonamides - Other correction (current) drug therapy 05/22/2021 06:25 [facility] [place] TYPE: Emergency COMPLAINT: - WEAKNESS 05/12/2021 13:00 [facility] TYPE: Emergency DIAGNOSES: - Abnormal Lab - Hypo-osmolality and hyponatremia - Dizziness 04/27/2021 21:45 [facility] TYPE: Emergency COMPLAINT: - NAUSEA,HEADACHE 04/15/2021 06:11 [facility] [place] TYPE: Emergency COMPLAINT: - WEAKNESS, FLU SYMPTOMS 04/13/2021 18:34 [facility] [place] TYPE: Emergency COMPLAINT: - VOMITING DIAGNOSES: - Other correction (current) drug therapy - Syndrome of inappropriate secretion of antidiuretic hormone - Allergy status to narcotic agent - Allergy status to other drugs, medicaments and biological substances - Nausea with vomiting, unspecified - Type 2 diabetes mellitus without complications - Gastro-esophageal reflux disease without esophagitis 04/13/2021 08:56 [facility] [place] TYPE: Emergency COMPLAINT: - WEAKNESS, NAUSEA DIAGNOSES: - Allergy status to narcotic agent - Type 2 diabetes mellitus without complications - Gastro-esophageal reflux disease without esophagitis - Allergy status to other drugs, medicaments and biological substances - Syndrome of inappropriate secretion of antidiuretic hormone - Other laborer marine terminal (current) drug therapy 03/23/2021 00:44 [facility] [place] [...] Acquired absence of other organs - Other correction (current) drug therapy - Primary adrenocortical insufficiency - Acquired absence of other specified parts of digestive tract - Gastro-esophageal reflux disease without esophagitis - Other laborer marine terminal (current) drug therapy - Allergy status to [...] Observation COMPLAINT: - HYPONATREMIA/CONSTIPATION DIAGNOSES: - Other laborer marine terminal (current) drug therapy - Postprocedural hypothyroidism - Weakness - Allergy status to narcotic agent - Gastro-esophageal reflux disease without esophagitis - Syndrome of inappropriate secretion of antidiuretic hormone - Constipation, unspecified - Prediabetes - Allergy status to other drugs, medicaments and biological substances 03/23/2021 09:22 [facility] [place] [place] TYPE: Critical Care COMPLAINT: - HYPONATHREMIA DIAGNOSES: - Other correction (current) drug therapy - Gastro-esophageal reflux disease without esophagitis - Type 2 diabetes mellitus without complications - Hypo-osmolality and hyponatremia - Allergy status to other drugs, medicaments and biological substances - Other specified postprocedural states - Syndrome of inappropriate secretion of antidiuretic hormone - Other disorders of bilirubin metabolism - Allergy status to narcotic agent [email or web address]
[2021-08-23] MEDS ORDERED: CYCLOBENZAPRINE5 MG PO (20:38)
== END 2021-08-23 22:07 | disposition home or self-care (01) ==
LOC: ED 20:22
DX: G43.909 Migraine, unspecified, not intractable, without status migrainosus (principal); K21.9 Gastro-esophageal reflux disease without esophagitis; Z88.5 Allergy status to narcotic agent; Z88.8 Allergy status to other drugs, medicaments and biological substances; Z79.899 Other long term (current) drug therapy
CPT/HCPCS: 80048; 96374; 96375; 99283-25; J0780; J1200; J1885; J7040

== ENCOUNTER 2021-08-25 06:50 | Emergency (ER) | payer MEDICARE, OTHER ==
[~2021-08-25] VITALS: Ht 167.6 cm; Wt 54.0 kg
--- OUTSIDE RECORDS SUMMARY | 2021-08-25 06:52 | XMS ---
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 Care History Medical/Surgical 07/17/2021 [facility] - PATIENT HAS A FOLLOW UP APT WITH DR CHEEMA 07/31/21. 06/18/2021 [facility] - PATIENT IS CURRENTLY FOLLOWING UP WITH PCP DR CHEEMA VERY CLOSELY-LAST APT 06/06/21. 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 E.D. VISIT COUNT (12 MO.) 1 [facility] 12 DMITRIY [place] TOTAL 13 NOTE: Visits indicate total known visits. ED/UCC VISIT TRACKING (12 MO.) 08/25/2021 06:51 [place] [place] TYPE: Emergency COMPLAINT: - BP PROBLEM,HEADACHE 08/23/2021 20:[address] [facility] [place] TYPE: Emergency COMPLAINT: - HEADACHE 08/07/2021 07:06 [facility] [place] TYPE: Emergency COMPLAINT: - LEGS TINGLING, FAINT DIAGNOSES: - Cervicalgia - Allergy status to narcotic agent - Gastro-esophageal reflux disease without esophagitis - Unspecified adrenocortical insufficiency - Other correction (current) drug therapy - Weakness - Hypo-osmolality and hyponatremia - Allergy status to other drugs, medicaments and biological substances 07/23/2021 21:12 [facility] [place] TYPE: Emergency COMPLAINT: - MIGRAINE DIAGNOSES: - Headache, unspecified - Migraine, unspecified, not intractable, without status migrainosus - Allergy status to narcotic agent - Allergy status to other drugs, medicaments and biological substances - Gastro-esophageal reflux disease without esophagitis 07/10/2021 04:51 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 TYPE: Emergency DIAGNOSES: - Abnormal Lab - Hypo-osmolality and hyponatremia - Dizziness 04/27/2021 21:[address] [facility] [place] TYPE: Emergency COMPLAINT: - NAUSEA,HEADACHE 04/15/2021 06:11 [facility] [place] TYPE: Emergency COMPLAINT: - WEAKNESS, FLU SYMPTOMS 04/13/2021 18:34 [facility] [place] TYPE: Emergency COMPLAINT: - VOMITING DIAGNOSES: - Other correction (current) drug therapy - Syndrome of inappropriate secretion of antidiuretic hormone - Allergy status to narcotic agent - Allergy status to other drugs, medicaments and biological substances - Nausea with vomiting, unspecified - Type 2 diabetes mellitus without complications - Gastro-esophageal reflux disease without esophagitis 04/13/2021 08:56 [facility] [place] TYPE: Emergency COMPLAINT: - WEAKNESS, NAUSEA DIAGNOSES: - Allergy status to narcotic agent - Type 2 diabetes mellitus without complications - Gastro-esophageal reflux disease without esophagitis - Allergy status to other drugs, medicaments and biological substances - Syndrome of inappropriate secretion of antidiuretic hormone - Other moth exterminator (current) drug therapy 03/23/2021 00:44 DMITRIY [facility] [...] Gastro-esophageal reflux disease without esophagitis - Other correction (current) drug therapy - Allergy status to other drugs, medicaments and biological substances - Allergy status to narcotic agent - Cervicalgia - Other specified postprocedural states - Gastro-esophageal reflux disease without esophagitis - Iron deficiency anemia, unspecified - Syndrome of inappropriate secretion of antidiuretic hormone - Allergy status to other drugs, medicaments and biological substances - Other chronic pain 04/27/2021 21:46 [facility] [place] TYPE: Observation COMPLAINT: - HYPONATREMIA DIAGNOSES: - Gastro-esophageal reflux disease without esophagitis - Hypo-osmolality and hyponatremia - Syndrome of inappropriate secretion of antidiuretic hormone - Patient's other noncompliance with medication regimen - Allergy status to narcotic agent - Allergy status to other drugs, medicaments and biological substances 04/15/2021 09:[address] [facility] [place] TYPE: Observation COMPLAINT: - HYPONATREMIA/CONSTIPATION DIAGNOSES: - Other moth exterminator (current) drug therapy - Postprocedural hypothyroidism - Weakness - Allergy status to narcotic agent - Gastro-esophageal reflux disease without esophagitis - Syndrome of inappropriate secretion of antidiuretic hormone - Constipation, unspecified - Prediabetes - Allergy status to other drugs, medicaments and biological substances 03/23/2021 09:22 [facility] [place] TYPE: Critical Care [...] metabolism - Allergy status to narcotic agent [email or web address]
== END 2021-08-25 10:05 | disposition home or self-care (01) ==
LOC: ED 06:50
DX: I10 Essential (primary) hypertension (principal); G43.909 Migraine, unspecified, not intractable, without status migrainosus; K21.9 Gastro-esophageal reflux disease without esophagitis; Z88.5 Allergy status to narcotic agent; Z88.8 Allergy status to other drugs, medicaments and biological substances; Z79.899 Other long term (current) drug therapy
CPT/HCPCS: 96374; 96375; 96376; 99283-25; A9270; J0780; J1200; J1885; J7030

== ENCOUNTER 2021-08-25 19:53 | Emergency (ER) | payer MEDICARE, OTHER ==
[~2021-08-25] VITALS: Ht 167.6 cm; Wt 54.0 kg
--- OUTSIDE RECORDS SUMMARY | 2021-08-25 19:56 | XMS ---
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 Care History Medical/Surgical 07/17/2021 [facility] [place] - PATIENT HAS A FOLLOW UP APT WITH DR CHEEMA 07/31/21. 06/18/2021 [facility] [place] - PATIENT IS CURRENTLY FOLLOWING UP WITH PCP DR CHEEMA VERY CLOSELY-LAST APT 06/06/21. 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 E.D. VISIT COUNT (12 MO.) 1 [place] [address] DMITRIY [place] TOTAL 14 NOTE: Visits indicate total known visits. ED/UCC VISIT TRACKING (12 MO.) 08/25/2021 19:54 [place] [place] TYPE: Emergency COMPLAINT: - HEADACHE HIGH BLOOD PRESSURE 08/25/2021 06:[address] [facility] [place] TYPE: Emergency COMPLAINT: - BP PROBLEM,HEADACHE 08/23/2021 20:[address] [facility] [place] TYPE: Emergency COMPLAINT: - HEADACHE 08/07/2021 07:06 [facility] [place] [facility] [place] TYPE: Emergency COMPLAINT: - LEGS TINGLING, FAINT DIAGNOSES: - Cervicalgia - Allergy status to narcotic agent - Gastro-esophageal reflux disease without esophagitis - Unspecified adrenocortical insufficiency - Other [place] [facility] (current) drug therapy - Weakness - Hypo-osmolality and hyponatremia - Allergy status to other drugs, medicaments and biological substances 07/23/2021 21:12 [facility] [place] [facility] [place] TYPE: Emergency COMPLAINT: - MIGRAINE DIAGNOSES: - Headache, unspecified - Migraine, unspecified, not intractable, without status migrainosus - Allergy status to narcotic agent - Allergy status to other drugs, medicaments and biological substances - Gastro-esophageal reflux disease without esophagitis 07/10/2021 04:51 [facility] [place] TYPE: Emergency COMPLAINT: - BACK AND NECK PAIN DIAGNOSES: - LOW BACK PAIN, UNSPECIFIED - Other chronic pain - Allergy status to other drugs, medicaments and biological substances - Allergy status to narcotic agent - Gastro-esophageal reflux disease without esophagitis - Cervicalgia - Other [place] [facility] (current[facility] drug therapy 06/02/2021 23:28 [facility] [place] TYPE: Emergency COMPLAINT: - WEAKNESS DIAGNOSES: - Unspecified adrenocortical insufficiency - Gastro-esophageal reflux disease without esophagitis - Allergy status to other drugs, medicaments and biological substances - Allergy status to narcotic agent - Volume depletion, unspecified - Allergy status to sulfonamides - Other [place] [facility] (current[facility] drug therapy 05/22/2021 06:25 [place] [place] TYPE: Emergency COMPLAINT: - WEAKNESS 05/12/2021 13:00 [facility] TYPE: Emergency DIAGNOSES: - Abnormal Lab - Hypo-osmolality and hyponatremia - Dizziness 04/27/2021 21:[address] [facility] [place] TYPE: Emergency COMPLAINT: - NAUSEA,HEADACHE 04/15/2021 06:11 [facility] [place]: [place] COMPLAINT: - WEAKNESS, FLU SYMPTOMS 04/13/2021 18:34 [facility] [place]: Emergency COMPLAINT: - VOMITING DIAGNOSES: - Other terminal supervisor (current) drug therapy - Syndrome of inappropriate [...] inappropriate secretion of antidiuretic hormone - Other terminal supervisor (current) drug therapy 03/23/2021 00:44 DMITRIY [place] [...] Acquired absence of other organs - Other [place] [facility] (current[facility] drug therapy - Primary adrenocortical insufficiency - Acquired absence of other specified parts of digestive tract - Gastro-esophageal reflux disease without esophagitis - Other [place] [facility] (current) drug therapy - Allergy status to [...] Observation COMPLAINT: - HYPONATREMIA/CONSTIPATION DIAGNOSES: - Other terminal supervisor (current) drug therapy - Postprocedural hypothyroidism - Weakness - Allergy status to narcotic agent - Gastro-esophageal reflux disease without esophagitis - Syndrome of inappropriate secretion of antidiuretic hormone - Constipation, unspecified - Prediabetes - Allergy status to other drugs, medicaments and biological substances 03/23/2021 09:22 [place] [place] TYPE: Critical Care COMPLAINT: - HYPONATHREMIA DIAGNOSES: - Other [place] [facility] (current[facility] drug therapy - Gastro-esophageal reflux disease without esophagitis - Type 2 diabetes mellitus without complications - Hypo-osmolality and hyponatremia - Allergy status to other drugs, medicaments and biological substances - Other specified postprocedural states - Syndrome of inappropriate secretion of antidiuretic hormone - Other disorders of bilirubin metabolism - Allergy status to narcotic agent [email or web address]
== END 2021-08-25 22:03 | disposition home or self-care (01) ==
LOC: ED 19:53
DX: R51.9 Headache, unspecified (principal); K21.9 Gastro-esophageal reflux disease without esophagitis; Z88.5 Allergy status to narcotic agent; G43.909 Migraine, unspecified, not intractable, without status migrainosus; Z88.8 Allergy status to other drugs, medicaments and biological substances; Z79.899 Other long term (current) drug therapy; Z79.891 Long term (current) use of opiate analgesic
CPT/HCPCS: 99283; A9270

== ENCOUNTER 2021-09-08 06:39 | Inpatient (IN) | payer MEDICARE, OTHER ==
[~2021-09-08] VITALS: Ht 167.6 cm; Wt 53.2 kg
--- OUTSIDE RECORDS SUMMARY | 2021-09-08 06:42 | XMS ---
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 Care History Medical/Surgical 08/29/2021 [facility] -CHW CALLED PATIENT 2X-LEFT A VOICEMAIL FOR A RETURN CALL. CHW CALLED PCP OFFICE- DR CHEEMA- PATIENT HAS AN APT TODAY 08/29/21 @ 2:15PM. CHW STATED THAT THEY SHOULD REVIEW RECENT ED VISITS WITH PATIENT. THEY WILL PROVIDE ED RECORDS TO PROVIDER FOR REVIEW AND FURTHER DISCUSSION WITH PATIENT. 07/17/2021 [facility] - PATIENT HAS A FOLLOW UP APT WITH DR CHEEMA 07/31/21. 06/18/2021 [facility] - PATIENT IS CURRENTLY FOLLOWING UP WITH PCP DR CHEEMA VERY CLOSELY-LAST APT 06/06/21. 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 E.D. VISIT COUNT (12 MO.) 1 [facility] 14 [facility] TOTAL 15 NOTE: Visits indicate total known visits. 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 - Allergy status to narcotic agent - Other mcc (current) drug therapy - Allergy status to other drugs, medicaments and biological substances 08/25/2021 06:51 [facility] [place] [place] TYPE: Emergency COMPLAINT: - BP PROBLEM,HEADACHE DIAGNOSES: - Allergy status to narcotic agent - Other terminal worker (current) drug therapy - Headache, unspecified - Allergy status to other drugs, medicaments and biological substances - Essential (primary) hypertension - Migraine, unspecified, not intractable, without status migrainosus - Gastro-esophageal reflux disease without esophagitis 08/23/2021 20:23 [facility] [place] TYPE: Emergency COMPLAINT: - HEADACHE DIAGNOSES: - Other mcc (current) drug therapy - Allergy status to narcotic agent - Allergy status to other drugs, medicaments and biological substances - Gastro-esophageal reflux disease without esophagitis - Migraine, unspecified, not intractable, without status migrainosus - Headache, unspecified 08/07/2021 07:06 [facility] [place] TYPE: Emergency COMPLAINT: - LEGS TINGLING, FAINT DIAGNOSES: - Cervicalgia - Allergy status to narcotic agent - Gastro-esophageal reflux disease without esophagitis - Unspecified adrenocortical insufficiency - Other mcc (current) drug therapy - Weakness - Hypo-osmolality and hyponatremia - Allergy status to other drugs, medicaments and biological substances 07/23/2021 21:12 [facility] [place]: Emergency COMPLAINT: - MIGRAINE DIAGNOSES: - Headache, unspecified - Migraine, unspecified, not intractable, without status migrainosus - Allergy status to narcotic agent - Allergy status to other drugs, medicaments and biological substances - Gastro-esophageal reflux disease without esophagitis 07/10/2021 04:51 [facility] [place]: Emergency COMPLAINT: - BACK AND NECK PAIN DIAGNOSES: - LOW BACK PAIN, UNSPECIFIED - Other chronic pain - Allergy status to other drugs, medicaments and biological substances - Allergy status to narcotic agent - Gastro-esophageal reflux disease without esophagitis - Cervicalgia - Other mcc (current) drug therapy 06/02/2021 23:28 [facility] [place] TYPE: Emergency COMPLAINT: - WEAKNESS DIAGNOSES: - Unspecified adrenocortical insufficiency - Gastro-esophageal reflux disease without esophagitis - Allergy status to other drugs, medicaments and biological substances - Allergy status to narcotic agent - Volume depletion, unspecified - Allergy status to sulfonamides - Other mcc (current) drug therapy 05/22/2021 06:25 [facility] TYPE: Emergency COMPLAINT: - WEAKNESS 05/12/2021 13:00 [facility] TYPE: Emergency DIAGNOSES: - Abnormal Lab - Hypo-osmolality and hyponatremia - Dizziness 04/27/2021 21:[address] [facility] [place] TYPE: Emergency COMPLAINT: - NAUSEA,HEADACHE 04/15/2021 06:[address] [facility] [place] TYPE: Emergency COMPLAINT: - WEAKNESS, FLU SYMPTOMS 04/13/2021 18:[address] [facility] [place] TYPE: Emergency COMPLAINT: - VOMITING DIAGNOSES: - Other terminal worker (current) drug therapy - Syndrome of inappropriate secretion of antidiuretic hormone - Allergy status to narcotic agent - Allergy status to other drugs, medicaments and biological substances - Nausea with vomiting, unspecified - Type 2 diabetes mellitus without complications - Gastro-esophageal reflux disease without esophagitis 04/13/2021 08:[address] [facility] [place] TYPE: Emergency COMPLAINT: - WEAKNESS, NAUSEA DIAGNOSES: - Allergy status to narcotic agent - Type 2 diabetes mellitus without complications - Gastro-esophageal reflux disease without esophagitis - Allergy status to other drugs, medicaments and biological substances - Syndrome of inappropriate secretion of antidiuretic hormone - Other terminal worker (current) drug therapy 03/23/2021 00:44 [facility] [...] Acquired absence of other organs - Other mcc (current) drug therapy - Primary adrenocortical insufficiency - Acquired absence of other specified parts of digestive tract - Gastro-esophageal reflux disease without esophagitis - Other mcc (current) drug therapy - Allergy status to other drugs, medicaments and biological substances - Allergy status to narcotic agent - Cervicalgia - Other specified postprocedural states - Gastro-esophageal reflux disease without esophagitis - Iron deficiency anemia, unspecified - Syndrome of inappropriate secretion of antidiuretic hormone - Allergy status to other drugs, medicaments and biological substances - Other chronic pain 04/27/2021 21:[address] [facility] [place] TYPE: Observation COMPLAINT: - HYPONATREMIA DIAGNOSES: - Gastro-esophageal reflux disease without esophagitis - Hypo-osmolality and hyponatremia - Syndrome of inappropriate secretion of antidiuretic hormone - Patient's other noncompliance with medication regimen - Allergy status to narcotic agent - Allergy status to other drugs, medicaments and biological substances 04/15/2021 09:[address] [facility] [place] TYPE: Observation COMPLAINT: - HYPONATREMIA/CONSTIPATION DIAGNOSES: - Other terminal worker (current) drug therapy - Postprocedural hypothyroidism - Weakness - Allergy status to narcotic agent - Gastro-esophageal reflux disease without esophagitis - Syndrome of inappropriate secretion of antidiuretic hormone - Constipation, unspecified - Prediabetes - Allergy status to other drugs, medicaments and biological substances 03/23/2021 09:[address] [facility] [place] TYPE: Critical [...] metabolism - Allergy status to narcotic agent [email or web address]
--- NOTE | 2021-09-08 16:32 | EKG ---
[facility] [address] [place] [address] Signed Normal sinus rhythm Low voltage QRS Septal infarct , age undetermined Prolonged QT Abnormal ECG When compared with ECG of 22-MAY-2021 06:29, Septal infarct is now present Confirmed by JOANN QUIÑONES DO ([id number]) on 09/08/2021 4:32:22 PM Electronically Signed By: JOANN QUIÑONES DO 09/08/21 1632 PATIENT NAME: TREJOPASTORA ROEL Electrocardiogram DATE OF : 47 PHYSICIAN: JOANN QUIÑONES DO REPORT #: [id number] REPORT IS CONFIDENTIAL AND NOT TO BE RELEASED WITHOUT AUTHORIZATION
[2021-09-08] MEDS ORDERED: AMITRIPTYLINE H25 MG PO (17:47)
[2021-09-08] MEDS ORDERED: CORTEF10 MG PO (17:49)
[2021-09-08] MEDS ORDERED: CORTEF5 MG PO (17:49)
[2021-09-08] MEDS ORDERED: LATANOPROST2.5 ML OU (17:50)
[2021-09-11] MEDS ORDERED: CO Q-1050 MG PO (13:03)
== END 2021-09-11 13:30 | disposition home or self-care (01) | DRG 92 ==
LOC: ED 06:39 → CCU 11:16 → MS 09-10 11:24
PROVIDERS: ADMIT Student in an Organized Health Care Education/Training Program; ATTEND Student in an Organized Health Care Education/Training Program
DX: G92.8 Other toxic encephalopathy (principal); E27.40 Unspecified adrenocortical insufficiency; Z20.822 Contact with and (suspected) exposure to COVID-19; T43.015A Adverse effect of tricyclic antidepressants, initial encounter; R73.03 Prediabetes; R33.9 Retention of urine, unspecified; G43.909 Migraine, unspecified, not intractable, without status migrainosus; I10 Essential (primary) hypertension; K21.9 Gastro-esophageal reflux disease without esophagitis; Z98.890 Other specified postprocedural states; Z90.49 Acquired absence of other specified parts of digestive tract; Z88.5 Allergy status to narcotic agent; Z88.8 Allergy status to other drugs, medicaments and biological substances; Z79.899 Other long term (current) drug therapy
CPT/HCPCS: 51701; 62270; 70450; 70551; 71045; 80048; 80076; 81001; 82140; 82945; 83735; 84157; 84443; 84484; 85025; 86140; 87070; 87075; 87205; 89051; 93005; 93010; 97161; 99285-25; A9270; C9803; J0133; J1200; J1630; J1650; J1720; J1885; J2060; J2405; J3480; J7030; J7060; J7121; U0003

== ENCOUNTER 2021-09-12 22:14 | Emergency (ER) | payer MEDICARE, OTHER ==
[~2021-09-12] VITALS: Ht 167.6 cm; Wt 53.1 kg
[~2021-09-12 22:14] MED LIST changes: +AMITRIPTYLINE H25 MG PO; +CO Q-1050 MG PO; +CORTEF10 MG PO; +CORTEF5 MG PO
--- OUTSIDE RECORDS SUMMARY | 2021-09-12 22:16 | XMS ---
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 Care History Medical/Surgical 08/29/2021 [facility] -CHW CALLED PATIENT 2X-LEFT A VOICEMAIL FOR A RETURN CALL. CHW CALLED PCP OFFICE- DR CHEEMA- PATIENT HAS AN APT TODAY 08/29/21 @ 2:15PM. CHW STATED THAT THEY SHOULD REVIEW RECENT ED VISITS WITH PATIENT. THEY WILL PROVIDE ED RECORDS TO PROVIDER FOR REVIEW AND FURTHER DISCUSSION WITH PATIENT. 07/17/2021 [facility] - PATIENT HAS A FOLLOW UP APT WITH DR CHEEMA 07/31/21. 06/18/2021 [facility] - PATIENT IS CURRENTLY FOLLOWING UP WITH PCP DR CHEEMA VERY CLOSELY-LAST APT 06/06/21. - PATIENT DIRECTOR LEARNING AND DEVELOPMENT- DR TUCKER - WAS LAST SEEN 06/03/21- CONTACT NUMBER [phone] FAX# [phone]. E.D. VISIT COUNT (12 MO.) [address] TOTAL 16 NOTE: Visits indicate total known visits. 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 - Allergy status to narcotic agent - Other care home (current) drug therapy - Allergy status to other drugs, medicaments and biological substances 08/25/2021 06:51 [facility] [place] TYPE: Emergency COMPLAINT: - BP PROBLEM,HEADACHE DIAGNOSES: - Allergy status to narcotic agent - Other intermediate frame tender (current) drug therapy - Headache, unspecified - Allergy status to other drugs, medicaments and biological substances - Essential (primary) hypertension - Migraine, unspecified, not intractable, without status migrainosus - Gastro-esophageal reflux disease without esophagitis 08/23/2021 20:[address] [facility] [place] TYPE: Emergency COMPLAINT: - HEADACHE DIAGNOSES: - Other intermediate frame tender (current) drug therapy - Allergy status to narcotic agent - Allergy status to other drugs, medicaments and biological substances - Gastro-esophageal reflux disease without esophagitis - Migraine, unspecified, not intractable, without status migrainosus - Headache, unspecified 08/07/2021 07:[address] [facility] [address] [facility] [place] TYPE: Emergency COMPLAINT: - LEGS TINGLING, FAINT DIAGNOSES: - Cervicalgia - Allergy status to narcotic agent - Gastro-esophageal reflux disease without esophagitis - Unspecified adrenocortical insufficiency - Other intermediate frame tender (current) drug therapy - Weakness - Hypo-osmolality and hyponatremia - Allergy status to other drugs, medicaments and biological substances 07/23/2021 21:[address] [facility] [address] [facility] [place] TYPE: Emergency COMPLAINT: - MIGRAINE [...] disease without esophagitis - Cervicalgia - Other care home (current) drug therapy 06/02/2021 23:28 [facility] [place] TYPE: Emergency COMPLAINT: - WEAKNESS DIAGNOSES: - Unspecified adrenocortical insufficiency - Gastro-esophageal reflux disease without esophagitis - Allergy status to other drugs, medicaments and biological substances - Allergy status to narcotic agent - Volume depletion, unspecified - Allergy status to sulfonamides - Other intermediate frame tender (current) drug therapy 05/22/2021 06:25 [facility] [place] TYPE: Emergency COMPLAINT: - WEAKNESS 05/12/2021 13:00 [facility] TYPE: Emergency DIAGNOSES: - Abnormal Lab - Hypo-osmolality and hyponatremia - Dizziness 04/27/2021 21:[address] [facility] [address] [facility] [place] TYPE: Emergency COMPLAINT: - NAUSEA,HEADACHE 04/15/2021 06:[address] [facility] [address] [facility] [place] TYPE: Emergency COMPLAINT: - WEAKNESS, FLU SYMPTOMS 04/13/2021 18:[address] [facility] [address] [facility] [place] TYPE: Emergency COMPLAINT: - VOMITING DIAGNOSES: - Other care home (current) drug therapy - Syndrome of inappropriate [...] secretion of antidiuretic hormone - Other intermediate frame tender (current) drug therapy 03/23/2021 00:44 [facility] [place] TYPE: Emergency COMPLAINT: - VOMITING INPATIENT VISIT TRACKING (12 MO.) 09/08/2021 11:16 [facility] [place] TYPE: Medical Surgical COMPLAINT: - ENCEPHALOPATHY DIAGNOSES: - Adverse effect of tricyclic antidepressants, initial encounter - Allergy status to narcotic agent - Migraine, unspecified, not intractable, without status migrainosus - Allergy status to narcotic agent - Prediabetes - Unspecified adrenocortical insufficiency - Unspecified adrenocortical insufficiency - Other specified postprocedural states - Other intermediate frame tender (current) drug therapy - OTHER TOXIC ENCEPHALOPATHY - Adverse effect of tricyclic antidepressants, initial encounter - Essential (primary) hypertension - Allergy status to other drugs, medicaments and biological substances - Prediabetes - Retention of urine, unspecified - Gastro-esophageal reflux disease without esophagitis - Other care home (current) drug therapy - Allergy status to other drugs, medicaments and biological substances - Acquired absence of other specified parts of digestive tract - Acquired absence of other specified parts of digestive tract - Gastro-esophageal reflux disease without esophagitis - Retention of urine, unspecified - Essential (primary) hypertension - Migraine, unspecified, not intractable, without status migrainosus - Other specified postprocedural states 05/24/2021 15:[address] [facility] [place] TYPE: Medical Surgical COMPLAINT: - SYNCOPE [...] Acquired absence of other organs - Other intermediate frame tender (current) drug therapy - Primary adrenocortical insufficiency - Acquired absence of other specified parts of digestive tract - Gastro-esophageal reflux disease without esophagitis - Other intermediate frame tender (current) drug therapy - Allergy status to other drugs, medicaments and biological substances - Allergy status to narcotic agent - Cervicalgia - Other specified postprocedural states - Gastro-esophageal reflux disease without esophagitis - Iron deficiency anemia, unspecified - Syndrome of inappropriate secretion of antidiuretic hormone - Allergy status to other drugs, medicaments and biological substances - Other chronic pain 04/27/2021 21:46 [facility] [place] TYPE: Observation COMPLAINT: - HYPONATREMIA DIAGNOSES: - Gastro-esophageal reflux disease without esophagitis - Hypo-osmolality and hyponatremia - Syndrome of inappropriate secretion of antidiuretic hormone - Patient's other noncompliance with medication regimen - Allergy status to narcotic agent - Allergy status to other drugs, medicaments and biological substances 04/15/2021 09:56 [facility] [place] TYPE: Observation COMPLAINT: - HYPONATREMIA/CONSTIPATION DIAGNOSES: - Other intermediate frame tender (current) drug therapy - Postprocedural hypothyroidism - [...] metabolism - Allergy status to narcotic agent [email or web address]
[2021-09-13] MEDS ORDERED: K-TAB ER20 MEQ PO (01:00)
--- NOTE | 2021-09-13 21:58 | EKG ---
[facility] [address] [place] [address] Signed Normal sinus rhythm Septal infarct (cited on or before 08-SEP-2021) Inferior infarct , age undetermined Abnormal ECG When compared with ECG of 08-SEP-2021 06:53, Inferior infarct is now present Questionable change in initial forces of Septal leads QT has shortened Confirmed by STEFFANIE WICK MD ([id number]) on 09/13/2021 9:58:19 PM Electronically Signed By: STEFFANIE WICK MD 09/13/21 2158 PATIENT NAME: PASTORA TREJO ROEL Electrocardiogram DATE OF : 47 PHYSICIAN: STEFFANIE WICK MD REPORT #: [id number] REPORT IS CONFIDENTIAL AND NOT TO BE RELEASED WITHOUT AUTHORIZATION
== END 2021-09-13 02:25 | disposition home or self-care (01) ==
LOC: ED 22:14
DX: E87.6 Hypokalemia (principal); G43.909 Migraine, unspecified, not intractable, without status migrainosus; I10 Essential (primary) hypertension; K21.9 Gastro-esophageal reflux disease without esophagitis; Z88.5 Allergy status to narcotic agent; Z88.8 Allergy status to other drugs, medicaments and biological substances
CPT/HCPCS: 80053; 81001; 84132; 85025; 93005; 93010; 96365; 96366; 96375; 99285-25; J1885; J2405; J2550; J3480

== ENCOUNTER 2022-02-18 07:02 | Emergency (ER) | payer MEDICARE, OTHER ==
[~2022-02-18] VITALS: Ht 167.6 cm; Wt 55.4 kg
--- OUTSIDE RECORDS SUMMARY | 2022-02-18 07:05 | XMS ---
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 Care History Medical/Surgical 09/16/2021 [facility] - W CALLED AND LEFT PATIENT A VOICEMAIL. - CHW CONTACTED ORNAMENTAL IRONWORKER HELPER DR Tiffanie Oates MD- PATIENT HAS AN APT NEXT MONTH 10/16/21 FOR FOLLOW UP. THEY DID NOT HAVE THE MOST RECENT ED VISIT FOR REVIEW. CHW FAXED CLINICAL AT PHYSICIAN REQUEST FOR REVIEW TO SEE IF AN EARLIER APT CAN BE SCHEDULED. ORNAMENTAL IRONWORKER HELPER CONTACT #: [phone]. 08/29/2021 [facility] -CHW CALLED PATIENT 2X-LEFT A VOICEMAIL FOR A RETURN CALL. CHW CALLED PCP OFFICE- DR CHEEMA- PATIENT HAS AN APT TODAY 08/29/21 @ 2:15PM. CHW STATED THAT THEY SHOULD REVIEW RECENT ED VISITS WITH PATIENT. THEY WILL PROVIDE ED RECORDS TO PROVIDER FOR REVIEW AND FURTHER DISCUSSION WITH PATIENT. 07/17/2021 [facility] - PATIENT HAS A FOLLOW UP APT WITH DR CHEEMA 07/31/21. Faby VISIT COUNT (12 MO.) 1 [facility] 16 [facility] TOTAL 17 NOTE: Visits indicate total known visits. ED/C VISIT TRACKING (12 MO.) 02/18/2022 07:03 [facility] [place] TYPE: Emergency COMPLAINT: - FEVER, CONGESTION, LIGHT HEADED 09/12/2021 22:15 [facility] [place] TYPE: Emergency COMPLAINT: - DIZZINESS DIAGNOSES: - Gastro-esophageal reflux disease without esophagitis - Essential (primary) hypertension - Migraine, unspecified, not intractable, without status migrainosus - Allergy status to other drugs, medicaments and biological substances - Dizziness and giddiness - Hypokalemia - Allergy status to narcotic agent 09/08/2021 06:40 [facility] [place] TYPE: Emergency COMPLAINT: - DIZZINESS 08/25/2021 19:54 [facility] [place] TYPE: Emergency COMPLAINT: - HEADACHE HIGH BLOOD PRESSURE DIAGNOSES: - Migraine, unspecified, not intractable, without status migrainosus - Headache, unspecified - Gastro-esophageal reflux disease without esophagitis - 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 - Allergy status to narcotic agent - Other long term care social worker (current) drug therapy - Allergy status to other drugs, medicaments and biological substances 08/25/2021 06:51 [facility] [place] TYPE: Emergency COMPLAINT: - BP PROBLEM,HEADACHE DIAGNOSES: - Allergy status to narcotic agent - Other intermediate (current) drug therapy - Headache, unspecified - Allergy status to other drugs, medicaments and biological substances - Essential (primary) hypertension - Migraine, unspecified, not intractable, without status migrainosus - Gastro-esophageal reflux disease without esophagitis 08/23/2021 20:23 [facility] [place] TYPE: Emergency COMPLAINT: - HEADACHE DIAGNOSES: - Other intermediate (current) drug therapy - Allergy status to narcotic agent - Allergy status to other drugs, medicaments and biological substances - Gastro-esophageal reflux disease without esophagitis - Migraine, unspecified, not intractable, without status migrainosus - Headache, unspecified 08/07/2021 07:06 [facility] [place] TYPE: Emergency COMPLAINT: - LEGS TINGLING, FAINT DIAGNOSES: - Cervicalgia - Allergy status to narcotic agent - Gastro-esophageal reflux disease without esophagitis - Contact with and (suspected) exposure to COVID-19 - Unspecified adrenocortical insufficiency - Other long term care social worker (current) drug therapy - Weakness - Hypo-osmolality and hyponatremia - Allergy status to other drugs, medicaments and biological substances 07/23/2021 21:12 [facility] [place] TYPE: Emergency COMPLAINT: - MIGRAINE DIAGNOSES: - Headache, unspecified - Migraine, unspecified, not intractable, without status migrainosus - Allergy status to narcotic agent - Allergy status to other drugs, medicaments and biological substances - Gastro-esophageal reflux disease without esophagitis 07/10/2021 04:51 [facility] [place] [place] TYPE: Emergency COMPLAINT: - BACK AND NECK PAIN DIAGNOSES: - LOW BACK PAIN, UNSPECIFIED - Other chronic pain - Low back pain, unspecified - Allergy status to other drugs, medicaments and biological substances - Allergy status to narcotic agent - Gastro-esophageal reflux disease without esophagitis - Cervicalgia - Other long term care social worker (current) drug therapy 06/02/2021 23:28 [facility] [place] TYPE: Emergency COMPLAINT: - WEAKNESS DIAGNOSES: - Unspecified adrenocortical insufficiency - Gastro-esophageal reflux disease without esophagitis - Allergy status to other drugs, medicaments and biological substances - Allergy status to narcotic agent - Volume depletion, unspecified - Allergy status to sulfonamides - Other intermediate (current) drug therapy 05/22/2021 06:25 [facility] [place] TYPE: Emergency COMPLAINT: - WEAKNESS 05/12/2021 13:00 [facility] TYPE: Emergency DIAGNOSES: - Abnormal Lab - Hypo-osmolality and hyponatremia - Dizziness 04/27/2021 21:45 [facility] [place] TYPE: Emergency COMPLAINT: - NAUSEA,HEADACHE 04/15/2021 06:11 [facility] [place] TYPE: Emergency COMPLAINT: - WEAKNESS, FLU SYMPTOMS 04/13/2021 18:34 [facility] [place] TYPE: Emergency COMPLAINT: - VOMITING DIAGNOSES: - Other long term care social worker (current) drug therapy - Syndrome of [...] inappropriate secretion of antidiuretic hormone - Other long term care social worker (current) drug therapy 03/23/2021 00:44 [facility] [place] TYPE: Emergency COMPLAINT: - VOMITING INPATIENT VISIT TRACKING (12 MO.) 09/08/2021 11:16 [facility] [place] TYPE: Medical Surgical COMPLAINT: - ENCEPHALOPATHY DIAGNOSES: - Adverse effect of tricyclic antidepressants, initial encounter - Allergy status to narcotic agent - Migraine, unspecified, not intractable, without status migrainosus - Other toxic encephalopathy - Allergy status to narcotic agent - Prediabetes - Unspecified adrenocortical insufficiency - Unspecified adrenocortical insufficiency - Other specified postprocedural states - Other intermediate (current) drug therapy - OTHER TOXIC ENCEPHALOPATHY - Adverse effect of tricyclic antidepressants, initial encounter - Essential (primary) hypertension - Allergy status to other drugs, medicaments and biological substances - Prediabetes - Retention of urine, unspecified - Gastro-esophageal reflux disease without esophagitis - Other long term care social worker (current) drug therapy - Allergy status to other drugs, medicaments and biological substances - Acquired absence of other specified parts of digestive tract - Contact with and (suspected) exposure to COVID-19 - Acquired absence of other specified parts of digestive tract - Gastro-esophageal reflux disease without esophagitis - Retention of urine, unspecified - Essential (primary) hypertension - Migraine, unspecified, not intractable, without status migrainosus - Other specified postprocedural states 05/24/2021 15:32 [facility] [place] TYPE: Medical Surgical COMPLAINT: - SYNCOPE DIAGNOSES: - Other long term care social worker (current) drug therapy - Syndrome of inappropriate secretion of antidiuretic hormone - Cervicalgia - Iron deficiency anemia, unspecified - Other chronic pain - Dehydration - Other specified postprocedural states - Primary adrenocortical insufficiency - Acquired absence of other specified parts of digestive tract - Dehydration - Allergy status to narcotic agent - Orthostatic hypotension - Acquired absence of other organs - Contact with and (suspected) exposure to COVID-19 - Primary adrenocortical insufficiency - Acquired absence of other organs - Acquired absence of other specified parts of digestive tract - Gastro-esophageal reflux disease without esophagitis - Other intermediate (current) drug therapy - Allergy status [...] - Gastro-esophageal reflux disease without esophagitis - Contact with and (suspected) exposure to COVID-19 - Hypo-osmolality and hyponatremia - Syndrome of inappropriate secretion of antidiuretic hormone - Patient's other noncompliance with medication regimen - Allergy status to narcotic agent - Allergy status to other drugs, medicaments and biological substances 04/15/2021 09:56 [facility] [place] TYPE: Observation COMPLAINT: - HYPONATREMIA/CONSTIPATION DIAGNOSES: - Contact with and (suspected) exposure to COVID-19 - Other long term care social worker (current) drug therapy - Postprocedural hypothyroidism - Weakness - Allergy status to narcotic agent - Gastro-esophageal reflux disease without esophagitis - Syndrome of inappropriate secretion of antidiuretic hormone - Constipation, unspecified - Prediabetes - Allergy status to other drugs, medicaments and biological substances 03/23/2021 09:22 [facility] [place] TYPE: Critical Care COMPLAINT: - HYPONATHREMIA DIAGNOSES: - Other long term care social worker (current) drug therapy - Gastro-esophageal reflux disease without esophagitis - Type 2 diabetes mellitus without complications - Hypo-osmolality and hyponatremia - Allergy status to other drugs, medicaments and biological substances - Other specified postprocedural states - Contact with and (suspected) exposure to COVID-19 - Syndrome of inappropriate secretion of antidiuretic hormone - Other disorders of bilirubin metabolism - Allergy status to narcotic agent [email or web address]
--- NOTE | 2022-02-19 18:17 | EKG ---
[facility] [address] [facility] [place] [address] Signed Normal sinus rhythm Low voltage QRS Cannot rule out Anterior infarct (cited on or before 08-SEP-2021) Abnormal ECG When compared with ECG of 12-SEP-2021 22:21, Questionable change in initial forces of Anteroseptal leads Confirmed by VIJAY FELIX MD ([id number]) on 02/19/2022 6:17:22 PM Electronically Signed By: VIJAY FELIX MD 02/19/22 181 PATIENT NAME: PASTORA TREJO Dayami Electrocardiogram DATE OF : 47 PHYSICIAN: VIJAY FELIX MD REPORT #: [id number] REPORT IS CONFIDENTIAL AND NOT TO BE RELEASED WITHOUT AUTHORIZATION
== END 2022-02-18 08:55 | disposition home or self-care (01) ==
LOC: ED 07:02
DX: U07.1 COVID-19 (principal); Z88.5 Allergy status to narcotic agent; Z88.8 Allergy status to other drugs, medicaments and biological substances
CPT/HCPCS: 36415; 71045; 80053; 81001; 83605; 83735; 84443; 85025; 87040; 87502; 87880; 93005; 93010; C9803; J1720; J7121; U0003

== ENCOUNTER 2022-02-19 08:36 | Observation (INO) | payer MEDICARE, OTHER ==
[~2022-02-19] VITALS: Ht 167.6 cm; Wt 55.8 kg
--- OUTSIDE RECORDS SUMMARY | 2022-02-19 08:39 | XMS ---
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 Care History Medical/Surgical 09/16/2021 [facility] - CHW CALLED AND LEFT PATIENT A VOICEMAIL. - CHW CONTACTED REFRACTORY MIXER DR Tiffanie Oates MD- PATIENT HAS AN APT NEXT MONTH 10/16/21 FOR FOLLOW UP. THEY DID NOT HAVE THE MOST RECENT ED VISIT FOR REVIEW. CHW FAXED CLINICAL AT PHYSICIAN REQUEST FOR REVIEW TO SEE IF AN EARLIER APT CAN BE SCHEDULED. REFRACTORY MIXER CONTACT #: [phone]. 08/29/2021 [facility] -CHW CALLED PATIENT 2X-LEFT A VOICEMAIL FOR A RETURN CALL. CHW CALLED PCP OFFICE- DR CHEEMA- PATIENT HAS AN APT TODAY 08/29/21 @ 2:15PM. CHW STATED THAT THEY SHOULD REVIEW RECENT ED VISITS WITH PATIENT. THEY WILL PROVIDE ED RECORDS TO PROVIDER FOR REVIEW AND FURTHER DISCUSSION WITH PATIENT. 07/17/2021 [facility] - PATIENT HAS A FOLLOW UP APT WITH DR CHEEMA 07/31/21. EFelipa VISIT COUNT (12 MO.) 1 [facility] NOTE: Visits indicate total known visits. ED/C VISIT TRACKING (12 MO.) 02/19/2022 08:37 [facility] [place] [place] Emergency COMPLAINT: - SYNCOPE, VOMITING 02/18/2022 07:[address] [facility] [place] TYPE: Emergency COMPLAINT: - FEVER, CONGESTION, LIGHT HEADED 09/12/2021 22:15 [facility] [place] [facility] [place] TYPE: Emergency COMPLAINT: - DIZZINESS DIAGNOSES: - Gastro-esophageal reflux disease without esophagitis - Essential (primary) hypertension - Migraine, unspecified, not intractable, without status migrainosus - Allergy status to other drugs, medicaments and biological substances - Dizziness and giddiness - Hypokalemia - Allergy status to narcotic agent 09/08/2021 06:[address] [facility] 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 - Allergy status to narcotic agent - Other terminal computer operator (current) drug therapy - Allergy status to other drugs, medicaments and biological substances 08/25/2021 06:51 [facility] [place]: Emergency COMPLAINT: - BP PROBLEM,HEADACHE DIAGNOSES: - Allergy status to narcotic agent - Other care home (current) drug therapy - Headache, unspecified - Allergy status to other drugs, medicaments and biological substances - Essential (primary) hypertension - Migraine, unspecified, not intractable, without status migrainosus - Gastro-esophageal reflux disease without esophagitis 08/23/2021 20:23 [facility] [place] TYPE: Emergency COMPLAINT: - HEADACHE DIAGNOSES: - Other 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 computer operator (current) drug therapy - Allergy status to [...] COVID-19 - Unspecified adrenocortical insufficiency - Other terminal computer operator (current) drug therapy - Weakness - Hypo-osmolality and hyponatremia - Allergy status to other drugs, medicaments and biological substances 07/23/2021 21:12 [facility] [place] TYPE: Emergency COMPLAINT: - MIGRAINE DIAGNOSES: [...] disease without esophagitis - Cervicalgia - Other terminal computer operator (current) drug therapy 06/02/2021 23:28 [facility] [place] [...] TYPE: Emergency COMPLAINT: - WEAKNESS 05/12/2021 13:00 [facility] TYPE: Emergency DIAGNOSES: - Abnormal Lab - Hypo-osmolality and hyponatremia - Dizziness 04/27/2021 21:45 [facility] [place] TYPE: Emergency COMPLAINT: - NAUSEA,HEADACHE 04/15/2021 06:11 [facility] [place] TYPE: Emergency COMPLAINT: - WEAKNESS, FLU SYMPTOMS 04/13/2021 18:[address] [facility] [facility] [place] TYPE: Emergency COMPLAINT: - VOMITING DIAGNOSES: - Other terminal computer operator (current) drug therapy - Syndrome of inappropriate secretion of antidiuretic hormone - Allergy status to narcotic agent - Allergy status to other drugs, medicaments and biological substances - Nausea with vomiting, unspecified - Type 2 diabetes mellitus without complications - Gastro-esophageal reflux disease without esophagitis 04/13/2021 08:[address] [facility] [facility] [place] TYPE: Emergency COMPLAINT: - WEAKNESS, NAUSEA DIAGNOSES: - Allergy status to narcotic agent - Type 2 diabetes mellitus without complications - Gastro-esophageal reflux disease without esophagitis - Allergy status to other drugs, medicaments and biological substances - Syndrome of inappropriate secretion of antidiuretic hormone - Other care home (current) drug therapy 03/23/2021 00:44 [facility] [place] [...] - Other specified postprocedural states - Other care home (current) drug therapy - OTHER TOXIC ENCEPHALOPATHY - Adverse effect of tricyclic antidepressants, initial encounter - Essential (primary) hypertension - Allergy status to other drugs, medicaments and biological substances - Prediabetes - Retention of urine, unspecified - Gastro-esophageal reflux disease without esophagitis - Other terminal computer operator (current) drug therapy - Allergy status to [...] Surgical COMPLAINT: - SYNCOPE DIAGNOSES: - Other care home (current) drug [...] and (suspected) exposure to COVID-19 - Other terminal computer operator (current) drug therapy - Postprocedural hypothyroidism - Weakness - Allergy status to narcotic agent - Gastro-esophageal reflux disease without esophagitis - Syndrome of inappropriate secretion of antidiuretic hormone - Constipation, unspecified - Prediabetes - Allergy status to other drugs, medicaments and biological substances 03/23/2021 09:22 [facility] [place] TYPE: Critical Care COMPLAINT: - HYPONATHREMIA DIAGNOSES: - Other terminal computer operator (current) drug therapy - Gastro-esophageal reflux disease without esophagitis - Type 2 diabetes mellitus without complications - Hypo-osmolality and hyponatremia - Allergy status to other drugs, medicaments and biological substances - Other specified postprocedural states - Contact with and (suspected) exposure to COVID-19 - Syndrome of inappropriate secretion of antidiuretic hormone - Other disorders of bilirubin metabolism - Allergy status to narcotic agent [email or web address]
--- NOTE | 2022-02-19 18:19 | EKG ---
[facility] [address] [facility] [place] [address] Signed Normal sinus rhythm Low voltage QRS Borderline ECG When compared with ECG of 18-FEB-2022 07:14, (Unconfirmed) Minimal criteria for Anterior infarct are no longer present Confirmed by VIJAY FELIX MD ([id number]) on 02/19/2022 6:19:22 PM Electronically Signed By: VIJAY FELIX MD 02/19/22 1819 PATIENT NAME: TREJOPASTORA Electrocardiogram DATE OF : 47 PHYSICIAN: VIJAY FELIX MD REPORT #: [id number] REPORT IS CONFIDENTIAL AND NOT TO BE RELEASED WITHOUT AUTHORIZATION
[2022-02-20] MEDS ORDERED: POTASSIUM CHLO20 ME1 PO (10:55)
[2022-02-20] MEDS ORDERED: TYLENOL EXTRA500 MG PO (10:56)
[2022-02-20] MEDS ORDERED: IBUPROFEN200 MG PO (10:57)
== END 2022-02-20 14:45 | disposition home or self-care (01) ==
LOC: ED 08:36 → MS 08:38
PROVIDERS: ADMIT Internal Medicine; ATTEND Internal Medicine
DX: U07.1 COVID-19 (principal); E27.2 Addisonian crisis; E87.1 Hypo-osmolality and hyponatremia; E87.6 Hypokalemia; K21.9 Gastro-esophageal reflux disease without esophagitis; I10 Essential (primary) hypertension; Z88.5 Allergy status to narcotic agent; Z88.8 Allergy status to other drugs, medicaments and biological substances; E20.9 Hypoparathyroidism, unspecified; E03.9 Hypothyroidism, unspecified
CPT/HCPCS: 36415; 71045; 80048; 80053; 84484; 85025; 93005; 93010; A9270; G0378; J1720; J2405; J3480; J7121

== ENCOUNTER 2022-12-31 16:48 | Emergency (ER) | payer OTHER, MEDICARE ==
[~2022-12-31] VITALS: Ht 167.6 cm; Wt 55.8 kg
--- NOTE | ~2022-12-31 | EKG ---
[facility] [address] [facility] [place], [place] [address] Draft EK completed, results pending confirmation PATIENT NAME: PASTORA TREJO Electrocardiogram DATE OF : 47 PHYSICIAN: PRELIMINARY REPORT #: [id number] REPORT IS CONFIDENTIAL AND NOT TO BE RELEASED WITHOUT AUTHORIZATION
[~2022-12-31 16:48] MED LIST changes: +IBUPROFEN200 MG PO; +POTASSIUM CHLO20 ME1 PO; +TYLENOL EXTRA500 MG PO
--- OUTSIDE RECORDS SUMMARY | 2022-12-31 16:52 | XMS ---
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 Current PHONE: Unknown Bakari has no Care Guidelines for this patient. Care History Medical/Surgical 09/16/2021 [facility] - CHW CALLED AND LEFT PATIENT A VOICEMAIL. - CHW CONTACTED PHARMACY SERVICES REPRESENTATIVE DR Tiffanie Oates MD- PATIENT HAS AN APT NEXT MONTH 10/16/21 FOR FOLLOW UP. THEY DID NOT HAVE THE MOST RECENT ED VISIT FOR REVIEW. CHW FAXED CLINICAL AT PHYSICIAN REQUEST FOR REVIEW TO SEE IF AN EARLIER APT CAN BE SCHEDULED. PHARMACY SERVICES REPRESENTATIVE CONTACT #: [phone]. 08/29/2021 [facility] -CHW CALLED PATIENT 2X-LEFT A VOICEMAIL FOR A RETURN CALL. CHW CALLED PCP OFFICE- DR CHEEMA- PATIENT HAS AN APT TODAY 08/29/21 @ 2:15PM. CHW STATED THAT THEY SHOULD REVIEW RECENT ED VISITS WITH PATIENT. THEY WILL PROVIDE ED RECORDS TO PROVIDER FOR REVIEW AND FURTHER DISCUSSION WITH PATIENT. 07/17/2021 [facility] - PATIENT HAS A FOLLOW UP APT WITH DR CHEEMA 07/31/21. Faby VISIT COUNT (12 MO.) 3 [facility] TOTAL 3 NOTE: Visits indicate total known visits. ED/C VISIT TRACKING (12 MO.) 12/31/2022 16:49 [facility] [place] TYPE: Emergency COMPLAINT: - EXTREMITY PAIN/INJURY 02/19/2022 08:37 [facility] [place] TYPE: Emergency COMPLAINT: - SYNCOPE, VOMITING 02/18/2022 07:[address] [facility] [place] TYPE: Emergency COMPLAINT: - FEVER, CONGESTION, LIGHT HEADED DIAGNOSES: - Allergy status to narcotic agent - Allergy status to other drugs, medicaments and biological substances - COVID-19 - Fever, unspecified INPATIENT VISIT TRACKING (12 MO.) 02/19/2022 08:[address] [facility] [place] TYPE: Observation COMPLAINT: - ADRENAL CRISIS, COVID19, HYPONATREMIA, HYPOKALEMIA DIAGNOSES: - Addisonian crisis - Allergy status to narcotic agent - Allergy status to other drugs, medicaments and biological substances - COVID-19 - Essential (primary) hypertension - Gastro-esophageal reflux disease without esophagitis - Hypo-osmolality and hyponatremia - Hypokalemia - Hypoparathyroidism, unspecified - Hypothyroidism, unspecified [email or web address]
[2022-12-31] MEDS ORDERED: OMEPRAZOLE20 MG PO (17:12)
[2022-12-31 18:48] VITALS: BP 140/85
== END 2022-12-31 18:48 | disposition home or self-care (01) ==
LOC: ED 16:48
DX: S40.022A Contusion of left upper arm, initial encounter (principal); R55 Syncope and collapse; I10 Essential (primary) hypertension; K21.9 Gastro-esophageal reflux disease without esophagitis; W55.22XA Struck by cow, initial encounter; Z88.5 Allergy status to narcotic agent; Z88.8 Allergy status to other drugs, medicaments and biological substances; Z79.899 Other long term (current) drug therapy
CPT/HCPCS: 36415; 73060; 80053; 85025; 93005; 93010; J1885; J7030